=== PATIENT | female | born 1940 | race Hispanic/Latino ===

== ENCOUNTER → 2018-07-17 | Outpatient (CLI) | payer OTHER | END | disposition home or self-care (01) | LOC: RAH 13:16 | PROVIDERS: ATTEND Internal Medicine | DX: I12.9 Hypertensive chronic kidney disease with stage 1 through stage 4 chronic kidney disease, or unspecified chronic kidney disease (principal); E11.22 Type 2 diabetes mellitus with diabetic chronic kidney disease; N18.9 Chronic kidney disease, unspecified; Z76.89 Persons encountering health services in other specified circumstances | CPT/HCPCS: 93922 ==

== ENCOUNTER 2019-07-10 07:54 | Day surgery (SDC) | payer OTHER ==
[~2019-07-10] VITALS: Ht 177.8 cm; Wt 94.3 kg
[~2019-07-10 07:54] MED LIST: ACET-2743 PO; ALLO100T PO; BISA5TAB12 PO; CA C1TAB95 PO; CLOP75TA32 PO; CYAN250014 PO; FURO20TA4 PO; MELA1TAB21 PO; MULT-1203 PO; OMEP40CA13 PO; PRAV20TA4 PO; SODIUM CHLORIDE 0.9% 1000ML 1,000 ML IV ONE; VENL150C2 PO
[2019-07-10 09:26] VITALS: BP 129/73
[2019-07-10] MEDS ORDERED: PROPOFOL 10 MG/ML 20ML VIAL IV ONE ×2 (09:59)
[2019-07-10] MEDS ORDERED: PHENYLEPHRINE HCL 10 MG/ML 1ML VIAL IV ONE (10:31)
[2019-07-10 10:40] VITALS: BP 158/94
[2019-07-10 10:46] VITALS: BP 131/69
[2019-07-10 10:54] VITALS: BP 125/77
[2019-07-10 11:00] VITALS: BP 121/69
== END 2019-07-10 11:05 | disposition home or self-care (01) ==
LOC: DAH 07:54 → ENDO 07:54
PROVIDERS: ATTEND Internal Medicine Gastroenterology
DX: K59.00 Constipation, unspecified (principal); D12.3 Benign neoplasm of transverse colon; D12.4 Benign neoplasm of descending colon; J44.9 Chronic obstructive pulmonary disease, unspecified; E11.69 Type 2 diabetes mellitus with other specified complication; F32.9 Major depressive disorder, single episode, unspecified; E78.5 Hyperlipidemia, unspecified; F41.9 Anxiety disorder, unspecified; M19.90 Unspecified osteoarthritis, unspecified site; Z90.710 Acquired absence of both cervix and uterus; Z98.890 Other specified postprocedural states; Z98.49 Cataract extraction status, unspecified eye; Z98.84 Bariatric surgery status; Z96.659 Presence of unspecified artificial knee joint
CPT/HCPCS: 45380; A4215; A4221; A4222; A4223; A4606; A4615; A4663; J2370; J2704 ×2; J7030

== ENCOUNTER → 2020-01-01 | Outpatient (CLI) | payer OTHER ==
[~2020-01-01] MED LIST changes: +REGADENOSON 0.4 MG/5 ML PF SYG IVP SCH; -SODIUM CHLORIDE 0.9% 1000ML 1,000 ML IV ONE
== END | disposition home or self-care (01) ==
LOC: SHCH 08:27
PROVIDERS: ATTEND Internal Medicine Cardiovascular Disease
DX: R07.9 Chest pain, unspecified (principal)
CPT/HCPCS: 78452; 93017; 96374; A9500 ×2; J2785

== ENCOUNTER 2020-07-21 13:49 | Inpatient (IN) | payer OTHER ==
[~2020-07-21] VITALS: Ht 177.8 cm; Wt 98.0 kg
[~2020-07-21 13:49] MED LIST changes: -OMEP40CA13 PO; +OMEP40CA21 PO; -REGADENOSON 0.4 MG/5 ML PF SYG IVP SCH
[2020-07-21] MEDS ORDERED: 0.9% NACL 500ML IV.SOLN 500 ML IV ONE (14:38)
[2020-07-21] MEDS ORDERED: ADENOSINE 6MG VIAL IV ONE ×2 (14:39→14:55)
[2020-07-21] MEDS ORDERED: ASPIRIN 325 MG TABLET ONE (14:40)
[2020-07-21 14:44] LABS: BASOPHILS % (AUTO) 0.9 % (0.0-5.0); EOSINOPHILS % (AUTO) 4.5 % (0.0-8.0); LYMPHOCYTES % (AUTO) 43.5 % (21.0-51.0); MEAN CORPUSCULAR HEMOGLOBIN 33.7 pg (27.0-33.0); MEAN CORPUSCULAR HGB CONC 33.5 g/dL (32.0-36.0); MEAN CORPUSCULAR VOLUME 100.6 fL (79-99); MONOCYTES % (AUTO) 7.2 % (3.0-13.0); NEUTROPHILS % (AUTO) 43.7 % (40.0-77.0); PLATELET COUNT (AUTO) 212 K/uL (130-400); RED BLOOD CELL COUNT(AUTO) 3.38 MIL/uL (4.00-5.50); RED CELL DISTRIBUTION WIDTH 13.2 % (11.0-15.5); WHITE BLOOD COUNT (AUTO) 5.6 K/uL (4.8-10.8)
[2020-07-21 14:57] LABS: CREATININE 1.1 mg/dL (0.5-1.5); POTASSIUM 3.6 mmol/L (3.5-5.1)
[2020-07-21 14:59] LABS: INR 1.21 (0.85-1.15)
[2020-07-21 15:01] LABS: PARTIAL THROMBOPLASTIN TIME 32.2 SEC (26.3-35.5)
[2020-07-21 15:02] LABS: ALBUMIN 3.4 g/dL (3.5-5.0); BILIRUBIN,TOTAL 0.4 mg/dL (0.2-1.0); TOTAL PROTEIN, SERUM 6.8 g/dL (6.0-8.3)
[2020-07-21] MEDS ORDERED: DILTIAZEM 50MG VIAL IV ONE (15:03)
[2020-07-21 15:04] LABS: B-TYPE NATRIURETIC PEPTIDE 241 pg/mL (0-100)
[2020-07-21] MEDS ORDERED: DILTIAZEM 125 MG/25 ML INJ IV ONE ×2 (16:24→23:34)
[2020-07-21 16:57] LABS: APPEARANCE,URINE Clear (CLEAR); BILIRUBIN,URINE Negative (NEGATIVE); COLOR,URINE Yellow (YELLOW); GLUCOSE, URINE (UA) Negative (NEGATIVE); KETONES,URINE Negative (NEGATIVE); LEUKOCYTE ESTERASE ,URINE Negative (NEGATIVE); NITRATE,URINE Negative (NEGATIVE); OCCULT BLOOD,URINE Negative (NEGATIVE); PH,URINE 5.5 (5.0-8.0); PROTEIN,URINE Negative (NEGATIVE); UROBILINOGEN,URINE 0.2 mg/dL (0.2-1.0)
[2020-07-21 17:05] LABS: AMPHET/METH SCREEN,URINE NEGATIVE (NEGATIVE); BARBITURATE SCREEN, URINE NEGATIVE (NEGATIVE); BENZODIAZEPINES SCREEN,URINE NEGATIVE (NEGATIVE); CANNABINOID SCREEN,URINE NEGATIVE (NEGATIVE); COCAINE SCREEN,URINE NEGATIVE (NEGATIVE); OPIATE SCREEN,URINE NEGATIVE (NEGATIVE); PHENCYCLIDINE SCREEN,URINE NEGATIVE (NEGATIVE)
[2020-07-21] MEDS ORDERED: DILTIAZEM 125MG+100 ML NS 125 ML IV SCH (19:45)
[2020-07-21] MEDS: ENOXAPARIN SODIUM 40 MG/0.4 ML SYRINGE SQ SCH (21:00)
[2020-07-21 23:25] VITALS: BP 105/63
[2020-07-21] MEDS ORDERED: 0.9%NACL 100ML 100 ML IV ONE (23:34)
[2020-07-22] VITALS (12 sets, daily range): BP systolic 94–125; BP diastolic 52–76
[2020-07-22] MEDS ORDERED: MELA5TAB14 PO (00:35)
[2020-07-22] MEDS ORDERED: CYAN-35 PO (00:35)
[2020-07-22] MEDS ORDERED: SENN1TAB53 PO (00:35)
[2020-07-22] MEDS ORDERED: DILT-116 PO (00:35)
[2020-07-22] MEDS ORDERED: VENL-63 PO (00:35)
[2020-07-22] MEDS ORDERED: MULT-30 PO (00:35)
[2020-07-22] MEDS ORDERED: ACET-2893 PO (00:35)
[2020-07-22] MEDS ORDERED: RIVA20TA PO (00:35)
[2020-07-22] MEDS ORDERED: PROP150T28 PO (00:35)
[2020-07-22 04:57] LABS: HEMATOCRIT 31.2 % (36-48); MEAN CORPUSCULAR HEMOGLOBIN 33.8 pg (27.0-33.0); MEAN CORPUSCULAR HGB CONC 33.7 g/dL (32.0-36.0); MEAN CORPUSCULAR VOLUME 100.3 fL (79-99); RED BLOOD CELL COUNT(AUTO) 3.11 MIL/uL (4.00-5.50); RED CELL DISTRIBUTION WIDTH 13.2 % (11.0-15.5); WHITE BLOOD COUNT (AUTO) 6.5 K/uL (4.8-10.8)
[2020-07-22 05:06] LABS: CREATININE 1.1 mg/dL (0.5-1.5); POTASSIUM 3.5 mmol/L (3.5-5.1)
[2020-07-22] MEDS ORDERED: MEPERIDINE-PF 25 MG/ML SYG ONE ×2 (15:25→18:19)
[2020-07-22] MEDS ORDERED: HEPARIN 10,000 UNIT/10ML (1,000 UNIT/ML) VIAL ONE (15:25)
[2020-07-22] MEDS ORDERED: MIDAZOLAM HCL 1 MG/ML 2ML VIAL ONE ×2 (15:26→18:19)
[2020-07-22] MEDS ORDERED: LIDOCAINE HCL 400MG/20ML VIAL ONE (15:26)
[2020-07-22] MEDS ORDERED: ISOPROTERENOL HCL 0.2 MG/ML AMP/VIAL/BAG ONE ×2 (16:41→18:18)
[2020-07-22] MEDS ORDERED: AMIODARONE 150MG VIAL ONE ×2 (19:39→23:33)
[2020-07-22] MEDS ORDERED: AMIODARONE 900MG VIAL 360 MG in DEXTROSE 5%-WATER 200 ML IV SCH (21:00)
[2020-07-22] MEDS ORDERED: AMIODARONE 900MG VIAL 900 MG in DEXTROSE 5%-WATER 500 ML IV SCH (21:00)
[2020-07-22] MEDS ORDERED: AMIODARONE 900MG VIAL 150 MG in DEXTROSE 5%-WATER 100 ML IV SCH (23:15)
[2020-07-22] MEDS ORDERED: DEXTROSE 5%-WATER 100 ML IV ONE (23:33)
[2020-07-23] VITALS (7 sets, daily range): BP systolic 85–111; BP diastolic 49–71
[2020-07-23] MEDS ORDERED: AMIODARONE 900MG VIAL 450 MG in DEXTROSE 5%-WATER 250 ML IV SCH (03:00)
[2020-07-23] MEDS ORDERED: MELATONIN 5 MG PO PRN (08:15)
[2020-07-23] MEDS: ENOXAPARIN SODIUM 40 MG/0.4 ML SYRINGE SQ SCH ×3 (09:00→20:27)
[2020-07-23] MEDS ORDERED: PROPAFENONE HCL 150 MG TABLET PO SCH (09:00)
[2020-07-23] MEDS: ALLOPURINOL 100 MG TABLET PO SCH (11:09)
[2020-07-23] MEDS: FUROSEMIDE 20 MG TABLET PO SCH (11:09)
[2020-07-23] MEDS ORDERED: AMIODARONE 200 MG TABLET PO ONE (12:40)
[2020-07-23] MEDS ORDERED: POTASSIUM CHLORIDE 20MEQ/100ML 100 ML IV PRN (12:45)
[2020-07-23] MEDS ORDERED: LIDOCAINE HCL-MPF 1% 2ML VIAL IV PRN (12:45)
[2020-07-23] MEDS ORDERED: POTASSIUM CHLORIDE 10% ELIXIR 20 MEQ/15 ML UDCUP PO PRN (12:45)
[2020-07-23] MEDS ORDERED: AMIODARONE 200 MG TABLET PO SCH ×2 (14:00→21:00)
[2020-07-23] MEDS ORDERED: SENNOSIDES 8.6 MG TABLET PO SCH (14:20)
[2020-07-23] MEDS ORDERED: VENLAFAXINE HCL XR 37.5 MG CAP PO SCH (14:30)
[2020-07-23] MEDS ORDERED: DOCUSATE SODIUM 100 MG CAP PO SCH (14:30)
[2020-07-23] MEDS: CA 600MG+VIT D 400 UNIT TAB 1 TAB TABLET PO SCH (16:54)
[2020-07-23] MEDS: VENLAFAXINE HCL XR 37.5 MG CAP PO SCH (16:55)
[2020-07-23] MEDS: SIMVASTATIN 20 MG TABLET PO SCH (20:27)
[2020-07-23] MEDS: AMIODARONE 200 MG TABLET PO SCH (20:27)
[2020-07-24 00:38] VITALS: BP 122/79
[2020-07-24 03:51] VITALS: BP 100/68
[2020-07-24 04:07] LABS: HEMATOCRIT 32.4 % (36-48); MEAN CORPUSCULAR HEMOGLOBIN 32.7 pg (27.0-33.0); MEAN CORPUSCULAR VOLUME 99.1 fL (79-99); PLATELET COUNT (AUTO) 181 K/uL (130-400); RED BLOOD CELL COUNT(AUTO) 3.27 MIL/uL (4.00-5.50); RED CELL DISTRIBUTION WIDTH 13.2 % (11.0-15.5); WHITE BLOOD COUNT (AUTO) 8.7 K/uL (4.8-10.8)
[2020-07-24 04:30] LABS: BILIRUBIN,TOTAL 0.6 mg/dL (0.2-1.0); CREATININE 0.9 mg/dL (0.5-1.5); POTASSIUM 3.4 mmol/L (3.5-5.1); TOTAL PROTEIN, SERUM 6.1 g/dL (6.0-8.3)
[2020-07-24 05:00] LABS: BASOPHILS % (MANUAL) 1 % (0-2); EOSINOPHILS % (MANUAL) 3 % (1-6); LYMPHOCYTES % (MANUAL) 30 % (22-44); MONOCYTES % (MANUAL) 7 % (2-9); SEGMENTED NEUTROPHILS % 59 % (40-70)
[2020-07-24 05:01] LABS: MAN.DIFF COMMENT-IMPRESSION MANUAL DIFFERENTIAL; PLATELET MORPHOLOGY COMMENT ADEQUATE
[2020-07-24] MEDS ORDERED: ACETAMINOPHEN WITH CODEINE 1 TAB TAB PO PRN (08:00)
[2020-07-24 08:18] VITALS: BP 109/76
[2020-07-24] MEDS ORDERED: DILTIAZEM 180MG SR CAP PO SCH (09:00)
[2020-07-24] MEDS: PANTOPRAZOLE 40 MG TAB DR PO SCH (09:06)
[2020-07-24] MEDS: CYANOCOBALAMIN (VITAMIN B-12) 1,000 MCG TABLET PO SCH (09:06)
[2020-07-24] MEDS: CA 600MG+VIT D 400 UNIT TAB 1 TAB TABLET PO SCH ×2 (09:07→16:02)
[2020-07-24] MEDS: FUROSEMIDE 20 MG TABLET PO SCH (09:07)
[2020-07-24] MEDS: ALLOPURINOL 100 MG TABLET PO SCH (09:07)
[2020-07-24] MEDS: AMIODARONE 200 MG TABLET PO SCH ×2 (09:07→20:39)
[2020-07-24] MEDS: MULTIVITAMIN WITH MINERALS TABLET PO SCH (09:07)
[2020-07-24] MEDS: RIVAROXABAN 20 MG TABLET PO SCH (09:07)
[2020-07-24] MEDS: KCL 20 MEQ ERTAB PO PRN ×2 (09:08→13:03)
[2020-07-24 12:00] VITALS: BP 118/80
[2020-07-24] MEDS: VENLAFAXINE HCL XR 37.5 MG CAP PO SCH (13:02)
[2020-07-24 16:00] VITALS: BP 110/75
[2020-07-24 20:00] VITALS: BP 108/66
[2020-07-24] MEDS: SIMVASTATIN 20 MG TABLET PO SCH (20:39)
[2020-07-24] MEDS: ACETAMINOPHEN 325 MG TAB PO PRN (23:17)
[2020-07-25] VITALS: BP 117/63
[2020-07-25 04:00] VITALS: BP 92/56
[2020-07-25 05:22] LABS: BASOPHILS % (AUTO) 0.4 % (0.0-5.0); EOSINOPHILS % (AUTO) 0.9 % (0.0-8.0); HEMATOCRIT 33.1 % (36-48); LYMPHOCYTES % (AUTO) 23.1 % (21.0-51.0); MEAN CORPUSCULAR HEMOGLOBIN 33.9 pg (27.0-33.0); MEAN CORPUSCULAR HGB CONC 33.8 g/dL (32.0-36.0); MEAN CORPUSCULAR VOLUME 100.3 fL (79-99); MONOCYTES % (AUTO) 10.3 % (3.0-13.0); PLATELET COUNT (AUTO) 173 K/uL (130-400); RED CELL DISTRIBUTION WIDTH 13.3 % (11.0-15.5); WHITE BLOOD COUNT (AUTO) 11.2 K/uL (4.8-10.8)
[2020-07-25] MEDS: ACETAMINOPHEN 325 MG TAB PO PRN ×2 (05:37→14:18)
[2020-07-25 05:55] LABS: ALBUMIN 3.1 g/dL (3.5-5.0); BILIRUBIN,TOTAL 1.6 mg/dL (0.2-1.0); CREATININE 1.1 mg/dL (0.5-1.5); POTASSIUM 4.4 mmol/L (3.5-5.1); TOTAL PROTEIN, SERUM 7.2 g/dL (6.0-8.3)
[2020-07-25 08:00] VITALS: BP 91/54
[2020-07-25] MEDS ORDERED: DILTIAZEM 180MG SR CAP PO SCH (09:00)
[2020-07-25] MEDS: MULTIVITAMIN WITH MINERALS TABLET PO SCH (09:13)
[2020-07-25] MEDS: CYANOCOBALAMIN (VITAMIN B-12) 1,000 MCG TABLET PO SCH (09:13)
[2020-07-25] MEDS: RIVAROXABAN 20 MG TABLET PO SCH (09:13)
[2020-07-25] MEDS: CA 600MG+VIT D 400 UNIT TAB 1 TAB TABLET PO SCH ×2 (09:13→16:52)
[2020-07-25] MEDS: FUROSEMIDE 20 MG TABLET PO SCH (09:14)
[2020-07-25] MEDS: PANTOPRAZOLE 40 MG TAB DR PO SCH (09:14)
[2020-07-25] MEDS: ALLOPURINOL 100 MG TABLET PO SCH (09:14)
[2020-07-25] MEDS: AMIODARONE 200 MG TABLET PO SCH (09:14)
[2020-07-25] MEDS ORDERED: AMIO400T4 PO (10:43)
[2020-07-25] MEDS ORDERED: AMIO200T68 PO (10:43)
[2020-07-25 11:38] VITALS: BP 112/65
[2020-07-25] MEDS: VENLAFAXINE HCL XR 37.5 MG CAP PO SCH ×2 (12:50→16:52)
[2020-07-25 16:00] VITALS: BP 120/95
[2021-01-26] MEDS ORDERED: MELA1TAB21 PO (11:44)
[2021-01-26] MEDS ORDERED: BACL10TA PO (11:44)
[2021-01-26] MEDS ORDERED: MULT-1367 PO (11:44)
[2021-01-26] MEDS ORDERED: AMIO200T68 PO (11:47)
== END 2020-07-25 17:30 | disposition home or self-care (01) | DRG 273 ==
LOC: EDH 13:49 → OBSVTOIN 16:18 → EDHIP 16:18 → 3CH 21:28 → EDHIP 22:19 → 4CH 23:23
PROVIDERS: ADMIT Internal Medicine; ATTEND Internal Medicine
PROC: 4A023FZ Measurement of Cardiac Rhythm, Percutaneous Approach (ICD-10-PCS; principal; 2020-07-21)
PROC: 4A0234Z Measurement of Cardiac Electrical Activity, Percutaneous Approach (ICD-10-PCS; 2020-07-21)
PROC: 02K83ZZ Map Conduction Mechanism, Percutaneous Approach (ICD-10-PCS; 2020-07-21)
PROC: 5A2204Z Restoration of Cardiac Rhythm, Single (ICD-10-PCS; 2020-07-21)
DX: I47.1 Supraventricular tachycardia (principal); I50.33 Acute on chronic diastolic (congestive) heart failure; G81.91 Hemiplegia, unspecified affecting right dominant side; I13.0 Hypertensive heart and chronic kidney disease with heart failure and stage 1 through stage 4 chronic kidney disease, or unspecified chronic kidney disease; I48.0 Paroxysmal atrial fibrillation; E11.22 Type 2 diabetes mellitus with diabetic chronic kidney disease; E78.5 Hyperlipidemia, unspecified; F32.9 Major depressive disorder, single episode, unspecified; I34.0 Nonrheumatic mitral (valve) insufficiency; J44.9 Chronic obstructive pulmonary disease, unspecified; N18.9 Chronic kidney disease, unspecified; M19.90 Unspecified osteoarthritis, unspecified site; E87.6 Hypokalemia
CPT/HCPCS: 36415; 70450; 70544; 70551; 71045; 73020; 80048; 80053; 80305; 81003; 82550; 83605; 83690; 83735; 83880; 84443; 84484; 85025; 85027; 85610; 85730; 87040; 93005; 93613; 93621; 93623; 93653; 97039; 99156; 99157; 99291; C1730; C1894; G0378; J0153; J0282; J1644; J1650; J2175; J2250; J3490; J7040; J7060

== ENCOUNTER 2021-01-27 06:06 | Day surgery (SDC) | payer OTHER ==
[2021-01-22 10:39] LABS: BASOPHILS % (AUTO) 0.5 % (0.0-5.0); EOSINOPHILS % (AUTO) 1.2 % (0.0-8.0); HEMATOCRIT 33.6 % (36-48); LYMPHOCYTES % (AUTO) 11.8 % (21.0-51.0); MEAN CORPUSCULAR HEMOGLOBIN 34.8 pg (27.0-33.0); MEAN CORPUSCULAR HGB CONC 31.5 g/dL (32.0-36.0); MEAN CORPUSCULAR VOLUME 110.2 fL (79-99); MONOCYTES % (AUTO) 5.8 % (3.0-13.0); NEUTROPHILS % (AUTO) 80.3 % (40.0-77.0); PLATELET COUNT (AUTO) 199 K/uL (130-400); RED BLOOD CELL COUNT(AUTO) 3.05 MIL/uL (4.00-5.50); RED CELL DISTRIBUTION WIDTH 14.8 % (11.0-15.5); WHITE BLOOD COUNT (AUTO) 9.3 K/uL (4.8-10.8)
[2021-01-22 10:49] LABS: CREATININE 1.3 mg/dL (0.5-1.5); POTASSIUM 4.2 mmol/L (3.5-5.1)
[2021-01-22 10:51] LABS: INR 1.19 (0.85-1.15); PROTHROMBIN TIME 12.8 SEC (9.6-11.6)
[~2021-01-27] VITALS: Ht 177.8 cm; Wt 100.4 kg
[~2021-01-27 06:06] MED LIST changes: +0.9%NACL 1000ML 1,000 ML IV SCH; -ACET-2743 PO; +AMIO200T6 PO; +BACL10TA PO; -BISA5TAB12 PO; -CLOP75TA32 PO; +CYAN-35 PO; -CYAN250014 PO; -MULT-1203 PO; +MULT-1367 PO; +MULT-30 PO; +RIVA20TA PO; +VENL-63 PO; -VENL150C2 PO
[2021-01-27 06:10] VITALS: BP 130/76
[2021-01-27] MEDS ORDERED: LIDOCAINE HCL 1% MDV 50ML VIAL ONE (07:21)
[2021-01-27] MEDS ORDERED: BUPIVACAINE/PF 0.25% 30ML VIAL IJ ONE (07:21)
[2021-01-27] MEDS ORDERED: MIDAZOLAM HCL 1 MG/ML 2ML VIAL ONE (07:39)
[2021-01-27] MEDS ORDERED: MEPERIDINE-PF 25 MG/ML SYG ONE (07:39)
[2021-01-27] MEDS ORDERED: OCTYL 2-CYANOACRYLATE 1 EACH TP ONE (07:57)
[2021-01-27 08:55] VITALS: BP 148/65
[2021-01-27 09:00] VITALS: BP 147/64
== END 2021-01-27 09:48 | disposition home or self-care (01) ==
LOC: DAH 06:06
PROVIDERS: ATTEND Internal Medicine Cardiovascular Disease
DX: I63.9 Cerebral infarction, unspecified (principal); I47.1 Supraventricular tachycardia; R42 Dizziness and giddiness; I48.0 Paroxysmal atrial fibrillation; E78.5 Hyperlipidemia, unspecified; K21.9 Gastro-esophageal reflux disease without esophagitis; I10 Essential (primary) hypertension; E66.9 Obesity, unspecified; R29.6 Repeated falls; G47.30 Sleep apnea, unspecified; M17.0 Bilateral primary osteoarthritis of knee; Z79.899 Other long term (current) drug therapy; Z79.82 Long term (current) use of aspirin; Z79.01 Long term (current) use of anticoagulants; Z98.890 Other specified postprocedural states; Z98.84 Bariatric surgery status; Z68.30 Body mass index [BMI] 30.0-30.9, adult
CPT/HCPCS: 33285; 36415; 80048; 85025; 85610; 85730; 93005; C1894; J2175; J2250; J3490; J7030

== ENCOUNTER 2021-04-29 23:44 | Emergency (ER) | payer OTHER ==
[~2021-04-29] VITALS: Ht 177.8 cm; Wt 99.8 kg
[~2021-04-29 23:44] MED LIST changes: -0.9%NACL 1000ML 1,000 ML IV SCH; -AMIO200T6 PO; +AMIO200T68 PO
[2021-04-30] MEDS ORDERED: PROMETHAZINE HCL 25 MG/ML 1ML AMPULE IM ONE (00:30)
[2021-04-30] MEDS ORDERED: ONDANSETRON ODT 4MG TAB SL ONE (00:30)
[2021-04-30] MEDS ORDERED: LIDOP TP (01:16)
[2021-04-30 02:02] VITALS: BP 136/78
== END 2021-04-30 02:14 | disposition home or self-care (01) ==
LOC: EDH 23:44
DX: R11.0 Nausea (principal); M54.50 Low back pain, unspecified; M62.838 Other muscle spasm; R42 Dizziness and giddiness; T40.2X5A Adverse effect of other opioids, initial encounter; E11.9 Type 2 diabetes mellitus without complications; E78.5 Hyperlipidemia, unspecified; I10 Essential (primary) hypertension; I48.91 Unspecified atrial fibrillation; Z79.899 Other long term (current) drug therapy; Z98.84 Bariatric surgery status; Y92.89 Other specified places as the place of occurrence of the external cause
CPT/HCPCS: 96372; 99283; J2550

== ENCOUNTER 2021-12-13 11:26 | Emergency (ER) | payer OTHER ==
[~2021-12-13] VITALS: Ht 177.8 cm; Wt 98.9 kg
[~2021-12-13 11:26] MED LIST changes: +LIDOP TP
[2021-12-13 12:20] LABS: BASOPHILS % (AUTO) 0.7 % (0.0-5.0); EOSINOPHILS % (AUTO) 1.9 % (0.0-8.0); HEMATOCRIT 35.5 % (36-48); MEAN CORPUSCULAR HEMOGLOBIN 34.6 pg (27.0-33.0); MONOCYTES % (AUTO) 5.8 % (3.0-13.0); NEUTROPHILS % (AUTO) 63.5 % (40.0-77.0); PLATELET COUNT (AUTO) 251 K/uL (130-400); RED BLOOD CELL COUNT(AUTO) 3.38 MIL/uL (4.00-5.50); RED CELL DISTRIBUTION WIDTH 13.5 % (11.0-15.5); WHITE BLOOD COUNT (AUTO) 7.2 K/uL (4.8-10.8)
[2021-12-13 12:46] LABS: APPEARANCE,URINE CLEAR (CLEAR); BILIRUBIN,URINE NEGATIVE (NEGATIVE); COLOR,URINE YELLOW (YELLOW); GLUCOSE, URINE (UA) NEGATIVE (NEGATIVE); KETONES,URINE NEGATIVE (NEGATIVE); LEUKOCYTE ESTERASE ,URINE MODERATE (NEGATIVE); NITRATE,URINE POSITIVE (NEGATIVE); OCCULT BLOOD,URINE SMALL (NEGATIVE); PROTEIN,URINE TRACE mg/dL (NEGATIVE); UROBILINOGEN,URINE 0.2 mg/dL (0.2-1.0)
[2021-12-13 12:47] LABS: B-TYPE NATRIURETIC PEPTIDE 308 pg/mL (0-100)
[2021-12-13 12:51] LABS: INR 1.05 (0.85-1.15); PROTHROMBIN TIME 11.4 SEC (9.6-11.6)
[2021-12-13 12:52] LABS: CREATININE 1.2 mg/dL (0.5-1.5)
[2021-12-13 12:53] LABS: PARTIAL THROMBOPLASTIN TIME 32.8 SEC (26.3-35.5)
[2021-12-13 12:54] LABS: AMPHET/METH SCREEN,URINE NEGATIVE (NEGATIVE); BARBITURATE SCREEN, URINE NEGATIVE (NEGATIVE); BENZODIAZEPINES SCREEN,URINE NEGATIVE (NEGATIVE); CANNABINOID SCREEN,URINE NEGATIVE (NEGATIVE); COCAINE SCREEN,URINE NEGATIVE (NEGATIVE); PHENCYCLIDINE SCREEN,URINE NEGATIVE (NEGATIVE)
[2021-12-13 12:56] LABS: ALBUMIN 3.3 g/dL (3.5-5.0); TOTAL PROTEIN, SERUM 7.1 g/dL (6.0-8.3)
[2021-12-13 13:06] LABS: BACTERIA,URINE Moderate /HPF (None Seen)
[2021-12-13] MEDS ORDERED: CEPH500B PO (13:40)
[2021-12-13] MEDS: CEFTRIAXONE 1G VIAL IVP STA (14:20)
[2021-12-13 14:41] VITALS: BP 145/78
== END 2021-12-13 15:06 | disposition home or self-care (01) ==
LOC: EDH 11:26
DX: N39.0 Urinary tract infection, site not specified (principal); R07.89 Other chest pain; I11.9 Hypertensive heart disease without heart failure; E11.9 Type 2 diabetes mellitus without complications; E78.00 Pure hypercholesterolemia, unspecified; I48.91 Unspecified atrial fibrillation; Z79.899 Other long term (current) drug therapy; Z90.49 Acquired absence of other specified parts of digestive tract; Z98.84 Bariatric surgery status
CPT/HCPCS: 99285; 96374; 71045; 82550; 84484; 80053; 83880; 80305; 85025; 85610; 85730; 87077; 87088; 87186; 36415; 93005; 81001; J0696

== ENCOUNTER → 2021-12-16 | Outpatient (CLI) | payer OTHER ==
[~2021-12-16] MED LIST changes: +ALBUTEROL 0.083% 2.5 MG/3 ML INH IH ONE; +CEPH500B PO
== END | disposition home or self-care (01) ==
LOC: RESP 09:01
PROVIDERS: ATTEND Internal Medicine Cardiovascular Disease
DX: R06.02 Shortness of breath (principal); J44.9 Chronic obstructive pulmonary disease, unspecified
CPT/HCPCS: 94060; 94727; 94729

== ENCOUNTER → 2022-01-08 | Outpatient (CLI) | payer OTHER ==
[~2022-01-08] MED LIST changes: -ALBUTEROL 0.083% 2.5 MG/3 ML INH IH ONE
== END | disposition home or self-care (01) ==
LOC: SHCH 07:41
PROVIDERS: ATTEND Internal Medicine Cardiovascular Disease
DX: I08.0 Rheumatic disorders of both mitral and aortic valves (principal); I48.0 Paroxysmal atrial fibrillation; I47.1 Supraventricular tachycardia; I49.8 Other specified cardiac arrhythmias; Z86.73 Personal history of transient ischemic attack (TIA), and cerebral infarction without residual deficits
CPT/HCPCS: 93306

== ENCOUNTER → 2022-01-11 | Outpatient (CLI) | payer OTHER ==
[~2022-01-11] MED LIST changes: +REGADENOSON 0.4 MG/5 ML PF SYG IVP SCH
== END | disposition home or self-care (01) ==
LOC: SHCH 09:04
PROVIDERS: ATTEND Internal Medicine Cardiovascular Disease
DX: R06.02 Shortness of breath (principal); R07.9 Chest pain, unspecified
CPT/HCPCS: 78452; 93017; J2785; A9500 ×2; 96374

== ENCOUNTER → 2022-03-01 | Outpatient (CLI) | payer OTHER ==
[~2022-03-01] MED LIST changes: -REGADENOSON 0.4 MG/5 ML PF SYG IVP SCH
== END | disposition home or self-care (01) ==
LOC: SHCH 12:55
PROVIDERS: ATTEND Internal Medicine Cardiovascular Disease
DX: I87.2 Venous insufficiency (chronic) (peripheral) (principal); G45.1 Carotid artery syndrome (hemispheric); I73.9 Peripheral vascular disease, unspecified
CPT/HCPCS: 93925; 93970

== ENCOUNTER → 2022-06-01 | Outpatient (CLI) | payer OTHER ==
[2022-06-01 11:25] LABS: CREATININE 1.3 mg/dL (0.5-1.5); POTASSIUM 4.2 mmol/L (3.5-5.1)
== END | disposition home or self-care (01) ==
LOC: LAB 10:36
PROVIDERS: ATTEND Internal Medicine Cardiovascular Disease
DX: I47.1 Supraventricular tachycardia (principal)
CPT/HCPCS: 36415; 80048

== ENCOUNTER 2023-03-22 13:40 | Emergency (ER) | payer OTHER ==
[~2023-03-22] VITALS: Ht 180.3 cm; Wt 88.5 kg
[~2023-03-22 13:40] MED LIST changes: -MELA1TAB21 PO; +MELA1TAB73 PO
[2023-03-22 14:16] LABS: BASOPHILS # (AUTO) 0.03 K/uL (0.00-0.20); BASOPHILS % (AUTO) 0.5 % (0.0-5.0); EOSINOPHILS % (AUTO) 1.6 % (0.0-8.0); HEMATOCRIT 38.7 % (36-48); IMMATURE GRANULOCYTE ABSOLUTE 0.02 K/uL (0-1); LYMPHOCYTES # (AUTO) 1.2 K/uL (1.0-4.8); LYMPHOCYTES % (AUTO) 18.7 % (21.0-51.0); MEAN CORPUSCULAR HEMOGLOBIN 33.5 pg (27.0-33.0); MEAN CORPUSCULAR HGB CONC 32.8 g/dL (32.0-36.0); MEAN CORPUSCULAR VOLUME 102.1 fL (79-99); MONOCYTES # (AUTO) 0.4 K/uL (0.1-1.0); MONOCYTES % (AUTO) 6.5 % (3.0-13.0); NEUTROPHILS # (AUTO) 4.4 K/uL (1.8-7.7); NEUTROPHILS % (AUTO) 72.4 % (40.0-77.0); PLATELET COUNT (AUTO) 224 K/uL (130-400); RED BLOOD CELL COUNT(AUTO) 3.79 MIL/uL (4.00-5.50); RED CELL DISTRIBUTION WIDTH 13.4 % (11.0-15.5); WHITE BLOOD COUNT (AUTO) 6.1 K/uL (4.8-10.8)
[2023-03-22 14:38] LABS: ALBUMIN 3.5 g/dL (3.5-5.0); BILIRUBIN,TOTAL 0.6 mg/dL (0.2-1.0); CREATININE 1.7 mg/dL (0.5-1.5); POTASSIUM 3.2 mmol/L (3.5-5.1); TOTAL PROTEIN, SERUM 7.6 g/dL (6.0-8.3)
[2023-03-22 14:41] LABS: ACETAMINOPHEN 2 mcg/mL (10-30)
[2023-03-22 14:42] LABS: SALICYLATE < 2.8 mg/dL (2.8-20.0)
[2023-03-22] MEDS ORDERED: SENN8.6T32 PO (14:51)
[2023-03-22] MEDS ORDERED: ACET-2079 PO (14:51)
[2023-03-22] MEDS ORDERED: BACL20TA PO (14:51)
[2023-03-22] MEDS ORDERED: ACET-66 PO (14:51)
[2023-03-22] MEDS ORDERED: DOCU100C33 PO (14:51)
[2023-03-22] MEDS ORDERED: ALEN70TA80 PO (14:51)
[2023-03-22 16:09] VITALS: BP 131/76; PULSE 70; RESP 17; O2SAT 97
[2023-03-22] MEDS ORDERED: 0.9% NACL 500ML IV.SOLN 500 ML IV ONE (18:00)
[2023-03-22] MEDS ORDERED: POTASSIUM BICARB/CIT AC 25 MEQ TABLET.EFF PO ONE (18:00)
[2023-03-22 19:14] LABS: ADD UA MICROSCOPIC YES; APPEARANCE,URINE CLEAR (CLEAR); BILIRUBIN,URINE NEGATIVE (NEGATIVE); COLOR,URINE YELLOW (YELLOW); GLUCOSE, URINE (UA) NEGATIVE (NEGATIVE); KETONES,URINE NEGATIVE (NEGATIVE); LEUKOCYTE ESTERASE ,URINE NEGATIVE Leu/uL (NEGATIVE); NITRATE,URINE NEGATIVE (NEGATIVE); OCCULT BLOOD,URINE NEGATIVE (NEGATIVE); PROTEIN,URINE 30 mg/dL (NEGATIVE); UROBILINOGEN,URINE 0.2 mg/dL (0.2-1.0)
[2023-03-22 19:21] LABS: MUCUS,URINE RARE LPF (None Seen); RBC,URINE 0-1 /HPF (0-1); SQUAMOUS EPITHELIAL CELL,UR RARE /HPF (0-2)
[2023-03-22 21:53] LABS: AMPHET/METH SCREEN,URINE NEGATIVE (NEGATIVE); BARBITURATE SCREEN, URINE NEGATIVE (NEGATIVE); BENZODIAZEPINES SCREEN,URINE NEGATIVE (NEGATIVE); CANNABINOID SCREEN,URINE NEGATIVE (NEGATIVE); COCAINE SCREEN,URINE NEGATIVE (NEGATIVE); OPIATE SCREEN,URINE POSITIVE (NEGATIVE); PHENCYCLIDINE SCREEN,URINE NEGATIVE (NEGATIVE)
== END 2023-03-22 21:11 | disposition home or self-care (01) ==
LOC: EDH 13:40
DX: R44.1 Visual hallucinations (principal); T43.215A Adverse effect of selective serotonin and norepinephrine reuptake inhibitors, initial encounter; E11.9 Type 2 diabetes mellitus without complications; E78.00 Pure hypercholesterolemia, unspecified; I10 Essential (primary) hypertension; I25.10 Atherosclerotic heart disease of native coronary artery without angina pectoris; I48.91 Unspecified atrial fibrillation; Z79.899 Other long term (current) drug therapy; Z86.73 Personal history of transient ischemic attack (TIA), and cerebral infarction without residual deficits; Z90.49 Acquired absence of other specified parts of digestive tract; Y92.89 Other specified places as the place of occurrence of the external cause
CPT/HCPCS: 99284; 70450; 80053; 80305; 85025; 83605; 81001; 36415; J7040; G0481

== ENCOUNTER → 2023-08-23 | Outpatient (CLI) | payer OTHER ==
[~2023-08-23] MED LIST changes: +ACET-2079 PO; +ACET-66 PO; +ALEN70TA80 PO; -ALLO100T PO; -BACL10TA PO; +BACL20TA PO; -CA C1TAB95 PO; -CEPH500B PO; +DOCU100C33 PO; -FURO20TA4 PO; -LIDOP TP; +SENN8.6T32 PO
[2023-08-23 12:23] LABS: CREATININE 1.5 mg/dL (0.5-1.0); MAGNESIUM 2.1 mg/dL (1.80-2.40); POTASSIUM 4.7 mmol/L (3.5-5.1)
== END | disposition home or self-care (01) ==
LOC: LAB 09:36
PROVIDERS: ATTEND Internal Medicine Cardiovascular Disease
DX: I95.1 Orthostatic hypotension (principal)
CPT/HCPCS: 36415; 80048; 83735

== ENCOUNTER 2025-03-15 18:35 | Inpatient (IN) | payer MEDICARE ==
[~2025-03-15] VITALS: Ht 177.8 cm; Wt 94.3 kg
[~2025-03-15 18:35] MED LIST changes: -ALEN70TA80 PO; -AMIO200T68 PO; +AMIO200T73 PO; +BIOT1TAB22 PO; +BUDE10.7 IH; +BUSP10TA3 PO; +CRAN500T7 PO; +FURO20TA4 PO; +FURO20TA6 PO; +FURO40TA5 PO; -MULT-1367 PO; -MULT-30 PO; -PRAV20TA4 PO; -VENL-63 PO; +VENL75CA97 PO; +prenatal PO; +vit c PO
[2025-03-15 20:00] VITALS: O2SAT 97
[2025-03-15 20:05] VITALS: BP 105/68; PULSE 104; RESP 17; TEMP 98.3
[2025-03-15] MEDS ORDERED: PoTASSium chl 10% ELIXIR 20MEQ 20 MEQ/15 ML UDCUP PO PRN (21:00)
[2025-03-15] MEDS ORDERED: DEXTROSE 50%-WATER 50 ML DISP.SYRIN IV PRN (21:00)
[2025-03-15] MEDS ORDERED: PoTASSium chloRIDE 20MEQ ER 20 MEQ ERTAB PO PRN (21:00)
[2025-03-15] MEDS ORDERED: GLUCAGON 1MG KIT 1 MG ML IM PRN (21:00)
[2025-03-15 22:23] VITALS: PULSE 98; RESP 19; O2SAT 94
[2025-03-15 22:24] VITALS: PULSE 90; RESP 19
[2025-03-15] MEDS: DRONEDARONE HYDROCHLORIDE 400 MG TABLET PO SCH (22:47)
[2025-03-15] MEDS: SENNOSIDES 8.6 MG TABLET PO SCH (22:48)
[2025-03-15] MEDS: MELATONIN 5 MG TABLET PO SCH (22:50)
[2025-03-15] MEDS: BACLOFEN 10 MG TABLET PO PRN (22:53)
[2025-03-15] MEDS: PRISTIQ PO SCH (22:59)
[2025-03-15] MEDS: BREZTRI IH SCH (23:00)
[2025-03-16] VITALS (11 sets, daily range): BP systolic 99–114; BP diastolic 56–75; PULSE 65–124; RESP 14–20; TEMP 97.4–98.8; O2SAT 96–98
[2025-03-16] MEDS: HYDROcodone/APAP 5/325 1 TAB TABLET PO PRN (03:51)
[2025-03-16 04:15] LABS: NUCLEATED RED BLOOD CELLS 0.0 % (0.0-0.19); PLATELET COUNT (AUTO) 187 K/uL (130-400); RED BLOOD CELL COUNT(AUTO) 3.07 MIL/uL (4.00-5.50); RED CELL DISTRIBUTION WIDTH 14.6 % (11.0-15.5); WHITE BLOOD COUNT (AUTO) 8.6 K/uL (4.8-10.8)
[2025-03-16 04:44] LABS: ASPARTATE AMINOTRANSFERASE 14.0 U/L (10-37); CREATININE 1.6 mg/dL (0.5-1.0); GLOMERULAR FILTR. RATE CALC 32.0 mL/min (>90); GLUCOSE,RANDOM 98.0 mg/dL (70-105); SODIUM SERUM 141.0 mmol/L (136-145); TOTAL PROTEIN, SERUM 6.0 g/dL (6.0-8.3); UREA NITROGEN, BLOOD 30.0 mg/dL (7-18)
[2025-03-16] MEDS: CYANOCOBALAMIN (VITAMIN B-12) 1,000 MCG TABLET PO SCH (09:00)
[2025-03-16] MEDS: LACTULOSE 20 GM/30 ML UDCUP PO SCH (09:00)
[2025-03-16] MEDS: MULTIVITAMIN TABLET PO SCH (09:34)
[2025-03-16] MEDS: ASPIRIN 81MG CHEW TAB PO SCH (09:35)
[2025-03-16] MEDS: LIDOCAINE 4% ADH..PATCH TP SCH (09:37)
[2025-03-16] MEDS: ENOXAPARIN SODIUM 30 MG/0.3 ML SQ SCH (09:39)
--- NOTE | 2025-03-16 10:14 | CONS ---
CONSULT NOTE: REQUESTING PHYSICIAN: Darryl Jackson MD REASON FOR CONSULT: Right knee dislocation HISTORY OF PRESENT ILLNESS: The patient is an 84-year-old female that has a history of bilateral total knee arthroplasties more than 30 years ago. The patient has sustained in a fall several days ago landing backwards and complaining of pain to the lower back as well as her right knee. The patient reports that she came to the emergency room later on at [facility] because inability to extend her knee and severe pain. The patient reports that previously she was walking well with the use of a walker with a any problems. The patient was admitted to that hospital was evaluated by 3-0 orthopedist that diagnostic with the posterior knee dislocation and they agreed that the patient needed a revision arthroplasty but they felt no qualified to do it. They requested from us to admit the patient and Dr. Jackson agreed to do that after consulting with me in reference to the ability to take care of the problem. Apparently and not known to me until this morning when I saw the patient she had already had a reduction and immobilization with a knee immobilizer which the patient has a the time of this evaluation. PAST MEDICAL HISTORY: Patient has a history of atrial fibrillation, secondhand smoking Chronic obstructive pulmonary disease. Morbid obesity. History of anxiety and depression. Previous history of sleep apnea that resolved after g astric bypass. Gout. Previous history of diabetes that reserve of the gastric bypass. Hypertension. Neurogenic claudication. Spondylolisthesis PAST SURGICAL HISTORY: Minimally invasive spine lumbar decompression. Abdominal hysterectomy with right salpingo-oophorectomy. Cholecystectomy. D&C x2. Gastric bypass. Total knee arthroplasty lab. Total knee arthroplasty right ALLERGIES: Reports of the Monica reaction to codeine (hallucinations) SOCIAL HISTORY: Denies use of tobacco or alcohol. Retired. FAMILY HISTORY: Coronary artery disease, Alzheimer's, diabetes mellitus, hypertension, malignant hyperthermia, breast cancer, female genital organ cancer REVIEW OF SYSTEMS: Back pain, right knee pain. PHYSICAL EXAMINATION: Awake, alert and oriented and in no distress at this time, lying recumbent in bed now just as with the knee immobilizer in the right lower extremity. The patient is morbidly obese. Her respiratory status shows no distress with normal ventilatory effort. Vital signs stable. She has a lot of the bruises in her frail skin. Musculoskeletal assessment shows that the patient has a left lower extremity with a surgical scar in the anterior aspect of the joint where she has a total knee arthroplasty. She has been extension and flexion but she has a very obvious sagging posteriorly consistent with posterior cruciate ligament deficiency. In the right lower extremity the patient has a knee immobilizer which is removed. The joint reveals close to an anterior surgical scar where she had a right total knee arthroplasty. The knee has no effusion but there is mild edema. There is no erythema. The patient has ability to flex the knee with the pain and once reaches 90 translates posteriorly significant but did not completely dislocate. The knee the reduced after the patient relaxes and gentle traction is applied to the leg. Distal neurovascular exam is normal and there is no distal edema. RADIOLOGIC STUDIES: I have reviewed x-rays taken at [facility] including an AP and lateral the right knee in with a showing that the patient has a very old model total knee arthroplasty in the longer existent and in the lateral view of the SOB that the patient has very significant subluxation of the joint, near dislocation. There is no associated fractures. There is a q uestionable bone osteolysis of the most distal part of the femur next to the distal portion of the femoral component. The tibial component seems to be in adequate position and there are no signs of osteolysis. ASSESSMENT: Right knee posterior instability secondary to posterior cruciate ligament complete disruption with severe subluxation, near dislocation PLAN: I have discussed with the patient and her daughter the status of her knee and it is my opinion that the patient needs to have a revision of the knee to a posterior stabilized component. Unfortunately the prosthesis she has a longer available for which reason we will have to with a complete revision of the tibia and femoral component. I discussed the case with Dr. Jackson and he has stated that the patient apparently has been cleared already and we will plan to keep the patient in the hospital for pain management of the back and schedule her for surgery on Tuesday for planned procedure. The patient is anemic and we will start her on iron supplementation and we will also await further cardiac evaluation. The patient understands the plan and agrees. The patient is on Lovenox and I will start the aspirin and I am going to ask Physical therapy to evaluate the patient to get out of bed with the immobilizer and attempt to do some weight-bearing ambulation with the use of a walker. The patient is to keep immobilized in place except for LAEKSANDR Dotson MD Mar 16, 2025 10:14
[2025-03-16] MEDS: FERROUS FUMARATE 324 MG TABLET PO ONE (12:03)
--- NOTE | 2025-03-16 16:17 | CONS ---
[facility] Cardiology Consultation Note CARDIOLOGY CONSULTATION MARCH 16, [address] occupational therapist Dr. Boo Chief complaint: This is an 84-year-old female whom we are asked to evaluate preoperatively prior to right total knee arthroplasty. History of present illness: The patient had a fall last week without loss of consciousness. This occurred on Tuesday but on Tuesday she began experiencing pain. She has a history of bilateral knee replacements and was found to have dislocation of the right knee and is pending surgery. Past medical history: The patient has a history of paroxysmal atrial fibrillation. She underwent an unsuccessful ablation in 2020. A few days after her ablation procedure she had an embolic stroke. She was treated with Xarelto medication up until recently when she developed severe bruising and hematoma of the hand and lower arm. At that time her anticoagulation was held and the patient was in sinus rhythm loop recorder showed no recent episodes of atrial fibrillation. She has a loop recorder in place and had the recorder recently replaced about three weeks ago. The new loop recorder demonstrated recurrent atrial fibrillation. She is currently in atrial fibrillation with a controlled ventricular response. The patient also has a history of iron- deficiency anemia and received some recent iron infusions. Recurrent hemoglobin 10.9 with actually microcytic indices with an MCV of 109. Platelet count is 151956. Denies any hemoptysis hematemesis or melena. She has had no epistaxis. He has no history of diabetes or dyslipidemia. Review of systems: No recent syncope PND orthopnea or pedal edema. She denies chest pain. No fevers sweats or chills. No hemoptysis hematemesis or melena. Allergies: Codeine causes hallucinations Social history: She is a nonsmoker nondrinker Medications: Here in the hospital she is receiving aspirin and azithromycin buspirone diltiazem 60 mg q.8 hours dronedarone 400 mg b.i.d. Lovenox 30 mg alma y furosemide 40 mg every 48 hours hydromorphone for pain relief metoprolol tartrate pantoprazole potassium protocol. Surgical history: She is status post a previous cholecystectomy, AFib ablation and back surgery as well as bilateral total knee replacements Physical exam: Blood pressure running 110 systolic heart rate is ranging between 101 120 per minute. Pulses irregular. There was no elevation of the jugular venous pressure no bruits S1 normal S2 physiologically split. 1/6 holosystolic apical murmur is present no diastolic component appreciable. Abdomen is soft. Extremities show no edema. She is alert and oriented. Laboratory studies: As noted hemoglobin was 10.9 with microcytic indices. Platelet count is adequate. Potassium 4.3 BUN 30 creatinine 1.6 estimated GFR of 32. Assessment: 1. Dislocation of right knee prosthesis fall without loss consciousness being scheduled for right total knee arthroplasty 2. History of paroxysmal atrial fibrillation with Persistent atrial fibrillation initiated about three weeks ago with rates between 110 and 120 per minute on diltiazem 60 mg q.8 hours and add Multaq 400 mg b.i.d. 3. 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 Recent hand and lower extremity hematoma on Xarelto 5. Acute on Chronic kidney disease stage IIIB creatinine down from 2.85 March 10, 2025 Plan: This point we will increase the diltiazem to 30 mg q.6 hours for better rate control. Because of a history of embolic stroke and no history of bleeding I would recommend initiation of heparin protocol which can be [id number] hours before surgery. In addition we will obtain a12 lead EKG preoperatively. We will repeat CBC on her heparin medication. There was no absolute contraindication to the surgery as planned. She is in an intermediate risk patient for an intermediate risk procedure. Postoperatively her short-acting diltiazem can be switched over to long-acting diltiazem or a beta fatmata. Postoperatively we can also have a discussion with her about trying an alternative anticoagulation such as Eliquis 2.5 mg b.i.d.. BOYD NORIEGA MD Mar 16, 2025 16:17
[2025-03-16 17:06] LABS: IMMATURE GRANULOCYTE ABSOLUTE 0.08 K/uL (0-1); NUCLEATED RED BLOOD CELLS 0.0 % (0.0-0.19); PLATELET COUNT (AUTO) 203 K/uL (130-400); RED BLOOD CELL COUNT(AUTO) 3.13 MIL/uL (4.00-5.50); RED CELL DISTRIBUTION WIDTH 14.5 % (11.0-15.5); WHITE BLOOD COUNT (AUTO) 14.6 K/uL (4.8-10.8)
--- NOTE | 2025-03-16 17:54 | NUR ---
Discharge Planning: Patient states she lives with her spouse. Contact number is for her daughter Alicia Howell at . PC is Dr. Darryl Jackson and preferred pharmacy is [facility]. No home health but has provider services 33 hours weekly. DME at home is a walker and a w/c. DCP is for home. No d/c needs at this time. Addendum: 03/16/25 at 1758 by REED MANZO RN CM Amended: Links added.
[2025-03-16] MEDS: VENLAFAXINE 75 MG PO SCH (21:00)
[2025-03-17] VITALS (12 sets, daily range): BP systolic 89–110; BP diastolic 59–72; PULSE 89–117; RESP 18–20; TEMP 98–98.3; O2SAT 93–99
[2025-03-17] MEDS ORDERED: ASPI-1005 PO (01:35)
[2025-03-17] MEDS ORDERED: HYDR-4068 PO (01:35)
[2025-03-17] MEDS ORDERED: DRON400T7 PO (01:35)
[2025-03-17] MEDS ORDERED: METO25TA6 PO (01:35)
[2025-03-17] MEDS ORDERED: IRON1CAP30 PO (01:35)
[2025-03-17 05:36] LABS: IMMATURE GRANULOCYTE ABSOLUTE 0.06 K/uL (0-1); NUCLEATED RED BLOOD CELLS 0.0 % (0.0-0.19); PLATELET COUNT (AUTO) 168 K/uL (130-400); RED BLOOD CELL COUNT(AUTO) 2.83 MIL/uL (4.00-5.50); RED CELL DISTRIBUTION WIDTH 14.3 % (11.0-15.5); WHITE BLOOD COUNT (AUTO) 13.7 K/uL (4.8-10.8)
[2025-03-17 05:51] LABS: ASPARTATE AMINOTRANSFERASE 11.0 U/L (10-37); CREATININE 1.5 mg/dL (0.5-1.0); GLOMERULAR FILTR. RATE CALC 34.0 mL/min (>90); GLUCOSE,RANDOM 111.0 mg/dL (70-105); SODIUM SERUM 137.0 mmol/L (136-145); TOTAL PROTEIN, SERUM 5.6 g/dL (6.0-8.3); UREA NITROGEN, BLOOD 29.0 mg/dL (7-18)
--- NOTE | 2025-03-17 08:16 | HP ---
HISTORY OF PRESENT ILLNESS: The patient was transferred from [facility] for assessment and treatment of right prosthetic knee dislocation post fall. The patient was evaluated by Dr. Armstrong, Dr. Moura, and Dr. Milian at [facility] and they referred the patient to a higher level of care facility with an orthopedic that can perform surgery on her knee. The patient had sustained a recent fall from ground level with trauma of her right knee and a dislocation she was evaluated initially in [facility] management with analgesics and immobilizer. After lengthy process of consulting different orthopedics, we presented the case to Dr. Brown who agreed to accept the patient and manage the dislocation of the left knee. ALLERGIES: THE PATIENT IS ALLERGIC TO CODEINE. MEDICATIONS: As indicated in the chart. 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 The patient was on Xarelto and she developed warfarin ischemia like process that was resolved with replacement of protein C and S. After that, Dr. Diaz, Hematology, has recommended the patient to be off oral anticoagulation. COPD, bronchiectasis. Chronic back pain. PAST SURGICAL HISTORY: Status post right total knee arthroplasty, status post gastric bypass in remote past. PHYSICAL EXAMINATION: GENERAL: She is currently awake, alert, oriented to person, time, and place. VITAL SIGNS: Blood pressure 109/16, pulse 107, respiratory rate 14. HEENT: Normocephalic, atraumatic. LUNGS: Clear to auscultation. HEART: S1, S2 are distant. ABDOMEN: Prominent, soft, nontender. EXTREMITIES: No clubbing or cyanosis. Right knee with an immobilizer in place. LABORATORY DATA: WBC 8.6, hemoglobin 10.9, platelets 187. Sodium 141, potassium 4.3, BUN 30, creatinine 1.6, albumin 2.6, calcium 8.1. ASSESSMENT AND PLAN: * Status post fall from ground level with right knee trauma. * Status post right knee trauma with dislocation of the femur, the patient has been evaluated by Dr. Lane and apparently the dislocation had already been reduced and the patient is scheduled to have surgery with removal of the hardware on next 03/19/2025. * Atrial fibrillation, rate controlled at this time. Continue recommendations by Cardiology. Consultation for continued management will be requested. * Type 2 diabetes. Continue to monitor. * Hypertension, controlled. * Dyslipidemia. Continue current treatment. * Chronic obstructive pulmonary disease. Continue bronchodilators. * Follow up in a.m. with labs. DOS: 03/16/2025 TID: [id number] RECEIPT: [id number] MTDD
--- NOTE | 2025-03-17 09:55 | PN ---
[facility] Cardiology Progress Note CARDIOLOGY PROGRESS NOTE MARCH 17, 2025 PROBLEMS: 1. Dislocation of right knee prosthesis fall without loss consciousness being scheduled for right total knee arthroplasty 2. History of paroxysmal atrial fibrillation with Persistent atrial fibrillation initiated about three weeks ago with rates between 110 and 120 per minute on diltiazem 60 mg q.8 hours and add Multaq 400 mg b.i.d. 3. 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 Recent hand and lower extremity hematoma on Xarelto 5. Acute on Chronic kidney disease stage IIIB creatinine down from 2.85 March 10, 2025 Blood pressure is 106/70 heart rate is ranging between 106 and 108 per minute. The patient is afebrile. White count is 13.7 Hemoglobin 9.8 Again microcytic indices are . Platelet count is 437386. Potassium 4.1 BUN21 creatinine 1.5 Estimated GFR of 34. The patient continues on diltiazem Multaq furosemide heparin protocol pantoprazole. Diltiazem yesterday was increased from 30 mg q.8 hours to 30 mg q.6 hours and heart rate at this point is remaining below 110 per minute. Undergo for AFib rate control. Continue on heparin for embolic stroke prevention given her prior history. This can be discontinued 12-24 hours prior to surgery. As noted she had developed a hematoma of her right hand and had not had atrial fibrillation on her event monitoring quite some time and Xarelto was discontinued. After replacement of her loop recorder she was then documented to have recurrent atrial fibrillation and we will probably require long-term a nticoagulation after surgery. I would suggest trying different agent such as Eliquis 2.5 mg b.i.d. I will schedule for a 2D echocardiogram to assess ejection fraction preoperatively. Twelve lead EKG was ordered as part of preoperative evaluation and is pending. I will review this when complete. BOYD NORIEGA MD Mar 17, 2025 09:55
[2025-03-17 12:12] LABS: GLUCOSE, URINE (UA) NEGATIVE (NEGATIVE); LEUKOCYTE ESTERASE ,URINE 75 Leu/uL (NEGATIVE); NITRATE,URINE NEGATIVE (NEGATIVE); OCCULT BLOOD,URINE NEGATIVE (NEGATIVE)
[2025-03-17 12:18] LABS: ADD UA MICROSCOPIC YES; APPEARANCE,URINE HAZY (CLEAR)
[2025-03-17 12:20] LABS: SQUAMOUS EPITHELIAL CELL,UR RARE /HPF (0-2)
--- NOTE | 2025-03-17 13:24 | HMCSR ---
APPROVED REPORT EXAM: Two-dimensional and M-mode echocardiogram with Doppler and color Doppler. INDICATION ICD: Atrial Fibrillation Pre-Op 2D Dimensions RVDd4.7 cmLVEF(%)54.0 (>50%)LVED Vol(simp.)73.0 mL IVSd0.8 (0.7-1.1cm)FS(%)28 %LVES Vol(simp.)48.0 mL LVDd5.0 (3.8-5.6cm)LA (2D)5.7 (1.6-4.0cm)LVEF(%, simp.)35 % PWd0.9 (0.7-1.1cm)Ao Root(2D)3.0 (2.0-3.7cm)LA ESV INDEX (BP)94.87 mL/m2 LVDs3.6 (2.5-4.0cm)LVOT diam2.1 (1.8-2.4cm) IVC diam2.6 cm Deformation Strain Apical 4-5.0 % Apical 2-7.3 % Apical 3-9.8 % Global Strain-7.4 % Aortic Valve AoV Vmax1.4 m/Balta Peak GR8.3 mmHgLVOT Vmax0.8 m/s AoV VTI0.2 mAo Mean GR5.6 mmHgLVOT VTI0.14 m VERONICA (VMAX)2.03 cm2Al P1/2T300 msAVA (VTI) 2.2 cm2 Mitral Valve MV E Hugx401.5 cm/sDECEL Inpg097 ms P 1/2 T65 ms MVA (PHT)3.4 cm2 TDI E/E' Alavrr84.5E/E' Eklgdtg61.4 Medial E' Peak V5.82 cm/sLateral E' Peak V8.01 cm/s Pulmonary Valve PV Vmax0.9 m/sPV VTI0.13 mPV Mean GR1.9 mmHg PV Peak GR3.2 mmHg Tricuspid Valve TR Vmax2.7 m/sRAP (EST) 15 aiNfHCKL18.4 mmHg TR Peak GR36.4 mmHg Left Ventricle The left ventricle is normal size. Septal hypokinesis. Global strain of -7%. There is normal left jennifer tricular wall thickness. LVEF is 35-40%. The LV diastolic function was unable to be assessed due to a trial arrhythmia. Right Ventricle The right ventricle is mildly dilated. Right ventricular systolic function is moderately reduced. Atria The left atrium is severely dilated. Atrial septum is bowed toward the right, consistent with elevate d left atrial pressures. The right atrium is severely dilated. Aortic Valve The aortic valve is normal in structure. Mild aortic regurgitation. There is no aortic valvular steno sis. Mitral Valve Mitral valve leaflets are calcified but open well. Mitral regurgitation is mild to moderate. There is no mitral valve stenosis. Tricuspid Valve The tricuspid valve is normal in structure. There is moderate tricuspid valve regurgitation noted, RV SP 52mmHg. Pulmonic Valve The pulmonary valve is normal in structure. There is no pulmonic valvular regurgitation. Great Vessels The aortic root is normal in size. IVC is dilated and collapses <50% with inspiration. Pericardium Trace posterior pericardial effusion. There are no echocardiographic indications for cardiac tamponad e. Conclusion LVEF is 35-40%. The left atrium is severely dilated. The right atrium is severely dilated. Atrial septum is bowed toward the right, consistent with elevated left atrial pressures. Mild aortic regurgitation. Mitral regurgitation is mild to moderate. There is moderate tricuspid valve regurgitation noted, RVSP 52mmHg. Trace posterior pericardial effusion. There are no echocardiographic indications for cardiac tamponade.
[2025-03-17] MEDS: SODIUM CHLORIDE 3% FOR INHALATION 4 ML/AMP VIAL.NEB IH ONE ×3 (13:39→23:29)
[2025-03-17] MEDS: LACTULOSE 20 GM/30 ML UDCUP PO ONE (20:56)
[2025-03-18] VITALS (12 sets, daily range): BP systolic 91–116; BP diastolic 62–87; PULSE 90–125; RESP 18–20; TEMP 98–98.5; O2SAT 94–97
--- NOTE | 2025-03-18 04:50 | PN ---
SUBJECTIVE: The patient is comfortable and afebrile. No fever or chills. No chest pain. No nausea or vomiting. OBJECTIVE: GENERAL: The patient is currently awake, alert, and oriented to person, time, and place. VITAL SIGNS: Blood pressure is 106/72, pulse 108, and respiratory rate is 18. HEENT: She is normocephalic and atraumatic. [place] and moist oral mucosa. NECK: Supple. No jugular venous dilation. No carotid bruit. No goiter. LUNGS: Decreased breath sounds bilaterally with productive cough bilaterally. No crepitance. HEART: S1 and S2 are distant. ABDOMEN: Prominence, soft, nontender. EXTREMITIES: No clubbing or cyanosis. The right knee is with an immobilizer in place. LABORATORY DATA: WBC count is 13.7, hemoglobin 9.8, and platelets 168. Sodium 137, potassium 4.1, BUN 19, creatinine 1.5, AST 11, ALT 13, and albumin 2.6. ASSESSMENT AND PLAN: * Status post fall from ground level. Continue supportive care. * Right knee prosthesis subluxation. The patient is scheduled to have removal of the hardware in 2 days. Follow up in a.m. with results of tests. * Atrial fibrillation, rate controlled. 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 * Leukocytosis. Workup will be sent. The patient will be started on antibiotics if any evidence of infection. Chest x-ray and urinalysis will be sent. Follow up in a.m. with results. DOS: 03/17/2025 TID: [id number] RECEIPT: [id number] [facility]
[2025-03-18 05:10] LABS: IMMATURE GRANULOCYTE ABSOLUTE 0.05 K/uL (0-1); NUCLEATED RED BLOOD CELLS 0.0 % (0.0-0.19); PLATELET COUNT (AUTO) 168 K/uL (130-400); RED BLOOD CELL COUNT(AUTO) 2.69 MIL/uL (4.00-5.50); RED CELL DISTRIBUTION WIDTH 14.2 % (11.0-15.5); WHITE BLOOD COUNT (AUTO) 10.6 K/uL (4.8-10.8)
[2025-03-18 05:34] LABS: ASPARTATE AMINOTRANSFERASE 11.0 U/L (10-37); CREATININE 1.4 mg/dL (0.5-1.0); GLOMERULAR FILTR. RATE CALC 37.0 mL/min (>90); GLUCOSE,RANDOM 116.0 mg/dL (70-105); SODIUM SERUM 136.0 mmol/L (136-145); TOTAL PROTEIN, SERUM 5.8 g/dL (6.0-8.3); UREA NITROGEN, BLOOD 26.0 mg/dL (7-18)
--- NOTE | 2025-03-18 07:06 | HMCIMG ---
EXAM: CT Chest Without Contrast CLINICAL HISTORY: Right lower lobe pneumonia. TECHNIQUE: Thin collimated axial CT images of the chest were obtained with sagittal and coronal reformatted images also submitted. CT scan done according to ALARA (As Low as Reasonably Achievable). CONTRAST USED: None. COMPARISON: None provided. FINDINGS: Mild atelectasis in the lingula and both lower lobes. No collapse or consolidation. No pulmonary nodules. No pleural effusions. Mild pericardial effusion. Cardiomegaly. Calcification of the coronary arteries with atherosclerotic changes in the aorta. The upper thoracic esophagus is dilated and fluid filled. No axillary, supraclavicular, or mediastinal lymphadenopathy. No focal thyroid abnormality. There is elevation of the right hemidiaphragm. Limited views of the upper abdomen demonstrate left renal calculus (4.5mm). Post-operative changes in the stomach with moderate hiatus hernia. Hypodense lesion in the segment VII of liver measuring 1.6 x 1.6cm. The bones under view show degenerative spondylotic changes in the spine with reduced bone density. Mild dextroscoliosis and compression of few dorsal vertebrae. IMPRESSION: 1. Mild atelectasis in the lingula and both lower lobes. No pulmonary infiltrates or pleural effusions. 2. Cardimegaly with pericardial effusion. Further evaluation with echocardiography advised. 3. Coronary arterial disease and atherosclerosis. 4. Moderate hiatus hernia. 5. Left renal calculus. 6. Hypodense lesion in the right lobe liver likely benign. However, further evaluation with contrast study is advised for better characterization. 7. Elevation of the right hemidiaphragm. Suggested clinical correlation and CECT abdomen for further evaluation /Kaylee
[2025-03-18] MEDS: AZITHROMYCIN 250 MG TABLET PO SCH (08:51)
--- NOTE | 2025-03-18 09:35 | NUR ---
RAD NUCLEAR MEDICINE EXAM CURRENTLY ON HOLD, PATIENT NEEDS A NEW WORKING IV, NURSE ANUEL MADE AWARE AND WILL CALL BACK TO LET ME KNOW WHEN PATIENT IS READY.
[2025-03-18] MEDS: REGADENOSON 0.4 MG/5 ML PF SYG IVP ONE (09:49)
--- NOTE | 2025-03-18 10:33 | NUR ---
RAD NUCLEAR MEDICINE, WENT UP TO CHECK ON PATIENT IV STATUS, NURSES HAVE ATTEMPTED BUT WITHOUT ANY SUCCESS, THEY WILL CALL NUCLEAR MEDICINE DEPARTMENT ONCE IT IS GOOD TO GO. CARDIOLITE STRESS TEST ON HOLD.
--- NOTE | 2025-03-18 13:37 | CCATH ---
PROBLEM LIST: 1. Mechanical fall without loss of consciousness with dislocation of right knee prosthesis. 2. History of paroxysmal atrial fibrillation with persistent atrial fibrillation on this admission. 3. History of CVA, likely cardioembolic following AFib ablation attempt in 2020 while off anticoagulation. 4. History of right hand and left lower extremity hematoma, on Xarelto therapy, currently on hold. 5. Acute on chronic kidney disease, stage IIIB with creatinine of 2.85 in February of this year. 6. Cardiomyopathy with EF of 35-40% with severely dilated left atrium and right atrium and increased left atrial pressure with mild aortic regurgitation, mild to moderate mitral regurgitation, moderate tricuspid regurgitation with moderate pulmonary hypertension and trace posterior pericardial effusion on echocardiography on this admission. 7. Octogenarian. 8. History of morbid obesity, status post remote gastric bypass surgery. 9. 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 10. COPD/bronchiectasis. 11. Chronic lumbosacral spine disease. This patient has been hospitalized predominantly because of fall. She is pending a surgical procedure for her displaced prosthesis. The patient has been hemodynamically stable with marginal pressures in the 90-115 systolic range. She has been afebrile. Her heart rate has been in the 100-125 per minute range. She has been saturating at 96% on room air. This patient has been maintained on furosemide, azithromycin, Maxipime, Mucomyst, Atrovent, diltiazem at 30 q. 6h, heparin per protocol, multivitamins, pantoprazole, lactulose, baclofen, melatonin, BuSpar, senna, Multaq, and additional p.r.n. medications. The patient has persisted in atrial fibrillation; however, her rate is better controlled. Her electrocardiogram has revealed diffuse, nonspecific ST and T-wave changes with minor conduction system delay. Given the patient's cardiomyopathy, the etiology of that has to be addressed. The patient has been scheduled to undergo a surgical procedure tomorrow; however, given her EF in the 35-40% range, I think her surgical risk will be at least moderately increased. I have recommended preoperative risk stratification with Lexiscan Cardiolite. She had had a nuclear imaging scan in 2021, at which time she had normal perfusion. I have also recommended discontinuation of diltiazem and initiating therapy with metoprolol for rate control given the LV dysfunction. We will assess the Lexiscan Cardiolite results and make additional recommendations after that. TID: [id number] RECEIPT: [id number]
--- NOTE | 2025-03-18 14:00 | NUR ---
PATIENT GOING DOWN FOR STRESS TEST PENDING KNEE SURGERY BY DR GARCIA TOMORROW. Addendum: 03/18/25 at 1530 by DAJUAN BRADLEY PT Amended: Links added.
--- NOTE | 2025-03-18 17:17 | PN ---
I have visited with the patient today in reference to the surgery that I have plan to do tomorrow if she is cardiac cleared. There is a Lexiscan pending. I have asked the patient as well as her family if any questions they has been reference of the surgery and they all answered negatively. Again the plan will be to take the patient tomorrow for revision knee arthroplasty. The patient has been already scheduled and the consent obtained. I have ordered also to stop the heparin drip at midnight as per the recommendations of Dr. Momin (12 hours before surgery), which will be restarted again if the patient does not get cleared for the surgery. Vitals/Labs Vital Signs Date Time Temp Pulse Resp B/P (MAP) Pulse Ox O2 Delivery O2 Flow Rate FiO2 03/18/25 12:00 98.4 98 19 104/70 96 Room Air 21 03/17/25 20:00 0 Laboratory Tests 03/18/25 04:54 Medications Current Medications Home Med 2 INHALATIONS BID BID IH Last administered on 03/17/25at 20:41; Start 03/16/25 at 09:00; Stop 04/15/25 at 08:59 Lidocaine 1 each DAILY TP Last administered on 03/18/25at 08:57; Start 03/16/25 at 09:00; Stop 04/15/25 at 08:59 Azithromycin 250 mg QMOFR PO; Start 03/18/25 at 09:00; Stop 03/28/25 at 08:59 Acetaminophen 650 mg Q6H PRN PO; Start 03/15/25 at 21:00; Stop 04/14/25 at 20:59 Acetaminophen/ Hydrocodone Bitart 1 tab Q6H PRN PO Last administered on 03/16/25at 21:00; Start 03/15/25 at 21:00; Stop 03/20/25 at 20:59 Aspirin 81 mg DAILY PO Last administered on 03/16/25at 09:35; Start 03/16/25 at 09:00; Stop 03/16/25 at 16:20; Status DC Hydromorphone HCl 0.5 mg Q4H PRN IVP Last administered on 03/18/25at 13:17; Start 03/15/25 at 21:00; Stop 03/20/25 at 20:59 Enoxaparin Sodium 30 mg DAILY SQ Last administered on 03/16/25at 09:39; Start 03/16/25 at 09:00; Stop 03/16/25 at 16:24; Status DC Metoprolol Tartrate 5 mg Q5M PRN IV Last administered on 03/18/25at 00:23; Start 03/15/25 at 21:00 Diltiazem HCl 30 mg Q8H5 PO Last administered on 03/16/25at 14:08; Start 03/15/25 at 21:00; Stop 03/16/25 at 16:20; Status DC Furosemide 40 mg Q48H PO; Start 03/18/25 at 09:00; Stop 04/17/25 at 08:59 Dronedarone 400 mg BID PO Last administered on 03/17/25at 20:42; Start 03/15/25 at 21:00; Stop 04/14/25 at 20:59 Ipratropium [place] 0.5 MG BID IH Last administered on 03/17/25at 06:30; Start 03/15/25 at 21:00; Stop 03/17/25 at 11:07; Status DC Lactulose 20 gm DAILY PO; Start 03/16/25 at 09:00; Stop 04/15/25 at 08:59 Pantoprazole Sodium 40 mg DAILY PO Last administered on 03/17/25at 08:19; Start 03/16/25 at 09:00; Stop 04/15/25 at 08:59 Sennosides 1 tab HS PO Last administered on 03/17/25at 20:42; Start 03/15/25 at 21:00; Stop 04/14/25 at 20:59 Buspirone HCl 10 mg HS PO Last administered on 03/17/25at 20:41; Start 03/15/25 at 21:00; Stop 04/14/25 at 20:59 Melatonin 10 mg HS PO Last administered on 03/17/25at 20:42; Start 03/15/25 at 21:00; Stop 04/14/25 at 20:59 Home Med HS PO Last administered on 03/15/25at 22:59; Start 03/16/25 at 21:00; Stop 03/16/25 at 03:20; Status DC Home Med BID NASAL; Start 03/16/25 at 09:00; Stop 04/15/25 at 08:59 Baclofen 20 mg HS PRN PO Last administered on 03/17/25at 20:48; Start 03/15/25 at 21:00; Stop 04/14/25 at 20:59 Vitamin B Complex 1,000 mcg DAILY PO; Start 03/16/25 at 09:00; Stop 03/17/25 at 02:33; Status DC Dextrose 50 ml AD PRN IV; Start 03/15/25 at 21:00; Stop 04/14/25 at 20:59 Glucagon 1 mg AD PRN IM; Start 03/15/25 at 21:00; Stop 04/14/25 at 20:59 Magnesium Sulfate 50 ml @ 0 mls/hr PROTOCOL PRN IV; Start 03/15/25 at 21:00; Stop 04/14/25 at 20:59 Potassium Chloride 100 ml @ 100 mls/hr AD PRN IV; Start 03/15/25 at 21:00; Stop 04/14/25 at 20:59 Potassium Chloride 20 meq AD PRN PO; Start 03/15/25 at 21:00; Stop 04/14/25 at 20:59 Potassium Chloride 20 meq AD PRN PO; Start 03/15/25 at 21:00; Stop 04/14/25 at 20:59 Potassium Chloride 100 ml @ 50 mls/hr AD PRN IV; Start 03/15/25 at 21:00; Stop 03/16/25 at 06:38; Status DC Metoprolol Tartrate 25 mg TID PO Last administered on 03/15/25at 22:20; Start 03/15/25 at 21:00; Stop 03/16/25 at 06:38; Status DC Multivitamins Therapeutic 1 tab DAILY PO Last administered on 03/17/25at 08:18; Start 03/16/25 at 09:00; Stop 04/15/25 at 08:59 Ondansetron HCl 4 mg Q4HPRN PRN IVP; Start 03/15/25 at 21:00; Stop 04/14/25 at 20:59 Home Med BIDMEALS PO Last administered on 03/17/25at 17:10; Start 03/16/25 at 21:00; Stop 04/15/25 at 20:59 Ferrous Fumarate 324 mg ONCE ONCE PO Last administered on 03/16/25at 12:03; Start 03/16/25 at 10:00; Stop 03/16/25 at 10:01; Status DC Diltiazem HCl 30 mg Q6H PO Last administered on 03/18/25at 01:57; Start 03/16/25 at 20:00; Stop 03/18/25 at 07:08; Status DC Heparin Sodium (Porcine) *calculation based on ACTUAL B... AD PRN IV Last administered on 03/16/25at 18:25; Start 03/16/25 at 17:30; Stop 04/15/25 at 17:29 Heparin Sodium/ Dextrose 250 ml @ 0 mls/hr Q6H IV Last administered on 03/18/25at 11:36; Start 03/16/25 at 17:30; Stop 04/15/25 at 17:29 Home Med DAILY PO Last administered on 03/17/25at 08:19; Start 03/17/25 at 09:00; Stop 04/16/25 at 08:59 Acetylcysteine 20 mg Q8H5 IH; Start 03/17/25 at 13:00; Stop 03/17/25 at 10:57; Status DC Ipratropium [place] 0.5 MG Q8H5 IH Last administered on 03/18/25at 06:43; Start 03/17/25 at 13:00; Stop 04/16/25 at 12:59 Sodium Chloride 4 ml STK-MED ONCE IH Last administered on 03/17/25at 13:39; Start 03/17/25 at 13:25; Stop 03/17/25 at 13:25; Status DC Acetylcysteine 200 mg Q8H5 IH Last administered on 03/18/25at 06:43; Start 03/17/25 at 14:00; Stop 04/16/25 at 13:59 Cefepime HCl 2 gm Q24H IVPB Last administered on 03/17/25at 17:06; Start 03/17/25 at 15:30; Stop 03/27/25 at 15:29 Sodium Chloride 4 ml STK-MED ONCE IH Last administered on 03/17/25at 18:26; Start 03/17/25 at 17:57; Stop 03/17/25 at 17:57; Status DC Lactulose 20 gm ONCE ONCE PO Last administered on 03/17/25at 20:56; Start 03/17/25 at 20:55; Stop 03/17/25 at 20:56; Status DC Sodium Chloride 4 ml STK-MED ONCE IH Last administered on 03/17/25at 23:29; Start 03/17/25 at 23:05; Stop 03/17/25 at 23:05; Status DC Metoprolol Tartrate 25 mg TID PO; Start 03/18/25 at 09:00; Stop 04/17/25 at 08:59 Regadenoson 0.4 mg STK-MED ONCE IVP Last administered on 03/18/25at 09:49; Start 03/18/25 at 09:32; Stop 03/18/25 at 09:32; Status DC ALEKSANDR GARCIA MD Mar 18, 2025 17:17
[2025-03-19] VITALS (7 sets, daily range): BP systolic 98–110; BP diastolic 52–72; PULSE 94–109; RESP 18–20; TEMP 97.2–98.4; O2SAT 96–97
--- NOTE | 2025-03-19 06:59 | HMCIMG ---
EXAM: CR Chest, single view CLINICAL HISTORY: Cough. COMPARISON: None. FINDINGS: Moderate cardiomegaly with bilateral pulmonary congestion. Minimal right-sided pleural effusion with adjacent lung atelectasis. No evidence of pneumothorax. No acute osseous abnormality. Degenerative changes in the mid and lower thoracic spine and bilateral acromioclavicular joints. Atherosclerotic calcification of the aortic arch. IMPRESSION: Moderate cardiomegaly with bilateral pulmonary congestion. Minimal right-sided pleural effusion with adjacent lung atelectasis. No evidence of pneumothorax. /[place]
--- NOTE | 2025-03-19 07:09 | HMCSR ---
APPROVED REPORT Height: 5 ft 10in Weight: 180 lbs TEST INDICATIONS AFIB & RVR The imaging protocol used to acquire images was Rest Tc-99m/stress Tc-99m 1 day Consent: The procedure was explained and understood by the patient. Informerd consent was witnessed by Marylin Turcios RN First, low dose rest was performed then high dose stress. RESTING DATA: The resting ekg shows: Atrial Fibrillation Rest SPECT myocardial perfusion imaging was performed in supine position minutes following the intravenous injection of 10 mCi of Tc-99 Sestamibi. Time of rest injection: 12:08: Date: 03/18/2025 Time of rest imagin:30: Date: 03/18/2025 PHARMACOLOGIC STRESS: Pharmacologic stress test was performed by injecting regadenoson 0.4 mg IV push followed by the intravenous injection of 27.5 mCi of Tc-99 Sestamibi. Time of stress injection: 15:03: Date: 03/18/2025 Time of stress imagin:30: Date: 03/18/2025 The images were gated to evaluate regional wall motion and calculate left ventricular ejection fraction. STRESS DETAILS Reason for Termination: Infusion complete Stress Symptoms: Dyspnea Max HR Achieved: 136 bpm % of APMHR Achieved: 117 Max Blood Pressure: 156/62 mmHg Stress ECG: Atrial Fibrillation LEFT VENTRICLE Size: The left ventricular size is normal. Systolic Function:The left ventricular systolic function is borderline decreased. Wall Motion: Inferior hypokinesis. Apical akinesis. The left ventricular ejection fraction was calculated to be 63%.TID = . LV PERFUSION Fixed infero-apical thinning defect. No reversible ischemia identified. Conclusion The left ventricular size is normal. The left ventricular systolic function is borderline decreased. Inferior hypokinesis. Apical akinesis. Fixed infero-apical thinning defect. No reversible ischemia identified. The left ventricular ejection fraction was calculated to be 63%.
[2025-03-19 08:09] LABS: NUCLEATED RED BLOOD CELLS 0.0 % (0.0-0.19); PLATELET COUNT (AUTO) 195.0 K/uL (130-400); RED BLOOD CELL COUNT(AUTO) 2.53 MIL/uL (4.00-5.50); RED CELL DISTRIBUTION WIDTH 13.8 % (11.0-15.5); WHITE BLOOD COUNT (AUTO) 10.3 K/uL (4.8-10.8)
[2025-03-19 08:35] LABS: ASPARTATE AMINOTRANSFERASE 12.0 U/L (10-37); CREATININE 1.4 mg/dL (0.5-1.0); GLOMERULAR FILTR. RATE CALC 37.0 mL/min (>90); GLUCOSE,RANDOM 104.0 mg/dL (70-105); SODIUM SERUM 135.0 mmol/L (136-145); TOTAL PROTEIN, SERUM 5.8 g/dL (6.0-8.3); UREA NITROGEN, BLOOD 26.0 mg/dL (7-18)
--- NOTE | 2025-03-19 09:54 | PN ---
SUBJECTIVE: The patient was seen by floor hand and scheduled her to have a Lexiscan stress test today. The patient had a chest CT. Results are pending. She was started on Rocephin 1 g for leukocytosis. OBJECTIVE: GENERAL: Currently awake, alert, oriented in person, time, place, not in distress. VITAL SIGNS: Vital signs are in the chart. HEENT: Normocephalic, atraumatic. LUNGS: Clear to auscultation. HEART: S1, S2 are distant. ABDOMEN: Soft and nontender. EXTREMITIES: No clubbing or cyanosis. The right knee covered with surgical gauzes. LABORATORY AND IMAGING DATA: Glucose count 10.6, hemoglobin 9.1, platelets 168. Sodium 136, potassium 3.9, BUN 26, creatinine 1.4, total calcium 7.8, albumin 2.4, total protein 5.8. Chest CT shows mild atelectasis in the lingula, both lower lobes. No infiltrates or effusions. Cardiomegaly with pericardial effusion. Moderate hiatus hernia. There is a hypodense lesion in the right lobe of the liver, likely benign. Elevation of the right hemidiaphragm. ASSESSMENT AND PLAN: * Right knee dislocation of the prosthetic hardware pending surgery tomorrow. * Leukocytosis is improving, most likely related to urinary tract infection. Urine cultures are positive for more than 100,000 colonies pending results. * Atrial fibrillation, rate controlled. 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 * Type 2 diabetes, diet controlled. * Chronic obstructive pulmonary disease/bronchiectasis. Continue bronchodilators and Mucomyst. * Coronary artery disease, pending results of Lexiscan stress test. * Congestive heart failure. Recent echocardiogram shows ejection fraction of 35% to 40%. There is trace posterior pericardial effusion on echocardiogram. * Follow up in a.m. with labs. DOS: 03/18/2025 TID: [id number] RECEIPT: [id number] [facility]
[2025-03-19] MEDS ORDERED: PHARMACY COMMUNICATION MISC SCH (10:30)
[2025-03-19] MEDS ORDERED: VANCOMYCIN PROTOCOL PER PHARMACY IV SCH (10:30)
--- NOTE | 2025-03-19 10:35 | EKG ---
[facility] Test Date: 2025-03-18 Test Time: 06:00:56 Pat Name: LORE OCONNELL Department: [facility] Room: 320 1 Gender: F [employer] Supervisor: [id number] : 1940 Requested By: BOYD NORIEGA Order Number: [id number] Reading MD: Birgit Nix Measurements Intervals [place] Rate: 105 P: 0 WI: 0 QRS: -30 QRSD: 80 T: 221 QT: 354 QTc: 467 Interpretive Statements Atrial fibrillation with rapid ventricular response with premature ventricular or aberrantly conducted complexes Left axis deviation Nonspecific ST and T wave abnormality Compared to ECG 02/20/2024 08:32:02 Left-axis deviation now present ST (T wave) deviation now present Sinus rhythm no longer present T-wave abnormality no longer present Electronically Signed On 03-21-2025 12:40:12 PHOTO ENGRAVER by Birgit Nix Please click the below link to view image of tracing.
--- NOTE | 2025-03-19 11:50 | NUR ---
NURSING NOTE PATIENT STARTED ON HEPARIN DRIP. INITIAL DOSE OD HEPARIN WAS GIVEN 6,420 UNITS PER PHARMACY. PATIENT TOLERATING WELL. ANSWERED ANY QUESTIONS AND CONCERNS PATIENT HAD. CALL LIGHT WITHIN REACH.
[2025-03-19] MEDS: VANCOMYCIN 1G/250ML KIT 250 ML IV SCH (11:55)
--- NOTE | 2025-03-19 14:20 | PN ---
The patient is hospital day 4. She was scheduled this morning for revision total knee arthroplasty She has a already been cleared by Cardiology, had Lexiscan yesterday which shows overall ischemia and apparently no further surgical treatment recommended except medications. I spoke with Dr. Jackson this morning that the stated that the urine culture grew out Enterococcus faecalis and he would like to treat her a list with a couple of days of antibiotics before we can proceed with the surgery which I agree. I have spoken with the patient and the daughter and I have explained that we are going to postpone the surgery for 48 hours and a the time we will proceed with the knee revision as explained before She has been in a beach wrist started on the heparin drip and Dr. Jackson we will start her on the IV antibiotics. The patient understands the plan and agrees Vitals/Labs Vital Signs Date Time Temp Pulse Resp B/P (MAP) Pulse Ox O2 Delivery O2 Flow Rate FiO2 03/19/25 12:00 98.4 94 19 101/60 95 Room Air 21 03/18/25 20:00 0 Laboratory Tests 03/19/25 05:48 Medications Current Medications Home Med 2 INHALATIONS BID BID IH Last administered on 03/19/25at 09:48; Start 03/16/25 at 09:00; Stop 04/15/25 at 08:59 Lidocaine 1 each DAILY TP Last administered on 03/19/25at 09:48; Start 03/16/25 at 09:00; Stop 04/15/25 at 08:59 Azithromycin 250 mg QMOFR PO; Start 03/18/25 at 09:00; Stop 03/28/25 at 08:59 Acetaminophen 650 mg Q6H PRN PO; Start 03/15/25 at 21:00; Stop 04/14/25 at 20:59 Acetaminophen/ Hydrocodone Bitart 1 tab Q6H PRN PO Last administered on 03/16/25at 21:00; Start 03/15/25 at 21:00; Stop 03/20/25 at 20:59 Aspirin 81 mg DAILY PO Last administered on 03/16/25at 09:35; Start 03/16/25 at 09:00; Stop 03/16/25 at 16:20; Status DC Hydromorphone HCl 0.5 mg Q4H PRN IVP Last administered on 03/19/25at 09:59; Start 03/15/25 at 21:00; Stop 03/20/25 at 20:59 Enoxaparin Sodium 30 mg DAILY SQ Last administered on 03/16/25at 09:39; Start 03/16/25 at 09:00; Stop 03/16/25 at 16:24; Status DC Metoprolol Tartrate 5 mg Q5M PRN IV Last administered on 03/18/25at 00:23; Start 03/15/25 at 21:00 Diltiazem HCl 30 mg Q8H5 PO Last administered on 03/16/25at 14:08; Start 03/15/25 at 21:00; Stop 03/16/25 at 16:20; Status DC Furosemide 40 mg Q48H PO; Start 03/18/25 at 09:00; Stop 04/17/25 at 08:59 Dronedarone 400 mg BID PO Last administered on 03/19/25at 09:48; Start 03/15/25 at 21:00; Stop 04/14/25 at 20:59 Ipratropium [place] 0.5 MG BID IH Last administered on 03/17/25at 06:30; Start 03/15/25 at 21:00; Stop 03/17/25 at 11:07; Status DC Lactulose 20 gm DAILY PO; Start 03/16/25 at 09:00; Stop 04/15/25 at 08:59 Pantoprazole Sodium 40 mg DAILY PO Last administered on 03/19/25at 09:47; Start 03/16/25 at 09:00; Stop 04/15/25 at 08:59 Sennosides 1 tab HS PO Last administered on 03/18/25at 21:18; Start 03/15/25 at 21:00; Stop 04/14/25 at 20:59 Buspirone HCl 10 mg HS PO Last administered on 03/18/25at 21:18; Start 03/15/25 at 21:00; Stop 04/14/25 at 20:59 Melatonin 10 mg HS PO Last administered on 03/18/25at 21:18; Start 03/15/25 at 21:00; Stop 04/14/25 at 20:59 Home Med HS PO Last administered on 03/15/25at 22:59; Start 03/16/25 at 21:00; Stop 03/16/25 at 03:20; Status DC Home Med BID NASAL; Start 03/16/25 at 09:00; Stop 04/15/25 at 08:59 Baclofen 20 mg HS PRN PO Last administered on 03/17/25at 20:48; Start 03/15/25 at 21:00; Stop 04/14/25 at 20:59 Vitamin B Complex 1,000 mcg DAILY PO; Start 03/16/25 at 09:00; Stop 03/17/25 at 02:33; Status DC Dextrose 50 ml AD PRN IV; Start 03/15/25 at 21:00; Stop 04/14/25 at 20:59 Glucagon 1 mg AD PRN IM; Start 03/15/25 at 21:00; Stop 04/14/25 at 20:59 Magnesium Sulfate 50 ml @ 0 mls/hr PROTOCOL PRN IV; Start 03/15/25 at 21:00; Stop 04/14/25 at 20:59 Potassium Chloride 100 ml @ 100 mls/hr AD PRN IV; Start 03/15/25 at 21:00; Stop 04/14/25 at 20:59 Potassium Chloride 20 meq AD PRN PO; Start 03/15/25 at 21:00; Stop 04/14/25 at 20:59 Potassium Chloride 20 meq AD PRN PO; Start 03/15/25 at 21:00; Stop 04/14/25 at 20:59 Potassium Chloride 100 ml @ 50 mls/hr AD PRN IV; Start 03/15/25 at 21:00; Stop 03/16/25 at 06:38; Status DC Metoprolol Tartrate 25 mg TID PO Last administered on 03/15/25at 22:20; Start 03/15/25 at 21:00; Stop 03/16/25 at 06:38; Status DC Multivitamins Therapeutic 1 tab DAILY PO Last administered on 03/19/25at 09:47; Start 03/16/25 at 09:00; Stop 04/15/25 at 08:59 Ondansetron HCl 4 mg Q4HPRN PRN IVP; Start 03/15/25 at 21:00; Stop 04/14/25 at 20:59 Home Med BIDMEALS PO Last administered on 03/19/25at 09:48; Start 03/16/25 at 21:00; Stop 04/15/25 at 20:59 Ferrous Fumarate 324 mg ONCE ONCE PO Last administered on 03/16/25at 12:03; Start 03/16/25 at 10:00; Stop 03/16/25 at 10:01; Status DC Diltiazem HCl 30 mg Q6H PO Last administered on 03/18/25at 01:57; Start 03/16/25 at 20:00; Stop 03/18/25 at 07:08; Status DC Heparin Sodium (Porcine) *calculation based on ACTUAL B... AD PRN IV Last administered on 03/19/25at 11:51; Start 03/16/25 at 17:30; Stop 04/15/25 at 17:29 Heparin Sodium/ Dextrose 250 ml @ 0 mls/hr Q6H IV Last administered on 03/19/25at 11:54; Start 03/16/25 at 17:30; Stop 04/15/25 at 17:29 Home Med DAILY PO Last administered on 03/19/25at 09:48; Start 03/17/25 at 09:00; Stop 04/16/25 at 08:59 Acetylcysteine 20 mg Q8H5 IH; Start 03/17/25 at 13:00; Stop 03/17/25 at 10:57; Status DC Ipratropium [place] 0.5 MG Q8H5 IH Last administered on 03/18/25at 18:49; Start 03/17/25 at 13:00; Stop 04/16/25 at 12:59 Sodium Chloride 4 ml STK-MED ONCE IH Last administered on 03/17/25at 13:39; Start 03/17/25 at 13:25; Stop 03/17/25 at 13:25; Status DC Acetylcysteine 200 mg Q8H5 IH Last administered on 03/18/25at 18:52; Start 03/17/25 at 14:00; Stop 04/16/25 at 13:59 Cefepime HCl 2 gm Q24H IVPB Last administered on 03/18/25at 15:30; Start 03/17/25 at 15:30; Stop 03/27/25 at 15:29 Sodium Chloride 4 ml STK-MED ONCE IH Last administered on 03/17/25at 18:26; Start 03/17/25 at 17:57; Stop 03/17/25 at 17:57; Status DC Lactulose 20 gm ONCE ONCE PO Last administered on 03/17/25at 20:56; Start 03/17/25 at 20:55; Stop 03/17/25 at 20:56; Status DC Sodium Chloride 4 ml STK-MED ONCE IH Last administered on 03/17/25at 23:29; Start 03/17/25 at 23:05; Stop 03/17/25 at 23:05; Status DC Metoprolol Tartrate 25 mg TID PO Last administered on 03/19/25at 09:47; Start 03/18/25 at 09:00; Stop 04/17/25 at 08:59 Regadenoson 0.4 mg STK-MED ONCE IVP Last administered on 03/18/25at 09:49; Start 03/18/25 at 09:32; Stop 03/18/25 at 09:32; Status DC Pharmacy Profile Note 1 each ONCE MISC; Start 03/19/25 at 10:30; Stop 03/19/25 at 10:23; Status DC Vancomycin HCl 1 each AD IV; Start 03/19/25 at 10:30; Stop 04/02/25 at 10:29 Vancomycin HCl 250 ml @ 125 mls/hr Q24H IV Last administered on 03/19/25at 11:55; Start 03/19/25 at 11:00; Stop 03/29/25 at 10:59 ALEKSANDR GARCIA MD Mar 19, 2025 14:20
[2025-03-20] VITALS (11 sets, daily range): BP systolic 99–123; BP diastolic 65–86; PULSE 96–115; RESP 18–20; TEMP 97.6–98.7; O2SAT 94–96
--- NOTE | 2025-03-20 06:22 | PN ---
SUBJECTIVE: The patient had a Lexiscan stress test yesterday. She was started on cefepime IV, got the results of urine cultures. She denies any fever, chills, or cough without changes. No nausea, vomiting. No dysuria or urgency. No rashes, petechiae or ecchymosis. OBJECTIVE: GENERAL: Currently awake, alert, oriented to person, time, and place. VITAL SIGNS: Blood pressure 110/72, pulse 101, and respiratory rate 18. HEENT: Normocephalic and atraumatic. LUNGS: Clear to auscultation. HEART: S1, S2 are distant. ABDOMEN: Abdomen is soft and nontender. EXTREMITIES: No clubbing or cyanosis. The right lower extremity is with an immobilizer in place. LABORATORY DATA: WBC count 10.3, hemoglobin 9, and platelets 195. Sodium 135, potassium 4.3, BUN 26, creatinine 1.4, and albumin 2.4. Urine culture positive for Enterococcus faecalis, sensitive to ampicillin, vancomycin, nitrofurantoin, penicillin, and methyptomycin. Lexiscan was reported with left ventricular size normal. The left ventricular systolic function is borderline decreased. The ejection fraction calculated 63%. Inferior hypokinesis, apical akinesis, fixed inferoapical thinning defect. No reversible ischemia. Chest CT was reported as with mild atelectasis in the lingula and both lower lobes. No pulmonary infiltrate. No pleural effusions. Cardiomegaly with pericardial effusion, coronary artery disease, moderate hiatus hernia, elevation of the right hemidiaphragm. ASSESSMENT AND PLAN: * Status post fall with right total knee arthroplasty dislocation, pending removal of hardware. * Coronary artery disease, Lexiscan with a fixed defect and normal ejection fraction. Continue current approach. * Atrial fibrillation. Continue current treatment, anticoagulation. The patient was started on heparin drip. * Anemia. Continue to monitor. * Leukocytosis, resolved. * Urinary tract infection with positive cultures for Enterococcus. We are going to start vancomycin 1 gram and continue recommendations by the Pharmacy. * Continue cefepime. * No evidence of congestive heart failure through the Lexiscan. * COPD and bronchiectasis. Continue bronchodilators. Mucomyst. * Follow up in a.m. with results of tests. DOS: 03/19/2025 TID: [id number] [facility] [id number] [facility]
[2025-03-20 06:50] LABS: IMMATURE GRANULOCYTE ABSOLUTE 0.03 K/uL (0-1); NUCLEATED RED BLOOD CELLS 0.0 % (0.0-0.19); PLATELET COUNT (AUTO) 221 K/uL (130-400); RED BLOOD CELL COUNT(AUTO) 2.77 MIL/uL (4.00-5.50); RED CELL DISTRIBUTION WIDTH 13.6 % (11.0-15.5); WHITE BLOOD COUNT (AUTO) 8.7 K/uL (4.8-10.8)
[2025-03-20 07:10] LABS: ASPARTATE AMINOTRANSFERASE 13.0 U/L (10-37); CREATININE 1.3 mg/dL (0.5-1.0); GLOMERULAR FILTR. RATE CALC 41.0 mL/min (>90); GLUCOSE,RANDOM 110.0 mg/dL (70-105); SODIUM SERUM 135.0 mmol/L (136-145); TOTAL PROTEIN, SERUM 6.0 g/dL (6.0-8.3); UREA NITROGEN, BLOOD 26.0 mg/dL (7-18)
--- NOTE | 2025-03-20 12:13 | PN ---
PROBLEM LIST: 1. Mechanical fall without loss of consciousness with dislocation of prior implantation of total right knee prosthesis. 2. History of paroxysmal atrial fibrillation with persistent atrial fibrillation on this admission. 3. History of CVA, questionably cardioembolic following AFib ablation in 2020 while off anticoagulation. 4. History of right and left lower extremity hematoma, on Xarelto therapy, currently on hold. 5. 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 6. Cardiomyopathy with EF of 35-40% with a severely dilated left atrium and right atrium with increased left atrial pressure with mild aortic regurgitation, mild to moderate mitral regurgitation and moderate tricuspid regurgitation with moderate pulmonary hypertension and trace posterior pericardial effusion by echocardiography on this admission. 7. Octogenarian. 8. History of morbid obesity with remote gastric bypass surgery. 9. 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 10. COPD and bronchiectasis. 11. Chronic lumbosacral spine disease. This patient has been hospitalized and assessed by us because of her multiple comorbid conditions. The patient had an evaluation with an echocardiogram on this admission prior to any surgical intervention that has revealed an EF of 35-40%. The patient had Lexiscan Cardiolite which has revealed inferior wall hypokinesis with apical akinesis. The patient had fixed inferior apical thinning with no evidence of reversible ischemia. The patient has been tentatively scheduled to undergo knee revision surgery; however, Dr. Brown felt that the patient should be managed with antibiotic therapy for now. Apparently, she had a urine culture that was positive for enterococcus faecalis and Dr. Jackson recommended that we continue with IV antibiotics for a few days prior to surgical intervention, which Dr. Brown supports. Over the last 24 hours, the patient's vital signs have been stable. She has been afebrile. Her heart rate has been in the 95-105 per minute range. Respiratory rate is 18-20. She is saturating at 96% on room air with a blood pressure of 100-115 systolic range. The patient's current laboratory studies revealed a white count of 8.7, H and H of 9.6 and 29.7, respectively. The platelet count is currently 221,000. Chemistries revealed a sodium of 135, potassium of 4.3, chloride 100, CO2 is 29, BUN is 26, creatinine is 1.3 with a GFR up to 41. The patient's random glucose is 110. The liver enzymes are normal. The albumin is low at 2.4 consistent with protein malnutrition. In trending the patient's renal function, it is evident that she has improved and was measured at 1.6 on the first. At this point, the patient will be continued on the current care. We will continue to monitor her and follow along with the primary care team and Orthopedic Surgery. TID: [id number] RECEIPT: [id number]
[2025-03-20] MEDS ORDERED: HYDROcodone/APAP 5/325 1 TAB TABLET PO PRN (23:00)
[2025-03-21] VITALS (35 sets, daily range): BP systolic 93–113; BP diastolic 57–77; PULSE 86–133; RESP 15–20; TEMP 96.9–98.3; O2SAT 95–97
--- NOTE | 2025-03-21 04:41 | PN ---
SUBJECTIVE: Comfortable, afebrile, complaining of constipation. No fever or chills. No chest pain. She is on cefepime and vancomycin IV. Scheduled for right surgery tomorrow. OBJECTIVE: GENERAL: Currently awake, alert, oriented to person, time, and place. VITAL SIGNS: Blood pressure 123/86, pulse 106, respirations 18. HEENT: Normocephalic, atraumatic. LUNGS: Decreased breath sounds at bases. HEART: S1, S2 are distant. ABDOMEN: Soft, nontender. EXTREMITIES: No clubbing or cyanosis. LABORATORY DATA: White blood cell count 8.7, hemoglobin 9.6, platelets 221. Sodium 135, potassium 4.3, BUN 26, creatinine 1.3, albumin 2.4. ASSESSMENT AND PLAN: * Status post fall with right total knee arthroplasty with femur dislocation, pending removal of hardware by Dr. Brown in the morning. * Coronary artery disease: Stable. Continue current treatment. * Atrial fibrillation: Continue current treatment by Cardiology. * Anticoagulation: The patient is on heparin as per Cardiology. * Anemia: Continue to monitor transfusion on a p.r.n. basis. * Urinary tract infection: Controlled on vancomycin and cefepime. No leukocytosis. * COPD with bronchiectasis: Continue bronchodilators. * Follow up in the morning with results. DOS: 03/20/2025 TID: [id number] RECEIPT: [id number] MTDD
[2025-03-21 05:42] LABS: IMMATURE GRANULOCYTE ABSOLUTE 0.05 K/uL (0-1); NUCLEATED RED BLOOD CELLS 0.0 % (0.0-0.19); PLATELET COUNT (AUTO) 213 K/uL (130-400); RED BLOOD CELL COUNT(AUTO) 2.77 MIL/uL (4.00-5.50); RED CELL DISTRIBUTION WIDTH 13.4 % (11.0-15.5); WHITE BLOOD COUNT (AUTO) 8.3 K/uL (4.8-10.8)
[2025-03-21 06:01] LABS: ASPARTATE AMINOTRANSFERASE 18.0 U/L (10-37); CREATININE 1.5 mg/dL (0.5-1.0); GLOMERULAR FILTR. RATE CALC 34.0 mL/min (>90); GLUCOSE,RANDOM 95.0 mg/dL (70-105); SODIUM SERUM 137.0 mmol/L (136-145); TOTAL PROTEIN, SERUM 5.8 g/dL (6.0-8.3); UREA NITROGEN, BLOOD 28.0 mg/dL (7-18)
[2025-03-21] MEDS ORDERED: VANCOMYCIN 500 MG IV ONE (07:00)
[2025-03-21] MEDS ORDERED: [UNRECOGNIZED DRUG - OTHER] IV ONE (07:00)
[2025-03-21] MEDS ORDERED: LIDOCAINE PF 100MG/5ML (2%) SYRINGE 5ML ONE (07:14)
[2025-03-21] MEDS ORDERED: SUCCINYLCHOLINE CHLORIDE 20 MG/ML 10 ML VIAL ONE (07:14)
[2025-03-21] MEDS ORDERED: MIDAZOLAM HCL 1 MG/ML 2ML VIAL ONE (07:15)
[2025-03-21] MEDS ORDERED: PROMETHAZINE HCL 25 MG/ML 1ML AMPULE IM PRN ×2 (08:00→13:00)
[2025-03-21] MEDS ORDERED: ALBUMIN (HUMAN) 5% 250 ML IV ONE ×2 (08:18→08:34)
[2025-03-21 11:28] LABS: ABG BASE EXCESS -1.8 mmol/L (-2.0-3.0); ABG HCO3 23.4 mmol/L (21.0-28.0); ABG OXYGEN SATURATION 99.4 % (94.0-98.0); ABG PCO2 42 mmHg (32-45); ABG PH 7.368 (7.350-7.450); CARBON MONOXIDE 0.1 % (0.5-1.5); PO2, ARTERIAL BG 241.9 mmHg (83.0-108.0); TEMPERATURE, CELSIUS BG 37.0 CELSIUS (35.5-37.0)
--- NOTE | 2025-03-21 12:57 | OP ---
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 SSK 360 tibia component size 75 with a 10 mm bilateral tibia augmentations, small Theron and 14 x 40 stem. Tibial liner size 16 x 71/75 PS] PROCEDURE: [Revision right total knee arthroplasty tibial and femoral component] ESTIMATED BLOOD LOSS: [150 mL] INDICATIONS: [The patient is an 84-year-old female that had a total knee arth roplasty done 30 years ago and has been having issues with instability that became worse after a fall in which the knee dislocated posteriorly. The patient is brought to the operating room for a revision total knee arthroplasty. Procedure understood, risks, benefits and possible complications and the patient agreed to sign the consent form] DESCRIPTION OF PROCEDURE: [After adequate general anesthesia was achieved and regional block obtain the patient's right lower extremity was prepped and draped in the usual manner. The leg was exsanguinated and the tourniquet was inflated to 300 mmHg. Following the same surgical scar previously present an incision was carried down utilizing most of the this length entering into the subcutaneous tissue after the skin was incised and then the subcutaneous tissue was displaced laterally to expose the center of the knee. A paramedian approach was then made entering into the knee joint obtaining inflammatory fluid but no signs of infection. The patient has a very significant inflammatory synovium with signs of plastic wear. The synovium was removed completely from the joint as well as small pieces of plastic present. After the complete synovectomy was achieved we proceeded then to bring the knee forward and after retractors were applied we use a small oscillating saw and proceeded to penetrate between the bone metal interface of the femur in all directions medially and laterally followed by use of the Gigli saw that was put proximally anteriorly and then we proceeded to dissect in the bone metal interface again and once we reached the distal aspect we proceeded then to remove it and then with the use of a bone tamp remove the femur, coming out almost intact with very minimal bone loss that did not affect the shape of the femur or length. The component was Press-Fit. The size of the femoral component was determined with a revision guide and then we proceeded to applied the PS cutting block of the femur and the intercondylar cut was made with a any difficulty. We then applied a PCL retractor bringing the tibia forward and once the medial and lateral retractors were also applied to stabilize the knee and the plastic liner locking screw was removed and then the plastic liner was removed noticing that it had significant wear mostly in the medial compartment and anterior aspect. Four cancellous screws were then removed from the tibial plate and utilizing the micro saw as well as the flexible osteotomes we proceeded to make a separation between the metal and bone followed by use of the bone tamp and with the knee in extension we are able to loosen up the component bringing then the knee in hyperflexion and the tibial component was removed noticing that there was very minimal loss of bone surface and that the central portion of the metaphysis contain very soft bone. The external tibial alignment guide was then applied and a very small cut was made with the surface to level of the alignment which was corroborated to be adequate with the x-rays and after measuring the tibial plate we proceeded then to apply it with the tibial liner and the knee was brought into extension noticing that the patient had significant hyperextension reason why we added a very thick liner, deciding to instead apply 10 mm medial and lateral tibial augmentation under the plate noticing that with a thick liner made the knee stable in extension as well as with varus and valgus stress. Because with the standard tibia remained in the area of very soft bone I opted to apply a stem and for this reason reaming was done and we switched to an SSK tibial plate with a14 x 40 mm stem. The components were then removed the joint was completely irrigated the bone debris while the implants were prepared in the back table and after this was achieved cement was mixed also in the back table and then applied 1st to the tibia followed by application of the tibial component removing the excess cement and then we proceeded to apply the femoral component also removing the excess cement and then a tibial liner was inserted and the knee was placed in extension to allow the bone to dried while the joint was being irrigated with a Betadine solution followed by normal saline solution once the cement dried. The tourniquet was deflated bleeders were controlled with the use of Bovie cautery. The trial liner was then removed and the final liner was applied and locked to the tibia plate noticing that the patient had a near full flexion and extension, no laxity with valgus or varus and adequate patellar tracking. After the wound was again irrigated Esmarch drain was placed through a separate stab incision and then we proceeded to close the wound with a approximation of the quadriceps tendon, patellar retinaculum and patellar tendon retinaculum with both, 1. Ethibond and 1. Vicryl crossed stitches. This was followed by closure of the subcutaneous tissue with 2-0 Vicryl inverted stitches and the skin was closed with 3-0 Monocryl subcuticularly. A suction dressing was applied to cover the incision and the drain was secure. An Blake bandage was then applied around the knee after the drapes were removed. After the patient was awakened she was transferred to her bed and taken to recovery room for follow-up by anesthesia. There were no complications during the procedure] ALEKSANDR GARCIA MD Mar 21, 2025 12:57
[2025-03-21] MEDS ORDERED: FERROUS FUMARATE 324 MG TABLET PO PRN (13:00)
[2025-03-21] MEDS: 0.9%NACL 1000ML 1,000 ML IV SCH (13:00)
--- NOTE | 2025-03-21 13:10 | HMCIMG ---
Fluoroscopic support provided for right knee surgery /[place]
--- NOTE | 2025-03-21 13:58 | NUR ---
NURSING NOTE RECEIVED PATIENT FROM PACU. PATIENT HAD RIGHT KA REVISION DONE BY DR GARCIA. PATIENT TRANSFERRED TO ROOM VIA BED. PATIENT ORIENTATED TO ROOM. VITAL SIGNS WERE STARTED AND NO 02 WAS NEEDED. PATIENT CONNECTED TO FLUIDS. ANSWERED ANY QUESTIONS AND CONCERNS PATIENT HAD.
[2025-03-21] MEDS: VANCOMYCIN 1G/250ML KIT 250 ML IV SCH (16:02)
[2025-03-21] MEDS: HYDROcodone/APAP 5/325 1 TAB TABLET PO PRN (16:02)
[2025-03-21] MEDS: SUGAMMADEX SODIUM 200 MG/2 ML VIAL IV ONE (19:44)
--- NOTE | 2025-03-21 20:00 | NUR ---
HEPARIN SHIFT ASSESSMENT DONE, PLEASE REFER TO CHART. PT CLAIMS OF PAINS TO RT KNEE SX. EXPLAINED TO PT THAT MD HAD ALREADY ORDERED PAIN MEDS. RE-STARTED HEPARIN DRIP WITH VIELKA MASON NURSE. MEDICATED WITH DILAUDID IV FOR PAINS. DUE MEDS ADMINISTERED, TOLERATED WELL. RE-STARTED IVF OF NS REGULATED AT 100CC/HR. PT TOLERATING CLEAR LIQUID DIET WELL. KEPT RESTED AND COMFORTABLE IN BED WITH HOB ELEVATED. KEPT ON O2 AT 2LPM VIA NC. WILL RE-ASSESS PT.
[2025-03-21] MEDS: FAMOTIDINE 20MG TAB PO SCH (20:18)
--- NOTE | 2025-03-21 23:30 | NUR ---
PAIN PT CALLS AND COMPLAINTS OF PAINS TO RT KNEE SX SITE. MEDICATED WITH NORCO PO. ICE PACKS APPLIED TO RT KNEE. KEPT COMFORTABLE AND RESTED. WILL RE-ASSESS PT.
[2025-03-22] VITALS (12 sets, daily range): BP systolic 91–107; BP diastolic 53–77; PULSE 89–119; RESP 18–20; TEMP 97.4–98.1; O2SAT 94–97
--- NOTE | 2025-03-22 00:52 | NUR ---
PTT LAB CALLED AND INFORMS PRACTICE MANAGEMENT CONSULTANT THAT PTT => [phone]. STOPPED HEPARIN DRIP FOR NOW, TO BE STOPPED FOR 60 MINS PER PROTOCOL.
--- NOTE | 2025-03-22 02:00 | NUR ---
DRIP RE-STARTED HEPARIN DRIP AT 15 UNITS/KG/HR, WITNESSED BY GERMAN STEPHEN RN.
[2025-03-22 04:27] LABS: NUCLEATED RED BLOOD CELLS 0.0 % (0.0-0.19); PLATELET COUNT (AUTO) 198.0 K/uL (130-400); RED BLOOD CELL COUNT(AUTO) 2.9 MIL/uL (4.00-5.50); RED CELL DISTRIBUTION WIDTH 16.3 % (11.0-15.5); WHITE BLOOD COUNT (AUTO) 12.1 K/uL (4.8-10.8)
[2025-03-22 04:35] LABS: CREATININE 1.4 mg/dL (0.5-1.0); GLOMERULAR FILTR. RATE CALC 37.0 mL/min (>90); GLUCOSE,RANDOM 128.0 mg/dL (70-105); SODIUM SERUM 137.0 mmol/L (136-145); UREA NITROGEN, BLOOD 30.0 mg/dL (7-18)
--- NOTE | 2025-03-22 06:20 | NUR ---
DRIP PTT RESULTS=72.8. PER PROTOCOL DECREASED HEPARIN DRIP RATE BY 2 UNITS/KG/HR. CHANGE OF DRIP RATE WITNESSED BY JOSE KEY.
--- NOTE | 2025-03-22 06:30 | NUR ---
PAIN PT CLAIMS OF PAINS TO RT KNEE SX SITE. RE-POSITIONED PT IN BED WITH HOB ELEVATED. REMOVED JACKIE WRAP ON SX SITE. CONTINUED ICE PACKS TO SX SITE Q6H. MEDICATED WITH NORCO PO FOR PAINS. KEPT RESTED AND COMFORTABLE IN BED. WILL RE-ASSESS PT.
--- NOTE | 2025-03-22 07:55 | PN ---
Ortho postop day one. This morning the patient is awake alert and oriented. She is in no acute distress. Reporting moderate pain but states it is manageable. The daughter is at the bedside. Vital signs have remained fairly stable slightly hypotensive. Afebrile. Laboratory results reviewed patient suffers from anemia which was exacerbated with surgery. We will continue to observe and treat per protocol as necessary. She is voiding on her own and already passing gas. Operative findings discussed with the patient. The Blake bandage his already been removed. The dressing is intact flashing green. Ice present to the extremity. Bilateral SCD stockings currently on since patient is in bed and pending physical therapy yet this morning. Drain output overnight 370 mL sanguinous fluid at present less than 5 ml present. The gastrocnemius a soft nontender negative Homans. Distal neurovascular exam normal. Discussed with the patient after she has stable from a medical standpoint we would like for her to start ambulating with the physical therapy weight-bearing as tolerated which likely we will begin this morning. Reinforced incentive spirometry especially since she is still in bed. Reinforced proper use of incentive spirometry and returned demonstration adequate. She has been restarted on her heparin per cardiology. Currently on antibiotics for UTI. Discharge disposition likely skilled nurse facility. Assessment: Status post right total knee arthroplasty revision. Acute postoperative blood loss anemia. Plan: Continue with Dr. Haque TKA protocol and discharge planning. Continue with the marble carver plan of care. Continue with the admitting physician plan of care. Acute postoperative blood loss anemia address with the protocol as necessary Vitals/Labs Vital Signs Date Time Temp Pulse Resp B/P (MAP) Pulse Ox O2 Delivery O2 Flow Rate FiO2 03/22/25 04:00 97.9 109 18 107/65 95 Nasal Cannula 2.0 24 Laboratory Tests 03/22/25 04:08 Medications Current Medications Home Med 2 INHALATIONS BID BID IH Last administered on 03/21/25at 20:35; Start 03/16/25 at 09:00; Stop 04/15/25 at 08:59 Lidocaine 1 each DAILY TP Last administered on 03/20/25at 08:23; Start 03/16/25 at 09:00; Stop 04/15/25 at 08:59 Azithromycin 250 mg QMOFR PO; Start 03/18/25 at 09:00; Stop 03/28/25 at 08:59 Acetaminophen 650 mg Q6H PRN PO; Start 03/15/25 at 21:00; Stop 04/14/25 at 20:59 Acetaminophen/ Hydrocodone Bitart 1 tab Q6H PRN PO Last administered on 03/16/25at 21:00; Start 03/15/25 at 21:00; Stop 03/20/25 at 20:59; Status DC Aspirin 81 mg DAILY PO Last administered on 03/16/25at 09:35; Start 03/16/25 at 09:00; Stop 03/16/25 at 16:20; Status DC Hydromorphone HCl 0.5 mg Q4H PRN IVP Last administered on 03/20/25at 13:28; Start 03/15/25 at 21:00; Stop 03/20/25 at 20:59; Status DC Enoxaparin Sodium 30 mg DAILY SQ Last administered on 03/16/25at 09:39; Start 03/16/25 at 09:00; Stop 03/16/25 at 16:24; Status DC Metoprolol Tartrate 5 mg Q5M PRN IV Last administered on 03/18/25at 00:23; Start 03/15/25 at 21:00 Diltiazem HCl 30 mg Q8H5 PO Last administered on 03/16/25at 14:08; Start 03/15/25 at 21:00; Stop 03/16/25 at 16:20; Status DC Furosemide 40 mg Q48H PO Last administered on 03/20/25at 08:22; Start 03/18/25 at 09:00; Stop 04/17/25 at 08:59 Dronedarone 400 mg BID PO Last administered on 03/21/25at 20:17; Start 03/15/25 at 21:00; Stop 04/14/25 at 20:59 Ipratropium [place] 0.5 MG BID IH Last administered on 03/17/25at 06:30; Start 03/15/25 at 21:00; Stop 03/17/25 at 11:07; Status DC Lactulose 20 gm DAILY PO; Start 03/16/25 at 09:00; Stop 04/15/25 at 08:59 Pantoprazole Sodium 40 mg DAILY PO Last administered on 03/20/25at 08:22; Start 03/16/25 at 09:00; Stop 04/15/25 at 08:59 Sennosides 1 tab HS PO Last administered on 03/21/25at 20:18; Start 03/15/25 at 21:00; Stop 04/14/25 at 20:59 Buspirone HCl 10 mg HS PO Last administered on 03/21/25at 20:18; Start 03/15/25 at 21:00; Stop 04/14/25 at 20:59 Melatonin 10 mg HS PO Last administered on 03/21/25at 20:18; Start 03/15/25 at 21:00; Stop 04/14/25 at 20:59 Home Med HS PO Last administered on 03/15/25at 22:59; Start 03/16/25 at 21:00; Stop 03/16/25 at 03:20; Status DC Home Med BID NASAL; Start 03/16/25 at 09:00; Stop 04/15/25 at 08:59 Baclofen 20 mg HS PRN PO Last administered on 03/17/25at 20:48; Start 03/15/25 at 21:00; Stop 04/14/25 at 20:59 Vitamin B Complex 1,000 mcg DAILY PO; Start 03/16/25 at 09:00; Stop 03/17/25 at 02:33; Status DC Dextrose 50 ml AD PRN IV; Start 03/15/25 at 21:00; Stop 04/14/25 at 20:59 Glucagon 1 mg AD PRN IM; Start 03/15/25 at 21:00; Stop 04/14/25 at 20:59 Magnesium Sulfate 50 ml @ 0 mls/hr PROTOCOL PRN IV; Start 03/15/25 at 21:00; Stop 04/14/25 at 20:59 Potassium Chloride 100 ml @ 100 mls/hr AD PRN IV; Start 03/15/25 at 21:00; Stop 04/14/25 at 20:59 Potassium Chloride 20 meq AD PRN PO; Start 03/15/25 at 21:00; Stop 04/14/25 at 20:59 Potassium Chloride 20 meq AD PRN PO; Start 03/15/25 at 21:00; Stop 04/14/25 at 20:59 Potassium Chloride 100 ml @ 50 mls/hr AD PRN IV; Start 03/15/25 at 21:00; Stop 03/16/25 at 06:38; Status DC Metoprolol Tartrate 25 mg TID PO Last administered on 03/15/25at 22:20; Start 03/15/25 at 21:00; Stop 03/16/25 at 06:38; Status DC Multivitamins Therapeutic 1 tab DAILY PO Last administered on 03/20/25at 08:22; Start 03/16/25 at 09:00; Stop 04/15/25 at 08:59 Ondansetron HCl 4 mg Q4HPRN PRN IVP; Start 03/15/25 at 21:00; Stop 03/21/25 at 14:11; Status DC Home Med BIDMEALS PO Last administered on 03/20/25at 17:59; Start 03/16/25 at 21:00; Stop 04/15/25 at 20:59 Ferrous Fumarate 324 mg ONCE ONCE PO Last administered on 03/16/25at 12:03; Start 03/16/25 at 10:00; Stop 03/16/25 at 10:01; Status DC Diltiazem HCl 30 mg Q6H PO Last administered on 03/18/25at 01:57; Start 03/16/25 at 20:00; Stop 03/18/25 at 07:08; Status DC Heparin Sodium (Porcine) *calculation based on ACTUAL B... AD PRN IV Last administered on 03/21/25at 19:55; Start 03/16/25 at 17:30; Stop 04/15/25 at 17:29 Heparin Sodium/ Dextrose 250 ml @ 0 mls/hr Q6H IV Last administered on 03/21/25at 20:04; Start 03/16/25 at 17:30; Stop 04/15/25 at 17:29 Home Med DAILY PO Last administered on 03/20/25at 08:23; Start 03/17/25 at 09:00; Stop 04/16/25 at 08:59 Acetylcysteine 20 mg Q8H5 IH; Start 03/17/25 at 13:00; Stop 03/17/25 at 10:57; Status DC Ipratropium [place] 0.5 MG Q8H5 IH Last administered on 03/21/25at 18:24; Start 03/17/25 at 13:00; Stop 04/16/25 at 12:59 Sodium Chloride 4 ml STK-MED ONCE IH Last administered on 03/17/25at 13:39; Start 03/17/25 at 13:25; Stop 03/17/25 at 13:25; Status DC Acetylcysteine 200 mg Q8H5 IH Last administered on 03/21/25at 18:25; Start 03/17/25 at 14:00; Stop 04/16/25 at 13:59 Cefepime HCl 2 gm Q24H IVPB Last administered on 03/21/25at 16:01; Start 03/17/25 at 15:30; Stop 03/27/25 at 15:29 Sodium Chloride 4 ml STK-MED ONCE IH Last administered on 03/17/25at 18:26; Start 03/17/25 at 17:57; Stop 03/17/25 at 17:57; Status DC Lactulose 20 gm ONCE ONCE PO Last administered on 03/17/25at 20:56; Start 03/17/25 at 20:55; Stop 03/17/25 at 20:56; Status DC Sodium Chloride 4 ml STK-MED ONCE IH Last administered on 03/17/25at 23:29; Start 03/17/25 at 23:05; Stop 03/17/25 at 23:05; Status DC Metoprolol Tartrate 25 mg TID PO Last administered on 03/21/25at 20:17; Start 03/18/25 at 09:00; Stop 04/17/25 at 08:59 Regadenoson 0.4 mg STK-MED ONCE IVP Last administered on 03/18/25at 09:49; Start 03/18/25 at 09:32; Stop 03/18/25 at 09:32; Status DC Pharmacy Profile Note 1 each ONCE MISC; Start 03/19/25 at 10:30; Stop 03/19/25 at 10:23; Status DC Vancomycin HCl 1 each AD IV; Start 03/19/25 at 10:30; Stop 04/02/25 at 10:29 Vancomycin HCl 250 ml @ 125 mls/hr Q24H IV Last administered on 03/20/25at 13:21; Start 03/19/25 at 11:00; Stop 03/21/25 at 14:14; Status DC Cefazolin Sodium 2 gm ONCALL IVPB Last administered on 03/21/25at 09:06; Start 03/21/25 at 08:00; Stop 03/21/25 at 06:19; Status DC Hydromorphone HCl 0.5 mg Q4H PRN IVP Last administered on 03/20/25at 22:59; Start 03/20/25 at 23:00; Stop 03/21/25 at 14:17; Status DC Acetaminophen/ Hydrocodone Bitart 1 tab Q6H PRN PO; Start 03/20/25 at 23:00; Stop 03/21/25 at 12:57; Status DC Cefazolin Sodium 2 gm ONCALL IVPB; Start 03/21/25 at 06:30; Stop 03/21/25 at 14:11; Status DC Cefazolin Sodium 1 gm STK-MED ONCE .ROUTE; Start 03/21/25 at 07:00; Stop 03/21/25 at 07:00; Status DC Vancomycin HCl 0 ml @ As Directed STK-MED ONCE IV; Start 03/21/25 at 07:00; Stop 03/21/25 at 07:00; Status DC Lidocaine HCl 100 mg STK-MED ONCE .ROUTE; Start 03/21/25 at 07:14; Stop 03/21/25 at 07:14; Status DC Phenylephrine HCl 10 mg STK-MED ONCE IV; Start 03/21/25 at 07:14; Stop 03/21/25 at 07:14; Status DC Ondansetron HCl 4 mg STK-MED ONCE .ROUTE; Start 03/21/25 at 07:14; Stop 03/21/25 at 07:14; Status DC Ropivacaine 150 mg STK-MED ONCE .ROUTE; Start 03/21/25 at 07:14; Stop 03/21/25 at 07:14; Status DC Succinylcholine Chloride 200 mg STK-MED ONCE .ROUTE; Start 03/21/25 at 07:14; Stop 03/21/25 at 07:14; Status DC Ephedrine Sulfate 50 mg STK-MED ONCE .ROUTE; Start 03/21/25 at 07:14; Stop 03/21/25 at 07:15; Status DC Midazolam HCl 2 mg STK-MED ONCE .ROUTE; Start 03/21/25 at 07:15; Stop 03/21/25 at 07:15; Status DC Propofol 200 mg STK-MED ONCE IV; Start 03/21/25 at 07:15; Stop 03/21/25 at 07:15; Status DC Ketamine HCl 50 mg STK-MED ONCE .ROUTE; Start 03/21/25 at 07:15; Stop 03/21/25 at 07:15; Status DC Rocuronium [place] 50 mg STK-MED ONCE .ROUTE; Start 03/21/25 at 07:15; Stop 03/21/25 at 07:15; Status DC Fentanyl Citrate 100 mcg STK-MED ONCE .ROUTE; Start 03/21/25 at 07:15; Stop 03/21/25 at 07:15; Status DC Ondansetron HCl 4 mg AD PRN IVP; Start 03/21/25 at 08:00; Stop 03/21/25 at 10:51; Status DC Metoclopramide HCl 10 mg AD PRN IVP; Start 03/21/25 at 08:00; Stop 03/21/25 at 10:51; Status DC Promethazine HCl 25 mg AD PRN IM; Start 03/21/25 at 08:00; Stop 03/21/25 at 10:51; Status DC Ketorolac Tromethamine 30 mg AD PRN IV; Start 03/21/25 at 08:00; Stop 03/21/25 at 10:51; Status DC Morphine Sulfate 2 mg AD PRN IVP; Start 03/21/25 at 08:00; Stop 03/21/25 at 10:51; Status DC Fentanyl Citrate 25 mcg Q5MIN PRN IVP; Start 03/21/25 at 08:00; Stop 03/21/25 at 10:51; Status DC Naloxone HCl 0.1 mg AD PRN IVP; Start 03/21/25 at 08:00; Stop 03/21/25 at 10:51; Status DC Acetaminophen 100 ml @ As Directed STK-MED ONCE .ROUTE; Start 03/21/25 at 07:49; Stop 03/21/25 at 07:50; Status DC Albumin Human 250 ml @ As Directed STK-MED ONCE IV; Start 03/21/25 at 08:18; Stop 03/21/25 at 08:18; Status DC Albumin Human 250 ml @ As Directed STK-MED ONCE IV; Start 03/21/25 at 08:34; Stop 03/21/25 at 08:34; Status DC Cefazolin Sodium 3 gm STK-MED ONCE IRRIG Last administered on 03/21/25at 09:51; Start 03/21/25 at 09:51; Stop 03/21/25 at 09:56; Status DC Rocuronium [place] 50 mg STK-MED ONCE .ROUTE; Start 03/21/25 at 10:20; Stop 03/21/25 at 10:21; Status DC Fentanyl Citrate 100 mcg STK-MED ONCE .ROUTE; Start 03/21/25 at 10:35; Stop 03/21/25 at 10:35; Status DC Fentanyl Citrate 100 mcg STK-MED ONCE .ROUTE; Start 03/21/25 at 12:23; Stop 03/21/25 at 12:24; Status DC Ondansetron HCl 4 mg AD PRN IVP; Start 03/21/25 at 13:00; Stop 03/21/25 at 14:11; Status DC Metoclopramide HCl 10 mg AD PRN IVP; Start 03/21/25 at 13:00; Stop 03/21/25 at 14:15; Status DC Promethazine HCl 25 mg AD PRN IM; Start 03/21/25 at 13:00; Stop 03/21/25 at 14:11; Status DC Ketorolac Tromethamine 30 mg AD PRN IV; Start 03/21/25 at 13:00; Stop 03/21/25 at 14:11; Status DC Morphine Sulfate 2 mg AD PRN IVP; Start 03/21/25 at 13:00; Stop 03/21/25 at 14:11; Status DC Fentanyl Citrate 25 mcg Q5MIN PRN IVP; Start 03/21/25 at 13:00; Stop 03/21/25 at 14:11; Status DC Naloxone HCl 0.1 mg AD PRN IVP; Start 03/21/25 at 13:00; Stop 03/21/25 at 14:11; Status DC Sodium Chloride 1,000 ml @ 100 mls/hr Q10H IV Last administered on 03/21/25at 13:00; Start 03/21/25 at 13:00; Stop 03/22/25 at 12:59 Polyethylene Glycol 17 gm DAILY PO; Start 03/22/25 at 09:00; Stop 04/21/25 at 08:59 Bisacodyl 10 mg DAILY PRN RC; Start 03/24/25 at 13:00; Stop 04/23/25 at 12:59 Ketorolac Tromethamine 15 mg Q6H PRN IV; Start 03/21/25 at 13:00; Stop 03/26/25 at 12:59 Famotidine 20 mg Q48H PO Last administered on 03/21/25at 20:18; Start 03/21/25 at 21:00; Stop 04/20/25 at 20:59 Ferrous Fumarate 324 mg DAILY PRN PO; Start 03/21/25 at 13:00; Stop 04/20/25 at 12:59 Temazepam 15 mg HS PRN PO; Start 03/21/25 at 13:00; Stop 04/20/25 at 12:59 Ondansetron HCl 4 mg Q6H PRN IVP; Start 03/21/25 at 13:00; Stop 04/20/25 at 12:59 Calcium Carbonate 500 mg Q12H PRN PO; Start 03/21/25 at 13:00; Stop 04/20/25 at 12:59 Diphenhydramine HCl 25 mg Q6H PRN IVP; Start 03/21/25 at 13:00; Stop 04/20/25 at 12:59 Acetaminophen/ Hydrocodone Bitart Q4H PRN PO Last administered on 03/22/25at 06:33; Start 03/21/25 at 13:00; Stop 03/26/25 at 12:59 Vancomycin HCl 250 ml @ 125 mls/hr Q24H IV Last administered on 03/21/25at 16:02; Start 03/21/25 at 14:30; Stop 03/31/25 at 14:29 Hydromorphone HCl 0.5 mg Q4H PRN IVP Last administered on 03/22/25at 01:44; Start 03/21/25 at 20:00; Stop 03/26/25 at 19:59 MP [facility] Mar 22, 2025 07:55
--- NOTE | 2025-03-22 09:30 | NUR ---
ASAD PLACED A/P PATIENT AND DAUGHTER'S REQUEST
--- NOTE | 2025-03-22 13:22 | NUR ---
PTT 49.1; NO CHANGED TO CURRENT HEPARIN DOSE. WILL REPEAT PTT IN 6 HOURS
[2025-03-22] MEDS: CALCIUM CARB 500MG PO PRN (14:53)
--- NOTE | 2025-03-22 19:32 | NUR ---
PTT LAB RESULTS FOR PTT = 59. NO CHANGE IN THE HEPARIN DRIP RATE PER PROTOCOL.
--- NOTE | 2025-03-22 21:05 | NUR ---
MEDS SHIFT ASSESSMENT DONE, PLEASE REFER TO CHART. PT COMPLAINTS OF RT KNEE POST OP PAINS. MEDICATED WITH NORCO FOR PAINS AND DUE MEDS ADMINISTERED, TOLERATED WELL. METOPROLOL DOSE HELD DUE TO LOW BP. KEPT RESTED AND COMFORTABLE IN BED. CALL LIGHT WITHIN REACH. FAMILY AT BEDSIDE. WILL RE-ASSESS PT.
[2025-03-23] VITALS (14 sets, daily range): BP systolic 92–104; BP diastolic 53–68; PULSE 96–120; RESP 18–20; TEMP 97.6–98.3; O2SAT 95–99
[2025-03-23 01:44] LABS: NUCLEATED RED BLOOD CELLS 0.0 % (0.0-0.19); PLATELET COUNT (AUTO) 181.0 K/uL (130-400); RED BLOOD CELL COUNT(AUTO) 2.66 MIL/uL (4.00-5.50); RED CELL DISTRIBUTION WIDTH 15.8 % (11.0-15.5); WHITE BLOOD COUNT (AUTO) 9.6 K/uL (4.8-10.8)
--- NOTE | 2025-03-23 06:30 | NUR ---
MD DR GOMEZ IN TO MAKE ROUNDS ON PT. UPDATED ON PT'S LOW BP AND AFIB WITH HR > 100 BMP. NEW ORDERS RECEIVED, PLEASE REFER TO CPOE.
[2025-03-23] MEDS: 0.9%NACL 1000ML 1,000 ML IV SCH (06:52)
--- NOTE | 2025-03-23 13:09 | PN ---
Postop day 2. Status post revision right total knee arthroplasty Vital signs stable with slight hypotensive readings, afebrile She was able to get out of bed and sit in the chair. She is on a heparin drip Reports moderate pain The dressing has a couple of dry spots of blood, no active bleeding. Drain output of 10 mL in24 hours. The drain is removed. Distal neurovascular exam normal. Plan: Continue with physical therapy, anticoagulation considering transitioning to baby aspirin twice a day once the heparin is stopped. Continue pain management and discharge planning is for the patient to go to assisted. Instructed how to connect and disconnect the dressing for showering Vitals/Labs Vital Signs Date Time Temp Pulse Resp B/P (MAP) Pulse Ox O2 Delivery O2 Flow Rate FiO2 03/23/25 10:20 99 Room Air* 0 21 03/23/25 08:00 98.1 120 19 104/63 Laboratory Tests 03/23/25 01:38 Medications Current Medications Home Med 2 INHALATIONS BID BID IH Last administered on 03/23/25 09:48; Start 03/16/25 at 09:00; Stop 04/15/25 at 08:59 Lidocaine 1 each DAILY TP Last administered on 03/23/25at 09:48; Start 03/16/25 at 09:00; Stop 04/15/25 at 08:59 Azithromycin 250 mg QMOFR PO Last administered on 03/22/25at 14:49; Start 03/18/25 at 09:00; Stop 03/28/25 at 08:59 Acetaminophen 650 mg Q6H PRN PO; Start 03/15/25 at 21:00; Stop 04/14/25 at 20:59 Acetaminophen/ Hydrocodone Bitart 1 tab Q6H PRN PO Last administered on 03/16/25at 21:00; Start 03/15/25 at 21:00; Stop 03/20/25 at 20:59; Status DC Aspirin 81 mg DAILY PO Last administered on 03/16/25at 09:35; Start 03/16/25 at 09:00; Stop 03/16/25 at 16:20; Status DC Hydromorphone HCl 0.5 mg Q4H PRN IVP Last administered on 03/20/25at 13:28; Start 03/15/25 at 21:00; Stop 03/20/25 at 20:59; Status DC Enoxaparin Sodium 30 mg DAILY SQ Last administered on 03/16/25at 09:39; Start 03/16/25 at 09:00; Stop 03/16/25 at 16:24; Status DC Metoprolol Tartrate 5 mg Q5M PRN IV Last administered on 03/18/25at 00:23; Start 03/15/25 at 21:00 Diltiazem HCl 30 mg Q8H5 PO Last administered on 03/16/25at 14:08; Start 03/15/25 at 21:00; Stop 03/16/25 at 16:20; Status DC Furosemide 40 mg Q48H PO Last administered on 03/22/25at 10:48; Start 03/18/25 at 09:00; Stop 04/17/25 at 08:59; Status Hold Dronedarone 400 mg BID PO Last administered on 03/23/25at 09:48; Start 03/15/25 at 21:00; Stop 04/14/25 at 20:59 Ipratropium [place] 0.5 MG BID IH Last administered on 03/17/25at 06:30; Start 03/15/25 at 21:00; Stop 03/17/25 at 11:07; Status DC Lactulose 20 gm DAILY PO Last administered on 03/22/25at 10:48; Start 03/16/25 at 09:00; Stop 04/15/25 at 08:59 Pantoprazole Sodium 40 mg DAILY PO Last administered on 03/23/25at 09:47; Start 03/16/25 at 09:00; Stop 04/15/25 at 08:59 Sennosides 1 tab HS PO Last administered on 03/22/25at 21:04; Start 03/15/25 at 21:00; Stop 04/14/25 at 20:59 Buspirone HCl 10 mg HS PO Last administered on 03/22/25at 21:04; Start 03/15/25 at 21:00; Stop 04/14/25 at 20:59 Melatonin 10 mg HS PO Last administered on 03/22/25at 21:04; Start 03/15/25 at 21:00; Stop 04/14/25 at 20:59 Home Med HS PO Last administered on 03/15/25at 22:59; Start 03/16/25 at 21:00; Stop 03/16/25 at 03:20; Status DC Home Med BID NASAL; Start 03/16/25 at 09:00; Stop 04/15/25 at 08:59 Baclofen 20 mg HS PRN PO Last administered on 03/17/25at 20:48; Start 03/15/25 at 21:00; Stop 04/14/25 at 20:59 Vitamin B Complex 1,000 mcg DAILY PO; Start 03/16/25 at 09:00; Stop 03/17/25 at 02:33; Status DC Dextrose 50 ml AD PRN IV; Start 03/15/25 at 21:00; Stop 04/14/25 at 20:59 Glucagon 1 mg AD PRN IM; Start 03/15/25 at 21:00; Stop 04/14/25 at 20:59 Magnesium Sulfate 50 ml @ 0 mls/hr PROTOCOL PRN IV; Start 03/15/25 at 21:00; Stop 04/14/25 at 20:59 Potassium Chloride 100 ml @ 100 mls/hr AD PRN IV; Start 03/15/25 at 21:00; Stop 04/14/25 at 20:59 Potassium Chloride 20 meq AD PRN PO; Start 03/15/25 at 21:00; Stop 04/14/25 at 20:59 Potassium Chloride 20 meq AD PRN PO; Start 03/15/25 at 21:00; Stop 04/14/25 at 20:59 Potassium Chloride 100 ml @ 50 mls/hr AD PRN IV; Start 03/15/25 at 21:00; Stop 03/16/25 at 06:38; Status DC Metoprolol Tartrate 25 mg TID PO Last administered on 03/15/25at 22:20; Start 03/15/25 at 21:00; Stop 03/16/25 at 06:38; Status DC Multivitamins Therapeutic 1 tab DAILY PO Last administered on 03/23/25at 09:48; Start 03/16/25 at 09:00; Stop 04/15/25 at 08:59 Ondansetron HCl 4 mg Q4HPRN PRN IVP; Start 03/15/25 at 21:00; Stop 03/21/25 at 14:11; Status DC Home Med BIDMEALS PO Last administered on 03/23/25at 09:49; Start 03/16/25 at 21:00; Stop 04/15/25 at 20:59 Ferrous Fumarate 324 mg ONCE ONCE PO Last administered on 03/16/25at 12:03; Start 03/16/25 at 10:00; Stop 03/16/25 at 10:01; Status DC Diltiazem HCl 30 mg Q6H PO Last administered on 03/18/25at 01:57; Start 03/16/25 at 20:00; Stop 03/18/25 at 07:08; Status DC Heparin Sodium (Porcine) *calculation based on ACTUAL B... AD PRN IV Last administered on 03/21/25at 19:55; Start 03/16/25 at 17:30; Stop 04/15/25 at 17:29 Heparin Sodium/ Dextrose 250 ml @ 0 mls/hr Q6H IV Last administered on 03/23/25at 01:38; Start 03/16/25 at 17:30; Stop 04/15/25 at 17:29 Home Med DAILY PO Last administered on 03/23/25at 09:49; Start 03/17/25 at 09:00; Stop 04/16/25 at 08:59 Acetylcysteine 20 mg Q8H5 IH; Start 03/17/25 at 13:00; Stop 03/17/25 at 10:57; Status DC Ipratropium [place] 0.5 MG Q8H5 IH Last administered on 03/23/25at 10:07; Start 03/17/25 at 13:00; Stop 04/16/25 at 12:59 Sodium Chloride 4 ml STK-MED ONCE IH Last administered on 03/17/25at 13:39; Start 03/17/25 at 13:25; Stop 03/17/25 at 13:25; Status DC Acetylcysteine 200 mg Q8H5 IH Last administered on 03/23/25at 10:07; Start 03/17/25 at 14:00; Stop 04/16/25 at 13:59 Cefepime HCl 2 gm Q24H IVPB Last administered on 03/22/25at 17:16; Start 03/17/25 at 15:30; Stop 03/27/25 at 15:29 Sodium Chloride 4 ml STK-MED ONCE IH Last administered on 03/17/25at 18:26; Start 03/17/25 at 17:57; Stop 03/17/25 at 17:57; Status DC Lactulose 20 gm ONCE ONCE PO Last administered on 03/17/25at 20:56; Start 03/17/25 at 20:55; Stop 03/17/25 at 20:56; Status DC Sodium Chloride 4 ml STK-MED ONCE IH Last administered on 03/17/25at 23:29; Start 03/17/25 at 23:05; Stop 03/17/25 at 23:05; Status DC Metoprolol Tartrate 25 mg TID PO Last administered on 03/22/25at 14:49; Start 03/18/25 at 09:00; Stop 03/23/25 at 06:43; Status DC Regadenoson 0.4 mg STK-MED ONCE IVP Last administered on 03/18/25at 09:49; Start 03/18/25 at 09:32; Stop 03/18/25 at 09:32; Status DC Pharmacy Profile Note 1 each ONCE MISC; Start 03/19/25 at 10:30; Stop 03/19/25 at 10:23; Status DC Vancomycin HCl 1 each AD IV; Start 03/19/25 at 10:30; Stop 04/02/25 at 10:29 Vancomycin HCl 250 ml @ 125 mls/hr Q24H IV Last administered on 03/20/25at 13:21; Start 03/19/25 at 11:00; Stop 03/21/25 at 14:14; Status DC Cefazolin Sodium 2 gm ONCALL IVPB Last administered on 03/21/25at 09:06; Start 03/21/25 at 08:00; Stop 03/21/25 at 06:19; Status DC Hydromorphone HCl 0.5 mg Q4H PRN IVP Last administered on 03/20/25at 22:59; Start 03/20/25 at 23:00; Stop 03/21/25 at 14:17; Status DC Acetaminophen/ Hydrocodone Bitart 1 tab Q6H PRN PO; Start 03/20/25 at 23:00; Stop 03/21/25 at 12:57; Status DC Cefazolin Sodium 2 gm ONCALL IVPB; Start 03/21/25 at 06:30; Stop 03/21/25 at 14:11; Status DC Cefazolin Sodium 1 gm STK-MED ONCE .ROUTE; Start 03/21/25 at 07:00; Stop 03/21/25 at 07:00; Status DC Vancomycin HCl 0 ml @ As Directed STK-MED ONCE IV; Start 03/21/25 at 07:00; Stop 03/21/25 at 07:00; Status DC Lidocaine HCl 100 mg STK-MED ONCE .ROUTE; Start 03/21/25 at 07:14; Stop 03/21/25 at 07:14; Status DC Phenylephrine HCl 10 mg STK-MED ONCE IV; Start 03/21/25 at 07:14; Stop 03/21/25 at 07:14; Status DC Ondansetron HCl 4 mg STK-MED ONCE .ROUTE; Start 03/21/25 at 07:14; Stop 03/21/25 at 07:14; Status DC Ropivacaine 150 mg STK-MED ONCE .ROUTE; Start 03/21/25 at 07:14; Stop 03/21/25 at 07:14; Status DC Succinylcholine Chloride 200 mg STK-MED ONCE .ROUTE; Start 03/21/25 at 07:14; Stop 03/21/25 at 07:14; Status DC Ephedrine Sulfate 50 mg STK-MED ONCE .ROUTE; Start 03/21/25 at 07:14; Stop 03/21/25 at 07:15; Status DC Midazolam HCl 2 mg STK-MED ONCE .ROUTE; Start 03/21/25 at 07:15; Stop 03/21/25 at 07:15; Status DC Propofol 200 mg STK-MED ONCE IV; Start 03/21/25 at 07:15; Stop 03/21/25 at 07:15; Status DC Ketamine HCl 50 mg STK-MED ONCE .ROUTE; Start 03/21/25 at 07:15; Stop 03/21/25 at 07:15; Status DC Rocuronium [place] 50 mg STK-MED ONCE .ROUTE; Start 03/21/25 at 07:15; Stop 03/21/25 at 07:15; Status DC Fentanyl Citrate 100 mcg STK-MED ONCE .ROUTE; Start 03/21/25 at 07:15; Stop 03/21/25 at 07:15; Status DC Ondansetron HCl 4 mg AD PRN IVP; Start 03/21/25 at 08:00; Stop 03/21/25 at 10:51; Status DC Metoclopramide HCl 10 mg AD PRN IVP; Start 03/21/25 at 08:00; Stop 03/21/25 at 10:51; Status DC Promethazine HCl 25 mg AD PRN IM; Start 03/21/25 at 08:00; Stop 03/21/25 at 10:51; Status DC Ketorolac Tromethamine 30 mg AD PRN IV; Start 03/21/25 at 08:00; Stop 03/21/25 at 10:51; Status DC Morphine Sulfate 2 mg AD PRN IVP; Start 03/21/25 at 08:00; Stop 03/21/25 at 10:51; Status DC Fentanyl Citrate 25 mcg Q5MIN PRN IVP; Start 03/21/25 at 08:00; Stop 03/21/25 at 10:51; Status DC Naloxone HCl 0.1 mg AD PRN IVP; Start 03/21/25 at 08:00; Stop 03/21/25 at 10:51; Status DC Acetaminophen 100 ml @ As Directed STK-MED ONCE .ROUTE; Start 03/21/25 at 07:49; Stop 03/21/25 at 07:50; Status DC Albumin Human 250 ml @ As Directed STK-MED ONCE IV; Start 03/21/25 at 08:18; Stop 03/21/25 at 08:18; Status DC Albumin Human 250 ml @ As Directed STK-MED ONCE IV; Start 03/21/25 at 08:34; Stop 03/21/25 at 08:34; Status DC Cefazolin Sodium 3 gm STK-MED ONCE IRRIG Last administered on 03/21/25at 09:51; Start 03/21/25 at 09:51; Stop 03/21/25 at 09:56; Status DC Rocuronium [place] 50 mg STK-MED ONCE .ROUTE; Start 03/21/25 at 10:20; Stop 03/21/25 at 10:21; Status DC Fentanyl Citrate 100 mcg STK-MED ONCE .ROUTE; Start 03/21/25 at 10:35; Stop 03/21/25 at 10:35; Status DC Fentanyl Citrate 100 mcg STK-MED ONCE .ROUTE; Start 03/21/25 at 12:23; Stop 03/21/25 at 12:24; Status DC Ondansetron HCl 4 mg AD PRN IVP; Start 03/21/25 at 13:00; Stop 03/21/25 at 14:11; Status DC Metoclopramide HCl 10 mg AD PRN IVP; Start 03/21/25 at 13:00; Stop 03/21/25 at 14:15; Status DC Promethazine HCl 25 mg AD PRN IM; Start 03/21/25 at 13:00; Stop 03/21/25 at 14:11; Status DC Ketorolac Tromethamine 30 mg AD PRN IV; Start 03/21/25 at 13:00; Stop 03/21/25 at 14:11; Status DC Morphine Sulfate 2 mg AD PRN IVP; Start 03/21/25 at 13:00; Stop 03/21/25 at 14:11; Status DC Fentanyl Citrate 25 mcg Q5MIN PRN IVP; Start 03/21/25 at 13:00; Stop 03/21/25 at 14:11; Status DC Naloxone HCl 0.1 mg AD PRN IVP; Start 03/21/25 at 13:00; Stop 03/21/25 at 14:11; Status DC Sodium Chloride 1,000 ml @ 100 mls/hr Q10H IV Last administered on 03/22/25at 10:49; Start 03/21/25 at 13:00; Stop 03/22/25 at 12:59; Status DC Polyethylene Glycol 17 gm DAILY PO Last administered on 03/23/25at 09:48; Start 03/22/25 at 09:00; Stop 04/21/25 at 08:59 Bisacodyl 10 mg DAILY PRN RC; Start 03/24/25 at 13:00; Stop 04/23/25 at 12:59 Ketorolac Tromethamine 15 mg Q6H PRN IV Last administered on 03/22/25at 10:51; Start 03/21/25 at 13:00; Stop 03/26/25 at 12:59 Famotidine 20 mg Q48H PO Last administered on 03/21/25at 20:18; Start 03/21/25 at 21:00; Stop 04/20/25 at 20:59 Ferrous Fumarate 324 mg DAILY PRN PO; Start 03/21/25 at 13:00; Stop 04/20/25 at 12:59 Temazepam 15 mg HS PRN PO; Start 03/21/25 at 13:00; Stop 04/20/25 at 12:59 Ondansetron HCl 4 mg Q6H PRN IVP; Start 03/21/25 at 13:00; Stop 04/20/25 at 12:59 Calcium Carbonate 500 mg Q12H PRN PO Last administered on 03/22/25at 14:53; Start 03/21/25 at 13:00; Stop 04/20/25 at 12:59 Diphenhydramine HCl 25 mg Q6H PRN IVP; Start 03/21/25 at 13:00; Stop 04/20/25 at 12:59 Acetaminophen/ Hydrocodone Bitart Q4H PRN PO Last administered on 03/23/25at 09:53; Start 03/21/25 at 13:00; Stop 03/26/25 at 12:59 Vancomycin HCl 250 ml @ 125 mls/hr Q24H IV Last administered on 03/22/25at 14:50; Start 03/21/25 at 14:30; Stop 03/31/25 at 14:29 Hydromorphone HCl 0.5 mg Q4H PRN IVP Last administered on 03/22/25at 14:50; Start 03/21/25 at 20:00; Stop 03/26/25 at 19:59 Metoprolol Tartrate 12.5 mg BID PO Last administered on 03/23/25at 09:48; Start 03/23/25 at 09:00; Stop 04/22/25 at 08:59 Sodium Chloride 1,000 ml @ 100 mls/hr Q10H IV; Start 03/23/25 at 07:00; Stop 04/22/25 at 06:59 ALEKSANDR GARCIA MD Mar 23, 2025 13:09
[2025-03-23] MEDS ORDERED: PHARMACY COMMUNICATION 1 EACH EACH MISC SCH (16:30)
--- NOTE | 2025-03-23 17:17 | PN ---
Patient was admitted for displacement of prosthetic right knee. She was found to be in atrial fibrillation with rapid ventricular response in the procedure was postponed, having been done on 03/21. She has a complicated arrhythmia history that she underwent attempted catheter ablation of right atrial tachycardia (not atrial fibrillation) on 07/22/2020. This was unsuccessful due to multiple morphologies and diffuse heterogeneous voltage in the right atrium. Unfortunately, she suffered what is most likely a cardioembolic stroke on the day following the procedure. She does have some residual right-sided weakness. She was treated with Xarelto but then developed significant skin ecchymoses and this could discontinued and replaced with aspirin. She was also treated with amiodarone and then later transitioned to Multaq. Addition, her ejection fraction has declined, now at 35-40%. She also has a severely dilated left atrium and right atrium, mild aortic regurgitation, [id number] mitral regurgitation, and moderate tricuspid regurgitation. She has moderate pulmonary hypertension. Currently, she is lying comfortably in bed. She is asymptomatic with regards to her atrial fibrillation although she does say she feels occasional palpitations. Her heart rates are variable, mostly between the low 100s and 120s. Her blood pressures are also borderline, generally in the 90s systolic. She is currently being treated with metoprolol 12.5 mg b.i.d., as she did not tolerate a higher dose. Impression: 1. Persistent atrial fibrillation with poorly controlled ventricular response 2. LV dysfunction with ejection fraction 35-40%, very likely to be tachycardia- mediated 3. Octogenarian with chronic debilitated state 4. Severe biatrial dilatation and valvular lesions as noted above. Plan: 1. At this point, we will accept persistent atrial fibrillation but with improved rate control. Depending upon her clinical course post discharge, it may be most prudent to to consider her as having permanent atrial fibrillation given her debilitated state. 2. Discontinue Multaq 3. Start midodrine mg q.4 hours between the hours of 6:00 a.m. and 6:00 p.m.. 4. Increase metoprolol tartrate to 12.5 mg q.8 hours with eventual increase to 25 mg b.i.d. higher if needed and tolerated. 5. The patient may require a permanent pacemaker and AV node ablation but this will remain to be seen 6. Discontinue heparin and start Eliquis at the mostly appropriate dose of 2.5 mg b.i.d. (age greater than 80, creatinine was 1.5 on one reading, and weight 86 kg. I feel this would be adequate protection given this patient's poor tolerance to anticoagulation in the past 7. Discontinue aspirin- discussed with Dr. Brown. Further recommendations to follow. Vitals/Labs Vital Signs Date Time Temp Pulse Resp B/P (MAP) Pulse Ox O2 Delivery O2 Flow Rate FiO2 03/23/25 13:41 105 19 N/A Room Air 21 03/23/25 10:20 99 0 03/23/25 08:00 98.1 104/63 Laboratory Tests 03/23/25 01:38 MAIN BURNS MD Mar 23, 2025 17:16
--- NOTE | 2025-03-23 17:41 | PN ---
PROBLEM LIST: 1. Mechanical fall without loss of consciousness with dislocation of prior right knee prosthesis. 2. History of paroxysmal atrial fibrillation with persistent atrial fibrillation on this admission. 3. History of CVA, questionably cardioembolic following AFib ablation in 2020 while off anticoagulation. 4. History of right and left lower extremity hematoma, on Xarelto therapy, currently on hold after the fall and for surgery. 5. Acute on chronic kidney disease, stage 3D with a creatinine of 2.85 in February of this year. 6. Cardiomyopathy with EF of 35% to 40% with severely dilated left atrium and right atrium with increased left atrial pressure, mild aortic regurgitation, mild to moderate mitral regurgitation, and moderate tricuspid regurgitation with moderate pulmonary hypertension and trace posterior pericardial effusion by echocardiography this admission. 7. Octogenarian. 8. History of morbid obesity with remote gastric bypass surgery with significant weight loss. 9. 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 10. COPD and bronchiectasis. 11. Chronic lumbosacral spine disease. 12. Status post repair of knee arthroplasty by Dr. Brown on 03/21/2025. 13. Benign Lexiscan Cardiolite with fixed inferior apical thinning with no reversible defects on this admission. The patient was hospitalized because of a fall and fracture of previously placed prosthesis in the knee. The patient's workup has been fairly benign. The patient had a procedure yesterday where she underwent repair of her prosthesis after she was assessed from the cardiac standpoint. Over the last 24 hours, the patient has been stable. She has some incisional discomfort but appears to be compensated. She has been afebrile. Her heart rate has been in the 80 to 110 per minute range. Respiratory rate is 17 to 18. Blood pressure is 105 to 110 systolic. She is saturating at 95% on 2 L of nasal cannula. The patient is currently maintained on Dulcolax, MiraLax, famotidine, Dilaudid, vancomycin, hydrocodone, Benadryl, calcium, ondansetron, iron, Toradol, metoprolol, furosemide, azithromycin, Maxipime, Mucomyst, Atrovent, subcu heparin, multivitamins, pantoprazole, lactulose, and additional p.r.n. medications. Laboratory studies this morning revealed a white count of 12.1, H and H of 9.8 and 30.6 respectively. The platelet count is 198,000. The patient's chemistries revealed a sodium of 137, potassium 4.3, chloride 104, CO2 of 28, BUN is down to 30, creatinine is down to 1.4, and the GFR is up to 37. The random glucose is 128, the calcium is 7.8. The patient's albumin yesterday was 2.3 consistent with significant protein malnutrition. At this point, the patient appears to be compensated from the cardiac standpoint. I urge resumption of her anticoagulation as soon as possible. This will be checked with Orthopedic Surgery. The patient will be monitored because of her atrial fibrillation. We will continue the current supportive measures. TID: [id number] RECEIPT: [id number]
--- NOTE | 2025-03-23 20:18 | PN ---
SUBJECTIVE: The patient denies any chest pain or shortness of breath at this time. OBJECTIVE: VITAL SIGNS: The patient's blood pressure is 106/60, pulse is 105, and respirations 16. LUNGS: The patient has decreased breath sounds at the bases. No wheezing or rhonchi. HEART: Regular rate and rhythm. ABDOMEN: Soft and nontender. ASSESSMENT AND PLAN: * Status post revision right knee arthroplasty, stable. * Anemia. Hemoglobin is stable at this time. * Atrial fibrillation, the patient is on baby aspirin at this time. * Urinary tract infection. The patient is on antibiotics. * History of coronary artery disease, stable. The patient's metoprolol will be decreased to 12.5 mg b.i.d. and hold if the blood pressure is less than 100. TID: [id number] RECEIPT: [id number]
--- NOTE | 2025-03-23 20:18 | PN ---
SUBJECTIVE: The patient is status post right knee prosthesis revision, comfortable, afebrile, having some intermittent knee pain. OBJECTIVE: GENERAL: She is sitting comfortably in a chair, currently awake, alert, oriented in person, time and plate. Not in distress. VITAL SIGNS: Vital signs in the chart. HEENT: Normocephalic, atraumatic. LUNGS: Clear to auscultation. HEART: S1, S2 are distant. ABDOMEN: Soft, nontender. EXTREMITIES: No clubbing or cyanosis. LABORATORY DATA: WBC count 12.1, hemoglobin 9.8, platelets 198. Sodium 137, potassium 4.3, BUN 30, creatinine 1.4, glucose 128. ASSESSMENT AND PLAN: 1. Status post right knee prosthesis revision. Continue with deep vein thrombosis prophylaxis, gastrointestinal prophylaxis, pulmonary prophylaxis. 2. Coronary artery disease, stable. 3. Atrial fibrillation, chronic, rate controlled. Anticoagulation, Cardiology is requesting to restart the patient on anticoagulation with Eliquis. We are going to consult Dr. Diaz to determine what kind of anticoagulation the patient can be placed on. Since the patient has had an episode of protein C/protein S deficiency event, while on Xarelto. 4. Anemia. Continue to monitor. 5. Urinary tract infection. Continue vancomycin and cefepime. 6. Chronic obstructive pulmonary disease with bronchiectasis, controlled. Follow up in a.m. with results. DOS: 03/22/2025 TID: [id number] RECEIPT: [id number]
[2025-03-24] VITALS (14 sets, daily range): BP systolic 93–116; BP diastolic 53–78; PULSE 85–119; RESP 16–20; TEMP 97.6–98.3; O2SAT 94–98
[2025-03-24 06:34] LABS: NUCLEATED RED BLOOD CELLS 0.0 % (0.0-0.19); PLATELET COUNT (AUTO) 205.0 K/uL (130-400); RED BLOOD CELL COUNT(AUTO) 2.67 MIL/uL (4.00-5.50); RED CELL DISTRIBUTION WIDTH 15.6 % (11.0-15.5); WHITE BLOOD COUNT (AUTO) 7.6 K/uL (4.8-10.8)
[2025-03-24] MEDS: 0.9%NACL 1000ML 1,000 ML IV SCH (06:45)
[2025-03-24 06:54] LABS: ASPARTATE AMINOTRANSFERASE 13.0 U/L (10-37); CREATININE 1.8 mg/dL (0.5-1.0); GLOMERULAR FILTR. RATE CALC 28.0 mL/min (>90); GLUCOSE,RANDOM 86.0 mg/dL (70-105); SODIUM SERUM 136.0 mmol/L (136-145); TOTAL PROTEIN, SERUM 5.9 g/dL (6.0-8.3); UREA NITROGEN, BLOOD 35.0 mg/dL (7-18)
--- NOTE | 2025-03-24 08:18 | NUR ---
PATIENT/DAUGHTER REQUESTING FOR PUREWICK CATHETER TO BE PLACED THEY DON'T WANT THE BEDPAN OR BEDSIDE COMMODE. TEACHING DONE RE: ORTHO PATIENT AND NEGATIVE IMPACT OF PUREWICK CATHETERS
--- NOTE | 2025-03-24 12:25 | PN ---
SUBJECTIVE: The patient denies any chest pain or shortness of breath. At this time the patient's IV fluids will be decreased to 60 mL per hour. The patient is started on metoprolol 12.5 mg 3 times a day which I kept on hold for blood pressure below 100. The patient is also started on midodrine 10 mg 4 times a day. REVIEW OF SYSTEMS: No chest pain or shortness of breath. OBJECTIVE: VITAL SIGNS: Significant for blood pressure is around 90/60, pulse is up to 106, respirations 16. LUNGS: The patient has decreased breath sounds bilaterally at the bases. HEART: Irregularly irregular. ABDOMEN: Soft and nontender. EXTREMITIES: No edema. Right knee dressing in place. ASSESSMENT AND PLAN: Atrial fibrillation, tachycardia. The patient is . The patient is admitted in for hypertension and the patient's IV fluids will be decreased to 60 mL per hour and right knee prosthesis. The patient is continuing with the present medications. Condition discussed. TID: [id number] RECEIPT: [id number]
--- NOTE | 2025-03-24 12:53 | PN ---
This is an 84-year-old female with atrial arrhythmias including atrial fibrillation and right atrial tachycardia status post attempted catheter ablation in July 2020 with cardioembolic stroke on the day following the procedure, orthostatic hypotension, chronic kidney disease, recent spontaneous hematoma to her hand and lower extremity while on Xarelto. She transferred from [facility] to undergo surgery for dislocation of right knee arthroplasty which was performed on 03/21/2025. She persistent atrial fibrillation which has been difficult to rate control in the context of hypotension. Yesterday, midodrine was titrated to 10 mg 4 times daily, and metoprolol tartrate increased to 12.5 mg every 8 hours. Unfortunately doses of metoprolol has been held due to hypotension. Echocardiogram 03/17/2025 shows an ejection fraction of 35-40% with septal hypokinesis, severely dilated left atrium, atrial septum is bowed towards the right consistent with elevated left atrial pressures, right atrium severely dilated, mild aortic valve regurgitation, [id number] mitral valve regurgitation, moderate tricuspid valve regurgitation, trace posterior pericardial effusion. Lexiscan 03/18/2025 shows inferior hypokinesis and apical akinesis with fixed inferior apical thinning defect, no reversible ischemia, ejection fraction 63%. She is currently in atrial fibrillation with ventricular rates in the 110s to 120s. Most recent blood pressure is 114/78. White blood count 7.6, hemoglobin 8.9, hematocrit 28.0, platelets 205, creatinine 1.8 Up from 1.4, potassium 3.9, magnesium 1.70. She reports significant weakness and fatigue, as well as poor appetite. She attempted to go to bathroom but required assistance in doing so. She is now using a bedpan in order to urinate. She dizziness with going from lying to sitting and is afraid of falling. On exam, she appears fatigued, irregularly irregular rhythm, bilateral rhonchi, trace bilateral lower extremity edema is noted. Assessment: 1. Persistent atrial fibrillation with inadequate rate control. 2. Dilated cardiomyopathy, likely tachycardia mediated. 3. Dislocation of right knee arthroplasty status post surgical repair 03/21/2025. 4. Orthostatic hypotension. 5. Persistent cough. 6. Hypomagnesemia. 7. Chronic kidney disease. Plan: Discussed with Dr. Thomas. 1. She has persistent atrial fibrillation with inadequate rate control. Titration of metoprolol tartrate is limited by hypotension. She has been placed on midodrine 10 mg 4 times daily with persistently low blood pressure readings. A nursing communication has been placed to hold metoprolol tartrate for systolic blood pressures of less than 100, otherwise administer. 2. She is not a candidate for digoxin secondary to chronic kidney disease. 3. At this point we recommend insertion of biventricular pacemaker with AV node ablation. The procedure was discussed with the patient and her family members in detail and she wishes to proceed. 4. We will begin holding Eliquis 2.5 mg now. The procedure is tentatively scheduled on 03/27/2025. 5. Order chest x-ray due to persistent cough with bilateral rhonchi on exam. Vitals/Labs Vital Signs Date Time Temp Pulse Resp B/P (MAP) Pulse Ox O2 Delivery O2 Flow Rate FiO2 03/24/25 10:45 96 Room Air* 0 21 03/24/25 08:00 98.1 85 18 114/78 Laboratory Tests 03/24/25 06:15 BRICE ORO PAC Mar 24, 2025 12:53
--- NOTE | 2025-03-24 17:05 | NUR ---
SPOKE TO DAUGHTER RE: CONSENT FOR BIVENTRICULAR PACEMAKER WITH AV NODE ABLATION. STATED JULIAN LANE OF DR BURNS STATED MD WILL BE BY LATER TODAY TO EXPLAIN PROCEDURE. DAUGHTER ALSO STATED WAS TOLD TO HOLD OFF ON PHYSICAL THERAPY D/T A. FIB
--- NOTE | 2025-03-24 20:30 | NUR ---
MEDS SHIFT ASSESSMENT DONE, PLEASE REFER TO CHART. DUE MEDS ADMINISTERED, TOLERATED WELL. STILL UNABLE TO HAVE A BM. DULCOLAX SUPPOSITORY ADMINISTERED. KEPT COMFORTABLE IN BED. CALL LIGHT WITHIN REACH. INSTRUCTED TO CALL FOR STAFF WHEN READY FOR BED LAZARO. FAMILY AT BEDSIDE.
--- NOTE | 2025-03-24 22:26 | NUR ---
PAIN NO BM STILL BUT PT CLAIMS SHE IS PASSING GAS. PCP JUST FINISHED GIVING PT A BED BATH. PT CLAIMS OF RT KNEE POST OP PAINS. PT REQUESTED DILAUDID IV, MEDICATED PT. KEPT COMFORTABLE IN BED. WILL RE-ASSESS PT.
[2025-03-25] VITALS (11 sets, daily range): BP systolic 104–121; BP diastolic 67–85; PULSE 65–123; RESP 18–20; TEMP 97.7–98.4; O2SAT 93–96
--- NOTE | 2025-03-25 05:31 | NUR ---
MEDS PT IS ALREADY AWAKE. PT'S DAUGHTER VERBALIZES THAT PT HAD BEEN CONFUSED AFTER WAKING UP. PT'S DAUGHTER CLAIMS THAT PT GOT CONFUSED WITH DILAUDID BUT WANTS IT TO SLEEP. PT STILL FOLLOWS COMMAND AND NON-COMBATIVE BUT IS DISORIENTED. DUE MEDS ADMINISTERED, TOLERATED WELL. EXPLAINED THAT PT WILL NOT BE GIVEN DILAUDID FOR PAINS FROM NOW DUE TO SIDE EFFECT ON PT.
--- NOTE | 2025-03-25 06:25 | HMCIMG ---
EXAM: CR Chest, 1 View. CLINICAL HISTORY: cough COMPARISON: CR and CT chest dated 03/17/2025 FINDINGS: LUNGS: Mild bibasilar atelectasis. The lungs show no infiltrate or other acute finding. PLEURAL SPACES: No evidence of pleural effusion or pneumothorax. MEDIASTINUM: Stable cardiomegaly. Atherosclerotic aortic arch. Elevated right hemidiaphragm. BONES: No acute osseous abnormality. IMPRESSION: 1. No acute cardiopulmonary findings. 2. Stable cardiomegaly. 3. Mild bibasilar atelectasis. No significant interval changes since the prior. /[place]
--- NOTE | 2025-03-25 09:04 | PN ---
This is an 84-year-old female with atrial arrhythmias including atrial fibrillation and right atrial tachycardia status post attempted catheter ablation in July 2020 with cardioembolic stroke on the day following the procedure, orthostatic hypotension, chronic kidney disease, recent spontaneous hematoma to her hand and lower extremity while on Xarelto. She transferred from [facility] to undergo surgery for dislocation of right knee arthroplasty which was performed on 03/21/2025. She persistent atrial fibrillation which has been difficult to rate control in the context of hypotension. Echocardiogram 03/17/2025 shows an ejection fraction of 35-40% with septal hypokinesis, severely dilated left atrium, atrial septum is bowed towards the right consistent with elevated left atrial pressures, right atrium severely dilated, mild aortic valve regurgitation, [id number] mitral valve regurgitation, moderate tricuspid valve regurgitation, trace posterior pericardial effusion. Lexiscan 03/18/2025 shows inferior hypokinesis and apical akinesis with fixed inferior apical thinning defect, no reversible ischemia, ejection fraction 63%. She is currently in atrial fibrillation with ventricular rates in the 110s to 120s. Most recent blood pressure is 113/67. She reports persistent weakness, fatigue and dizziness with going from lying to sitting and sitting to standing. On exam, she appears fatigued, irregularly irregular rhythm, bilateral rhonchi, trace bilateral lower extremity edema is noted. Assessment: 1. Persistent atrial fibrillation with inadequate rate control. 2. Dilated cardiomyopathy, likely tachycardia mediated. 3. Dislocation of right knee arthroplasty status post surgical repair 03/21/2025. 4. Orthostatic hypotension. 5. Persistent cough. 6. Hypomagnesemia. 7. Chronic kidney disease. Plan: Discussed with Dr. Thomas. 1. She is tentatively scheduled for biventricular pacemaker insertion with AV node ablation 03/27/2025. For now continue metoprolol tartrate 12.5 mg every 8 hours for rate control. 2. Start Lovenox 90 mg once daily. Lovenox will be held the morning of procedure. 3. Continue midodrine 10 mg every 4 hours as directed. 4. We will follow the patient. Vitals/Labs Vital Signs Date Time Temp Pulse Resp B/P (MAP) Pulse Ox O2 Delivery O2 Flow Rate FiO2 03/25/25 08:00 98.1 114 18 113/67 93 Room Air 03/25/25 07:14 21 11/10/25 04:00 2.0 BRICE ORO Mar 25, 2025 09:04
[2025-03-25] MEDS: ENOXAPARIN SODIUM 100 MG/1 ML SQ SCH (10:29)
--- NOTE | 2025-03-25 14:12 | CONS ---
CONSULT REFERRING PHYSICIAN: Dr. Jackson REASON FOR CONSULT: Coagulopathy HISTORY HPI: The patient was transferred from [facility] for assessment and treatment of right prosthetic knee dislocation post fall. The patient was evaluated by Dr. Armstrong, Dr. Moura, and Dr. Milian at [facility] and they referred the patient to a higher level of care facility with an orthopedic that can perform surgery on her knee. The patient had sustained a recent fall from ground level with trauma of her right knee and a dislocation she was evaluated initially in [facility] management with analgesics and immobilizer. After lengthy process of consulting different orthopedics, we pr esented the case to Dr. Brown who agreed to accept the patient and manage the dislocation of the left knee. Patient was seen and evaluated at bedside. She denies chest pain or shortness of breath or dizziness. She has bilateral lower extremity edema, denies easy bruising or bleeding. PMH: Type 2 diabetes, hypertension, dyslipidemia, atrial fibrillation, not on anticoagulation due to protein C and protein S deficiency. The patient was on Xarelto and she developed warfarin ischemia like process that was resolved with replacement of protein C and S. After that, Dr. Diaz, Hematology, has recommended the patient to be off oral anticoagulation. COPD, bronchiectasis. Chronic back pain. PSH: Status post right total knee arthroplasty, status post gastric bypass in remote past. ALLERGIES: Coded Allergies: codeine (Unverified Allergy, Unknown, HALLUCINATION, 03/16/25) CURRENT MEDS: Current Medications Medications (Trade) Dose Ordered Sig/Asif Route PRN Reason Start Time Stop Time Status Last Admin Vancomycin HCl (Vancomycin 1g/ 250ml Kit) 1 gm ONCALL ONCE IV 03/27/25 06:00 03/27/25 06:01 Enoxaparin Sodium (Lovenox) 90 mg Q24H SQ 03/25/25 09:00 04/24/25 08:59 03/25/25 10:29 REVIEW OF SYSTEMS CONSTITUTIONAL: No FEVER, No SWEATS, No CHILLS, No WEIGHT LOSS RESPIRATORY: No COUGH, No CHEST PAIN, No SHORTNESS OF BREATH, No HEMOPTYSIS CARDIOVASCULAR: No PALPATIONS, No SYNCOPE HEMATOLOGIC/LYMPHATIC: No EASY BRUISING, No CERVICAL ADENOPATHY, No AXILLARY ADENOPATHY, No INGUINAL ADENOPATHY PHYSICAL EXAM VITALS: Vital Signs Date Time Temp Pulse Resp B/P (MAP) Pulse Ox O2 Delivery O2 Flow Rate FiO2 03/25/25 13:49 111 20 N/A Room Air 21 03/25/25 12:00 98.1 121/85 95 03/25/25 08:00 0 GENERAL: ALERT, ORIENTED, APPEARS-NO ACUTE DISTRESS RESPIRATORY: LUNGS CLEAR-AUSC/PERCUS GASTROINTESTINAL: No ABDOMEN IS SOFT, No TENDER, No DISTENDED, No HEPATOSPLENOMEGALY, No BOWEL SOUNDS PRESENT, No PALPABLE MASSES HEMATOLOGY/LYMPHATIC: No CERVICAL ADENOPATHY, No SUPRACLAVICULR ADENOPATHY, No AXILLARY ADENOPATHY, No INGUINAL ADENOPATHY DIAGNOSTIC STUDIES PATIENT: LORE OCONNELL MR#: [id number] : 1940 SEX: F AGE: 84 LOCATION: [facility] ORDER 6 STATUS: ADM IN REPORT#: [id number] SERVICE REASON: Afib, preop ORDERING PHYSICIAN: BOYD NORIEGA MD PROCEDURE: ECHO CMP - ECHO 2-D COMPLETE APPROVED REPORT EXAM: Two-dimensional and M-mode echocardiogram with Doppler and color Doppler. INDICATION ICD: Atrial Fibrillation Pre-Op 2D Dimensions RVDd 4.7 cm LVEF(%) 54.0 (>50%) LVED Vol(simp.) 73.0 mL IVSd 0.8 (0.7-1.1cm) FS(%) 28 % LVES Vol(simp.) 48.0 mL LVDd 5.0 (3.8-5.6cm) LA (2D) 5.7 (1.6-4.0cm) LVEF(%, simp.) 35 % PWd 0.9 (0.7-1.1cm) Ao Root(2D) 3.0 (2.0-3.7cm) LA ESV INDEX (BP) 94.87 mL/m2 LVDs 3.6 (2.5-4.0cm) LVOT diam 2.1 (1.8-2.4cm) IVC diam 2.6 cm Deformation Strain Apical 4 -5.0 % Apical 2 -7.3 % Apical 3 -9.8 % Global Strain -7.4 % Aortic Valve AoV Vmax 1.4 m/s Ao Peak GR 8.3 mmHg LVOT Vmax 0.8 m/s AoV VTI 0.2 m Ao Mean GR 5.6 mmHg LVOT VTI 0.14 m VERONICA (VMAX) 2.03 cm2 Al P1/2T 300 ms VERONICA (VTI) 2.2 cm2 Mitral Valve MV E Vmax 107.5 cm/s DECEL Time 163 ms P 1/2 T 65 ms MVA (PHT) 3.4 cm2 TDI E/E' Medial 18.5 E/E' Lateral 13.4 Medial E' Peak V 5.82 cm/s Lateral E' Peak V 8.01 cm/s Pulmonary Valve PV Vmax 0.9 m/s PV VTI 0.13 m PV Mean GR 1.9 mmHg PV Peak GR 3.2 mmHg Tricuspid Valve TR Vmax 2.7 m/s RAP (EST) 15 mmHg RVSP 51.4 mmHg TR Peak GR 36.4 mmHg Left Ventricle The left ventricle is normal size. Septal hypokinesis. Global strain of -7%. There is normal left ventricular wall thickness. LVEF is 35-40%. The LV diastolic function was unable to be assessed due to atrial arrhythmia. Right Ventricle The right ventricle is mildly dilated. Right ventricular systolic function is moderately reduced. Atria The left atrium is severely dilated. Atrial septum is bowed toward the right, consistent with elevated left atrial pressures. The right atrium is severely dilated. Aortic Valve The aortic valve is normal in structure. Mild aortic regurgitation. There is no aortic valvular stenosis. Mitral Valve Mitral valve leaflets are calcified but open well. Mitral regurgitation is mild to moderate. There is no mitral valve stenosis. Tricuspid Valve The tricuspid valve is normal in structure. There is moderate tricuspid valve regurgitation noted, RVSP 52mmHg. Pulmonic Valve The pulmonary valve is normal in structure. There is no pulmonic valvular regurgitation. Great Vessels The aortic root is normal in size. IVC is dilated and collapses <50% with inspiration. Pericardium Trace posterior pericardial effusion. There are no echocardiographic indications for cardiac tamponade. Conclusion LVEF is 35-40%. The left atrium is severely dilated. The right atrium is severely dilated. Atrial septum is bowed toward the right, consistent with elevated left atrial pressures. Mild aortic regurgitation. Mitral regurgitation is mild to moderate. There is moderate tricuspid valve regurgitation noted, RVSP 52mmHg. Trace posterior pericardial effusion. There are no echocardiographic indications for cardiac tamponade. DICTATED BY: BOYD NORIEGA MD DATE: 03/17/25 1140 ELECTRONICALLY SIGNED BY: BOYD NORIEGA MD DATE: 03/17/25 1325 PATIENT: LORE OCONNELL MR#: [id number] : 1940 SEX: F AGE: 84 LOCATION: [facility] ORDER 07 STATUS: ADM IN REPORT#: [id number] SERVICE 08 REASON: PERSISTENT AFIB RVR ORDERING PHYSICIAN: Cheryl THOMPSON II, MD PROCEDURE: CARD MARCO - NM LEXISCAN CARDIOLITE APPROVED REPORT Height: 5 ft 10in Weight: 180 lbs TEST INDICATIONS AFIB & RVR The imaging protocol used to acquire images was Rest Tc-99m/stress Tc-99m 1 day Consent: The procedure was explained and understood by the patient. Informerd consent was witnessed by Marylin Turcios RN First, low dose rest was performed then high dose stress. RESTING DATA: The resting ekg shows: Atrial Fibrillation Rest SPECT myocardial perfusion imaging was performed in supine position minutes following the intravenous injection of 10 mCi of Tc-99 Sestamibi. Time of rest injection: 12:08: Date: 03/18/2025 Time of rest imagin:30: Date: 03/18/2025 PHARMACOLOGIC STRESS: Pharmacologic stress test was performed by injecting regadenoson 0.4 mg IV push followed by the intravenous injection of 27.5 mCi of Tc-99 Sestamibi. Time of stress injection: 15:03: Date: 03/18/2025 Time of stress imagin:30: Date: 03/18/2025 The images were gated to evaluate regional wall motion and calculate left ventricular ejection fraction. STRESS DETAILS Reason for Termination: Infusion complete Stress Symptoms: Dyspnea Max HR Achieved: 136 bpm % of APMHR Achieved: 117 Max Blood Pressure: 156/62 mmHg Stress ECG: Atrial Fibrillation LEFT VENTRICLE Size: The left ventricular size is normal. Systolic Function:The left ventricular systolic function is borderline decreased. Wall Motion: Inferior hypokinesis. Apical akinesis. The left ventricular ejection fraction was calculated to be 63%.TID = . LV PERFUSION Fixed infero-apical thinning defect. No reversible ischemia identified. Conclusion The left ventricular size is normal. The left ventricular systolic function is borderline decreased. Inferior hypokinesis. Apical akinesis. Fixed infero-apical thinning defect. No reversible ischemia identified. The left ventricular ejection fraction was calculated to be 63%. DICTATED BY: Cheryl THOMPSON II, MD DATE: 03/18/25 1251 ELECTRONICALLY SIGNED BY: Cheryl THOMPSON II, MD DATE: 03/19/25 0709 IMPRESSION 1. Anemia 2. Elevated PTT 3. A fib currently on lovenox 4. s/p revised total knee arthroplasty PLAN 1. Peripheral blood smear shows microcytic hypochromic anemia consistent with iron deficiency anemia . There is no teardrop cell or Pelger Huet cell. Rouleaux formation is present .No band cells observed. Platelet morphology and count within normal limits. Will request Iron panel and SPEP & MADELEINE. 2. For mixing studies to be done for elevated PTT, Lovenox to be held at least for 48 hours. GREGORY PRINCE MD Mar 25, 2025 14:12
[2025-03-25 15:23] LABS: % IRON SATURATION 18.5 % (22-44); IRON, SERUM 34.0 mcg/dL (50-170)
--- NOTE | 2025-03-25 17:48 | PN ---
Postop day 4. Vital signs stable, afebrile. The patient has been saturated low for this reason was placed on O2 nasal cannula. She was able to stand today but she has significant pain to the knee as well as significant shortness of breath reason why she was placed back in bed. Patient is scheduled for placement of pacemaker tentatively for tomorrow but is going to be done until Tuesday. She is awake, alert and oriented and in no distress. She is wearing an Esmarch cannula. Her respiratory rate is adequate and the effort is adequate also. Examination of the right knee shows intact dressing, dry, there is no calf edema or tenderness. Distal neurovascular exam normal. Assessment: Status post revision right total knee arthroplasty. Plan: Continue with physical therapy as tolerated and awaiting for results after the pacemaker placement. Anticoagulation was suspended and she is wearing the SCDs as ordered. Repeated to follow Vitals/Labs Vital Signs Date Time Temp Pulse Resp B/P (MAP) Pulse Ox O2 Delivery O2 Flow Rate FiO2 03/25/25 16:00 98.4 86 18 120/76 98 Room Air 03/25/25 13:49 21 03/25/25 08:00 0 Medications Current Medications Home Med 2 INHALATIONS BID BID IH Last administered on 03/25/25at 08:27; Start 03/16/25 at 09:00; Stop 04/15/25 at 08:59 Lidocaine 1 each DAILY TP Last administered on 03/25/25at 08:28; Start 03/16/25 at 09:00; Stop 04/15/25 at 08:59 Azithromycin 250 mg QMOFR PO Last administered on 03/25/25at 08:27; Start 03/18/25 at 09:00; Stop 03/28/25 at 08:59 Acetaminophen 650 mg Q6H PRN PO; Start 03/15/25 at 21:00; Stop 04/14/25 at 20:59 Acetaminophen/ Hydrocodone Bitart 1 tab Q6H PRN PO Last administered on 03/16/25at 21:00; Start 03/15/25 at 21:00; Stop 03/20/25 at 20:59; Status DC Aspirin 81 mg DAILY PO Last administered on 03/16/25at 09:35; Start 03/16/25 at 09:00; Stop 03/16/25 at 16:20; Status DC Hydromorphone HCl 0.5 mg Q4H PRN IVP Last administered on 03/20/25at 13:28; Start 03/15/25 at 21:00; Stop 03/20/25 at 20:59; Status DC Enoxaparin Sodium 30 mg DAILY SQ Last administered on 03/16/25at 09:39; Start 03/16/25 at 09:00; Stop 03/16/25 at 16:24; Status DC Metoprolol Tartrate 5 mg Q5M PRN IV Last administered on 03/18/25at 00:23; Star t 03/15/25 at 21:00 Diltiazem HCl 30 mg Q8H5 PO Last administered on 03/16/25at 14:08; Start 03/15/25 at 21:00; Stop 03/16/25 at 16:20; Status DC Furosemide 40 mg Q48H PO Last administered on 03/22/25at 10:48; Start 03/18/25 at 09:00; Stop 03/25/25 at 12:28; Status DC Dronedarone 400 mg BID PO Last administered on 03/23/25at 09:48; Start 03/15/25 at 21:00; Stop 03/23/25 at 17:18; Status DC Ipratropium [place] 0.5 MG BID IH Last administered on 03/17/25at 06:30; Start 03/15/25 at 21:00; Stop 03/17/25 at 11:07; Status DC Lactulose 20 gm DAILY PO Last administered on 03/25/25at 08:27; Start 03/16/25 at 09:00; Stop 04/15/25 at 08:59 Pantoprazole Sodium 40 mg DAILY PO Last administered on 03/25/25at 08:27; Start 03/16/25 at 09:00; Stop 04/15/25 at 08:59 Sennosides 1 tab HS PO Last administered on 03/24/25at 20:30; Start 03/15/25 at 21:00; Stop 04/14/25 at 20:59 Buspirone HCl 10 mg HS PO Last administered on 03/24/25at 20:30; Start 03/15/25 at 21:00; Stop 04/14/25 at 20:59 Melatonin 10 mg HS PO Last administered on 03/24/25at 20:30; Start 03/15/25 at 21:00; Stop 04/14/25 at 20:59 Home Med HS PO Last administered on 03/15/25at 22:59; Start 03/16/25 at 21:00; Stop 03/16/25 at 03:20; Status DC Home Med BID NASAL; Start 03/16/25 at 09:00; Stop 04/15/25 at 08:59 Baclofen 20 mg HS PRN PO Last administered on 03/17/25at 20:48; Start 03/15/25 at 21:00; Stop 04/14/25 at 20:59 Vitamin B Complex 1,000 mcg DAILY PO; Start 03/16/25 at 09:00; Stop 03/17/25 at 02:33; Status DC Dextrose 50 ml AD PRN IV; Start 03/15/25 at 21:00; Stop 04/14/25 at 20:59 Glucagon 1 mg AD PRN IM; Start 03/15/25 at 21:00; Stop 04/14/25 at 20:59 Magnesium Sulfate 50 ml @ 0 mls/hr PROTOCOL PRN IV; Start 03/15/25 at 21:00; Stop 04/14/25 at 20:59 Potassium Chloride 100 ml @ 100 mls/hr AD PRN IV; Start 03/15/25 at 21:00; Stop 04/14/25 at 20:59 Potassium Chloride 20 meq AD PRN PO; Start 03/15/25 at 21:00; Stop 04/14/25 at 20:59 Potassium Chloride 20 meq AD PRN PO; Start 03/15/25 at 21:00; Stop 04/14/25 at 20:59 Potassium Chloride 100 ml @ 50 mls/hr AD PRN IV; Start 03/15/25 at 21:00; Stop 03/16/25 at 06:38; Status DC Metoprolol Tartrate 25 mg TID PO Last administered on 03/15/25at 22:20; Start 03/15/25 at 21:00; Stop 03/16/25 at 06:38; Status DC Multivitamins Therapeutic 1 tab DAILY PO Last administered on 03/25/25at 08:28; Start 03/16/25 at 09:00; Stop 04/15/25 at 08:59 Ondansetron HCl 4 mg Q4HPRN PRN IVP; Start 03/15/25 at 21:00; Stop 03/21/25 at 14:11; Status DC Home Med BIDMEALS PO Last administered on 03/25/25at 08:26; Start 03/16/25 at 21:00; Stop 04/15/25 at 20:59 Ferrous Fumarate 324 mg ONCE ONCE PO Last administered on 03/16/25at 12:03; St art 03/16/25 at 10:00; Stop 03/16/25 at 10:01; Status DC Diltiazem HCl 30 mg Q6H PO Last administered on 03/18/25at 01:57; Start 03/16/25 at 20:00; Stop 03/18/25 at 07:08; Status DC Heparin Sodium (Porcine) *calculation based on ACTUAL B... AD PRN IV Last administered on 03/21/25at 19:55; Start 03/16/25 at 17:30; Stop 03/23/25 at 21:16; Status DC Heparin Sodium/ Dextrose 250 ml @ 0 mls/hr Q6H IV Last administered on 03/23/25at 01:38; Start 03/16/25 at 17:30; Stop 03/23/25 at 21:16; Status DC Home Med DAILY PO Last administered on 03/25/25at 08:27; Start 03/17/25 at 09:00; Stop 04/16/25 at 08:59 Acetylcysteine 20 mg Q8H5 IH; Start 03/17/25 at 13:00; Stop 03/17/25 at 10:57; Status DC Ipratropium [place] 0.5 MG Q8H5 IH Last administered on 03/25/25at 13:50; Start 03/17/25 at 13:00; Stop 04/16/25 at 12:59 Sodium Chloride 4 ml STK-MED ONCE IH Last administered on 03/17/25at 13:39; Star t 03/17/25 at 13:25; Stop 03/17/25 at 13:25; Status DC Acetylcysteine 200 mg Q8H5 IH Last administered on 03/25/25at 06:58; Start 03/17/25 at 14:00; Stop 03/25/25 at 11:01; Status DC Cefepime HCl 2 gm Q24H IVPB Last administered on 03/25/25at 15:36; Start 03/17/25 at 15:30; Stop 03/27/25 at 15:29 Sodium Chloride 4 ml STK-MED ONCE IH Last administered on 03/17/25at 18:26; Start 03/17/25 at 17:57; Stop 03/17/25 at 17:57; Status DC Lactulose 20 gm ONCE ONCE PO Last administered on 03/17/25at 20:56; Start 05/17/24 at 20:55; Stop 03/17/25 at 20:56; Status DC Sodium Chloride 4 ml STK-MED ONCE IH Last administered on 03/17/25at 23:29; Start 03/17/25 at 23:05; Stop 03/17/25 at 23:05; Status DC Metoprolol Tartrate 25 mg TID PO Last administered on 03/22/25at 14:49; Start 03/18/25 at 09:00; Stop 03/23/25 at 06:43; Status DC Regadenoson 0.4 mg STK-MED ONCE IVP Last administered on 03/18/25at 09:49; Start 03/18/25 at 09:32; Stop 03/18/25 at 09:32; Status DC Pharmacy Profile Note 1 each ONCE MISC; Start 03/19/25 at 10:30; Stop 03/19/25 at 10:23; Status DC Vancomycin HCl 1 each AD IV; Start 03/19/25 at 10:30; Stop 04/02/25 at 10:29 Vancomycin HCl 250 ml @ 125 mls/hr Q24H IV Last administered on 03/20/25at 13:21; Start 03/19/25 at 11:00; Stop 03/21/25 at 14:14; Status DC Cefazolin Sodium 2 gm ONCALL IVPB Last administered on 03/21/25at 09:06; Start 03/21/25 at 08:00; Stop 03/21/25 at 06:19; Status DC Hydromorphone HCl 0.5 mg Q4H PRN IVP Last administered on 03/20/25at 22:59; Start 03/20/25 at 23:00; Stop 03/21/25 at 14:17; Status DC Acetaminophen/ Hydrocodone Bitart 1 tab Q6H PRN PO; Start 03/20/25 at 23:00; Stop 03/21/25 at 12:57; Status DC Cefazolin Sodium 2 gm ONCALL IVPB; Start 03/21/25 at 06:30; Stop 03/21/25 at 14:11; Status DC Cefazolin Sodium 1 gm STK-MED ONCE .ROUTE; Start 03/21/25 at 07:00; Stop 03/21/25 at 07:00; Status DC Vancomycin HCl 0 ml @ As Directed STK-MED ONCE IV; Start 03/21/25 at 07:00; Stop 03/21/25 at 07:00; Status DC Lidocaine HCl 100 mg STK-MED ONCE .ROUTE; Start 03/21/25 at 07:14; Stop 03/21/25 at 07:14; Status DC Phenylephrine HCl 10 mg STK-MED ONCE IV; Start 03/21/25 at 07:14; Stop 03/21/25 at 07:14; Status DC Ondansetron HCl 4 mg STK-MED ONCE .ROUTE; Start 03/21/25 at 07:14; Stop 03/21/25 at 07:14; Status DC Ropivacaine 150 mg STK-MED ONCE .ROUTE; Start 03/21/25 at 07:14; Stop 03/21/25 at 07:14; Status DC Succinylcholine Chloride 200 mg STK-MED ONCE .ROUTE; Start 03/21/25 at 07:14; Stop 03/21/25 at 07:14; Status DC Ephedrine Sulfate 50 mg STK-MED ONCE .ROUTE; Start 03/21/25 at 07:14; Stop 03/21/25 at 07:15; Status DC Midazolam HCl 2 mg STK-MED ONCE .ROUTE; Start 03/21/25 at 07:15; Stop 03/21/25 at 07:15; Status DC Propofol 200 mg STK-MED ONCE IV; Start 03/21/25 at 07:15; Stop 03/21/25 at 07:15; Status DC Ketamine HCl 50 mg STK-MED ONCE .ROUTE; Start 03/21/25 at 07:15; Stop 03/21/25 at 07:15; Status DC Rocuronium [place] 50 mg STK-MED ONCE .ROUTE; Start 03/21/25 at 07:15; Stop 03/21/25 at 07:15; Status DC Fentanyl Citrate 100 mcg STK-MED ONCE .ROUTE; Start 03/21/25 at 07:15; Stop 03/21/25 at 07:15; Status DC Ondansetron HCl 4 mg AD PRN IVP; Start 03/21/25 at 08:00; Stop 03/21/25 at 10:51; Status DC Metoclopramide HCl 10 mg AD PRN IVP; Start 03/21/25 at 08:00; Stop 03/21/25 at 10:51; Status DC Promethazine HCl 25 mg AD PRN IM; Start 03/21/25 at 08:00; Stop 03/21/25 at 10:51; Status DC Ketorolac Tromethamine 30 mg AD PRN IV; Start 03/21/25 at 08:00; Stop 03/21/25 at 10:51; Status DC Morphine Sulfate 2 mg AD PRN IVP; Start 03/21/25 at 08:00; Stop 03/21/25 at 10:51; Status DC Fentanyl Citrate 25 mcg Q5MIN PRN IVP; Start 03/21/25 at 08:00; Stop 03/21/25 at 10:51; Status DC Naloxone HCl 0.1 mg AD PRN IVP; Start 03/21/25 at 08:00; Stop 03/21/25 at 10:51; Status DC Acetaminophen 100 ml @ As Directed STK-MED ONCE .ROUTE; Start 03/21/25 at 07:49; Stop 03/21/25 at 07:50; Status DC Albumin Human 250 ml @ As Directed STK-MED ONCE IV; Start 03/21/25 at 08:18; Stop 03/21/25 at 08:18; Status DC Albumin Human 250 ml @ As Directed STK-MED ONCE IV; Start 03/21/25 at 08:34; Stop 03/21/25 at 08:34; Status DC Cefazolin Sodium 3 gm STK-MED ONCE IRRIG Last administered on 03/21/25at 09:51; Start 03/21/25 at 09:51; Stop 03/21/25 at 09:56; Status DC Rocuronium [place] 50 mg STK-MED ONCE .ROUTE; Start 03/21/25 at 10:20; Stop 03/21/25 at 10:21; Status DC Fentanyl Citrate 100 mcg STK-MED ONCE .ROUTE; Start 03/21/25 at 10:35; Stop 03/21/25 at 10:35; Status DC Fentanyl Citrate 100 mcg STK-MED ONCE .ROUTE; Start 03/21/25 at 12:23; Stop 03/21/25 at 12:24; Status DC Ondansetron HCl 4 mg AD PRN IVP; Start 03/21/25 at 13:00; Stop 03/21/25 at 14:11; Status DC Metoclopramide HCl 10 mg AD PRN IVP; Start 03/21/25 at 13:00; Stop 03/21/25 at 14:15; Status DC Promethazine HCl 25 mg AD PRN IM; Start 03/21/25 at 13:00; Stop 03/21/25 at 14:11; Status DC Ketorolac Tromethamine 30 mg AD PRN IV; Start 03/21/25 at 13:00; Stop 03/21/25 at 14:11; Status DC Morphine Sulfate 2 mg AD PRN IVP; Start 03/21/25 at 13:00; Stop 03/21/25 at 14:11; Status DC Fentanyl Citrate 25 mcg Q5MIN PRN IVP; Start 03/21/25 at 13:00; Stop 03/21/25 at 14:11; Status DC Naloxone HCl 0.1 mg AD PRN IVP; Start 03/21/25 at 13:00; Stop 03/21/25 at 14:11; Status DC Sodium Chloride 1,000 ml @ 100 mls/hr Q10H IV Last administered on 03/22/25at 10:49; Start 03/21/25 at 13:00; Stop 03/22/25 at 12:59; Status DC Polyethylene Glycol 17 gm DAILY PO Last administered on 03/25/25at 08:28; Start 03/22/25 at 09:00; Stop 04/21/25 at 08:59 Bisacodyl 10 mg DAILY PRN RC Last administered on 03/24/25at 20:40; Start 03/24/25 at 13:00; Stop 04/23/25 at 12:59 Ketorolac Tromethamine 15 mg Q6H PRN IV Last administered on 03/22/25at 10:51; Start 03/21/25 at 13:00; Stop 03/26/25 at 12:59 Famotidine 20 mg Q48H PO Last administered on 03/23/25at 20:46; Start 03/21/25 at 21:00; Stop 04/20/25 at 20:59 Ferrous Fumarate 324 mg DAILY PRN PO; Start 03/21/25 at 13:00; Stop 04/20/25 at 12:59 Temazepam 15 mg HS PRN PO; Start 03/21/25 at 13:00; Stop 04/20/25 at 12:59 Ondansetron HCl 4 mg Q6H PRN IVP; Start 03/21/25 at 13:00; Stop 04/20/25 at 12:59 Calcium Carbonate 500 mg Q12H PRN PO Last administered on 03/22/25at 14:53; Start 03/21/25 at 13:00; Stop 04/20/25 at 12:59 Diphenhydramine HCl 25 mg Q6H PRN IVP; Start 03/21/25 at 13:00; Stop 04/20/25 at 12:59 Acetaminophen/ Hydrocodone Bitart Q4H PRN PO Last administered on 03/25/25at 10:49; Start 03/21/25 at 13:00; Stop 03/26/25 at 12:59 Vancomycin HCl 250 ml @ 125 mls/hr Q24H IV Last administered on 03/25/25at 15:36; Start 03/21/25 at 14:30; Stop 03/31/25 at 14:29 Hydromorphone HCl 0.5 mg Q4H PRN IVP Last administered on 03/22/25at 14:50; Start 03/21/25 at 20:00; Stop 03/23/25 at 13:47; Status DC Metoprolol Tartrate 12.5 mg BID PO Last administered on 03/23/25at 09:48; Start 03/23/25 at 09:00; Stop 03/23/25 at 17:18; Status DC Sodium Chloride 1,000 ml @ 100 mls/hr Q10H IV Last administered on 03/24/25at 06:02; Start 03/23/25 at 07:00; Stop 03/24/25 at 06:39; Status DC Hydromorphone HCl 0.5 mg Q4H PRN IVP Last administered on 03/24/25at 22:26; Start 03/23/25 at 14:00; Stop 03/25/25 at 12:32; Status DC Metoprolol Tartrate 12.5 mg Q8H5 PO Last administered on 03/25/25at 12:05; Start 03/23/25 at 21:00; Stop 04/22/25 at 08:59 Pharmacy Profile Note 1 each AD [facility] [place]; Start 03/23/25 at 16:30; Stop 03/25/25 at 12:28; Status DC Apixaban 2.5 mg BID PO Last administered on 03/24/25at 10:10; Start 03/23/25 at 21:00; Stop 03/24/25 at 12:24; Status DC Midodrine 10 mg DAILY18 PO Last administered on 03/24/25at 18:19; Start 03/23/25 at 18:00; Stop 04/22/25 at 17:59 Midodrine 10 mg DAILY06 PO Last administered on 03/25/25at 05:31; Start 03/24/25 at 06:00; Stop 04/23/25 at 05:59 Midodrine 10 mg DAILY10 PO Last administered on 03/25/25at 10:29; Start 03/24/25 at 10:00; Stop 04/23/25 at 09:59 Midodrine 10 mg DAILY14 PO Last administered on 03/25/25at 15:37; Start 03/24/25 at 14:00; Stop 04/23/25 at 13:59 Sodium Chloride 1,000 ml @ 60 mls/hr [id number] IV Last administered on 03/25/25at 00:05; Start 03/24/25 at 07:00; Stop 04/23/25 at 06:59 Vancomycin HCl 1 gm ONCALL ONCE IV; Start 03/27/25 at 06:00; Stop 03/27/25 at 06:01 Enoxaparin Sodium 90 mg Q24H SQ Last administered on 03/25/25at 10:29; Start 03/25/25 at 09:00; Stop 04/24/25 at 08:59 ALEKSANDR GARCIA MD Mar 25, 2025 17:48
[2025-03-25] MEDS: MAGNESIUM 2GM PREMIX 50ML 50 ML IV PRN (23:21)
[2025-03-26] VITALS (11 sets, daily range): BP systolic 112–130; BP diastolic 57–91; PULSE 80–120; RESP 16–18; TEMP 97.8–99.1; O2SAT 95–100
[2025-03-26 05:17] LABS: IMMATURE GRANULOCYTE ABSOLUTE 0.02 K/uL (0-1); NUCLEATED RED BLOOD CELLS 0.0 % (0.0-0.19); PLATELET COUNT (AUTO) 264 K/uL (130-400); RED BLOOD CELL COUNT(AUTO) 2.69 MIL/uL (4.00-5.50); RED CELL DISTRIBUTION WIDTH 15.3 % (11.0-15.5); WHITE BLOOD COUNT (AUTO) 6.5 K/uL (4.8-10.8)
[2025-03-26 05:31] LABS: ASPARTATE AMINOTRANSFERASE 16.0 U/L (10-37); CREATININE 1.6 mg/dL (0.5-1.0); GLOMERULAR FILTR. RATE CALC 32.0 mL/min (>90); GLUCOSE,RANDOM 98.0 mg/dL (70-105); SODIUM SERUM 137.0 mmol/L (136-145); TOTAL PROTEIN, SERUM 5.8 g/dL (6.0-8.3); UREA NITROGEN, BLOOD 29.0 mg/dL (7-18)
[2025-03-26 07:19] LABS: NUCLEATED RED BLOOD CELLS 0.0 % (0.0-0.19); PLATELET COUNT (AUTO) 280.0 K/uL (130-400); RED BLOOD CELL COUNT(AUTO) 2.78 MIL/uL (4.00-5.50); RED CELL DISTRIBUTION WIDTH 15.2 % (11.0-15.5); WHITE BLOOD COUNT (AUTO) 7.8 K/uL (4.8-10.8)
[2025-03-26 07:29] LABS: INR 1.25 (0.85-1.15)
[2025-03-26 07:32] LABS: CREATININE 1.6 mg/dL (0.5-1.0); GLOMERULAR FILTR. RATE CALC 32.0 mL/min (>90); GLUCOSE,RANDOM 102.0 mg/dL (70-105); SODIUM SERUM 138.0 mmol/L (136-145); UREA NITROGEN, BLOOD 30.0 mg/dL (7-18)
--- NOTE | 2025-03-26 12:56 | PN ---
The patient was transferred from [facility] for assessment and treatment of right prosthetic knee dislocation post fall. The patient was evaluated by Dr. Armstrong, Dr. Moura, and Dr. Miilan at [facility] and they referred the patient to a higher level of care facility with an orthopedic that can perform surgery on her knee. The patient had sustained a recent fall from ground level with trauma of her right knee and a dislocation she was evaluated initially in [facility] management with analgesics and immobilizer. After lengthy process of consulting different orthopedics, we presented the case to Dr. Brown who agreed to accept the patient and manage the dislocation of the left knee. Patient was seen and evaluated at bedside. She denies chest pain or shortness of breath or dizziness. She has bilateral lower extremity edema, denies easy bruising or bleeding. There is a plan for placement of pacemaker in the morning Patient have right sided ecchymosis. PE GENERAL: No acute respiratory distress. VITAL SIGNS: Reviewed and stable. HEENT: The sclerae are clear. The pupils are equal and reactive to light. The oropharyngeal cavity is within normal limits. NECK: Supple without lymphadenopathy. CHEST: Lung is clear bilaterally there is no wheezing or crackles. HEART: Sounds are regular and rhythmic. ABDOMEN: No guarding or rigidity. Bowel sounds positive. EXTREMITIES: No pitting edema. No petechial lesions or bruises. SKIN: No bruises, rash, or petechial lesions. NEUROLOGICAL: The patient is alert and oriented. No focal deficits. Muscle strength is 5/5. LYMPH NODES: There is no lymphadenopathy could be felt in the neck, supraclavicular, or axillary. IMPRESSION 1. Anemia 2. Elevated PTT 3. A fib currently on lovenox 4. s/p revised total knee arthroplasty 5. Arrhythmia and there is plan for pacemaker to be inserted in the morning PLAN 1. Patient to have pacemaker inserted in the morning. 2. For mixing studies to be done for elevated PTT, Lovenox to be held at least for 48 hours. If PTT is still prolongated after stopping Lovenox then we will do mixing study. 3. There was hypersegmented neutrophils. This patient to be started on folic acid 1 mg p.o. daily and vitamin B12 1000 mcg p.o. daily. 4. This patient could benefit from Procrit especially with the patient have anemia of chronic disease. 5. No need for blood product transfusion Vitals/Labs Vital Signs Date Time Temp Pulse Resp B/P (MAP) Pulse Ox O2 Delivery O2 Flow Rate FiO2 03/26/25 12:00 98.1 95 18 119/75 94 Room Air 03/26/25 06:41 21 03/26/25 06:15 2.0 Laboratory Tests 03/26/25 05:02 03/26/25 07:15 Medications Current Medications Home Med 2 INHALATIONS BID BID IH Last administered on 03/26/25 09:03; Start 03/16/25 at 09:00; Stop 04/15/25 at 08:59 Lidocaine 1 each DAILY TP Last administered on 03/26/25 09:03; Start 03/16/25 at 09:00; Stop 04/15/25 at 08:59 Azithromycin 250 mg QMOFR PO Last administered on 03/25/25at 08:27; Start 03/18/25 at 09:00; Stop 03/28/25 at 08:59 Acetaminophen 650 mg Q6H PRN PO; Start 03/15/25 at 21:00; Stop 04/14/25 at 20:59 Acetaminophen/ Hydrocodone Bitart 1 tab Q6H PRN PO Last administered on 03/16/25at 21:00; Start 03/15/25 at 21:00; Stop 03/20/25 at 20:59; Status DC Aspirin 81 mg DAILY PO Last administered on 03/16/25at 09:35; Start 03/16/25 at 09:00; Stop 03/16/25 at 16:20; Status DC Hydromorphone HCl 0.5 mg Q4H PRN IVP Last administered on 03/20/25at 13:28; Start 03/15/25 at 21:00; Stop 03/20/25 at 20:59; Status DC Enoxaparin Sodium 30 mg DAILY SQ Last administered on 03/16/25at 09:39; Start 03/16/25 at 09:00; Stop 03/16/25 at 16:24; Status DC Metoprolol Tartrate 5 mg Q5M PRN IV Last administered on 03/18/25at 00:23; Start 03/15/25 at 21:00 Diltiazem HCl 30 mg Q8H5 PO Last administered on 03/16/25at 14:08; Start 03/15/25 at 21:00; Stop 03/16/25 at 16:20; Status DC Furosemide 40 mg Q48H PO Last administered on 03/22/25at 10:48; Start 03/18/25 at 09:00; Stop 03/25/25 at 12:28; Status DC Dronedarone 400 mg BID PO Last administered on 03/23/25at 09:48; Start 03/15/25 at 21:00; Stop 03/23/25 at 17:18; Status DC Ipratropium [place] 0.5 MG BID IH Last administered on 03/17/25at 06:30; Start 03/15/25 at 21:00; Stop 03/17/25 at 11:07; Status DC Lactulose 20 gm DAILY PO Last administered on 03/25/25at 08:27; Start 03/16/25 at 09:00; Stop 04/15/25 at 08:59 Pantoprazole Sodium 40 mg DAILY PO Last administered on 03/26/25at 09:03; Start 03/16/25 at 09:00; Stop 04/15/25 at 08:59 Sennosides 1 tab HS PO Last administered on 03/24/25at 20:30; Start 03/15/25 at 21:00; Stop 04/14/25 at 20:59 Buspirone HCl 10 mg HS PO Last administered on 03/25/25at 21:57; Start 03/15/25 at 21:00; Stop 04/14/25 at 20:59 Melatonin 10 mg HS PO Last administered on 03/25/25at 21:57; Start 03/15/25 at 21:00; Stop 04/14/25 at 20:59 Home Med HS PO Last administered on 03/15/25at 22:59; Start 03/16/25 at 21:00; Stop 03/16/25 at 03:20; Status DC Home Med BID NASAL; Start 03/16/25 at 09:00; Stop 04/15/25 at 08:59 Baclofen 20 mg HS PRN PO Last administered on 03/17/25at 20:48; Start 03/15/25 at 21:00; Stop 04/14/25 at 20:59 Vitamin B Complex 1,000 mcg DAILY PO; Start 03/16/25 at 09:00; Stop 03/17/25 at 02:33; Status DC Dextrose 50 ml AD PRN IV; Start 03/15/25 at 21:00; Stop 04/14/25 at 20:59 Glucagon 1 mg AD PRN IM; Start 03/15/25 at 21:00; Stop 04/14/25 at 20:59 Magnesium Sulfate 50 ml @ 0 mls/hr PROTOCOL PRN IV Last administered on 03/25/25at 23:21; Start 03/15/25 at 21:00; Stop 04/14/25 at 20:59 Potassium Chloride 100 ml @ 100 mls/hr AD PRN IV; Start 03/15/25 at 21:00; Stop 04/14/25 at 20:59 Potassium Chloride 20 meq AD PRN PO; Start 03/15/25 at 21:00; Stop 04/14/25 at 20:59 Potassium Chloride 20 meq AD PRN PO; Start 03/15/25 at 21:00; Stop 04/14/25 at 20:59 Potassium Chloride 100 ml @ 50 mls/hr AD PRN IV; Start 03/15/25 at 21:00; Stop 03/16/25 at 06:38; Status DC Metoprolol Tartrate 25 mg TID PO Last administered on 03/15/25at 22:20; Start 03/15/25 at 21:00; Stop 03/16/25 at 06:38; Status DC Multivitamins Therapeutic 1 tab DAILY PO Last administered on 03/26/25at 09:03; Start 03/16/25 at 09:00; Stop 04/15/25 at 08:59 Ondansetron HCl 4 mg Q4HPRN PRN IVP; Start 03/15/25 at 21:00; Stop 03/21/25 at 14:11; Status DC Home Med BIDMEALS PO Last administered on 03/26/25at 09:03; Start 03/16/25 at 21:00; Stop 04/15/25 at 20:59 Ferrous Fumarate 324 mg ONCE ONCE PO Last administered on 03/16/25at 12:03; Start 03/16/25 at 10:00; Stop 03/16/25 at 10:01; Status DC Diltiazem HCl 30 mg Q6H PO Last administered on 03/18/25at 01:57; Start 03/16/25 at 20:00; Stop 03/18/25 at 07:08; Status DC Heparin Sodium (Porcine) *calculation based on ACTUAL B... AD PRN IV Last administered on 03/21/25at 19:55; Start 03/16/25 at 17:30; Stop 03/23/25 at 21:16; Status DC Heparin Sodium/ Dextrose 250 ml @ 0 mls/hr Q6H IV Last administered on 03/23/25at 01:38; Start 03/16/25 at 17:30; Stop 03/23/25 at 21:16; Status DC Home Med DAILY PO Last administered on 03/26/25at 09:03; Start 03/17/25 at 09:00; Stop 04/16/25 at 08:59 Acetylcysteine 20 mg Q8H5 IH; Start 03/17/25 at 13:00; Stop 03/17/25 at 10:57; Status DC Ipratropium [place] 0.5 MG Q8H5 IH Last administered on 03/26/25at 06:12; Start 03/17/25 at 13:00; Stop 04/16/25 at 12:59 Sodium Chloride 4 ml STK-MED ONCE IH Last administered on 03/17/25at 13:39; Start 03/17/25 at 13:25; Stop 03/17/25 at 13:25; Status DC Acetylcysteine 200 mg Q8H5 IH Last administered on 03/25/25at 06:58; Start 03/17/25 at 14:00; Stop 03/25/25 at 11:01; Status DC Cefepime HCl 2 gm Q24H IVPB Last administered on 03/25/25at 15:36; Start 03/17/25 at 15:30; Stop 03/27/25 at 15:29 Sodium Chloride 4 ml STK-MED ONCE IH Last administered on 03/17/25at 18:26; Start 03/17/25 at 17:57; Stop 03/17/25 at 17:57; Status DC Lactulose 20 gm ONCE ONCE PO Last administered on 03/17/25at 20:56; Start 03/17/25 at 20:55; Stop 03/17/25 at 20:56; Status DC Sodium Chloride 4 ml STK-MED ONCE IH Last administered on 03/17/25at 23:29; Start 03/17/25 at 23:05; Stop 03/17/25 at 23:05; Status DC Metoprolol Tartrate 25 mg TID PO Last administered on 03/22/25at 14:49; Start 03/18/25 at 09:00; Stop 03/23/25 at 06:43; Status DC Regadenoson 0.4 mg STK-MED ONCE IVP Last administered on 03/18/25at 09:49; Start 03/18/25 at 09:32; Stop 03/18/25 at 09:32; Status DC Pharmacy Profile Note 1 each ONCE MISC; Start 03/19/25 at 10:30; Stop 03/19/25 at 10:23; Status DC Vancomycin HCl 1 each AD IV; Start 03/19/25 at 10:30; Stop 04/02/25 at 10:29 Vancomycin HCl 250 ml @ 125 mls/hr Q24H IV Last administered on 03/20/25at 13:21; Start 03/19/25 at 11:00; Stop 03/21/25 at 14:14; Status DC Cefazolin Sodium 2 gm ONCALL IVPB Last administered on 03/21/25at 09:06; Start 03/21/25 at 08:00; Stop 03/21/25 at 06:19; Status DC Hydromorphone HCl 0.5 mg Q4H PRN IVP Last administered on 03/20/25at 22:59; Start 03/20/25 at 23:00; Stop 03/21/25 at 14:17; Status DC Acetaminophen/ Hydrocodone Bitart 1 tab Q6H PRN PO; Start 03/20/25 at 23:00; Stop 03/21/25 at 12:57; Status DC Cefazolin Sodium 2 gm ONCALL IVPB; Start 03/21/25 at 06:30; Stop 03/21/25 at 14:11; Status DC Cefazolin Sodium 1 gm STK-MED ONCE .ROUTE; Start 03/21/25 at 07:00; Stop 03/21/25 at 07:00; Status DC Vancomycin HCl 0 ml @ As Directed STK-MED ONCE IV; Start 03/21/25 at 07:00; Stop 03/21/25 at 07:00; Status DC Lidocaine HCl 100 mg STK-MED ONCE .ROUTE; Start 03/21/25 at 07:14; Stop 03/21/25 at 07:14; Status DC Phenylephrine HCl 10 mg STK-MED ONCE IV; Start 03/21/25 at 07:14; Stop 03/21/25 at 07:14; Status DC Ondansetron HCl 4 mg STK-MED ONCE .ROUTE; Start 03/21/25 at 07:14; Stop 03/21/25 at 07:14; Status DC Ropivacaine 150 mg STK-MED ONCE .ROUTE; Start 03/21/25 at 07:14; Stop 03/21/25 at 07:14; Status DC Succinylcholine Chloride 200 mg STK-MED ONCE .ROUTE; Start 03/21/25 at 07:14; Stop 03/21/25 at 07:14; Status DC Ephedrine Sulfate 50 mg STK-MED ONCE .ROUTE; Start 03/21/25 at 07:14; Stop 03/21/25 at 07:15; Status DC Midazolam HCl 2 mg STK-MED ONCE .ROUTE; Start 03/21/25 at 07:15; Stop 03/21/25 at 07:15; Status DC Propofol 200 mg STK-MED ONCE IV; Start 03/21/25 at 07:15; Stop 03/21/25 at 07:15; Status DC Ketamine HCl 50 mg STK-MED ONCE .ROUTE; Start 03/21/25 at 07:15; Stop 03/21/25 at 07:15; Status DC Rocuronium [place] 50 mg STK-MED ONCE .ROUTE; Start 03/21/25 at 07:15; Stop 03/21/25 at 07:15; Status DC Fentanyl Citrate 100 mcg STK-MED ONCE .ROUTE; Start 03/21/25 at 07:15; Stop 03/21/25 at 07:15; Status DC Ondansetron HCl 4 mg AD PRN IVP; Start 03/21/25 at 08:00; Stop 03/21/25 at 10:51; Status DC Metoclopramide HCl 10 mg AD PRN IVP; Start 03/21/25 at 08:00; Stop 03/21/25 at 10:51; Status DC Promethazine HCl 25 mg AD PRN IM; Start 03/21/25 at 08:00; Stop 03/21/25 at 10:51; Status DC Ketorolac Tromethamine 30 mg AD PRN IV; Start 03/21/25 at 08:00; Stop 03/21/25 at 10:51; Status DC Morphine Sulfate 2 mg AD PRN IVP; Start 03/21/25 at 08:00; Stop 03/21/25 at 10:51; Status DC Fentanyl Citrate 25 mcg Q5MIN PRN IVP; Start 03/21/25 at 08:00; Stop 03/21/25 at 10:51; Status DC Naloxone HCl 0.1 mg AD PRN IVP; Start 03/21/25 at 08:00; Stop 03/21/25 at 10:51; Status DC Acetaminophen 100 ml @ As Directed STK-MED ONCE .ROUTE; Start 03/21/25 at 07:49; Stop 03/21/25 at 07:50; Status DC Albumin Human 250 ml @ As Directed STK-MED ONCE IV; Start 03/21/25 at 08:18; Stop 03/21/25 at 08:18; Status DC Albumin Human 250 ml @ As Directed STK-MED ONCE IV; Start 03/21/25 at 08:34; Stop 03/21/25 at 08:34; Status DC Cefazolin Sodium 3 gm STK-MED ONCE IRRIG Last administered on 03/21/25at 09:51; Start 03/21/25 at 09:51; Stop 03/21/25 at 09:56; Status DC Rocuronium [place] 50 mg STK-MED ONCE .ROUTE; Start 03/21/25 at 10:20; Stop 03/21/25 at 10:21; Status DC Fentanyl Citrate 100 mcg STK-MED ONCE .ROUTE; Start 03/21/25 at 10:35; Stop 03/21/25 at 10:35; Status DC Fentanyl Citrate 100 mcg STK-MED ONCE .ROUTE; Start 03/21/25 at 12:23; Stop 03/21/25 at 12:24; Status DC Ondansetron HCl 4 mg AD PRN IVP; Start 03/21/25 at 13:00; Stop 03/21/25 at 14:11; Status DC Metoclopramide HCl 10 mg AD PRN IVP; Start 03/21/25 at 13:00; Stop 03/21/25 at 14:15; Status DC Promethazine HCl 25 mg AD PRN IM; Start 03/21/25 at 13:00; Stop 03/21/25 at 14:11; Status DC Ketorolac Tromethamine 30 mg AD PRN IV; Start 03/21/25 at 13:00; Stop 03/21/25 at 14:11; Status DC Morphine Sulfate 2 mg AD PRN IVP; Start 03/21/25 at 13:00; Stop 03/21/25 at 14:11; Status DC Fentanyl Citrate 25 mcg Q5MIN PRN IVP; Start 03/21/25 at 13:00; Stop 03/21/25 at 14:11; Status DC Naloxone HCl 0.1 mg AD PRN IVP; Start 03/21/25 at 13:00; Stop 03/21/25 at 14:11; Status DC Sodium Chloride 1,000 ml @ 100 mls/hr Q10H IV Last administered on 03/22/25at 10:49; Start 03/21/25 at 13:00; Stop 03/22/25 at 12:59; Status DC Polyethylene Glycol 17 gm DAILY PO Last administered on 03/25/25at 08:28; Start 03/22/25 at 09:00; Stop 04/21/25 at 08:59 Bisacodyl 10 mg DAILY PRN RC Last administered on 03/24/25at 20:40; Start 03/24/25 at 13:00; Stop 04/23/25 at 12:59 Ketorolac Tromethamine 15 mg Q6H PRN IV Last administered on 03/22/25at 10:51; Start 03/21/25 at 13:00; Stop 03/26/25 at 12:59 Famotidine 20 mg Q48H PO Last administered on 03/25/25at 21:58; Start 03/21/25 at 21:00; Stop 04/20/25 at 20:59 Ferrous Fumarate 324 mg DAILY PRN PO; Start 03/21/25 at 13:00; Stop 04/20/25 at 12:59 Temazepam 15 mg HS PRN PO; Start 03/21/25 at 13:00; Stop 04/20/25 at 12:59 Ondansetron HCl 4 mg Q6H PRN IVP; Start 03/21/25 at 13:00; Stop 04/20/25 at 12:59 Calcium Carbonate 500 mg Q12H PRN PO Last administered on 03/22/25at 14:53; Start 03/21/25 at 13:00; Stop 04/20/25 at 12:59 Diphenhydramine HCl 25 mg Q6H PRN IVP; Start 03/21/25 at 13:00; Stop 04/20/25 at 12:59 Acetaminophen/ Hydrocodone Bitart Q4H PRN PO Last administered on 03/25/25at 10:49; Start 03/21/25 at 13:00; Stop 03/26/25 at 12:59 Vancomycin HCl 250 ml @ 125 mls/hr Q24H IV Last administered on 03/25/25at 15:36; Start 03/21/25 at 14:30; Stop 03/31/25 at 14:29 Hydromorphone HCl 0.5 mg Q4H PRN IVP Last administered on 03/22/25at 14:50; Start 03/21/25 at 20:00; Stop 03/23/25 at 13:47; Status DC Metoprolol Tartrate 12.5 mg BID PO Last administered on 03/23/25at 09:48; Start 03/23/25 at 09:00; Stop 03/23/25 at 17:18; Status DC Sodium Chloride 1,000 ml @ 100 mls/hr Q10H IV Last administered on 03/24/25at 06:02; Start 03/23/25 at 07:00; Stop 03/24/25 at 06:39; Status DC Hydromorphone HCl 0.5 mg Q4H PRN IVP Last administered on 03/24/25at 22:26; Start 03/23/25 at 14:00; Stop 03/25/25 at 12:32; Status DC Metoprolol Tartrate 12.5 mg Q8H5 PO Last administered on 03/26/25at 05:29; Start 03/23/25 at 21:00; Stop 04/22/25 at 08:59 Pharmacy Profile Note 1 each AD MISC; Start 03/23/25 at 16:30; Stop 03/25/25 at 12:28; Status DC Apixaban 2.5 mg BID PO Last administered on 03/24/25at 10:10; Start 03/23/25 at 21:00; Stop 03/24/25 at 12:24; Status DC Midodrine 10 mg DAILY18 PO Last administered on 03/25/25at 18:33; Start 03/23/25 at 18:00; Stop 04/22/25 at 17:59 Midodrine 10 mg DAILY06 PO Last administered on 03/26/25at 05:28; Start 03/24/25 at 06:00; Stop 04/23/25 at 05:59 Midodrine 10 mg DAILY10 PO Last administered on 03/25/25at 10:29; Start 03/24/25 at 10:00; Stop 04/23/25 at 09:59 Midodrine 10 mg DAILY14 PO Last administered on 03/25/25at 15:37; Start 03/24/25 at 14:00; Stop 04/23/25 at 13:59 Sodium Chloride 1,000 ml @ 60 mls/hr [id number] IV Last administered on 03/26/25at 09:05; Start 03/24/25 at 07:00; Stop 04/23/25 at 06:59 Vancomycin HCl 1 gm ONCALL ONCE IV; Start 03/27/25 at 06:00; Stop 03/27/25 at 06:01 Enoxaparin Sodium 90 mg Q24H SQ Last administered on 03/26/25at 09:03; Start 03/25/25 at 09:00; Stop 04/24/25 at 08:59 TATUM GILLETTE MD Mar 26, 2025 12:56
[2025-03-26] MEDS: HYDROcodone/APAP 5/325 1 TAB TABLET PO PRN (16:25)
[2025-03-27] VITALS (32 sets, daily range): BP systolic 107–138; BP diastolic 67–92; PULSE 81–120; RESP 13–22; TEMP 97.3–98.1; O2SAT 98–99
[2025-03-27 04:31] LABS: IMMATURE GRANULOCYTE ABSOLUTE 0.02 K/uL (0-1); NUCLEATED RED BLOOD CELLS 0.3 % (0.0-0.19); PLATELET COUNT (AUTO) 298 K/uL (130-400); RED BLOOD CELL COUNT(AUTO) 2.66 MIL/uL (4.00-5.50); RED CELL DISTRIBUTION WIDTH 15.0 % (11.0-15.5); WHITE BLOOD COUNT (AUTO) 6.8 K/uL (4.8-10.8)
[2025-03-27 04:37] LABS: CREATININE 1.7 mg/dL (0.5-1.0); GLOMERULAR FILTR. RATE CALC 30.0 mL/min (>90); GLUCOSE,RANDOM 97.0 mg/dL (70-105); SODIUM SERUM 134.0 mmol/L (136-145); UREA NITROGEN, BLOOD 30.0 mg/dL (7-18)
[2025-03-27 04:42] LABS: INR 1.24 (0.85-1.15)
--- NOTE | 2025-03-27 05:09 | EKG ---
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 : 1940 Requested By: MEG DANIELS Order Number: [id number] Reading MD: Birgit Nix Measurements Intervals [place] Rate: 130 P: 0 SC: 0 QRS: -32 QRSD: 86 T: 237 QT: 268 QTc: 394 Interpretive Statements Atrial fibrillation with rapid ventricular response Left axis deviation Low voltage QRS Cannot rule out Anterior infarct , age undetermined Compared to ECG 03/18/2025 06:00:56 Low QRS voltage now present Myocardial infarct finding now present Ventricular premature complex(es) no longer present ST (T wave) deviation no longer present Electronically Signed On 03-27-2025 08:44:23 TWIST TESTER by Birgit Nix Please click the below link to view image of tracing.
[2025-03-27] MEDS ORDERED: VANCOMYCIN KIT 1 GM/250 ML IV.KIT IV ONE (06:00)
[2025-03-27] MEDS: VANCOMYCIN KIT 1 GM/250 ML IV.KIT IV ONE (06:00)
--- NOTE | 2025-03-27 07:13 | PN ---
SUBJECTIVE: Comfortable, afebrile. No fever or chills. No chest pain, palpitations, no nausea or vomiting. The patient is on Lovenox subcutaneously b.i.d. She is scheduled for pacemaker placement tomorrow after an AV node ablation. OBJECTIVE: GENERAL: Currently awake, alert, oriented to person, time, and place. VITAL SIGNS: Blood pressure 130/72, pulse 104, respiratory rate 18. HEENT: Normocephalic, atraumatic. LUNGS: Clear to auscultation. HEART: S1, S2 are distant. ABDOMEN: Prominent, soft, nontender. EXTREMITIES: No clubbing or cyanosis. LABORATORY DATA: WBC count 7.8, hemoglobin 9.4, platelets 280, sodium 138, potassium 4.7, BUN 30, creatinine 1.6, calcium 8.2. ASSESSMENT AND PLAN: Congestive heart failure, newly diagnosed associated with atrial fibrillation with rapid ventricular response. An echocardiogram with an ejection fraction of 35%-40%. The patient is scheduled to have AV node ablation and possible pacemaker and defibrillator placement tomorrow. Atrial fibrillation, rate controlled. Anticoagulation, continue with Lovenox. Status post fall with dislocation of the prosthetic right knee status post revision. Continue with Orthopedics recommendation. Type 2 diabetes, diet controlled. Continue current approach. Hypertension. Continue current treatment. Dyslipidemia. Continue current therapy. Chronic kidney disease is stable. The latest creatinine has been 1.6. Anemia, chronic, stable. Continue to monitor. COPD with bronchiectasis. Continue bronchodilators. Follow up in a.m. with results. DOS: 03/26/2025 TID: [id number] RECEIPT: [id number] [facility]
--- NOTE | 2025-03-27 08:33 | PN ---
Scheduled for pacemaker insertion today. Please contact me as needed; I will defer to Dr. Thomas and the primary care team. Vitals/Labs Vital Signs Date Time Temp Pulse Resp B/P (MAP) Pulse Ox O2 Delivery O2 Flow Rate FiO2 03/27/25 07:42 97.9 120 20 128/77 98 Nasal Cannula 03/27/25 06:12 1.0 24 Laboratory Tests 03/27/25 04:12 Medications Current Medications Home Med 2 INHALATIONS BID BID IH Last administered on 03/26/25at 23:12; Start 03/16/25 at 09:00; Stop 04/15/25 at 08:59 Lidocaine 1 each DAILY TP Last administered on 03/26/25at 09:03; Start 03/16/25 at 09:00; Stop 04/15/25 at 08:59 Azithromycin 250 mg QMOFR PO Last administered on 03/25/25at 08:27; Start 03/18/25 at 09:00; Stop 03/28/25 at 08:59 Acetaminophen 650 mg Q6H PRN PO; Start 03/15/25 at 21:00; Stop 04/14/25 at 20:59 Acetaminophen/ Hydrocodone Bitart 1 tab Q6H PRN PO Last administered on 03/16/25at 21:00; Start 03/15/25 at 21:00; Stop 03/20/25 at 20:59; Status DC Aspirin 81 mg DAILY PO Last administered on 03/16/25at 09:35; Start 03/16/25 at 09:00; Stop 03/16/25 at 16:20; Status DC Hydromorphone HCl 0.5 mg Q4H PRN IVP Last administered on 03/20/25at 13:28; Start 03/15/25 at 21:00; Stop 03/20/25 at 20:59; Status DC Enoxaparin Sodium 30 mg DAILY SQ Last administered on 03/16/25at 09:39; Start 03/16/25 at 09:00; Stop 03/16/25 at 16:24; Status DC Metoprolol Tartrate 5 mg Q5M PRN IV Last administered on 03/18/25at 00:23; Start 03/15/25 at 21:00 Diltiazem HCl 30 mg Q8H5 PO Last administered on 03/16/25at 14:08; Start 03/15/25 at 21:00; Stop 03/16/25 at 16:20; Status DC Furosemide 40 mg Q48H PO Last administered on 03/22/25at 10:48; Start 03/18/25 at 09:00; Stop 03/25/25 at 12:28; Status DC Dronedarone 400 mg BID PO Last administered on 03/23/25at 09:48; Start 03/15/25 at 21:00; Stop 03/23/25 at 17:18; Status DC Ipratropium [place] 0.5 MG BID IH Last administered on 03/17/25at 06:30; Start 03/15/25 at 21:00; Stop 03/17/25 at 11:07; Status DC Lactulose 20 gm DAILY PO Last administered on 03/25/25at 08:27; Start 03/16/25 at 09:00; Stop 04/15/25 at 08:59 Pantoprazole Sodium 40 mg DAILY PO Last administered on 03/26/25at 09:03; Start 03/16/25 at 09:00; Stop 04/15/25 at 08:59 Sennosides 1 tab HS PO Last administered on 03/26/25at 20:30; Start 03/15/25 at 21:00; Stop 04/14/25 at 20:59 Buspirone HCl 10 mg HS PO Last administered on 03/26/25at 20:29; Start 03/15/25 at 21:00; Stop 04/14/25 at 20:59 Melatonin 10 mg HS PO Last administered on 03/26/25at 20:29; Start 03/15/25 at 21:00; Stop 04/14/25 at 20:59 Home Med HS PO Last administered on 03/15/25at 22:59; Start 03/16/25 at 21:00; Stop 03/16/25 at 03:20; Status DC Home Med BID NASAL; Start 03/16/25 at 09:00; Stop 04/15/25 at 08:59 Baclofen 20 mg HS PRN PO Last administered on 03/17/25at 20:48; Start 03/15/25 at 21:00; Stop 04/14/25 at 20:59 Vitamin B Complex 1,000 mcg DAILY PO; Start 03/16/25 at 09:00; Stop 03/17/25 at 02:33; Status DC Dextrose 50 ml AD PRN IV; Start 03/15/25 at 21:00; Stop 04/14/25 at 20:59 Glucagon 1 mg AD PRN IM; Start 03/15/25 at 21:00; Stop 04/14/25 at 20:59 Magnesium Sulfate 50 ml @ 0 mls/hr PROTOCOL PRN IV Last administered on 03/25/25at 23:21; Start 03/15/25 at 21:00; Stop 04/14/25 at 20:59 Potassium Chloride 100 ml @ 100 mls/hr AD PRN IV; Start 03/15/25 at 21:00; Stop 04/14/25 at 20:59 Potassium Chloride 20 meq AD PRN PO; Start 03/15/25 at 21:00; Stop 04/14/25 at 20:59 Potassium Chloride 20 meq AD PRN PO; Start 03/15/25 at 21:00; Stop 04/14/25 at 20:59 Potassium Chloride 100 ml @ 50 mls/hr AD PRN IV; Start 03/15/25 at 21:00; Stop 03/16/25 at 06:38; Status DC Metoprolol Tartrate 25 mg TID PO Last administered on 03/15/25at 22:20; Start 03/15/25 at 21:00; Stop 03/16/25 at 06:38; Status DC Multivitamins Therapeutic 1 tab DAILY PO Last administered on 03/26/25at 09:03; Start 03/16/25 at 09:00; Stop 04/15/25 at 08:59 Ondansetron HCl 4 mg Q4HPRN PRN IVP; Start 03/15/25 at 21:00; Stop 03/21/25 at 14:11; Status DC Home Med BIDMEALS PO Last administered on 03/26/25at 18:20; Start 03/16/25 at 21:00; Stop 04/15/25 at 20:59 Ferrous Fumarate 324 mg ONCE ONCE PO Last administered on 03/16/25at 12:03; Start 03/16/25 at 10:00; Stop 03/16/25 at 10:01; Status DC Diltiazem HCl 30 mg Q6H PO Last administered on 03/18/25at 01:57; Start 03/16/25 at 20:00; Stop 03/18/25 at 07:08; Status DC Heparin Sodium (Porcine) *calculation based on ACTUAL B... AD PRN IV Last administered on 03/21/25at 19:55; Start 03/16/25 at 17:30; Stop 03/23/25 at 21:16; Status DC Heparin Sodium/ Dextrose 250 ml @ 0 mls/hr Q6H IV Last administered on 03/23/25at 01:38; Start 03/16/25 at 17:30; Stop 03/23/25 at 21:16; Status DC Home Med DAILY PO Last administered on 03/26/25at 09:03; Start 03/17/25 at 09:00; Stop 04/16/25 at 08:59 Acetylcysteine 20 mg Q8H5 IH; Start 03/17/25 at 13:00; Stop 03/17/25 at 10:57; Status DC Ipratropium [place] 0.5 MG Q8H5 IH Last administered on 03/27/25at 06:10; Start 03/17/25 at 13:00; Stop 04/16/25 at 12:59 Sodium Chloride 4 ml STK-MED ONCE IH Last administered on 03/17/25at 13:39; Start 03/17/25 at 13:25; Stop 03/17/25 at 13:25; Status DC Acetylcysteine 200 mg Q8H5 IH Last administered on 03/25/25at 06:58; Start 03/17/25 at 14:00; Stop 03/25/25 at 11:01; Status DC Cefepime HCl 2 gm Q24H IVPB Last administered on 03/26/25at 16:25; Start 03/17/25 at 15:30; Stop 03/27/25 at 15:29 Sodium Chloride 4 ml STK-MED ONCE IH Last administered on 03/17/25at 18:26; Start 03/17/25 at 17:57; Stop 03/17/25 at 17:57; Status DC Lactulose 20 gm ONCE ONCE PO Last administered on 03/17/25at 20:56; Start 03/17/25 at 20:55; Stop 03/17/25 at 20:56; Status DC Sodium Chloride 4 ml STK-MED ONCE IH Last administered on 03/17/25at 23:29; Start 03/17/25 at 23:05; Stop 03/17/25 at 23:05; Status DC Metoprolol Tartrate 25 mg TID PO Last administered on 03/22/25at 14:49; Start 03/18/25 at 09:00; Stop 03/23/25 at 06:43; Status DC Regadenoson 0.4 mg STK-MED ONCE IVP Last administered on 03/18/25at 09:49; Start 03/18/25 at 09:32; Stop 03/18/25 at 09:32; Status DC Pharmacy Profile Note 1 each ONCE MISC; Start 03/19/25 at 10:30; Stop 03/19/25 at 10:23; Status DC Vancomycin HCl 1 each AD IV; Start 03/19/25 at 10:30; Stop 04/02/25 at 10:29 Vancomycin HCl 250 ml @ 125 mls/hr Q24H IV Last administered on 03/20/25at 13:21; Start 03/19/25 at 11:00; Stop 03/21/25 at 14:14; Status DC Cefazolin Sodium 2 gm ONCALL IVPB Last administered on 03/21/25at 09:06; Start 03/21/25 at 08:00; Stop 03/21/25 at 06:19; Status DC Hydromorphone HCl 0.5 mg Q4H PRN IVP Last administered on 03/20/25at 22:59; Start 03/20/25 at 23:00; Stop 03/21/25 at 14:17; Status DC Acetaminophen/ Hydrocodone Bitart 1 tab Q6H PRN PO; Start 03/20/25 at 23:00; Stop 03/21/25 at 12:57; Status DC Cefazolin Sodium 2 gm ONCALL IVPB; Start 03/21/25 at 06:30; Stop 03/21/25 at 14:11; Status DC Cefazolin Sodium 1 gm STK-MED ONCE .ROUTE; Start 03/21/25 at 07:00; Stop 03/21/25 at 07:00; Status DC Vancomycin HCl 0 ml @ As Directed STK-MED ONCE IV; Start 03/21/25 at 07:00; Stop 03/21/25 at 07:00; Status DC Lidocaine HCl 100 mg STK-MED ONCE .ROUTE; Start 03/21/25 at 07:14; Stop 03/21/25 at 07:14; Status DC Phenylephrine HCl 10 mg STK-MED ONCE IV; Start 03/21/25 at 07:14; Stop 03/21/25 at 07:14; Status DC Ondansetron HCl 4 mg STK-MED ONCE .ROUTE; Start 03/21/25 at 07:14; Stop 03/21/25 at 07:14; Status DC Ropivacaine 150 mg STK-MED ONCE .ROUTE; Start 03/21/25 at 07:14; Stop 03/21/25 at 07:14; Status DC Succinylcholine Chloride 200 mg STK-MED ONCE .ROUTE; Start 03/21/25 at 07:14; Stop 03/21/25 at 07:14; Status DC Ephedrine Sulfate 50 mg STK-MED ONCE .ROUTE; Start 03/21/25 at 07:14; Stop 03/21/25 at 07:15; Status DC Midazolam HCl 2 mg STK-MED ONCE .ROUTE; Start 03/21/25 at 07:15; Stop 03/21/25 at 07:15; Status DC Propofol 200 mg STK-MED ONCE IV; Start 03/21/25 at 07:15; Stop 03/21/25 at 07:15; Status DC Ketamine HCl 50 mg STK-MED ONCE .ROUTE; Start 03/21/25 at 07:15; Stop 03/21/25 at 07:15; Status DC Rocuronium [place] 50 mg STK-MED ONCE .ROUTE; Start 03/21/25 at 07:15; Stop 03/21/25 at 07:15; Status DC Fentanyl Citrate 100 mcg STK-MED ONCE .ROUTE; Start 03/21/25 at 07:15; Stop 03/21/25 at 07:15; Status DC Ondansetron HCl 4 mg AD PRN IVP; Start 03/21/25 at 08:00; Stop 03/21/25 at 10:51; Status DC Metoclopramide HCl 10 mg AD PRN IVP; Start 03/21/25 at 08:00; Stop 03/21/25 at 10:51; Status DC Promethazine HCl 25 mg AD PRN IM; Start 03/21/25 at 08:00; Stop 03/21/25 at 10:51; Status DC Ketorolac Tromethamine 30 mg AD PRN IV; Start 03/21/25 at 08:00; Stop 03/21/25 at 10:51; Status DC Morphine Sulfate 2 mg AD PRN IVP; Start 03/21/25 at 08:00; Stop 03/21/25 at 10:51; Status DC Fentanyl Citrate 25 mcg Q5MIN PRN IVP; Start 03/21/25 at 08:00; Stop 03/21/25 at 10:51; Status DC Naloxone HCl 0.1 mg AD PRN IVP; Start 03/21/25 at 08:00; Stop 03/21/25 at 10:51; Status DC Acetaminophen 100 ml @ As Directed STK-MED ONCE .ROUTE; Start 03/21/25 at 07:49; Stop 03/21/25 at 07:50; Status DC Albumin Human 250 ml @ As Directed STK-MED ONCE IV; Start 03/21/25 at 08:18; Stop 03/21/25 at 08:18; Status DC Albumin Human 250 ml @ As Directed STK-MED ONCE IV; Start 03/21/25 at 08:34; Stop 03/21/25 at 08:34; Status DC Cefazolin Sodium 3 gm STK-MED ONCE IRRIG Last administered on 03/21/25at 09:51; Start 03/21/25 at 09:51; Stop 03/21/25 at 09:56; Status DC Rocuronium [place] 50 mg STK-MED ONCE .ROUTE; Start 03/21/25 at 10:20; Stop 03/21/25 at 10:21; Status DC Fentanyl Citrate 100 mcg STK-MED ONCE .ROUTE; Start 03/21/25 at 10:35; Stop 03/21/25 at 10:35; Status DC Fentanyl Citrate 100 mcg STK-MED ONCE .ROUTE; Start 03/21/25 at 12:23; Stop 03/21/25 at 12:24; Status DC Ondansetron HCl 4 mg AD PRN IVP; Start 03/21/25 at 13:00; Stop 03/21/25 at 14:11; Status DC Metoclopramide HCl 10 mg AD PRN IVP; Start 03/21/25 at 13:00; Stop 03/21/25 at 14:15; Status DC Promethazine HCl 25 mg AD PRN IM; Start 03/21/25 at 13:00; Stop 03/21/25 at 14:11; Status DC Ketorolac Tromethamine 30 mg AD PRN IV; Start 03/21/25 at 13:00; Stop 03/21/25 at 14:11; Status DC Morphine Sulfate 2 mg AD PRN IVP; Start 03/21/25 at 13:00; Stop 03/21/25 at 14:11; Status DC Fentanyl Citrate 25 mcg Q5MIN PRN IVP; Start 03/21/25 at 13:00; Stop 03/21/25 at 14:11; Status DC Naloxone HCl 0.1 mg AD PRN IVP; Start 03/21/25 at 13:00; Stop 03/21/25 at 14:11; Status DC Sodium Chloride 1,000 ml @ 100 mls/hr Q10H IV Last administered on 03/22/25at 10:49; Start 03/21/25 at 13:00; Stop 03/22/25 at 12:59; Status DC Polyethylene Glycol 17 gm DAILY PO Last administered on 03/25/25at 08:28; Start 03/22/25 at 09:00; Stop 04/21/25 at 08:59 Bisacodyl 10 mg DAILY PRN RC Last administered on 03/24/25at 20:40; Start 03/24/25 at 13:00; Stop 04/23/25 at 12:59 Ketorolac Tromethamine 15 mg Q6H PRN IV Last administered on 03/22/25at 10:51; Start 03/21/25 at 13:00; Stop 03/26/25 at 12:59; Status DC Famotidine 20 mg Q48H PO Last administered on 03/25/25at 21:58; Start 03/21/25 at 21:00; Stop 04/20/25 at 20:59 Ferrous Fumarate 324 mg DAILY PRN PO; Start 03/21/25 at 13:00; Stop 04/20/25 at 12:59 Temazepam 15 mg HS PRN PO; Start 03/21/25 at 13:00; Stop 04/20/25 at 12:59 Ondansetron HCl 4 mg Q6H PRN IVP; Start 03/21/25 at 13:00; Stop 04/20/25 at 12:59 Calcium Carbonate 500 mg Q12H PRN PO Last administered on 03/22/25at 14:53; Start 03/21/25 at 13:00; Stop 04/20/25 at 12:59 Diphenhydramine HCl 25 mg Q6H PRN IVP; Start 03/21/25 at 13:00; Stop 04/20/25 at 12:59 Acetaminophen/ Hydrocodone Bitart Q4H PRN PO Last administered on 03/25/25at 10:49; Start 03/21/25 at 13:00; Stop 03/26/25 at 12:59; Status DC Vancomycin HCl 250 ml @ 125 mls/hr Q24H IV Last administered on 03/25/25at 15:36; Start 03/21/25 at 14:30; Stop 03/26/25 at 14:04; Status DC Hydromorphone HCl 0.5 mg Q4H PRN IVP Last administered on 03/22/25at 14:50; Start 03/21/25 at 20:00; Stop 03/23/25 at 13:47; Status DC Metoprolol Tartrate 12.5 mg BID PO Last administered on 03/23/25at 09:48; Start 03/23/25 at 09:00; Stop 03/23/25 at 17:18; Status DC Sodium Chloride 1,000 ml @ 100 mls/hr Q10H IV Last administered on 03/24/25at 06:02; Start 03/23/25 at 07:00; Stop 03/24/25 at 06:39; Status DC Hydromorphone HCl 0.5 mg Q4H PRN IVP Last administered on 03/24/25at 22:26; Start 03/23/25 at 14:00; Stop 03/25/25 at 12:32; Status DC Metoprolol Tartrate 12.5 mg Q8H5 PO Last administered on 03/27/25at 05:49; Start 03/23/25 at 21:00; Stop 04/22/25 at 08:59 Pharmacy Profile Note 1 each [place] [facility] [place] Start 03/23/25 at 16:30; Stop 03/25/25 at 12:28; Status DC Apixaban 2.5 mg BID PO Last administered on 03/24/25at 10:10; Start 03/23/25 at 21:00; Stop 03/24/25 at 12:24; Status DC Midodrine 10 mg DAILY18 PO Last administered on 03/26/25at 18:19; Start 03/23/25 at 18:00; Stop 04/22/25 at 17:59 Midodrine 10 mg DAILY06 PO Last administered on 03/26/25at 05:28; Start 03/24/25 at 06:00; Stop 04/23/25 at 05:59 Midodrine 10 mg DAILY10 PO Last administered on 03/25/25at 10:29; Start 03/24/25 at 10:00; Stop 04/23/25 at 09:59 Midodrine 10 mg DAILY14 PO Last administered on 03/26/25at 14:18; Start 03/24/25 at 14:00; Stop 04/23/25 at 13:59 Sodium Chloride 1,000 ml @ 60 mls/hr [id number] IV Last administered on 03/27/25at 00:46; Start 03/24/25 at 07:00; Stop 04/23/25 at 06:59 Vancomycin HCl 1 gm ONCALL ONCE IV; Start 03/27/25 at 06:00; Stop 03/26/25 at 14:02; Status DC Enoxaparin Sodium 90 mg Q24H SQ Last administered on 03/26/25at 09:03; Start 03/25/25 at 09:00; Stop 04/24/25 at 08:59 Vancomycin HCl 1 gm ONCALL ONCE IV; Start 03/27/25 at 06:00; Stop 03/27/25 at 06:01; Status DC Vancomycin HCl 750 mg Q24H IVPB; Start 03/28/25 at 10:00; Stop 04/07/25 at 09:59 Acetaminophen/ Hydrocodone Bitart 1 tab Q4H PRN PO Last administered on 03/26/25at 16:25; Start 03/26/25 at 15:00; Stop 03/31/25 at 14:59 CHAR STEINER MD Mar 27, 2025 08:33
[2025-03-27] MEDS ORDERED: SUCCINYLCHOLINE CHLORIDE 20 MG/ML 10 ML VIAL ONE (12:01)
[2025-03-27] MEDS ORDERED: ETOMIDATE 20MG VIAL ONE (12:01)
[2025-03-27] MEDS ORDERED: MIDAZOLAM HCL 1 MG/ML 2ML VIAL ONE (12:01)
[2025-03-27] MEDS ORDERED: LIDOCAINE PF 100MG/5ML (2%) SYRINGE 5ML ONE (12:02)
[2025-03-27] MEDS ORDERED: SODIUM BICARB 50MEQ 50ML VIAL 50 ML ONE (12:35)
[2025-03-27] MEDS ORDERED: IOHEXOL 350 MG/ML 100ML INFUS..BTL IV ONE (12:35)
[2025-03-27] MEDS ORDERED: LIDOCAINE HCL 1% MDV 50ML VIAL ONE (12:35)
[2025-03-27] MEDS ORDERED: LIDOCAINE HCL 400MG/20ML VIAL ONE (12:35)
[2025-03-27] MEDS ORDERED: HEParin-NS 1,000 UNIT/500 ML 1,000 ML IV ONE (12:36)
[2025-03-27] MEDS ORDERED: VANCOMYCIN 1G/250ML KIT 500 ML IV ONE (12:58)
[2025-03-27] MEDS: SUGAMMADEX SODIUM 200 MG/2 ML VIAL IV ONE (17:25)
[2025-03-28] VITALS (11 sets, daily range): BP systolic 109–130; BP diastolic 65–84; PULSE 85–110; RESP 17–20; TEMP 97.4–98.5; O2SAT 96–98
[2025-03-28] MEDS: VANCOMYCIN 750MG VIAL IVPB SCH (09:29)
--- NOTE | 2025-03-28 12:13 | PN ---
Postop day 7. Vital signs stable. The patient continues in the ICU. She has a pacemaker placed yesterday and the patient reports that today she is feeling much better. She is awake, alert and oriented. Her extremity shows a dressing that is still functioning but because is day seven I have remove it today and is noted that the wound is well approximated and there is no bleeding. Distal neurovascular exam remains normal. Assessment: Status post right total knee arthroplasty for treatment of posterior knee dislocation status post fall Plan: The patient will be placed back on baby aspirin in the meantime. I spoke to Dr. Wesley who is still deciding to use Eliquis on her but wants to wait at least until Tuesday. I am going to start the patient on baby aspirin today at least for the next48 hours and if the Eliquis is a started then we will discontinue. I am going to also ask permission for the patient to be getting out of bed to chair by physical therapy before he gets transferred to the floor. Vitals/Labs Vital Signs Date Time Temp Pulse Resp B/P (MAP) Pulse Ox O2 Delivery O2 Flow Rate FiO2 03/28/25 11:00 97.9 91 18 127/84 94 Nasal Cannula 03/28/25 08:15 0 21 Medications Current Medications Home Med 2 INHALATIONS BID BID IH Last administered on 03/28/25at 09:31; Start 03/16/25 at 09:00; Stop 04/15/25 at 08:59 Lidocaine 1 each DAILY TP Last administered on 03/28/25at 09:29; Start 03/16/25 at 09:00; Stop 04/15/25 at 08:59 Azithromycin 250 mg QMOFR PO Last administered on 03/25/25at 08:27; Start 03/18/25 at 09:00; Stop 03/28/25 at 08:59; Status DC Acetaminophen 650 mg Q6H PRN PO; Start 03/15/25 at 21:00; Stop 04/14/25 at 20:59 Acetaminophen/ Hydrocodone Bitart 1 tab Q6H PRN PO Last administered on 03/16/25at 21:00; Start 03/15/25 at 21:00; Stop 03/20/25 at 20:59; Status DC Aspirin 81 mg DAILY PO Last administered on 03/16/25at 09:35; Start 03/16/25 at 09:00; Stop 03/16/25 at 16:20; Status DC Hydromorphone HCl 0.5 mg Q4H PRN IVP Last administered on 03/20/25at 13:28; Start 03/15/25 at 21:00; Stop 03/20/25 at 20:59; Status DC Enoxaparin Sodium 30 mg DAILY SQ Last administered on 03/16/25at 09:39; Start 03/16/25 at 09:00; Stop 03/16/25 at 16:24; Status DC Metoprolol Tartrate 5 mg Q5M PRN IV Last administered on 03/18/25at 00:23; Start 03/15/25 at 21:00 Diltiazem HCl 30 mg Q8H5 PO Last administered on 03/16/25at 14:08; Start 03/15/25 at 21:00; Stop 03/16/25 at 16:20; Status DC Furosemide 40 mg Q48H PO Last administered on 03/22/25at 10:48; Start 03/18/25 at 09:00; Stop 03/25/25 at 12:28; Status DC Dronedarone 400 mg BID PO Last administered on 03/23/25at 09:48; Start 03/15/25 at 21:00; Stop 03/23/25 at 17:18; Status DC Ipratropium [place] 0.5 MG BID IH Last administered on 03/17/25at 06:30; Start 03/15/25 at 21:00; Stop 03/17/25 at 11:07; Status DC Lactulose 20 gm DAILY PO Last administered on 03/28/25at 09:30; Start 03/16/25 at 09:00; Stop 04/15/25 at 08:59 Pantoprazole Sodium 40 mg DAILY PO Last administered on 03/28/25at 09:29; Start 03/16/25 at 09:00; Stop 04/15/25 at 08:59 Sennosides 1 tab HS PO Last administered on 03/27/25at 22:28; Start 03/15/25 at 21:00; Stop 04/14/25 at 20:59 Buspirone HCl 10 mg HS PO Last administered on 03/27/25at 22:28; Start 03/15/25 at 21:00; Stop 04/14/25 at 20:59 Melatonin 10 mg HS PO Last administered on 03/27/25at 22:28; Start 03/15/25 at 21:00; Stop 04/14/25 at 20:59 Home Med HS PO Last administered on 03/15/25at 22:59; Start 03/16/25 at 21:00; Stop 03/16/25 at 03:20; Status DC Home Med BID NASAL; Start 03/16/25 at 09:00; Stop 04/15/25 at 08:59 Baclofen 20 mg HS PRN PO Last administered on 03/17/25at 20:48; Start 03/15/25 at 21:00; Stop 04/14/25 at 20:59 Vitamin B Complex 1,000 mcg DAILY PO; Start 03/16/25 at 09:00; Stop 03/17/25 at 02:33; Status DC Dextrose 50 ml AD PRN IV; Start 03/15/25 at 21:00; Stop 04/14/25 at 20:59 Glucagon 1 mg AD PRN IM; Start 03/15/25 at 21:00; Stop 04/14/25 at 20:59 Magnesium Sulfate 50 ml @ 0 mls/hr PROTOCOL PRN IV Last administered on 03/25/25at 23:21; Start 03/15/25 at 21:00; Stop 04/14/25 at 20:59 Potassium Chloride 100 ml @ 100 mls/hr AD PRN IV; Start 03/15/25 at 21:00; Stop 04/14/25 at 20:59 Potassium Chloride 20 meq AD PRN PO; Start 03/15/25 at 21:00; Stop 04/14/25 at 20:59 Potassium Chloride 20 meq AD PRN PO; Start 03/15/25 at 21:00; Stop 04/14/25 at 20:59 Potassium Chloride 100 ml @ 50 mls/hr AD PRN IV; Start 03/15/25 at 21:00; Stop 03/16/25 at 06:38; Status DC Metoprolol Tartrate 25 mg TID PO Last administered on 03/15/25at 22:20; Start 03/15/25 at 21:00; Stop 03/16/25 at 06:38; Status DC Multivitamins Therapeutic 1 tab DAILY PO Last administered on 03/28/25at 09:29; Start 03/16/25 at 09:00; Stop 04/15/25 at 08:59 Ondansetron HCl 4 mg Q4HPRN PRN IVP; Start 03/15/25 at 21:00; Stop 03/21/25 at 14:11; Status DC Home Med BIDMEALS PO Last administered on 03/26/25at 18:20; Start 03/16/25 at 21:00; Stop 04/15/25 at 20:59 Ferrous Fumarate 324 mg ONCE ONCE PO Last administered on 03/16/25at 12:03; Start 03/16/25 at 10:00; Stop 03/16/25 at 10:01; Status DC Diltiazem HCl 30 mg Q6H PO Last administered on 03/18/25at 01:57; Start 03/16/25 at 20:00; Stop 03/18/25 at 07:08; Status DC Heparin Sodium (Porcine) *calculation based on ACTUAL B... AD PRN IV Last administered on 03/21/25at 19:55; Start 03/16/25 at 17:30; Stop 03/23/25 at 21:16; Status DC Heparin Sodium/ Dextrose 250 ml @ 0 mls/hr Q6H IV Last administered on 03/23/25at 01:38; Start 03/16/25 at 17:30; Stop 03/23/25 at 21:16; Status DC Home Med DAILY PO Last administered on 03/28/25at 09:32; Start 03/17/25 at 09:00; Stop 04/16/25 at 08:59 Acetylcysteine 20 mg Q8H5 IH; Start 03/17/25 at 13:00; Stop 03/17/25 at 10:57; Status DC Ipratropium [place] 0.5 MG Q8H5 IH Last administered on 03/28/25at 07:11; Start 03/17/25 at 13:00; Stop 04/16/25 at 12:59 Sodium Chloride 4 ml STK-MED ONCE IH Last administered on 03/17/25at 13:39; Start 03/17/25 at 13:25; Stop 03/17/25 at 13:25; Status DC Acetylcysteine 200 mg Q8H5 IH Last administered on 03/25/25at 06:58; Start 03/17/25 at 14:00; Stop 03/25/25 at 11:01; Status DC Cefepime HCl 2 gm Q24H IVPB Last administered on 03/26/25at 16:25; Start 03/17/25 at 15:30; Stop 03/27/25 at 15:29; Status DC Sodium Chloride 4 ml STK-MED ONCE IH Last administered on 03/17/25at 18:26; Start 03/17/25 at 17:57; Stop 03/17/25 at 17:57; Status DC Lactulose 20 gm ONCE ONCE PO Last administered on 03/17/25at 20:56; Start 03/17/25 at 20:55; Stop 03/17/25 at 20:56; Status DC Sodium Chloride 4 ml STK-MED ONCE IH Last administered on 03/17/25at 23:29; Start 03/17/25 at 23:05; Stop 03/17/25 at 23:05; Status DC Metoprolol Tartrate 25 mg TID PO Last administered on 03/22/25at 14:49; Start 03/18/25 at 09:00; Stop 03/23/25 at 06:43; Status DC Regadenoson 0.4 mg STK-MED ONCE IVP Last administered on 03/18/25at 09:49; Start 03/18/25 at 09:32; Stop 03/18/25 at 09:32; Status DC Pharmacy Profile Note 1 each ONCE MISC; Start 03/19/25 at 10:30; Stop 03/19/25 at 10:23; Status DC Vancomycin HCl 1 each AD IV; Start 03/19/25 at 10:30; Stop 04/02/25 at 10:29 Vancomycin HCl 250 ml @ 125 mls/hr Q24H IV Last administered on 03/20/25at 13:21; Start 03/19/25 at 11:00; Stop 03/21/25 at 14:14; Status DC Cefazolin Sodium 2 gm ONCALL IVPB Last administered on 03/21/25at 09:06; Start 03/21/25 at 08:00; Stop 03/21/25 at 06:19; Status DC Hydromorphone HCl 0.5 mg Q4H PRN IVP Last administered on 03/20/25at 22:59; Start 03/20/25 at 23:00; Stop 03/21/25 at 14:17; Status DC Acetaminophen/ Hydrocodone Bitart 1 tab Q6H PRN PO; Start 03/20/25 at 23:00; Stop 03/21/25 at 12:57; Status DC Cefazolin Sodium 2 gm ONCALL IVPB; Start 03/21/25 at 06:30; Stop 03/21/25 at 14:11; Status DC Cefazolin Sodium 1 gm STK-MED ONCE .ROUTE; Start 03/21/25 at 07:00; Stop 03/21/25 at 07:00; Status DC Vancomycin HCl 0 ml @ As Directed STK-MED ONCE IV; Start 03/21/25 at 07:00; Stop 03/21/25 at 07:00; Status DC Lidocaine HCl 100 mg STK-MED ONCE .ROUTE; Start 03/21/25 at 07:14; Stop 03/21/25 at 07:14; Status DC Phenylephrine HCl 10 mg STK-MED ONCE IV; Start 03/21/25 at 07:14; Stop 03/21/25 at 07:14; Status DC Ondansetron HCl 4 mg STK-MED ONCE .ROUTE; Start 03/21/25 at 07:14; Stop 03/21/25 at 07:14; Status DC Ropivacaine 150 mg STK-MED ONCE .ROUTE; Start 03/21/25 at 07:14; Stop 03/21/25 at 07:14; Status DC Succinylcholine Chloride 200 mg STK-MED ONCE .ROUTE; Start 03/21/25 at 07:14; Stop 03/21/25 at 07:14; Status DC Ephedrine Sulfate 50 mg STK-MED ONCE .ROUTE; Start 03/21/25 at 07:14; Stop 03/21/25 at 07:15; Status DC Midazolam HCl 2 mg STK-MED ONCE .ROUTE; Start 03/21/25 at 07:15; Stop 03/21/25 at 07:15; Status DC Propofol 200 mg STK-MED ONCE IV; Start 03/21/25 at 07:15; Stop 03/21/25 at 07:15; Status DC Ketamine HCl 50 mg STK-MED ONCE .ROUTE; Start 03/21/25 at 07:15; Stop 03/21/25 at 07:15; Status DC Rocuronium [place] 50 mg STK-MED ONCE .ROUTE; Start 03/21/25 at 07:15; Stop 03/21/25 at 07:15; Status DC Fentanyl Citrate 100 mcg STK-MED ONCE .ROUTE; Start 03/21/25 at 07:15; Stop 03/21/25 at 07:15; Status DC Ondansetron HCl 4 mg AD PRN IVP; Start 03/21/25 at 08:00; Stop 03/21/25 at 10:51; Status DC Metoclopramide HCl 10 mg AD PRN IVP; Start 03/21/25 at 08:00; Stop 03/21/25 at 10:51; Status DC Promethazine HCl 25 mg AD PRN IM; Start 03/21/25 at 08:00; Stop 03/21/25 at 10:51; Status DC Ketorolac Tromethamine 30 mg AD PRN IV; Start 03/21/25 at 08:00; Stop 03/21/25 at 10:51; Status DC Morphine Sulfate 2 mg AD PRN IVP; Start 03/21/25 at 08:00; Stop 03/21/25 at 10:51; Status DC Fentanyl Citrate 25 mcg Q5MIN PRN IVP; Start 03/21/25 at 08:00; Stop 03/21/25 at 10:51; Status DC Naloxone HCl 0.1 mg AD PRN IVP; Start 03/21/25 at 08:00; Stop 03/21/25 at 10:51; Status DC Acetaminophen 100 ml @ As Directed STK-MED ONCE .ROUTE; Start 03/21/25 at 07: 49; Stop 03/21/25 at 07:50; Status DC Albumin Human 250 ml @ As Directed STK-MED ONCE IV; Start 03/21/25 at 08:18; Stop 03/21/25 at 08:18; Status DC Albumin Human 250 ml @ As Directed STK-MED ONCE IV; Start 03/21/25 at 08:34; Stop 03/21/25 at 08:34; Status DC Cefazolin Sodium 3 gm STK-MED ONCE IRRIG Last administered on 03/21/25at 09:51; Start 03/21/25 at 09:51; Stop 03/21/25 at 09:56; Status DC Rocuronium [place] 50 mg STK-MED ONCE .ROUTE; Start 03/21/25 at 10:20; Stop 03/21/25 at 10:21; Status DC Fentanyl Citrate 100 mcg STK-MED ONCE .ROUTE; Start 03/21/25 at 10:35; Stop 03/21/25 at 10:35; Status DC Fentanyl Citrate 100 mcg STK-MED ONCE .ROUTE; Start 03/21/25 at 12:23; Stop 03/21/25 at 12:24; Status DC Ondansetron HCl 4 mg AD PRN IVP; Start 03/21/25 at 13:00; Stop 03/21/25 at 14:11; Status DC Metoclopramide HCl 10 mg AD PRN IVP; Start 03/21/25 at 13:00; Stop 03/21/25 at 14:15; Status DC Promethazine HCl 25 mg AD PRN IM; Start 03/21/25 at 13:00; Stop 03/21/25 at 14:11; Status DC Ketorolac Tromethamine 30 mg AD PRN IV; Start 03/21/25 at 13:00; Stop 03/21/25 at 14:11; Status DC Morphine Sulfate 2 mg AD PRN IVP; Start 03/21/25 at 13:00; Stop 03/21/25 at 14:11; Status DC Fentanyl Citrate 25 mcg Q5MIN PRN IVP; Start 03/21/25 at 13:00; Stop 03/21/25 at 14:11; Status DC Naloxone HCl 0.1 mg AD PRN IVP; Start 03/21/25 at 13:00; Stop 03/21/25 at 14:11; Status DC Sodium Chloride 1,000 ml @ 100 mls/hr Q10H IV Last administered on 03/22/25at 10:49; Start 03/21/25 at 13:00; Stop 03/22/25 at 12:59; Status DC Polyethylene Glycol 17 gm DAILY PO Last administered on 03/28/25at 09:29; Start 03/22/25 at 09:00; Stop 04/21/25 at 08:59 Bisacodyl 10 mg DAILY PRN RC Last administered on 03/24/25at 20:40; Start 03/24/25 at 13:00; Stop 04/23/25 at 12:59 Ketorolac Tromethamine 15 mg Q6H PRN IV Last administered on 03/22/25at 10:51; Start 03/21/25 at 13:00; Stop 03/26/25 at 12:59; Status DC Famotidine 20 mg Q48H PO Last administered on 03/27/25at 22:27; Start 03/21/25 at 21:00; Stop 04/20/25 at 20:59 Ferrous Fumarate 324 mg DAILY PRN PO; Start 03/21/25 at 13:00; Stop 04/20/25 at 12:59 Temazepam 15 mg HS PRN PO; Start 03/21/25 at 13:00; Stop 04/20/25 at 12:59 Ondansetron HCl 4 mg Q6H PRN IVP; Start 03/21/25 at 13:00; Stop 04/20/25 at 12:59 Calcium Carbonate 500 mg Q12H PRN PO Last administered on 03/22/25at 14:53; Start 03/21/25 at 13:00; Stop 04/20/25 at 12:59 Diphenhydramine HCl 25 mg Q6H PRN IVP; Start 03/21/25 at 13:00; Stop 04/20/25 at 12:59 Acetaminophen/ Hydrocodone Bitart Q4H PRN PO Last administered on 03/25/25at 10:49; Start 03/21/25 at 13:00; Stop 03/26/25 at 12:59; Status DC Vancomycin HCl 250 ml @ 125 mls/hr Q24H IV Last administered on 03/25/25at 15:36; Start 03/21/25 at 14:30; Stop 03/26/25 at 14:04; Status DC Hydromorphone HCl 0.5 mg Q4H PRN IVP Last administered on 03/22/25at 14:50; Start 03/21/25 at 20:00; Stop 03/23/25 at 13:47; Status DC Metoprolol Tartrate 12.5 mg BID PO Last administered on 03/23/25at 09:48; Start 03/23/25 at 09:00; Stop 03/23/25 at 17:18; Status DC Sodium Chloride 1,000 ml @ 100 mls/hr Q10H IV Last administered on 03/24/25at 06:02; Start 03/23/25 at 07:00; Stop 03/24/25 at 06:39; Status DC Hydromorphone HCl 0.5 mg Q4H PRN IVP Last administered on 03/24/25at 22:26; Start 03/23/25 at 14:00; Stop 03/25/25 at 12:32; Status DC Metoprolol Tartrate 12.5 mg Q8H5 PO Last administered on 03/27/25at 05:49; Start 03/23/25 at 21:00; Stop 03/27/25 at 17:44; Status DC Pharmacy Profile Note 1 each [place] [facility] [place] Start 03/23/25 at 16:30; Stop 03/25/25 at 12:28; Status DC Apixaban 2.5 mg BID PO Last administered on 03/24/25at 10:10; Start 03/23/25 at 21:00; Stop 03/24/25 at 12:24; Status DC Midodrine 10 mg DAILY18 PO Last administered on 03/26/25at 18:19; Start 03/23/25 at 18:00; Stop 04/22/25 at 17:59 Midodrine 10 mg DAILY06 PO Last administered on 03/28/25at 06:42; Start 03/24/25 at 06:00; Stop 04/23/25 at 05:59 Midodrine 10 mg DAILY10 PO Last administered on 03/28/25at 09:29; Start 03/24/25 at 10:00; Stop 04/23/25 at 09:59 Midodrine 10 mg DAILY14 PO Last administered on 03/26/25at 14:18; Start 03/24/25 at 14:00; Stop 04/23/25 at 13:59 Sodium Chloride 1,000 ml @ 60 mls/hr [id number] IV Last administered on 03/27/25at 00:46; Start 03/24/25 at 07:00; Stop 04/23/25 at 06:59 Vancomycin HCl 1 gm ONCALL ONCE IV; Start 03/27/25 at 06:00; Stop 03/26/25 at 14:02; Status DC Enoxaparin Sodium 90 mg Q24H SQ Last administered on 03/26/25at 09:03; Start 03/25/25 at 09:00; Stop 03/27/25 at 17:44; Status DC Vancomycin HCl 1 gm ONCALL ONCE IV; Start 03/27/25 at 06:00; Stop 03/27/25 at 06:01; Status DC Vancomycin HCl 750 mg Q24H IVPB Last administered on 03/28/25at 09:29; Start 03/28/25 at 10:00; Stop 04/07/25 at 09:59 Acetaminophen/ Hydrocodone Bitart 1 tab Q4H PRN PO Last administered on 03/28/25at 11:11; Start 03/26/25 at 15:00; Stop 03/31/25 at 14:59 Dexamethasone Sodium Phosphate 10 mg STK-MED ONCE .ROUTE; Start 03/27/25 at 12:00; Stop 03/27/25 at 12:00; Status DC Ondansetron HCl 4 mg STK-MED ONCE .ROUTE; Start 03/27/25 at 12:01; Stop 03/27/25 at 12:00; Status DC Etomidate 20 mg STK-MED ONCE .ROUTE; Start 03/27/25 at 12:01; Stop 03/27/25 at 12:00; Status DC Propofol 200 mg STK-MED ONCE IV; Start 03/27/25 at 12:01; Stop 03/27/25 at 12:01; Status DC Ketamine HCl 50 mg STK-MED ONCE .ROUTE; Start 03/27/25 at 12:01; Stop 03/27/25 at 12:01; Status DC Succinylcholine Chloride 200 mg STK-MED ONCE .ROUTE; Start 03/27/25 at 12:01; Stop 03/27/25 at 12:01; Status DC Midazolam HCl 2 mg STK-MED ONCE .ROUTE; Start 03/27/25 at 12:01; Stop 03/27/25 at 12:01; Status DC Ephedrine Sulfate 50 mg STK-MED ONCE .ROUTE; Start 03/27/25 at 12:01; Stop 03/27/25 at 12:02; Status DC Rocuronium [place] 50 mg STK-MED ONCE .ROUTE; Start 03/27/25 at 12:01; Stop 03/27/25 at 12:02; Status DC Phenylephrine HCl 10 mg STK-MED ONCE IV; Start 03/27/25 at 12:02; Stop 03/27/25 at 12:02; Status DC Fentanyl Citrate 100 mcg STK-MED ONCE .ROUTE; Start 03/27/25 at 12:02; Stop 03/27/25 at 12:02; Status DC Fentanyl Citrate 100 mcg STK-MED ONCE .ROUTE; Start 03/27/25 at 12:02; Stop 03/27/25 at 12:02; Status DC Lidocaine HCl 100 mg STK-MED ONCE .ROUTE; Start 03/27/25 at 12:02; Stop 03/27/25 at 12:03; Status DC Lidocaine HCl 20 ml STK-MED ONCE .ROUTE; Start 03/27/25 at 12:35; Stop 03/27/25 at 12:35; Status DC Lidocaine HCl 50 ml STK-MED ONCE .ROUTE; Start 03/27/25 at 12:35; Stop 03/27/25 at 12:35; Status DC Sodium Bicarbonate 50 ml @ As Directed STK-MED ONCE .ROUTE; Start 03/27/25 at 12:35; Stop 03/27/25 at 12:36; Status DC Iohexol 35,000 mg STK-MED ONCE IV; Start 03/27/25 at 12:35; Stop 03/27/25 at 12:36; Status DC Bupivacaine HCl 2.5 mg STK-MED ONCE IJ; Start 03/27/25 at 12:36; Stop 03/27/25 at 12:36; Status DC Heparin Sodium/ Sodium Chloride 1,000 ml @ As Directed STK-MED ONCE IV; Start 03/27/25 at 12:36; Stop 03/27/25 at 12:36; Status DC Vancomycin HCl 500 ml @ As Directed STK-MED ONCE IV; Start 03/27/25 at 12:58; Stop 03/27/25 at 12:58; Status DC Metoprolol Succinate 25 mg DAILY PO Last administered on 03/28/25at 09:29; Start 03/28/25 at 09:00; Stop 04/27/25 at 08:59 ALEKSANDR GARCIA MD Mar 28, 2025 12:13
--- NOTE | 2025-03-28 13:07 | PN ---
The patient was transferred from [facility] for assessment and treatment of right prosthetic knee dislocation post fall. The patient was evaluated by Dr. Armstrong, Dr. Moura, and Dr. Milian at [facility] and they referred the patient to a higher level of care facility with an orthopedic that can perform surgery on her knee. The patient had sustained a recent fall from ground level with trauma of her right knee and a dislocation she was evaluated initially in [facility] management with analgesics and immobilizer. After lengthy process of consulting different orthopedics, we presented the case to Dr. Brown who agreed to accept the patient and manage the dislocation of the left knee. Patient was seen and evaluated at bedside. She denies chest pain or shortness of breath or dizziness. She has bilateral lower extremity edema, denies easy bruising or bleeding. There is a plan for placement of pacemaker in the morning Patient have right sided ecchymosis. PE GENERAL: No acute respiratory distress. VITAL SIGNS: Reviewed and stable. HEENT: The sclerae are clear. The pupils are equal and reactive to light. The oropharyngeal cavity is within normal limits. NECK: Supple without lymphadenopathy. CHEST: Lung is clear bilaterally there is no wheezing or crackles. HEART: Sounds are regular and rhythmic. ABDOMEN: No guarding or rigidity. Bowel sounds positive. EXTREMITIES: No pitting edema. No petechial lesions or bruises. SKIN: No bruises, rash, or petechial lesions. NEUROLOGICAL: The patient is alert and oriented. No focal deficits. Muscle strength is 5/5. LYMPH NODES: There is no lymphadenopathy could be felt in the neck, supraclavicular, or axillary. IMPRESSION 1. Anemia. Hemoglobin level 9.0 g/deciliter. Peripheral blood smear showed microcytic hypochromic red blood cell. 2. Elevated PTT 3. A fib currently on lovenox 4. s/p revised total knee arthroplasty 5. Arrhythmia and there is plan for pacemaker to be inserted in the morning PLAN 1. Status post pacemaker insertion. 2. This patient actually was receiving Lovenox with PTT was prolonged. There is no need for any studies. PTT is corrected at this time 3. There was hypersegmented neutrophils. This patient to Continue on folic acid 1 mg p.o. daily and vitamin B12 1000 mcg p.o. daily. 4. This patient could benefit from Procrit especially with the patient have anemia of chronic disease. 5. No need for blood product transfusion Vitals/Labs Vital Signs Date Time Temp Pulse Resp B/P (MAP) Pulse Ox O2 Delivery O2 Flow Rate FiO2 03/28/25 11:00 97.9 91 18 127/84 94 Nasal Cannula 03/28/25 08:15 0 21 Medications Current Medications Home Med 2 INHALATIONS BID BID IH Last administered on 03/28/25at 09:31; Start 03/16/25 at 09:00; Stop 04/15/25 at 08:59 Lidocaine 1 each DAILY TP Last administered on 03/28/25at 09:29; Start 03/16/25 at 09:00; Stop 04/15/25 at 08:59 Azithromycin 250 mg QMOFR PO Last administered on 03/25/25at 08:27; Start 03/18/25 at 09:00; Stop 03/28/25 at 08:59; Status DC Acetaminophen 650 mg Q6H PRN PO; Start 03/15/25 at 21:00; Stop 04/14/25 at 20:59 Acetaminophen/ Hydrocodone Bitart 1 tab Q6H PRN PO Last administered on 03/16/25at 21:00; Start 03/15/25 at 21:00; Stop 03/20/25 at 20:59; Status DC Aspirin 81 mg DAILY PO Last administered on 03/16/25at 09:35; Start 03/16/25 at 09:00; Stop 03/16/25 at 16:20; Status DC Hydromorphone HCl 0.5 mg Q4H PRN IVP Last administered on 03/20/25at 13:28; Start 03/15/25 at 21:00; Stop 03/20/25 at 20:59; Status DC Enoxaparin Sodium 30 mg DAILY SQ Last administered on 03/16/25at 09:39; Start 03/16/25 at 09:00; Stop 03/16/25 at 16:24; Status DC Metoprolol Tartrate 5 mg Q5M PRN IV Last administered on 03/18/25at 00:23; Start 03/15/25 at 21:00 Diltiazem HCl 30 mg Q8H5 PO Last administered on 03/16/25at 14:08; Start 03/15/25 at 21:00; Stop 03/16/25 at 16:20; Status DC Furosemide 40 mg Q48H PO Last administered on 03/22/25at 10:48; Start 03/18/25 at 09:00; Stop 03/25/25 at 12:28; Status DC Dronedarone 400 mg BID PO Last administered on 03/23/25at 09:48; Start 03/15/25 at 21:00; Stop 03/23/25 at 17:18; Status DC Ipratropium Valders 0.5 MG BID IH Last administered on 03/17/25at 06:30; Start 03/15/25 at 21:00; Stop 03/17/25 at 11:07; Status DC Lactulose 20 gm DAILY PO Last administered on 03/28/25at 09:30; Start 03/16/25 at 09:00; Stop 04/15/25 at 08:59 Pantoprazole Sodium 40 mg DAILY PO Last administered on 03/28/25at 09:29; Start 03/16/25 at 09:00; Stop 04/15/25 at 08:59 Sennosides 1 tab HS PO Last administered on 03/27/25at 22:28; Start 03/15/25 at 21:00; Stop 04/14/25 at 20:59 Buspirone HCl 10 mg HS PO Last administered on 03/27/25at 22:28; Start 03/15/25 at 21:00; Stop 04/14/25 at 20:59 Melatonin 10 mg HS PO Last administered on 03/27/25at 22:28; Start 03/15/25 at 21:00; Stop 04/14/25 at 20:59 Home Med HS PO Last administered on 03/15/25at 22:59; Start 03/16/25 at 21:00; Stop 03/16/25 at 03:20; Status DC Home Med BID NASAL; Start 03/16/25 at 09:00; Stop 04/15/25 at 08:59 Baclofen 20 mg HS PRN PO Last administered on 03/17/25at 20:48; Start 03/15/25 at 21:00; Stop 04/14/25 at 20:59 Vitamin B Complex 1,000 mcg DAILY PO; Start 03/16/25 at 09:00; Stop 03/17/25 at 02:33; Status DC Dextrose 50 ml AD PRN IV; Start 03/15/25 at 21:00; Stop 04/14/25 at 20:59 Glucagon 1 mg AD PRN IM; Start 03/15/25 at 21:00; Stop 04/14/25 at 20:59 Magnesium Sulfate 50 ml @ 0 mls/hr PROTOCOL PRN IV Last administered on 03/25/25at 23:21; Start 03/15/25 at 21:00; Stop 04/14/25 at 20:59 Potassium Chloride 100 ml @ 100 mls/hr AD PRN IV; Start 03/15/25 at 21:00; Stop 04/14/25 at 20:59 Potassium Chloride 20 meq AD PRN PO; Start 03/15/25 at 21:00; Stop 04/14/25 at 20:59 Potassium Chloride 20 meq AD PRN PO; Start 03/15/25 at 21:00; Stop 04/14/25 at 20:59 Potassium Chloride 100 ml @ 50 mls/hr AD PRN IV; Start 03/15/25 at 21:00; Stop 03/16/25 at 06:38; Status DC Metoprolol Tartrate 25 mg TID PO Last administered on 03/15/25at 22:20; Start 03/15/25 at 21:00; Stop 03/16/25 at 06:38; Status DC Multivitamins Therapeutic 1 tab DAILY PO Last administered on 03/28/25at 09:29; Start 03/16/25 at 09:00; Stop 04/15/25 at 08:59 Ondansetron HCl 4 mg Q4HPRN PRN IVP; Start 03/15/25 at 21:00; Stop 03/21/25 at 14:11; Status DC Home Med BIDMEALS PO Last administered on 03/26/25at 18:20; Start 03/16/25 at 21:00; Stop 04/15/25 at 20:59 Ferrous Fumarate 324 mg ONCE ONCE PO Last administered on 03/16/25at 12:03; Start 03/16/25 at 10:00; Stop 03/16/25 at 10:01; Status DC Diltiazem HCl 30 mg Q6H PO Last administered on 03/18/25at 01:57; Start 03/16/25 at 20:00; Stop 03/18/25 at 07:08; Status DC Heparin Sodium (Porcine) *calculation based on ACTUAL B... AD PRN IV Last administered on 03/21/25at 19:55; Start 03/16/25 at 17:30; Stop 03/23/25 at 21:16; Status DC Heparin Sodium/ Dextrose 250 ml @ 0 mls/hr Q6H IV Last administered on 03/23/25at 01:38; Start 03/16/25 at 17:30; Stop 03/23/25 at 21:16; Status DC Home Med DAILY PO Last administered on 03/28/25at 09:32; Start 03/17/25 at 09:00; Stop 04/16/25 at 08:59 Acetylcysteine 20 mg Q8H5 IH; Start 03/17/25 at 13:00; Stop 03/17/25 at 10:57; Status DC Ipratropium Valders 0.5 MG Q8H5 IH Last administered on 03/28/25at 07:11; Start 03/17/25 at 13:00; Stop 04/16/25 at 12:59 Sodium Chloride 4 ml STK-MED ONCE IH Last administered on 03/17/25at 13:39; Start 03/17/25 at 13:25; Stop 03/17/25 at 13:25; Status DC Acetylcysteine 200 mg Q8H5 IH Last administered on 03/25/25at 06:58; Start 03/17/25 at 14:00; Stop 03/25/25 at 11:01; Status DC Cefepime HCl 2 gm Q24H IVPB Last administered on 03/26/25at 16:25; Start 03/17/25 at 15:30; Stop 03/27/25 at 15:29; Status DC Sodium Chloride 4 ml STK-MED ONCE IH Last administered on 03/17/25at 18:26; Start 03/17/25 at 17:57; Stop 03/17/25 at 17:57; Status DC Lactulose 20 gm ONCE ONCE PO Last administered on 03/17/25at 20:56; Start 03/17/25 at 20:55; Stop 03/17/25 at 20:56; Status DC Sodium Chloride 4 ml STK-MED ONCE IH Last administered on 03/17/25at 23:29; Start 03/17/25 at 23:05; Stop 03/17/25 at 23:05; Status DC Metoprolol Tartrate 25 mg TID PO Last administered on 03/22/25at 14:49; Start 03/18/25 at 09:00; Stop 03/23/25 at 06:43; Status DC Regadenoson 0.4 mg STK-MED ONCE IVP Last administered on 03/18/25at 09:49; Start 03/18/25 at 09:32; Stop 03/18/25 at 09:32; Status DC Pharmacy Profile Note 1 each ONCE MISC; Start 03/19/25 at 10:30; Stop 03/19/25 at 10:23; Status DC Vancomycin HCl 1 each AD IV; Start 03/19/25 at 10:30; Stop 04/02/25 at 10:29 Vancomycin HCl 250 ml @ 125 mls/hr Q24H IV Last administered on 03/20/25at 13:21; Start 03/19/25 at 11:00; Stop 03/21/25 at 14:14; Status DC Cefazolin Sodium 2 gm ONCALL IVPB Last administered on 03/21/25at 09:06; Start 03/21/25 at 08:00; Stop 03/21/25 at 06:19; Status DC Hydromorphone HCl 0.5 mg Q4H PRN IVP Last administered on 03/20/25at 22:59; Start 03/20/25 at 23:00; Stop 03/21/25 at 14:17; Status DC Acetaminophen/ Hydrocodone Bitart 1 tab Q6H PRN PO; Start 03/20/25 at 23:00; Stop 03/21/25 at 12:57; Status DC Cefazolin Sodium 2 gm ONCALL IVPB; Start 03/21/25 at 06:30; Stop 03/21/25 at 14:11; Status DC Cefazolin Sodium 1 gm STK-MED ONCE .ROUTE; Start 03/21/25 at 07:00; Stop 03/21/25 at 07:00; Status DC Vancomycin HCl 0 ml @ As Directed STK-MED ONCE IV; Start 03/21/25 at 07:00; Stop 03/21/25 at 07:00; Status DC Lidocaine HCl 100 mg STK-MED ONCE .ROUTE; Start 03/21/25 at 07:14; Stop 03/21/25 at 07:14; Status DC Phenylephrine HCl 10 mg STK-MED ONCE IV; Start 03/21/25 at 07:14; Stop 03/21/25 at 07:14; Status DC Ondansetron HCl 4 mg STK-MED ONCE .ROUTE; Start 03/21/25 at 07:14; Stop 03/21/25 at 07:14; Status DC Ropivacaine 150 mg STK-MED ONCE .ROUTE; Start 03/21/25 at 07:14; Stop 03/21/25 at 07:14; Status DC Succinylcholine Chloride 200 mg STK-MED ONCE .ROUTE; Start 03/21/25 at 07:14; Stop 03/21/25 at 07:14; Status DC Ephedrine Sulfate 50 mg STK-MED ONCE .ROUTE; Start 03/21/25 at 07:14; Stop 03/21/25 at 07:15; Status DC Midazolam HCl 2 mg STK-MED ONCE .ROUTE; Start 03/21/25 at 07:15; Stop 03/21/25 at 07:15; Status DC Propofol 200 mg STK-MED ONCE IV; Start 03/21/25 at 07:15; Stop 03/21/25 at 07:15; Status DC Ketamine HCl 50 mg STK-MED ONCE .ROUTE; Start 03/21/25 at 07:15; Stop 03/21/25 at 07:15; Status DC Rocuronium Valders 50 mg STK-MED ONCE .ROUTE; Start 03/21/25 at 07:15; Stop 03/21/25 at 07:15; Status DC Fentanyl Citrate 100 mcg STK-MED ONCE .ROUTE; Start 03/21/25 at 07:15; Stop 03/21/25 at 07:15; Status DC Ondansetron HCl 4 mg AD PRN IVP; Start 03/21/25 at 08:00; Stop 03/21/25 at 10:51; Status DC Metoclopramide HCl 10 mg AD PRN IVP; Start 03/21/25 at 08:00; Stop 03/21/25 at 10:51; Status DC Promethazine HCl 25 mg AD PRN IM; Start 03/21/25 at 08:00; Stop 03/21/25 at 10:51; Status DC Ketorolac Tromethamine 30 mg AD PRN IV; Start 03/21/25 at 08:00; Stop 03/21/25 at 10:51; Status DC Morphine Sulfate 2 mg AD PRN IVP; Start 03/21/25 at 08:00; Stop 03/21/25 at 10:51; Status DC Fentanyl Citrate 25 mcg Q5MIN PRN IVP; Start 03/21/25 at 08:00; Stop 03/21/25 at 10:51; Status DC Naloxone HCl 0.1 mg AD PRN IVP; Start 03/21/25 at 08:00; Stop 03/21/25 at 10:51; Status DC Acetaminophen 100 ml @ As Directed STK-MED ONCE .ROUTE; Start 03/21/25 at 07:49; Stop 03/21/25 at 07:50; Status DC Albumin Human 250 ml @ As Directed STK-MED ONCE IV; Start 03/21/25 at 08:18; Stop 03/21/25 at 08:18; Status DC Albumin Human 250 ml @ As Directed STK-MED ONCE IV; Start 03/21/25 at 08:34; Stop 03/21/25 at 08:34; Status DC Cefazolin Sodium 3 gm STK-MED ONCE IRRIG Last administered on 03/21/25at 09:51; Start 03/21/25 at 09:51; Stop 03/21/25 at 09:56; Status DC Rocuronium Valders 50 mg STK-MED ONCE .ROUTE; Start 03/21/25 at 10:20; Stop 03/21/25 at 10:21; Status DC Fentanyl Citrate 100 mcg STK-MED ONCE .ROUTE; Start 03/21/25 at 10:35; Stop 03/21/25 at 10:35; Status DC Fentanyl Citrate 100 mcg STK-MED ONCE .ROUTE; Start 03/21/25 at 12:23; Stop 03/21/25 at 12:24; Status DC Ondansetron HCl 4 mg AD PRN IVP; Start 03/21/25 at 13:00; Stop 03/21/25 at 14:11; Status DC Metoclopramide HCl 10 mg AD PRN IVP; Start 03/21/25 at 13:00; Stop 03/21/25 at 14:15; Status DC Promethazine HCl 25 mg AD PRN IM; Start 03/21/25 at 13:00; Stop 03/21/25 at 14:11; Status DC Ketorolac Tromethamine 30 mg AD PRN IV; Start 03/21/25 at 13:00; Stop 03/21/25 at 14:11; Status DC Morphine Sulfate 2 mg AD PRN IVP; Start 03/21/25 at 13:00; Stop 03/21/25 at 14:11; Status DC Fentanyl Citrate 25 mcg Q5MIN PRN IVP; Start 03/21/25 at 13:00; Stop 03/21/25 at 14:11; Status DC Naloxone HCl 0.1 mg AD PRN IVP; Start 03/21/25 at 13:00; Stop 03/21/25 at 14:11; Status DC Sodium Chloride 1,000 ml @ 100 mls/hr Q10H IV Last administered on 03/22/25at 10:49; Start 03/21/25 at 13:00; Stop 03/22/25 at 12:59; Status DC Polyethylene Glycol 17 gm DAILY PO Last administered on 03/28/25at 09:29; Start 03/22/25 at 09:00; Stop 04/21/25 at 08:59 Bisacodyl 10 mg DAILY PRN RC Last administered on 03/24/25at 20:40; Start 03/24/25 at 13:00; Stop 04/23/25 at 12:59 Ketorolac Tromethamine 15 mg Q6H PRN IV Last administered on 03/22/25at 10:51; Start 03/21/25 at 13:00; Stop 03/26/25 at 12:59; Status DC Famotidine 20 mg Q48H PO Last administered on 03/27/25at 22:27; Start 03/21/25 at 21:00; Stop 04/20/25 at 20:59 Ferrous Fumarate 324 mg DAILY PRN PO; Start 03/21/25 at 13:00; Stop 04/20/25 at 12:59 Temazepam 15 mg HS PRN PO; Start 03/21/25 at 13:00; Stop 04/20/25 at 12:59 Ondansetron HCl 4 mg Q6H PRN IVP; Start 03/21/25 at 13:00; Stop 04/20/25 at 12:59 Calcium Carbonate 500 mg Q12H PRN PO Last administered on 03/22/25at 14:53; Start 03/21/25 at 13:00; Stop 04/20/25 at 12:59 Diphenhydramine HCl 25 mg Q6H PRN IVP; Start 03/21/25 at 13:00; Stop 04/20/25 at 12:59 Acetaminophen/ Hydrocodone Bitart Q4H PRN PO Last administered on 03/25/25at 10:49; Start 03/21/25 at 13:00; Stop 03/26/25 at 12:59; Status DC Vancomycin HCl 250 ml @ 125 mls/hr Q24H IV Last administered on 03/25/25at 15:36; Start 03/21/25 at 14:30; Stop 03/26/25 at 14:04; Status DC Hydromorphone HCl 0.5 mg Q4H PRN IVP Last administered on 03/22/25at 14:50; Start 03/21/25 at 20:00; Stop 03/23/25 at 13:47; Status DC Metoprolol Tartrate 12.5 mg BID PO Last administered on 03/23/25at 09:48; Start 03/23/25 at 09:00; Stop 03/23/25 at 17:18; Status DC Sodium Chloride 1,000 ml @ 100 mls/hr Q10H IV Last administered on 03/24/25at 06:02; Start 03/23/25 at 07:00; Stop 03/24/25 at 06:39; Status DC Hydromorphone HCl 0.5 mg Q4H PRN IVP Last administered on 03/24/25at 22:26; Start 03/23/25 at 14:00; Stop 03/25/25 at 12:32; Status DC Metoprolol Tartrate 12.5 mg Q8H5 PO Last administered on 03/27/25at 05:49; Start 03/23/25 at 21:00; Stop 03/27/25 at 17:44; Status DC Pharmacy Profile Note 1 each [place] [facility] [place] Start 03/23/25 at 16:30; Stop 03/25/25 at 12:28; Status DC Apixaban 2.5 mg BID PO Last administered on 03/24/25at 10:10; Start 03/23/25 at 21:00; Stop 03/24/25 at 12:24; Status DC Midodrine 10 mg DAILY18 PO Last administered on 03/26/25at 18:19; Start 03/23/25 at 18:00; Stop 04/22/25 at 17:59 Midodrine 10 mg DAILY06 PO Last administered on 03/28/25at 06:42; Start 03/24/25 at 06:00; Stop 04/23/25 at 05:59 Midodrine 10 mg DAILY10 PO Last administered on 03/28/25at 09:29; Start 03/24/25 at 10:00; Stop 04/23/25 at 09:59 Midodrine 10 mg DAILY14 PO Last administered on 03/26/25at 14:18; Start 03/24/25 at 14:00; Stop 04/23/25 at 13:59 Sodium Chloride 1,000 ml @ 60 mls/hr [id number] IV Last administered on 03/27/25at 00:46; Start 03/24/25 at 07:00; Stop 04/23/25 at 06:59 Vancomycin HCl 1 gm ONCALL ONCE IV; Start 03/27/25 at 06:00; Stop 03/26/25 at 14:02; Status DC Enoxaparin Sodium 90 mg Q24H SQ Last administered on 03/26/25at 09:03; Start 03/25/25 at 09:00; Stop 03/27/25 at 17:44; Status DC Vancomycin HCl 1 gm ONCALL ONCE IV; Start 03/27/25 at 06:00; Stop 03/27/25 at 06:01; Status DC Vancomycin HCl 750 mg Q24H IVPB Last administered on 03/28/25at 09:29; Start 03/28/25 at 10:00; Stop 04/07/25 at 09:59 Acetaminophen/ Hydrocodone Bitart 1 tab Q4H PRN PO Last administered on 03/28/25at 11:11; Start 03/26/25 at 15:00; Stop 03/31/25 at 14:59 Dexamethasone Sodium Phosphate 10 mg STK-MED ONCE .ROUTE; Start 03/27/25 at 12:00; Stop 03/27/25 at 12:00; Status DC Ondansetron HCl 4 mg STK-MED ONCE .ROUTE; Start 03/27/25 at 12:01; Stop 03/27/25 at 12:00; Status DC Etomidate 20 mg STK-MED ONCE .ROUTE; Start 03/27/25 at 12:01; Stop 03/27/25 at 12:00; Status DC Propofol 200 mg STK-MED ONCE IV; Start 03/27/25 at 12:01; Stop 03/27/25 at 12:01; Status DC Ketamine HCl 50 mg STK-MED ONCE .ROUTE; Start 03/27/25 at 12:01; Stop 03/27/25 at 12:01; Status DC Succinylcholine Chloride 200 mg STK-MED ONCE .ROUTE; Start 03/27/25 at 12:01; Stop 03/27/25 at 12:01; Status DC Midazolam HCl 2 mg STK-MED ONCE .ROUTE; Start 03/27/25 at 12:01; Stop 03/27/25 at 12:01; Status DC Ephedrine Sulfate 50 mg STK-MED ONCE .ROUTE; Start 03/27/25 at 12:01; Stop 03/27/25 at 12:02; Status DC Rocuronium Valders 50 mg STK-MED ONCE .ROUTE; Start 03/27/25 at 12:01; Stop 03/27/25 at 12:02; Status DC Phenylephrine HCl 10 mg STK-MED ONCE IV; Start 03/27/25 at 12:02; Stop 03/27/25 at 12:02; Status DC Fentanyl Citrate 100 mcg STK-MED ONCE .ROUTE; Start 03/27/25 at 12:02; Stop 03/27/25 at 12:02; Status DC Fentanyl Citrate 100 mcg STK-MED ONCE .ROUTE; Start 03/27/25 at 12:02; Stop 03/27/25 at 12:02; Status DC Lidocaine HCl 100 mg STK-MED ONCE .ROUTE; Start 03/27/25 at 12:02; Stop 03/27/25 at 12:03; Status DC Lidocaine HCl 20 ml STK-MED ONCE .ROUTE; Start 03/27/25 at 12:35; Stop 03/27/25 at 12:35; Status DC Lidocaine HCl 50 ml STK-MED ONCE .ROUTE; Start 03/27/25 at 12:35; Stop 03/27/25 at 12:35; Status DC Sodium Bicarbonate 50 ml @ As Directed STK-MED ONCE .ROUTE; Start 03/27/25 at 12:35; Stop 03/27/25 at 12:36; Status DC Iohexol 35,000 mg STK-MED ONCE IV; Start 03/27/25 at 12:35; Stop 03/27/25 at 12:36; Status DC Bupivacaine HCl 2.5 mg STK-MED ONCE IJ; Start 03/27/25 at 12:36; Stop 03/27/25 at 12:36; Status DC Heparin Sodium/ Sodium Chloride 1,000 ml @ As Directed STK-MED ONCE IV; Start 03/27/25 at 12:36; Stop 03/27/25 at 12:36; Status DC Vancomycin HCl 500 ml @ As Directed STK-MED ONCE IV; Start 03/27/25 at 12:58; Stop 03/27/25 at 12:58; Status DC Metoprolol Succinate 25 mg DAILY PO Last administered on 03/28/25at 09:29; Start 03/28/25 at 09:00; Stop 04/27/25 at 08:59 Aspirin 81 mg BID PO; Start 03/28/25 at 21:00; Stop 04/27/25 at 20:59 TATUM GILLETTE MD Mar 28, 2025 13:06
[2025-03-28 14:12] LABS: ALBUMIN (IFE & ELECTROPHOR) 2.3 g/dL (2.9-4.4); ALBUMIN/GLOBULIN RATIO (IFE) 0.9 (0.7-1.7); ALPHA-1 (IFE & PEP) 0.4 g/dL (0.0-0.4); ALPHA-2 (IFE & PEP) 0.8 g/dL (0.4-1.0); BETA (IFE & ELP) 0.8 g/dL (0.7-1.3); GAMMA GLOBULINS (IFE & ELP) 0.8 g/dL (0.4-1.8); GLOBULIN TOTAL (IFE) 2.8 g/dL (2.2-3.9); IGA (IFE) 177 mg/dL (64-422); IGG (IMMUNOFIXATION) 838 mg/dL (586-1602); IGM (IMMUNOFIXATION) 29 mg/dL (26-217); IMMUNOFIXATION RESULT Note: (.); M-SPIKE (IEP) 0.4 g/dL (Not Observed)
--- NOTE | 2025-03-28 17:02 | PN ---
SUBJECTIVE: The patient is scheduled to have biventricular pacemaker placement after AV geneva ablation. OBJECTIVE: GENERAL: Currently awake, alert, oriented to person, place, and time, not in distress. VITAL SIGNS: In the chart. HEENT: Normocephalic, atraumatic. LUNGS: Clear to auscultation. HEART: S1, S2 are distant. ABDOMEN: Prominent, soft, nontender. EXTREMITIES: No clubbing or cyanosis. LABORATORY DATA: Reviewed. ASSESSMENT AND PLAN: * Status post fall with dislocation of prosthetic right knee, status post revision surgery. Continue with Orthopedics recommendation. * Congestive heart failure, newly diagnosed, associated with atrial fibrillation with rapid ventricular response and biventricular pacemaker is being scheduled for today. * Type 2 diabetes, controlled. Continue with diet and sliding scale. * Hypertension, controlled. * Dyslipidemia. Controlled. * Chronic kidney disease, stable. * Continue current approach. * Anemia, chronic, stable. * Chronic obstructive pulmonary disease, controlled. * Follow up in a.m. with labs. DOS: 03/27/2025 TID: [id number] [facility] [id number] [facility]
--- NOTE | 2025-03-28 18:15 | PN ---
1. Mechanical fall without loss of consciousness with dislocation of right knee prosthesis. 2. History of paroxysmal atrial fibrillation with persistent atrial fibrillation on this admission. 3. History of CVA, likely cardioembolic following AFib ablation attempt in 2020 while off anticoagulation. 4. History of right hand and left lower extremity hematoma, on Xarelto therapy, currently on hold. 5. Acute on chronic kidney disease, stage IIIB with creatinine of 2.85 in February of this year. 6. Cardiomyopathy with EF of 35-40% with severely dilated left atrium and right atrium and increased left atrial pressure with mild aortic regurgitation, mild to moderate mitral regurgitation, moderate tricuspid regurgitation with moderate pulmonary hypertension and trace posterior pericardial effusion on echocardiography on this admission. 7. Octogenarian. 8. History of morbid obesity, status post remote gastric bypass surgery. 9. 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 10. COPD/bronchiectasis. 11. Chronic lumbosacral spine disease. Patient is alert and oriented, remembers me and converses intelligently and appropriately. She still had lightheadedness and dizziness when she attempted to ambulate today, has been affected by orthostatic hypotension limiting her activity. She is on midodrine but still symptomatic. I reviewed the chest x-ray but it is difficult to interpret because of poor inspiration. Radiology interpretation is pending. Patient had heart failure earlier in the stay associated with atrial fibrillation with rapid ventricular response, and I will check a BNP tomorrow to assess fluid status. Physical exam shows an oriented, alert, appropriate female with no JVD, normal carotid volume, no rales or rhonchi, nonlabored respiration, normal S1 and S2, left arm in sling after pacemaker implant yesterday. Impression and plan: With respect to arrhythmia, appropriate treatment has been rendered and the pacemaker implant is successful. With respect to heart failure, reassessment with BNP and follow up on the report from the radiologist would be helpful. Guideline directed heart failure therapy is not tolerated at this time because of orthostatic hypotension, but the patient is known to have depressed ejection fraction. If heart failure is resolved and others on the case agree, the patient could be discharged on anticoagulation as recommended by Dr. Diaz, with follow up in my office in two weeks. Vitals/Labs Vital Signs Date Time Temp Pulse Resp B/P (MAP) Pulse Ox O2 Delivery O2 Flow Rate FiO2 03/28/25 15:35 98.1 110 17 130/79 94 Room Air 03/28/25 08:15 0 21 Medications Current Medications Home Med 2 INHALATIONS BID BID IH Last administered on 03/28/25at 09:31; Start 03/16/25 at 09:00; Stop 04/15/25 at 08:59 Lidocaine 1 each DAILY TP Last administered on 03/28/25at 09:29; Start 03/16/25 at 09:00; Stop 04/15/25 at 08:59 Azithromycin 250 mg QMOFR PO Last administered on 03/25/25at 08:27; Start 03/18/25 at 09:00; Stop 03/28/25 at 08:59; Status DC Acetaminophen 650 mg Q6H PRN PO; Start 03/15/25 at 21:00; Stop 04/14/25 at 20:59 Acetaminophen/ Hydrocodone Bitart 1 tab Q6H PRN PO Last administered on 03/16/25at 21:00; Start 03/15/25 at 21:00; Stop 03/20/25 at 20:59; Status DC Aspirin 81 mg DAILY PO Last administered on 03/16/25at 09:35; Start 03/16/25 at 09:00; Stop 03/16/25 at 16:20; Status DC Hydromorphone HCl 0.5 mg Q4H PRN IVP Last administered on 03/20/25at 13:28; Start 03/15/25 at 21:00; Stop 03/20/25 at 20:59; Status DC Enoxaparin Sodium 30 mg DAILY SQ Last administered on 03/16/25at 09:39; Start 03/16/25 at 09:00; Stop 03/16/25 at 16:24; Status DC Metoprolol Tartrate 5 mg Q5M PRN IV Last administered on 03/18/25at 00:23; Start 03/15/25 at 21:00 Diltiazem HCl 30 mg Q8H5 PO Last administered on 03/16/25at 14:08; Start 03/15/25 at 21:00; Stop 03/16/25 at 16:20; Status DC Furosemide 40 mg Q48H PO Last administered on 03/22/25at 10:48; Start 03/18/25 at 09:00; Stop 03/25/25 at 12:28; Status DC Dronedarone 400 mg BID PO Last administered on 03/23/25at 09:48; Start 03/15/25 at 21:00; Stop 03/23/25 at 17:18; Status DC Ipratropium [place] 0.5 MG BID IH Last administered on 03/17/25at 06:30; Start 03/15/25 at 21:00; Stop 03/17/25 at 11:07; Status DC Lactulose 20 gm DAILY PO Last administered on 03/28/25at 09:30; Start 03/16/25 at 09:00; Stop 04/15/25 at 08:59 Pantoprazole Sodium 40 mg DAILY PO Last administered on 03/28/25at 09:29; Start 03/16/25 at 09:00; Stop 04/15/25 at 08:59 Sennosides 1 tab HS PO Last administered on 03/27/25at 22:28; Start 03/15/25 at 21:00; Stop 04/14/25 at 20:59 Buspirone HCl 10 mg HS PO Last administered on 03/27/25at 22:28; Start 03/15/25 at 21:00; Stop 04/14/25 at 20:59 Melatonin 10 mg HS PO Last administered on 03/27/25at 22:28; Start 03/15/25 at 21:00; Stop 04/14/25 at 20:59 Home Med HS PO Last administered on 03/15/25at 22:59; Start 03/16/25 at 21:00; Stop 03/16/25 at 03:20; Status DC Home Med BID NASAL; Start 03/16/25 at 09:00; Stop 04/15/25 at 08:59 Baclofen 20 mg HS PRN PO Last administered on 03/17/25at 20:48; Start 03/15/25 at 21:00; Stop 04/14/25 at 20:59 Vitamin B Complex 1,000 mcg DAILY PO; Start 03/16/25 at 09:00; Stop 03/17/25 at 02:33; Status DC Dextrose 50 ml AD PRN IV; Start 03/15/25 at 21:00; Stop 04/14/25 at 20:59 Glucagon 1 mg AD PRN IM; Start 03/15/25 at 21:00; Stop 04/14/25 at 20:59 Magnesium Sulfate 50 ml @ 0 mls/hr PROTOCOL PRN IV Last administered on 03/25/25at 23:21; Start 03/15/25 at 21:00; Stop 04/14/25 at 20:59 Potassium Chloride 100 ml @ 100 mls/hr AD PRN IV; Start 03/15/25 at 21:00; Stop 04/14/25 at 20:59 Potassium Chloride 20 meq AD PRN PO; Start 03/15/25 at 21:00; Stop 04/14/25 at 20:59 Potassium Chloride 20 meq AD PRN PO; Start 03/15/25 at 21:00; Stop 04/14/25 at 20:59 Potassium Chloride 100 ml @ 50 mls/hr AD PRN IV; Start 03/15/25 at 21:00; Stop 03/16/25 at 06:38; Status DC Metoprolol Tartrate 25 mg TID PO Last administered on 03/15/25at 22:20; Start 03/15/25 at 21:00; Stop 03/16/25 at 06:38; Status DC Multivitamins Therapeutic 1 tab DAILY PO Last administered on 03/28/25at 09:29; Start 03/16/25 at 09:00; Stop 04/15/25 at 08:59 Ondansetron HCl 4 mg Q4HPRN PRN IVP; Start 03/15/25 at 21:00; Stop 03/21/25 at 14:11; Status DC Home Med BIDMEALS PO Last administered on 03/26/25at 18:20; Start 03/16/25 at 21:00; Stop 04/15/25 at 20:59 Ferrous Fumarate 324 mg ONCE ONCE PO Last administered on 03/16/25at 12:03; Start 03/16/25 at 10:00; Stop 03/16/25 at 10:01; Status DC Diltiazem HCl 30 mg Q6H PO Last administered on 03/18/25at 01:57; Start 03/16/25 at 20:00; Stop 03/18/25 at 07:08; Status DC Heparin Sodium (Porcine) *calculation based on ACTUAL B... AD PRN IV Last administered on 03/21/25at 19:55; Start 03/16/25 at 17:30; Stop 03/23/25 at 21:16; Status DC Heparin Sodium/ Dextrose 250 ml @ 0 mls/hr Q6H IV Last administered on 03/23/25at 01:38; Start 03/16/25 at 17:30; Stop 03/23/25 at 21:16; Status DC Home Med DAILY PO Last administered on 03/28/25at 09:32; Start 03/17/25 at 09:00; Stop 04/16/25 at 08:59 Acetylcysteine 20 mg Q8H5 IH; Start 03/17/25 at 13:00; Stop 03/17/25 at 10:57; Status DC Ipratropium [place] 0.5 MG Q8H5 IH Last administered on 03/28/25at 07:11; Start 03/17/25 at 13:00; Stop 04/16/25 at 12:59 Sodium Chloride 4 ml STK-MED ONCE IH Last administered on 03/17/25at 13:39; Start 03/17/25 at 13:25; Stop 03/17/25 at 13:25; Status DC Acetylcysteine 200 mg Q8H5 IH Last administered on 03/25/25at 06:58; Start 03/17/25 at 14:00; Stop 03/25/25 at 11:01; Status DC Cefepime HCl 2 gm Q24H IVPB Last administered on 03/26/25at 16:25; Start 03/17/25 at 15:30; Stop 03/27/25 at 15:29; Status DC Sodium Chloride 4 ml STK-MED ONCE IH Last administered on 03/17/25at 18:26; Start 03/17/25 at 17:57; Stop 03/17/25 at 17:57; Status DC Lactulose 20 gm ONCE ONCE PO Last administered on 03/17/25at 20:56; Start 03/17/25 at 20:55; Stop 03/17/25 at 20:56; Status DC Sodium Chloride 4 ml STK-MED ONCE IH Last administered on 03/17/25at 23:29; Start 03/17/25 at 23:05; Stop 03/17/25 at 23:05; Status DC Metoprolol Tartrate 25 mg TID PO Last administered on 03/22/25at 14:49; Start 03/18/25 at 09:00; Stop 03/23/25 at 06:43; Status DC Regadenoson 0.4 mg STK-MED ONCE IVP Last administered on 03/18/25at 09:49; Start 03/18/25 at 09:32; Stop 03/18/25 at 09:32; Status DC Pharmacy Profile Note 1 each ONCE MISC; Start 03/19/25 at 10:30; Stop 03/19/25 at 10:23; Status DC Vancomycin HCl 1 each AD IV; Start 03/19/25 at 10:30; Stop 04/02/25 at 10:29 Vancomycin HCl 250 ml @ 125 mls/hr Q24H IV Last administered on 03/20/25at 13:21; Start 03/19/25 at 11:00; Stop 03/21/25 at 14:14; Status DC Cefazolin Sodium 2 gm ONCALL IVPB Last administered on 03/21/25at 09:06; Start 03/21/25 at 08:00; Stop 03/21/25 at 06:19; Status DC Hydromorphone HCl 0.5 mg Q4H PRN IVP Last administered on 03/20/25at 22:59; Start 03/20/25 at 23:00; Stop 03/21/25 at 14:17; Status DC Acetaminophen/ Hydrocodone Bitart 1 tab Q6H PRN PO; Start 03/20/25 at 23:00; Stop 03/21/25 at 12:57; Status DC Cefazolin Sodium 2 gm ONCALL IVPB; Start 03/21/25 at 06:30; Stop 03/21/25 at 14:11; Status DC Cefazolin Sodium 1 gm STK-MED ONCE .ROUTE; Start 03/21/25 at 07:00; Stop 03/21/25 at 07:00; Status DC Vancomycin HCl 0 ml @ As Directed STK-MED ONCE IV; Start 03/21/25 at 07:00; Stop 03/21/25 at 07:00; Status DC Lidocaine HCl 100 mg STK-MED ONCE .ROUTE; Start 03/21/25 at 07:14; Stop 03/21/25 at 07:14; Status DC Phenylephrine HCl 10 mg STK-MED ONCE IV; Start 03/21/25 at 07:14; Stop 03/21/25 at 07:14; Status DC Ondansetron HCl 4 mg STK-MED ONCE .ROUTE; Start 03/21/25 at 07:14; Stop 03/21/25 at 07:14; Status DC Ropivacaine 150 mg STK-MED ONCE .ROUTE; Start 03/21/25 at 07:14; Stop 03/21/25 at 07:14; Status DC Succinylcholine Chloride 200 mg STK-MED ONCE .ROUTE; Start 03/21/25 at 07:14; Stop 03/21/25 at 07:14; Status DC Ephedrine Sulfate 50 mg STK-MED ONCE .ROUTE; Start 03/21/25 at 07:14; Stop 03/21/25 at 07:15; Status DC Midazolam HCl 2 mg STK-MED ONCE .ROUTE; Start 03/21/25 at 07:15; Stop 03/21/25 at 07:15; Status DC Propofol 200 mg STK-MED ONCE IV; Start 03/21/25 at 07:15; Stop 03/21/25 at 07:15; Status DC Ketamine HCl 50 mg STK-MED ONCE .ROUTE; Start 03/21/25 at 07:15; Stop 03/21/25 at 07:15; Status DC Rocuronium [place] 50 mg STK-MED ONCE .ROUTE; Start 03/21/25 at 07:15; Stop 03/21/25 at 07:15; Status DC Fentanyl Citrate 100 mcg STK-MED ONCE .ROUTE; Start 03/21/25 at 07:15; Stop 03/21/25 at 07:15; Status DC Ondansetron HCl 4 mg AD PRN IVP; Start 03/21/25 at 08:00; Stop 03/21/25 at 10:51; Status DC Metoclopramide HCl 10 mg AD PRN IVP; Start 03/21/25 at 08:00; Stop 03/21/25 at 10:51; Status DC Promethazine HCl 25 mg AD PRN IM; Start 03/21/25 at 08:00; Stop 03/21/25 at 10:51; Status DC Ketorolac Tromethamine 30 mg AD PRN IV; Start 03/21/25 at 08:00; Stop 03/21/25 at 10:51; Status DC Morphine Sulfate 2 mg AD PRN IVP; Start 03/21/25 at 08:00; Stop 03/21/25 at 10:51; Status DC Fentanyl Citrate 25 mcg Q5MIN PRN IVP; Start 03/21/25 at 08:00; Stop 03/21/25 at 10:51; Status DC Naloxone HCl 0.1 mg AD PRN IVP; Start 03/21/25 at 08:00; Stop 03/21/25 at 10 :51; Status DC Acetaminophen 100 ml @ As Directed STK-MED ONCE .ROUTE; Start 03/21/25 at 07:49; Stop 03/21/25 at 07:50; Status DC Albumin Human 250 ml @ As Directed STK-MED ONCE IV; Start 03/21/25 at 08:18; Stop 03/21/25 at 08:18; Status DC Albumin Human 250 ml @ As Directed STK-MED ONCE IV; Start 03/21/25 at 08:34; Stop 03/21/25 at 08:34; Status DC Cefazolin Sodium 3 gm STK-MED ONCE IRRIG Last administered on 03/21/25at 09:51; Start 03/21/25 at 09:51; Stop 03/21/25 at 09:56; Status DC Rocuronium [place] 50 mg STK-MED ONCE .ROUTE; Start 03/21/25 at 10:20; Stop 03/21/25 at 10:21; Status DC Fentanyl Citrate 100 mcg STK-MED ONCE .ROUTE; Start 03/21/25 at 10:35; Stop 03/21/25 at 10:35; Status DC Fentanyl Citrate 100 mcg STK-MED ONCE .ROUTE; Start 03/21/25 at 12:23; Stop 03/21/25 at 12:24; Status DC Ondansetron HCl 4 mg AD PRN IVP; Start 03/21/25 at 13:00; Stop 03/21/25 at 14:1 1; Status DC Metoclopramide HCl 10 mg AD PRN IVP; Start 03/21/25 at 13:00; Stop 03/21/25 at 14:15; Status DC Promethazine HCl 25 mg AD PRN IM; Start 03/21/25 at 13:00; Stop 03/21/25 at 14:11; Status DC Ketorolac Tromethamine 30 mg AD PRN IV; Start 03/21/25 at 13:00; Stop 03/21/25 at 14:11; Status DC Morphine Sulfate 2 mg AD PRN IVP; Start 03/21/25 at 13:00; Stop 03/21/25 at 14:11; Status DC Fentanyl Citrate 25 mcg Q5MIN PRN IVP; Start 03/21/25 at 13:00; Stop 03/21/25 at 14:11; Status DC Naloxone HCl 0.1 mg AD PRN IVP; Start 03/21/25 at 13:00; Stop 03/21/25 at 14:11; Status DC Sodium Chloride 1,000 ml @ 100 mls/hr Q10H IV Last administered on 03/22/25at 10:49; Start 03/21/25 at 13:00; Stop 03/22/25 at 12:59; Status DC Polyethylene Glycol 17 gm DAILY PO Last administered on 03/28/25at 09:29; Start 03/22/25 at 09:00; Stop 04/21/25 at 08:59 Bisacodyl 10 mg DAILY PRN RC Last administered on 03/24/25at 20:40; Start 03/24/25 at 13:00; Stop 04/23/25 at 12:59 Ketorolac Tromethamine 15 mg Q6H PRN IV Last administered on 03/22/25at 10:51; Start 03/21/25 at 13:00; Stop 03/26/25 at 12:59; Status DC Famotidine 20 mg Q48H PO Last administered on 03/27/25at 22:27; Start 03/21/25 at 21:00; Stop 04/20/25 at 20:59 Ferrous Fumarate 324 mg DAILY PRN PO; Start 03/21/25 at 13:00; Stop 04/20/25 at 12:59 Temazepam 15 mg HS PRN PO; Start 03/21/25 at 13:00; Stop 04/20/25 at 12:59 Ondansetron HCl 4 mg Q6H PRN IVP; Start 03/21/25 at 13:00; Stop 04/20/25 at 12:59 Calcium Carbonate 500 mg Q12H PRN PO Last administered on 03/22/25at 14:53; Start 03/21/25 at 13:00; Stop 04/20/25 at 12:59 Diphenhydramine HCl 25 mg Q6H PRN IVP; Start 03/21/25 at 13:00; Stop 04/20/25 at 12:59 Acetaminophen/ Hydrocodone Bitart Q4H PRN PO Last administered on 03/25/25at 10:49; Start 03/21/25 at 13:00; Stop 03/26/25 at 12:59; Status DC Vancomycin HCl 250 ml @ 125 mls/hr Q24H IV Last administered on 03/25/25at 15:36; Start 03/21/25 at 14:30; Stop 03/26/25 at 14:04; Status DC Hydromorphone HCl 0.5 mg Q4H PRN IVP Last administered on 03/22/25at 14:50; Start 03/21/25 at 20:00; Stop 03/23/25 at 13:47; Status DC Metoprolol Tartrate 12.5 mg BID PO Last administered on 03/23/25at 09:48; Start 03/23/25 at 09:00; Stop 03/23/25 at 17:18; Status DC Sodium Chloride 1,000 ml @ 100 mls/hr Q10H IV Last administered on 03/24/25at 06:02; Start 03/23/25 at 07:00; Stop 03/24/25 at 06:39; Status DC Hydromorphone HCl 0.5 mg Q4H PRN IVP Last administered on 03/24/25at 22:26; Start 03/23/25 at 14:00; Stop 03/25/25 at 12:32; Status DC Metoprolol Tartrate 12.5 mg Q8H5 PO Last administered on 03/27/25at 05:49; Start 03/23/25 at 21:00; Stop 03/27/25 at 17:44; Status DC Pharmacy Profile [place] 1 each [place] [facility] [place] Start 03/23/25 at 16:30; Stop 03/25/25 at 12:28; Status DC Apixaban 2.5 mg BID PO Last administered on 03/24/25at 10:10; Start 03/23/25 at 21:00; Stop 03/24/25 at 12:24; Status DC Midodrine 10 mg DAILY18 PO Last administered on 03/26/25at 18:19; Start 03/23/25 at 18:00; Stop 04/22/25 at 17:59 Midodrine 10 mg DAILY06 PO Last administered on 03/28/25at 06:42; Start 03/24/25 at 06:00; Stop 04/23/25 at 05:59 Midodrine 10 mg DAILY10 PO Last administered on 03/28/25at 09:29; Start 03/24/25 at 10:00; Stop 04/23/25 at 09:59 Midodrine 10 mg DAILY14 PO Last administered on 03/28/25at 13:57; Start 03/24/25 at 14:00; Stop 04/23/25 at 13:59 Sodium Chloride 1,000 ml @ 60 mls/hr [id number] IV Last administered on 03/27/25at 00:46; Start 03/24/25 at 07:00; Stop 04/23/25 at 06:59 Vancomycin HCl 1 gm ONCALL ONCE IV; Start 03/27/25 at 06:00; Stop 03/26/25 at 14:02; Status DC Enoxaparin Sodium 90 mg Q24H SQ Last administered on 03/26/25at 09:03; Start 03/25/25 at 09:00; Stop 03/27/25 at 17:44; Status DC Vancomycin HCl 1 gm ONCALL ONCE IV; Start 03/27/25 at 06:00; Stop 03/27/25 at 06:01; Status DC Vancomycin HCl 750 mg Q24H IVPB Last administered on 03/28/25at 09:29; Start 03/28/25 at 10:00; Stop 04/07/25 at 09:59 Acetaminophen/ Hydrocodone Bitart 1 tab Q4H PRN PO Last administered on 03/28/25at 11:11; Start 03/26/25 at 15:00; Stop 03/31/25 at 14:59 Dexamethasone Sodium Phosphate 10 mg STK-MED ONCE .ROUTE; Start 03/27/25 at 12:00; Stop 03/27/25 at 12:00; Status DC Ondansetron HCl 4 mg STK-MED ONCE .ROUTE; Start 03/27/25 at 12:01; Stop 03/27/25 at 12:00; Status DC Etomidate 20 mg STK-MED ONCE .ROUTE; Start 03/27/25 at 12:01; Stop 03/27/25 at 12:00; Status DC Propofol 200 mg STK-MED ONCE IV; Start 03/27/25 at 12:01; Stop 03/27/25 at 12:01; Status DC Ketamine HCl 50 mg STK-MED ONCE .ROUTE; Start 03/27/25 at 12:01; Stop 03/27/25 at 12:01; Status DC Succinylcholine Chloride 200 mg STK-MED ONCE .ROUTE; Start 03/27/25 at 12:01; Stop 03/27/25 at 12:01; Status DC Midazolam HCl 2 mg STK-MED ONCE .ROUTE; Start 03/27/25 at 12:01; Stop 03/27/25 at 12:01; Status DC Ephedrine Sulfate 50 mg STK-MED ONCE .ROUTE; Start 03/27/25 at 12:01; Stop 03/27/25 at 12:02; Status DC Rocuronium [place] 50 mg STK-MED ONCE .ROUTE; Start 03/27/25 at 12:01; Stop 03/27/25 at 12:02; Status DC Phenylephrine HCl 10 mg STK-MED ONCE IV; Start 03/27/25 at 12:02; Stop 03/27/25 at 12:02; Status DC Fentanyl Citrate 100 mcg STK-MED ONCE .ROUTE; Start 03/27/25 at 12:02; Stop 03/27/25 at 12:02; Status DC Fentanyl Citrate 100 mcg STK-MED ONCE .ROUTE; Start 03/27/25 at 12:02; Stop 03/27/25 at 12:02; Status DC Lidocaine HCl 100 mg STK-MED ONCE .ROUTE; Start 03/27/25 at 12:02; Stop 03/27/25 at 12:03; Status DC Lidocaine HCl 20 ml STK-MED ONCE .ROUTE; Start 03/27/25 at 12:35; Stop 03/27/25 at 12:35; Status DC Lidocaine HCl 50 ml STK-MED ONCE .ROUTE; Start 03/27/25 at 12:35; Stop 03/27/25 at 12:35; Status DC Sodium Bicarbonate 50 ml @ As Directed STK-MED ONCE .ROUTE; Start 03/27/25 at 12:35; Stop 03/27/25 at 12:36; Status DC Iohexol 35,000 mg STK-MED ONCE IV; Start 03/27/25 at 12:35; Stop 03/27/25 at 12:36; Status DC Bupivacaine HCl 2.5 mg STK-MED ONCE IJ; Start 03/27/25 at 12:36; Stop 03/27/25 at 12:36; Status DC Heparin Sodium/ Sodium Chloride 1,000 ml @ As Directed STK-MED ONCE IV; Start 03/27/25 at 12:36; Stop 03/27/25 at 12:36; Status DC Vancomycin HCl 500 ml @ As Directed STK-MED ONCE IV; Start 03/27/25 at 12:58; Stop 03/27/25 at 12:58; Status DC Metoprolol Succinate 25 mg DAILY PO Last administered on 03/28/25at 09:29; Start 03/28/25 at 09:00; Stop 04/27/25 at 08:59 Aspirin 81 mg BID PO; Start 03/28/25 at 21:00; Stop 04/27/25 at 20:59 CHAR STEINER MD Mar 28, 2025 18:15
[2025-03-28] MEDS: ASPIRIN 81 MG EC TAB PO SCH (20:49)
[2025-03-29] VITALS (14 sets, daily range): BP systolic 108–127; BP diastolic 65–84; PULSE 84–110; RESP 16–20; TEMP 97.7–98.4; O2SAT 94–98
--- NOTE | 2025-03-29 08:06 | PN ---
Patient with past medical history significant for diabetes mellitus, hypertension, gastric bypass procedure, chronic renal insufficiency, A-fib with the patient was receiving Xarelto. This patient was admitted to [facility] 11/26/2024 because of possible hematoma to the left upper extremity with cyanosis to her finger. Xarelto was stopped. Patient was given Kcentra 2000 cc. with the cyanosis and the swelling improved significantly. Patient follow-up with me at this time. Patient started on aspirin 81 mg p.o. daily Patient also was started on folic acid and vitamin B12 to be under the time. [place]: Not Assessed Physical Exam: GENERAL: No acute respiratory distress. VITAL SIGNS: Reviewed and stable. HEENT: The sclerae are clear. The pupils are equal and reactive to light. The oropharyngeal cavity is within normal limits. NECK: Supple without lymphadenopathy. CHEST: Lung is clear bilaterally there is no wheezing or crackles. HEART: Sounds are regular and rhythmic. ABDOMEN: No guarding or rigidity. Bowel sounds positive. EXTREMITIES: No pitting edema. No petechial lesions or bruises. SKIN: Early ecchymosis Ecchymosis to the left upper extremity especially the finger but it is improving. No bruises, rash, or petechial lesions. NEUROLOGICAL: The patient is alert and oriented. No focal deficits. Muscle strength is 5/5. LYMPH NODES: There is no lymphadenopathy could be felt in the neck, supraclavicular, or axillary. Impression: 1. bleeding on Xarelto 11/26/2024 for which the patient received transfusion with Kcentra. Patient was discharged on aspirin. 2. Gastric bypass surgery 3. Gout 4. Hypertension 5. A-fib with the patient was receiving Xarelto which was stopped 6. Chronic renal insufficiency Plan: 1. This patient need to be continued off Xarelto. Maybe this patient could benefit from Pradaxa 75 mg p.o. twice daily we will talk to cardiology regarding that. 2. This patient to be on aspirin 81 mg 3. Hypercoagulable test was done on this patient which was negative except for homocystinemia. 4. There was hypersegmented neutrophils. This patient to be started on folic acid 1 mg p.o. daily and vitamin B12 1000 mcg sublingual. daily. 5. If the patient has become more cyanotic or become worse with swelling she need to go to the emergency department 6. No need for blood product transfusion Vitals/Labs Vital Signs Date Time Temp Pulse Resp B/P (MAP) Pulse Ox O2 Delivery O2 Flow Rate FiO2 03/29/25 06:23 95 20 03/29/25 06:18 N/Cannula Low lpm 2.0 28 03/29/25 04:22 97.9 113/78 98 Medications Current Medications Home Med 2 INHALATIONS BID BID IH Last administered on 03/28/25at 09:31; Start 03/16/25 at 09:00; Stop 04/15/25 at 08:59 Lidocaine 1 each DAILY TP Last administered on 03/28/25at 09:29; Start 03/16/25 at 09:00; Stop 04/15/25 at 08:59 Azithromycin 250 mg QMOFR PO Last administered on 03/25/25at 08:27; Start 03/18/25 at 09:00; Stop 03/28/25 at 08:59; Status DC Acetaminophen 650 mg Q6H PRN PO; Start 03/15/25 at 21:00; Stop 04/14/25 at 20:59 Acetaminophen/ Hydrocodone Bitart 1 tab Q6H PRN PO Last administered on 03/16/25at 21:00; Start 03/15/25 at 21:00; Stop 03/20/25 at 20:59; Status DC Aspirin 81 mg DAILY PO Last administered on 03/16/25at 09:35; Start 03/16/25 at 09:00; Stop 03/16/25 at 16:20; Status DC Hydromorphone HCl 0.5 mg Q4H PRN IVP Last administered on 03/20/25at 13:28; Start 03/15/25 at 21:00; Stop 03/20/25 at 20:59; Status DC Enoxaparin Sodium 30 mg DAILY SQ Last administered on 03/16/25at 09:39; Start 03/16/25 at 09:00; Stop 03/16/25 at 16:24; Status DC Metoprolol Tartrate 5 mg Q5M PRN IV Last administered on 03/18/25at 00:23; Start 03/15/25 at 21:00 Diltiazem HCl 30 mg Q8H5 PO Last administered on 03/16/25at 14:08; Start 03/15/25 at 21:00; Stop 03/16/25 at 16:20; Status DC Furosemide 40 mg Q48H PO Last administered on 03/22/25at 10:48; Start 03/18/25 at 09:00; Stop 03/25/25 at 12:28; Status DC Dronedarone 400 mg BID PO Last administered on 03/23/25at 09:48; Start 03/15/25 at 21:00; Stop 03/23/25 at 17:18; Status DC Ipratropium [place] 0.5 MG BID IH Last administered on 03/17/25at 06:30; Start 03/15/25 at 21:00; Stop 03/17/25 at 11:07; Status DC Lactulose 20 gm DAILY PO Last administered on 03/28/25at 09:30; Start 03/16/25 at 09:00; Stop 04/15/25 at 08:59 Pantoprazole Sodium 40 mg DAILY PO Last administered on 03/28/25at 09:29; Start 03/16/25 at 09:00; Stop 04/15/25 at 08:59 Sennosides 1 tab HS PO Last administered on 03/28/25at 20:49; Start 03/15/25 at 21:00; Stop 04/14/25 at 20:59 Buspirone HCl 10 mg HS PO Last administered on 03/28/25at 20:48; Start 03/15/25 at 21:00; Stop 04/14/25 at 20:59 Melatonin 10 mg HS PO Last administered on 03/28/25at 20:49; Start 03/15/25 at 21:00; Stop 04/14/25 at 20:59 Home Med HS PO Last administered on 03/15/25at 22:59; Start 03/16/25 at 21:00; Stop 03/16/25 at 03:20; Status DC Home Med BID NASAL; Start 03/16/25 at 09:00; Stop 04/15/25 at 08:59 Baclofen 20 mg HS PRN PO Last administered on 03/17/25at 20:48; Start 03/15/25 at 21:00; Stop 04/14/25 at 20:59 Vitamin B Complex 1,000 mcg DAILY PO; Start 03/16/25 at 09:00; Stop 03/17/25 at 02:33; Status DC Dextrose 50 ml AD PRN IV; Start 03/15/25 at 21:00; Stop 04/14/25 at 20:59 Glucagon 1 mg AD PRN IM; Start 03/15/25 at 21:00; Stop 04/14/25 at 20:59 Magnesium Sulfate 50 ml @ 0 mls/hr PROTOCOL PRN IV Last administered on 03/25/25at 23:21; Start 03/15/25 at 21:00; Stop 04/14/25 at 20:59 Potassium Chloride 100 ml @ 100 mls/hr AD PRN IV; Start 03/15/25 at 21:00; Stop 04/14/25 at 20:59 Potassium Chloride 20 meq AD PRN PO; Start 03/15/25 at 21:00; Stop 04/14/25 at 20:59 Potassium Chloride 20 meq AD PRN PO; Start 03/15/25 at 21:00; Stop 04/14/25 at 20:59 Potassium Chloride 100 ml @ 50 mls/hr AD PRN IV; Start 03/15/25 at 21:00; Stop 03/16/25 at 06:38; Status DC Metoprolol Tartrate 25 mg TID PO Last administered on 03/15/25at 22:20; Start 03/15/25 at 21:00; Stop 03/16/25 at 06:38; Status DC Multivitamins Therapeutic 1 tab DAILY PO Last administered on 03/28/25at 09:29; Start 03/16/25 at 09:00; Stop 04/15/25 at 08:59 Ondansetron HCl 4 mg Q4HPRN PRN IVP; Start 03/15/25 at 21:00; Stop 03/21/25 at 14:11; Status DC Home Med BIDMEALS PO Last administered on 03/26/25at 18:20; Start 03/16/25 at 21:00; Stop 04/15/25 at 20:59 Ferrous Fumarate 324 mg ONCE ONCE PO Last administered on 03/16/25at 12:03; Start 03/16/25 at 10:00; Stop 03/16/25 at 10:01; Status DC Diltiazem HCl 30 mg Q6H PO Last administered on 03/18/25at 01:57; Start 03/16/25 at 20:00; Stop 03/18/25 at 07:08; Status DC Heparin Sodium (Porcine) *calculation based on ACTUAL B... AD PRN IV Last administered on 03/21/25at 19:55; Start 03/16/25 at 17:30; Stop 03/23/25 at 21:16; Status DC Heparin Sodium/ Dextrose 250 ml @ 0 mls/hr Q6H IV Last administered on 03/23/25at 01:38; Start 03/16/25 at 17:30; Stop 03/23/25 at 21:16; Status DC Home Med DAILY PO Last administered on 03/28/25at 09:32; Start 03/17/25 at 09:00; Stop 04/16/25 at 08:59 Acetylcysteine 20 mg Q8H5 IH; Start 03/17/25 at 13:00; Stop 03/17/25 at 10:57; Status DC Ipratropium [place] 0.5 MG Q8H5 IH Last administered on 03/29/25at 06:16; Start 03/17/25 at 13:00; Stop 04/16/25 at 12:59 Sodium Chloride 4 ml STK-MED ONCE IH Last administered on 03/17/25at 13:39; Start 03/17/25 at 13:25; Stop 03/17/25 at 13:25; Status DC Acetylcysteine 200 mg Q8H5 IH Last administered on 03/25/25at 06:58; Start 03/17/25 at 14:00; Stop 03/25/25 at 11:01; Status DC Cefepime HCl 2 gm Q24H IVPB Last administered on 03/26/25at 16:25; Start 03/17/25 at 15:30; Stop 03/27/25 at 15:29; Status DC Sodium Chloride 4 ml STK-MED ONCE IH Last administered on 03/17/25at 18:26; Start 03/17/25 at 17:57; Stop 03/17/25 at 17:57; Status DC Lactulose 20 gm ONCE ONCE PO Last administered on 03/17/25at 20:56; Start 03/17/25 at 20:55; Stop 03/17/25 at 20:56; Status DC Sodium Chloride 4 ml STK-MED ONCE IH Last administered on 03/17/25at 23:29; Start 03/17/25 at 23:05; Stop 03/17/25 at 23:05; Status DC Metoprolol Tartrate 25 mg TID PO Last administered on 03/22/25at 14:49; Start 03/18/25 at 09:00; Stop 03/23/25 at 06:43; Status DC Regadenoson 0.4 mg STK-MED ONCE IVP Last administered on 03/18/25at 09:49; Start 03/18/25 at 09:32; Stop 03/18/25 at 09:32; Status DC Pharmacy Profile Note 1 each ONCE MISC; Start 03/19/25 at 10:30; Stop 03/19/25 at 10:23; Status DC Vancomycin HCl 1 each AD IV; Start 03/19/25 at 10:30; Stop 04/02/25 at 10:29 Vancomycin HCl 250 ml @ 125 mls/hr Q24H IV Last administered on 03/20/25at 13:21; Start 03/19/25 at 11:00; Stop 03/21/25 at 14:14; Status DC Cefazolin Sodium 2 gm ONCALL IVPB Last administered on 03/21/25at 09:06; Start 03/21/25 at 08:00; Stop 03/21/25 at 06:19; Status DC Hydromorphone HCl 0.5 mg Q4H PRN IVP Last administered on 03/20/25at 22:59; Start 03/20/25 at 23:00; Stop 03/21/25 at 14:17; Status DC Acetaminophen/ Hydrocodone Bitart 1 tab Q6H PRN PO; Start 03/20/25 at 23:00; Stop 03/21/25 at 12:57; Status DC Cefazolin Sodium 2 gm ONCALL IVPB; Start 03/21/25 at 06:30; Stop 03/21/25 at 14:11; Status DC Cefazolin Sodium 1 gm STK-MED ONCE .ROUTE; Start 03/21/25 at 07:00; Stop 03/21/25 at 07:00; Status DC Vancomycin HCl 0 ml @ As Directed STK-MED ONCE IV; Start 03/21/25 at 07:00; Stop 03/21/25 at 07:00; Status DC Lidocaine HCl 100 mg STK-MED ONCE .ROUTE; Start 03/21/25 at 07:14; Stop 03/21/25 at 07:14; Status DC Phenylephrine HCl 10 mg STK-MED ONCE IV; Start 03/21/25 at 07:14; Stop 03/21/25 at 07:14; Status DC Ondansetron HCl 4 mg STK-MED ONCE .ROUTE; Start 03/21/25 at 07:14; Stop 03/21/25 at 07:14; Status DC Ropivacaine 150 mg STK-MED ONCE .ROUTE; Start 03/21/25 at 07:14; Stop 03/21/25 at 07:14; Status DC Succinylcholine Chloride 200 mg STK-MED ONCE .ROUTE; Start 03/21/25 at 07:14; Stop 03/21/25 at 07:14; Status DC Ephedrine Sulfate 50 mg STK-MED ONCE .ROUTE; Start 03/21/25 at 07:14; Stop 03/21/25 at 07:15; Status DC Midazolam HCl 2 mg STK-MED ONCE .ROUTE; Start 03/21/25 at 07:15; Stop 03/21/25 at 07:15; Status DC Propofol 200 mg STK-MED ONCE IV; Start 03/21/25 at 07:15; Stop 03/21/25 at 07:15; Status DC Ketamine HCl 50 mg STK-MED ONCE .ROUTE; Start 03/21/25 at 07:15; Stop 03/21/25 at 07:15; Status DC Rocuronium [place] 50 mg STK-MED ONCE .ROUTE; Start 03/21/25 at 07:15; Stop 03/21/25 at 07:15; Status DC Fentanyl Citrate 100 mcg STK-MED ONCE .ROUTE; Start 03/21/25 at 07:15; Stop 03/21/25 at 07:15; Status DC Ondansetron HCl 4 mg AD PRN IVP; Start 03/21/25 at 08:00; Stop 03/21/25 at 10:51; Status DC Metoclopramide HCl 10 mg AD PRN IVP; Start 03/21/25 at 08:00; Stop 03/21/25 at 10:51; Status DC Promethazine HCl 25 mg AD PRN IM; Start 03/21/25 at 08:00; Stop 03/21/25 at 10:51; Status DC Ketorolac Tromethamine 30 mg AD PRN IV; Start 03/21/25 at 08:00; Stop 03/21/25 at 10:51; Status DC Morphine Sulfate 2 mg AD PRN IVP; Start 03/21/25 at 08:00; Stop 03/21/25 at 10:51; Status DC Fentanyl Citrate 25 mcg Q5MIN PRN IVP; Start 03/21/25 at 08:00; Stop 03/21/25 at 10:51; Status DC Naloxone HCl 0.1 mg AD PRN IVP; Start 03/21/25 at 08:00; Stop 03/21/25 at 10:51; Status DC Acetaminophen 100 ml @ As Directed STK-MED ONCE .ROUTE; Start 03/21/25 at 07 :49; Stop 03/21/25 at 07:50; Status DC Albumin Human 250 ml @ As Directed STK-MED ONCE IV; Start 03/21/25 at 08:18; Stop 03/21/25 at 08:18; Status DC Albumin Human 250 ml @ As Directed STK-MED ONCE IV; Start 03/21/25 at 08:34; Stop 03/21/25 at 08:34; Status DC Cefazolin Sodium 3 gm STK-MED ONCE IRRIG Last administered on 03/21/25at 09:51; Start 03/21/25 at 09:51; Stop 03/21/25 at 09:56; Status DC Rocuronium [place] 50 mg STK-MED ONCE .ROUTE; Start 03/21/25 at 10:20; Stop 03/21/25 at 10:21; Status DC Fentanyl Citrate 100 mcg STK-MED ONCE .ROUTE; Start 03/21/25 at 10:35; Stop 03/21/25 at 10:35; Status DC Fentanyl Citrate 100 mcg STK-MED ONCE .ROUTE; Start 03/21/25 at 12:23; Stop 03/21/25 at 12:24; Status DC Ondansetron HCl 4 mg AD PRN IVP; Start 03/21/25 at 13:00; Stop 03/21/25 at 14:11; Status DC Metoclopramide HCl 10 mg AD PRN IVP; Start 03/21/25 at 13:00; Stop 03/21/25 at 14:15; Status DC Promethazine HCl 25 mg AD PRN IM; Start 03/21/25 at 13:00; Stop 03/21/25 at 14:11; Status DC Ketorolac Tromethamine 30 mg AD PRN IV; Start 03/21/25 at 13:00; Stop 03/21/25 at 14:11; Status DC Morphine Sulfate 2 mg AD PRN IVP; Start 03/21/25 at 13:00; Stop 03/21/25 at 14:11; Status DC Fentanyl Citrate 25 mcg Q5MIN PRN IVP; Start 03/21/25 at 13:00; Stop 03/21/25 at 14:11; Status DC Naloxone HCl 0.1 mg AD PRN IVP; Start 03/21/25 at 13:00; Stop 03/21/25 at 14:11; Status DC Sodium Chloride 1,000 ml @ 100 mls/hr Q10H IV Last administered on 03/22/25at 10:49; Start 03/21/25 at 13:00; Stop 03/22/25 at 12:59; Status DC Polyethylene Glycol 17 gm DAILY PO Last administered on 03/28/25at 09:29; Start 03/22/25 at 09:00; Stop 04/21/25 at 08:59 Bisacodyl 10 mg DAILY PRN RC Last administered on 03/24/25at 20:40; Start 03/24/25 at 13:00; Stop 04/23/25 at 12:59 Ketorolac Tromethamine 15 mg Q6H PRN IV Last administered on 03/22/25at 10:51; Start 03/21/25 at 13:00; Stop 03/26/25 at 12:59; Status DC Famotidine 20 mg Q48H PO Last administered on 03/27/25at 22:27; Start 03/21/25 at 21:00; Stop 04/20/25 at 20:59 Ferrous Fumarate 324 mg DAILY PRN PO; Start 03/21/25 at 13:00; Stop 04/20/25 at 12:59 Temazepam 15 mg HS PRN PO; Start 03/21/25 at 13:00; Stop 04/20/25 at 12:59 Ondansetron HCl 4 mg Q6H PRN IVP; Start 03/21/25 at 13:00; Stop 04/20/25 at 12:59 Calcium Carbonate 500 mg Q12H PRN PO Last administered on 03/22/25at 14:53; Start 03/21/25 at 13:00; Stop 04/20/25 at 12:59 Diphenhydramine HCl 25 mg Q6H PRN IVP; Start 03/21/25 at 13:00; Stop 04/20/25 at 12:59 Acetaminophen/ Hydrocodone Bitart Q4H PRN PO Last administered on 03/25/25at 10:49; Start 03/21/25 at 13:00; Stop 03/26/25 at 12:59; Status DC Vancomycin HCl 250 ml @ 125 mls/hr Q24H IV Last administered on 03/25/25at 15:36; Start 03/21/25 at 14:30; Stop 03/26/25 at 14:04; Status DC Hydromorphone HCl 0.5 mg Q4H PRN IVP Last administered on 03/22/25at 14:50; Start 03/21/25 at 20:00; Stop 03/23/25 at 13:47; Status DC Metoprolol Tartrate 12.5 mg BID PO Last administered on 03/23/25at 09:48; Start 03/23/25 at 09:00; Stop 03/23/25 at 17:18; Status DC Sodium Chloride 1,000 ml @ 100 mls/hr Q10H IV Last administered on 03/24/25at 06:02; Start 03/23/25 at 07:00; Stop 03/24/25 at 06:39; Status DC Hydromorphone HCl 0.5 mg Q4H PRN IVP Last administered on 03/24/25at 22:26; Start 03/23/25 at 14:00; Stop 03/25/25 at 12:32; Status DC Metoprolol Tartrate 12.5 mg Q8H5 PO Last administered on 03/27/25at 05:49; Start 03/23/25 at 21:00; Stop 03/27/25 at 17:44; Status DC Pharmacy Profile Note 1 each AD [facility] [place]; Start 03/23/25 at 16:30; Stop 03/25/25 at 12:28; Status DC Apixaban 2.5 mg BID PO Last administered on 03/24/25at 10:10; Start 03/23/25 at 21:00; Stop 03/24/25 at 12:24; Status DC Midodrine 10 mg DAILY18 PO Last administered on 03/26/25at 18:19; Start 03/23/25 at 18:00; Stop 04/22/25 at 17:59 Midodrine 10 mg DAILY06 PO Last administered on 03/28/25at 06:42; Start 03/24/25 at 06:00; Stop 04/23/25 at 05:59 Midodrine 10 mg DAILY10 PO Last administered on 03/28/25at 09:29; Start 03/24/25 at 10:00; Stop 04/23/25 at 09:59 Midodrine 10 mg DAILY14 PO Last administered on 03/28/25at 13:57; Start 03/24/25 at 14:00; Stop 04/23/25 at 13:59 Sodium Chloride 1,000 ml @ 60 mls/hr [id number] IV Last administered on 03/27/25at 00:46; Start 03/24/25 at 07:00; Stop 04/23/25 at 06:59 Vancomycin HCl 1 gm ONCALL ONCE IV; Start 03/27/25 at 06:00; Stop 03/26/25 at 14:02; Status DC Enoxaparin Sodium 90 mg Q24H SQ Last administered on 03/26/25at 09:03; Start 03/25/25 at 09:00; Stop 03/27/25 at 17:44; Status DC Vancomycin HCl 1 gm ONCALL ONCE IV; Start 03/27/25 at 06:00; Stop 03/27/25 at 06:01; Status DC Vancomycin HCl 750 mg Q24H IVPB Last administered on 03/28/25at 09:29; Start 03/28/25 at 10:00; Stop 04/07/25 at 09:59 Acetaminophen/ Hydrocodone Bitart 1 tab Q4H PRN PO Last administered on 03/28/25at 20:50; Start 03/26/25 at 15:00; Stop 03/31/25 at 14:59 Dexamethasone Sodium Phosphate 10 mg STK-MED ONCE .ROUTE; Start 03/27/25 at 12:00; Stop 03/27/25 at 12:00; Status DC Ondansetron HCl 4 mg STK-MED ONCE .ROUTE; Start 03/27/25 at 12:01; Stop 03/27/25 at 12:00; Status DC Etomidate 20 mg STK-MED ONCE .ROUTE; Start 03/27/25 at 12:01; Stop 03/27/25 at 12:00; Status DC Propofol 200 mg STK-MED ONCE IV; Start 03/27/25 at 12:01; Stop 03/27/25 at 12:01; Status DC Ketamine HCl 50 mg STK-MED ONCE .ROUTE; Start 03/27/25 at 12:01; Stop 03/27/25 at 12:01; Status DC Succinylcholine Chloride 200 mg STK-MED ONCE .ROUTE; Start 03/27/25 at 12:01; Stop 03/27/25 at 12:01; Status DC Midazolam HCl 2 mg STK-MED ONCE .ROUTE; Start 03/27/25 at 12:01; Stop 03/27/25 at 12:01; Status DC Ephedrine Sulfate 50 mg STK-MED ONCE .ROUTE; Start 03/27/25 at 12:01; Stop 03/27/25 at 12:02; Status DC Rocuronium [place] 50 mg STK-MED ONCE .ROUTE; Start 03/27/25 at 12:01; Stop 03/27/25 at 12:02; Status DC Phenylephrine HCl 10 mg STK-MED ONCE IV; Start 03/27/25 at 12:02; Stop 03/27/25 at 12:02; Status DC Fentanyl Citrate 100 mcg STK-MED ONCE .ROUTE; Start 03/27/25 at 12:02; Stop 03/27/25 at 12:02; Status DC Fentanyl Citrate 100 mcg STK-MED ONCE .ROUTE; Start 03/27/25 at 12:02; Stop 03/27/25 at 12:02; Status DC Lidocaine HCl 100 mg STK-MED ONCE .ROUTE; Start 03/27/25 at 12:02; Stop 03/27/25 at 12:03; Status DC Lidocaine HCl 20 ml STK-MED ONCE .ROUTE; Start 03/27/25 at 12:35; Stop 03/27/25 at 12:35; Status DC Lidocaine HCl 50 ml STK-MED ONCE .ROUTE; Start 03/27/25 at 12:35; Stop 03/27/25 at 12:35; Status DC Sodium Bicarbonate 50 ml @ As Directed STK-MED ONCE .ROUTE; Start 03/27/25 at 12:35; Stop 03/27/25 at 12:36; Status DC Iohexol 35,000 mg STK-MED ONCE IV; Start 03/27/25 at 12:35; Stop 03/27/25 at 12:36; Status DC Bupivacaine HCl 2.5 mg STK-MED ONCE IJ; Start 03/27/25 at 12:36; Stop 03/27/25 at 12:36; Status DC Heparin Sodium/ Sodium Chloride 1,000 ml @ As Directed STK-MED ONCE IV; Start 03/27/25 at 12:36; Stop 03/27/25 at 12:36; Status DC Vancomycin HCl 500 ml @ As Directed STK-MED ONCE IV; Start 03/27/25 at 12:58; Stop 03/27/25 at 12:58; Status DC Metoprolol Succinate 25 mg DAILY PO Last administered on 03/28/25at 09:29; Start 03/28/25 at 09:00; Stop 04/27/25 at 08:59 Aspirin 81 mg BID PO Last administered on 03/28/25at 20:49; Start 03/28/25 at 21:00; Stop 04/27/25 at 20:59 TATUM GILLETTE MD Mar 29, 2025 08:06
[2025-03-29 08:21] LABS: NUCLEATED RED BLOOD CELLS 0.0 % (0.0-0.19); PLATELET COUNT (AUTO) 281 K/uL (130-400); RED BLOOD CELL COUNT(AUTO) 2.89 MIL/uL (4.00-5.50); RED CELL DISTRIBUTION WIDTH 15.5 % (11.0-15.5); WHITE BLOOD COUNT (AUTO) 7.7 K/uL (4.8-10.8)
[2025-03-29 08:25] LABS: IMMATURE GRANULOCYTE ABSOLUTE 0.02 K/uL (0-1)
[2025-03-29 08:40] LABS: CREATININE 1.5 mg/dL (0.5-1.0); GLOMERULAR FILTR. RATE CALC 34.0 mL/min (>90); GLUCOSE,RANDOM 91.0 mg/dL (70-105); SODIUM SERUM 141.0 mmol/L (136-145); UREA NITROGEN, BLOOD 25.0 mg/dL (7-18); VANCOMYCIN TROUGH 21.8 UG/ML (10.0-20.0)
--- NOTE | 2025-03-29 08:53 | PN ---
This is an 84-year-old female with atrial arrhythmias including atrial fibrillation and right atrial tachycardia status post attempted catheter ablation in July 2020 with cardioembolic stroke on the day following the procedure, orthostatic hypotension, chronic kidney disease, recent spontaneous hematoma to her hand and lower extremity while on Xarelto. She transferred from [facility] to undergo surgery for dislocation of right knee arthroplasty which was performed on 03/21/2025. She persistent atrial fibrillation which has been difficult to rate control in the context of hypotension. Echocardiogram on this admission shows an ejection fraction of 35- 40%. She underwent placement of biventricular pacemaker with AV node ablation 03/27/2025. She is currently in atrial fibrillation with biventricular pacing in the 90s. White blood count 7.7, hemoglobin 9.7, hematocrit 30.9, platelets 281, creatinine 1.5, potassium 4.4, magnesium 1.80. Assessment: 1. Persistent atrial fibrillation with inadequate rate control. 2. Dilated cardiomyopathy, likely tachycardia mediated. 3. Dislocation of right knee arthroplasty status post surgical repair 03/21/2025. 4. Orthostatic hypotension. 5. Persistent cough. 6. Hypomagnesemia. 7. Chronic kidney disease. 8. Homocystinemia. Plan: Discussed with Dr. Thomas. 1. She is status post biventricular pacemaker insertion with AV node ablation 03/27/2025. Her base rate is currently set to 90 beats per minute. This will be gradually lowered to a base rate of 60-70 beats per minute as an outpatient. 2. Per Dr. Diaz, recommend anticoagulation with Pradaxa 75 mg twice daily. We will initiate Pradaxa tomorrow morning. 3. Continue midodrine 10 mg every 4 hours as directed. 4. Electrophysiology will sign off at this time. We will schedule follow-up visit with Dr. Joseph in 7-10 days. Vitals/Labs Vital Signs Date Time Temp Pulse Resp B/P (MAP) Pulse Ox O2 Delivery O2 Flow Rate FiO2 03/29/25 08:14 98.1 97 18 123/79 95 Room Air 03/29/25 06:18 2.0 28 Laboratory Tests 03/29/25 08:04 BRICE ORO Mar 29, 2025 08:53
--- NOTE | 2025-03-29 08:55 | PN ---
1. Mechanical fall without loss of consciousness with dislocation of right knee prosthesis. 2. History of paroxysmal atrial fibrillation with persistent atrial fibrillation on this admission. 3. History of CVA, likely cardioembolic following AFib ablation attempt in 2020 while off anticoagulation. 4. History of right hand and left lower extremity hematoma, on Xarelto therapy, currently on hold. 5. Acute on chronic kidney disease, stage IIIB with creatinine of 2.85 in February of this year. 6. Cardiomyopathy with EF of 35-40% with severely dilated left atrium and right atrium and increased left atrial pressure with mild aortic regurgitation, mild to moderate mitral regurgitation, moderate tricuspid regurgitation with moderate pulmonary hypertension and trace posterior pericardial effusion on echocardiography on this admission. 7. Octogenarian. 8. History of morbid obesity, status post remote gastric bypass surgery. 9. 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 10. COPD/bronchiectasis. 11. Chronic lumbosacral spine disease. Patient is not complaining of shortness of breath and I do not appreciate rales or dullness, respiratory pattern is nonlabored. Patient complains of pain at her pacemaker insertion site but there is no hematoma. She is also complaining of pain in her right knee. Physical exam is negative for JVD, negative for rales, negative for respiratory distress. Rhythm is currently regular and S1 and S2 are normal. No murmur, no edema. Impression and plan: BNP is over 500 but chest x-ray is of poor quality and to my eye appears not to show significant pulmonary congestion. I think a little more diuresis may be appropriate but from a cardiac perspective the patient seems to have stabilized. As noted previously, orthostasis and hypotension limit guideline directed heart failure therapy. Vitals/Labs Vital Signs Date Time Temp Pulse Resp B/P (MAP) Pulse Ox O2 Delivery O2 Flow Rate FiO2 03/29/25 08:14 98.1 97 18 123/79 95 Room Air 03/29/25 06:18 2.0 28 Laboratory Tests 03/29/25 08:04 Medications Current Medications Home Med 2 INHALATIONS BID BID IH Last administered on 03/28/25at 09:31; Start 03/16/25 at 09:00; Stop 04/15/25 at 08:59 Lidocaine 1 each DAILY TP Last administered on 03/28/25at 09:29; Start 03/16/25 at 09:00; Stop 04/15/25 at 08:59 Azithromycin 250 mg QMOFR PO Last administered on 03/25/25at 08:27; Start 03/18/25 at 09:00; Stop 03/28/25 at 08:59; Status DC Acetaminophen 650 mg Q6H PRN PO; Start 03/15/25 at 21:00; Stop 04/14/25 at 20:59 Acetaminophen/ Hydrocodone Bitart 1 tab Q6H PRN PO Last administered on 03/16/25at 21:00; Start 03/15/25 at 21:00; Stop 03/20/25 at 20:59; Status DC Aspirin 81 mg DAILY PO Last administered on 03/16/25at 09:35; Start 03/16/25 at 09:00; Stop 03/16/25 at 16:20; Status DC Hydromorphone HCl 0.5 mg Q4H PRN IVP Last administered on 03/20/25at 13:28; Start 03/15/25 at 21:00; Stop 03/20/25 at 20:59; Status DC Enoxaparin Sodium 30 mg DAILY SQ Last administered on 03/16/25at 09:39; Start 03/16/25 at 09:00; Stop 03/16/25 at 16:24; Status DC Metoprolol Tartrate 5 mg Q5M PRN IV Last administered on 03/18/25at 00:23; Start 03/15/25 at 21:00 Diltiazem HCl 30 mg Q8H5 PO Last administered on 03/16/25at 14:08; Start 03/15/25 at 21:00; Stop 03/16/25 at 16:20; Status DC Furosemide 40 mg Q48H PO Last administered on 03/22/25at 10:48; Start 03/18/25 at 09:00; Stop 03/25/25 at 12:28; Status DC Dronedarone 400 mg BID PO Last administered on 03/23/25at 09:48; Start 03/15/25 at 21:00; Stop 03/23/25 at 17:18; Status DC Ipratropium [place] 0.5 MG BID IH Last administered on 03/17/25at 06:30; Start 03/15/25 at 21:00; Stop 03/17/25 at 11:07; Status DC Lactulose 20 gm DAILY PO Last administered on 03/28/25at 09:30; Start 03/16/25 at 09:00; Stop 04/15/25 at 08:59 Pantoprazole Sodium 40 mg DAILY PO Last administered on 03/28/25at 09:29; Start 03/16/25 at 09:00; Stop 04/15/25 at 08:59 Sennosides 1 tab HS PO Last administered on 03/28/25at 20:49; Start 03/15/25 at 21:00; Stop 04/14/25 at 20:59 Buspirone HCl 10 mg HS PO Last administered on 03/28/25at 20:48; Start 03/15/25 at 21:00; Stop 04/14/25 at 20:59 Melatonin 10 mg HS PO Last administered on 03/28/25at 20:49; Start 03/15/25 at 21:00; Stop 04/14/25 at 20:59 Home Med HS PO Last administered on 03/15/25at 22:59; Start 03/16/25 at 21:00; Stop 03/16/25 at 03:20; Status DC Home Med BID NASAL; Start 03/16/25 at 09:00; Stop 04/15/25 at 08:59 Baclofen 20 mg HS PRN PO Last administered on 03/17/25at 20:48; Start 03/15/25 at 21:00; Stop 04/14/25 at 20:59 Vitamin B Complex 1,000 mcg DAILY PO; Start 03/16/25 at 09:00; Stop 03/17/25 at 02:33; Status DC Dextrose 50 ml AD PRN IV; Start 03/15/25 at 21:00; Stop 04/14/25 at 20:59 Glucagon 1 mg AD PRN IM; Start 03/15/25 at 21:00; Stop 04/14/25 at 20:59 Magnesium Sulfate 50 ml @ 0 mls/hr PROTOCOL PRN IV Last administered on 03/25/25at 23:21; Start 03/15/25 at 21:00; Stop 04/14/25 at 20:59 Potassium Chloride 100 ml @ 100 mls/hr AD PRN IV; Start 03/15/25 at 21:00; Stop 04/14/25 at 20:59 Potassium Chloride 20 meq AD PRN PO; Start 03/15/25 at 21:00; Stop 04/14/25 at 20:59 Potassium Chloride 20 meq AD PRN PO; Start 03/15/25 at 21:00; Stop 04/14/25 at 20:59 Potassium Chloride 100 ml @ 50 mls/hr AD PRN IV; Start 03/15/25 at 21:00; Stop 03/16/25 at 06:38; Status DC Metoprolol Tartrate 25 mg TID PO Last administered on 03/15/25at 22:20; Start 03/15/25 at 21:00; Stop 03/16/25 at 06:38; Status DC Multivitamins Therapeutic 1 tab DAILY PO Last administered on 03/28/25at 09:29; Start 03/16/25 at 09:00; Stop 04/15/25 at 08:59 Ondansetron HCl 4 mg Q4HPRN PRN IVP; Start 03/15/25 at 21:00; Stop 03/21/25 at 14:11; Status DC Home Med BIDMEALS PO Last administered on 03/26/25at 18:20; Start 03/16/25 at 21:00; Stop 04/15/25 at 20:59 Ferrous Fumarate 324 mg ONCE ONCE PO Last administered on 03/16/25at 12:03; Start 03/16/25 at 10:00; Stop 03/16/25 at 10:01; Status DC Diltiazem HCl 30 mg Q6H PO Last administered on 03/18/25at 01:57; Start 03/16/25 at 20:00; Stop 03/18/25 at 07:08; Status DC Heparin Sodium (Porcine) *calculation based on ACTUAL B... AD PRN IV Last administered on 03/21/25at 19:55; Start 03/16/25 at 17:30; Stop 03/23/25 at 21:16; Status DC Heparin Sodium/ Dextrose 250 ml @ 0 mls/hr Q6H IV Last administered on 03/23/25at 01:38; Start 03/16/25 at 17:30; Stop 03/23/25 at 21:16; Status DC Home Med DAILY PO Last administered on 03/28/25at 09:32; Start 03/17/25 at 09:00; Stop 04/16/25 at 08:59 Acetylcysteine 20 mg Q8H5 IH; Start 03/17/25 at 13:00; Stop 03/17/25 at 10:57; Status DC Ipratropium [place] 0.5 MG Q8H5 IH Last administered on 03/29/25at 06:16; Start 03/17/25 at 13:00; Stop 04/16/25 at 12:59 Sodium Chloride 4 ml STK-MED ONCE IH Last administered on 03/17/25at 13:39; Start 03/17/25 at 13:25; Stop 03/17/25 at 13:25; Status DC Acetylcysteine 200 mg Q8H5 IH Last administered on 03/25/25at 06:58; Start 03/17/25 at 14:00; Stop 03/25/25 at 11:01; Status DC Cefepime HCl 2 gm Q24H IVPB Last administered on 03/26/25at 16:25; Start 03/17/25 at 15:30; Stop 03/27/25 at 15:29; Status DC Sodium Chloride 4 ml STK-MED ONCE IH Last administered on 03/17/25at 18:26; Start 03/17/25 at 17:57; Stop 03/17/25 at 17:57; Status DC Lactulose 20 gm ONCE ONCE PO Last administered on 03/17/25at 20:56; Start 03/17/25 at 20:55; Stop 03/17/25 at 20:56; Status DC Sodium Chloride 4 ml STK-MED ONCE IH Last administered on 03/17/25at 23:29; Start 03/17/25 at 23:05; Stop 03/17/25 at 23:05; Status DC Metoprolol Tartrate 25 mg TID PO Last administered on 03/22/25at 14:49; Start 03/18/25 at 09:00; Stop 03/23/25 at 06:43; Status DC Regadenoson 0.4 mg STK-MED ONCE IVP Last administered on 03/18/25at 09:49; Start 03/18/25 at 09:32; Stop 03/18/25 at 09:32; Status DC Pharmacy Profile Note 1 each ONCE MISC; Start 03/19/25 at 10:30; Stop 03/19/25 at 10:23; Status DC Vancomycin HCl 1 each AD IV; Start 03/19/25 at 10:30; Stop 04/02/25 at 10:29 Vancomycin HCl 250 ml @ 125 mls/hr Q24H IV Last administered on 03/20/25at 13:21; Start 03/19/25 at 11:00; Stop 03/21/25 at 14:14; Status DC Cefazolin Sodium 2 gm ONCALL IVPB Last administered on 03/21/25at 09:06; Start 03/21/25 at 08:00; Stop 03/21/25 at 06:19; Status DC Hydromorphone HCl 0.5 mg Q4H PRN IVP Last administered on 03/20/25at 22:59; Start 03/20/25 at 23:00; Stop 03/21/25 at 14:17; Status DC Acetaminophen/ Hydrocodone Bitart 1 tab Q6H PRN PO; Start 03/20/25 at 23:00; Stop 03/21/25 at 12:57; Status DC Cefazolin Sodium 2 gm ONCALL IVPB; Start 03/21/25 at 06:30; Stop 03/21/25 at 14:11; Status DC Cefazolin Sodium 1 gm STK-MED ONCE .ROUTE; Start 03/21/25 at 07:00; Stop 03/21/25 at 07:00; Status DC Vancomycin HCl 0 ml @ As Directed STK-MED ONCE IV; Start 03/21/25 at 07:00; Stop 03/21/25 at 07:00; Status DC Lidocaine HCl 100 mg STK-MED ONCE .ROUTE; Start 03/21/25 at 07:14; Stop 03/21/25 at 07:14; Status DC Phenylephrine HCl 10 mg STK-MED ONCE IV; Start 03/21/25 at 07:14; Stop 03/21/25 at 07:14; Status DC Ondansetron HCl 4 mg STK-MED ONCE .ROUTE; Start 03/21/25 at 07:14; Stop 03/21/25 at 07:14; Status DC Ropivacaine 150 mg STK-MED ONCE .ROUTE; Start 03/21/25 at 07:14; Stop 03/21/25 at 07:14; Status DC Succinylcholine Chloride 200 mg STK-MED ONCE .ROUTE; Start 03/21/25 at 07:14; Stop 03/21/25 at 07:14; Status DC Ephedrine Sulfate 50 mg STK-MED ONCE .ROUTE; Start 03/21/25 at 07:14; Stop 03/21/25 at 07:15; Status DC Midazolam HCl 2 mg STK-MED ONCE .ROUTE; Start 03/21/25 at 07:15; Stop 03/21/25 at 07:15; Status DC Propofol 200 mg STK-MED ONCE IV; Start 03/21/25 at 07:15; Stop 03/21/25 at 07:15; Status DC Ketamine HCl 50 mg STK-MED ONCE .ROUTE; Start 03/21/25 at 07:15; Stop 03/21/25 at 07:15; Status DC Rocuronium [place] 50 mg STK-MED ONCE .ROUTE; Start 03/21/25 at 07:15; Stop 03/21/25 at 07:15; Status DC Fentanyl Citrate 100 mcg STK-MED ONCE .ROUTE; Start 03/21/25 at 07:15; Stop 03/21/25 at 07:15; Status DC Ondansetron HCl 4 mg AD PRN IVP; Start 03/21/25 at 08:00; Stop 03/21/25 at 10:51; Status DC Metoclopramide HCl 10 mg AD PRN IVP; Start 03/21/25 at 08:00; Stop 03/21/25 at 10:51; Status DC Promethazine HCl 25 mg AD PRN IM; Start 03/21/25 at 08:00; Stop 03/21/25 at 10:51; Status DC Ketorolac Tromethamine 30 mg AD PRN IV; Start 03/21/25 at 08:00; Stop 03/21/25 at 10:51; Status DC Morphine Sulfate 2 mg AD PRN IVP; Start 03/21/25 at 08:00; Stop 03/21/25 at 10:51; Status DC Fentanyl Citrate 25 mcg Q5MIN PRN IVP; Start 03/21/25 at 08:00; Stop 03/21/25 at 10:51; Status DC Naloxone HCl 0.1 mg AD PRN IVP; Start 03/21/25 at 08:00; Stop 03/21/25 at 10:51; Status DC Acetaminophen 100 ml @ As Directed STK-MED ONCE .ROUTE; Start 03/21/25 at 07:49; Stop 03/21/25 at 07:50; Status DC Albumin Human 250 ml @ As Directed STK-MED ONCE IV; Start 03/21/25 at 08:18; Stop 03/21/25 at 08:18; Status DC Albumin Human 250 ml @ As Directed STK-MED ONCE IV; Start 03/21/25 at 08:34; Stop 03/21/25 at 08:34; Status DC Cefazolin Sodium 3 gm STK-MED ONCE IRRIG Last administered on 03/21/25at 09:51; Start 03/21/25 at 09:51; Stop 03/21/25 at 09:56; Status DC Rocuronium [place] 50 mg STK-MED ONCE .ROUTE; Start 03/21/25 at 10:20; Stop 03/21/25 at 10:21; Status DC Fentanyl Citrate 100 mcg STK-MED ONCE .ROUTE; Start 03/21/25 at 10:35; Stop 03/21/25 at 10:35; Status DC Fentanyl Citrate 100 mcg STK-MED ONCE .ROUTE; Start 03/21/25 at 12:23; Stop 03/21/25 at 12:24; Status DC Ondansetron HCl 4 mg AD PRN IVP; Start 03/21/25 at 13:00; Stop 03/21/25 at 14:11; Status DC Metoclopramide HCl 10 mg AD PRN IVP; Start 03/21/25 at 13:00; Stop 03/21/25 at 14:15; Status DC Promethazine HCl 25 mg AD PRN IM; Start 03/21/25 at 13:00; Stop 03/21/25 at 14:11; Status DC Ketorolac Tromethamine 30 mg AD PRN IV; Start 03/21/25 at 13:00; Stop 03/21/25 at 14:11; Status DC Morphine Sulfate 2 mg AD PRN IVP; Start 03/21/25 at 13:00; Stop 03/21/25 at 14:11; Status DC Fentanyl Citrate 25 mcg Q5MIN PRN IVP; Start 03/21/25 at 13:00; Stop 03/21/25 at 14:11; Status DC Naloxone HCl 0.1 mg AD PRN IVP; Start 03/21/25 at 13:00; Stop 03/21/25 at 14:11; Status DC Sodium Chloride 1,000 ml @ 100 mls/hr Q10H IV Last administered on 03/22/25at 10:49; Start 03/21/25 at 13:00; Stop 03/22/25 at 12:59; Status DC Polyethylene Glycol 17 gm DAILY PO Last administered on 03/28/25at 09:29; Start 03/22/25 at 09:00; Stop 04/21/25 at 08:59 Bisacodyl 10 mg DAILY PRN RC Last administered on 03/24/25at 20:40; Start 03/24/25 at 13:00; Stop 04/23/25 at 12:59 Ketorolac Tromethamine 15 mg Q6H PRN IV Last administered on 03/22/25at 10:51; Start 03/21/25 at 13:00; Stop 03/26/25 at 12:59; Status DC Famotidine 20 mg Q48H PO Last administered on 03/27/25at 22:27; Start 03/21/25 at 21:00; Stop 04/20/25 at 20:59 Ferrous Fumarate 324 mg DAILY PRN PO; Start 03/21/25 at 13:00; Stop 04/20/25 at 12:59 Temazepam 15 mg HS PRN PO; Start 03/21/25 at 13:00; Stop 04/20/25 at 12:59 Ondansetron HCl 4 mg Q6H PRN IVP; Start 03/21/25 at 13:00; Stop 04/20/25 at 12:59 Calcium Carbonate 500 mg Q12H PRN PO Last administered on 03/22/25at 14:53; Start 03/21/25 at 13:00; Stop 04/20/25 at 12:59 Diphenhydramine HCl 25 mg Q6H PRN IVP; Start 03/21/25 at 13:00; Stop 04/20/25 at 12:59 Acetaminophen/ Hydrocodone Bitart Q4H PRN PO Last administered on 03/25/25at 10:49; Start 03/21/25 at 13:00; Stop 03/26/25 at 12:59; Status DC Vancomycin HCl 250 ml @ 125 mls/hr Q24H IV Last administered on 03/25/25at 15:36; Start 03/21/25 at 14:30; Stop 03/26/25 at 14:04; Status DC Hydromorphone HCl 0.5 mg Q4H PRN IVP Last administered on 03/22/25at 14:50; Start 03/21/25 at 20:00; Stop 03/23/25 at 13:47; Status DC Metoprolol Tartrate 12.5 mg BID PO Last administered on 03/23/25at 09:48; Start 03/23/25 at 09:00; Stop 03/23/25 at 17:18; Status DC Sodium Chloride 1,000 ml @ 100 mls/hr Q10H IV Last administered on 03/24/25at 06:02; Start 03/23/25 at 07:00; Stop 03/24/25 at 06:39; Status DC Hydromorphone HCl 0.5 mg Q4H PRN IVP Last administered on 03/24/25at 22:26; Start 03/23/25 at 14:00; Stop 03/25/25 at 12:32; Status DC Metoprolol Tartrate 12.5 mg Q8H5 PO Last administered on 03/27/25at 05:49; Start 03/23/25 at 21:00; Stop 03/27/25 at 17:44; Status DC Pharmacy Profile Note 1 each [facility]; Start 03/23/25 at 16:30; Stop 03/25/25 at 12:28; Status DC Apixaban 2.5 mg BID PO Last administered on 03/24/25at 10:10; Start 03/23/25 at 21:00; Stop 03/24/25 at 12:24; Status DC Midodrine 10 mg DAILY18 PO Last administered on 03/26/25at 18:19; Start 03/23/25 at 18:00; Stop 04/22/25 at 17:59 Midodrine 10 mg DAILY06 PO Last administered on 03/28/25at 06:42; Start 03/24/25 at 06:00; Stop 04/23/25 at 05:59 Midodrine 10 mg DAILY10 PO Last administered on 03/28/25at 09:29; Start 03/24/25 at 10:00; Stop 04/23/25 at 09:59 Midodrine 10 mg DAILY14 PO Last administered on 03/28/25at 13:57; Start 03/24/25 at 14:00; Stop 04/23/25 at 13:59 Sodium Chloride 1,000 ml @ 60 mls/hr [id number] IV Last administered on 03/27/25at 00:46; Start 03/24/25 at 07:00; Stop 04/23/25 at 06:59 Vancomycin HCl 1 gm ONCALL ONCE IV; Start 03/27/25 at 06:00; Stop 03/26/25 at 14:02; Status DC Enoxaparin Sodium 90 mg Q24H SQ Last administered on 03/26/25at 09:03; Start 03/25/25 at 09:00; Stop 03/27/25 at 17:44; Status DC Vancomycin HCl 1 gm ONCALL ONCE IV; Start 03/27/25 at 06:00; Stop 03/27/25 at 06:01; Status DC Vancomycin HCl 750 mg Q24H IVPB Last administered on 03/28/25at 09:29; Start 03/28/25 at 10:00; Stop 04/07/25 at 09:59 Acetaminophen/ Hydrocodone Bitart 1 tab Q4H PRN PO Last administered on 03/28/25at 20:50; Start 03/26/25 at 15:00; Stop 03/31/25 at 14:59 Dexamethasone Sodium Phosphate 10 mg STK-MED ONCE .ROUTE; Start 03/27/25 at 12:00; Stop 03/27/25 at 12:00; Status DC Ondansetron HCl 4 mg STK-MED ONCE .ROUTE; Start 03/27/25 at 12:01; Stop 03/27/25 at 12:00; Status DC Etomidate 20 mg STK-MED ONCE .ROUTE; Start 03/27/25 at 12:01; Stop 03/27/25 at 12:00; Status DC Propofol 200 mg STK-MED ONCE IV; Start 03/27/25 at 12:01; Stop 03/27/25 at 12:01; Status DC Ketamine HCl 50 mg STK-MED ONCE .ROUTE; Start 03/27/25 at 12:01; Stop 03/27/25 at 12:01; Status DC Succinylcholine Chloride 200 mg STK-MED ONCE .ROUTE; Start 03/27/25 at 12:01; Stop 03/27/25 at 12:01; Status DC Midazolam HCl 2 mg STK-MED ONCE .ROUTE; Start 03/27/25 at 12:01; Stop 03/27/25 at 12:01; Status DC Ephedrine Sulfate 50 mg STK-MED ONCE .ROUTE; Start 03/27/25 at 12:01; Stop 03/27/25 at 12:02; Status DC Rocuronium [place] 50 mg STK-MED ONCE .ROUTE; Start 03/27/25 at 12:01; Stop 03/27/25 at 12:02; Status DC Phenylephrine HCl 10 mg STK-MED ONCE IV; Start 03/27/25 at 12:02; Stop 03/27/25 at 12:02; Status DC Fentanyl Citrate 100 mcg STK-MED ONCE .ROUTE; Start 03/27/25 at 12:02; Stop 03/27/25 at 12:02; Status DC Fentanyl Citrate 100 mcg STK-MED ONCE .ROUTE; Start 03/27/25 at 12:02; Stop 03/27/25 at 12:02; Status DC Lidocaine HCl 100 mg STK-MED ONCE .ROUTE; Start 03/27/25 at 12:02; Stop 03/27/25 at 12:03; Status DC Lidocaine HCl 20 ml STK-MED ONCE .ROUTE; Start 03/27/25 at 12:35; Stop 03/27/25 at 12:35; Status DC Lidocaine HCl 50 ml STK-MED ONCE .ROUTE; Start 03/27/25 at 12:35; Stop 03/27/25 at 12:35; Status DC Sodium Bicarbonate 50 ml @ As Directed STK-MED ONCE .ROUTE; Start 03/27/25 at 12:35; Stop 03/27/25 at 12:36; Status DC Iohexol 35,000 mg STK-MED ONCE IV; Start 03/27/25 at 12:35; Stop 03/27/25 at 12:36; Status DC Bupivacaine HCl 2.5 mg STK-MED ONCE IJ; Start 03/27/25 at 12:36; Stop 03/27/25 at 12:36; Status DC Heparin Sodium/ Sodium Chloride 1,000 ml @ As Directed STK-MED ONCE IV; Start 03/27/25 at 12:36; Stop 03/27/25 at 12:36; Status DC Vancomycin HCl 500 ml @ As Directed STK-MED ONCE IV; Start 03/27/25 at 12:58; Stop 03/27/25 at 12:58; Status DC Metoprolol Succinate 25 mg DAILY PO Last administered on 03/28/25at 09:29; Start 03/28/25 at 09:00; Stop 04/27/25 at 08:59 Aspirin 81 mg BID PO Last administered on 03/28/25at 20:49; Start 03/28/25 at 21:00; Stop 04/27/25 at 20:59 CHAR STEINER MD Mar 29, 2025 08:55
--- NOTE | 2025-03-29 11:35 | PN ---
SUBJECTIVE: The patient is in intensive care unit. She is status post pacemaker placement. She is comfortable, afebrile. No fever or chills. No chest pain. No nausea or vomiting. The patient is being cleared by silk snapper, Dr. Thomas, for discharge. Pending PT and rehab. OBJECTIVE: GENERAL: The patient is currently awake, alert, oriented to person, time and place, not in distress. VITAL SIGNS: In the chart. HEENT: Normocephalic, atraumatic. LUNGS: Clear to auscultation. HEART: S1, S2 are distant. ABDOMEN: Soft and nontender. EXTREMITIES: No clubbing or cyanosis. LABORATORY DATA: Reviewed. ASSESSMENT AND PLAN: * Atrial fibrillation with rapid ventricular response/congestive heart failure, status post pacemaker placement. Continue recommendations by cardiology. * Anticoagulation. The patient to continue on Lovenox. Cannot be restarted on Eliquis, Xarelto, nor warfarin. * Type 2 diabetes, diet controlled. * Status post right knee arthroplasty, continue recommendations by orthopedics. Plan to discharge when cleared by Dr. Brown. * Anemia, chronic, stable. * Status post gastric bypass. Continue with supplements. * Bronchiectasis and chronic obstructive pulmonary disease. Continue with bronchodilators. * Follow up in the a.m. with results of tests. * Chronic kidney disease, stable. TID: [id number] RECEIPT: [id number]
--- NOTE | 2025-03-29 14:21 | HMCIMG ---
EXAM: CR Chest, 1 views. CLINICAL HISTORY: Cough. COMPARISON: None provided. FINDINGS: The lungs show no infiltrate or other acute findings. No pleural effusion or pneumothorax. Stable cardiomegaly is noted. Radio-opaque pacemaker is noted. No acute osseous abnormality. IMPRESSION: 1. No acute cardiopulmonary pathology is evident. /[place]
[2025-03-30] VITALS (8 sets, daily range): BP systolic 124–134; BP diastolic 81–91; PULSE 93–106; RESP 16–20; TEMP 98.1–98.4; O2SAT 94–96
--- NOTE | 2025-03-30 07:15 | NUR ---
Dr. Brown at nurses station to update on patient status. As per Dr. Brown, discharge patient to rehab today. Nurse Diaz asked Dr. Brown to fill out medication reconciliation form, Dr. Brown stated to just resume everything as is. As per Dr. Brown, gave orders for Nurse Diaz to put in discharge orders for him because he does not remember how to do the discharge. Nurse Diaz informed Dr. Brown that patient is still pending confirmation from Cardiology for anticoagulation therapy, Dr. Brown acknowledged this information. Will wait for further orders from cardiology.
--- NOTE | 2025-03-30 09:22 | PN ---
[facility] Cardiology Progress Note CARDIOLOGY PROGRESS NOTE MARCH 30, 2025 Problems: 1. Mechanical fall without loss of consciousness 2. Dislocation of right knee prosthesis status post revision of right total knee arthroplasty March 21, 2025 3. Paroxysmal atrial fibrillation now persistent with difficult rate control status post biventricular pacemaker implant and AV node ablation March 27, 2025 4. 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 Right hand and left lower extremity hematoma 6. Chronic kidney disease stage IIIb 7. Dilated cardiomyopathy with ejection fraction of 35-40% and moderate pulmonary hypertension and [id number] mitral regurgitation 8. Morbid obesity status post gastric bypass surgery 9. Possible history of protein C and protein S deficiency followed by Hematology 10. Bronchiectasis 11. Octogenarian Blood pressure 120-130 systolic heart rate in the 90s. The patient is afebrile. Hemoglobin 9.7 platelet count [id number]. Potassium 4.4 BUN 25 creatinine 1.5 with a GFR of 34 baseline creatinine 1.6 the patient continues on aspirin famotidine metoprolol succinate midodrine potassium protocol and vancomycin. The [facility] Dr. Gibbons has recommended dabigatran 75 mg b.i.d.. This dose is not available at the hospital. I will recommend a one time dose of 150 mg and she can start on the 75 mg b.i.d. at the [facility]. BOYD NORIEGA MD Mar 30, 2025 09:22
[2025-03-30] MEDS ORDERED: DABI75CA3 PO (09:28)
[2025-03-30] MEDS: VANCOMYCIN 500MG+NS 100ML 100 ML IV SCH (09:47)
--- NOTE | 2025-03-30 10:40 | NUR ---
Report given to Ara from [facility], all questions answered, medication reconciliation form sent to fax number provided by case management.
[2025-03-30] MEDS ORDERED: HYDR-4060 PO (11:37)
--- NOTE | 2025-03-30 15:45 | NUR ---
EMS notified at this time for transport. Pending arrival.
--- NOTE | 2025-03-30 16:27 | PN ---
The patient is postop day 9. Status post revision total knee arthroplasty She is also status post pacemaker placement Her vital signs remained stable and afebrile. The patient has much better pain control. She has been able to ambulate in the room with physical therapy and able to sit for several hours in the chair. Still pending the decision by the medical team about what type of anticoagulant and this decision was made last night by oncology/process trainer of placing the patient on Pradaxa This morning she is in good spirits, awake, alert and oriented. Her right lower extremity shows decreased inflammation, the incision is well he aled and the dressing was removed two days ago. The plan will be for the patient to be transferred once the primary doctor agree s. We will send prescription for pain medication to the senior living and apparently the Pradaxa has a already been prescribed. She is to follow-up in my office in three weeks and continue with the physical therapy and rehabilitation at the senior living. Vitals/Labs Vital Signs Date Time Temp Pulse Resp B/P (MAP) Pulse Ox O2 Delivery O2 Flow Rate FiO2 03/30/25 14:47 94 18 N/A Room Air 21 03/30/25 11:00 98.2 131/85 97 03/30/25 09:15 0 Medications Current Medications Home Med 2 INHALATIONS BID BID IH Last administered on 03/30/25at 09:49; Start 03/16/25 at 09:00; Stop 04/15/25 at 08:59 Lidocaine 1 each DAILY TP Last administered on 03/30/25at 09:48; Start 03/16/25 at 09:00; Stop 04/15/25 at 08:59 Azithromycin 250 mg QMOFR PO Last administered on 03/25/25at 08:27; Start 03/18/25 at 09:00; Stop 03/28/25 at 08:59; Status DC Acetaminophen 650 mg Q6H PRN PO; Start 03/15/25 at 21:00; Stop 04/14/25 at 20:59 Acetaminophen/ Hydrocodone Bitart 1 tab Q6H PRN PO Last administered on 03/16/25at 21:00; Start 03/15/25 at 21:00; Stop 03/20/25 at 20:59; Status DC Aspirin 81 mg DAILY PO Last administered on 03/16/25at 09:35; Start 03/16/25 at 09:00; Stop 03/16/25 at 16:20; Status DC Hydromorphone HCl 0.5 mg Q4H PRN IVP Last administered on 03/20/25at 13:28; Start 03/15/25 at 21:00; Stop 03/20/25 at 20:59; Status DC Enoxaparin Sodium 30 mg DAILY SQ Last administered on 03/16/25at 09:39; Start 03/16/25 at 09:00; Stop 03/16/25 at 16:24; Status DC Metoprolol Tartrate 5 mg Q5M PRN IV Last administered on 03/18/25at 00:23; Start 03/15/25 at 21:00 Diltiazem HCl 30 mg Q8H5 PO Last administered on 03/16/25at 14:08; Start 03/15/25 at 21:00; Stop 03/16/25 at 16:20; Status DC Furosemide 40 mg Q48H PO Last administered on 03/22/25at 10:48; Start 03/18/25 at 09:00; Stop 03/25/25 at 12:28; Status DC Dronedarone 400 mg BID PO Last administered on 03/23/25at 09:48; Start 03/15/25 at 21:00; Stop 03/23/25 at 17:18; Status DC Ipratropium Bettendorf 0.5 MG BID IH Last administered on 03/17/25at 06:30; Start 03/15/25 at 21:00; Stop 03/17/25 at 11:07; Status DC Lactulose 20 gm DAILY PO Last administered on 03/30/25at 09:47; Start 03/16/25 at 09:00; Stop 04/15/25 at 08:59 Pantoprazole Sodium 40 mg DAILY PO Last administered on 03/30/25at 09:48; Start 03/16/25 at 09:00; Stop 04/15/25 at 08:59 Sennosides 1 tab HS PO Last administered on 03/29/25at 20:42; Start 03/15/25 at 21:00; Stop 04/14/25 at 20:59 Buspirone HCl 10 mg HS PO Last administered on 03/29/25at 20:40; Start 03/15/25 at 21:00; Stop 04/14/25 at 20:59 Melatonin 10 mg HS PO Last administered on 03/29/25at 20:41; Start 03/15/25 at 21:00; Stop 04/14/25 at 20:59 Home Med HS PO Last administered on 03/15/25at 22:59; Start 03/16/25 at 21:00; Stop 03/16/25 at 03:20; Status DC Home Med BID NASAL; Start 03/16/25 at 09:00; Stop 04/15/25 at 08:59 Baclofen 20 mg HS PRN PO Last administered on 03/17/25at 20:48; Start 03/15/25 at 21:00; Stop 04/14/25 at 20:59 Vitamin B Complex 1,000 mcg DAILY PO; Start 03/16/25 at 09:00; Stop 03/17/25 at 02:33; Status DC Dextrose 50 ml AD PRN IV; Start 03/15/25 at 21:00; Stop 04/14/25 at 20:59 Glucagon 1 mg AD PRN IM; Start 03/15/25 at 21:00; Stop 04/14/25 at 20:59 Magnesium Sulfate 50 ml @ 0 mls/hr PROTOCOL PRN IV Last administered on 03/29/25at 10:09; Start 03/15/25 at 21:00; Stop 04/14/25 at 20:59 Potassium Chloride 100 ml @ 100 mls/hr AD PRN IV; Start 03/15/25 at 21:00; Stop 04/14/25 at 20:59 Potassium Chloride 20 meq AD PRN PO; Start 03/15/25 at 21:00; Stop 04/14/25 at 20:59 Potassium Chloride 20 meq AD PRN PO; Start 03/15/25 at 21:00; Stop 04/14/25 at 20:59 Potassium Chloride 100 ml @ 50 mls/hr AD PRN IV; Start 03/15/25 at 21:00; Stop 03/16/25 at 06:38; Status DC Metoprolol Tartrate 25 mg TID PO Last administered on 03/15/25at 22:20; Start 03/15/25 at 21:00; Stop 03/16/25 at 06:38; Status DC Multivitamins Therapeutic 1 tab DAILY PO Last administered on 03/30/25at 09:48; Start 03/16/25 at 09:00; Stop 04/15/25 at 08:59 Ondansetron HCl 4 mg Q4HPRN PRN IVP; Start 03/15/25 at 21:00; Stop 03/21/25 at 14:11; Status DC Home Med BIDMEALS PO Last administered on 03/30/25at 09:49; Start 03/16/25 at 21:00; Stop 04/15/25 at 20:59 Ferrous Fumarate 324 mg ONCE ONCE PO Last administered on 03/16/25at 12:03; Start 03/16/25 at 10:00; Stop 03/16/25 at 10:01; Status DC Diltiazem HCl 30 mg Q6H PO Last administered on 03/18/25at 01:57; Start 03/16/25 at 20:00; Stop 03/18/25 at 07:08; Status DC Heparin Sodium (Porcine) *calculation based on ACTUAL B... AD PRN IV Last administered on 03/21/25at 19:55; Start 03/16/25 at 17:30; Stop 03/23/25 at 21:16; Status DC Heparin Sodium/ Dextrose 250 ml @ 0 mls/hr Q6H IV Last administered on 03/23/25at 01:38; Start 03/16/25 at 17:30; Stop 03/23/25 at 21:16; Status DC Home Med DAILY PO Last administered on 03/30/25at 09:49; Start 03/17/25 at 09:00; Stop 04/16/25 at 08:59 Acetylcysteine 20 mg Q8H5 IH; Start 03/17/25 at 13:00; Stop 03/17/25 at 10:57; Status DC Ipratropium [place]ettendorf 0.5 MG Q8H5 IH Last administered on 03/30/25at 14:46; Start 03/17/25 at 13:00; Stop 04/16/25 at 12:59 Sodium Chloride 4 ml STK-MED ONCE IH Last administered on 03/17/25at 13:39; Start 03/17/25 at 13:25; Stop 03/17/25 at 13:25; Status DC Acetylcysteine 200 mg Q8H5 IH Last administered on 03/25/25at 06:58; Start 03/17/25 at 14:00; Stop 03/25/25 at 11:01; Status DC Cefepime HCl 2 gm Q24H IVPB Last administered on 03/26/25at 16:25; Start 03/17/25 at 15:30; Stop 03/27/25 at 15:29; Status DC Sodium Chloride 4 ml STK-MED ONCE IH Last administered on 03/17/25at 18:26; Start 03/17/25 at 17:57; Stop 03/17/25 at 17:57; Status DC Lactulose 20 gm ONCE ONCE PO Last administered on 03/17/25at 20:56; Start 03/17/25 at 20:55; Stop 03/17/25 at 20:56; Status DC Sodium Chloride 4 ml STK-MED ONCE IH Last administered on 03/17/25at 23:29; Start 03/17/25 at 23:05; Stop 03/17/25 at 23:05; Status DC Metoprolol Tartrate 25 mg TID PO Last administered on 03/22/25at 14:49; Start 03/18/25 at 09:00; Stop 03/23/25 at 06:43; Status DC Regadenoson 0.4 mg STK-MED ONCE IVP Last administered on 03/18/25at 09:49; Start 03/18/25 at 09:32; Stop 03/18/25 at 09:32; Status DC Pharmacy Profile Note 1 each ONCE MISC; Start 03/19/25 at 10:30; Stop 03/19/25 at 10:23; Status DC Vancomycin HCl 1 each AD IV; Start 03/19/25 at 10:30; Stop 04/02/25 at 10:29 Vancomycin HCl 250 ml @ 125 mls/hr Q24H IV Last administered on 03/20/25at 13:21; Start 03/19/25 at 11:00; Stop 03/21/25 at 14:14; Status DC Cefazolin Sodium 2 gm ONCALL IVPB Last administered on 03/21/25at 09:06; Start 03/21/25 at 08:00; Stop 03/21/25 at 06:19; Status DC Hydromorphone HCl 0.5 mg Q4H PRN IVP Last administered on 03/20/25at 22:59; Start 03/20/25 at 23:00; Stop 03/21/25 at 14:17; Status DC Acetaminophen/ Hydrocodone Bitart 1 tab Q6H PRN PO; Start 03/20/25 at 23:00; Stop 03/21/25 at 12:57; Status DC Cefazolin Sodium 2 gm ONCALL IVPB; Start 03/21/25 at 06:30; Stop 03/21/25 at 14:11; Status DC Cefazolin Sodium 1 gm STK-MED ONCE .ROUTE; Start 03/21/25 at 07:00; Stop 03/21/25 at 07:00; Status DC Vancomycin HCl 0 ml @ As Directed STK-MED ONCE IV; Start 03/21/25 at 07:00; Stop 03/21/25 at 07:00; Status DC Lidocaine HCl 100 mg STK-MED ONCE .ROUTE; Start 03/21/25 at 07:14; Stop 03/21/25 at 07:14; Status DC Phenylephrine HCl 10 mg STK-MED ONCE IV; Start 03/21/25 at 07:14; Stop 03/21/25 at 07:14; Status DC Ondansetron HCl 4 mg STK-MED ONCE .ROUTE; Start 03/21/25 at 07:14; Stop 03/21/25 at 07:14; Status DC Ropivacaine 150 mg STK-MED ONCE .ROUTE; Start 03/21/25 at 07:14; Stop 03/21/25 at 07:14; Status DC Succinylcholine Chloride 200 mg STK-MED ONCE .ROUTE; Start 03/21/25 at 07:14; Stop 03/21/25 at 07:14; Status DC Ephedrine Sulfate 50 mg STK-MED ONCE .ROUTE; Start 03/21/25 at 07:14; Stop 03/21/25 at 07:15; Status DC Midazolam HCl 2 mg STK-MED ONCE .ROUTE; Start 03/21/25 at 07:15; Stop 03/21/25 at 07:15; Status DC Propofol 200 mg STK-MED ONCE IV; Start 03/21/25 at 07:15; Stop 03/21/25 at 07:15; Status DC Ketamine HCl 50 mg STK-MED ONCE .ROUTE; Start 03/21/25 at 07:15; Stop 03/21/25 at 07:15; Status DC Rocuronium [place]ettendorf 50 mg STK-MED ONCE .ROUTE; Start 03/21/25 at 07:15; Stop 03/21/25 at 07:15; Status DC Fentanyl Citrate 100 mcg STK-MED ONCE .ROUTE; Start 03/21/25 at 07:15; Stop 03/21/25 at 07:15; Status DC Ondansetron HCl 4 mg AD PRN IVP; Start 03/21/25 at 08:00; Stop 03/21/25 at 1 0:51; Status DC Metoclopramide HCl 10 mg AD PRN IVP; Start 03/21/25 at 08:00; Stop 03/21/25 at 10:51; Status DC Promethazine HCl 25 mg AD PRN IM; Start 03/21/25 at 08:00; Stop 03/21/25 at 10:51; Status DC Ketorolac Tromethamine 30 mg AD PRN IV; Start 03/21/25 at 08:00; Stop 03/21/25 at 10:51; Status DC Morphine Sulfate 2 mg AD PRN IVP; Start 03/21/25 at 08:00; Stop 03/21/25 at 10:51; Status DC Fentanyl Citrate 25 mcg Q5MIN PRN IVP; Start 03/21/25 at 08:00; Stop 03/21/25 at 10:51; Status DC Naloxone HCl 0.1 mg AD PRN IVP; Start 03/21/25 at 08:00; Stop 03/21/25 at 10:51; Status DC Acetaminophen 100 ml @ As Directed STK-MED ONCE .ROUTE; Start 03/21/25 at 07:49; Stop 03/21/25 at 07:50; Status DC Albumin Human 250 ml @ As Directed STK-MED ONCE IV; Start 03/21/25 at 08:18; Stop 03/21/25 at 08:18; Status DC Albumin Human 250 ml @ As Directed STK-MED ONCE IV; Start 03/21/25 at 08:34; Stop 03/21/25 at 08:34; Status DC Cefazolin Sodium 3 gm STK-MED ONCE IRRIG Last administered on 03/21/25at 09:51; Start 03/21/25 at 09:51; Stop 03/21/25 at 09:56; Status DC Rocuronium Bettendorf 50 mg STK-MED ONCE .ROUTE; Start 03/21/25 at 10:20; Stop 03/21/25 at 10:21; Status DC Fentanyl Citrate 100 mcg STK-MED ONCE .ROUTE; Start 03/21/25 at 10:35; Stop 03/21/25 at 10:35; Status DC Fentanyl Citrate 100 mcg STK-MED ONCE .ROUTE; Start 03/21/25 at 12:23; Stop 03/21/25 at 12:24; Status DC Ondansetron HCl 4 mg AD PRN IVP; Start 03/21/25 at 13:00; Stop 03/21/25 at 14:11; Status DC Metoclopramide HCl 10 mg AD PRN IVP; Start 03/21/25 at 13:00; Stop 03/21/25 at 14:15; Status DC Promethazine HCl 25 mg AD PRN IM; Start 03/21/25 at 13:00; Stop 03/21/25 at 14:11; Status DC Ketorolac Tromethamine 30 mg AD PRN IV; Start 03/21/25 at 13:00; Stop 03/21/25 at 14:11; Status DC Morphine Sulfate 2 mg AD PRN IVP; Start 03/21/25 at 13:00; Stop 03/21/25 at 14:11; Status DC Fentanyl Citrate 25 mcg Q5MIN PRN IVP; Start 03/21/25 at 13:00; Stop 03/21/25 at 14:11; Status DC Naloxone HCl 0.1 mg AD PRN IVP; Start 03/21/25 at 13:00; Stop 03/21/25 at 14:11; Status DC Sodium Chloride 1,000 ml @ 100 mls/hr Q10H IV Last administered on 03/22/25at 10:49; Start 03/21/25 at 13:00; Stop 03/22/25 at 12:59; Status DC Polyethylene Glycol 17 gm DAILY PO Last administered on 03/30/25at 09:47; Start 03/22/25 at 09:00; Stop 04/21/25 at 08:59 Bisacodyl 10 mg DAILY PRN RC Last administered on 03/24/25at 20:40; Start 03/24/25 at 13:00; Stop 04/23/25 at 12:59 Ketorolac Tromethamine 15 mg Q6H PRN IV Last administered on 03/22/25at 10:51; Start 03/21/25 at 13:00; Stop 03/26/25 at 12:59; Status DC Famotidine 20 mg Q48H PO Last administered on 03/29/25at 20:41; Start 03/21/25 at 21:00; Stop 04/20/25 at 20:59 Ferrous Fumarate 324 mg DAILY PRN PO; Start 03/21/25 at 13:00; Stop 04/20/25 at 12:59 Temazepam 15 mg HS PRN PO; Start 03/21/25 at 13:00; Stop 04/20/25 at 12:59 Ondansetron HCl 4 mg Q6H PRN IVP; Start 03/21/25 at 13:00; Stop 04/20/25 at 12:59 Calcium Carbonate 500 mg Q12H PRN PO Last administered on 03/22/25at 14:53; Start 03/21/25 at 13:00; Stop 04/20/25 at 12:59 Diphenhydramine HCl 25 mg Q6H PRN IVP; Start 03/21/25 at 13:00; Stop 04/20/25 at 12:59 Acetaminophen/ Hydrocodone Bitart Q4H PRN PO Last administered on 03/25/25at 10:49; Start 03/21/25 at 13:00; Stop 03/26/25 at 12:59; Status DC Vancomycin HCl 250 ml @ 125 mls/hr Q24H IV Last administered on 03/25/25at 15:36; Start 03/21/25 at 14:30; Stop 03/26/25 at 14:04; Status DC Hydromorphone HCl 0.5 mg Q4H PRN IVP Last administered on 03/22/25at 14:50; Start 03/21/25 at 20:00; Stop 03/23/25 at 13:47; Status DC Metoprolol Tartrate 12.5 mg BID PO Last administered on 03/23/25at 09:48; Start 03/23/25 at 09:00; Stop 03/23/25 at 17:18; Status DC Sodium Chloride 1,000 ml @ 100 mls/hr Q10H IV Last administered on 03/24/25at 06:02; Start 03/23/25 at 07:00; Stop 03/24/25 at 06:39; Status DC Hydromorphone HCl 0.5 mg Q4H PRN IVP Last administered on 03/24/25at 22:26; Start 03/23/25 at 14:00; Stop 03/25/25 at 12:32; Status DC Metoprolol Tartrate 12.5 mg Q8H5 PO Last administered on 03/27/25at 05:49; Start 03/23/25 at 21:00; Stop 03/27/25 at 17:44; Status DC Pharmacy Profile Note 1 each AD [facility]; Start 03/23/25 at 16:30; Stop 03/25/25 at 12:28; Status DC Apixaban 2.5 mg BID PO Last administered on 03/24/25at 10:10; Start 03/23/25 at 21:00; Stop 03/24/25 at 12:24; Status DC Midodrine 10 mg DAILY18 PO Last administered on 03/26/25at 18:19; Start 03/23/25 at 18:00; Stop 04/22/25 at 17:59 Midodrine 10 mg DAILY06 PO Last administered on 03/28/25at 06:42; Start 03/24/25 at 06:00; Stop 04/23/25 at 05:59 Midodrine 10 mg DAILY10 PO Last administered on 03/28/25at 09:29; Start 03/24/25 at 10:00; Stop 04/23/25 at 09:59 Midodrine 10 mg DAILY14 PO Last administered on 03/28/25at 13:57; Start 03/24/25 at 14:00; Stop 04/23/25 at 13:59 Sodium Chloride 1,000 ml @ 60 mls/hr [id number] IV Last administered on 03/27/25at 00:46; Start 03/24/25 at 07:00; Stop 04/23/25 at 06:59 Vancomycin HCl 1 gm ONCALL ONCE IV; Start 03/27/25 at 06:00; Stop 03/26/25 at 14:02; Status DC Enoxaparin Sodium 90 mg Q24H SQ Last administered on 03/26/25at 09:03; Start 03/25/25 at 09:00; Stop 03/27/25 at 17:44; Status DC Vancomycin HCl 1 gm ONCALL ONCE IV; Start 03/27/25 at 06:00; Stop 03/27/25 at 06:01; Status DC Vancomycin HCl 750 mg Q24H IVPB Last administered on 03/28/25at 09:29; Start 03/28/25 at 10:00; Stop 03/29/25 at 09:08; Status DC Acetaminophen/ Hydrocodone Bitart 1 tab Q4H PRN PO Last administered on 03/30/25at 12:45; Start 03/26/25 at 15:00; Stop 03/31/25 at 14:59 Dexamethasone Sodium Phosphate 10 mg STK-MED ONCE .ROUTE; Start 03/27/25 at 12:00; Stop 03/27/25 at 12:00; Status DC Ondansetron HCl 4 mg STK-MED ONCE .ROUTE; Start 03/27/25 at 12:01; Stop 05/09 at 12:00; Status DC Etomidate 20 mg STK-MED ONCE .ROUTE; Start 03/27/25 at 12:01; Stop 03/27/25 at 12:00; Status DC Propofol 200 mg STK-MED ONCE IV; Start 03/27/25 at 12:01; Stop 03/27/25 at 12:01; Status DC Ketamine HCl 50 mg STK-MED ONCE .ROUTE; Start 03/27/25 at 12:01; Stop 03/27/25 at 12:01; Status DC Succinylcholine Chloride 200 mg STK-MED ONCE .ROUTE; Start 03/27/25 at 12:01; Stop 03/27/25 at 12:01; Status DC Midazolam HCl 2 mg STK-MED ONCE .ROUTE; Start 03/27/25 at 12:01; Stop 03/27/25 at 12:01; Status DC Ephedrine Sulfate 50 mg STK-MED ONCE .ROUTE; Start 03/27/25 at 12:01; Stop 03/27/25 at 12:02; Status DC Rocuronium Bettendorf 50 mg STK-MED ONCE .ROUTE; Start 03/27/25 at 12:01; Stop 03/27/25 at 12:02; Status DC Phenylephrine HCl 10 mg STK-MED ONCE IV; Start 03/27/25 at 12:02; Stop 03/27/25 at 12:02; Status DC Fentanyl Citrate 100 mcg STK-MED ONCE .ROUTE; Start 03/27/25 at 12:02; Stop 03/27/25 at 12:02; Status DC Fentanyl Citrate 100 mcg STK-MED ONCE .ROUTE; Start 03/27/25 at 12:02; Stop 03/27/25 at 12:02; Status DC Lidocaine HCl 100 mg STK-MED ONCE .ROUTE; Start 03/27/25 at 12:02; Stop 03/16 07/10 at 12:03; Status DC Lidocaine HCl 20 ml STK-MED ONCE .ROUTE; Start 03/27/25 at 12:35; Stop 03/27/25 at 12:35; Status DC Lidocaine HCl 50 ml STK-MED ONCE .ROUTE; Start 03/27/25 at 12:35; Stop 03/27/25 at 12:35; Status DC Sodium Bicarbonate 50 ml @ As Directed STK-MED ONCE .ROUTE; Start 03/27/25 at 12:35; Stop 03/27/25 at 12:36; Status DC Iohexol 35,000 mg STK-MED ONCE IV; Start 03/27/25 at 12:35; Stop 03/27/25 at 12:36; Status DC Bupivacaine HCl 2.5 mg STK-MED ONCE IJ; Start 03/27/25 at 12:36; Stop 03/27/25 at 12:36; Status DC Heparin Sodium/ Sodium Chloride 1,000 ml @ As Directed STK-MED ONCE IV; Start 03/27/25 at 12:36; Stop 03/27/25 at 12:36; Status DC Vancomycin HCl 500 ml @ As Directed STK-MED ONCE IV; Start 03/27/25 at 12:58; Stop 03/27/25 at 12:58; Status DC Metoprolol Succinate 25 mg DAILY PO Last administered on 03/30/25at 09:48; Start 03/28/25 at 09:00; Stop 04/27/25 at 08:59 Aspirin 81 mg BID PO Last administered on 03/30/25at 09:48; Start 03/28/25 at 21:00; Stop 04/27/25 at 20:59 Dabigatran 75 mg BID PO; Start 03/30/25 at 09:00; Stop 03/29/25 at 08:57; Status DC Vancomycin HCl 100 ml @ 100 mls/hr Q24H IV Last administered on 03/30/25at 09:47; Start 03/30/25 at 10:00; Stop 04/09/25 at 09:59 Dabigatran 150 mg ONCE ONCE PO Last administered on 03/30/25at 09:48; Start 03/30/25 at 09:30; Stop 03/30/25 at 09:33; Status DC ALEKSANDR GARCIA MD Mar 30, 2025 16:27
--- NOTE | 2025-03-30 18:00 | NUR ---
Patient discharged at this time, all personal items and documentation taken by patient and family. Patient informed of follow up appointments and of new prescriptions, medication reconciliation form faxed to [facility], copy also provided to patient. Telemetry pack were removed, patient discharged with midline in place for antibiotic therapy. Prescription for Pradaxa sent to [facility] in [place] on [address] Patient transported out of facility via stretcher by EMS.
--- NOTE | 2025-03-30 21:02 | DS ---
Discharge Summary DIAGNOSE(S): [1. Mechanical fall without loss of consciousness 2. Dislocation of right knee prosthesis status post revision of right total knee arthroplasty March 21, 2025 3. Paroxysmal atrial fibrillation now persistent with difficult rate control status post biventricular pacemaker implant and AV node ablation March 27, 2025 4. 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 Right hand and left lower extremity hematoma 6. Chronic kidney disease stage IIIb 7. Dilated cardiomyopathy with ejection fraction of 35-40% and moderate pulmona ry hypertension and [id number] mitral regurgitation 8. Morbid obesity status post gastric bypass surgery 9. Possible history of protein C and protein S deficiency followed by Hematology 10. Bronchiectasis 11. 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): [[facility]] PROCEDURE(S)/TREATMENT(S): [] PROBLEM(S): [] FOLLOW-UP TEST(S): [None] DISCHARGE INSTRUCTIONS: [Discharge to [facility] facility] Home Meds Active Scripts Hydrocodone/Acetaminophen (Hydrocodon-Acetaminophen 5-325) 5 Mg-325 Mg Tablet, 1-2 TAB PO Q8H PRN for ACUTE POST-OP PAIN (G89.18) for 7 Days, #42 TAB 0 Refills Prov:ALEKSANDR GARCIA MD 03/30/25 Dabigatran Etexilate Mesylate (Pradaxa) 75 Mg Cap, 1 CAP PO BID for 30 Days, #60 CAP 0 Refills Prov:BOYD NORIEGA MD 03/30/25 Reported Medications Hydrocodone/Acetaminophen (Hydrocodon-Acetaminophn 10-325) 10 Mg-325 Mg Tablet, 1 EACH PO BID PRN for PAIN LEVEL 4 TO 6, TAB 03/17/25 Metoprolol Tartrate (Metoprolol Tartrate) 25 Mg Tablet, 1 TAB PO TID for 30 Days, #60 TAB 0 Refills 03/17/25 Iron Fum & Ps Cmp/Vit C & B (Integra Capsule) 125 Mg-40 Mg-3 Mg Capsule, 1 CAP PO DAILY for 30 Days, #30 CAP 0 Refills 03/17/25 Aspirin (ASPIRIN 81MG CHEW TAB) 81 Mg Tab.chew, 1 TAB PO DAILY for 30 Days, #30 TAB 0 Refills 03/17/25 Dronedarone Hydrochloride (Multaq) 400 Mg Tablet, 1 TAB PO BID for 30 Days, #60 TAB 0 Refills 03/17/25 Omeprazole (Omeprazole) 40 Mg Capsule.dr, 1 CAP PO DAILY 02/18/24 Biotin/Lutein (Biotin Plus 5,000 Mcg Tablet) 5,000 Mcg-10 Mg Tablet, 1 EACH PO DAILY, TAB 02/18/24 [] No Conflict Check, 1 TAB PO DAILY 02/18/24 Furosemide (Furosemide) 40 Mg Tablet, 40 MG PO QMOWEFR, TAB 02/18/24 Melatonin/Pyridoxine HCl (B6) (Melatonin 10 mg Tablet) 10 Mg-10 Mg Tab.mphase, 1 EACH PO HS 02/17/24 Buspirone HCl (Buspirone HCl) 10 Mg Tablet, 10 MG PO HS, TAB 02/17/24 Cranberry Extract (Cranberry) 500 Mg Tablet, 500 MG PO HS, TAB 02/17/24 Venlafaxine HCl (Venlafaxine HCl ER) 75 Mg Cap.er.24h, 1 CAP PO HS 02/17/24 Sennosides (Senna) 8.6 Mg Tablet, 8.6 MG PO HS, TAB 03/22/23 Acetaminophen (Acetaminophen) 500 Mg Tablet, 500 MG PO BID PRN for PAIN LEVEL 1 TO 3, TAB 03/22/23 Baclofen (Baclofen) 20 Mg Tablet, 20 MG PO HS, TAB 03/22/23 Cyanocobalamin (Vitamin B-12) (Vitamin B-12) 1,000 Mcg Capsule, 1000 MCG PO HARMONY LY, CAP 07/22/20 Discontinued Reported Medications Budesonide/Glycopyr/Formoterol (Breztri Aerosphere Inhaler) 160 Mcg-9 Mcg-4.8 Mcg/Actuation Hfa.aer.ad, 10.7 GM IH DAILY 02/18/24 Furosemide (Lasix 20Mg Tab) 20 Mg Tablet, 20 MG PO QTUTHSA, TAB 02/18/24 Furosemide (Furosemide) 20 Mg Tablet, 1 TAB PO AD Tuesday & . 02/18/24 [vit c] No Conflict Check, 200 MG PO HS 02/17/24 Docusate Sodium (Docusate Sodium) 100 Mg Capsule, 100 MG PO BID, CAP 03/22/23 Acetaminophen with Codeine (Acetaminophen-Cod #3 Tablet) 300 Mg-30 Mg Tablet, 1 EACH PO BID PRN for PAIN LEVEL 4 TO 6, TAB 03/22/23 Amiodarone HCl (Amiodarone HCl) 200 Mg Tablet, 200 MG PO BID, TAB 01/26/21 Rivaroxaban (Xarelto) 20 Mg Tablet, 20 MG PO HS, TAB 07/22/20 INDERJIT CRISTOBAL MD Mar 30, 2025 21:02
--- NOTE | 2025-03-31 20:24 | PN ---
SUBJECTIVE: The patient is tolerating physical therapy. Having no fever or chills. No chest pain. No nausea or vomiting. Having some episodes of anxiety overnight. Feeling significantly improved. Currently comfortable in bed. OBJECTIVE: GENERAL: Awake, alert, oriented, in person, time and place. VITAL SIGNS: Blood pressure 123/79, pulse 97, respirations 18, O2 saturation on room air 95%. HEENT: Normocephalic, atraumatic. LUNGS: Decreased breath sounds bilaterally with productive cough. HEART: S1, S2 are distant. ABDOMEN: Prominent, soft, nontender. EXTREMITIES: No clubbing, cyanosis. LABORATORY DATA: WBC count 7.7, hemoglobin 9.7, platelets 281. Sodium 141, potassium 4.4, BUN 25, creatinine 1.5. Chest x-ray from yesterday post procedure shows no acute cardiopulmonary pathology. ASSESSMENT AND PLAN: * Status post pacemaker placement, stable. Continue recommendation by Cardiology. * Atrial fibrillation, controlled rate, stable. * Anticoagulation: Continue with low molecular weight heparin. The patient is unable to take Eliquis, Xarelto, warfarin, or Pradaxa. * Type 2 diabetes, controlled. * Congestive heart failure, newly diagnosed. Continue with current treatment. * Status post right knee arthroplasty. Continue recommendations from Orthopedics. Plan to discharge when cleared by him. * Anemia, chronic, stable. * Bronchiectasis and chronic obstructive lung disease. Continue nebulization. * Chronic kidney disease, stable. Follow up with a.m. labs. TID: [id number] RECEIPT: [id number]
[2025-04-01 10:13] LABS: FREE KAPPA LIGHT CHAINS,S 29.4 mg/L (3.3-19.4)
== END 2025-03-30 17:44 | disposition home or self-care (01) | DRG 467 ==
LOC: 3CH 20:02 → 2DH 03-27 19:00
PROVIDERS: ADMIT Internal Medicine; ATTEND Internal Medicine
PROC: 3E073KZ Introduction of Other Diagnostic Substance into Coronary Artery, Percutaneous Approach (ICD-10-PCS; 2025-03-19)
PROC: 4A02XM4 Measurement of Cardiac Total Activity, External Approach (ICD-10-PCS; 2025-03-19)
PROC: 0SRC0J9 Replacement of Right Knee Joint with Synthetic Substitute, Cemented, Open Approach (ICD-10-PCS; 2025-03-21)
PROC: 30233N1 Transfusion of Nonautologous Red Blood Cells into Peripheral Vein, Percutaneous Approach (ICD-10-PCS; 2025-03-21)
PROC: 0SPC0JZ Removal of Synthetic Substitute from Right Knee Joint, Open Approach (ICD-10-PCS; principal; 2025-03-21 08:06)
PROC: 02583ZZ Destruction of Conduction Mechanism, Percutaneous Approach (ICD-10-PCS; 2025-03-27)
PROC: 0JH602Z Insertion of Monitoring Device into Chest Subcutaneous Tissue and Fascia, Open Approach (ICD-10-PCS; 2025-03-27)
PROC: 0JH606Z Insertion of Pacemaker, Dual Chamber into Chest Subcutaneous Tissue and Fascia, Open Approach (ICD-10-PCS; 2025-03-27)
PROC: 02H63JZ Insertion of Pacemaker Lead into Right Atrium, Percutaneous Approach (ICD-10-PCS; 2025-03-27)
PROC: 02HK3JZ Insertion of Pacemaker Lead into Right Ventricle, Percutaneous Approach (ICD-10-PCS; 2025-03-27)
PROC: 02HL3JZ Insertion of Pacemaker Lead into Left Ventricle, Percutaneous Approach (ICD-10-PCS; 2025-03-27)
PROC: 4A023FZ Measurement of Cardiac Rhythm, Percutaneous Approach (ICD-10-PCS; 2025-03-27)
PROC: 4A0234Z Measurement of Cardiac Electrical Activity, Percutaneous Approach (ICD-10-PCS; 2025-03-27)
PROC: 02K83ZZ Map Conduction Mechanism, Percutaneous Approach (ICD-10-PCS; 2025-03-27)
DX: T84.022A Instability of internal right knee prosthesis, initial encounter (principal); D62 Acute posthemorrhagic anemia; E46 Unspecified protein-calorie malnutrition; I27.20 Pulmonary hypertension, unspecified; I13.0 Hypertensive heart and chronic kidney disease with heart failure and stage 1 through stage 4 chronic kidney disease, or unspecified chronic kidney disease; I42.0 Dilated cardiomyopathy; I48.19 Other persistent atrial fibrillation; D63.8 Anemia in other chronic diseases classified elsewhere; N39.0 Urinary tract infection, site not specified; Z79.01 Long term (current) use of anticoagulants; E11.22 Type 2 diabetes mellitus with diabetic chronic kidney disease; E66.01 Morbid (severe) obesity due to excess calories; N18.32 Chronic kidney disease, stage 3b; J44.9 Chronic obstructive pulmonary disease, unspecified; F32.A Depression, unspecified; I08.1 Rheumatic disorders of both mitral and tricuspid valves; I42.9 Cardiomyopathy, unspecified; D64.9 Anemia, unspecified; S83.104A Unspecified dislocation of right knee, initial encounter; J47.9 Bronchiectasis, uncomplicated; Y83.8 Other surgical procedures as the cause of abnormal reaction of the patient, or of later complication, without mention of misadventure at the time of the procedure; E78.5 Hyperlipidemia, unspecified; E83.42 Hypomagnesemia; F41.9 Anxiety disorder, unspecified; G89.29 Other chronic pain; I25.10 Atherosclerotic heart disease of native coronary artery without angina pectoris; I95.1 Orthostatic hypotension; K59.00 Constipation, unspecified; M10.9 Gout, unspecified; S83.105A Unspecified dislocation of left knee, initial encounter; S83.124 Posterior dislocation of proximal end of tibia, right knee; W18.39XA Other fall on same level, initial encounter; Y92.89 Other specified places as the place of occurrence of the external cause; Y93.89 Activity, other specified; Y99.8 Other external cause status; Z79.82 Long term (current) use of aspirin; Z80.3 Family history of malignant neoplasm of breast; Z82.0 Family history of epilepsy and other diseases of the nervous system; Z82.49 Family history of ischemic heart disease and other diseases of the circulatory system; Z83.3 Family history of diabetes mellitus; Z86.73 Personal history of transient ischemic attack (TIA), and cerebral infarction without residual deficits; Z88.5 Allergy status to narcotic agent; Z90.49 Acquired absence of other specified parts of digestive tract; Z90.710 Acquired absence of both cervix and uterus; Z95.0 Presence of cardiac pacemaker; Z98.84 Bariatric surgery status; Z79.899 Other long term (current) drug therapy
CPT/HCPCS: 33208; 33225; 33286; 36415; 36556; 71045; 71250; 73564; 78452; 80048; 80053; 80202; 81001; 82435; 82607; 82728; 82803; 82947; 82948; 83521; 83605; 83735; 83880; 84132; 84295; 85018; 85025; 85027; 85610; 85730; 86334; 86850; 86900; 86901; 86923; 87086; 87186; 88305; 93005; 93017; 93306; 93356; 93619; 93650; 94640; 94664; 97161; A9500; C1760; C1769; C1776; C1894; C1898; C1900; C2621; G0378; J0330; J0690; J0692; J1100; J1171; J1644; J1650; J1885; J2003; J2250; J2371; J2405; J2704; J2785; J2795; J3010; J3373; J3475; J3490; J7030; P9016; P9045; Q9967; A4215; A4216; A4222; A4223; A4600; A4649; A4930; A6251; A9272; C1713; C1732; C1750; J0665; J3370; Q9965

== ENCOUNTER 2025-04-06 07:12 | Inpatient (IN) | payer MEDICARE ==
[2025-04-06] VITALS (50 sets, daily range): BP systolic 70–165; BP diastolic 43–95; PULSE 31–124; RESP 18–45; TEMP 97–98; O2SAT 90–100
[~2025-04-06] VITALS: Ht 177.8 cm; Wt 127.1 kg
--- NOTE | 2025-04-06 07:13 | NUR ---
PT PLACED IN ROOM
[2025-04-06 07:46] LABS: ABG BASE EXCESS -6.6 mmol/L (-2.0-3.0); ABG HCO3 18.1 mmol/L (21.0-28.0); ABG OXYGEN SATURATION 90.9 % (94.0-98.0); ABG PCO2 33 mmHg (32-45); ABG PH 7.364 (7.350-7.450); CARBON MONOXIDE 0.9 % (0.5-1.5); PO2, ARTERIAL BG 66.1 mmHg (83.0-108.0); TEMPERATURE, CELSIUS BG 37.0 CELSIUS (35.5-37.0); VENT MODE, BG NC (ROOM AIR)
--- NOTE | 2025-04-06 07:56 | NUR ---
PATIENT'S EARRINGS GIVEN TO DAUGHTER
[2025-04-06 08:08] LABS: IMMATURE GRANULOCYTE ABSOLUTE 0.05 K/uL (0-1); NUCLEATED RED BLOOD CELLS 0.0 % (0.0-0.19); PLATELET COUNT (AUTO) 183 K/uL (130-400); RED BLOOD CELL COUNT(AUTO) 2.11 MIL/uL (4.00-5.50); RED CELL DISTRIBUTION WIDTH 16.2 % (11.0-15.5); WHITE BLOOD COUNT (AUTO) 11.5 K/uL (4.8-10.8)
[2025-04-06 08:27] LABS: CREATININE 1.6 mg/dL (0.5-1.0); GLOMERULAR FILTR. RATE CALC 32.0 mL/min (>90); GLUCOSE,RANDOM 145.0 mg/dL (70-105); SODIUM SERUM 141.0 mmol/L (136-145); UREA NITROGEN, BLOOD 26.0 mg/dL (7-18)
[2025-04-06] MEDS: 0.9%NACL 1000ML 1,000 ML IV ONE (08:30)
--- NOTE | 2025-04-06 08:35 | NUR ---
PT PLACED ON BIPAP
[2025-04-06 08:37] LABS: APPEARANCE,URINE CLOUDY (CLEAR); GLUCOSE, URINE (UA) NEGATIVE (NEGATIVE); LEUKOCYTE ESTERASE ,URINE 500 Leu/uL (NEGATIVE); NITRATE,URINE NEGATIVE (NEGATIVE); OCCULT BLOOD,URINE LARGE (NEGATIVE)
[2025-04-06 08:38] LABS: ADD UA MICROSCOPIC YES
[2025-04-06 08:41] LABS: SQUAMOUS EPITHELIAL CELL,UR FEW /HPF (0-2); YEAST,URINE BUDDING MANY /HPF (None Seen)
--- NOTE | 2025-04-06 09:05 | HMCIMG ---
EXAM: CR Chest, 1 views. CLINICAL HISTORY: Cough. COMPARISON: Compared with the previous X-ray FINDINGS: The lungs show no infiltrate or other acute findings. Bilateral small-volume pleural effusion. Stable cardiomegaly is noted. A radio-opaque pacemaker is noted with adequately placed cardiac leads over the atrium and ventricle No acute osseous abnormality. IMPRESSION: Mild cardiomegaly with pulmonary vascular congestion. Bilateral small-volume pleural effusion. As compared with the previous X-rays of 28 March 2025, a new finding of mild pleural effusion appears /[place]
--- NOTE | 2025-04-06 09:06 | ERN ---
General Chief Complaint: Chest Pain Stated Complaint: FROM [facility] AND SOB Time Seen by MD: 07:18 Source: patient, family, EMS History of Present Illness Initial Comments Patient is a an 84-year-old female brought in by EMS from correction. Per correction patient has been complaining of shortness of breath and chest discomfort since last night. Allergies: Coded Allergies: codeine (Unverified Allergy, Unknown, HALLUCINATION, 03/16/25) Home Meds Active Scripts Hydrocodone/Acetaminophen (Hydrocodon-Acetaminophen 5-325) 5 Mg-325 Mg Tablet, 1-2 TAB PO Q8H PRN for ACUTE POST-OP PAIN (G89.18) for 7 Days, #42 TAB 0 Refills Prov:ALEKSANDR GARCIA MD 03/30/25 Dabigatran Etexilate Mesylate (Pradaxa) 75 Mg Cap, 1 CAP PO BID for 30 Days, #60 CAP 0 Refills Prov:BOYD NORIEGA MD 03/30/25 Reported Medications Hydrocodone/Acetaminophen (Hydrocodon-Acetaminophn 10-325) 10 Mg-325 Mg Tablet, 1 EACH PO BID PRN for PAIN LEVEL 4 TO 6, TAB 03/17/25 Metoprolol Tartrate (Metoprolol Tartrate) 25 Mg Tablet, 1 TAB PO TID for 30 Days, #60 TAB 0 Refills 03/17/25 Iron Fum & Ps Cmp/Vit C & B (Integra Capsule) 125 Mg-40 Mg-3 Mg Capsule, 1 CAP PO DAILY for 30 Days, #30 CAP 0 Refills 03/17/25 Aspirin (ASPIRIN 81MG CHEW TAB) 81 Mg Tab.chew, 1 TAB PO DAILY for 30 Days, #30 TAB 0 Refills 03/17/25 Dronedarone Hydrochloride (Multaq) 400 Mg Tablet, 1 TAB PO BID for 30 Days, #60 TAB 0 Refills 03/17/25 Omeprazole (Omeprazole) 40 Mg Capsule.dr, 1 CAP PO DAILY 02/18/24 Biotin/Lutein (Biotin Plus 5,000 Mcg Tablet) 5,000 Mcg-10 Mg Tablet, 1 EACH PO DAILY, TAB 02/18/24 [] No Conflict Check, 1 TAB PO DAILY 02/18/24 Furosemide (Furosemide) 40 Mg Tablet, 40 MG PO QMOWEFR, TAB 02/18/24 Melatonin/Pyridoxine HCl (B6) (Melatonin 10 mg Tablet) 10 Mg-10 Mg Tab.mphase, 1 EACH PO HS 02/17/24 Buspirone HCl (Buspirone HCl) 10 Mg Tablet, 10 MG PO HS, TAB 02/17/24 Cranberry Extract (Cranberry) 500 Mg Tablet, 500 MG PO HS, TAB 02/17/24 Venlafaxine HCl (Venlafaxine HCl ER) 75 Mg Cap.er.24h, 1 CAP PO HS 02/17/24 Sennosides (Senna) 8.6 Mg Tablet, 8.6 MG PO HS, TAB 03/22/23 Acetaminophen (Acetaminophen) 500 Mg Tablet, 500 MG PO BID PRN for PAIN LEVEL 1 TO 3, TAB 03/22/23 Baclofen (Baclofen) 20 Mg Tablet, 20 MG PO HS, TAB 03/22/23 Cyanocobalamin (Vitamin B-12) (Vitamin B-12) 1,000 Mcg Capsule, 1000 MCG PO DAILY, CAP 07/22/20 Past Medical History Past Medical History: A-Fib, Anxiety, COPD, Diabetes-Type II, DVT, Heart Disease, Renal Disese Medical History Other: ORTHOSTATIC HYPO Past Surgical History: Cholecystectomy Surgical History Other: ABLASION, BILAT KNEE REPLACEMENT Social History Social History: Lives with family ROS Dictation CONSTITUTIONAL: No chills, no fever, no weakness, no diaphoresis, no malaise. HEAD/FACE: No signs of trauma. EENT: No eye pain, no blurred vision, no tearing, no double vision, no ear pain, no ear discharge, no nose pain, no nasal congestion, no throat pain, no throat swelling, no mouth pain. RESPIRATORY: No cough, no orthopnea, SOB, stridor, no wheezing. CARDIOVASCULAR: No chest pain, no edema, no palpitations, no syncope. GASTROINTESTINAL/ABDOMINAL: No abdominal pain, no constipation, no diarrhea, no nausea, no vomiting. GENITOURINARY: No abnormal discharge, no dysuria, no frequent urination, no hematuria. No complaints of pain in the genitals. MUSCULOSKELETAL: No back pain, no gout, no joint pain, no joint swelling, no muscle pain, no muscle stiffness, no neck pain. INTEGUMENTARY: No change in color, no change in hair/nails, no dryness, no l esion, no lumps, no rash. NEUROLOGICAL/PSYCH: No anxiety, not depressed, no emotional problem, no headache, no numbness, no pre-existing deficit, no history of seizures, no tremors, no weakness. HEMATOLOGIC/LYMPHATIC: Not anemic, no history of blood clots, no apparent bleeding, no bruising, glands not swollen. All Systems Negative, Except as Noted. Physical Exam Physical Exam Dictation VITAL SIGNS: Reviewed. GENERAL APPEARANCE: Alert, oriented x3, no acute distress, obese. HEAD AND FACE: Non-traumatic. EYES: PERRL, pink conjunctivas, eyelid no trauma, anterior chamber clear. EARS: Pinnas intact and no signs of trauma or erythema. Ear canals clear and no discharge. TMs no erythema. NOSE: No discharge, no bleeding. OROPHARYNX: Mouth normal, teeth no caries, tongue pink. Pharynx clear, no erythema. Tonsils no exudates, no abscesses noted. Mucous membrane moist. NECK: Supple, non-tender, no thyromegaly, no masses, no JVD, no bruits. BREAST: Deferred. CHEST: No tenderness, no crepitus, no paradoxical movement, no retractions. LUNGS: Clear, well-ventilated, symmetric, no rales, no wheezing, rhonchi, stridor, decrease breath sounds bilaterally. HEART: Regular rate, regular rhythm, no murmur, no gallops. VASCULAR: No peripheral edema. ABDOMEN: Soft, positive bowel sounds, nondistended, no guarding, nontender, no rebound, no masses no hepatomegaly, no splenomegaly, no Doll's sign, no hernias. RECTAL: Deferred. GENITAL: Deferred. NEUROLOGICAL: Normal speech, gross motor function intact, gross sensory function intact. MUSCULOSKELETAL: Neck nontender, full range of motion, back nontender, full range of motion. EXTREMITIES: Nontender, full range of motion. SKIN: Color pink, dry, no turgor, no rash, no lacerations, no abrasions, no contusions. LYMPHATICS: Deferred. Results Laboratory and Microbiology Lab and Micro Result Laboratory Tests Test 04/06/25 07:45 04/06/25 08:02 04/06/25 08:18 Blood Gas Specimen Type Arterial Arterial Blood pH 7.364 (7.350-7.450) Arterial Blood Partial Pressure CO2 33 mmHg (32-45) Arterial Blood Partial Pressure O2 66.1 mmHg (83.0-108.0) L Arterial Blood HCO3 18.1 mmol/L (21.0-28.0) L Arterial Blood Oxygen Saturation 90.9 % (94.0-98.0) L Arterial Blood Base Excess -6.6 mmol/L (-2.0-3.0) L Hemoglobin (Blood Gas) 7.5 g/dL (12.0-16.0) L Sodium (Blood Gas) 140 MMOL/L (136-145) Bedside Potassium (Blood Gas) 4.6 MMOL/L (3.4-4.5) H Bedside Chloride (Blood Gas) 107 MMOL/L (98-107) Bedside Glucose (Blood Gas) 144 MG/DL (65-95) H Bedside Ionized Calcium (Blood Gas) 1.09 MMOL/L (1.15-1.33) L Bedside Lactic Acid (Blood Gas) 6.14 MMOL/L (0.36-0.75) *H Blood Gas Temperature 37.0 CELSIUS (35.5-37.0) Blood Gas Flow-by 3.00 L/min (0.00-15.00) Blood Gas Vent Mode NC (ROOM AIR) FiO2 32.0 % Blood Gas Specimen Comment DR.REYNA MARÍA ELENA White Blood Count 11.5 K/uL (4.8-10.8) H Red Blood Count 2.11 MIL/uL (4.00-5.50) L Hemoglobin 7.1 g/dL (12.0-16.0) L Hematocrit 23.4 % (36-48) L Mean Corpuscular Volume 110.9 fL (79-99) H Mean Corpuscular Hemoglobin 33.6 pg (27.0-33.0) H Mean Corpuscular Hemoglobin Concent 30.3 g/dL (32.0-36.0) L Red Cell Distribution Width 16.2 % (11.0-15.5) H Platelet Count 183 K/uL (130-400) Mean Platelet Volume 10.2 fL (7.5-10.5) Immature Granulocyte % (Auto) 0.4 % (0-1) Neutrophils (%) (Auto) 92.6 % (40.0-77.0) H Lymphocytes (%) (Auto) 4.7 % (21.0-51.0) L Monocytes (%) (Auto) 2.1 % (3.0-13.0) L Eosinophils (%) (Auto) 0.0 % (0.0-8.0) Basophils (%) (Auto) 0.2 % (0.0-5.0) Neutrophils # (Auto) 10.7 K/uL (1.8-7.7) H Lymphocytes # (Auto) 0.5 K/uL (1.0-4.8) L Monocytes # (Auto) 0.2 K/uL (0.1-1.0) Eosinophils # (Auto) 0.00 K/uL (0.00-0.70) Basophils # (Auto) 0.02 K/uL (0.00-0.20) Absolute Immature Granulocyte (auto 0.05 K/uL (0-1) Nucleated Red Blood Cells 0.0 % (0.0-0.19) White Cell Morphology Comment See comments Red Blood Cell Morphology See comments Sodium Level 141 mmol/L (136-145) Potassium Level 4.6 mmol/L (3.5-5.1) Chloride Level 103 mmol/L (101-111) Carbon Dioxide Level 21 mmol/L (21-32) Blood Urea Nitrogen 26 mg/dL (7-18) H Creatinine 1.6 mg/dL (0.5-1.0) H Glomerular Filtration Rate Calc 32 mL/min (>90) Random Glucose 145 mg/dL (70-105) H Total Calcium 8.2 mg/dL (8.5-10.1) L Troponin I High Sensitivity 24 ng/L (4-50) B-Type Natriuretic Peptide 284 pg/mL (0-100) H Urine Color YELLOW (YELLOW) Urine Appearance CLOUDY (CLEAR) H Urine pH 5.0 (5.0-8.0) Urine Specific [place] 1.021 (1.001-1.031) Urine Protein 20 mg/dL (NEGATIVE) H Urine Glucose (UA) NEGATIVE mg/dL (NEGATIVE) Urine Ketones NEGATIVE mg/dL (NEGATIVE) Urine Occult Blood LARGE (NEGATIVE) H Urine Nitrate NEGATIVE (NEGATIVE) Urine Bilirubin NEGATIVE mg/dL (NEGATIVE) Urine Urobilinogen 2.0 mg/dL (0.2-1.0) H Urine Leukocyte Esterase 500 Nicole/uL (NEGATIVE) H Urine RBC TNTC /HPF (0-1) H Urine WBC 51-100 /HPF (0-1) H Urine Squamous Epithelial Cells FEW /HPF (0-2) Urine Bacteria FEW /HPF (None Seen) Urine Hyaline Casts 11-25 /LPF (0-1 /LPF) H Urine Yeast MANY /HPF (None Seen) Labs Reviewed?: Yes EKG/XRAY/US/CT/MRI EKG Comment 04/06/2025 time 8:00 a.m. Ventricular rate [address] [place] [address] wave elevation or depression MDM MDM: Differential diagnosis: Respiratory distress, shortness of breath, pulmonary congestion, NSTEMI, CHF, history of COPD, endotracheal intubation Rationale: Tests considered and ordered secondary to shared decision making include: labs, ECG and radiology Previous outside records reviewed: Old ER visits. Risk of complication and/or morbidity or mortality of patient management: None Medications-Per medication reconciliation Need for hospitalization: Patient does meet criteria for hospitalization. Need for emergency major/minor surgery: No There are no social concerns with this patient. Prescription drug management Prescriptions will include symptomatic care Patient's prior external medical records from other ER visits were reviewed by me as indicated. Prior testing and results from previous visits were reviewed. Prior tests were taken into account with medical decision making and resource utilization, independent historian/historians were used to obtain complete medical history. I independently interpreted the test that were performed, results were reviewed by me and considered findings on radiology if ordered. Medical management and examination interpretation discussions were had by me with other qualified healthcare professionals as indicated for the patient's care. ED Course Orders Procedure Category Date Status Time Cbc With Differential LAB 04/06/25 Complete 07:18 Chest 1vw RAD 04/06/25 Resulted 07:18 12 Lead Ekg Tracing- EKG 04/06/25 Logged Technical 07:18 Troponin I High LAB 04/06/25 Complete Sensitivity 07:18 Urinalysis Profile LAB 04/06/25 Complete 07:18 Basic Metabolic Panel LAB 04/06/25 Complete 07:18 B-Type Natriuretic LAB 04/06/25 Complete Peptide 07:36 Arterial Blood Gas + RT 04/06/25 Transmitted 07:41 Arterial Blood Gas LAB 04/06/25 Complete Arterial + 07:45 Ceftriaxone 1g Vial PHA 04/06/25 Complete (Rocephine 1g Inj) 08:30 Azithromycin 500mg+Ns PHA 04/06/25 In Process 250ml (Azithromyci 09:00 Ipratropium/Albuterol PHA 04/06/25 Complete Neb (Duoneb) 08:30 Methylprednisolone PHA 04/06/25 Complete Succ 125mg (Solu-Medr 08:30 0.9%Nacl 1000ml (Ns PHA 04/06/25 Complete 1000ml) 08:30 Diazepam 5 Mg/Ml 2 Ml PHA 04/06/25 In Process Syg (Valium 5 Mg/M 09:00 Diazepam 5 Mg/Ml 2 Ml PHA 04/06/25 Complete Syg (Valium 5 Mg/M 08:35 Culture Urine MORGAN 04/06/25 In Process 08:38 Ketamine 50mg/Ml PHA 04/06/25 Complete Syringe (Ketamine 08:47 Norepinephrin 4mg/Ns PHA 04/06/25 Complete 250ml (Levophed 4mg 08:59 Chest 1vw RAD 04/06/25 Taken 08:59 Fentanyl 1000mcg+Ns PHA 04/06/25 In Process 100ml (Fentanyl 1000 09:30 Midazolam 100mg-0.9% PHA 04/06/25 In Process Ns 100ml (Midazolam 09:30 Current Medications Medications (Trade) Dose Ordered Sig/Asif Route PRN Reason Start Time Stop Time Status Last Admin Dose Admin Albuterol (DUOneb) 2 udvial ONCE ONCE IH 04/06/25 08:30 04/06/25 08:32 DC Azithromycin 250 ml @ 250 mls/hr ONCE IVPB 04/06/25 09:00 04/06/25 10:00 Ceftriaxone Sodium (ROCEphine 1G INJ) 1 gm ONCE ONCE IVPB 04/06/25 08:30 04/06/25 08:32 DC Diazepam (VALium 5 MG/ML 2 ML SYG) 5 mg Q4H PRN IV ANXIETY 04/06/25 09:00 04/13/25 08:59 Diazepam (VALium 5 MG/ML 2 ML SYG) 10 mg STK-MED ONCE .ROUTE 04/06/25 08:35 04/06/25 08:35 DC Fentanyl Citrate 100 ml @ 2.5 mls/hr PROTOCOL IV 04/06/25 09:30 04/13/25 09:29 Ketamine HCl (ketaMINE 50MG/ ML SYRINGE) 50 mg STK-MED ONCE .ROUTE 04/06/25 08:47 04/06/25 08:47 DC Methylprednisolone Sodium Succinate (Solu-medROL 125MG) 125 mg ONCE ONCE IVP 04/06/25 08:30 04/06/25 08:32 DC Midazolam HCl (Midazolam 100mg-0.9% NS 100ml) 100 ml ONCE ONCE IV 04/06/25 09:30 04/06/25 09:31 Norepinephrine 250 ml @ As Directed STK-MED ONCE IV 04/06/25 08:59 04/06/25 08:59 DC Sodium Chloride 1,000 ml @ 0 mls/hr ONCE ONCE IV 04/06/25 08:30 04/06/25 08:32 DC Vital Signs Date Time Temp Pulse Resp B/P (MAP) Pulse Ox O2 Delivery O2 Flow Rate FiO2 04/06/25 07:23 97.7 97 33 136/116 80 Nasal Cannula* 3 32 04/06/25 07:18 98.4 97 38 135/116 91 Nasal Cannula 3.0 Procedure Dictation The procedure was emergent, the patient was unable to provide consent, and a designee was not immediately available. PROCEDURE SUMMARY: A time out was performed. My hands were washed immediately prior to the procedure. I wore a surgical cap, mask with protective eyewear, gown and gloves throughout the procedure. The patient was placed on a color television console monitor including continuous pulse oximetry. Rapid Sequence Intubation was conducted. The patient received 100 mg of KETAMINE for induction and 50 mg of CHERIE for adequate paralysis. Cricoid pressure was maintained from time induction agent was given to time of cuff balloon inflation. Using a GLIDESCOPE and a size [7.5 ] endotracheal tube with stylet, the patient was intubated on the 1 attempt. The stylet was removed and cuff balloon was inflated. Appropriate endotracheal tube position was confirmed by direct visualization of vocal cord passage, fogging of the tube, CO2 colormetric indicator and symmetric breath sounds. The tube was secured at [26 ] cm at the lips. Post intubation chest x-ray is pending at this time. Critical Care Note Comments Critical Care Procedure Note Authorized and Performed by: Total critical care time: Approximately 36 minutes Due to a high probability of clinically significant, life threatening deterioration, the patient required my highest level of preparedness to intervene emergently and I personally spent this critical care time directly and personally managing the patient. This critical care time included obtaining a history; examining the patient; pulse oximetry; ordering and review of studies; arranging urgent treatment with development of a management plan; evaluation of patient's response to treatment; frequent reassessment; and, discussions with other providers. This critical care time was performed to assess and manage the high probability of imminent, life-threatening deterioration that could result in multi-organ failure. It was exclusive of separately billable procedures and treating other patients and teaching time. Please see MDM section and the rest of the note for further information on patient assessment and treatment. DX & DISP Disposition: Inpatient Decision to Admit Time: 09:20 Departure Impression: Primary Impression: Sepsis Additional Impressions: Endotracheally intubated, UTI (urinary tract infection), Respiratory distress Condition: Stable Referrals: MEG DANIELS MD (PCP) ZINA CARL MD Apr 06, 2025 09:06
[2025-04-06] MEDS: MIDAZOLAM 100MG-0.9% NS 100ML 100ML BAG IV ONE (09:31)
[2025-04-06] MEDS ORDERED: VANCOMYCIN PROTOCOL PER PHARMACY IV SCH (10:00)
[2025-04-06] MEDS: NOREPINEPHRIN 4MG/NS 250ML 250 ML IV ONE (10:29)
--- NOTE | 2025-04-06 10:31 | HMCIMG ---
EXAM: Chest, 2 views. CLINICAL HISTORY: Post intubation. COMPARISON: Compared with the previous X-ray FINDINGS: The lungs show no infiltrate or other acute findings. Bilateral small-volume pleural effusion. Stable cardiomegaly is noted. A radio-opaque pacemaker is noted with adequately placed cardiac leads over the atrium and ventricle. The tip of the endotracheal tube is seen 6mm above the juanito- needs repositioning. No acute osseous abnormality. IMPRESSION: The tip of the endotracheal tube is seen 6 mm above the juanito- needs repositioning. Mild cardiomegaly with pulmonary vascular congestion. Bilateral small-volume pleural effusion. Stable radiograph findings as compared to the previous X-ray done today. /[place]
[2025-04-06 10:37] LABS: ABG BASE EXCESS -8.6 mmol/L (-2.0-3.0); ABG HCO3 16.2 mmol/L (21.0-28.0); ABG OXYGEN SATURATION 99.8 % (94.0-98.0); ABG PCO2 32 mmHg (32-45); ABG PH 7.324 (7.350-7.450); PO2, ARTERIAL BG 369.0 mmHg (83.0-108.0); TEMPERATURE, CELSIUS BG 37.0 CELSIUS (35.5-37.0); VENT MODE, BG AC (ROOM AIR)
[2025-04-06] MEDS: AZITHROMYCIN 500MG+NS 250ML 250 ML IVPB SCH (10:45)
[2025-04-06] MEDS: 0.9%NACL 1000ML 1,000 ML IV SCH ×2 (10:51→11:30)
[2025-04-06] MEDS: NOREPINEPHRIN 4MG/NS 250ML 250 ML IV SCH (11:05)
--- NOTE | 2025-04-06 11:11 | NUR ---
RAD V/Q: @ 1040HRS PER YESI WILSON, PT IS ON A VENT. Exam was explained to YESI Wilson Ventilation can not be performed for this exam due to the Vent. A mask needs to be placed over the nose and mouth for pt to inhale the xenon gas and hold as long as they can for this exam. Exam on hold until further notice. DG
--- NOTE | 2025-04-06 11:43 | NUR ---
ER NURSE WILL CALL BEFORE BRINGING PATIENT TO CT DEPT FOR EXAM.
--- NOTE | 2025-04-06 12:02 | NUR ---
PT INTUBED AT 0855. INTUBATION TUBE IS 7.5 INCHES. 25 AT THE LIP. VENT SETTINGS: PIP: 23.4 TIDAL VOL: 446 SPONT RATE: 0.0 MAP: 11.1 SPONT VE: 0.00 TOTAL RATE: 25 PE END: 4.7 TOTAL VE: 11.3 F/VT: PI END: 23.2 %02: I:E RATIO: 1:1.8
--- NOTE | 2025-04-06 13:01 | NUR ---
REPORT GIVEN TO NURSE PLASENCIA. PT WILL BE GOING TO 208.
--- NOTE | 2025-04-06 13:01 | NUR ---
CT CHEST PE EXAM ON HOLD UNTIL FURTHER NOTICE: PATIENT UNSTABLE.
--- NOTE | 2025-04-06 13:45 | NUR ---
Received the patient from the ER running 1 PRBC, maxed on Levophed, and red-tinged secretions in the nasogastric tube. Ron GONG notified.
[2025-04-06] MEDS: MEROPENEM 1GM 1 GM VIAL IVPB SCH (14:29)
[2025-04-06] MEDS: VANCOMYCIN 1G/250ML KIT 250 ML IV ONE (14:30)
--- NOTE | 2025-04-06 14:42 | EKG ---
[facility] Test Date: 2025-04-06 Test Time: 08:00:41 Pat Name: LORE OCONNELL Department: [facility] Room: 208 1 Gender: F Resourcing Advisor: [id number] : 1940 Requested By: ZINA CARL Order Number: [id number] Reading MD: Birgit Nix Measurements Intervals [place] Rate: 101 P: 0 NH: 128 QRS: 163 QRSD: 107 T: -24 QT: 414 QTc: 539 Interpretive Statements Ventricular-paced rhythm Compared to ECG 03/27/2025 05:07:04 Atrial fibrillation no longer present Left-axis deviation no longer present Myocardial infarct finding no longer present Electronically Signed On 04-07-2025 09:26:28 [employer] by Birgit Nix Please click the below link to view image of tracing.
--- NOTE | 2025-04-06 14:59 | CONS ---
[facility] CONSULTATION NOTE Date Patient Seen: Apr 06, 2025 Time of Visit: 14:32 Supervising Physician: Dr Kristopher Ruggiero Reason for Consultation: ICU medical management Primary Care Physician: [ ] Outpatient Specialists: [ ] Inpatient Consults: [ ] PROBLEM LIST: Acute hypoxic respiratory failure Severe sepsis with shock Acute complicated cystitis Severe anemia Acute on chronic kidney disease Atrial fibrillation on chronic anticoagulation therapy Dilated cardiomyopathy ejection fraction 35-40% with moderate pulmonary hypotension Remote CVA HPI: Patient is an 84-year-old female presenting [facility] for shortness of breath and chest pain. Patient is presenting information is limited. During her presentation patient became hypoxic and ultimately intubated in the emergency department. She is hypotensive and was started on pressors. Patient was found to be septic, lactic acid greater than 6, possible urine source, she was started on antibiotics and 1 L of fluid was given. Patient with a history of cardiomyopathy with a reduced ejection fraction of 35%. Fluids were limited for this reason. Cultures have been obtained. She is getting Levophed through a midline which will be changed to a PICC line. Pending family discussion for additional details and to discuss code status. Additional medical history to include atrial fibrillation on brick paving checker farhan anticoagulation therapy. A remote CVA which is reported to be secondary to embolic event secondary to her AFib. Echocardiogram revealed moderate pulmonary hypertension. Patient's hemoglobin dropped from 7.16.3 and she is receiving 1 unit of PRBCs and we are pending coags. Critical Care consulted for ICU medical management PAST MEDICAL HX: see above PAST SURGICAL HX: noncontributory SOCIAL HISTORY: No tobacco, ETOH, or illicit drug use Coded Allergies: codeine (Unverified Allergy, Unknown, HALLUCINATION, 03/16/25) REVIEW OF SYSTEMS: 12 point ROS reviewed with patient. Pertinent positives mentioned above. Otherwise negative. PHYSICAL EXAM: GENERAL: 84-year-old female who is intubated and sedated HEENT: ET tube, EOMI, Sclera non icteric, moist mucosa NECK: Supple, no JVD, trachea midline LUNGS: Clear breath sounds bilaterally. No wheezes HEART: Irregular rate. Normal S1 and S2, without murmurs ABD: Abdomen soft, nontender. Bowel sounds present EXT: No clubbing cyanosis or edema NEURO: Patient is sedated Vital Signs (last 8hr) Date Time Temp Pulse Resp B/P (MAP) Pulse Ox O2 Delivery O2 Flow Rate FiO2 04/06/25 14:06 95 50 04/06/25 12:13 129/79 04/06/25 11:53 95 50 04/06/25 11:31 92 22 100/50 96 Ventilator+ 50 04/06/25 11:05 91/44 04/06/25 10:38 50 04/06/25 10:34 96 20 04/06/25 09:52 98 100 04/06/25 08:35 110 45 40 04/06/25 07:50 97.7 97 33 106/27 90 Nasal Cannula* 3 32 04/06/25 07:23 97.7 97 33 136/116 80 Nasal Cannula* 3 32 04/06/25 07:18 98.4 97 38 135/116 91 Nasal Cannula 3.0 LABS: Hematology Labs: Test 04/06/25 09:41 04/06/25 08:02 Range/Units Hemoglobin 6.3 *L 12.0-16.0 g/dL Hematocrit 20.8 *L 36-48 % White Blood Count 11.5 H 4.8-10.8 K/uL Red Blood Count 2.11 L 4.00-5.50 MIL/uL Mean Corpuscular Volume 110.9 H 79-99 fL Mean Corpuscular Hemoglobin 33.6 H 27.0-33.0 pg Mean Corpuscular Hemoglobin Concent 30.3 L 32.0-36.0 g/dL Red Cell Distribution Width 16.2 H 11.0-15.5 % Platelet Count 183 130-400 K/uL Mean Platelet Volume 10.2 7.5-10.5 fL Immature Granulocyte % (Auto) 0.4 0-1 % Neutrophils (%) (Auto) 92.6 H 40.0-77.0 % Lymphocytes (%) (Auto) 4.7 L 21.0-51.0 % Monocytes (%) (Auto) 2.1 L 3.0-13.0 % Eosinophils (%) (Auto) 0.0 0.0-8.0 % Basophils (%) (Auto) 0.2 0.0-5.0 % Neutrophils # (Auto) 10.7 H 1.8-7.7 K/uL Lymphocytes # (Auto) 0.5 L 1.0-4.8 K/uL Monocytes # (Auto) 0.2 0.1-1.0 K/uL Eosinophils # (Auto) 0.00 0.00-0.70 K/uL Basophils # (Auto) 0.02 0.00-0.20 K/uL Absolute Immature Granulocyte (auto 0.05 0-1 K/uL Nucleated Red Blood Cells 0.0 0.0-0.19 % White Cell Morphology Comment See comments Red Blood Cell Morphology See comments Chemistry Labs: Test 04/06/25 08:02 Range/Units Sodium Level 141 136-145 mmol/L Potassium Level 4.6 3.5-5.1 mmol/L Chloride Level 103 101-111 mmol/L Carbon Dioxide Level 21 21-32 mmol/L Blood Urea Nitrogen 26 H 7-18 mg/dL Creatinine 1.6 H 0.5-1.0 mg/dL Glomerular Filtration Rate Calc 32 >90 mL/min Random Glucose 145 H 70-105 mg/dL Total Calcium 8.2 L 8.5-10.1 mg/dL Troponin I High Sensitivity 24 4-50 ng/L B-Type Natriuretic Peptide 284 H 0-100 pg/mL DIAGNOSTICS / RADIOLOGY RESULTS: [ ] PLAN Pending additional history, medication for reconciliation Pending discussion with family with regards to code status We will exchange midline for PICC and continue to wean pressors We are pending a repeat ABG, Chest tube will be pulled back 1.5 cm, with repeat chest x-ray Antibiotics, follow cultures Echocardiogram CT head when able We will complete sepsis protocol, however fluids for restricted secondary to heart failure NEURO: Minimize central acting medications as possible. Fall Precautions. Well lighted room through the day and minimize interruptions through the night to prevent acute delirium. PULMONARY: Supplemental 02 as needed Titrate Fio2 to keep Spo2 > or = 90% DuoNebs and CPT as needed IS hourly while awake for pulmonary hygiene Out of bed to chair as tolerated VAP Bundle Vent/BIPAP Settings: [ ] Driving pressure: [ ] P Plat: [ ] Static C: [ ] Static R: [ ] P/F Ratio: [ ] CARDIOVASCULAR: Follow hemodynamics. Titrate vasopressor to keep MAP >65 or systolic blood pressure >95mmHg DIPS: [ ] LINES: [ ] GI & NUTRITION: Continue nutritional support Aspirations precautions Prokinetic agents and laxatives as needed KIDNEYS & ELECTROLYTES: Strict monitoring of intake and output Daily weights Avoid nephrotoxic agents Monitor electrolytes and replace as needed Goal urine output of 30mL/hr or 0.5mL/kg/hr Urine output: [ ] Fluid Balance: [ ] ENDOCRINE: Maintain blood glucose between 100-180 at all times. Insulin sliding scale for blood glucose management INFECTIOUS DISEASE: Trend temperature. Pittman-culture if febrile. Micro: [ ] Antibiotics: [ ] HEMATOLOGY & COAGULATION: Monitor H&H. Keep Hgb > 7 Transfuse 1 unit of PRBC for Hgb < 7 Transfuse 1 pack of platelets of platelets < 20, 000 Watch for any signs and symptoms of bleeding SKIN: Pressure ulcer prevention per facility protocol Rehab: PT/OT Prophylaxis: GI: [ ] DVT: [ ] Code Status: Full Resuscitation Disposition: [ ] Other: Total patient care time exceeds 35 minutes excluding all procedures. Case was discussed and seen with my supervising physician. The above plan was formulated and agreed upon. BOYD GUERRA PAC Apr 06, 2025 14:59
--- NOTE | 2025-04-06 15:06 | NUR ---
CT HEAD EXAM ON HOLD UNTIL FURTHER NOTICE: PER NURSE, PATIENT UNSTABLE.
[2025-04-06 15:49] LABS: INR 2.0 (0.85-1.15)
[2025-04-06 16:06] LABS: CREATININE 1.8 mg/dL (0.5-1.0); GLOMERULAR FILTR. RATE CALC 28.0 mL/min (>90); SODIUM SERUM 139.0 mmol/L (136-145); TOTAL PROTEIN, SERUM 4.9 g/dL (6.0-8.3); UREA NITROGEN, BLOOD 27.0 mg/dL (7-18)
[2025-04-06 16:22] LABS: ASPARTATE AMINOTRANSFERASE 844.0 U/L (10-37); GLUCOSE,RANDOM 35.0 mg/dL (70-105)
[2025-04-06] MEDS: DEXTROSE 50%-WATER 50 ML DISP.SYRIN IV ONE (16:24)
--- NOTE | 2025-04-06 16:25 | NUR ---
Patient's glucose at 35 at this time. Initiated the hypoglycemia protocol and administered D50. I informed Ron GONG regarding the situation. No further orders initiated.
[2025-04-06] MEDS ORDERED: LACTATED RINGERS 1000ML IV SCH (16:30)
[2025-04-06] MEDS ORDERED: GLUCAGON 1MG KIT 1 MG ML IM PRN (16:30)
[2025-04-06] MEDS: DEXTROSE 50%-WATER 50 ML DISP.SYRIN IV PRN (16:54)
--- NOTE | 2025-04-06 16:57 | NUR ---
Blood sugar at 45 at this time. Administered an amp of D50.
--- NOTE | 2025-04-06 17:35 | NUR ---
Blood sugar 62 at this time. Administered another amp of D50.
[2025-04-06] MEDS: SODIUM BICARB 50MEQ 50ML VIAL IV ONE ×2 (17:57→23:13)
--- NOTE | 2025-04-06 18:50 | HMCIMG ---
EXAM: CR Chest, 1 View. CLINICAL HISTORY: PICC line insertion COMPARISON: 04/06 17:19 EST FINDINGS: LUNGS: There has been interval retraction of the newer tracheal tube cartilages L4 centimeters above the juanito. Shallow lung volumes. Mild pulmonary edema. PLEURAL SPACES: No evidence of pleural effusion or pneumothorax. MEDIASTINUM: Cardiomegaly. BONES: No aggressive appearing osseous lesion seen. MISCELLANEOUS: Overlying medical office scheduler limits evaluation lobular left hemithorax. IMPRESSION: 1. There has been interval retraction of the newer tracheal tube cartilages L4 centimeters above the juanito. 2. Overlying medical office scheduler limits evaluation lobular left hemithorax. 3. Cardiomegaly. 4. Shallow lung volumes. 5. Mild pulmonary edema. 6. Interval insertion of a right-sided PICC line with tip in the superior vena cava. /[place]
--- NOTE | 2025-04-06 19:57 | NUR ---
RN SPOKE TO KIM ZHU NP FOR BENCHMARK IN REGARD TO PATIENTS HYPOGLYCEMIC EPISODES, CT CHEST WITH CONTRAST, REVIEWED LABS, PATIENT CONDITION. PER KIM, NO CT OF CHEST WITH CONTRAST DUE TO TRENDING UP CREATINE AND CURRENT GFR/BNP. INSTEAD DO CT OF THE CHEST WITHOUT CONTRAST AND PUT ORDER FOR VQ SCAN IN THE MORNING. ALSO, START D10 @75ML/HR. RN TO MAINTAIN BS HIGH 200'S. RN TO CHECK BS Q1 UNTIL SUGARS ARE CONSISTENTLY HIGH THEN CHECK BS Q2-3HRS.
--- NOTE | 2025-04-06 20:15 | NUR ---
PER RN, CT PE WILL REMAIN PENDING, DUE TO LABS, PRIOR NOTES NOTED BY RN WITH KIM ZHU INTRUCTIONS, CT HEAD W/O AND CT CHEST W/O TO BE DONE AT AROUND 21:20. COORDINATING WITH RESPIRATORY
--- NOTE | 2025-04-06 20:23 | NUR ---
RAD V/Q PER YESI MOTA PT IS ON A VENTILATOR. EXAM CAN NOT BE PERFORMED ON THE VENTILATOR. EXAM ON HOLD UNTIL FURTHER NOTICE.AGUSTÍN
[2025-04-06] MEDS: DEXTROSE 10%-WATER 1,000 ML IV SCH (20:29)
--- NOTE | 2025-04-06 20:54 | NUR ---
LACTIC ACID CRITICAL REPORTED. NEW ORDERS FOR 500ML BOLUS OF NS. DISCUSSED LAST ABGS. ALSO THAT UNABLE TO OBTAIN A BLOOD PRESSURE Addendum: 04/06/25 at 2057 by SVETLANA ARDON RN ADD TO NOTE. RN REPORTED TO KIM ZHU TRANSITION LEAD
--- NOTE | 2025-04-06 20:57 | NUR ---
NOTIFIED KIM ZHU NP OF VQ SCAN RESTRICTION REQUIRING PATIENT TO BE OFF VENTILATOR/BIPAP, LAY FLAT, AND FOLLOW COMMANDS. ALL IN WHICH PATIENT CAN NOT AT THIS TIME.
[2025-04-06] MEDS ORDERED: PHARMACY COMMUNICATION MISC SCH (21:00)
[2025-04-06] MEDS: 0.9% NACL 500ML IV.SOLN 500 ML IV SCH (21:19)
--- NOTE | 2025-04-06 21:29 | NUR ---
EXAM PENDING UNTIL FURTHER NOTICE. PER RN, PT UNSTABLE. RN WILL CALL BACK ONCE PT IS STABLE AND ABLE TO HAVE CT SCAN.
--- NOTE | 2025-04-06 21:32 | NUR ---
KIM ZHU NP ORDERED VASO AND ABG W ELCTROLYTES. ALSO REQUESTED LEVO TO BE 32MG/250ML INSTEAD OF 4MG/250MLBAG. ORDER FOR A-LINE
[2025-04-06] MEDS: VASOpressin 20 UNITS/ML 1ML Vi 40 UNITS in 0.9%NACL 50ML 40 ML IV SCH (21:48)
[2025-04-06] MEDS: NOREPINEPHRINE BITARTRATE 32 MG in 0.9% NACL 250ML 250 ML IV STA (21:50)
--- NOTE | 2025-04-06 22:00 | NUR ---
PER BI TRI OPERATOR, PATIENT UNSTABLE NOW. TAKE PATIENT TO CT ONCE PATIENT STABILIZES
[2025-04-06 22:36] LABS: ABG BASE EXCESS -18.0 mmol/L (-2.0-3.0); ABG HCO3 8.4 mmol/L (21.0-28.0); ABG OXYGEN SATURATION 98.2 % (94.0-98.0); ABG PCO2 22 mmHg (32-45); ABG PH 7.197 (7.350-7.450); CARBON MONOXIDE 0.6 % (0.5-1.5); PO2, ARTERIAL BG 158.1 mmHg (83.0-108.0); TEMPERATURE, CELSIUS BG 37.0 CELSIUS (35.5-37.0); VENT MODE, BG VC AC (ROOM AIR)
--- NOTE | 2025-04-06 22:57 | NUR ---
RN REPORTED ABG RESULTS TO KIM ZHU NP. PER RETORT OPERATOR, SHE WILL PUT ORDERS IN
[2025-04-06] MEDS: ALBUMIN (HUMAN) 25% 50 ML IV ONE (23:13)
[2025-04-06] MEDS: CALCIUM GLUC 1GM/10ML VIAL IV ONE (23:14)
[2025-04-07] VITALS (104 sets, daily range): BP systolic 88–173; BP diastolic 50–80; PULSE 90–112; RESP 14–40; TEMP 97.2–99.5; O2SAT 95–100
--- NOTE | 2025-04-07 00:05 | NUR ---
RN REPORTED TO PARVEEN SAPP NP OF CRITICAL LABS OF HGB 6.6 HCT 19.1 AND LACTIC ACID 15.1. NEW ORDERS GIVEN AND PLACED BY ENVIRONMENTAL HEALTH OFFICER. ORDER OF 2 UNITS OF PRBC'S TO BE GIVEN. FECAL OCCULT TEST, D/C LOVENOX, ADD PROTONIX, START BICARB DRIP AT 50ML/HR AND D/C D10 WHEN BICARB DRIP STARTED
[2025-04-07 00:25] LABS: RAPID GROUP A STREP negative (NEGATIVE)
[2025-04-07 00:31] LABS: SARS-CoV-2, RNA, NAAT NEGATIVE SARS CoV-2 (NEGATIVE)
[2025-04-07 00:35] LABS: INFLUENZA TYPE A Negative For Type A (NEGATIVE); INFLUENZA TYPE B Negative For Type B (NEGATIVE)
[2025-04-07] MEDS: SODIUM BICARB 8.4% 50ML SYRING 150 MEQ in DEXTROSE 5%-WATER 850 ML IVP SCH (01:02)
[2025-04-07 05:26] LABS: IMMATURE GRANULOCYTE ABSOLUTE 0.21 K/uL (0-1); NUCLEATED RED BLOOD CELLS 0.1 % (0.0-0.19); PLATELET COUNT (AUTO) 135 K/uL (130-400); RED BLOOD CELL COUNT(AUTO) 2.29 MIL/uL (4.00-5.50); RED CELL DISTRIBUTION WIDTH 19.4 % (11.0-15.5); WHITE BLOOD COUNT (AUTO) 23.3 K/uL (4.8-10.8)
[2025-04-07 05:50] LABS: CREATININE 2.1 mg/dL (0.5-1.0); GLOMERULAR FILTR. RATE CALC 23.0 mL/min (>90); GLUCOSE,RANDOM 168.0 mg/dL (70-105); SODIUM SERUM 140.0 mmol/L (136-145); TOTAL PROTEIN, SERUM 4.5 g/dL (6.0-8.3); UREA NITROGEN, BLOOD 31.0 mg/dL (7-18)
[2025-04-07] MEDS ORDERED: ENOXAPARIN SODIUM 30 MG/0.3 ML SQ SCH (08:00)
--- NOTE | 2025-04-07 08:02 | HMCIMG ---
EXAM: CR Chest, 1 View. CLINICAL HISTORY: pp COMPARISON: 04/06 17:19 EST FINDINGS: LUNGS: There has been advancement into atrial endotracheal tube by approximately 1.5 cm. Now it is 3.5 cm above the juanito. Bibasilar atelectasis. PLEURAL SPACES: No evidence of pleural effusion or pneumothorax. MEDIASTINUM: Cardiomegaly. BONES: No aggressive appearing osseous lesion seen. MISCELLANEOUS: Left hemithorax pacemaker. Tip of the right PICC line is in the superior vena cava. IMPRESSION: 1. There has been advancement into atrial endotracheal tube by approximately 1.5 cm. Now it is 3.5 cm above the juanito. 2. Bibasilar atelectasis. 3. Cardiomegaly. /[place]
[2025-04-07] MEDS: NOREPINEPHRINE BITARTRATE 32 MG in 0.9% NACL 250ML 250 ML IV SCH (08:21)
[2025-04-07 08:23] LABS: ABG BASE EXCESS -18.2 mmol/L (-2.0-3.0); ABG HCO3 9.1 mmol/L (21.0-28.0); ABG OXYGEN SATURATION 96.6 % (94.0-98.0); ABG PCO2 27 mmHg (32-45); ABG PH 7.147 (7.350-7.450); CARBON MONOXIDE 0.6 % (0.5-1.5); DEVICE COMMENT RN ROSIE; PO2, ARTERIAL BG 108.7 mmHg (83.0-108.0); TEMPERATURE, CELSIUS BG 37.0 CELSIUS (35.5-37.0); VENT MODE, BG AC (ROOM AIR)
[2025-04-07] MEDS: VANCOMYCIN 750MG VIAL IVPB SCH (08:23)
[2025-04-07] MEDS: SODIUM BICARB 50MEQ 50ML VIAL 50 ML ONE ×2 (08:30→09:04)
[2025-04-07] MEDS: SODIUM BICARB 50MEQ 50ML VIAL IV ONE ×5 (08:56→20:57)
--- NOTE | 2025-04-07 09:36 | PN ---
[facility] PROGRESS NOTE Date Patient Seen: Apr 07, 2025 Time of Visit: 09:20 Supervising Physician: Dr Karan Oneill Primary Care Physician: [ ] Outpatient Specialists: [ ] Inpatient Consults: [ ] PROBLEM LIST: Acute hypoxic respiratory failure Severe sepsis with shock Severe metabolic acidosis Hospital-acquired pneumonia Acute complicated cystitis Severe anemia, requiring transfusion Acute on chronic kidney disease Atrial fibrillation on chronic anticoagulation therapy Dilated cardiomyopathy ejection fraction 35-40% with moderate pulmonary hypotension Remote CVA INTERVAL HISTORY: Patient was seen and examined, patient worsening overnight. She remains intubated, sedated. FiO2 40/5, maxed on levo and vaso, running a bicarb drip with D5 for her sugars. Patient is severely acidotic, bicarb drip, her pH was 7.14, base excess -18, bicarb replaced. Pending a.m. chest x-ray, Worsening TAY, and increasing patient's LFTs. Hemoglobin is 6.7 on repeat, she received a total of 3 units overnight. We are pending repeat this morning Repeat lactic greater than 18 Plan: Patient critically ill, we will continue to [place] her bicarb levels, Continue adjustments to vent, Unfortunately advancing on pressors, we have added Solu-Medrol 60 q.6 Cultures are pending She is on Merrem and vancomycin Pending chest x-ray Pending CT of the head when able Correcting electrolytes Pending family discussion, discussion of code status Total critical care time spent 105 minutes, excludes any procedures or educational time REVIEW OF SYSTEMS: 12 point ROS reviewed with patient. Pertinent positives mentioned above. Otherwise negative. PHYSICAL EXAM: GENERAL: 84-year-old female who is intubated and sedated HEENT: ET tube, EOMI, Sclera non icteric, moist mucosa NECK: Supple, no JVD, trachea midline LUNGS: Clear breath sounds bilaterally. No wheezes HEART: Irregular rate. Normal S1 and S2, without murmurs ABD: Abdomen soft, nontender. Bowel sounds present EXT: No clubbing cyanosis or edema NEURO: Patient is sedated Vital Signs (last 8hr) Date Time Temp Pulse Resp B/P (MAP) Pulse Ox O2 Delivery O2 Flow Rate FiO2 04/07/25 08:33 91 40 04/07/25 06:45 91 20 105/60 (75) 98 04/07/25 06:30 91 25 88/53 (65) 100 04/07/25 06:16 91 40 04/07/25 06:15 91 21 92/55 (67) 100 04/07/25 06:00 91 18 93/55 (68) 99 04/07/25 06:00 91 40 04/07/25 06:00 40 04/07/25 05:45 91 20 100/56 (71) 88 04/07/25 05:30 91 19 96/54 (68) 100 04/07/25 05:15 97 20 112/59 (76) 89 04/07/25 05:00 112 18 103/57 (72) 100 04/07/25 04:45 91 21 108/67 (81) 99 04/07/25 04:33 124/71 04/07/25 04:30 91 23 112/71 (85) 99 04/07/25 04:15 91 20 123/71 (88) 100 04/07/25 04:00 40 04/07/25 04:00 91 18 122/70 (87) 100 04/07/25 04:00 100 Ventilator+ 60 50 ETT Piece+ 04/07/25 04:00 97.5 04/07/25 03:45 91 19 124/71 (88) 100 04/07/25 03:30 91 18 126/73 (90) 100 04/07/25 03:25 93 40 04/07/25 03:15 91 24 126/73 (90) 100 04/07/25 03:00 91 25 128/71 (90) 100 04/07/25 02:45 91 24 124/72 (89) 100 04/07/25 02:30 91 24 123/71 (88) 100 04/07/25 02:15 91 24 121/71 (88) 100 04/07/25 02:00 91 28 123/72 (89) 100 04/07/25 01:45 91 20 123/72 (89) 100 04/07/25 01:30 91 18 120/71 (87) 100 LABS: Hematology Labs: Test 04/07/25 05:07 04/06/25 08:02 Range/Units White Blood Count 23.3 #H 4.8-10.8 K/uL Red Blood Count 2.29 L 4.00-5.50 MIL/uL Hemoglobin 7.5 L 12.0-16.0 g/dL Hematocrit 22.9 L 36-48 % Mean Corpuscular Volume 100.0 H 79-99 fL Mean Corpuscular Hemoglobin 32.8 27.0-33.0 pg Mean Corpuscular Hemoglobin Concent 32.8 32.0-36.0 g/dL Red Cell Distribution Width 19.4 H 11.0-15.5 % Platelet Count 135 # 130-400 K/uL Mean Platelet Volume 11.4 H 7.5-10.5 fL Immature Granulocyte % (Auto) 0.9 0-1 % Neutrophils (%) (Auto) 91.8 H 40.0-77.0 % Lymphocytes (%) (Auto) 3.8 L 21.0-51.0 % Monocytes (%) (Auto) 3.4 3.0-13.0 % Eosinophils (%) (Auto) 0.0 0.0-8.0 % Basophils (%) (Auto) 0.1 0.0-5.0 % Neutrophils # (Auto) 21.3 H 1.8-7.7 K/uL Lymphocytes # (Auto) 0.9 L 1.0-4.8 K/uL Monocytes # (Auto) 0.8 0.1-1.0 K/uL Eosinophils # (Auto) 0.00 0.00-0.70 K/uL Basophils # (Auto) 0.03 0.00-0.20 K/uL Absolute Immature Granulocyte (auto 0.21 0-1 K/uL Nucleated Red Blood Cells 0.1 0.0-0.19 % White Cell Morphology Comment See comments Red Blood Cell Morphology See comments Chemistry Labs: Test 04/07/25 05:07 04/07/25 04:43 Range/Units Sodium Level 140 136-145 mmol/L Potassium Level 5.1 3.5-5.1 mmol/L Chloride Level 103 101-111 mmol/L Carbon Dioxide Level 11 L 21-32 mmol/L Blood Urea Nitrogen 31 H 7-18 mg/dL Creatinine 2.1 H 0.5-1.0 mg/dL Glomerular Filtration Rate Calc 23 >90 mL/min Random Glucose 168 #H 70-105 mg/dL Lactic Acid Level 14.4 H 0.8-2.5 mmol/L Total Calcium 7.0 L 8.5-10.1 mg/dL Magnesium Level 1.70 L 1.80-2.40 mg/dL Total Bilirubin 2.0 H 0.2-1.0 mg/dL Aspartate Amino Transf (AST/SGOT) 2487 *H 10-37 U/L Alanine Aminotransferase (ALT/SGPT) 930 #*H 12-78 U/L Alkaline Phosphatase 135 50-136 U/L Troponin I High Sensitivity 34 4-50 ng/L B-Type Natriuretic Peptide 679 H 0-100 pg/mL Total Protein 4.5 L 6.0-8.3 g/dL Albumin 2.0 L 3.5-5.0 g/dL Whole Blood Glucose 160 H 70-110 MG/DL Coagulation Labs: Test 04/06/25 15:33 Range/Units Prothrombin Time 19.8 H 9.6-11.6 SEC Prothromb Time International Ratio 2.00 H 0.85-1.15 Activated Partial Thromboplast Time 35.6 H 26.3-35.5 SEC DIAGNOSTICS / RADIOLOGY RESULTS: [ ] PLAN NEURO: Minimize central acting medications as possible. Fall Precautions. Well lighted room through the day and minimize interruptions through the night to prevent acute delirium. PULMONARY: Supplemental 02 as needed Titrate Fio2 to keep Spo2 > or = 90% DuoNebs and CPT as needed IS hourly while awake for pulmonary hygiene Out of bed to chair as tolerated VAP Bundle Vent/BIPAP Settings: [ ] Driving pressure: [ ] P Plat: [ ] Static C: [ ] Static R: [ ] P/F Ratio: [ ] CARDIOVASCULAR: Follow hemodynamics. Titrate vasopressor to keep MAP >65 or systolic blood pressure >95mmHg DIPS: [ ] LINES: [ ] GI & NUTRITION: Continue nutritional support Aspirations precautions Prokinetic agents and laxatives as needed KIDNEYS & ELECTROLYTES: Strict monitoring of intake and output Daily weights Avoid nephrotoxic agents Monitor electrolytes and replace as needed Goal urine output of 30mL/hr or 0.5mL/kg/hr Urine output: [ ] Fluid Balance: [ ] ENDOCRINE: Maintain blood glucose between 100-180 at all times. Insulin sliding scale for blood glucose management INFECTIOUS DISEASE: Trend temperature. Pittman-culture if febrile. Micro: [ ] Antibiotics: [ ] HEMATOLOGY & COAGULATION: Monitor H&H. Keep Hgb > 7 Transfuse 1 unit of PRBC for Hgb < 7 Transfuse 1 pack of platelets of platelets < 20, 000 Watch for any signs and symptoms of bleeding SKIN: Pressure ulcer prevention per facility protocol Rehab: PT/OT Prophylaxis: GI: [ ] DVT: [ ] Code Status: Full Resuscitation Disposition: [ ] Case was discussed and seen with my supervising physician. The above plan was formulated and agreed upon. BOYD GUERRA PAC Apr 07, 2025 09:36
[2025-04-07 10:20] LABS: INR 2.79 (0.85-1.15)
[2025-04-07 10:29] LABS: ABG BASE EXCESS -11.0 mmol/L (-2.0-3.0); ABG HCO3 13.7 mmol/L (21.0-28.0); ABG OXYGEN SATURATION 96.5 % (94.0-98.0); ABG PCO2 27 mmHg (32-45); ABG PH 7.326 (7.350-7.450); CARBON MONOXIDE 0.5 % (0.5-1.5); PO2, ARTERIAL BG 96.5 mmHg (83.0-108.0); TEMPERATURE, CELSIUS BG 37.0 CELSIUS (35.5-37.0); VENT MODE, BG AC (ROOM AIR)
--- NOTE | 2025-04-07 11:00 | NUR ---
NO FAMILY AT BEDSIDE WHEN ROUNDED. SPOKE TO PRIRY NURSE BRIEFLY. WILL HOLD INITAL ASSESSMENT UNITL PLAN OF CARE MORE DEFINED. PATIENT IS READMISSION, VENTED, PROGNOSIS GRIM.
[2025-04-07 12:30] LABS: ABG BASE EXCESS -12.4 mmol/L (-2.0-3.0); ABG HCO3 12.2 mmol/L (21.0-28.0); ABG OXYGEN SATURATION 96.8 % (94.0-98.0); ABG PCO2 24 mmHg (32-45); ABG PH 7.321 (7.350-7.450); CARBON MONOXIDE 0.1 % (0.5-1.5); PO2, ARTERIAL BG 102.6 mmHg (83.0-108.0); TEMPERATURE, CELSIUS BG 37.0 CELSIUS (35.5-37.0); VENT MODE, BG AC-VC (ROOM AIR)
--- NOTE | 2025-04-07 12:47 | HMCSR ---
APPROVED REPORT EXAM: Two-dimensional and M-mode echocardiogram with Doppler and color Doppler. INDICATION ICD: Elevated liver enzymes 2D Dimensions RVDd 5.0 cm LVEF(%) 54.9 (>50%) LA ESV INDEX (BP) 85.96 mL/m2 IVSd 0.8 (0.7-1.1cm) FS(%) 29 % LVDd 5.1 (3.8-5.6cm) LA (2D) 6.2 (1.6-4.0cm) PWd 1.2 (0.7-1.1cm) Ao Root(2D) 3.0 (2.0-3.7cm) IVSs 1.0 cm LVOT diam 2.2 (1.8-2.4cm) LVDs 3.6 (2.5-4.0cm) PWs 1.5 cm M-Mode Dimensions EPSS 0.9 cm LA (MM) 7.0 (1.6-4.0cm) Ao Root(MM) 3.4 (2.0-3.7cm) Aortic Valve AoV Vmax 1.7 m/s Ao Peak GR 11.9 mmHg LVOT Vmax 0.8 m/s AoV VTI 0.3 m Ao Mean GR 6.7 mmHg LVOT VTI 0.12 m VERONICA (VMAX) 1.64 cm2 Al P1/2T 575 ms VERONICA (VTI) 1.5 cm2 Mitral Valve MV E Vmax 81.2 cm/s DECEL Time 181 ms MV A Vmax 73.1 cm/s P 1/2 T 42 ms E/A ratio 1.1 MVA (PHT) 5.2 cm2 TDI E/E' Medial 14.3 E/E' Lateral 13.4 Medial E' Peak V 5.67 cm/s Lateral E' Peak V 6.04 cm/s Pulmonary Valve PV Vmax 1.2 m/s PI End Ximena. Jonel 142.2 cm/s PV Mean GR 2.7 mmHg PV Peak GR 5.6 mmHg Tricuspid Valve TR Vmax 2.6 m/s RAP (EST) 3 mmHg RVSP 30.0 mmHg TR Peak GR 27.0 mmHg Left Ventricle The left ventricle is normal size. There is global hypokinesis of the left ventricle. There is normal left ventricular wall thickness. LVEF is 30-35%. E/A flow is fused. Right Ventricle The right ventricle is severely dilated. Right ventricular systolic function is mildly reduced. Device lead is present in the right ventricle. Atria The left atrium is severely dilated. LASVI 86mL/m The interatrial septum is intact with no evidence for an atrial septal defect by color. Evidence of increased left atrial pressure with the atrial septum bowed to the right. The right atrium is severely dilated. Aortic Valve Aortic valve is trileaflet, mildly sclerotic and thickened but opens well. Mild aortic regurgitation is present. There is no aortic valvular stenosis. Mitral Valve The mitral valve is thickened. There is mild mitral valve regurgitation noted. There is no mitral valve stenosis. Tricuspid Valve The tricuspid valve is normal in structure. There is no tricuspid valve regurgitation noted. RVSP 30 mmHg Pulmonic Valve The pulmonary valve is normal in structure. There is trace of pulmonic valvular regurgitation. Great Vessels The aortic root is normal in size. The IVC is normal in size and collapses >50% with inspiration. Pericardium There is small pericardial effusion seen posteriorly. Other Information Quality : Adequate Rhythm : NSR Conclusion There is global hypokinesis of the left ventricle. LVEF is 30-35%. The right ventricle is severely dilated and hypokinetic. Device lead is present in the right ventricle. Left atrium is severely dilated. LASVI 86mL/m. No atrial septal defect by color. Evidence of increased left atrial pressure with the atrial septum bowed to the right. Mild aortic regurgitation. Thckened mitral valve leaflets. Mild mitral valve regurgitation. Small pericardial effusion seen posteriorly.
--- NOTE | 2025-04-07 12:57 | PN ---
SUBJECTIVE: The patient is on mechanical ventilator, does not follow commands or respond to commands at this time and the patient is on Vasopressor and Levophed for the hypertension. OBJECTIVE: VITAL SIGNS: Significant for blood pressure 123/63, pulse is 90, respirations around 22 and the patient is on FiO2 of . LUNGS: The patient has decreased breath sounds bilaterally, rhonchi in lung [place]. HEART: Regular rate and rhythm. ABDOMEN: Soft. EXTREMITIES: Trace edema. ASSESSMENT AND PLAN: * Respiratory failure, on mechanical ventilation, hypertension, hypertensive/septic shock. The patient is on pressors including Vasopressor and Levophed. The patient also has started on Solu-Medrol. * The patient has urinary tract infection and the patient's cultures are pending at this time. The patient is on broad-spectrum antibiotics. * Anemia with hemoglobin 7.5. * The patient has significant elevation of transaminases. * The patient's overall condition is guarded. Prognosis remains poor. TID: [id number] RECEIPT: [id number]
[2025-04-07] MEDS: SODIUM CL 4MEQ/ML 30ML 154 MEQ in DEXTROSE 10%-WATER 961.5 ML IV SCH (13:10)
[2025-04-07 15:21] LABS: ABG BASE EXCESS -14.5 mmol/L (-2.0-3.0); ABG HCO3 11.0 mmol/L (21.0-28.0); ABG OXYGEN SATURATION 96.8 % (94.0-98.0); ABG PCO2 25 mmHg (32-45); ABG PH 7.263 (7.350-7.450); CARBON MONOXIDE 0.2 % (0.5-1.5); DEVICE COMMENT RN ROSIE; PO2, ARTERIAL BG 107.9 mmHg (83.0-108.0); TEMPERATURE, CELSIUS BG 37.0 CELSIUS (35.5-37.0); VENT MODE, BG AC (ROOM AIR)
[2025-04-07] MEDS: MIDAZOLAM HCL 1 MG/ML 2ML VIAL IVP PRN (16:05)
--- NOTE | 2025-04-07 17:05 | HP ---
ADMITTING HISTORY AND PHYSICAL CHIEF COMPLAINT: Shortness of breath, breathing problems, hypoxia. HISTORY OF PRESENT ILLNESS: This is an 84-year-old female who was sent to the Emergency Room from the Skilled Care and the patient has shortness of breath and chest pain. The patient is intubated, hypoxic. The patient is also found to be septic with lactic acid greater than 6. The patient is treated assuming it is urine infection at this time. The culture is obtained before antibiotics are started and the patient is hypotensive, anemic requiring Levophed infusion and also blood transfusion. The patient is admitted to the ICU at this time. PAST MEDICAL HISTORY: Significant for history of urinary tract infections, anemia, history of acute on chronic kidney disease, atrial fibrillation, on anticoagulant therapy, dilated cardiomyopathy with ejection fraction of 35% on echocardiogram and stress test shows ejection fraction of 60%. History of remote CVA. PAST SURGICAL HISTORY: Significant for recent left knee replacement. MEDICATIONS: The patient takes multiple medications including hydrocodone, 75 mg two times a day, metoprolol 25 mg 3 times a day, iron supplementation, aspirin 81 mg, and Multaq 400 mg two times a day, omeprazole, pantroprazole sodium 40 mg, buspirone 10 mg, venlafaxine 75 mg, cyclobenzaprine. ALLERGIES: CODEINE. SOCIAL HISTORY: The patient at this time is a skilled care resident. REVIEW OF SYSTEMS: Could not be able to obtain, as the patient is intubated. PHYSICAL EXAMINATION: GENERAL: The patient is intubated. He does not follow commands at this time. VITAL SIGNS: Initial vitals are significant for the blood pressure is 91/44, pulse is 96, respirations 33. Subsequently with Levophed, blood pressure went up to 129/79, pulse is 95. HEENT: Pupil equal. Mucous membranes appears to be dry, pale. NECK: Neck is supple. LUNGS: The patient has decreased breath sounds bilaterally at the bases. HEART: Irregularly irregular, rate controlled. ABDOMEN: Abdomen is soft, nontender. EXTREMITIES: No edema noted. LABORATORY DATA: Significant for hemoglobin 6.3, WBC is 11.5. Sodium is 141. Creatinine is 1.6, calcium is 8.2, troponin is 24, BNP is 24. ASSESSMENT AND PLAN: 1. Acute hypoxic respiratory failure requiring mechanical ventilation, atrial fibrillation. The patient is on chronic anticoagulation. The patient can get CT chest to rule out any PE process. 2. Anemia. The patient is going to be transfused with 1 unit of packed RBCs. 3. Hypotension and septic shock. The patient initially got 1 liter of fluids and the patient is on Levophed and possible source of urinary tract infection. The patient is put on vancomycin and meropenem at this time. Cultures are drawn, results pending, and the patient is going to get cardiac enzymes also. The patient's overall condition is guarded. Conditions discussed with the family members at bedside. The patient's care will be transferred to Dr. Brown, covering for Dr. Jackson. TID: [id number] RECEIPT: [id number]
[2025-04-07 17:24] LABS: ABG BASE EXCESS -10.8 mmol/L (-2.0-3.0); ABG HCO3 13.9 mmol/L (21.0-28.0); ABG OXYGEN SATURATION 97.1 % (94.0-98.0); ABG PCO2 27 mmHg (32-45); ABG PH 7.333 (7.350-7.450); CARBON MONOXIDE 0.2 % (0.5-1.5); DEVICE COMMENT RN ROSIE; PO2, ARTERIAL BG 110.8 mmHg (83.0-108.0); TEMPERATURE, CELSIUS BG 37.0 CELSIUS (35.5-37.0); VENT MODE, BG AC (ROOM AIR)
[2025-04-07] MEDS ORDERED: CALCIUM GLUC 1GM/10ML VIAL IV ONE ×2 (18:35→20:00)
[2025-04-07] MEDS: CALCIUM GLUC 1GM 1 GM in 0.9%NACL 100ML 100 ML IV ONE ×2 (18:53→20:58)
[2025-04-07 19:41] LABS: ABG BASE EXCESS -8.6 mmol/L (-2.0-3.0); ABG HCO3 15.8 mmol/L (21.0-28.0); ABG OXYGEN SATURATION 96.9 % (94.0-98.0); ABG PCO2 29 mmHg (32-45); ABG PH 7.359 (7.350-7.450); CARBON MONOXIDE 0.2 % (0.5-1.5); PO2, ARTERIAL BG 107.2 mmHg (83.0-108.0); TEMPERATURE, CELSIUS BG 37.0 CELSIUS (35.5-37.0); VENT MODE, BG ACVC (ROOM AIR)
[2025-04-08] VITALS (103 sets, daily range): BP systolic 68–152; BP diastolic 49–85; PULSE 68–112; RESP 18–19; TEMP 96.5–99.7; O2SAT 93–100
[2025-04-08 00:26] LABS: ABG BASE EXCESS -8.3 mmol/L (-2.0-3.0); ABG HCO3 16.0 mmol/L (21.0-28.0); ABG OXYGEN SATURATION 96.7 % (94.0-98.0); ABG PCO2 28 mmHg (32-45); ABG PH 7.369 (7.350-7.450); CARBON MONOXIDE 0.6 % (0.5-1.5); PO2, ARTERIAL BG 98.3 mmHg (83.0-108.0); TEMPERATURE, CELSIUS BG 37.0 CELSIUS (35.5-37.0); VENT MODE, BG ACVC (ROOM AIR)
[2025-04-08 04:20] LABS: ABG BASE EXCESS -5.3 mmol/L (-2.0-3.0); ABG HCO3 18.3 mmol/L (21.0-28.0); ABG OXYGEN SATURATION 95.9 % (94.0-98.0); ABG PCO2 29 mmHg (32-45); ABG PH 7.422 (7.350-7.450); CARBON MONOXIDE 0.5 % (0.5-1.5); PO2, ARTERIAL BG 88.5 mmHg (83.0-108.0); TEMPERATURE, CELSIUS BG 37.0 CELSIUS (35.5-37.0); VENT MODE, BG ACVC (ROOM AIR)
[2025-04-08 04:25] LABS: IMMATURE GRANULOCYTE ABSOLUTE 0.36 K/uL (0-1); NUCLEATED RED BLOOD CELLS 1.7 % (0.0-0.19); PLATELET COUNT (AUTO) 117 K/uL (130-400); RED BLOOD CELL COUNT(AUTO) 2.57 MIL/uL (4.00-5.50); RED CELL DISTRIBUTION WIDTH 20.9 % (11.0-15.5); WHITE BLOOD COUNT (AUTO) 23.0 K/uL (4.8-10.8)
[2025-04-08 05:12] LABS: CREATININE 2.6 mg/dL (0.5-1.0); GLOMERULAR FILTR. RATE CALC 18.0 mL/min (>90); GLUCOSE,RANDOM 189.0 mg/dL (70-105); SODIUM SERUM 148.0 mmol/L (136-145); TOTAL PROTEIN, SERUM 4.0 g/dL (6.0-8.3); UREA NITROGEN, BLOOD 41.0 mg/dL (7-18)
[2025-04-08 05:22] LABS: ASPARTATE AMINOTRANSFERASE 1845.0 U/L (10-37)
[2025-04-08] MEDS ORDERED: PHARMACY COMMUNICATION MISC SCH ×2 (08:30→13:30)
[2025-04-08] MEDS ORDERED: 1/2 NS 1000ML 1,000 ML IV SCH (08:30)
[2025-04-08] MEDS: 1/2 NS IV SCH (09:19)
[2025-04-08] MEDS: MICAFUNGIN 100MG+NS 100ML 100 ML IV SCH (09:19)
[2025-04-08] MEDS: Solu-medROL 40MG VIAL IVP SCH (09:23)
[2025-04-08] MEDS ORDERED: COMPOUND IV MISC 1 EACH IVSOLN MISC PRN (09:30)
--- NOTE | 2025-04-08 11:50 | NUR ---
DCP: PENDING Pt currently intubated. Pt's and daughter /PATTIE Villarreal [phone] at bedside. Pt has been at [facility] for rehab for 1 week prior to admission. Prior to this, pt was at home, lives with , was inpt and able to do her self care reported daughter. Daughter not sure what dcp will be, she reports she was not happy with night care at [facility] Daughter wants to discuss dcp after extubation. CM to follow and assist as needed Addendum: 04/08/25 at 1155 by NICKY WINKLER Amended: Links added.
--- NOTE | 2025-04-08 11:57 | CONS ---
INFECTIOUS DISEASE CONSULTATION NOTE Date of Service: Apr 08, 2025 Reason for Consultation: [ ] Requesting Physician: [ ] HISTORY OF PRESENT ILLNESS: This is an 84-year-old female patient who is currently intubated and sedated therefore information obtained from patient's daughter who is visiting at bedside. Reported that patient was sent over from [facility] and rehab for evaluation of shortness of breath with low oxygen saturations, diaphoresis and chest pain. On examination patient has bilateral lower extremity edema. Per daughter patient had recently had a venous Doppler of the right lower extremity at the snf which was positive for DVT and was placed on Lovenox. We will obtain bilateral venous Doppler to confirm. Reported that patient was having diaphoresis but no fever or chills. Patient's current medical history include chronic kidney disease, chronic obst ructive pulmonary disease, diabetes mellitus, atrial fibrillation, CVA and recently treated urinary tract infection. Patient recently had a right total knee arthroplasty revision on 03/21/2025 secondary to a fall and dislocation of the femur. On admission to the hospital patient was found on renal failure, with elevated liver enzymes, had a WBC of 11.5, no fever but with an elevated lactic acid of 13.3. Hemoglobin was 6.3 for which she was transfused 2 units of PRBC. Today the WBC has trended up to 23.0, the lactic acid is18.4 and having low-grade fevers with current temperature of 99.5. Remains on renal failure with BUN of 41 and creatinine of 2.6 with elevated Liver enzymes AST of 1845 and ALT of 958. Patient has been started on vancomycin, Meropenem and micafungin. We will follow follow up on the culture and imaging results. REVIEW OF SYSTEMS Unable to obtain. PAST MEDICAL HISTORY: Recent UTI. Chronic kidney disease. Atrial fibrillation. CVA. Diabetes mellitus. PAST SURGICAL HISTORY: Right total knee arthroplasty revision on 03/21/2025. Pacemaker placement. Bariatric surgery. Cholecystectomy. PAST SOCIAL HISTORY: No current use of tobacco, alcohol or any other illicit drug. FAMILY HISTORY: Noncontributory. Coded Allergies: codeine (Unverified Allergy, Unknown, HALLUCINATION, 03/16/25) PHYSICAL EXAM EYES: Anicteric. Pupils equal and reactive. HENT: No oral thrush seen, moist Oral mucosa NECK: Supple, no JVD or thyromegaly. LUNGS: Mechanical ventilation. CARDIOVASCULAR: S1, S2 regular. No murmur heard. ABDOMEN: Soft, non tender, bowel sounds present, no organomegaly CENTRAL NERVOUS SYSTEM: Intubated and sedated. SKIN: No rashes, no swelling. LYMPHATICS: No peripheral lymphadenopathy MUSCULOSKELETAL: No joint swelling, erythema or tenderness. EXTREMITIES: No cyanosis or clubbing. Generalized edema. BACK: No deformity, no pressure ulcer. GENITOURINARY: No dysuria or hematuria, Mcdowell catheter. Vital Sign (Last 24 Hours) 04/08/25 04/08/25 04/08/25 04/08/25 06:45 08:00 11: 11:45 Temp 99.5 Pulse 93 Resp 19 B/P (MAP) 116/65 (82) Pulse Ox 100 O2 Delivery Ventilator+ ETT Piece+ O2 Flow Rate 40 FiO2 40 Intake & Output (last 24hrs) 04/07/25 04/07/25 04/08/25 15:00 23:00 07:00 Intake Total 1687.9 ml 1284.8 ml 962.0 ml Output Total 30 ml 300 ml Balance 1687.9 ml 1254.8 ml 662.0 ml LABS: Laboratory: Test 04/08/25 04:19 04/08/25 04:09 04/07/25 16:45 04/07/25 10:02 Range/Units Blood Gas Specimen Type Arterial Arterial Blood pH 7.422 7.350-7.450 Arterial Blood Partial Pressure CO2 29 L 32-45 mmHg Arterial Blood Partial Pressure O2 88.5 83.0-108.0 mmHg Arterial Blood HCO3 18.3 L 21.0-28.0 mmol/L Arterial Blood Oxygen Saturation 95.9 94.0-98.0 % Arterial Blood Base Excess -5.3 L -2.0-3.0 mmol/L Hemoglobin (Blood Gas) 8.5 L 12.0-16.0 g/dL Sodium (Blood Gas) 147 H 136-145 MMOL/L Bedside Potassium (Blood Gas) 5.1 H 3.4-4.5 MMOL/L Bedside Chloride (Blood Gas) 111 H 98-107 MMOL/L Bedside Glucose (Blood Gas) 185 H 65-95 MG/DL Bedside Ionized Calcium (Blood Gas) 0.84 L 1.15-1.33 MMOL/L Bedside Lactic Acid (Blood Gas) 11.82 *H 0.36-0.75 MMOL/L Blood Gas Temperature 37.0 35.5-37.0 CELSIUS Blood Gas Respiration Rate 18.0 min. Blood Gas Vent Mode ACVC ROOM AIR FiO2 40.0 % Blood Gas Tidal Volume 450 ml Blood Gas PEEP 5 cm H2O Blood Gas Specimen Comment ANA KEY SVETLANA White Blood Count 23.0 H 4.8-10.8 K/uL Red Blood Count 2.57 L 4.00-5.50 MIL/uL Hemoglobin 8.0 L 12.0-16.0 g/dL Hematocrit 24.5 L 36-48 % Mean Corpuscular Volume 95.3 79-99 fL Mean Corpuscular Hemoglobin 31.1 27.0-33.0 pg Mean Corpuscular Hemoglobin Concent 32.7 32.0-36.0 g/dL Red Cell Distribution Width 20.9 H 11.0-15.5 % Platelet Count 117 L 130-400 K/uL Mean Platelet Volume 11.7 H 7.5-10.5 fL Immature Granulocyte % (Auto) 1.6 H 0-1 % Neutrophils (%) (Auto) 93.0 H 40.0-77.0 % Lymphocytes (%) (Auto) 2.3 L 21.0-51.0 % Monocytes (%) (Auto) 2.9 L 3.0-13.0 % Eosinophils (%) (Auto) 0.0 0.0-8.0 % Basophils (%) (Auto) 0.2 0.0-5.0 % Neutrophils # (Auto) 21.4 H 1.8-7.7 K/uL Lymphocytes # (Auto) 0.5 L 1.0-4.8 K/uL Monocytes # (Auto) 0.7 0.1-1.0 K/uL Eosinophils # (Auto) 0.00 0.00-0.70 K/uL Basophils # (Auto) 0.04 0.00-0.20 K/uL Absolute Immature Granulocyte (auto 0.36 0-1 K/uL Nucleated Red Blood Cells 1.7 H 0.0-0.19 % Sodium Level 148 H 136-145 mmol/L Potassium Level 5.3 H 3.5-5.1 mmol/L Chloride Level 106 101-111 mmol/L Carbon Dioxide Level 18 L 21-32 mmol/L Blood Urea Nitrogen 41 H 7-18 mg/dL Creatinine 2.6 H 0.5-1.0 mg/dL Glomerular Filtration Rate Calc 18 >90 mL/min Random Glucose 189 H 70-105 mg/dL Total Calcium 6.5 L 8.5-10.1 mg/dL Magnesium Level 1.80 1.80-2.40 mg/dL Total Bilirubin 2.2 H 0.2-1.0 mg/dL Aspartate Amino Transf (AST/SGOT) 1845 *H 10-37 U/L Alanine Aminotransferase (ALT/SGPT) 958 *H 12-78 U/L Alkaline Phosphatase 163 H 50-136 U/L Troponin I High Sensitivity 53 *H 4-50 ng/L B-Type Natriuretic Peptide 755 H 0-100 pg/mL Total Protein 4.0 L 6.0-8.3 g/dL Albumin 1.8 L 3.5-5.0 g/dL Whole Blood Glucose 69 L 70-110 MG/DL Bedside Glucose Comment Notified Nurse Prothrombin Time 26.7 #H 9.6-11.6 SEC Prothromb Time International Ratio 2.79 H 0.85-1.15 Activated Partial Thromboplast Time 34.4 26.3-35.5 SEC Ammonia 38 H 11-32 umol/L Test 04/07/25 09:27 04/06/25 21:29 Range/Units Lactic Acid Level 18.4 H 0.8-2.5 mmol/L Influenza Type A Antigen Negative For Type A NEGATIVE Influenza Type B Antigen Negative For Type B NEGATIVE SARS-CoV-2, RNA, NAAT NEGATIVE SARS CoV-2 NEGATIVE Group A Streptococcus Rapid negative NEGATIVE ASSESSMENT: Septic shock. Hypoxic respiratory failure, requiring intubation. Anemia, POA requiring blood transfusion. Acute on chronic renal failure. Elevated liver enzymes. Morbid obesity. Bilateral pleural effusion. Diabetes mellitus. PLAN: Currently on vasopressor support. Patient has been started on Meropenem, vancomycin and micafungin. Continue ventilatory support. Obtain bilateral lower extremities venous Doppler. Currently pending a CT of the abdomen/pelvis/chest and right lower extremity. Continue diuretics. Monitor for bleeding. Thank you for allowing ID to participate in the care of this patient. This case was reviewed and discussed with my supervising physician Dr. Rawls and the above assessment and plan was formulated and agreed upon. ATTESTATION BY PHYSICIAN I have seen and examined the patient. I reviewed the documentation, medical decision making, and treatment plan as noted by the mid-level provider above. I agree with the findings and plan of care. CASSY RAWLS MD, [facility] Apr 08, 2025 11:57
--- NOTE | 2025-04-08 12:56 | HMCIMG ---
EXAM: US for Deep Venous Thrombosis, bilateral Lower Extremity. CLINICAL HISTORY: Leg Pain and Swelling TECHNIQUE: Real-time ultrasound scan of the veins of the bilateral lower extremity with color Doppler flow, spectral waveform analysis and compression. COMPARISON: None provided. FINDINGS: DEEP VEINS: The common femoral, superficial femoral, and popliteal veins are echolucent and compressible. There is normal color Doppler flow throughout. The visualized calf veins appear patent. SOFT TISSUES: No popliteal fossa cyst or other abnormalities. IMPRESSION: No deep venous thrombosis evident on bilateral lower extremity examination. /Kaylee
[2025-04-08] MEDS: 1/2 NS IV ONE ×2 (13:56→18:30)
[2025-04-08 16:07] LABS: ABG BASE EXCESS 2.2 mmol/L (-2.0-3.0); ABG HCO3 24.6 mmol/L (21.0-28.0); ABG OXYGEN SATURATION 93.5 % (94.0-98.0); ABG PCO2 30 mmHg (32-45); ABG PH 7.532 (7.350-7.450); CARBON MONOXIDE 0.2 % (0.5-1.5); DEVICE COMMENT ALINE; PO2, ARTERIAL BG 71.6 mmHg (83.0-108.0); TEMPERATURE, CELSIUS BG 37.0 CELSIUS (35.5-37.0)
[2025-04-08 16:33] LABS: CREATININE 2.5 mg/dL (0.5-1.0); GLOMERULAR FILTR. RATE CALC 19.0 mL/min (>90); GLUCOSE,RANDOM 255.0 mg/dL (70-105); SODIUM SERUM 147.0 mmol/L (136-145); TOTAL PROTEIN, SERUM 4.0 g/dL (6.0-8.3); UREA NITROGEN, BLOOD 49.0 mg/dL (7-18)
[2025-04-08 16:39] LABS: ASPARTATE AMINOTRANSFERASE 1437.0 U/L (10-37)
[2025-04-08] MEDS ORDERED: CALCIUM GLUC 1GM/10ML VIAL IVPB SCH (17:00)
[2025-04-08] MEDS: CALCIUM GLUC 1GM 1 GM in 0.9%NACL 100ML 100 ML IV ONE (17:12)
--- NOTE | 2025-04-08 17:30 | CONS ---
[facility] CARDIOLOGY CONSULTATION NOTE Date Patient Seen: Apr 08, 2025 Time of Visit: 17:25 Reason for Consultation: [ Bradycardia and pacemaker not capturing] History of Present Illness: [his is an 84-year-old female who was sent to the Emergency Room from the [facility] and the patient has shortness of breath and chest pain. The patient is intubated, hypoxic. The patient is also found to be septic with lactic acid greater than 6. 2d echo with LVEF 30-35%. Labs consistent with shock liver and TAY. Cardiology consulted for bradycardia with HR briefly dropping to 37 and 42 bpm several times today. K since has been corrected. [employer] rep will interrogate today. CXR with pulmonary edema. ] Past Medical History: [ ] Past Surgical History: [ ] Family History: [ ] Social History: [ ] Habits: [Never] smoker. [Denies] alcohol consumption. [Denies] illicit drug use Home Meds: [ ] Current Meds: [ ] Review of Systems: CONST: [No fever, fatigue, or weight changes.] EYES: [No recent vision problems.] ENT: [No congestion, ear pain, or sore throat.] C/V: [No chest pain, palpitations, or edema.] RESP: [No cough, congestion, wheezing or shortness of breath.] GI: [No abdominal pain, nausea, vomiting, constipation, or diarrhea.] : [No incontinence or dysuria.] SKIN: [No rash.] NEURO: [No headache, focal numbness or weakness, dizziness, or seizures.] PSYCH: [No depression or anxiety.] HEME: [No abnormal bruising or bleeding.] LYMPH: [No swollen glands.] Physical Examination: GENERAL: [Intubated and sedated.] HEAD: [Normal with no signs of head trauma.] EYES: [PERRLA, EOMI, conjunctiva and sclera normal.] ENT: [Hearing grossly intact, normal oropharynx.] NECK: [Supple without JVD. There is no tenderness, lymphadenopathy, or masses. No thyromegaly. Normal carotid upstrokes without bruits.] LUNGS: [Clear breath sounds bilaterally. There are right basilar rales one third of the way up the chest. No wheezes, or rhonchi.] HEART: [Normal rate and rhythm. Normal S1 and S2 without mumurs, gallop or rub.] VASC: [Peripheral pulses +2 bilaterally.] ABD: [Bowel sounds normal, soft, nontender, no masses, no organomegaly. No audible bruits.] : [Not examined] LYMPH: [No lymphadenopathy noted.] EXT: [No clubbing, cyanosis or edema.] SKIN: [No rashes or lesions noted.] NEURO: [Sedated] Vital Signs (last 8hr) Date Time Temp Pulse Resp B/P (MAP) Pulse Ox O2 Delivery O2 Flow Rate FiO2 04/08/25 16:45 94 18 100/58 (72) 99 04/08/25 16:30 112 18 122/77 (92) 100 04/08/25 16:15 93 18 92/53 (66) 100 04/08/25 16:00 93 18 90/53 (65) 100 04/08/25 16:00 98.2 04/08/25 16:00 100 Ventilator+ 40 50 ETT Piece+ 04/08/25 16:00 40 04/08/25 15:45 93 18 92/54 (67) 100 04/08/25 15:30 93 19 99/55 (70) 100 04/08/25 15:15 95 18 110/62 (78) 99 04/08/25 15:00 97 18 100 04/08/25 14:39 93 40 04/08/25 14:15 93 120/65 (83) 99 04/08/25 14:00 93 120/66 (84) 98 04/08/25 13:45 98 97 04/08/25 13:30 93 109/59 (76) 97 04/08/25 13:15 93 106/58 (74) 97 04/08/25 13:00 92 106/58 (74) 96 04/08/25 12:45 93 104/57 (73) 97 04/08/25 12:30 93 101/56 (71) 99 04/08/25 12:15 93 99/57 (71) 95 04/08/25 12:00 98.8 93 94/55 (68) 96 04/08/25 12:00 100 Ventilator+ 40 50 ETT Piece+ 04/08/25 12:00 99.1 04/08/25 12:00 40 04/08/25 11:45 93 95/55 (68) 93 04/08/25 11:45 93 40 04/08/25 11:30 93 96/56 (69) 93 04/08/25 11:24 93 19 04/08/25 11:15 93 97/57 (70) 96 04/08/25 11:00 93 96/55 (69) 97 04/08/25 10:45 93 92/57 (69) 92 04/08/25 10:30 99 115/66 (82) 04/08/25 10:15 68 18 116/67 (83) 95 04/08/25 10:00 71 18 124/71 (88) 93 04/08/25 09:45 74 18 121/69 (86) 94 04/08/25 09:30 83 18 120/68 (85) 94 Laboratory: [ ] Hematology Labs: Test 04/08/25 04:09 Range/Units White Blood Count 23.0 H 4.8-10.8 K/uL Red Blood Count 2.57 L 4.00-5.50 MIL/uL Hemoglobin 8.0 L 12.0-16.0 g/dL Hematocrit 24.5 L 36-48 % Mean Corpuscular Volume 95.3 79-99 fL Mean Corpuscular Hemoglobin 31.1 27.0-33.0 pg Mean Corpuscular Hemoglobin Concent 32.7 32.0-36.0 g/dL Red Cell Distribution Width 20.9 H 11.0-15.5 % Platelet Count 117 L 130-400 K/uL Mean Platelet Volume 11.7 H 7.5-10.5 fL Immature Granulocyte % (Auto) 1.6 H 0-1 % Neutrophils (%) (Auto) 93.0 H 40.0-77.0 % Lymphocytes (%) (Auto) 2.3 L 21.0-51.0 % Monocytes (%) (Auto) 2.9 L 3.0-13.0 % Eosinophils (%) (Auto) 0.0 0.0-8.0 % Basophils (%) (Auto) 0.2 0.0-5.0 % Neutrophils # (Auto) 21.4 H 1.8-7.7 K/uL Lymphocytes # (Auto) 0.5 L 1.0-4.8 K/uL Monocytes # (Auto) 0.7 0.1-1.0 K/uL Eosinophils # (Auto) 0.00 0.00-0.70 K/uL Basophils # (Auto) 0.04 0.00-0.20 K/uL Absolute Immature Granulocyte (auto 0.36 0-1 K/uL Nucleated Red Blood Cells 1.7 H 0.0-0.19 % Chemistry Labs: Test 04/08/25 15:54 04/08/25 04:09 04/07/25 16:45 04/07/25 10:02 Range/Units Sodium Level 147 H 136-145 mmol/L Potassium Level 4.8 3.5-5.1 mmol/L Chloride Level 106 101-111 mmol/L Carbon Dioxide Level 27 21-32 mmol/L Blood Urea Nitrogen 49 H 7-18 mg/dL Creatinine 2.5 H 0.5-1.0 mg/dL Glomerular Filtration Rate Calc 19 >90 mL/min Random Glucose 255 H 70-105 mg/dL Lactic Acid Level 6.0 H 0.8-2.5 mmol/L Total Calcium 6.1 L 8.5-10.1 mg/dL Total Bilirubin 1.9 H 0.2-1.0 mg/dL Aspartate Amino Transf (AST/SGOT) 1437 *H 10-37 U/L Alanine Aminotransferase (ALT/SGPT) 1056 *H 12-78 U/L Alkaline Phosphatase 170 H 50-136 U/L Total Protein 4.0 L 6.0-8.3 g/dL Albumin 1.7 L 3.5-5.0 g/dL Magnesium Level 1.80 1.80-2.40 mg/dL Troponin I High Sensitivity 53 *H 4-50 ng/L B-Type Natriuretic Peptide 755 H 0-100 pg/mL Whole Blood Glucose 69 L 70-110 MG/DL Bedside Glucose Comment Notified Nurse Ammonia 38 H 11-32 umol/L Coagulation Labs: Test 04/07/25 10:02 Range/Units Prothrombin Time 26.7 #H 9.6-11.6 SEC Prothromb Time International Ratio 2.79 H 0.85-1.15 Activated Partial Thromboplast Time 34.4 26.3-35.5 SEC Diagnostics / Radiology: [Copy/Paste Echos/Imaging Report here] Plan: [Bradycardia, possible pacemaker malfunction -pending device interrogation Moderate systolic heart failure -LVEF 30-35% -patient has presume infection although blood and urine cx negative -she is intubated for hypoxia, CXR with pulmonary edema, recommend diuresis with Lasix and see urine output response and CXR in AM ] MARLA HOWARD MD Apr 08, 2025 17:30
--- NOTE | 2025-04-08 17:33 | PN ---
[facility] PROGRESS NOTE Date Patient Seen: Apr 08, 2025 Time of Visit: 13:21 Supervising Physician: ZENOBIA PEREZ MD Primary Care Physician: SAMIA MENDOZA MD Outpatient Specialists: [ ] Inpatient Consults: CONSUELO PROBLEM LIST: Acute hypoxic respiratory failure Severe sepsis with shock Severe metabolic acidosis Hospital-acquired pneumonia Acute complicated cystitis Severe anemia, requiring transfusion Acute on chronic kidney disease Atrial fibrillation on chronic anticoagulation therapy Dilated cardiomyopathy ejection fraction 35-40% with moderate pulmonary hypot ension Remote CVA Hx of Right lower extremity DVT Right knee arthroplasty hx. INTERVAL HISTORY: Patient was seen and examined, patient worsening overnight. She remains intubated. She patient remains on a Precedex and Bicarb drip and required D10 for hypoglycemia management. Anemia was identified with a hemoglobin level of 6.7, and the patient subsequently underwent a PRBC transfusion. Currently, the patient is ventilator-dependent and on broad-spectrum antibiotics, including vancomycin, meropenem, and micafungin. Labs are planned for today at 4:00 pm and again in the morning. A CT of the chest, abdomen, pelvis, and right knee is pending, as well as a CT of the head. A VQ scan cannot be performed due to the patient's GFR. The patient is not a candidate for JACKIE inhibitors or beta- blockers due to hypotension secondary to shock. Plan is to discontinued precedex. Plan: Patient critically ill Repeat labs at 4:00 and in am Continue adjustments to vent, Solu-Medrol 60 q.6 She is on Merrem and vancomycin Continue with Mycafungin Correcting electrolytes Discontinue Precedex Lactic acid level CT of chest w/o contrast, CT of abdomen and pelvis w/o contrast, CT w/o of right knee. Total critical care time spent 50 minutes, excludes any procedures or educational time REVIEW OF SYSTEMS: unable to obtained due to patient condition. PHYSICAL EXAM: GENERAL: 84-year-old female who is intubated. HEENT: ET tube, EOMI, Sclera non icteric, moist mucosa NECK: Supple, no JVD, trachea midline LUNGS: Clear breath sounds bilaterally. No wheezes HEART: Irregular rate. Normal S1 and S2, without murmurs ABD: Abdomen soft, nontender. Bowel sounds present EXT: No clubbing cyanosis or edema NEURO: Patient is sedated Vital Signs (last 8hr) Date Time Temp Pulse Resp B/P (MAP) Pulse Ox O2 Delivery O2 Flow Rate FiO2 04/08/25 16:45 94 18 100/58 (72) 99 04/08/25 16:30 112 18 122/77 (92) 100 04/08/25 16:15 93 18 92/53 (66) 100 04/08/25 16:00 93 18 90/53 (65) 100 04/08/25 16:00 98.2 04/08/25 16:00 100 Ventilator+ 40 50 ETT Piece+ 04/08/25 16:00 40 04/08/25 15:45 93 18 92/54 (67) 100 04/08/25 15:30 93 19 99/55 (70) 100 04/08/25 15:15 95 18 110/62 (78) 99 04/08/25 15:00 97 18 100 04/08/25 14:39 93 40 04/08/25 14:15 93 120/65 (83) 99 04/08/25 14:00 93 120/66 (84) 98 04/08/25 13:45 98 97 04/08/25 13:30 93 109/59 (76) 97 04/08/25 13:15 93 106/58 (74) 97 04/08/25 13:00 92 106/58 (74) 96 04/08/25 12:45 93 104/57 (73) 97 04/08/25 12:30 93 101/56 (71) 99 04/08/25 12:15 93 99/57 (71) 95 04/08/25 12:00 98.8 93 94/55 (68) 96 04/08/25 12:00 100 Ventilator+ 40 50 ETT Piece+ 04/08/25 12:00 99.1 04/08/25 12:00 40 04/08/25 11:45 93 95/55 (68) 93 04/08/25 11:45 93 40 04/08/25 11:30 93 96/56 (69) 93 04/08/25 11:24 93 19 04/08/25 11:15 93 97/57 (70) 96 04/08/25 11:00 93 96/55 (69) 97 04/08/25 10:45 93 92/57 (69) 92 04/08/25 10:30 99 115/66 (82) 04/08/25 10:15 68 18 116/67 (83) 95 04/08/25 10:00 71 18 124/71 (88) 93 04/08/25 09:45 74 18 121/69 (86) 94 04/08/25 09:30 83 18 120/68 (85) 94 LABS: Hematology Labs: Test 04/08/25 04:09 Range/Units White Blood Count 23.0 H 4.8-10.8 K/uL Red Blood Count 2.57 L 4.00-5.50 MIL/uL Hemoglobin 8.0 L 12.0-16.0 g/dL Hematocrit 24.5 L 36-48 % Mean Corpuscular Volume 95.3 79-99 fL Mean Corpuscular Hemoglobin 31.1 27.0-33.0 pg Mean Corpuscular Hemoglobin Concent 32.7 32.0-36.0 g/dL Red Cell Distribution Width 20.9 H 11.0-15.5 % Platelet Count 117 L 130-400 K/uL Mean Platelet Volume 11.7 H 7.5-10.5 fL Immature Granulocyte % (Auto) 1.6 H 0-1 % Neutrophils (%) (Auto) 93.0 H 40.0-77.0 % Lymphocytes (%) (Auto) 2.3 L 21.0-51.0 % Monocytes (%) (Auto) 2.9 L 3.0-13.0 % Eosinophils (%) (Auto) 0.0 0.0-8.0 % Basophils (%) (Auto) 0.2 0.0-5.0 % Neutrophils # (Auto) 21.4 H 1.8-7.7 K/uL Lymphocytes # (Auto) 0.5 L 1.0-4.8 K/uL Monocytes # (Auto) 0.7 0.1-1.0 K/uL Eosinophils # (Auto) 0.00 0.00-0.70 K/uL Basophils # (Auto) 0.04 0.00-0.20 K/uL Absolute Immature Granulocyte (auto 0.36 0-1 K/uL Nucleated Red Blood Cells 1.7 H 0.0-0.19 % Chemistry Labs: Test 04/08/25 15:54 04/08/25 04:09 04/07/25 16:45 04/07/25 10:02 Range/Units Sodium Level 147 H 136-145 mmol/L Potassium Level 4.8 3.5-5.1 mmol/L Chloride Level 106 101-111 mmol/L Carbon Dioxide Level 27 21-32 mmol/L Blood Urea Nitrogen 49 H 7-18 mg/dL Creatinine 2.5 H 0.5-1.0 mg/dL Glomerular Filtration Rate Calc 19 >90 mL/min Random Glucose 255 H 70-105 mg/dL Lactic Acid Level 6.0 H 0.8-2.5 mmol/L Total Calcium 6.1 L 8.5-10.1 mg/dL Total Bilirubin 1.9 H 0.2-1.0 mg/dL Aspartate Amino Transf (AST/SGOT) 1437 *H 10-37 U/L Alanine Aminotransferase (ALT/SGPT) 1056 *H 12-78 U/L Alkaline Phosphatase 170 H 50-136 U/L Total Protein 4.0 L 6.0-8.3 g/dL Albumin 1.7 L 3.5-5.0 g/dL Magnesium Level 1.80 1.80-2.40 mg/dL Troponin I High Sensitivity 53 *H 4-50 ng/L B-Type Natriuretic Peptide 755 H 0-100 pg/mL Whole Blood Glucose 69 L 70-110 MG/DL Bedside Glucose Comment Notified Nurse Ammonia 38 H 11-32 umol/L Coagulation Labs: Test 04/07/25 10:02 Range/Units Prothrombin Time 26.7 #H 9.6-11.6 SEC Prothromb Time International Ratio 2.79 H 0.85-1.15 Activated Partial Thromboplast Time 34.4 26.3-35.5 SEC DIAGNOSTICS / RADIOLOGY RESULTS: most recent labs reviewed. PLAN NEURO: Minimize central acting medications as possible. Maintain fall precautions, adequate lighting during the day PULMONARY: Supplemental 02 as needed. Maintain aspiration precautions at all times CARDIOVASCULAR: Follow hemodynamics. Vital signs per facility protocol GI & NUTRITION: Continue with nutritional support. Continue stool softeners and laxatives as needed. KIDNEYS & ELECTROLYTES: Strict monitoring of intake, output and overall fluid balance. Avoid nephrotoxic medications to the extent possible. Medications to be dosed according to renal function. Monitor electrolytes and replace as needed ENDOCRINE: Maintain blood glucose between 100-180 at all times. Hypoglycemia protocol in place INFECTIOUS DISEASE: Trend temperature, WBC and procalcitonin level Follow cultures, deescalate antibiotics as soon as possible. Panculture if new onset fever ONCOLOGY/HEMATOLOGY/COAGULATION: Monitor for s/s of bleeding Monitor hemoglobin, coagulation studies as needed SKIN: Pressure ulcer prevention per facility protocol Specialty mattress ORTHO/REHAB: Continue PT/OT Prophylaxis: Continue GI and DVT prophylaxis Code Status: Full Resuscitation Disposition: TBD ATTESTATION BY PHYSICIAN Documentation assistance provided by a scribe, information recorded by the scribe was done at my direction and has been reviewed and validated by me." ZENOBIA PEREZ MD I personally scribed for ZENOBIA PEREZ MD ([email or web address]) on 04/08/25 at 17:33. Electronically submitted by Deborah Lopez ([id number]). ZENOBIA PEREZ MD Apr 08, 2025 17:33
--- NOTE | 2025-04-08 19:21 | NUR ---
CRITICAL RESULT REPORTED CRITICAL RESULT LACTIC ACID TO SVETLANA KEY
--- NOTE | 2025-04-08 19:58 | HMCIMG ---
EXAM: CT Chest, Abdomen and Pelvis without Intravenous Contrast CLINICAL HISTORY: evaluation of sepsis. TECHNIQUE: Axial computed tomography images of the chest, abdomen and pelvis without intravenous contrast. Dose reduction technique was used including one or more of the following: automated exposure control, adjustment of mA and kV according to patient size, and/or iterative reconstruction. Total exam DLP is 1117 mGy x cm. CONTRAST: None. COMPARISON: Prior chest radiograph dated 04/08/2025, acquired at 04:52 hours. FINDINGS: CHEST: LUNGS: Endotracheal tube with its tip positioned 3.5 cm short of juanito. Moderate sized bilateral pleural effusions with atelectasis/consolidation of the lung bases. Multifocal areas of ground-glass opacities, mosaic attenuation are present in the remainder of the lung parenchyma bilaterally. PLEURAL SPACES: Moderate sized bilateral pleural effusions. No pneumothorax. HEART AND MEDIASTINUM: Left chest wall pacemaker with electrodes terminating in the lumen of the coronary sinus and the right heart chambers. Atheromatous calcification of the aortic arch and the coronary arteries. Right sided PICC line visualized with its tip terminating in the right brachiocephalic vein. Feeding tube visualized with its tip terminating at the gastroesophageal junction. Mild cardiomegaly. Coronary arterial calcifications present. Mitral and aortic valve annulus calcifications. No significant pericardial effusion. LYMPH NODES: No lymphadenopathy. ABDOMEN AND PELVIS: LIVER: Ill-defined hypodense area measuring 2 x 2.1 cm in the segment VII of the subcapsular region of the right hepatic lobe, without areas of calcification or fat in it. GALLBLADDER AND BILE DUCTS: Gallbladder is surgically absent. No biliary ductal dilatation. PANCREAS: Pancreas is atrophic. No pancreatic ductal dilatation or calculi. SPLEEN: Spleen is atrophic and shrunken with areas of capsular calcifications. ADRENAL GLANDS: Unremarkable. KIDNEYS, URETERS, AND BLADDER: Bilateral intrarenal segmental arterial calcifications. Multiple right sided renal calculi, measuring up to 4 mm. A Mcdowell's catheter is appropriately positioned in the bladder lumen. No hydronephrosis. No ureteral or bladder calculi. STOMACH AND BOWEL: Evidence of prior surgical intervention involving the stomach, incompletely evaluated due to lack of optimal luminal distension. Gastric bypass surgery status with appropriate position of the gastrojejunal anastomosis. No obstruction. No wall thickening. No CT evidence of colitis or acute diverticulitis. APPENDIX: No CT evidence for appendicitis. PERITONEUM: No free fluid. No free air. LYMPH NODES: No lymphadenopathy. REPRODUCTIVE: Uterus is not distinctly visualized. VASCULATURE: The abdominal aorta demonstrates atheromatous calcification without aneurysm or dissection. BONES AND SOFT TISSUES: Diffuse body wall edema. Right retroperitoneal space hyperdense collection, measuring approximately 14 x 7 x 25 cm, visualized on the anterior aspect of the iliopsoas. It is extending toward the right groin. The right iliacus muscle also appears bulky with similar hyperdense contents, likely representing hematoma. The collection is visualized in the retroperitoneal compartment and is displacing the right kidney anteriorly. Severe osteopenia. Chronic appearing compression deformities of multiple thoracolumbar vertebrae, including T6, T8, T9, T11, T1. The maximum vertebral height loss is visualized at T11 level with increased thoracolumbar junction kyphosis. Grade I anterolisthesis of L4 over L5 without spondylolysis. Dextroscoliosis of the thoracolumbar spine curvature. IMPRESSION: 1. Findings consistent with aspiration pneumonitis. Compared with the prior chest radiograph dated 04/08/2025, acquired at 04:52 hours, the pulmonary parenchymal findings are stable. Right PICC line and the feeding tube need to be repositioned. 2. Large right retroperitoneal hematoma extending along the iliopsoas and into the right iliacus, displacing the right kidney. 3. Several stable chronic and incidental findings are noted, as detailed in the body of the report. /[place]
--- NOTE | 2025-04-08 21:50 | PN ---
PROGRESS NOTE PROGRESS NOTE DATE OF PROGRESS NOTE: 04/08/25 SUBJECTIVE: Remains intubated VITAL SIGNS Vital Signs Date Time Temp Pulse Resp B/P (MAP) Pulse Ox O2 Delivery O2 Flow Rate FiO2 04/08/25 20:15 92 18 106/66 (79) 97 04/08/25 20:00 96.4 04/08/25 20:00 40 04/08/25 16:00 Ventilator+ 40 ETT Piece+ PHYSICAL EXAM: PHYSICAL EXAM: GENERAL: 84-year-old female who is intubated. HEENT: ET tube, EOMI, Sclera non icteric, moist mucosa NECK: Supple, no JVD, trachea midline LUNGS: Clear breath sounds bilaterally. No wheezes HEART: Irregular rate. Normal S1 and S2, without murmurs ABD: Abdomen soft, nontender. Bowel sounds present EXT: No clubbing cyanosis or edema NEURO: Patient is sedated LABORATORY: Laboratory Result(s) Test 04/08/25 00:24 04/08/25 04:09 04/08/25 04:19 04/08/25 15:54 Blood Gas Specimen Type Arterial Arterial Arterial Blood pH 7.369 (7.350-7.450) 7.422 (7.350-7.450) Arterial Blood Partial Pressure CO2 28 mmHg (32-45) 29 mmHg (32-45) Arterial Blood Partial Pressure O2 98.3 mmHg (83.0-108.0) 88.5 mmHg (83.0-108.0) Arterial Blood HCO3 16.0 mmol/L (21.0-28.0) 18.3 mmol/L (21.0-28.0) Arterial Blood Oxygen Saturation 96.7 % (94.0-98.0) 95.9 % (94.0-98.0) Arterial Blood Base Excess -8.3 mmol/L (-2.0-3.0) -5.3 mmol/L (-2.0-3.0) Hemoglobin (Blood Gas) 8.7 g/dL (12.0-16.0) 8.5 g/dL (12.0-16.0) Sodium (Blood Gas) 147 MMOL/L (136-145) 147 MMOL/L (136-145) Bedside Potassium (Blood Gas) 5.0 MMOL/L (3.4-4.5) 5.1 MMOL/L (3.4-4.5) Bedside Chloride (Blood Gas) 111 MMOL/L (98-107) 111 MMOL/L (98-107) Bedside Glucose (Blood Gas) 157 MG/DL (65-95) 185 MG/DL (65-95) Bedside Ionized Calcium (Blood Gas) 0.86 MMOL/L (1.15-1.33) 0.84 MMOL/L (1.15-1.33) Bedside Lactic Acid (Blood Gas) 14.35 MMOL/L (0.36-0.75) 11.82 MMOL/L (0.36-0.75) Blood Gas Temperature 37.0 CELSIUS (35.5-37.0) 37.0 CELSIUS (35.5-37.0) Blood Gas Respiration Rate 18.0 min. 18.0 min. Blood Gas Vent Mode ACVC (ROOM AIR) ACVC (ROOM AIR) FiO2 40.0 % 40.0 % Blood Gas Tidal Volume 450 ml 450 ml Blood Gas PEEP 5 cm H2O 5 cm H2O Blood Gas Specimen Comment YESI MEZAIRMErlin PEREZ RN SVETLANA White Blood Count 23.0 K/uL (4.8-10.8) Red Blood Count 2.57 MIL/uL (4.00-5.50) Hemoglobin 8.0 g/dL (12.0-16.0) Hematocrit 24.5 % (36-48) Mean Corpuscular Volume 95.3 fL (79-99) Mean Corpuscular Hemoglobin 31.1 pg (27.0-33.0) Mean Corpuscular Hemoglobin Concent 32.7 g/dL (32.0-36.0) Red Cell Distribution Width 20.9 % (11.0-15.5) Platelet Count 117 K/uL (130-400) Mean Platelet Volume 11.7 fL (7.5-10.5) Immature Granulocyte % (Auto) 1.6 % (0-1) Neutrophils (%) (Auto) 93.0 % (40.0-77.0) Lymphocytes (%) (Auto) 2.3 % (21.0-51.0) Monocytes (%) (Auto) 2.9 % (3.0-13.0) Eosinophils (%) (Auto) 0.0 % (0.0-8.0) Basophils (%) (Auto) 0.2 % (0.0-5.0) Neutrophils # (Auto) 21.4 K/uL (1.8-7.7) Lymphocytes # (Auto) 0.5 K/uL (1.0-4.8) Monocytes # (Auto) 0.7 K/uL (0.1-1.0) Eosinophils # (Auto) 0.00 K/uL (0.00-0.70) Basophils # (Auto) 0.04 K/uL (0.00-0.20) Absolute Immature Granulocyte (auto 0.36 K/uL (0-1) Nucleated Red Blood Cells 1.7 % (0.0-0.19) Sodium Level 148 mmol/L (136-145) 147 mmol/L (136-145) Potassium Level 5.3 mmol/L (3.5-5.1) 4.8 mmol/L (3.5-5.1) Chloride Level 106 mmol/L (101-111) 106 mmol/L (101-111) Carbon Dioxide Level 18 mmol/L (21-32) 27 mmol/L (21-32) Blood Urea Nitrogen 41 mg/dL (7-18) 49 mg/dL (7-18) Creatinine 2.6 mg/dL (0.5-1.0) 2.5 mg/dL (0.5-1.0) Glomerular Filtration Rate Calc 18 mL/min (>90) 19 mL/min (>90) Random Glucose 189 mg/dL (70-105) 255 mg/dL (70-105) Total Calcium 6.5 mg/dL (8.5-10.1) 6.1 mg/dL (8.5-10.1) Magnesium Level 1.80 mg/dL (1.80-2.40) Total Bilirubin 2.2 mg/dL (0.2-1.0) 1.9 mg/dL (0.2-1.0) Aspartate Amino Transf (AST/SGOT) 1845 U/L (10-37) 1437 U/L (10-37) Alanine Aminotransferase (ALT/SGPT) 958 U/L (12-78) 1056 U/L (12-78) Alkaline Phosphatase 163 U/L (50-136) 170 U/L (50-136) Troponin I High Sensitivity 53 ng/L (4-50) B-Type Natriuretic Peptide 755 pg/mL (0-100) Total Protein 4.0 g/dL (6.0-8.3) 4.0 g/dL (6.0-8.3) Albumin 1.8 g/dL (3.5-5.0) 1.7 g/dL (3.5-5.0) Lactic Acid Level 6.0 mmol/L (0.8-2.5) Test 04/08/25 16:05 04/08/25 19:13 04/08/25 19:59 Blood Gas Specimen Type Arterial Arterial Blood pH 7.532 (7.350-7.450) Arterial Blood Partial Pressure CO2 30 mmHg (32-45) Arterial Blood Partial Pressure O2 71.6 mmHg (83.0-108.0) Arterial Blood HCO3 24.6 mmol/L (21.0-28.0) Arterial Blood Oxygen Saturation 93.5 % (94.0-98.0) Arterial Blood Base Excess 2.2 mmol/L (-2.0-3.0) Hemoglobin (Blood Gas) 8.8 g/dL (12.0-16.0) Sodium (Blood Gas) 147 MMOL/L (136-145) Bedside Potassium (Blood Gas) 4.4 MMOL/L (3.4-4.5) Bedside Chloride (Blood Gas) 111 MMOL/L (98-107) Bedside Glucose (Blood Gas) 248 MG/DL (65-95) Bedside Ionized Calcium (Blood Gas) 0.81 MMOL/L (1.15-1.33) Bedside Lactic Acid (Blood Gas) 5.48 MMOL/L (0.36-0.75) Blood Gas Temperature 37.0 CELSIUS (35.5-37.0) Blood Gas Respiration Rate 18.0 min. Blood Gas Vent Mode SHANKAR THOMASON RN (ROOM AIR) FiO2 40.0 % Blood Gas Tidal Volume 450 ml Blood Gas PEEP 5 cm H2O Blood Gas Specimen Comment ANA Lactic Acid Level 5.2 mmol/L (0.8-2.5) Whole Blood Glucose 226 MG/DL (70-110) INPATIENT MEDS: Current Medications Medications Dose Ordered Sig/Asif Start Time Stop Time Status Last Admin Diazepam 5 mg Q4H PRN 04/06/25 09:00 04/13/25 08:59 04/07/25 15:28 Vancomycin HCl 1 each AD 04/06/25 10:00 04/20/25 09:59 Dextrose 50 ml AD PRN 04/06/25 16:30 05/06/25 16:29 04/07/25 16:56 Glucagon 1 mg AD PRN 04/06/25 16:30 05/06/25 16:29 Dexmedetomidine/ Sodium Chloride 400 mcg PROTOCOL 04/06/25 18:30 05/06/25 18:29 04/08/25 12:19 Vasopressin 40 units/Sodium Chloride 40 ml @ 0 mls/hr PROTOCOL 04/06/25 21:30 05/06/25 21:29 04/07/25 04:33 Phenylephrine HCl 100 mg/Sodium Chloride 250 ml @ 0 mls/hr AD PRN 04/06/25 22:00 05/06/25 21:59 Epinephrine HCl 10 mg/Sodium Chloride 250 ml @ 0 mls/hr PROTOCOL 04/06/25 22:00 05/06/25 21:59 Pantoprazole Sodium 40 mg BID 04/07/25 09:00 05/07/25 08:59 04/08/25 21:23 Norepinephrine Bitartrate 32 mg/ Sodium Chloride 250 ml @ 0 mls/hr PROTOCOL 04/07/25 08:30 05/07/25 08:29 04/08/25 01:59 Ipratropium [place] 0.5 mg [id number] 04/07/25 12:00 05/07/25 11:59 04/08/25 18:31 Midazolam HCl 2 mg Q2HPRN PRN 04/07/25 16:00 05/07/25 15:59 04/07/25 16:05 Fentanyl/Sodium Chloride 250 ml @ 0.1 mls/hr PROTOCOL 04/08/25 02:00 04/13/25 01:59 04/08/25 06:32 Methylprednisolone Sodium Succinate 60 mg Q6H 04/08/25 10:00 05/06/25 21:59 04/08/25 16:38 Vancomycin HCl 750 mg Q48H 04/09/25 09:00 04/17/25 08:59 Meropenem 1 gm Q24H 04/08/25 23:00 04/16/25 10:59 Micafungin Sodium 100 ml @ 100 mls/hr Q24H 04/08/25 10:00 04/09/25 09:59 04/08/25 09:19 Sodium Bicarbonate 150 meq/Dextrose 1,000 ml @ 100 mls/hr Q10H 04/08/25 11:30 05/09/25 00:29 04/08/25 12:18 Sodium Chloride 500 ml @ 500 mls/hr Q1H ONCE 04/09/25 00:30 04/09/25 01:29 Furosemide 20 mg Q8H 04/08/25 15:30 05/08/25 15:29 04/08/25 16:38 PLAN: Acute hypoxic respiratory failure Severe sepsis with shock Severe metabolic acidosis Hospital-acquired pneumonia Acute complicated cystitis Severe anemia, requiring transfusion Acute on chronic kidney disease Atrial fibrillation on chronic anticoagulation therapy Dilated cardiomyopathy ejection fraction 35-40% with moderate pulmonary hypotension Remote CVA Hx of Right lower extremity DVT Right knee arthroplasty hx. Plan: Continue adjustments to vent, Solu-Medrol 60 q.6 She is on Merrem and vancomycin Continue with Mycafungin Correcting electrolytes Discontinue Precedex Lactic acid level CT of chest w/o contrast, CT of abdomen and pelvis w/o contrast, CT w/o of right knee. INDERJIT CRISTOBAL MD Apr 08, 2025 21:50
[2025-04-08] MEDS: MEROPENEM 1GM 1 GM VIAL IVPB SCH (21:51)
--- NOTE | 2025-04-08 21:55 | HMCIMG ---
EXAM: CR Chest, single view. CLINICAL HISTORY: Endotracheal tube COMPARISON: Prior chest radiograph dated April 07, 2025. FINDINGS: The endotracheal tube is identified approximately 2.5 cm from the juanito. Consider proximal retraction by approximately 2 cm. The nasogastric tube is identified with the distal aspect of the tube in the infra-diaphragmatic region; however, the tip is not visualized. Right-sided PICC catheter with tip in the superior vena cava. Moderate cardiomegaly with bilateral pulmonary congestion. A battery pack is in the left anterior chest wall with pacemaker wires in the right atrium and ventricle. Mild to moderate right-sided pleural effusion and minimal left-sided pleural effusion with adjacent lung atelectasis. No acute osseous abnormality. IMPRESSION: The endotracheal tube is identified approximately 2.5 cm from the juanito. Consider proximal retraction by approximately 2 cm. The nasogastric tube is identified with the distal aspect of the tube in the infra-diaphragmatic region; however, the tip is not visualized. Right-sided PICC catheter with tip in the superior vena cava. Moderate cardiomegaly with bilateral pulmonary congestion. A battery pack is in the left anterior chest wall with pacemaker wires in the right atrium and ventricle. Mild to moderate right-sided pleural effusion and minimal left-sided pleural effusion with adjacent lung atelectasis. Compared to the prior study, there is no significant interval change. /[place]
--- NOTE | 2025-04-08 22:18 | HMCIMG ---
EXAM: CR Chest, 1 view CLINICAL HISTORY: PICC line placement. Endotracheal tube. COMPARISON: 04/08/2025. FINDINGS: The right side PICC line tip overlies the mid to distal right brachiocephalic vein. The endotracheal tube tip is 4.6 cm above the juanito. The gastric tube tip is around the retrocardiac area, recommend 15 cm advancement of the gastric tube. Left-sided cardiac pacemaker device in place. Mild cardiomegaly, pulmonary vascular congestion, pulmonary edema, airspace disease in the bilateral lung [place], and small to medium bilateral pleural effusions. Mild atherosclerotic aorta. No pneumothorax. Mildly elevated right hemidiaphragm. No acute osseous abnormality. IMPRESSION: The right side PICC line tip overlies the mid to distal right brachiocephalic vein. The endotracheal tube tip is 4.6 cm above the juanito. The gastric tube tip is around the retrocardiac area, recommend 15 cm advancement of the gastric tube. Left-sided cardiac pacemaker device in place. Mild cardiomegaly, pulmonary vascular congestion, pulmonary edema, airspace disease in the bilateral lung [place], and small to medium bilateral pleural effusions. Compared to the prior study, there is no significant interval change. /[place]
[2025-04-09] VITALS (103 sets, daily range): BP systolic 68–137; BP diastolic 44–76; PULSE 90–107; RESP 18; TEMP 96.3–98.6; O2SAT 98–100
[2025-04-09] MEDS: 1/2 NS IV ONE (00:43)
--- NOTE | 2025-04-09 01:53 | PN ---
SUBJECTIVE: The patient is still mechanically ventilated and the patient does not follow commands at this time. He does not respond to commands. OBJECTIVE: VITAL SIGNS: Blood pressure is 120/80 with Levophed. The patient is on FiO2 of 40% on mechanical ventilator. LUNGS: The patient has decreased breath sounds bilaterally. Rhonchi noted. HEART: Regular and regular. ABDOMEN: Soft. EXTREMITIES: +1 edema. ASSESSMENT AND PLAN: Respiratory failure, sepsis, and hypertensive septic shock. The patient is on Levophed at this time and increased transaminases is probably secondary to the sepsis. The patient's overall condition is guarded. Prognosis remains poor. TID: [id number] RECEIPT: [id number]
[2025-04-09 03:06] LABS: ABG BASE EXCESS 5.1 mmol/L (-2.0-3.0); ABG HCO3 27.6 mmol/L (21.0-28.0); ABG OXYGEN SATURATION 95.2 % (94.0-98.0); ABG PCO2 33 mmHg (32-45); ABG PH 7.545 (7.350-7.450); CARBON MONOXIDE 0.8 % (0.5-1.5); PO2, ARTERIAL BG 76.0 mmHg (83.0-108.0); TEMPERATURE, CELSIUS BG 37.0 CELSIUS (35.5-37.0); VENT MODE, BG AC (ROOM AIR)
[2025-04-09 04:19] LABS: IMMATURE GRANULOCYTE ABSOLUTE 0.09 K/uL (0-1); NUCLEATED RED BLOOD CELLS 3.2 % (0.0-0.19); PLATELET COUNT (AUTO) 113 K/uL (130-400); RED BLOOD CELL COUNT(AUTO) 2.62 MIL/uL (4.00-5.50); RED CELL DISTRIBUTION WIDTH 19.1 % (11.0-15.5); WHITE BLOOD COUNT (AUTO) 20.2 K/uL (4.8-10.8)
[2025-04-09 04:27] LABS: INR 2.22 (0.85-1.15)
[2025-04-09 04:36] LABS: CREATININE 2.4 mg/dL (0.5-1.0); GLOMERULAR FILTR. RATE CALC 20.0 mL/min (>90); GLUCOSE,RANDOM 255.0 mg/dL (70-105); SODIUM SERUM 147.0 mmol/L (136-145); TOTAL PROTEIN, SERUM 3.7 g/dL (6.0-8.3); UREA NITROGEN, BLOOD 60.0 mg/dL (7-18)
[2025-04-09 04:40] LABS: ASPARTATE AMINOTRANSFERASE 773.0 U/L (10-37)
[2025-04-09] MEDS ORDERED: 0.9%NACL 50ML IV SCH (05:00)
[2025-04-09] MEDS: MAGNESIUM 2GM PREMIX 50ML 50 ML IV SCH (05:17)
[2025-04-09] MEDS: CALCIUM GLUC 1GM/10ML VIAL IVPB SCH (05:17)
--- NOTE | 2025-04-09 06:34 | HMCIMG ---
EXAM: CR Abdomen, 2 View. CLINICAL HISTORY: OGT PLACEMENT COMPARISON: None provided. FINDINGS: BOWEL: The OGT tube was noted with its distal tip in the stomach. The bowel gas pattern is within normal limits. PERITONEUM/SOFT TISSUES: No free air evident. No pathologic appearing calcification. BONES: No acute osseous abnormality. IMPRESSION: The bowel gas pattern is within normal limits. /[place]
--- NOTE | 2025-04-09 09:35 | HMCIMG ---
EXAM: CT Head Without IV contrast. CLINICAL HISTORY: AMS TECHNIQUE: Axial computed tomography images of the head/brain without intravenous contrast. COMPARISON: None provided. FINDINGS: BRAIN: Age-related cerebral atrophy. Chronic ischemic changes. No evidence of acute hemorrhage. No mass lesion. No CT evidence for acute territorial infarct. No midline shift or extra-axial collections. VENTRICLES: No hydrocephalus. ORBITS: The orbits are unremarkable. SINUSES AND MASTOIDS: The paranasal sinuses and mastoid air cells are clear. BONES: No fracture. SOFT TISSUES: Unremarkable. IMPRESSION: 1. No acute intracranial findings. Chronic ischemic and atrophic changes. /[place]
[2025-04-09] MEDS: VANCOMYCIN 750MG VIAL IVPB SCH (09:56)
[2025-04-09] MEDS ORDERED: PHARMACY COMMUNICATION MISC SCH ×2 (10:00→13:30)
[2025-04-09] MEDS: 1/2 NS IV SCH ×2 (10:04→22:00)
--- NOTE | 2025-04-09 13:11 | HMCIMG ---
EXAM: CR Chest, single view. CLINICAL HISTORY: Endotracheal tube placement COMPARISON: Prior chest radiograph dated April 08, 2025 FINDINGS: The endotracheal tube is identified approximately 4.1 cm from the juanito. The nasogastric tube is identified with the distal aspect of the tube in the infra-diaphragmatic region; however, the tip is not visualized. Left-sided cardiac pacemaker with pacemaker wires in the right atrium and ventricles. Mild cardiomegaly with bilateral pulmonary congestion. Mild right-sided pleural effusion minimal left-sided pleural effusion, with subtle blunting of the left costophrenic angle. No evidence of pneumothorax. No acute osseous abnormality. IMPRESSION: The endotracheal tube is identified approximately 5.5 cm from the juanito. The nasogastric tube is identified with the distal aspect of the tube in the infra-diaphragmatic region; however, the tip is not visualized. Left-sided cardiac pacemaker with pacemaker wires in the right atrium and ventricles.Mild cardiomegaly with bilateral pulmonary congestion. Mild right-sided pleural effusion, minimal left-sided pleural effusion, with subtle blunting of the left costophrenic angle. No evidence of pneumothorax. Compared to the prior study, there is no significant interval change. /[place]
[2025-04-09] MEDS ORDERED: LINEZOLID 600 MG/ISO-OSM 300 ML IV SCH (14:00)
[2025-04-09] MEDS ORDERED: 1/2 NS IV SCH ×2 (14:00→18:00)
[2025-04-09] MEDS: DEXTROSE 5 %-0.45 % NACL 1,000 ML IV SCH (15:00)
--- NOTE | 2025-04-09 15:35 | PN ---
[facility] PROGRESS NOTE Date Patient Seen: Apr 09, 2025 Time of Visit: 15:30 Supervising Physician: ZENOBIA PEREZ MD Primary Care Physician: JESUS MENDOZA MD Outpatient Specialists: [ ] Inpatient Consults: BIS PROBLEM LIST: Retroperitoneal hemorrhage newly diagnosed via CT scan of the abdomen Acute hypoxic respiratory failure present on admission Severe sepsis with shock Severe metabolic acidosis Hospital-acquired pneumonia Acute complicated cystitis Severe anemia, requiring transfusion Acute on chronic kidney disease Atrial fibrillation on chronic anticoagulation therapy Dilated cardiomyopathy ejection fraction 35-40% with moderate pulmonary hypotension Remote CVA Hx of Right lower extremity DVT Right knee arthroplasty hx. INTERVAL HISTORY: Patient remains in the ICU. Critically ill, continues with metabolic acidosis currently on mechanical ventilatory support CT scan of the abdomen shows a retroperitoneal hemorrhage Surgery has been consulted Patient remains on Levophed Systolic blood pressure remains in the low 100s No fevers, no chills, no seizures. Low urine output reported REVIEW OF SYSTEMS: unable to obtained due to patient condition. Currently on mechanical ventilatory support, paralyzed and sedated. PHYSICAL EXAM: GENERAL: 84-year-old female who is intubated. HEENT: ET tube, EOMI, Sclera non icteric, moist mucosa NECK: Supple, no JVD, trachea midline LUNGS: Clear breath sounds bilaterally. No wheezes HEART: Irregular rate. Normal S1 and S2, without murmurs ABD: Abdomen soft, nontender. Bowel sounds present EXT: No clubbing cyanosis or edema NEURO: Patient is sedated Vital Signs (last 8hr) Date Time Temp Pulse Resp B/P (MAP) Pulse Ox O2 Delivery O2 Flow Rate FiO2 04/09/25 11:25 93 40 04/09/25 11:06 93 18 04/09/25 09:10 90 40 LABS: Hematology Labs: Test 04/09/25 04:10 Range/Units White Blood Count 20.2 H 4.8-10.8 K/uL Red Blood Count 2.62 L 4.00-5.50 MIL/uL Hemoglobin 8.2 L 12.0-16.0 g/dL Hematocrit 24.3 L 36-48 % Mean Corpuscular Volume 92.7 79-99 fL Mean Corpuscular Hemoglobin 31.3 27.0-33.0 pg Mean Corpuscular Hemoglobin Concent 33.7 32.0-36.0 g/dL Red Cell Distribution Width 19.1 H 11.0-15.5 % Platelet Count 113 L 130-400 K/uL Mean Platelet Volume 12.5 H 7.5-10.5 fL Immature Granulocyte % (Auto) 0.4 0-1 % Neutrophils (%) (Auto) 92.8 H 40.0-77.0 % Lymphocytes (%) (Auto) 2.6 L 21.0-51.0 % Monocytes (%) (Auto) 2.7 L 3.0-13.0 % Eosinophils (%) (Auto) 1.2 0.0-8.0 % Basophils (%) (Auto) 0.3 0.0-5.0 % Neutrophils # (Auto) 18.7 H 1.8-7.7 K/uL Lymphocytes # (Auto) 0.5 L 1.0-4.8 K/uL Monocytes # (Auto) 0.6 0.1-1.0 K/uL Eosinophils # (Auto) 0.24 0.00-0.70 K/uL Basophils # (Auto) 0.06 0.00-0.20 K/uL Absolute Immature Granulocyte (auto 0.09 0-1 K/uL Nucleated Red Blood Cells 3.2 H 0.0-0.19 % Chemistry Labs: Test 04/09/25 04:10 04/08/25 19:59 04/08/25 04:09 04/07/25 16:45 Range/Units Sodium Level 147 H 136-145 mmol/L Potassium Level 4.7 3.5-5.1 mmol/L Chloride Level 107 101-111 mmol/L Carbon Dioxide Level 32 21-32 mmol/L Blood Urea Nitrogen 60 H 7-18 mg/dL Creatinine 2.4 H 0.5-1.0 mg/dL Glomerular Filtration Rate Calc 20 >90 mL/min Random Glucose 255 H 70-105 mg/dL Lactic Acid Level 3.5 H 0.8-2.5 mmol/L Total Calcium 5.9 *L 8.5-10.1 mg/dL Magnesium Level 1.50 L 1.80-2.40 mg/dL Total Bilirubin 1.6 H 0.2-1.0 mg/dL Aspartate Amino Transf (AST/SGOT) 773 *H 10-37 U/L Alanine Aminotransferase (ALT/SGPT) 868 *H 12-78 U/L Alkaline Phosphatase 163 H 50-136 U/L Total Protein 3.7 L 6.0-8.3 g/dL Albumin 1.5 L 3.5-5.0 g/dL Whole Blood Glucose 226 H 70-110 MG/DL Troponin I High Sensitivity 53 *H 4-50 ng/L B-Type Natriuretic Peptide 755 H 0-100 pg/mL Bedside Glucose Comment Notified Nurse Coagulation Labs: Test 04/09/25 04:10 Range/Units Prothrombin Time 21.7 H 9.6-11.6 SEC Prothromb Time International Ratio 2.22 H 0.85-1.15 Activated Partial Thromboplast Time 46.7 H 26.3-35.5 SEC DIAGNOSTICS / RADIOLOGY RESULTS: CT scan of the abdomen positive for retroperitoneal hemorrhage PLAN Patient is critically ill and requires medical management in the ICU Try to slowly wean off pressors as tolerated Consult surgery regarding retroperitoneal hemorrhage Replace electrolytes as per ICU protocol Continue mechanical ventilator settings, do not attempt weaning at this time. NEURO: Minimize central acting medications as possible. Fall Precautions. Well lighted room through the day and minimize interruptions through the night to prevent acute delirium. PULMONARY: On mechanical ventilator support via endotracheal tube at this time CARDIOVASCULAR: Follow hemodynamics. Titrate vasopressor to keep MAP >65 or systolic blood pressure >95mmHg DIPS: [ Levophed ] GI & NUTRITION: Continue nutritional support Aspirations precautions Prokinetic agents and laxatives as needed KIDNEYS & ELECTROLYTES: Strict monitoring of intake and output Daily weights Avoid nephrotoxic agents Monitor electrolytes and replace as needed Goal urine output of 30mL/hr or 0.5mL/kg/hr ENDOCRINE: Maintain blood glucose between 100-180 at all times. Insulin sliding scale for blood glucose management INFECTIOUS DISEASE: Trend temperature. Pittman-culture if febrile. Micro: [Pending results ] Antibiotics: [ As per I and D] HEMATOLOGY & COAGULATION: Monitor H&H. Keep Hgb > 7 Transfuse 1 unit of PRBC for Hgb < 7 Transfuse 1 pack of platelets of platelets < 20, 000 Watch for any signs and symptoms of bleeding SKIN: Pressure ulcer prevention per facility protocol Rehab: PT/OT Prophylaxis: GI: [ Protonix 40 mg IV b.i.d.] DVT: [SCDs to the lower extremities ] Code Status: Full Resuscitation Disposition: [Continue medical management in the ICU ] Total critical care time 35 minutes I personally scribed for ZENOBIA PEREZ MD ([email or web address]) on 04/09/25 at 15:35. Electro nically submitted by Jesus Camargo ([email or web address]). ZENOBIA PEREZ MD Apr 09, 2025 15:35
--- NOTE | 2025-04-09 15:37 | HMCIMG ---
STUDY CT Right Knee Without IV ContrastHISTORY Right knee pain and swelling.TECHNIQUE Axial CT images of the right knee obtained without intravenous contrast. Multiplanar reformations reviewed. CT dose???length product: 524 mGy???cm.COMPARISON None provided.FINDINGS Bones Beam-hardening artifact from knee arthroplasty hardware limits fine osseous evaluation. At the distal femoral metaphysis, cortical rarefaction with interrupted erosions along the posterior cortex at the prosthesis???bone interface raises concern for particle disease???related osteolysis versus prosthetic joint infection???associated endosteal erosion. No acute fracture is identified. Joints Large knee joint effusion with suprapatellar extension. A medial suprapatellar/prepatellar fluid collection tracks toward the skin surface, suspicious for extra-articular extension or sinus-tract???forming collection. Arthroplasty components in expected position; no gross dislocation. Soft Tissues Extensive myofascial edema and cellulitis involving the distal thigh and proximal leg. No discrete drainable intramuscular or intercompartmental abscess in the visualized field. Multiple punctate radiodense subcutaneous foci in the anterior proximal leg likely represent post-surgical debris or calcified granulomas.IMPRESSION : * Extensive distal thigh/proximal leg myofascial edema and cellulitis without a discrete drainable collection, with a large knee effusion and a medial suprapatellar/prepatellar fluid collection tracking superficially suspicious for extra-articular or sinus-tract???forming extension. * Cortical rarefaction with interrupted erosions at the distal femoral metaphysis along the prosthesis???bone interface concerning for osteolysis versus prosthetic joint infection???associated endosteal erosion; no acute fracture, evaluation limited by hardware artifact. /[place]
--- NOTE | 2025-04-09 16:12 | CONS ---
CONSULT NOTE: Consulting physician:Dr Brown Consulting service: General surgery Reason for consultation: Large retroperitoneal hematoma History of present illness: This is an 84-year-old female initially presented to ED from [facility] for concerns of shortness of breath and chest pain. Patient was found to be hypoxic and required intubation. Patient is seen in ICU in HPI difficult to obtain due to patient's intubated status. Patient with a history of pacemaker. Patient takes Pradaxa for anticoagulation. Continued workup CT imaging performed and concerns of large retroperitoneal hematoma noted measuring 14 x 7 x 25 cm. Patient also with a elevated troponins. WBCs 23.3. LFTs significantly elevated. patient remains on Levophed. No family at bedside Medical history: Frequent recurrent UTI Surgical history: Pacemaker status Recent knee surgery Review of systems: General: No Fever, No Chills, No Night Sweats, No Fatigue, No Malaise, No Appetite, No Other HEENT: No Head Aches, No Visual Changes, No Eye Pain, No Ear Pain, No Dysphasia, No Sinus Congestion, No Post Nasal Drip, No Sore Throat, No Other Pulmonary: No Dyspnea, No Cough, No Pleuritic Chest Pain, No Other Cardiovascular: No: Chest Pain, Palpitations, Orthopnea, Paroxysmal No Dyspnea, Edema, Lt Headedness, Other Gastrointestinal: No: Nausea, Vomiting, Diarrhea, Constipation, Melena, Hematochezia, Other Genitourinary: No Dysuria, No Frequency, No Incontinence, No Hematuria, No Retention, No Other Musculoskeletal: No: other, neck pain, shoulder pain, arm pain, back pain, hand pain, leg pain, foot pain Skin: No Urticaria, No Rash, No Other Neurological: No: Weakness, Numbness, Incoordination, Change in speech, Confusion, Seizures, Other Physical exam: GENERAL: 84-year-old female who is intubated. HEENT: ET tube, EOMI, Sclera non icteric, moist mucosa NECK: Supple, no JVD, trachea midline LUNGS: Clear breath sounds bilaterally. No wheezes HEART: Irregular rate. Normal S1 and S2, without murmurs ABD: Abdomen soft, nontender. Bowel sounds present EXT: No clubbing cyanosis or edema NEURO: Patient is sedated Assessment: This is a 84-year-old female with concerns of large retroperitoneal hematoma Plan: From surgical standpoint no immediate surgical intervention planned Transfuse as needed as per ICU recommendations Continue with cardiology recommendations Dr. Barajas has been updated in patient's status and surgical team to follow patient closely Surgical case has been discussed with my supervising physician in the above plan was formulated and agreed upon Supervising physicians evaluation the patient be done within next 24 hours We appreciate the hospitalist team for us to participate in patient's care. Greater than 55 minutes of time spent patient, reviewing chart, working on documentation SANAZ MONTERROSO Jr. PAC Apr 09, 2025 16:12
[2025-04-09] MEDS: LINEZOLID 600 MG/ISO-OSM 300 ML IV SCH (16:46)
[2025-04-09 18:37] LABS: INR 1.64 (0.85-1.15)
--- NOTE | 2025-04-09 19:49 | PN ---
INFECTIOUS DISEASE PROGRESS NOTE Date of Service: Apr 09, 2025 SUBJECTIVE: This is an 84-year-old female patient seen and examined at bedside in room 208. Patient remains intubated and sedated and on vasopressor support. Slight improvement on the WBC which is down to 20.2 and no fever. BUN and creatinine continues elevated. We will discontinue vancomycin and start patient on linezolid IV and continue on Meropenem. The venous Doppler obtained yesterday was negative for DVT. The CT of the abdomen however showed a right retroperitoneal hematoma and pending General surgeon evaluation. We will continue to follow patient's care. PHYSICAL EXAM EYES: Anicteric. Pupils equal and reactive. HENT: No oral thrush seen, moist Oral mucosa NECK: Supple, no JVD or thyromegaly. LUNGS: Mechanical ventilation. CARDIOVASCULAR: S1, S2 regular. No murmur heard. ABDOMEN: Soft, non tender, bowel sounds present, no organomegaly CENTRAL NERVOUS SYSTEM: Intubated and sedated. SKIN: No rashes, no swelling. LYMPHATICS: No peripheral lymphadenopathy MUSCULOSKELETAL: No joint swelling, erythema or tenderness. EXTREMITIES: No cyanosis or clubbing. Generalized edema. BACK: No deformity, no pressure ulcer. GENITOURINARY: No dysuria or hematuria, Mcdowell catheter. Vital Sign (Last 12 Hours) 04/09/25 04/09/25 04/09/25 04/09/25 07:45 08:00 08:00 08:00 Temp 98.4 Pulse 93 93 B/P (MAP) 109/61 (77) 104/59 (74) Pulse Ox 96 98 FiO2 40 04/09/25 04/09/25 04/09/25 04/09/25 08:15 08:30 08:45 09:00 Pulse 93 93 93 93 B/P (MAP) 82/57 (65) 83/55 (64) 82/54 (63) 81/55 (64) Pulse Ox 100 100 90 91 04/09/25 04/09/25 04/09/25 04/09/25 09:10 09:15 09:30 09:45 Pulse 90 93 93 93 B/P (MAP) 82/58 (66) 81/58 (66) 80/58 (65) Pulse Ox 92 92 98 FiO2 40 04/09/25 04/09/25 04/09/25 04/09/25 10:00 10:15 10:30 10:45 Pulse 93 93 94 93 B/P (MAP) 80/59 (66) 90/63 (72) 94/66 (75) 93/65 (74) Pulse Ox 98 98 99 100 04/09/25 04/09/25 04/09/25 04/09/25 11:00 11:06 11:15 11:25 Pulse 92 93 93 93 Resp 18 B/P (MAP) 87/62 (70) 89/63 (72) Pulse Ox 99 98 FiO2 40 04/09/25 04/09/25 04/09/25 04/09/25 11:30 11:45 12:00 12:00 Temp 98.2 Pulse 93 93 B/P (MAP) 86/61 (69) 87/61 (70) Pulse Ox 98 98 FiO2 40 04/09/25 04/09/25 04/09/25 04/09/25 12:00 12:15 12:30 12:45 Pulse 93 93 93 93 B/P (MAP) 128/52 (77) 105/59 (74) 113/61 (78) 115/61 (79) Pulse Ox 99 99 100 98 04/09/25 04/09/25 04/09/25 04/09/25 13:00 13:15 13:30 13:45 Pulse 92 93 94 93 B/P (MAP) 118/62 (80) 115/60 (78) 108/58 (75) 106/57 (73) Pulse Ox 99 100 99 98 04/09/25 04/09/25 04/09/25 04/09/25 15:20 16:00 16:00 19:17 Temp 98.6 Pulse 99 93 FiO2 40 40 40 04/09/25 19:17 Pulse 93 Resp 18 Intake & Output (last 24hrs) 04/08/25 04/08/25 04/09/25 15:00 23:00 07:00 Intake Total 1000.0 ml 765.5 ml 1513.2 ml Output Total 400 ml 700 ml Balance 1000.0 ml 365.5 ml 813.2 ml LABS: Laboratory: Test 04/09/25 17:45 04/09/25 08:22 04/09/25 04:10 04/09/25 03:04 Range/Units Prothrombin Time 16.8 #H 9.6-11.6 SEC Prothromb Time International Ratio 1.64 H 0.85-1.15 Activated Partial Thromboplast Time 36.6 H 26.3-35.5 SEC Vancomycin Level Trough 14.8 # 10.0-20.0 UG/ML White Blood Count 20.2 H 4.8-10.8 K/uL Red Blood Count 2.62 L 4.00-5.50 MIL/uL Hemoglobin 8.2 L 12.0-16.0 g/dL Hematocrit 24.3 L 36-48 % Mean Corpuscular Volume 92.7 79-99 fL Mean Corpuscular Hemoglobin 31.3 27.0-33.0 pg Mean Corpuscular Hemoglobin Concent 33.7 32.0-36.0 g/dL Red Cell Distribution Width 19.1 H 11.0-15.5 % Platelet Count 113 L 130-400 K/uL Mean Platelet Volume 12.5 H 7.5-10.5 fL Immature Granulocyte % (Auto) 0.4 0-1 % Neutrophils (%) (Auto) 92.8 H 40.0-77.0 % Lymphocytes (%) (Auto) 2.6 L 21.0-51.0 % Monocytes (%) (Auto) 2.7 L 3.0-13.0 % Eosinophils (%) (Auto) 1.2 0.0-8.0 % Basophils (%) (Auto) 0.3 0.0-5.0 % Neutrophils # (Auto) 18.7 H 1.8-7.7 K/uL Lymphocytes # (Auto) 0.5 L 1.0-4.8 K/uL Monocytes # (Auto) 0.6 0.1-1.0 K/uL Eosinophils # (Auto) 0.24 0.00-0.70 K/uL Basophils # (Auto) 0.06 0.00-0.20 K/uL Absolute Immature Granulocyte (auto 0.09 0-1 K/uL Nucleated Red Blood Cells 3.2 H 0.0-0.19 % Sodium Level 147 H 136-145 mmol/L Potassium Level 4.7 3.5-5.1 mmol/L Chloride Level 107 101-111 mmol/L Carbon Dioxide Level 32 21-32 mmol/L Blood Urea Nitrogen 60 H 7-18 mg/dL Creatinine 2.4 H 0.5-1.0 mg/dL Glomerular Filtration Rate Calc 20 >90 mL/min Random Glucose 255 H 70-105 mg/dL Lactic Acid Level 3.5 H 0.8-2.5 mmol/L Total Calcium 5.9 *L 8.5-10.1 mg/dL Magnesium Level 1.50 L 1.80-2.40 mg/dL Total Bilirubin 1.6 H 0.2-1.0 mg/dL Aspartate Amino Transf (AST/SGOT) 773 *H 10-37 U/L Alanine Aminotransferase (ALT/SGPT) 868 *H 12-78 U/L Alkaline Phosphatase 163 H 50-136 U/L Total Protein 3.7 L 6.0-8.3 g/dL Albumin 1.5 L 3.5-5.0 g/dL Blood Gas Specimen Type Arterial Arterial Blood pH 7.545 H 7.350-7.450 Arterial Blood Partial Pressure CO2 33 32-45 mmHg Arterial Blood Partial Pressure O2 76.0 L 83.0-108.0 mmHg Arterial Blood HCO3 27.6 21.0-28.0 mmol/L Arterial Blood Oxygen Saturation 95.2 94.0-98.0 % Arterial Blood Base Excess 5.1 H -2.0-3.0 mmol/L Hemoglobin (Blood Gas) 8.8 L 12.0-16.0 g/dL Sodium (Blood Gas) 145 136-145 MMOL/L Bedside Potassium (Blood Gas) 4.3 3.4-4.5 MMOL/L Bedside Chloride (Blood Gas) 109 H 98-107 MMOL/L Bedside Glucose (Blood Gas) 258 H 65-95 MG/DL Bedside Ionized Calcium (Blood Gas) 0.82 L 1.15-1.33 MMOL/L Bedside Lactic Acid (Blood Gas) 3.38 *H 0.36-0.75 MMOL/L Blood Gas Temperature 37.0 35.5-37.0 CELSIUS Blood Gas Respiration Rate 18.0 min. Blood Gas Vent Mode AC ROOM AIR FiO2 40.0 % Blood Gas Tidal Volume 450 ml Blood Gas PEEP 5 cm H2O Blood Gas Specimen Comment DERRICK MOTA RN Test 04/08/25 19:59 04/08/25 04:09 Range/Units Whole Blood Glucose 226 H 70-110 MG/DL Troponin I High Sensitivity 53 *H 4-50 ng/L B-Type Natriuretic Peptide 755 H 0-100 pg/mL ASSESSMENT: Septic shock. Hypoxic respiratory failure, requiring intubation. Anemia, POA requiring blood transfusion. Right retroperitoneal hematoma. Acute on chronic renal failure. Elevated liver enzymes. Morbid obesity. Bilateral pleural effusion. Diabetes mellitus. PLAN: Discontinue vancomycin. Start linezolid 600 mg IV q.12 hours. Continue Meropenem. Continue GI prophylaxis. Currently on vasopressor support. Continue ventilatory support. Continue diuretics. This case was reviewed and discussed with my supervising physician Dr. Rawls and the above assessment and plan was formulated and agreed upon. ATTESTATION BY PHYSICIAN I have seen and examined the patient. I reviewed the documentation, medical decision making, and treatment plan as noted by the mid-level provider above. I agree with the findings and plan of care. CASSY RAWLS MD, [facility] Apr 09, 2025 19:49
--- NOTE | 2025-04-09 21:52 | PN ---
PROGRESS NOTE PROGRESS NOTE DATE OF PROGRESS NOTE: 04/09/25 SUBJECTIVE: No new complaints VITAL SIGNS Vital Signs Date Time Temp Pulse Resp B/P (MAP) Pulse Ox O2 Delivery O2 Flow Rate FiO2 04/09/25 20:00 40 04/09/25 19:17 93 18 04/09/25 18:45 91/60 (70) 100 04/09/25 16:00 98.6 04/09/25 04:00 Ventilator+ 40 ETT Piece+ PHYSICAL EXAM: PHYSICAL EXAM: GENERAL: 84-year-old female who is intubated. HEENT: ET tube, EOMI, Sclera non icteric, moist mucosa NECK: Supple, no JVD, trachea midline LUNGS: Clear breath sounds bilaterally. No wheezes HEART: Irregular rate. Normal S1 and S2, without murmurs ABD: Abdomen soft, nontender. Bowel sounds present EXT: No clubbing cyanosis or edema NEURO: Patient is sedated LABORATORY: Laboratory Result(s) Test 04/09/25 03:04 04/09/25 04:10 04/09/25 08:22 04/09/25 17:45 Blood Gas Specimen Type Arterial Arterial Blood pH 7.545 (7.350-7.450) Arterial Blood Partial Pressure CO2 33 mmHg (32-45) Arterial Blood Partial Pressure O2 76.0 mmHg (83.0-108.0) Arterial Blood HCO3 27.6 mmol/L (21.0-28.0) Arterial Blood Oxygen Saturation 95.2 % (94.0-98.0) Arterial Blood Base Excess 5.1 mmol/L (-2.0-3.0) Hemoglobin (Blood Gas) 8.8 g/dL (12.0-16.0) Sodium (Blood Gas) 145 MMOL/L (136-145) Bedside Potassium (Blood Gas) 4.3 MMOL/L (3.4-4.5) Bedside Chloride (Blood Gas) 109 MMOL/L (98-107) Bedside Glucose (Blood Gas) 258 MG/DL (65-95) Bedside Ionized Calcium (Blood Gas) 0.82 MMOL/L (1.15-1.33) Bedside Lactic Acid (Blood Gas) 3.38 MMOL/L (0.36-0.75) Blood Gas Temperature 37.0 CELSIUS (35.5-37.0) Blood Gas Respiration Rate 18.0 min. Blood Gas Vent Mode AC (ROOM AIR) FiO2 40.0 % Blood Gas Tidal Volume 450 ml Blood Gas PEEP 5 cm H2O Blood Gas Specimen Comment SVETLANA RN ,AL White Blood Count 20.2 K/uL (4.8-10.8) Red Blood Count 2.62 MIL/uL (4.00-5.50) Hemoglobin 8.2 g/dL (12.0-16.0) Hematocrit 24.3 % (36-48) Mean Corpuscular Volume 92.7 fL (79-99) Mean Corpuscular Hemoglobin 31.3 pg (27.0-33.0) Mean Corpuscular Hemoglobin Concent 33.7 g/dL (32.0-36.0) Red Cell Distribution Width 19.1 % (11.0-15.5) Platelet Count 113 K/uL (130-400) Mean Platelet Volume 12.5 fL (7.5-10.5) Immature Granulocyte % (Auto) 0.4 % (0-1) Neutrophils (%) (Auto) 92.8 % (40.0-77.0) Lymphocytes (%) (Auto) 2.6 % (21.0-51.0) Monocytes (%) (Auto) 2.7 % (3.0-13.0) Eosinophils (%) (Auto) 1.2 % (0.0-8.0) Basophils (%) (Auto) 0.3 % (0.0-5.0) Neutrophils # (Auto) 18.7 K/uL (1.8-7.7) Lymphocytes # (Auto) 0.5 K/uL (1.0-4.8) Monocytes # (Auto) 0.6 K/uL (0.1-1.0) Eosinophils # (Auto) 0.24 K/uL (0.00-0.70) Basophils # (Auto) 0.06 K/uL (0.00-0.20) Absolute Immature Granulocyte (auto 0.09 K/uL (0-1) Nucleated Red Blood Cells 3.2 % (0.0-0.19) Prothrombin Time 21.7 SEC (9.6-11.6) 16.8 SEC (9.6-11.6) Prothromb Time International Ratio 2.22 (0.85-1.15) 1.64 (0.85-1.15) Activated Partial Thromboplast Time 46.7 SEC (26.3-35.5) 36.6 SEC (26.3-35.5) Sodium Level 147 mmol/L (136-145) Potassium Level 4.7 mmol/L (3.5-5.1) Chloride Level 107 mmol/L (101-111) Carbon Dioxide Level 32 mmol/L (21-32) Blood Urea Nitrogen 60 mg/dL (7-18) Creatinine 2.4 mg/dL (0.5-1.0) Glomerular Filtration Rate Calc 20 mL/min (>90) Random Glucose 255 mg/dL (70-105) Lactic Acid Level 3.5 mmol/L (0.8-2.5) Total Calcium 5.9 mg/dL (8.5-10.1) Magnesium Level 1.50 mg/dL (1.80-2.40) Total Bilirubin 1.6 mg/dL (0.2-1.0) Aspartate Amino Transf (AST/SGOT) 773 U/L (10-37) Alanine Aminotransferase (ALT/SGPT) 868 U/L (12-78) Alkaline Phosphatase 163 U/L (50-136) Total Protein 3.7 g/dL (6.0-8.3) Albumin 1.5 g/dL (3.5-5.0) Vancomycin Level Trough 14.8 UG/ML (10.0-20.0) INPATIENT MEDS: Current Medications Medications Dose Ordered Sig/Asif Start Time Stop Time Status Last Admin Diazepam 5 mg Q4H PRN 04/06/25 09:00 04/13/25 08:59 04/07/25 15:28 Dextrose 50 ml AD PRN 04/06/25 16:30 05/06/25 16:29 04/07/25 16:56 Glucagon 1 mg AD PRN 04/06/25 16:30 05/06/25 16:29 Dexmedetomidine/ Sodium Chloride 400 mcg PROTOCOL 04/06/25 18:30 05/06/25 18:29 04/09/25 09:22 Vasopressin 40 units/Sodium Chloride 40 ml @ 0 mls/hr PROTOCOL 04/06/25 21:30 05/06/25 21:29 04/07/25 04:33 Phenylephrine HCl 100 mg/Sodium Chloride 250 ml @ 0 mls/hr AD PRN 04/06/25 22:00 05/06/25 21:59 Epinephrine HCl 10 mg/Sodium Chloride 250 ml @ 0 mls/hr PROTOCOL 04/06/25 22:00 05/06/25 21:59 Pantoprazole Sodium 40 mg BID 04/07/25 09:00 05/07/25 08:59 04/09/25 20:22 Norepinephrine Bitartrate 32 mg/ Sodium Chloride 250 ml @ 0 mls/hr PROTOCOL 04/07/25 08:30 05/07/25 08:29 04/08/25 01:59 Ipratropium [place] 0.5 mg [id number] 04/07/25 12:00 05/07/25 11:59 04/09/25 19:16 Midazolam HCl 2 mg Q2HPRN PRN 04/07/25 16:00 05/07/25 15:59 04/07/25 16:05 Fentanyl/Sodium Chloride 250 ml @ 0.1 mls/hr PROTOCOL 04/08/25 02:00 04/13/25 01:59 04/09/25 16:49 Methylprednisolone Sodium Succinate 60 mg Q6H 04/08/25 10:00 05/06/25 21:59 04/09/25 21:08 Meropenem 1 gm Q24H 04/08/25 23:00 04/16/25 10:59 04/08/25 21:51 Furosemide 20 mg Q8H 04/08/25 15:30 05/08/25 15:29 04/09/25 16:46 Magnesium Sulfate 50 ml @ 0 mls/hr PROTOCOL 04/09/25 05:00 05/09/25 04:59 04/09/25 05:17 Calcium Gluconate 1 gm PROTOCOL 04/09/25 05:00 05/09/25 04:59 04/09/25 05:17 Dextrose/Sodium Chloride 1,000 ml @ 75 mls/hr [id number] 04/09/25 10:00 05/09/25 09:59 04/09/25 15:00 Sodium Chloride 500 ml @ 0 mls/hr Q0M 04/09/25 10:00 05/09/25 09:59 04/09/25 10:04 Sodium Chloride 500 ml @ 0 mls/hr Q0M 04/09/25 14:00 05/09/25 13:59 Sodium Chloride 500 ml @ 0 mls/hr Q0M 04/09/25 18:00 05/09/25 17:59 Sodium Chloride 500 ml @ 0 mls/hr Q0M 04/09/25 22:00 05/09/25 21:59 Sodium Chloride 500 ml @ 0 mls/hr Q0M 04/10/25 02:00 05/10/25 01:59 Sodium Chloride 500 ml @ 0 mls/hr Q0M 04/10/25 06:00 05/10/25 05:59 Linezolid 300 ml @ 150 mls/hr Q12H 04/09/25 16:30 04/19/25 16:29 04/09/25 16:46 PLAN: Acute hypoxic respiratory failure Severe sepsis with shock Severe metabolic acidosis Hospital-acquired pneumonia Acute complicated cystitis Severe anemia, requiring transfusion Acute on chronic kidney disease Atrial fibrillation on chronic anticoagulation therapy Dilated cardiomyopathy ejection fraction 35-40% with moderate pulmonary hypotension Remote CVA Hx of Right lower extremity DVT Right knee arthroplasty hx. Plan: Continue adjustments to vent, Solu-Medrol 60 q.6 She is on Merrem and vancomycin Continue with Mycafungin Correcting electrolytes Discontinue Precedex Lactic acid level CT of chest w/o contrast, CT of abdomen and pelvis w/o contrast, CT w/o of right knee. INDERJIT CRISTOBAL MD Apr 09, 2025 21:52
[2025-04-10] VITALS (104 sets, daily range): BP systolic 72–150; BP diastolic 49–140; PULSE 79–111; RESP 14–18; TEMP 98.2–99.1; O2SAT 94–100
[2025-04-10] MEDS: 1/2 NS IV SCH ×2 (02:00→06:08)
[2025-04-10 03:59] LABS: ABG BASE EXCESS 7.6 mmol/L (-2.0-3.0); ABG HCO3 30.0 mmol/L (21.0-28.0); ABG OXYGEN SATURATION 97.7 % (94.0-98.0); ABG PCO2 35 mmHg (32-45); ABG PH 7.552 (7.350-7.450); DEVICE COMMENT MARISA RN, AL; PO2, ARTERIAL BG 89.5 mmHg (83.0-108.0); TEMPERATURE, CELSIUS BG 37.0 CELSIUS (35.5-37.0); VENT MODE, BG AC VC (ROOM AIR)
[2025-04-10 04:15] LABS: PLATELET COUNT (AUTO) 116.0 K/uL (130-400)
[2025-04-10 04:16] LABS: IMMATURE GRANULOCYTE ABSOLUTE 0.15 K/uL (0-1); NUCLEATED RED BLOOD CELLS 3.8 % (0.0-0.19); PLATELET COUNT (AUTO) 113 K/uL (130-400); RED BLOOD CELL COUNT(AUTO) 2.73 MIL/uL (4.00-5.50); RED CELL DISTRIBUTION WIDTH 18.5 % (11.0-15.5); WHITE BLOOD COUNT (AUTO) 19.3 K/uL (4.8-10.8)
[2025-04-10 04:32] LABS: INR 1.89 (0.85-1.15)
[2025-04-10 04:36] LABS: ASPARTATE AMINOTRANSFERASE 276.0 U/L (10-37); CREATININE 2.7 mg/dL (0.5-1.0); GLOMERULAR FILTR. RATE CALC 17.0 mL/min (>90); GLUCOSE,RANDOM 221.0 mg/dL (70-105); PHOSPHORUS 5.4 mg/dL (2.5-4.9); SODIUM SERUM 143.0 mmol/L (136-145); TOTAL PROTEIN, SERUM 4.6 g/dL (6.0-8.3)
[2025-04-10 04:41] LABS: UREA NITROGEN, BLOOD 76.0 mg/dL (7-18)
--- NOTE | 2025-04-10 11:52 | NUR ---
[facility] ICU Skin Assessment: Patient assessed by wound healing team. Patient with no wounds or skin breakdown noted. Assessment and recommendations provided to primary nurse. Education provided.
[2025-04-10] MEDS: DOXYCYCLINE 100MG+NS 250ML 250 ML IV SCH (11:58)
--- NOTE | 2025-04-10 12:20 | NUR ---
NURSING NOTE PER DR. YOUNGBLOOD OG TUBE IN SATISFACTORY POSITION ON CXR, ADVANCE FOR OPTIMAL POSITIONING. OG TUBE ADVANCED 10CM MARKED AT 55CM. POSITION VERIFIED WITH AIR BOLUS AND ASPIRATION.
--- NOTE | 2025-04-10 12:56 | HMCIMG ---
CHEST 1VW REASON: PNA COMPARISON: Prior chest radiograph from 04/09/2025 is available. FINDINGS: Single view of the chest was obtained. The study is limited due to poor inspiratory radiograph patient is rotated.. The lung [place] are clear. There is no evidence of any vascular congestion. There is mild cardiomegaly with left ventricular contour. There is a support lines including endotracheal tube and nasogastric tube are in satisfactory position. There is a left-sided pacemaker with lead in right atrium and right ventricle.. Mediastinum and bony thorax appear unremarkable. The bony thorax demonstrate mild osteopenia. IMPRESSION: 1. Mild cardiomegaly 2. Support lines satisfactory position 3. Limited study with no evidence of airspace consolidation or pulmonary venous congestion.
--- NOTE | 2025-04-10 13:11 | PN ---
[facility] PROGRESS NOTE Date Patient Seen: Apr 10, 2025 Time of Visit: 12:48 Supervising Physician: SHADE YOUNGBLOOD MD Primary Care Physician: JESUS MENDOZA MD Outpatient Specialists: [ ] Inpatient Consults: BIS PROBLEM LIST: Retroperitoneal hemorrhage newly diagnosed via CT scan of the abdomen Acute hypoxic respiratory failure present on admission currently on mechanical ventilatory support via endotracheal tube Severe sepsis with shock Severe metabolic acidosis Hospital-acquired pneumonia Acute complicated cystitis Severe anemia, requiring transfusion Acute on chronic kidney disease Atrial fibrillation on chronic anticoagulation therapy Dilated cardiomyopathy ejection fraction 35-40% with moderate pulmonary hypotension Remote CVA Hx of Right lower extremity DVT History of right TKA 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 Patient remains on Precedex drip at this time, as per surgical team no surgical intervention recommended for the peritoneal hematoma. Patient continues with bradycardia No fevers, no chills, no nausea or vomiting reported. Patient with worsening renal function, creatinine is now up to 2.7 with a BUN of 76 WBC in the [id number] Family at bedside REVIEW OF SYSTEMS: unable to obtained due to patient condition. Currently on mechanical ventilatory support, paralyzed and sedated. PHYSICAL EXAM: GENERAL: 84-year-old female who is intubated. HEENT: ET tube, EOMI, Sclera non icteric, moist mucosa NECK: Supple, no JVD, trachea midline LUNGS: Clear breath sounds bilaterally. No wheezes HEART: Irregular rate. Normal S1 and S2, without murmurs ABD: Abdomen soft, nontender. Bowel sounds present EXT: No clubbing cyanosis or edema NEURO: Patient is sedated Vital Signs (last 8hr) Date Time Temp Pulse Resp B/P (MAP) Pulse Ox O2 Delivery O2 Flow Rate FiO2 04/10/25 12:17 80 40 04/10/25 11:26 91 18 04/10/25 09:45 98 18 142/68 (92) 100 04/10/25 09:30 79 40 04/10/25 09:30 93 131/66 (87) 100 04/10/25 09:27 40 04/10/25 09:15 99 18 139/69 (92) 100 04/10/25 09:00 94 18 123/63 (83) 100 04/10/25 08:45 98 18 129/63 (85) 100 04/10/25 08:30 95 18 132/64 (86) 100 04/10/25 08:15 95 18 134/66 (88) 100 04/10/25 08:00 99 18 115/58 (77) 100 04/10/25 08:00 99 Ventilator+ 40 N/A ETT Piece+ 04/10/25 08:00 98.4 04/10/25 07:45 93 18 126/61 (82) 100 04/10/25 07:30 98 18 129/64 (85) 100 04/10/25 07:15 101 14 142/73 (96) 100 04/10/25 07:00 95 18 124/59 (80) 100 04/10/25 06:45 98 18 119/59 (79) 100 04/10/25 06:17 93 18 04/10/25 06:15 108 18 121/64 (83) 100 04/10/25 06:13 93 40 04/10/25 06:00 94 18 134/64 (87) 100 04/10/25 05:45 103 18 131/66 (87) 100 04/10/25 05:30 94 18 148/140 (143) 100 04/10/25 05:15 109 18 106/70 (82) 100 04/10/25 05:00 100 18 150/77 (101) 98 LABS: Hematology Labs: Test 04/10/25 03:51 Range/Units White Blood Count 19.3 H 4.8-10.8 K/uL Red Blood Count 2.73 L 4.00-5.50 MIL/uL Hemoglobin 8.6 L 12.0-16.0 g/dL Hematocrit 25.8 L 36-48 % Mean Corpuscular Volume 94.5 79-99 fL Mean Corpuscular Hemoglobin 31.5 27.0-33.0 pg Mean Corpuscular Hemoglobin Concent 33.3 32.0-36.0 g/dL Red Cell Distribution Width 18.5 H 11.0-15.5 % Platelet Count 116 L 130-400 K/uL Mean Platelet Volume 12.7 H 7.5-10.5 fL Immature Granulocyte % (Auto) 0.8 0-1 % Neutrophils (%) (Auto) 93.2 H 40.0-77.0 % Lymphocytes (%) (Auto) 1.6 L 21.0-51.0 % Monocytes (%) (Auto) 3.6 3.0-13.0 % Eosinophils (%) (Auto) 0.6 0.0-8.0 % Basophils (%) (Auto) 0.2 0.0-5.0 % Neutrophils # (Auto) 18.0 H 1.8-7.7 K/uL Lymphocytes # (Auto) 0.3 L 1.0-4.8 K/uL Monocytes # (Auto) 0.7 0.1-1.0 K/uL Eosinophils # (Auto) 0.12 0.00-0.70 K/uL Basophils # (Auto) 0.03 0.00-0.20 K/uL Absolute Immature Granulocyte (auto 0.15 0-1 K/uL Nucleated Red Blood Cells 3.8 H 0.0-0.19 % Chemistry Labs: Test 04/10/25 11:24 04/10/25 03:51 04/09/25 04:10 Range/Units Whole Blood Glucose 201 H 70-110 MG/DL Sodium Level 143 136-145 mmol/L Potassium Level 4.5 3.5-5.1 mmol/L Chloride Level 101 101-111 mmol/L Carbon Dioxide Level 29 21-32 mmol/L Blood Urea Nitrogen 76 *H 7-18 mg/dL Creatinine 2.7 H 0.5-1.0 mg/dL Glomerular Filtration Rate Calc 17 >90 mL/min Random Glucose 221 H 70-105 mg/dL Total Calcium 6.5 L 8.5-10.1 mg/dL Phosphorus Level 5.4 H 2.5-4.9 mg/dL Magnesium Level 1.90 1.80-2.40 mg/dL Total Bilirubin 2.1 #H 0.2-1.0 mg/dL Aspartate Amino Transf (AST/SGOT) 276 H 10-37 U/L Alanine Aminotransferase (ALT/SGPT) 584 #H 12-78 U/L Alkaline Phosphatase 181 H 50-136 U/L Total Protein 4.6 #L 6.0-8.3 g/dL Albumin 1.9 #L 3.5-5.0 g/dL Lactic Acid Level 3.5 H 0.8-2.5 mmol/L Coagulation Labs: Test 04/10/25 03:51 Range/Units Prothrombin Time 18.8 H 9.6-11.6 SEC Prothromb Time International Ratio 1.89 H 0.85-1.15 Activated Partial Thromboplast Time 40.0 H 26.3-35.5 SEC Fibrinogen 236 180-350 mg/dL D-Dimer Quantitative (PE/DVT) 4615 *H 0-500 ng/mL DIAGNOSTICS / RADIOLOGY RESULTS: Chest x-ray shows some interstitial changes with some small bilateral infiltrates, no effusions noted. PLAN Patient critically ill on mechanical ventilator support We will try to wean off Precedex Start fentanyl drip instead Start Lasix drip at 10 milligrams/hour Start dobutamine drip at 2.5 mcg Start doxycycline for the next five days to cover for atypical pneumonia Patient now with multi organ dysfunction with worsening renal failure and no urinary output Prognosis extremely poor, family updated. We will continue medical management in the ICU. NEURO: Minimize central acting medications as possible. Fall Precautions. Well lighted room through the day and minimize interruptions through the night to prevent acute delirium. PULMONARY: On mechanical ventilator support via endotracheal tube at this time CARDIOVASCULAR: Follow hemodynamics. Titrate vasopressor to keep MAP >65 or systolic blood pressure >95mmHg DIPS: [ Levophed ] GI & NUTRITION: Continue nutritional support Aspirations precautions Prokinetic agents and laxatives as needed KIDNEYS & ELECTROLYTES: Strict monitoring of intake and output Daily weights Avoid nephrotoxic agents Monitor electrolytes and replace as needed Goal urine output of 30mL/hr or 0.5mL/kg/hr ENDOCRINE: Maintain blood glucose between 100-180 at all times. Insulin sliding scale for blood glucose management INFECTIOUS DISEASE: Trend temperature. [place]-culture if febrile. Micro: [Pending results ] Antibiotics: [ As per I and D] HEMATOLOGY & COAGULATION: Monitor H&H. Keep Hgb > 7 Transfuse 1 unit of PRBC for Hgb < 7 Transfuse 1 pack of platelets of platelets < 20, 000 Watch for any signs and symptoms of bleeding SKIN: Pressure ulcer prevention per facility protocol Rehab: PT/OT Prophylaxis: GI: [ Protonix 40 mg IV b.i.d.] DVT: [SCDs to the lower extremities ] Code Status: Full Resuscitation Disposition: [Continue medical management in the ICU ] Total critical care time 35 minutes I personally scribed for SHADE YOUNGBLOOD MD ([email or web address]) on 04/10/25 at 13:11. Electronically submitted by Jesus Camargo ([email or web address]). SHADE YOUNGBLOOD MD Apr 10, 2025 13:11
--- NOTE | 2025-04-10 15:31 | PN ---
This is an 84-year-old female consulted to surgery for concerns of retroperitoneal hematoma Interval history: This 64-year-old female seen in ICU No significant changes reported from yesterday Patient remains critically ill on mechanical ventilator intubated Hemoglobin has actually elevated currently 8.6 White count trending down but still elevated at 19 Physical exam GENERAL: 84-year-old female who is intubated. HEENT: ET tube, EOMI, Sclera non icteric, moist mucosa NECK: Supple, no JVD, trachea midline LUNGS: Clear breath sounds bilaterally. No wheezes HEART: Irregular rate. Normal S1 and S2, without murmurs ABD: Abdomen soft, nontender. Bowel sounds present EXT: No clubbing cyanosis or edema NEURO: Patient is sedated Assessment : This is a84 year female consulted to surgery concerns retroperitoneal hematoma Plan: At this point in time with a hemoglobin remaining stable no immediate surgical intervention planned Patient to continue with current ICU management For now Surgical team sign off and to be reconsulted if any status and patient's changes Dr. Barajas to be updated in patient's status and nursing report any further acute events Surgical case has been discussed with my supervising physician in the above plan was formulated and agreed upon We appreciate the hospitalist team for us to participate in patient's care. Greater than 45 minutes of time spent patient, reviewing chart, working on documentation Vitals/Labs Vital Signs Date Time Temp Pulse Resp B/P (MAP) Pulse Ox O2 Delivery O2 Flow Rate FiO2 04/10/25 14:38 93 40 04/10/25 12:30 18 109/66 (80) 100 04/10/25 12:00 Ventilator+ 40 ETT Piece+ 04/10/25 12:00 98.2 Laboratory Tests 04/10/25 03:51 Medications Current Medications Ceftriaxone Sodium 1 gm ONCE ONCE IVPB Last administered on 04/06/25at 10:33; Start 04/06/25 at 08:30; Stop 04/06/25 at 08:32; Status DC Azithromycin 250 ml @ 250 mls/hr ONCE IVPB Last administered on 04/06/25at 10:45; Start 04/06/25 at 09:00; Stop 04/06/25 at 10:00; Status DC Albuterol 2 udvial ONCE ONCE IH Last administered on 04/06/25at 10:26; Start 04/06/25 at 08:30; Stop 04/06/25 at 08:32; Status DC Methylprednisolone Sodium Succinate 125 mg ONCE ONCE IVP Last administered on 04/06/25at 10:48; Start 04/06/25 at 08:30; Stop 04/06/25 at 08:32; Status DC Sodium Chloride 1,000 ml @ 0 mls/hr ONCE ONCE IV Last administered on 04/06/25at 08:30; Start 04/06/25 at 08:30; Stop 04/06/25 at 08:32; Status DC Diazepam 5 mg Q4H PRN IV Last administered on 04/07/25at 15:28; Start 04/06/25 at 09:00; Stop 04/13/25 at 08:59 Diazepam 10 mg STK-MED ONCE .ROUTE; Start 04/06/25 at 08:35; Stop 04/06/25 at 08:35; Status DC Ketamine HCl 50 mg STK-MED ONCE .ROUTE; Start 04/06/25 at 08:47; Stop 04/06/25 at 08:47; Status DC Norepinephrine 250 ml @ As Directed STK-MED ONCE IV; Start 04/06/25 at 08:59; Stop 04/06/25 at 08:59; Status DC Fentanyl Citrate 100 ml @ 2.5 mls/hr PROTOCOL IV Last administered on 04/08/25at 01:39; Start 04/06/25 at 09:30; Stop 04/08/25 at 01:51; Status DC Midazolam HCl 100 ml ONCE ONCE IV Last administered on 04/06/25at 09:31; Start 04/06/25 at 09:30; Stop 04/06/25 at 09:31; Status DC Vancomycin HCl 1 each AD IV; Start 04/06/25 at 10:00; Stop 04/09/25 at 13:28; Status DC Albuterol 1 UDVIAL [id number] IH; Start 04/06/25 at 12:00; Stop 04/06/25 at 11:12; Status DC Pharmacy Profile Note 1 each Q12H9 MISC; Start 04/06/25 at 21:00; Stop 04/06/25 at 10:19; Status DC Sodium Chloride 1,000 ml @ 100 mls/hr Q10H IV Last administered on 04/06/25at 10:51; Start 04/06/25 at 10:00; Stop 04/06/25 at 11:12; Status DC Norepinephrine 250 ml @ 0 mls/hr PROTOCOL IV Last administered on 04/06/25at 21:18; Start 04/06/25 at 10:30; Stop 04/06/25 at 21:28; Status DC Vancomycin HCl 250 ml @ 125 mls/hr ONCE ONCE IV Last administered on 04/06/25at 14:30; Start 04/06/25 at 10:30; Stop 04/06/25 at 12:29; Status DC Meropenem 1 gm Q12H IVPB Last administered on 04/07/25at 23:48; Start 04/06/25 at 11:00; Stop 04/08/25 at 07:56; Status DC Ketamine HCl 100 mg ONCE ONCE IV Last administered on 04/06/25at 10:28; Start 04/06/25 at 08:50; Stop 04/06/25 at 10:19; Status DC Vancomycin HCl 750 mg Q24H IVPB Last administered on 04/07/25at 08:58; Start 04/07/25 at 09:00; Stop 04/08/25 at 07:56; Status DC Sodium Chloride 1,000 ml @ 100 mls/hr Q10H IV; Start 04/06/25 at 11:30; Stop 04/07/25 at 12:44; Status DC Dextrose 50 ml STK-MED ONCE IV Last administered on 04/06/25at 16:24; Start 04/06/25 at 16:22; Stop 04/06/25 at 16:22; Status DC Dextrose 50 ml AD PRN IV Last administered on 04/07/25at 16:56; Start 04/06/25 at 16:30; Stop 05/06/25 at 16:29 Glucagon 1 mg AD PRN IM; Start 04/06/25 at 16:30; Stop 05/06/25 at 16:29 Lactated Ringer's 1,000 ml BOLUS IV; Start 04/06/25 at 16:30; Stop 04/08/25 at 07:52; Status DC Enoxaparin Sodium 30 mg DAILY SQ; Start 04/07/25 at 08:00; Stop 04/07/25 at 00:16; Status DC Sodium Bicarbonate 100 meq ONCE ONCE IV Last administered on 04/06/25at 17:57; Start 04/06/25 at 18:00; Stop 04/06/25 at 18:01; Status DC Dexmedetomidine/ Sodium Chloride 400 mcg PROTOCOL IV Last administered on 04/09/25at 09:22; Start 04/06/25 at 18:30; Stop 04/10/25 at 11:09; Status DC Dexmedetomidine/ Sodium Chloride 400 mcg STK-MED ONCE IV Last administered on 04/06/25at 18:20; Start 04/06/25 at 18:06; Stop 04/06/25 at 18:07; Status DC Dextrose 1,000 ml @ 75 mls/hr [id number] IV Last administered on 04/06/25at 20:29; Start 04/06/25 at 20:30; Stop 04/07/25 at 12:45; Status DC Sodium Chloride 500 ml @ 500 mls/hr Q1H IV Last administered on 04/06/25at 21:19; Start 04/06/25 at 21:00; Stop 04/07/25 at 02:12; Status DC Vasopressin 40 units/Sodium Chloride 40 ml @ 0 mls/hr PROTOCOL IV Last administered on 04/07/25at 04:33; Start 04/06/25 at 21:30; Stop 05/06/25 at 21:29 Norepinephrine Bitartrate 32 mg/ Sodium Chloride 250 ml @ 0 mls/hr Q0M STAT IV Last administered on 04/06/25at 21:50; Start 04/06/25 at 21:20; Stop 04/06/25 at 21:31; Status DC Phenylephrine HCl 100 mg/Sodium Chloride 250 ml @ 0 mls/hr AD PRN IV; Start 04/06/25 at 22:00; Stop 05/06/25 at 21:59 Epinephrine HCl 10 mg/Sodium Chloride 250 ml @ 0 mls/hr PROTOCOL IV; Start 04/06/25 at 22:00; Stop 05/06/25 at 21:59 Ipratropium [place] 0.5 mg [id number] IH; Start 04/07/25 at 22:10; Stop 04/07/25 at 11:41; Status DC Methylprednisolone Sodium Succinate 60 mg Q6H IVP Last administered on 04/08/25at 03:43; Start 04/06/25 at 22:00; Stop 04/08/25 at 07:50; Status DC Albumin Human 50 ml @ 0 mls/hr ONCE ONCE IV Last administered on 04/06/25at 23:13; Start 04/06/25 at 22:30; Stop 04/06/25 at 22:31; Status DC Sodium Bicarbonate 150 meq ONCE ONCE IV Last administered on 04/06/25at 23:13; Start 04/06/25 at 23:00; Stop 04/06/25 at 23:07; Status DC Calcium Gluconate 1 gm ONCE ONCE IV Last administered on 04/06/25at 23:14; Start 04/06/25 at 23:00; Stop 04/06/25 at 23:06; Status DC Ipratropium [place] 0.5 mg STK-MED ONCE IH Last administered on 04/06/25at 23:39; Start 04/06/25 at 22:49; Stop 04/06/25 at 22:49; Status DC Pantoprazole Sodium 40 mg ONCE ONCE IVP Last administered on 04/07/25at 01:02; Start 04/07/25 at 00:30; Stop 04/07/25 at 00:31; Status DC Pantoprazole Sodium 40 mg BID IVP Last administered on 04/10/25at 08:54; Start 04/07/25 at 09:00; Stop 05/07/25 at 08:59 Sodium Bicarbonate 150 meq/Dextrose 1,000 ml @ 50 mls/hr Q20H IVP Last administered on 04/07/25at 01:02; Start 04/07/25 at 00:30; Stop 04/08/25 at 11:02; Status DC Norepinephrine Bitartrate 32 mg/ Sodium Chloride 250 ml @ 0 mls/hr PROTOCOL IV Last administered on 04/08/25at 01:59; Start 04/07/25 at 08:30; Stop 05/07/25 at 08:29 Sodium Bicarbonate 200 meq ONCE ONCE IV Last administered on 04/07/25at 08:56; Start 04/07/25 at 08:30; Stop 04/07/25 at 08:34; Status DC Sodium Bicarbonate 50 ml @ As Directed STK-MED ONCE .ROUTE; Start 04/07/25 at 08:30; Stop 04/07/25 at 08:30; Status DC Sodium Bicarbonate 100 meq ONCE ONCE IV Last administered on 04/07/25at 08:57; Start 04/07/25 at 09:00; Stop 04/07/25 at 09:01; Status DC Sodium Bicarbonate 50 ml @ As Directed STK-MED ONCE .ROUTE; Start 04/07/25 at 09:04; Stop 04/07/25 at 09:04; Status DC Ipratropium [place] 0.5 mg [id number] IH Last administered on 04/10/25at 11:21; Start 04/07/25 at 12:00; Stop 05/07/25 at 11:59 Sodium Chloride 154 meq/Dextrose 1,000 ml @ 50 mls/hr Q20H IV Last administered on 04/07/25at 13:10; Start 04/07/25 at 13:00; Stop 04/08/25 at 07:58; Status DC Sodium Bicarbonate 200 meq STAT ONCE IV Last administered on 04/07/25at 16:02; Start 04/07/25 at 16:00; Stop 04/07/25 at 16:01; Status DC Midazolam HCl 2 mg Q2HPRN PRN IVP Last administered on 04/07/25at 16:05; Start 04/07/25 at 16:00; Stop 05/07/25 at 15:59 Sodium Bicarbonate 100 meq ONCE ONCE IV Last administered on 04/07/25at 18:47; Start 04/07/25 at 18:30; Stop 04/07/25 at 18:37; Status DC Calcium Gluconate 1 gm ONCE ONCE IV; Start 04/07/25 at 18:35; Stop 04/07/25 at 18:36; Status UNV Calcium Gluconate 1 gm/Sodium Chloride 100 ml @ 0 mls/hr ONCE ONCE IV Last administered on 04/07/25at 18:53; Start 04/07/25 at 19:00; Stop 04/07/25 at 19:01; Status DC Sodium Bicarbonate 50 meq ONCE ONCE IV Last administered on 04/07/25at 20:57; Start 04/07/25 at 20:00; Stop 04/07/25 at 20:01; Status DC Calcium Gluconate 1 gm ONCE ONCE IV; Start 04/07/25 at 20:00; Stop 04/07/25 at 20:01; Status UNV Calcium Gluconate 1 gm/Sodium Chloride 100 ml @ 100 mls/hr ONCE ONCE IV Last administered on 04/07/25at 20:58; Start 04/07/25 at 20:30; Stop 04/07/25 at 21:29; Status DC Fentanyl/Sodium Chloride 250 ml @ 0.1 mls/hr PROTOCOL IV Last administered on 04/09/25at 16:49; Start 04/08/25 at 02:00; Stop 04/13/25 at 01:59 Methylprednisolone Sodium Succinate 60 mg Q6H IVP Last administered on 04/10/25at 08:54; Start 04/08/25 at 10:00; Stop 05/06/25 at 21:59 Vancomycin HCl 750 mg Q48H IVPB Last administered on 04/09/25at 09:56; Start 04/09/25 at 09:00; Stop 04/09/25 at 13:28; Status DC Meropenem 1 gm Q24H IVPB Last administered on 04/10/25at 00:08; Start 04/08/25 at 23:00; Stop 04/16/25 at 10:59 Pharmacy Profile Note 1 each ONCE MISC; Start 04/08/25 at 08:30; Stop 04/08/25 at 08:51; Status DC Sodium Chloride 1,000 ml @ 500 mls/hr Q2H IV; Start 04/08/25 at 08:30; Stop 04/08/25 at 08:51; Status DC Micafungin Sodium 100 ml @ 100 mls/hr Q24H IV Last administered on 04/08/25at 09:19; Start 04/08/25 at 10:00; Stop 04/09/25 at 09:59; Status DC Sodium Chloride 500 ml @ 500 mls/hr Q1H IV Last administered on 04/08/25at 09:19; Start 04/08/25 at 08:48; Stop 04/08/25 at 11:04; Status DC Rocuronium [place] 50 mg STK-MED ONCE IV; Start 04/06/25 at 10:04; Stop 04/08/25 at 10:05; Status DC Sodium Bicarbonate 150 meq/Dextrose/Water 1,000 ml @ 100 mls/hr Q10H IVP; Start 04/08/25 at 11:00; Stop 04/08/25 at 11:07; Status DC Sodium Bicarbonate 150 meq/Dextrose 1,000 ml @ 100 mls/hr Q10H IVP Last administered on 04/08/25at 21:59; Start 04/08/25 at 11:30; Stop 04/09/25 at 09:46; Status DC Pharmacy Profile Note 1 each ONCE MISC; Start 04/08/25 at 13:30; Stop 04/08/25 at 11:16; Status DC Sodium Chloride 500 ml @ 500 mls/hr Q1H ONCE IV Last administered on 04/08/25at 13:56; Start 04/08/25 at 14:30; Stop 04/08/25 at 15:29; Status DC Sodium Chloride 500 ml @ 500 mls/hr Q1H ONCE IV Last administered on 04/08/25at 18:30; Start 04/08/25 at 19:30; Stop 04/08/25 at 20:29; Status DC Sodium Chloride 500 ml @ 500 mls/hr Q1H ONCE IV Last administered on 04/09/25at 00:43; Start 04/09/25 at 00:30; Stop 04/09/25 at 01:29; Status DC Furosemide 20 mg Q8H IV Last administered on 04/10/25at 08:54; Start 04/08/25 at 15:30; Stop 04/10/25 at 11:09; Status DC Calcium Gluconate 1 gm ONCE IVPB; Start 04/08/25 at 17:00; Stop 05/08/25 at 16:59; Status UNV Calcium Gluconate 1 gm/Sodium Chloride 100 ml @ 0 mls/hr ONCE ONCE IV Last administered on 04/08/25at 17:12; Start 04/08/25 at 17:00; Stop 04/08/25 at 17:01; Status DC Magnesium Sulfate 50 ml @ 0 mls/hr PROTOCOL IV Last administered on 04/09/25at 05:17; Start 04/09/25 at 05:00; Stop 05/09/25 at 04:59 Calcium Gluconate 1 gm PROTOCOL IVPB Last administered on 04/09/25at 05:17; Start 04/09/25 at 05:00; Stop 05/09/25 at 04:59 Sodium Chloride 50 ml AD IV; Start 04/09/25 at 05:00; Stop 04/09/25 at 05:12; Status DC Pharmacy Profile Note 1 each ONCE MISC; Start 04/09/25 at 10:00; Stop 04/09/25 at 09:58; Status DC Dextrose/Sodium Chloride 1,000 ml @ 75 mls/hr [id number] IV Last administered on 04/09/25at 15:00; Start 04/09/25 at 10:00; Stop 05/09/25 at 09:59 Sodium Chloride 500 ml @ 0 mls/hr Q0M IV Last administered on 04/09/25at 10:04; Start 04/09/25 at 10:00; Stop 04/10/25 at 11:59; Status DC Sodium Chloride 500 ml @ 0 mls/hr Q0M IV; Start 04/09/25 at 14:00; Stop 04/10/25 at 11:59; Status DC Sodium Chloride 500 ml @ 0 mls/hr Q0M IV; Start 04/09/25 at 18:00; Stop 04/10/25 at 11:59; Status DC Sodium Chloride 500 ml @ 0 mls/hr Q0M IV Last administered on 04/09/25at 22:00; Start 04/09/25 at 22:00; Stop 04/10/25 at 11:59; Status DC Sodium Chloride 500 ml @ 0 mls/hr Q0M IV Last administered on 04/10/25at 02:00; Start 04/10/25 at 02:00; Stop 04/10/25 at 11:59; Status DC Sodium Chloride 500 ml @ 0 mls/hr Q0M IV Last administered on 04/10/25at 06:08; Start 04/10/25 at 06:00; Stop 04/10/25 at 11:59; Status DC Pharmacy Profile Note 1 each ONCE MISC; Start 04/09/25 at 13:30; Stop 04/09/25 at 13:37; Status DC Linezolid 300 ml @ 150 mls/hr Q12H IV; Start 04/09/25 at 14:00; Stop 04/09/25 at 16:14; Status DC Linezolid 300 ml @ 150 mls/hr Q12H IV Last administered on 04/10/25at 04:50; Start 04/09/25 at 16:30; Stop 04/19/25 at 16:29 Furosemide 100 mg/ Sodium Chloride 100 ml @ 10 mls/hr PROTOCOL IV Last administered on 04/10/25at 12:10; Start 04/10/25 at 11:30; Stop 05/10/25 at 11:29 Dobutamine HCl/ Dextrose 250 ml @ 15.173 mls/ hr PROTOCOL IV Last administered on 04/10/25at 12:13; Start 04/10/25 at 11:30; Stop 05/10/25 at 11:29 Doxycycline Hyclate 250 ml @ 125 mls/hr Q12H IV Last administered on 04/10/25at 11:58; Start 04/10/25 at 11:30; Stop 04/20/25 at 11:29 Insulin Human Regular INSULIN SLIDING SCAL... Q6H6 SQ; Start 04/10/25 at 12:00; Stop 05/10/25 at 11:59 Thiamine HCl 100 mg DAILY IM; Start 04/11/25 at 09:00; Stop 05/11/25 at 08:59 Vitamin B Complex/ Vit C/Folic Acid 1 cap DAILY PO; Start 04/11/25 at 09:00; Stop 05/11/25 at 08:59 SANAZ MONTERROSO Jr. PAC Apr 10, 2025 15:31
--- NOTE | 2025-04-10 15:45 | CONS ---
NEPHROLOGY CONSULTATION NOTE Date/Time Patient Seen: Apr 10, 2025 1430 Reason for Consultation: Renal failure HISTORY OF PRESENT ILLNESS: This is an 84-year-old female who was sent to the Emergency Room from the [facility] and the patient has shortness of breath and chest pain. The patient is intubated, hypoxic. CT scan showed Large right retroperitoneal hematoma extending along the iliopsoas and into the right iliacus, displacing the right kidney. She continues to be intubated Continues to require vasopressors to maintain blood pressure She has been in the hospital for several days and was noted with worsening renal failure Toady we are consulted for renal failure Renal function remains elevated Electrolytes are stable. Nurse reports decreased urine output. She was seen in the ICU Family at the bedside Condition is critical and guarded REVIEW OF SYSTEMS: Difficult to obtain given status of the patient who remains intubated mechanically ventilated PAST MEDICAL HISTORY: Chronic kidney disease, atrial fibrillation, CVA, diabetes mellitus type PAST SURGICAL HISTORY: Right total knee arthroplasty revision, pacemaker, bariatric surgery, cholecystectomy PAST SOCIAL HISTORY: Denies use of alcohol, tobacco or illicit drugs FAMILY HISTORY: Noncontributory PHYSICAL EXAM: General: acutely ill, sedated, intubated, and mechanically ventilated HEENT: head is atraumatic, pupils equal and reactive, ET tube in place Neck: supple, no masses, no lymphadenopathy, no thyromegaly, no JVD Lungs: decreased breath sounds bilaterally, symmetrical chest movement Cardio: regular rate, S1 and S2 normal, no rub or gallop Abdomen: soft, non tender, no distension, no organomegaly Extremities: trace edema bilateral lower extremities, no cyanosis or clubbing Skin: no rashes or suspicious lesions Neuro: sedated MEDICATIONS: [ ] Current Medications Medications (Trade) Dose Ordered Sig/Asif Route PRN Reason Start Time Stop Time Status Last Admin Dose Admin Albuterol (DUOneb) 1 UDVIAL [id number] IH 04/06/25 12:00 04/06/25 11:12 DC Azithromycin 250 ml @ 250 mls/hr ONCE IVPB 04/06/25 09:00 04/06/25 10:00 DC 04/06/25 10:45 250 MLS/HR Calcium Gluconate (Calcium Gluc 1gm Vial) 1 gm ONCE IVPB 04/08/25 17:00 05/08/25 16:59 UNV Calcium Gluconate (Calcium Gluc 1gm Vial) 1 gm PROTOCOL IVPB 04/09/25 05:00 05/09/25 04:59 04/09/25 05:17 1 GM Dexmedetomidine/ Sodium Chloride (PRECEdex 400MCG/ 100ML-NS) 400 mcg PROTOCOL IV 04/06/25 18:30 04/10/25 11:09 DC 04/09/25 09:22 400 MCG Dextrose 1,000 ml @ 75 mls/hr [id number] IV 04/06/25 20:30 04/07/25 12:45 DC 04/06/25 20:29 75 MLS/HR Dextrose (D50w) 50 ml AD PRN IV HYPOGLYCEMIA PROTOCOL 04/06/25 16:30 05/06/25 16:29 04/07/25 16:56 50 ML Dextrose/Sodium Chloride 1,000 ml @ 75 mls/hr [id number] IV 04/09/25 10:00 05/09/25 09:59 04/09/25 15:00 75 MLS/HR Diazepam (VALium 5 MG/ML 2 ML SYG) 5 mg Q4H PRN IV ANXIETY 04/06/25 09:00 04/13/25 08:59 04/07/25 15:28 5 MG Dobutamine HCl/ Dextrose 250 ml @ 15.173 mls/ hr PROTOCOL IV 04/10/25 11:30 05/10/25 11:29 04/10/25 12:13 15.173 MLS/HR Doxycycline Hyclate 250 ml @ 125 mls/hr Q12H IV 04/10/25 11:30 04/20/25 11:29 04/10/25 11:58 125 MLS/HR Enoxaparin Sodium (Lovenox) 30 mg DAILY SQ 04/07/25 08:00 04/07/25 00:16 DC Epinephrine HCl 10 mg/Sodium Chloride 250 ml @ 0 mls/hr PROTOCOL IV 04/06/25 22:00 05/06/25 21:59 Fentanyl Citrate 100 ml @ 2.5 mls/hr PROTOCOL IV 04/06/25 09:30 04/08/25 01:51 DC 04/08/25 01:39 2.5 MLS/HR Fentanyl/Sodium Chloride 250 ml @ 0.1 mls/hr PROTOCOL IV 04/08/25 02:00 04/13/25 01:59 04/09/25 16:49 0.1 MLS/HR Furosemide (LASix 20MG VIAL) 20 mg Q8H IV 04/08/25 15:30 04/10/25 11:09 DC 04/10/25 08:54 20 MG Furosemide 100 mg/ Sodium Chloride 100 ml @ 10 mls/hr PROTOCOL IV 04/10/25 11:30 05/10/25 11:29 04/10/25 12:10 10 MLS/HR Glucagon (Glucagon 1mg Kit) 1 mg AD PRN IM HYPOGLYCEMIA PROTOCOL 04/06/25 16:30 05/06/25 16:29 Insulin Human Regular (humuLIN R 100 UNIT/ML 3ML) INSULIN SLIDING SCAL... Q6H6 SQ 04/10/25 12:00 05/10/25 11:59 Ipratropium Lind (AtrovENT UD) 0.5 mg [id number] IH 04/07/25 12:00 05/07/25 11:59 04/10/25 11:21 0.5 MG Ipratropium Lind (AtrovENT UD) 0.5 mg [id number] IH 04/07/25 22:10 04/07/25 11:41 DC Lactated Ringer's (Lactated Ringers 1000ml) 1,000 ml BOLUS IV 04/06/25 16:30 04/08/25 07:52 DC Linezolid 300 ml @ 150 mls/hr Q12H IV 04/09/25 14:00 04/09/25 16:14 DC Linezolid 300 ml @ 150 mls/hr Q12H IV 04/09/25 16:30 04/19/25 16:29 04/10/25 04:50 150 MLS/HR Magnesium Sulfate 50 ml @ 0 mls/hr PROTOCOL IV 04/09/25 05:00 05/09/25 04:59 04/09/25 05:17 0 MLS/HR Meropenem (Merrem 1gm) 1 gm Q12H IVPB 04/06/25 11:00 04/08/25 07:56 DC 04/07/25 23:48 1 GM Meropenem (Merrem 1gm) 1 gm Q24H IVPB 04/08/25 23:00 04/16/25 10:59 04/10/25 00:08 1 GM Methylprednisolone Sodium Succinate (Solu-medROL 40MG) 60 mg Q6H IVP 04/08/25 10:00 05/06/25 21:59 04/10/25 08:54 60 MG Methylprednisolone Sodium Succinate (Solu-medROL 125MG) 60 mg Q6H IVP 04/06/25 22:00 04/08/25 07:50 DC 04/08/25 03:43 60 MG Micafungin Sodium 100 ml @ 100 mls/hr Q24H IV 04/08/25 10:00 04/09/25 09:59 DC 04/08/25 09:19 100 MLS/HR Midazolam HCl (Versed) 2 mg Q2HPRN PRN IVP agitation 04/07/25 16:00 05/07/25 15:59 04/07/25 16:05 2 MG Norepinephrine 250 ml @ 0 mls/hr PROTOCOL IV 04/06/25 10:30 04/06/25 21:28 DC 04/06/25 21:18 263.253 MLS/HR Norepinephrine Bitartrate 32 mg/ Sodium Chloride 250 ml @ 0 mls/hr PROTOCOL IV 04/07/25 08:30 05/07/25 08:29 04/08/25 01:59 0 MLS/HR Norepinephrine Bitartrate 32 mg/ Sodium Chloride 250 ml @ 0 mls/hr Q0M STAT IV 04/06/25 21:20 04/06/25 21:31 DC 04/06/25 21:50 0 MLS/HR Pantoprazole Sodium (PROTonix 40MG INJ) 40 mg BID IVP 04/07/25 09:00 05/07/25 08:59 04/10/25 08:54 40 MG Pharmacy Profile Note (Pharmacy Communication) 1 each ONCE MISC 04/08/25 08:30 04/08/25 08:51 DC Pharmacy Profile Note (Pharmacy Communication) 1 each ONCE MISC 04/08/25 13:30 04/08/25 11:16 DC Pharmacy Profile Note (Pharmacy Communication) 1 each ONCE MISC 04/09/25 10:00 04/09/25 09:58 DC Pharmacy Profile Note (Pharmacy Communication) 1 each ONCE MISC 04/09/25 13:30 04/09/25 13:37 DC Pharmacy Profile Note (Pharmacy Communication) 1 each Q12H9 MISC 04/06/25 21:00 04/06/25 10:19 DC Phenylephrine HCl 100 mg/Sodium Chloride 250 ml @ 0 mls/hr AD PRN IV TITRATE 04/06/25 22:00 05/06/25 21:59 Sodium Bicarbonate 150 meq/Dextrose 1,000 ml @ 50 mls/hr Q20H IVP 04/07/25 00:30 04/08/25 11:02 DC 04/07/25 01:02 50 MLS/HR Sodium Bicarbonate 150 meq/Dextrose 1,000 ml @ 100 mls/hr Q10H IVP 04/08/25 11:30 04/09/25 09:46 DC 04/08/25 21:59 100 MLS/HR Sodium Bicarbonate 150 meq/Dextrose/Water 1,000 ml @ 100 mls/hr Q10H IVP 04/08/25 11:00 04/08/25 11:07 DC Sodium Chloride 500 ml @ 500 mls/hr Q1H IV 04/06/25 21:00 04/07/25 02:12 DC 04/06/25 21:19 500 MLS/HR Sodium Chloride 500 ml @ 500 mls/hr Q1H IV 04/08/25 08:48 04/08/25 11:04 DC 04/08/25 09:19 500 MLS/HR Sodium Chloride 500 ml @ 0 mls/hr Q0M IV 04/09/25 10:00 04/10/25 11:59 DC 04/09/25 10:04 500 MLS/HR Sodium Chloride 500 ml @ 0 mls/hr Q0M IV 04/09/25 14:00 04/10/25 11:59 DC Sodium Chloride 500 ml @ 0 mls/hr Q0M IV 04/09/25 18:00 04/10/25 11:59 DC Sodium Chloride 500 ml @ 0 mls/hr Q0M IV 04/09/25 22:00 04/10/25 11:59 DC 04/09/25 22:00 999 MLS/HR Sodium Chloride 500 ml @ 0 mls/hr Q0M IV 04/10/25 02:00 04/10/25 11:59 DC 04/10/25 02:00 999 MLS/HR Sodium Chloride 500 ml @ 0 mls/hr Q0M IV 04/10/25 06:00 04/10/25 11:59 DC 04/10/25 06:08 999 MLS/HR Sodium Chloride 1,000 ml @ 100 mls/hr Q10H IV 04/06/25 10:00 04/06/25 11:12 DC 04/06/25 10:51 100 MLS/HR Sodium Chloride 1,000 ml @ 100 mls/hr Q10H IV 04/06/25 11:30 04/07/25 12:44 DC Sodium Chloride 1,000 ml @ 500 mls/hr Q2H IV 04/08/25 08:30 04/08/25 08:51 DC Sodium Chloride (NS 50ml) 50 ml AD IV 04/09/25 05:00 04/09/25 05:12 DC Sodium Chloride 154 meq/Dextrose 1,000 ml @ 50 mls/hr Q20H IV 04/07/25 13:00 04/08/25 07:58 DC 04/07/25 13:10 50 MLS/HR Thiamine HCl (Vitamin B-1) 100 mg DAILY IM 04/11/25 09:00 05/11/25 08:59 Vancomycin HCl (Vancomycin 750mg) 750 mg Q24H IVPB 04/07/25 09:00 04/08/25 07:56 DC 04/07/25 08:58 750 MG Vancomycin HCl (Vancomycin 750mg) 750 mg Q48H IVPB 04/09/25 09:00 04/09/25 13:28 DC 04/09/25 09:56 750 MG Vancomycin HCl (Vancomycin Protocol) 1 each AD IV 04/06/25 10:00 04/09/25 13:28 DC Vasopressin 40 units/Sodium Chloride 40 ml @ 0 mls/hr PROTOCOL IV 04/06/25 21:30 05/06/25 21:29 04/07/25 04:33 1.8 MLS/HR Vitamin B Complex/ Vit C/Folic Acid (Nephrovite Tablet) 1 cap DAILY PO 04/11/25 09:00 05/11/25 08:59 Vital Signs (last 8hr) Date Time Temp Pulse Resp B/P (MAP) Pulse Ox O2 Delivery O2 Flow Rate FiO2 04/10/25 14:38 93 40 04/10/25 12:30 91 18 109/66 (80) 100 04/10/25 12:17 80 40 04/10/25 12:15 91 18 87/57 (67) 100 04/10/25 12:00 99 Ventilator+ 40 N/A ETT Piece+ 04/10/25 12:00 99 18 138/110 (119) 99 04/10/25 12:00 98.2 04/10/25 11:45 91 18 134/67 (89) 100 04/10/25 11:30 91 18 129/61 (83) 100 04/10/25 11:26 91 18 04/10/25 11:15 91 18 120/59 (79) 100 04/10/25 11:00 91 18 132/66 (88) 100 04/10/25 10:45 91 18 117/56 (76) 100 04/10/25 10:30 91 18 100/51 (67) 100 04/10/25 10:15 93 18 114/55 (74) 100 04/10/25 10:00 109 18 118/63 (81) 100 04/10/25 09:45 98 18 142/68 (92) 100 04/10/25 09:30 79 40 04/10/25 09:30 93 131/66 (87) 100 04/10/25 09:27 40 04/10/25 09:15 99 18 139/69 (92) 100 04/10/25 09:00 94 18 123/63 (83) 100 04/10/25 08:45 98 18 129/63 (85) 100 04/10/25 08:30 95 18 132/64 (86) 100 04/10/25 08:15 95 18 134/66 (88) 100 04/10/25 08:00 99 18 115/58 (77) 100 04/10/25 08:00 99 Ventilator+ 40 N/A ETT Piece+ 04/10/25 08:00 98.4 04/10/25 07:45 93 18 126/61 (82) 100 DIAGNOSTICS / RADIOLOGY: [place] [id number] [address] IMAGING REPORT Signed PATIENT: LORE OCONNELL MR#: [id number] : 1940 SEX: F AGE: 84 LOCATION: 2BH ORDER 99 STATUS: ADM IN REPORT#: [id number] SERVICE 0600 REASON: PNA ORDERING PHYSICIAN: ZENOBIA PEREZ MD PROCEDURE: CXR1VW - CHEST 1VW CHEST 1VW REASON: PNA COMPARISON: Prior chest radiograph from 04/09/2025 is available. FINDINGS: Single view of the chest was obtained. The study is limited due to poor inspiratory radiograph patient is rotated.. The lung [place] are clear. There is no evidence of any vascular congestion. There is mild cardiomegaly with left ventricular contour. There is a support lines including endotracheal tube and nasogastric tube are in satisfactory position. There is a left-sided pacemaker with lead in right atrium and right ventricle.. Mediastinum and bony thorax appear unremarkable. The bony thorax demonstrate mild osteopenia. IMPRESSION: 1. Mild cardiomegaly 2. Support lines satisfactory position 3. Limited study with no evidence of airspace consolidation or pulmonary venous congestion. DICTATED BY: JADEN CHAVIRA MD DATE: 04/10/251251 ELECTRONICALLY SIGNED BY: JADEN CHAVIRA MD DATE: 04/10/251255 PATIENT: LORE OCONNELL MR#: [id number] : 1940 SEX: F AGE: 84 LOCATION: 2BH ORDER 6 STATUS: ADM IN REPORT#: [id number] SERVICE 0813 REASON: septic/SOB ORDERING PHYSICIAN: ZENOBIA PEREZ MD PROCEDURE: CAP WO - CT CHEST/ABD/PELV W/O CONTRAST ADDENDUM REPORT ADDENDUM: Results were shared by telephone at 09:07 PM on 04-08-2025 and acknowledged by the Patient's Nurse Ms. Sue Quinones /[place] EXAM: CT Chest, Abdomen and Pelvis without Intravenous Contrast CLINICAL HISTORY: evaluation of sepsis. TECHNIQUE: Axial computed tomography images of the chest, abdomen and pelvis without intravenous contrast. Dose reduction technique was used including one or more of the following: automated exposure control, adjustment of mA and kV according to patient size, and/or iterative reconstruction. Total exam DLP is 1117 mGy x cm. CONTRAST: None. COMPARISON: Prior chest radiograph dated 04/08/2025, acquired at 04:52 hours. FINDINGS: CHEST: LUNGS: Endotracheal tube with its tip positioned 3.5 cm short of juanito. Moderate sized bilateral pleural effusions with atelectasis/consolidation of the lung bases. Multifocal areas of ground-glass opacities, mosaic attenuation are present in the remainder of the lung parenchyma bilaterally. PLEURAL SPACES: Moderate sized bilateral pleural effusions. No pneumothorax. HEART AND MEDIASTINUM: Left chest wall pacemaker with electrodes terminating in the lumen of the coronary sinus and the right heart chambers. Atheromatous calcification of the aortic arch and the coronary arteries. Right sided PICC line visualized with its tip terminating in the right brachiocephalic vein. Feeding tube visualized with its tip terminating at the gastroesophageal junction. Mild cardiomegaly. Coronary arterial calcifications present. Mitral and aortic valve annulus calcifications. No significant pericardial effusion. LYMPH NODES: No lymphadenopathy. ABDOMEN AND PELVIS: LIVER: Ill-defined hypodense area measuring 2 x 2.1 cm in the segment VII of the subcapsular region of the right hepatic lobe, without areas of calcification or fat in it. GALLBLADDER AND BILE DUCTS: Gallbladder is surgically absent. No biliary ductal dilatation. PANCREAS: Pancreas is atrophic. No pancreatic ductal dilatation or calculi. SPLEEN: Spleen is atrophic and shrunken with areas of capsular calcifications. ADRENAL GLANDS: Unremarkable. KIDNEYS, URETERS, AND BLADDER: Bilateral intrarenal segmental arterial calcifications. Multiple right sided renal calculi, measuring up to 4 mm. A Mcdowell's catheter is appropriately positioned in the bladder lumen. No hydronephrosis. No ureteral or bladder calculi. STOMACH AND BOWEL: Evidence of prior surgical intervention involving the stomach, incompletely evaluated due to lack of optimal luminal distension. Gastric bypass surgery status with appropriate position of the gastrojejunal anastomosis. No obstruction. No wall thickening. No CT evidence of colitis or acute diverticulitis. APPENDIX: No CT evidence for appendicitis. PERITONEUM: No free fluid. No free air. LYMPH NODES: No lymphadenopathy. REPRODUCTIVE: Uterus is not distinctly visualized. VASCULATURE: The abdominal aorta demonstrates atheromatous calcification without aneurysm or dissection. BONES AND SOFT TISSUES: Diffuse body wall edema. Right retroperitoneal space hyperdense collection, measuring approximately 14 x 7 x 25 cm, visualized on the anterior aspect of the iliopsoas. It is extending toward the right groin. The right iliacus muscle also appears bulky with similar hyperdense contents, likely representing hematoma. The collection is visualized in the retroperitoneal compartment and is displacing the right kidney anteriorly. Severe osteopenia. Chronic appearing compression deformities of multiple thoracolumbar vertebrae, including T6, T8, T9, T11, T1. The maximum vertebral height loss is visualized at T11 level with increased thoracolumbar junction kyphosis. Grade I anterolisthesis of L4 over L5 without spondylolysis. Dextroscoliosis of the thoracolumbar spine curvature. IMPRESSION: 1. Findings consistent with aspiration pneumonitis. Compared with the prior chest radiograph dated 04/08/2025, acquired at 04:52 hours, the pulmonary parenchymal findings are stable. Right PICC line and the feeding tube need to be repositioned. 2. Large right retroperitoneal hematoma extending along the iliopsoas and into the right iliacus, displacing the right kidney. 3. Several stable chronic and incidental findings are noted, as detailed in the body of the report. /[place] DICTATED BY: HENRIK FOX MD DATE: 04/08/252128 ELECTRONICALLY SIGNED BY: DATE: EXAM: CT Chest, Abdomen and Pelvis without Intravenous Contrast CLINICAL HISTORY: evaluation of sepsis. TECHNIQUE: Axial computed tomography images of the chest, abdomen and pelvis without intravenous contrast. Dose reduction technique was used including one or more of the following: automated exposure control, adjustment of mA and kV according to patient size, and/or iterative reconstruction. Total exam DLP is 1117 mGy x cm. CONTRAST: None. COMPARISON: Prior chest radiograph dated 04/08/2025, acquired at 04:52 hours. FINDINGS: CHEST: LUNGS: Endotracheal tube with its tip positioned 3.5 cm short of juanito. Moderate sized bilateral pleural effusions with atelectasis/consolidation of the lung bases. Multifocal areas of ground-glass opacities, mosaic attenuation are present in the remainder of the lung parenchyma bilaterally. PLEURAL SPACES: Moderate sized bilateral pleural effusions. No pneumothorax. HEART AND MEDIASTINUM: Left chest wall pacemaker with electrodes terminating in the lumen of the coronary sinus and the right heart chambers. Atheromatous calcification of the aortic arch and the coronary arteries. Right sided PICC line visualized with its tip terminating in the right brachiocephalic vein. Feeding tube visualized with its tip terminating at the gastroesophageal junction. Mild cardiomegaly. Coronary arterial calcifications present. Mitral and aortic valve annulus calcifications. No significant pericardial effusion. LYMPH NODES: No lymphadenopathy. ABDOMEN AND PELVIS: LIVER: Ill-defined hypodense area measuring 2 x 2.1 cm in the segment VII of the subcapsular region of the right hepatic lobe, without areas of calcification or fat in it. GALLBLADDER AND BILE DUCTS: Gallbladder is surgically absent. No biliary ductal dilatation. PANCREAS: Pancreas is atrophic. No pancreatic ductal dilatation or calculi. SPLEEN: Spleen is atrophic and shrunken with areas of capsular calcifications. ADRENAL GLANDS: Unremarkable. KIDNEYS, URETERS, AND BLADDER: Bilateral intrarenal segmental arterial calcifications. Multiple right sided renal calculi, measuring up to 4 mm. A Mcdowell's catheter is appropriately positioned in the bladder lumen. No hydronephrosis. No ureteral or bladder calculi. STOMACH AND BOWEL: Evidence of prior surgical intervention involving the stomach, incompletely evaluated due to lack of optimal luminal distension. Gastric bypass surgery status with appropriate position of the gastrojejunal anastomosis. No obstruction. No wall thickening. No CT evidence of colitis or acute diverticulitis. APPENDIX: No CT evidence for appendicitis. PERITONEUM: No free fluid. No free air. LYMPH NODES: No lymphadenopathy. REPRODUCTIVE: Uterus is not distinctly visualized. VASCULATURE: The abdominal aorta demonstrates atheromatous calcification without aneurysm or dissection. BONES AND SOFT TISSUES: Diffuse body wall edema. Right retroperitoneal space hyperdense collection, measuring approximately 14 x 7 x 25 cm, visualized on the anterior aspect of the iliopsoas. It is extending toward the right groin. The right iliacus muscle also appears bulky with similar hyperdense contents, likely representing hematoma. The collection is visualized in the retroperitoneal compartment and is displacing the right kidney anteriorly. Severe osteopenia. Chronic appearing compression deformities of multiple thoracolumbar vertebrae, including T6, T8, T9, T11, T1. The maximum vertebral height loss is visualized at T11 level with increased thoracolumbar junction kyphosis. Grade I anterolisthesis of L4 over L5 without spondylolysis. Dextroscoliosis of the thoracolumbar spine curvature. IMPRESSION: 1. Findings consistent with aspiration pneumonitis. Compared with the prior chest radiograph dated 04/08/2025, acquired at 04:52 hours, the pulmonary parenchymal findings are stable. Right PICC line and the feeding tube need to be repositioned. 2. Large right retroperitoneal hematoma extending along the iliopsoas and into the right iliacus, displacing the right kidney. 3. Several stable chronic and incidental findings are noted, as detailed in the body of the report. /[place] DICTATED BY: HENRIK FOX MD DATE: 04/08/252056 ELECTRONICALLY SIGNED BY: HENRIK FOX MD DATE: 04/08/252056 PATIENT: LORE OCONNELL MR#: [id number] : 1940 SEX: F AGE: 84 LOCATION: [facility] ORDER 1 STATUS: ADM IN REPORT#: [id number] SERVICE 0 REASON: HF ORDERING PHYSICIAN: BOYD GUERRA PAC PROCEDURE: ECHO CMP - ECHO 2-D COMPLETE APPROVED REPORT EXAM: Two-dimensional and M-mode echocardiogram with Doppler and color Doppler. INDICATION ICD: Elevated liver enzymes 2D Dimensions RVDd 5.0 cm LVEF(%) 54.9 (>50%) LA ESV INDEX (BP) 85.96 mL/m2 IVSd 0.8 (0.7-1.1cm) FS(%) 29 % LVDd 5.1 (3.8-5.6cm) LA (2D) 6.2 (1.6-4.0cm) PWd 1.2 (0.7-1.1cm) Ao Root(2D) 3.0 (2.0-3.7cm) IVSs 1.0 cm LVOT diam 2.2 (1.8-2.4cm) LVDs 3.6 (2.5-4.0cm) PWs 1.5 cm M-Mode Dimensions EPSS 0.9 cm LA (MM) 7.0 (1.6-4.0cm) Ao Root(MM) 3.4 (2.0-3.7cm) Aortic Valve AoV Vmax 1.7 m/s Ao Peak GR 11.9 mmHg LVOT Vmax 0.8 m/s AoV VTI 0.3 m Ao Mean GR 6.7 mmHg LVOT VTI 0.12 m VERONICA (VMAX) 1.64 cm2 Al P1/2T 575 ms VERONICA (VTI) 1.5 cm2 Mitral Valve MV E Vmax 81.2 cm/s DECEL Time 181 ms MV A Vmax 73.1 cm/s P 1/2 T 42 ms E/A ratio 1.1 MVA (PHT) 5.2 cm2 TDI E/E' Medial 14.3 E/E' Lateral 13.4 Medial E' Peak V 5.67 cm/s Lateral E' Peak V 6.04 cm/s Pulmonary Valve PV Vmax 1.2 m/s PI End Ximena. Jonel 142.2 cm/s PV Mean GR 2.7 mmHg PV Peak GR 5.6 mmHg Tricuspid Valve TR Vmax 2.6 m/s RAP (EST) 3 mmHg RVSP 30.0 mmHg TR Peak GR 27.0 mmHg Left Ventricle The left ventricle is normal size. There is global hypokinesis of the left ventricle. There is normal left ventricular wall thickness. LVEF is 30-35%. E/A flow is fused. Right Ventricle The right ventricle is severely dilated. Right ventricular systolic function is mildly reduced. Device lead is present in the right ventricle. Atria The left atrium is severely dilated. LASVI 86mL/m The interatrial septum is intact with no evidence for an atrial septal defect by color. Evidence of increased left atrial pressure with the atrial septum bowed to the right. The right atrium is severely dilated. Aortic Valve Aortic valve is trileaflet, mildly sclerotic and thickened but opens well. Mild aortic regurgitation is present. There is no aortic valvular stenosis. Mitral Valve The mitral valve is thickened. There is mild mitral valve regurgitation noted. There is no mitral valve stenosis. Tricuspid Valve The tricuspid valve is normal in structure. There is no tricuspid valve regurgitation noted. RVSP 30 mmHg Pulmonic Valve The pulmonary valve is normal in structure. There is trace of pulmonic valvular regurgitation. Great Vessels The aortic root is normal in size. The IVC is normal in size and collapses >50% with inspiration. Pericardium There is small pericardial effusion seen posteriorly. Other Information Quality : Adequate Rhythm : NSR Conclusion There is global hypokinesis of the left ventricle. LVEF is 30-35%. The right ventricle is severely dilated and hypokinetic. Device lead is present in the right ventricle. Left atrium is severely dilated. LASVI 86mL/m. No atrial septal defect by color. Evidence of increased left atrial pressure with the atrial septum bowed to the right. Mild aortic regurgitation. Thckened mitral valve leaflets. Mild mitral valve regurgitation. Small pericardial effusion seen posteriorly. DICTATED BY: KASH DUONG DO DATE: 04/07/25 0929 ELECTRONICALLY SIGNED BY: KASH DUONG DO DATE: 04/07/25 0836 LABORATORY: [ ] Hematology Labs: Test 04/10/25 03:51 Range/Units White Blood Count 19.3 H 4.8-10.8 K/uL Red Blood Count 2.73 L 4.00-5.50 MIL/uL Hemoglobin 8.6 L 12.0-16.0 g/dL Hematocrit 25.8 L 36-48 % Mean Corpuscular Volume 94.5 79-99 fL Mean Corpuscular Hemoglobin 31.5 27.0-33.0 pg Mean Corpuscular Hemoglobin Concent 33.3 32.0-36.0 g/dL Red Cell Distribution Width 18.5 H 11.0-15.5 % Platelet Count 116 L 130-400 K/uL Mean Platelet Volume 12.7 H 7.5-10.5 fL Immature Granulocyte % (Auto) 0.8 0-1 % Neutrophils (%) (Auto) 93.2 H 40.0-77.0 % Lymphocytes (%) (Auto) 1.6 L 21.0-51.0 % Monocytes (%) (Auto) 3.6 3.0-13.0 % Eosinophils (%) (Auto) 0.6 0.0-8.0 % Basophils (%) (Auto) 0.2 0.0-5.0 % Neutrophils # (Auto) 18.0 H 1.8-7.7 K/uL Lymphocytes # (Auto) 0.3 L 1.0-4.8 K/uL Monocytes # (Auto) 0.7 0.1-1.0 K/uL Eosinophils # (Auto) 0.12 0.00-0.70 K/uL Basophils # (Auto) 0.03 0.00-0.20 K/uL Absolute Immature Granulocyte (auto 0.15 0-1 K/uL Nucleated Red Blood Cells 3.8 H 0.0-0.19 % Chemistry Labs: Test 04/10/25 11:24 04/10/25 03:51 04/09/25 04:10 Range/Units Whole Blood Glucose 201 H 70-110 MG/DL Sodium Level 143 136-145 mmol/L Potassium Level 4.5 3.5-5.1 mmol/L Chloride Level 101 101-111 mmol/L Carbon Dioxide Level 29 21-32 mmol/L Blood Urea Nitrogen 76 *H 7-18 mg/dL Creatinine 2.7 H 0.5-1.0 mg/dL Glomerular Filtration Rate Calc 17 >90 mL/min Random Glucose 221 H 70-105 mg/dL Total Calcium 6.5 L 8.5-10.1 mg/dL Phosphorus Level 5.4 H 2.5-4.9 mg/dL Magnesium Level 1.90 1.80-2.40 mg/dL Total Bilirubin 2.1 #H 0.2-1.0 mg/dL Aspartate Amino Transf (AST/SGOT) 276 H 10-37 U/L Alanine Aminotransferase (ALT/SGPT) 584 #H 12-78 U/L Alkaline Phosphatase 181 H 50-136 U/L Total Protein 4.6 #L 6.0-8.3 g/dL Albumin 1.9 #L 3.5-5.0 g/dL Lactic Acid Level 3.5 H 0.8-2.5 mmol/L Coagulation Labs: Test 04/10/25 03:51 Range/Units Prothrombin Time 18.8 H 9.6-11.6 SEC Prothromb Time International Ratio 1.89 H 0.85-1.15 Activated Partial Thromboplast Time 40.0 H 26.3-35.5 SEC Fibrinogen 236 180-350 mg/dL D-Dimer Quantitative (PE/DVT) 4615 *H 0-500 ng/mL ASSESSMENT: Acute on chronic kidney disease Anemia Retroperitoneal hemorrhage newly diagnosed via CT scan of the abdomen Acute hypoxic respiratory failure present on admission currently on mechanical ventilatory support via endotracheal tube Severe sepsis with shock Severe metabolic acidosis Hospital-acquired pneumonia Acute complicated cystitis Atrial fibrillation on chronic anticoagulation therapy Dilated cardiomyopathy ejection fraction 35-40% with moderate pulmonary hypotension Remote CVA Hx of Right lower extremity DVT History of right TKA Suspected AICD malfunction Status post AICD PLAN: Labs, diagnostic, radiologic exams reviewed and interpreted by myself and supervising physician. We have reviewed external records in detail Order UA, urine electrolytes, urine creatinine, urine osmolality Start thiamine 100 mg IV daily, Nephro-Ashanti one tab p.o. daily Draw labs in pediatric tubes Require close monitoring of renal function and electrolytes Order CBC, CMP, uric acid, complete iron panel, ferritin and electrolytes in am Continue with antibiotics IV pressors as needed Monitor blood pressure adjust medication doses as needed Avoid hypotensive episodes May use Dilaudid 0.5 mg IV every 6 hours as needed for severe pain Monitor blood sugars Strict intake, output, and daily weight should be monitored Please renally adjust medications Avoid nephrotoxic and nonsteroidal drugs Avoid contrast if possible Will continue to monitor renal function, anemia, electrolytes Treatment plan discussed with patient Questions were answered We have discussed with the other team physicians in detail about the care plan We will continue to monitor the patient closely Thank you for allowing us to participate in the care of this patient Total critical care time spent with patient, nursing staff, critical care team over 35 minutes ATTESTATION BY PHYSICIAN I have seen and examined the patient. I reviewed the documentation, medical decision making, and treatment plan as noted by the mid-level provider above. I agree with the findings and plan of care. BREANA YUSUF MD, [facility] Apr 10, 2025 15:45 BREANA YUSUF MD Apr 10, 2025 20:17
[2025-04-10 16:05] LABS: ADD UA MICROSCOPIC YES; APPEARANCE,URINE TURBID (CLEAR); GLUCOSE, URINE (UA) NEGATIVE (NEGATIVE); LEUKOCYTE ESTERASE ,URINE NEGATIVE Leu/uL (NEGATIVE); NITRATE,URINE NEGATIVE (NEGATIVE); OCCULT BLOOD,URINE LARGE (NEGATIVE)
[2025-04-10 16:16] LABS: SQUAMOUS EPITHELIAL CELL,UR None Seen /HPF (0-2)
--- NOTE | 2025-04-10 18:39 | NUR ---
NEPRO TUBE FEEDS REQUESTED FROM DIETARY @7555. THEY HAVE NOT BEEN RECEIVED... DIETARY NOT ANSWERING PHONE. Addendum: 04/10/25 at 4 by LISBET LOPEZ RN RN tube feed received
--- NOTE | 2025-04-10 20:06 | PN ---
PROGRESS NOTE PROGRESS NOTE DATE OF PROGRESS NOTE: 04/10/25 SUBJECTIVE: No new complaints VITAL SIGNS Vital Signs Date Time Temp Pulse Resp B/P (MAP) Pulse Ox O2 Delivery O2 Flow Rate FiO2 04/10/25 18:34 93 18 04/10/25 18:29 40 04/10/25 18:00 99.1 04/10/25 18:00 118/63 (81) 100 04/10/25 16:00 Ventilator+ 40 ETT Piece+ PHYSICAL EXAM: PHYSICAL EXAM: GENERAL: 84-year-old female who is intubated. HEENT: ET tube, EOMI, Sclera non icteric, moist mucosa NECK: Supple, no JVD, trachea midline LUNGS: Clear breath sounds bilaterally. No wheezes HEART: Irregular rate. Normal S1 and S2, without murmurs ABD: Abdomen soft, nontender. Bowel sounds present EXT: No clubbing cyanosis or edema NEURO: Patient is sedated LABORATORY: Laboratory Result(s) Test 04/10/25 03:51 04/10/25 03:57 04/10/25 11:24 04/10/25 14:45 White Blood Count 19.3 K/uL (4.8-10.8) Red Blood Count 2.73 MIL/uL (4.00-5.50) Hemoglobin 8.6 g/dL (12.0-16.0) Hematocrit 25.8 % (36-48) Mean Corpuscular Volume 94.5 fL (79-99) Mean Corpuscular Hemoglobin 31.5 pg (27.0-33.0) Mean Corpuscular Hemoglobin Concent 33.3 g/dL (32.0-36.0) Red Cell Distribution Width 18.5 % (11.0-15.5) Platelet Count 116 K/uL (130-400) Mean Platelet Volume 12.7 fL (7.5-10.5) Immature Granulocyte % (Auto) 0.8 % (0-1) Neutrophils (%) (Auto) 93.2 % (40.0-77.0) Lymphocytes (%) (Auto) 1.6 % (21.0-51.0) Monocytes (%) (Auto) 3.6 % (3.0-13.0) Eosinophils (%) (Auto) 0.6 % (0.0-8.0) Basophils (%) (Auto) 0.2 % (0.0-5.0) Neutrophils # (Auto) 18.0 K/uL (1.8-7.7) Lymphocytes # (Auto) 0.3 K/uL (1.0-4.8) Monocytes # (Auto) 0.7 K/uL (0.1-1.0) Eosinophils # (Auto) 0.12 K/uL (0.00-0.70) Basophils # (Auto) 0.03 K/uL (0.00-0.20) Absolute Immature Granulocyte (auto 0.15 K/uL (0-1) Nucleated Red Blood Cells 3.8 % (0.0-0.19) Prothrombin Time 18.8 SEC (9.6-11.6) Prothromb Time International Ratio 1.89 (0.85-1.15) Activated Partial Thromboplast Time 40.0 SEC (26.3-35.5) Fibrinogen 236 mg/dL (180-350) D-Dimer Quantitative (PE/DVT) 4615 ng/mL (0-500) Sodium Level 143 mmol/L (136-145) Potassium Level 4.5 mmol/L (3.5-5.1) Chloride Level 101 mmol/L (101-111) Carbon Dioxide Level 29 mmol/L (21-32) Blood Urea Nitrogen 76 mg/dL (7-18) Creatinine 2.7 mg/dL (0.5-1.0) Glomerular Filtration Rate Calc 17 mL/min (>90) Random Glucose 221 mg/dL (70-105) Total Calcium 6.5 mg/dL (8.5-10.1) Phosphorus Level 5.4 mg/dL (2.5-4.9) Magnesium Level 1.90 mg/dL (1.80-2.40) Total Bilirubin 2.1 mg/dL (0.2-1.0) Aspartate Amino Transf (AST/SGOT) 276 U/L (10-37) Alanine Aminotransferase (ALT/SGPT) 584 U/L (12-78) Alkaline Phosphatase 181 U/L (50-136) Total Protein 4.6 g/dL (6.0-8.3) Albumin 1.9 g/dL (3.5-5.0) Blood Gas Specimen Type Arterial Arterial Blood pH 7.552 (7.350-7.450) Arterial Blood Partial Pressure CO2 35 mmHg (32-45) Arterial Blood Partial Pressure O2 89.5 mmHg (83.0-108.0) Arterial Blood HCO3 30.0 mmol/L (21.0-28.0) Arterial Blood Oxygen Saturation 97.7 % (94.0-98.0) Arterial Blood Base Excess 7.6 mmol/L (-2.0-3.0) Blood Gas Temperature 37.0 CELSIUS (35.5-37.0) Blood Gas Respiration Rate 18.0 min. Blood Gas Vent Mode AC VC (ROOM AIR) FiO2 40.0 % Blood Gas Tidal Volume 450 ml Blood Gas PEEP 5 cm H2O Blood Gas Specimen Comment MERVIN RN, [place] Whole Blood Glucose 201 MG/DL (70-110) Urine Color LIGHT-ORANGE (YELLOW) Urine Appearance TURBID (CLEAR) Urine pH 5.5 (5.0-8.0) Urine Specific [place] 1.013 (1.001-1.031) Urine Protein 50 mg/dL (NEGATIVE) Urine Glucose (UA) NEGATIVE mg/dL (NEGATIVE) Urine Ketones NEGATIVE mg/dL (NEGATIVE) Urine Occult Blood LARGE (NEGATIVE) Urine Nitrate NEGATIVE (NEGATIVE) Urine Bilirubin NEGATIVE mg/dL (NEGATIVE) Urine Urobilinogen 0.2 mg/dL (0.2-1.0) Urine Leukocyte Esterase NEGATIVE Nicole/uL Urine RBC >100 /HPF (0-1) Urine WBC 2-5 /HPF (0-1) Urine Squamous Epithelial Cells None Seen /HPF (0-2) Urine Bacteria Few /HPF (None Seen) Urine Random Sodium 49 mmol/l (40-220) Urine Random Potassium 54 mmol/L (25-125) Urine Random Chloride 72 mmol/L (110-250) Test 04/10/25 17:19 Whole Blood Glucose 237 MG/DL (70-110) INPATIENT MEDS: Current Medications Medications Dose Ordered Sig/Asif Start Time Stop Time Status Last Admin Diazepam 5 mg Q4H PRN 04/06/25 09:00 04/13/25 08:59 04/07/25 15:28 Dextrose 50 ml AD PRN 04/06/25 16:30 05/06/25 16:29 04/07/25 16:56 Glucagon 1 mg AD PRN 04/06/25 16:30 05/06/25 16:29 Vasopressin 40 units/Sodium Chloride 40 ml @ 0 mls/hr PROTOCOL 04/06/25 21:30 05/06/25 21:29 04/07/25 04:33 Phenylephrine HCl 100 mg/Sodium Chloride 250 ml @ 0 mls/hr AD PRN 04/06/25 22:00 05/06/25 21:59 Epinephrine HCl 10 mg/Sodium Chloride 250 ml @ 0 mls/hr PROTOCOL 04/06/25 22:00 05/06/25 21:59 Pantoprazole Sodium 40 mg BID 04/07/25 09:00 05/07/25 08:59 04/10/25 08:54 Norepinephrine Bitartrate 32 mg/ Sodium Chloride 250 ml @ 0 mls/hr PROTOCOL 04/07/25 08:30 05/07/25 08:29 04/08/25 01:59 Ipratropium [place] 0.5 mg [id number] 04/07/25 12:00 05/07/25 11:59 04/10/25 19:46 Midazolam HCl 2 mg Q2HPRN PRN 04/07/25 16:00 05/07/25 15:59 04/07/25 16:05 Fentanyl/Sodium Chloride 250 ml @ 0.1 mls/hr PROTOCOL 04/08/25 02:00 04/13/25 01:59 04/10/25 17:08 Methylprednisolone Sodium Succinate 60 mg Q6H 04/08/25 10:00 05/06/25 21:59 04/10/25 16:49 Meropenem 1 gm Q24H 04/08/25 23:00 04/16/25 10:59 04/10/25 00:08 Magnesium Sulfate 50 ml @ 0 mls/hr PROTOCOL 04/09/25 05:00 05/09/25 04:59 04/09/25 05:17 Calcium Gluconate 1 gm PROTOCOL 04/09/25 05:00 05/09/25 04:59 04/09/25 05:17 Dextrose/Sodium Chloride 1,000 ml @ 75 mls/hr [id number] 04/09/25 10:00 05/09/25 09:59 04/09/25 15:00 Linezolid 300 ml @ 150 mls/hr Q12H 04/09/25 16:30 04/19/25 16:29 04/10/25 16:47 Furosemide 100 mg/ Sodium Chloride 100 ml @ 10 mls/hr PROTOCOL 04/10/25 11:30 05/10/25 11:29 04/10/25 12:10 Dobutamine HCl/ Dextrose 250 ml @ 15.173 mls/ hr PROTOCOL 04/10/25 11:30 05/10/25 11:29 04/10/25 12:13 Doxycycline Hyclate 250 ml @ 125 mls/hr Q12H 04/10/25 11:30 04/20/25 11:29 04/10/25 11:58 Insulin Human Regular INSULIN SLIDING SCAL... Q6H6 04/10/25 12:00 05/10/25 11:59 04/10/25 17:58 Thiamine HCl 100 mg DAILY 04/11/25 09:00 05/11/25 08:59 Vitamin B Complex/ Vit C/Folic Acid 1 cap DAILY 04/11/25 09:00 05/11/25 08:59 PLAN: Acute hypoxic respiratory failure Severe sepsis with shock Severe metabolic acidosis Hospital-acquired pneumonia Acute complicated cystitis Severe anemia, requiring transfusion Acute on chronic kidney disease Atrial fibrillation on chronic anticoagulation therapy Dilated cardiomyopathy ejection fraction 35-40% with moderate pulmonary hypotension Remote CVA Hx of Right lower extremity DVT Right knee arthroplasty hx. Plan: Continue adjustments to vent, Solu-Medrol 60 q.6 She is on Merrem and vancomycin Continue with Mycafungin Correcting electrolytes Discontinue Precedex Lactic acid level CT of chest w/o contrast, CT of abdomen and pelvis w/o contrast, CT w/o of right knee. INDERJIT CRISTOBAL MD Apr 10, 2025 20:06
--- NOTE | 2025-04-10 21:04 | PN ---
INFECTIOUS DISEASE PROGRESS NOTE Date of Service: Apr 10, 2025 SUBJECTIVE: This is an 84-year-old female patient seen and examined at bedside in room 208. Patient remains intubated. WBC is still elevated at 19.3 and hemoglobin is stable at 8.6. Liver enzymes continues to improve. Continues on linezolid IV and Meropenem and doxycycline has been added to the antibiotic regimen. The CT of the abdomen however showed a right retroperitoneal hematoma and pending General surgeon evaluation. We will continue to follow patient's care. PHYSICAL EXAM EYES: Anicteric. Pupils equal and reactive. HENT: No oral thrush seen, moist Oral mucosa NECK: Supple, no JVD or thyromegaly. LUNGS: Mechanical ventilation. CARDIOVASCULAR: S1, S2 regular. No murmur heard. ABDOMEN: Soft, non tender, bowel sounds present, no organomegaly CENTRAL NERVOUS SYSTEM: Intubated and sedated. SKIN: No rashes, no swelling. LYMPHATICS: No peripheral lymphadenopathy MUSCULOSKELETAL: No joint swelling, erythema or tenderness. EXTREMITIES: No cyanosis or clubbing. Generalized edema. BACK: No deformity, no pressure ulcer. GENITOURINARY: No dysuria or hematuria, Mcdowell catheter. Vital Sign (Last 12 Hours) 04/10/25 04/10/25 04/10/25 04/10/25 09:00 09:15 09:27 09:30 Pulse 94 99 93 Resp 18 18 B/P (MAP) 123/63 (83) 139/69 (92) 131/66 (87) Pulse Ox 100 100 100 FiO2 40 04/10/25 04/10/25 04/10/25 04/10/25 09:30 09:45 10:00 10:15 Pulse 79 98 109 93 Resp 18 18 18 B/P (MAP) 142/68 (92) 118/63 (81) 114/55 (74) Pulse Ox 100 100 100 FiO2 40 04/10/25 04/10/25 04/10/25 04/10/25 10:30 10:45 11:00 11:15 Pulse 91 91 91 91 Resp 18 18 18 18 B/P (MAP) 100/51 (67) 117/56 (76) 132/66 (88) 120/59 (79) Pulse Ox 100 100 100 100 11/26/25 11/26/25 11/26/25 11/26/25 11:26 11:30 11:45 12:00 Temp 98.2 Pulse 91 91 91 Resp 18 18 18 B/P (MAP) 129/61 (83) 134/67 (89) Pulse Ox 100 100 04/10/25 04/10/25 04/10/25 04/10/25 12:00 12:00 12:15 12:17 Pulse 99 91 80 Resp 18 18 B/P (MAP) 138/110 (119) 87/57 (67) Pulse Ox 99 99 100 O2 Delivery Ventilator+ ETT Piece+ O2 Flow Rate 40 FiO2 N/A 40 04/10/25 04/10/25 04/10/25 04/10/25 12:30 12:45 13:00 13:15 Pulse 91 91 91 91 Resp 18 18 18 18 B/P (MAP) 109/66 (80) 121/70 (87) 129/74 (92) 103/63 (76) Pulse Ox 100 100 99 100 04/10/25 04/10/25 04/10/25 04/10/25 13:30 13:45 14:00 14:15 Pulse 109 100 93 93 Resp 18 18 18 18 B/P (MAP) 120/76 (91) 113/68 (83) 115/68 (84) 114/67 (83) Pulse Ox 100 100 100 100 04/10/25 04/10/25 04/10/25 04/10/25 14:30 14:38 14:45 15:00 Pulse 96 93 100 93 Resp 18 18 18 B/P (MAP) 118/69 (85) 111/66 (81) 121/69 (86) Pulse Ox 100 100 100 FiO2 40 04/10/25 04/10/25 04/10/25 04/10/25 15:15 15:30 15:45 16:00 Pulse 99 93 95 109 Resp 18 18 18 18 B/P (MAP) 124/72 (89) 116/66 (83) 113/66 (82) 105/64 (78) Pulse Ox 100 100 100 100 04/10/25 04/10/25 04/10/25 04/10/25 16:00 16:15 16:30 16:45 Pulse 95 101 94 Resp 18 18 18 B/P (MAP) 117/67 (84) 125/69 (87) 131/71 (91) Pulse Ox 99 100 100 99 O2 Delivery Ventilator+ ETT Piece+ O2 Flow Rate 40 FiO2 N/A 04/10/25 04/10/25 04/10/25 04/10/25 17:00 17:15 17:30 17:45 Pulse 95 94 93 93 Resp 18 18 18 18 B/P (MAP) 125/67 (86) 119/65 (83) 120/62 (81) 122/63 (82) Pulse Ox 100 100 100 100 04/10/25 04/10/25 04/10/25 04/10/25 18:00 18:00 18:00 18:29 Temp 99.1 Pulse 95 92 Resp 18 B/P (MAP) 118/63 (81) Pulse Ox 100 FiO2 40 40 04/10/25 18:34 Pulse 93 Resp 18 Intake & Output (last 24hrs) 04/09/25 04/09/25 04/10/25 15:00 23:00 07:00 Intake Total 580.2 ml 1130.4 ml Output Total 340 ml 350 ml Balance 240.2 ml 780.4 ml LABS: Laboratory: Test 04/10/25 17:19 04/10/25 14:45 04/10/25 03:57 04/10/25 03:51 Range/Units Whole Blood Glucose 237 H 70-110 MG/DL Urine Color LIGHT-ORANGE YELLOW Urine Appearance TURBID CLEAR Urine pH 5.5 5.0-8.0 Urine Specific [place] 1.013 1.001-1.031 Urine Protein 50 H NEGATIVE mg/dL Urine Glucose (UA) NEGATIVE NEGATIVE mg/dL Urine Ketones NEGATIVE NEGATIVE mg/dL Urine Occult Blood LARGE H NEGATIVE Urine Nitrate NEGATIVE NEGATIVE Urine Bilirubin NEGATIVE NEGATIVE mg/dL Urine Urobilinogen 0.2 0.2-1.0 mg/dL Urine Leukocyte Esterase NEGATIVE NEGATIVE Nicole/uL Urine RBC >100 H 0-1 /HPF Urine WBC 2-5 H 0-1 /HPF Urine Squamous Epithelial Cells None Seen 0-2 /HPF Urine Bacteria Few None Seen /HPF Urine Random Sodium 49 40-220 mmol/l Urine Random Potassium 54 25-125 mmol/L Urine Random Chloride 72 L 110-250 mmol/L Blood Gas Specimen Type Arterial Arterial Blood pH 7.552 H 7.350-7.450 Arterial Blood Partial Pressure CO2 35 32-45 mmHg Arterial Blood Partial Pressure O2 89.5 83.0-108.0 mmHg Arterial Blood HCO3 30.0 H 21.0-28.0 mmol/L Arterial Blood Oxygen Saturation 97.7 94.0-98.0 % Arterial Blood Base Excess 7.6 H -2.0-3.0 mmol/L Blood Gas Temperature 37.0 35.5-37.0 CELSIUS Blood Gas Respiration Rate 18.0 min. Blood Gas Vent Mode AC VC ROOM AIR FiO2 40.0 % Blood Gas Tidal Volume 450 ml Blood Gas PEEP 5 cm H2O Blood Gas Specimen Comment MERVIN RN, [place] White Blood Count 19.3 H 4.8-10.8 K/uL Red Blood Count 2.73 L 4.00-5.50 MIL/uL Hemoglobin 8.6 L 12.0-16.0 g/dL Hematocrit 25.8 L 36-48 % Mean Corpuscular Volume 94.5 79-99 fL Mean Corpuscular Hemoglobin 31.5 27.0-33.0 pg Mean Corpuscular Hemoglobin Concent 33.3 32.0-36.0 g/dL Red Cell Distribution Width 18.5 H 11.0-15.5 % Platelet Count 116 L 130-400 K/uL Mean Platelet Volume 12.7 H 7.5-10.5 fL Immature Granulocyte % (Auto) 0.8 0-1 % Neutrophils (%) (Auto) 93.2 H 40.0-77.0 % Lymphocytes (%) (Auto) 1.6 L 21.0-51.0 % Monocytes (%) (Auto) 3.6 3.0-13.0 % Eosinophils (%) (Auto) 0.6 0.0-8.0 % Basophils (%) (Auto) 0.2 0.0-5.0 % Neutrophils # (Auto) 18.0 H 1.8-7.7 K/uL Lymphocytes # (Auto) 0.3 L 1.0-4.8 K/uL Monocytes # (Auto) 0.7 0.1-1.0 K/uL Eosinophils # (Auto) 0.12 0.00-0.70 K/uL Basophils # (Auto) 0.03 0.00-0.20 K/uL Absolute Immature Granulocyte (auto 0.15 0-1 K/uL Nucleated Red Blood Cells 3.8 H 0.0-0.19 % Prothrombin Time 18.8 H 9.6-11.6 SEC Prothromb Time International Ratio 1.89 H 0.85-1.15 Activated Partial Thromboplast Time 40.0 H 26.3-35.5 SEC Fibrinogen 236 180-350 mg/dL D-Dimer Quantitative (PE/DVT) 4615 *H 0-500 ng/mL Sodium Level 143 136-145 mmol/L Potassium Level 4.5 3.5-5.1 mmol/L Chloride Level 101 101-111 mmol/L Carbon Dioxide Level 29 21-32 mmol/L Blood Urea Nitrogen 76 *H 7-18 mg/dL Creatinine 2.7 H 0.5-1.0 mg/dL Glomerular Filtration Rate Calc 17 >90 mL/min Random Glucose 221 H 70-105 mg/dL Total Calcium 6.5 L 8.5-10.1 mg/dL Phosphorus Level 5.4 H 2.5-4.9 mg/dL Magnesium Level 1.90 1.80-2.40 mg/dL Total Bilirubin 2.1 #H 0.2-1.0 mg/dL Aspartate Amino Transf (AST/SGOT) 276 H 10-37 U/L Alanine Aminotransferase (ALT/SGPT) 584 #H 12-78 U/L Alkaline Phosphatase 181 H 50-136 U/L Total Protein 4.6 #L 6.0-8.3 g/dL Albumin 1.9 #L 3.5-5.0 g/dL Test 04/09/25 08:22 04/09/25 04:10 04/09/25 03:04 Range/Units Vancomycin Level Trough 14.8 # 10.0-20.0 UG/ML Lactic Acid Level 3.5 H 0.8-2.5 mmol/L Hemoglobin (Blood Gas) 8.8 L 12.0-16.0 g/dL Sodium (Blood Gas) 145 136-145 MMOL/L Bedside Potassium (Blood Gas) 4.3 3.4-4.5 MMOL/L Bedside Chloride (Blood Gas) 109 H 98-107 MMOL/L Bedside Glucose (Blood Gas) 258 H 65-95 MG/DL Bedside Ionized Calcium (Blood Gas) 0.82 L 1.15-1.33 MMOL/L Bedside Lactic Acid (Blood Gas) 3.38 *H 0.36-0.75 MMOL/L ASSESSMENT: Septic shock. Hypoxic respiratory failure, requiring intubation. Anemia, POA requiring blood transfusion. Right retroperitoneal hematoma Acute on chronic renal failure. Elevated liver enzymes. Morbid obesity. Bilateral pleural effusion. Diabetes mellitus. PLAN: Continue on linezolid IV. Continue on Meropenem. Doxycycline was added to the antibiotic regimen. Continue GI prophylaxis. Currently on vasopressor support. Continue ventilatory support. Continue diuretics. General surgeon has been consulted. This case was reviewed and discussed with my supervising physician Dr. Rawls and the above assessment and plan was formulated and agreed upon. ATTESTATION BY PHYSICIAN I have seen and examined the patient. I reviewed the documentation, medical decision making, and treatment plan as noted by the mid-level provider above. I agree with the findings and plan of care. CASSY RAWLS MD, [facility] Apr 10, 2025 21:04
[2025-04-11] VITALS (101 sets, daily range): BP systolic 97–214; BP diastolic 49–177; PULSE 78–112; RESP 15–19; TEMP 98.1–98.9; O2SAT 94–100
[2025-04-11] MEDS: MEROPENEM 1GM 1 GM VIAL IVPB SCH (01:00)
[2025-04-11 04:50] LABS: ABG BASE EXCESS 6.9 mmol/L (-2.0-3.0); ABG HCO3 30.2 mmol/L (21.0-28.0); ABG OXYGEN SATURATION 97.3 % (94.0-98.0); ABG PCO2 38 mmHg (32-45); ABG PH 7.516 (7.350-7.450); PO2, ARTERIAL BG 85.9 mmHg (83.0-108.0); TEMPERATURE, CELSIUS BG 37.0 CELSIUS (35.5-37.0); VENT MODE, BG ACVC (ROOM AIR)
[2025-04-11 05:32] LABS: NUCLEATED RED BLOOD CELLS 10.6 % (0.0-0.19); PLATELET COUNT (AUTO) 106 K/uL (130-400); RED BLOOD CELL COUNT(AUTO) 2.74 MIL/uL (4.00-5.50); RED CELL DISTRIBUTION WIDTH 17.9 % (11.0-15.5); WHITE BLOOD COUNT (AUTO) 15.0 K/uL (4.8-10.8)
[2025-04-11 05:46] LABS: INR 1.82 (0.85-1.15)
[2025-04-11 06:04] LABS: % IRON SATURATION 16.4 % (22-44); IRON, SERUM 29.0 mcg/dL (50-170)
[2025-04-11 06:13] LABS: BAND NEUTROPHILS % (MANUAL) 19 % (0-2); MAN.DIFF COMMENT-IMPRESSION MANUAL DIFFERENTIAL; MONOCYTES % (MANUAL) 7 % (2-9); SEGMENTED NEUTROPHILS % 74 % (40-70)
[2025-04-11 06:14] LABS: WBC MORPHOLOGY TOXIC GRANULATION 1+
[2025-04-11 06:27] LABS: ASPARTATE AMINOTRANSFERASE 95.0 U/L (10-37); CREATININE 2.9 mg/dL (0.5-1.0); GLOMERULAR FILTR. RATE CALC 16.0 mL/min (>90); GLUCOSE,RANDOM 210.0 mg/dL (70-105); PHOSPHORUS 5.8 mg/dL (2.5-4.9); SODIUM SERUM 143.0 mmol/L (136-145); TOTAL PROTEIN, SERUM 4.5 g/dL (6.0-8.3)
[2025-04-11 06:31] LABS: UREA NITROGEN, BLOOD 76.0 mg/dL (7-18)
[2025-04-11] MEDS: THIAMINE HCL 100 MG/ML 2ML VIAL IM SCH (08:46)
[2025-04-11] MEDS: Vitamin B Complex/Vit C/Folic Acid PO SCH (08:48)
--- NOTE | 2025-04-11 12:23 | PN ---
FOLLOWUP PROGRESS NOTE SUBJECTIVE: An 84-year-old female, initially presented with respiratory distress. The patient is now with mechanical ventilation. She has had [id number] renal dysfunction in the hospital. The patient had been started on the diuretics for the volume overload. Urine output has greatly improved and the patient is being seen as a followup visit for all the above. I did discuss the case in detail with the family members. REVIEW OF SYSTEMS: She is intubated, in the ICU. PHYSICAL EXAMINATION: VITAL SIGNS: Blood pressure is 109/52, pulse 90. GENERAL: She is a chronically ill female, elderly, lying in bed on the medical floor. HEENT: Head is atraumatic. Pupils are equal, round, reactive to light. Oropharynx, ET tube in place. NECK: Supple. There is no JVP. CARDIOVASCULAR: Regular. There is no S3, S4 or gallop. LUNGS: Coarse with equal thoracic movement. ABDOMEN: Soft, nondistended, and nontender. EXTREMITIES: The edema is improved. LABORATORY DATA: Hemoglobin 8.5, hematocrit 26, white blood cell count 15,000. BUN 76, creatinine is 2.9. IMPRESSION: * [id number] renal dysfunction. * Respiratory distress, on the ventilator. * Diabetes mellitus. * History of anemia. PLAN: The patient does have significant renal dysfunction. The patient's urine output has improved with the diuretics. The patient is being seen by pulmonary service in regard to weaning from the ventilator. There is no acute need for any form of renal replacement therapy at this time. The patient will be started on IV iron as well as Procrit for the anemia. The patient will obtain a renal ultrasound for completeness. The patient and family at the bedside. Multiple questions were all answered. TID: [id number] RECEIPT: [id number]
--- NOTE | 2025-04-11 12:59 | PN ---
[facility] PROGRESS NOTE Date Patient Seen: Apr 11, 2025 Time of Visit: 12:51 Supervising Physician: SHADE YOUNGBLOOD MD Primary Care Physician: JESUS MENDOZA MD Outpatient Specialists: [ ] Inpatient Consults: BIS PROBLEM LIST: Large right retroperitoneal hematoma displacing the right kidney, present on admission Acute hypoxic respiratory failure present on admission currently on mechanical ventilatory support via endotracheal tube Severe sepsis with shock Severe metabolic acidosis Hospital-acquired pneumonia Acute complicated cystitis Severe anemia, requiring transfusion Acute on chronic kidney disease Atrial fibrillation on chronic anticoagulation therapy Dilated cardiomyopathy ejection fraction 35-40% with moderate pulmonary hypotension Remote CVA Hx of Right lower extremity DVT History of right TKA Suspected AICD malfunction Status post AICD INTERVAL HISTORY: 84 years old woman seen and evaluated in the ICU. Events of the last 24 hours noted. Patient on mechanical ventilatory support via endotracheal tube. Patient remains on dobutamine drip and continues on Lasix twice daily H&H is 8.5, holding steady she had a positive output of 308, creatinine increased and her uric acid is high as well. Patient with low iron and positive Sabrina in the sputum. As per nephrology, patient is having urinary outlet obstruction secondary to the retroperitoneal hematoma causing an increase in her BUN and creatinine REVIEW OF SYSTEMS: unable to obtained due to patient condition. Currently on mechanical ventilatory support, paralyzed and sedated. PHYSICAL EXAM: GENERAL: 84-year-old female who is intubated. HEENT: ET tube, EOMI, Sclera non icteric, moist mucosa NECK: Supple, no JVD, trachea midline LUNGS: Clear breath sounds bilaterally. No wheezes HEART: Irregular rate. Normal S1 and S2, without murmurs ABD: Abdomen soft, nontender. Bowel sounds present large right retroperitoneal hematoma EXT: No clubbing cyanosis or edema NEURO: Patient is sedated Vital Signs (last 8hr) Date Time Temp Pulse Resp B/P (MAP) Pulse Ox O2 Delivery O2 Flow Rate FiO2 04/11/25 11:22 95 40 04/11/25 11:16 96 19 04/11/25 09:24 99 40 04/11/25 09:15 95 18 109/52 (71) 98 04/11/25 09:00 102 18 129/61 (83) 99 04/11/25 08:45 106 18 140/67 (91) 99 04/11/25 08:30 93 18 131/58 (82) 99 04/11/25 08:15 98 18 119/57 (77) 99 04/11/25 08:00 99 Ventilator+ 40 N/A ETT Piece+ 04/11/25 08:00 98.2 95 18 109/51 (70) 99 04/11/25 08:00 40 04/11/25 08:00 98.2 04/11/25 07:45 103 18 117/56 (76) 99 04/11/25 07:30 93 18 122/53 (76) 99 04/11/25 07:15 93 18 125/57 (79) 99 04/11/25 07:00 93 18 121/56 (77) 99 04/11/25 06:52 98 40 04/11/25 06:45 99 18 140/63 (88) 99 04/11/25 06:30 96 18 141/64 (89) 96 04/11/25 06:15 96 18 136/59 (84) 98 04/11/25 06:00 95 18 142/61 (88) 98 04/11/25 05:45 94 18 130/57 (81) 98 04/11/25 05:30 93 18 133/60 (84) 98 04/11/25 05:15 92 18 140/62 (88) 98 04/11/25 05:05 103 19 04/11/25 05:00 96 18 133/61 (85) 99 LABS: Hematology Labs: Test 04/11/25 04:49 04/10/25 03:51 Range/Units White Blood Count 15.0 H 4.8-10.8 K/uL Red Blood Count 2.74 L 4.00-5.50 MIL/uL Hemoglobin 8.5 L 12.0-16.0 g/dL Hematocrit 26.7 L 36-48 % Mean Corpuscular Volume 97.4 79-99 fL Mean Corpuscular Hemoglobin 31.0 27.0-33.0 pg Mean Corpuscular Hemoglobin Concent 31.8 L 32.0-36.0 g/dL Red Cell Distribution Width 17.9 H 11.0-15.5 % Platelet Count 106 L 130-400 K/uL Mean Platelet Volume 11.9 H 7.5-10.5 fL Segmented Neutrophils % 74 H 40-70 % Band Neutrophils % 19 H 0-2 % Monocytes % (Manual) 7 2-9 % Nucleated Red Blood Cells 10.6 H 0.0-0.19 % Differential Comment MANUAL DIFFERENTIAL White Cell Morphology Comment TOXIC GRANULATION 1+ Platelet Morphology Comment See comments Red Blood Cell Morphology See comments Immature Granulocyte % (Auto) 0.8 0-1 % Neutrophils (%) (Auto) 93.2 H 40.0-77.0 % Lymphocytes (%) (Auto) 1.6 L 21.0-51.0 % Monocytes (%) (Auto) 3.6 3.0-13.0 % Eosinophils (%) (Auto) 0.6 0.0-8.0 % Basophils (%) (Auto) 0.2 0.0-5.0 % Neutrophils # (Auto) 18.0 H 1.8-7.7 K/uL Lymphocytes # (Auto) 0.3 L 1.0-4.8 K/uL Monocytes # (Auto) 0.7 0.1-1.0 K/uL Eosinophils # (Auto) 0.12 0.00-0.70 K/uL Basophils # (Auto) 0.03 0.00-0.20 K/uL Absolute Immature Granulocyte (auto 0.15 0-1 K/uL Chemistry Labs: Test 04/11/25 11:24 04/11/25 09:04 04/11/25 04:49 Range/Units Whole Blood Glucose 176 H 70-110 MG/DL Lactic Acid Level 3.1 H 0.8-2.5 mmol/L Sodium Level 143 136-145 mmol/L Potassium Level 4.5 3.5-5.1 mmol/L Chloride Level 101 101-111 mmol/L Carbon Dioxide Level 29 21-32 mmol/L Blood Urea Nitrogen 76 *H 7-18 mg/dL Creatinine 2.9 H 0.5-1.0 mg/dL Glomerular Filtration Rate Calc 16 >90 mL/min Random Glucose 210 H 70-105 mg/dL Uric Acid 9.9 H 2.6-7.2 mg/dL Total Calcium 6.7 L 8.5-10.1 mg/dL Phosphorus Level 5.8 H 2.5-4.9 mg/dL Magnesium Level 1.80 1.80-2.40 mg/dL Iron Level 29 L 50-170 mcg/dL Total Iron Binding Capacity 176 L 250-450 mcg/dL Percent Iron Saturation 16.4 L 22-44 % Ferritin 899 H 15-150 ng/mL Total Bilirubin 1.5 H 0.2-1.0 mg/dL Aspartate Amino Transf (AST/SGOT) 95 H 10-37 U/L Alanine Aminotransferase (ALT/SGPT) 384 H 12-78 U/L Alkaline Phosphatase 174 H 50-136 U/L Ammonia 22 11-32 umol/L Total Protein 4.5 L 6.0-8.3 g/dL Albumin 1.8 L 3.5-5.0 g/dL Thyroid Stimulating Hormone (TSH) 1.29 0.36-3.74 uIU/mL Coagulation Labs: Test 04/11/25 04:49 04/10/25 03:51 Range/Units Prothrombin Time 18.2 H 9.6-11.6 SEC Prothromb Time International Ratio 1.82 H 0.85-1.15 Activated Partial Thromboplast Time 39.7 H 26.3-35.5 SEC Fibrinogen 236 180-350 mg/dL D-Dimer Quantitative (PE/DVT) 4615 *H 0-500 ng/mL DIAGNOSTICS / RADIOLOGY RESULTS: No new imaging scans reviewed today PLAN Continue medical management in the ICU Continue mechanical ventilator support, patient is not sedated Start allopurinol 100 mg daily for hyperuricemia Increased dobutamine drip to 5 mcg Increase Lasix drip to 15 milligrams/drip Get renal ultrasound to Continue Levophed at 0.9 Family updated NEURO: Minimize central acting medications as possible. Fall Precautions. Well lighted room through the day and minimize interruptions through the night to prevent acute delirium. PULMONARY: On mechanical ventilator support via endotracheal tube at this time CARDIOVASCULAR: Follow hemodynamics. Titrate vasopressor to keep MAP >65 or systolic blood pressure >95mmHg DIPS: [ Levophed ] GI & NUTRITION: Continue nutritional support Aspirations precautions Prokinetic agents and laxatives as needed KIDNEYS & ELECTROLYTES: Strict monitoring of intake and output Daily weights Avoid nephrotoxic agents Monitor electrolytes and replace as needed Goal urine output of 30mL/hr or 0.5mL/kg/hr ENDOCRINE: Maintain blood glucose between 100-180 at all times. Insulin sliding scale for blood glucose management INFECTIOUS DISEASE: Trend temperature. Pittman-culture if febrile. Micro: [Pending results ] Antibiotics: [ As per I and D] HEMATOLOGY & COAGULATION: Monitor H&H. Keep Hgb > 7 Transfuse 1 unit of PRBC for Hgb < 7 Transfuse 1 pack of platelets of platelets < 20, 000 Watch for any signs and symptoms of bleeding SKIN: Pressure ulcer prevention per facility protocol Rehab: PT/OT Prophylaxis: GI: [ Protonix 40 mg IV b.i.d.] DVT: [SCDs to the lower extremities ] Code Status: Full Resuscitation Disposition: [Continue medical management in the ICU ] Total critical care time 35 minutes I personally scribed for SHADE YOUNGBLOOD MD ([email or web address]) on 04/11/25 at 12:59. Electronically submitted by Jesus Camargo ([facility]). SHADE YOUNGBLOOD MD Apr 11, 2025 12:59
--- NOTE | 2025-04-11 14:42 | PN ---
This patient has a history of persistent atrial fibrillation as well as atypical atrial flutter. She underwent biventricular pacemaker (not ICD) implantation (LVEF was 35-40% at that time) and AV node ablation earlier this month on March 27. She was started on Pradaxa approximately 48-72 hours post procedure. She now came in with severe acidosis and hypotension which initially was felt to be due to sepsis however she was then found to have a massive hemorrhage from a spontaneous retroperitoneal hematoma. Her acidosis improved and she appears to be slowly improving overall. She was said to have a heart rate intermittently in the 30s and there was a miscommunication that her pacemaker has been programmed to 30 beats per minute. [employer] interrogation of the device and turned off automatic threshold testing. Pacing and sensing thresholds were acceptable and similar to those post implant. When the patient was discharged from the [facility], her pacemaker was programmed with a lower rate of 90 beats per minute. This is important for the 1st two weeks in order to prevent torsades which can occur post AV node ablation and patient's who have chronically rapid rates. The fact that she had heart rates in the 30s would represent her junctional escape rhythm. This would occur in the setting of acidosis where pacing thresholds would be unacceptably high. This was likely further exacerbated by automatic threshold testing at the time which normally would only cause a a very short pause prior to a higher output paced beat. She now continues to pace at 90 beats per minute, and she may pace faster than this based upon her metabolic need, although this will be blunted by the presence of vasopressors, etc. Impression: 1. There is no pacemaker malfunction nor programming irregularity 2. The patient experienced intermittent loss of capture causing her junctional escape rhythm to emerge, due to acidosis and automatic threshold testing. Plan: No further cardiac interventions at this point. Vitals/Labs Vital Signs Date Time Temp Pulse Resp B/P (MAP) Pulse Ox O2 Delivery O2 Flow Rate FiO2 04/11/25 12:45 93 123/52 (75) 100 04/11/25 12:00 99.0 04/11/25 11:22 40 04/11/25 11:16 19 04/11/25 08:00 Ventilator+ 40 ETT Piece+ Laboratory Tests 04/11/25 04:49 MAIN BURNS MD Apr 11, 2025 14:42
--- NOTE | 2025-04-11 14:54 | PN ---
INFECTIOUS DISEASE FOLLOWUP NOTE DATE OF SERVICE: 04/11/2025 SUBJECTIVE: The patient is seen and examined at bedside today. The patient has no fever, afebrile. No rashes or itchiness. She remains intubated and sedated, on ventilatory support. The patient remains on vasopressor and Dobutamine infusion. No family at bedside at this time ____. PHYSICAL EXAMINATION: VITAL SIGNS: Temperature 98.9. EYES: Nonicteric. Pupils are equal and reactive to light. HENT: Orally intubated, ventilatory support. NECK: Supple. No JVD or thyromegaly. LUNGS: Good air entry. Few crackles. CARDIOVASCULAR: S1 and S2 regular. No murmur. ABDOMEN: Soft. Bowel sound is present. CENTRAL NERVOUS SYSTEM: ____ SKIN: No rashes, no itchiness. LYMPHATIC: No peripheral lymphadenopathy. BACK: No deformity, no pressure ulcers. HEMATOLOGIC: No bleeding or petechial lesions seen. MUSCULOSKELETAL: No joint swelling, erythema or tenderness. LABORATORY DATA: WBC 15.0, hemoglobin 8.5, platelets 106. Sodium 143, potassium 4.5, BUN 26, creatinine 2.9. Lactic acid 2.9. ASSESSMENT: An 84-year-old female with multiple problems including, * Septic shock. * Hypoxemic respiratory failure ____ * Heart failure. * Pneumonia. * Anemia. * ____ * Obesity. * Diabetes mellitus. PLAN: * Dobutamine infusion. * Continue meropenem. * Continue Linezolid. * Continue nutritional support. * Continue ventricular support. * Monitor renal function. * Monitor electrolytes. * The patient will be followed closely. TID: [id number] RECEIPT: [id number]
[2025-04-11] MEDS: Solu-medROL 40MG VIAL IVP SCH (16:23)
--- NOTE | 2025-04-11 20:30 | HMCIMG ---
EXAM: CR Chest, 1 View. CLINICAL HISTORY: CHF COMPARISON: 04/10/2025 FINDINGS: The ET tube is 4 cm away from the juanito. The nasogastric tube is seen with the distal end below the left hemidiaphragm. LUNGS: Hypoexpansion of the lungs. Visualized lungs are clear. PLEURAL SPACES: No pneumothorax. Questionable small left pleural effusion. MEDIASTINUM: Cardiac size is stable. Mild bilateral pulmonary congestion. Left-sided cardiac pacemaker with pacemaker wires in the right atrium and ventricles. BONES: No acute osseous abnormality. IMPRESSION: 1. Mild bilateral pulmonary congestion. 2. Questionable small left pleural effusion. 3. ET tube 4 cm from juanito. /[place]
--- NOTE | 2025-04-11 21:54 | PN ---
PROGRESS NOTE PROGRESS NOTE DATE OF PROGRESS NOTE: 04/11/25 SUBJECTIVE: No new complaints VITAL SIGNS Vital Signs Date Time Temp Pulse Resp B/P (MAP) Pulse Ox O2 Delivery O2 Flow Rate FiO2 04/11/25 21:06 95 40 04/11/25 18:30 18 112/53 (72) 96 04/11/25 16:00 98.8 04/11/25 16:00 Ventilator+ 40 ETT Piece+ PHYSICAL EXAM: PHYSICAL EXAM: GENERAL: 84-year-old female who is intubated. HEENT: ET tube, EOMI, Sclera non icteric, moist mucosa NECK: Supple, no JVD, trachea midline LUNGS: Clear breath sounds bilaterally. No wheezes HEART: Irregular rate. Normal S1 and S2, without murmurs ABD: Abdomen soft, nontender. Bowel sounds present EXT: No clubbing cyanosis or edema NEURO: Patient is sedated LABORATORY: Laboratory Result(s) Test 04/11/25 00:55 04/11/25 04:48 04/11/25 04:49 04/11/25 05:01 Whole Blood Glucose 192 MG/DL (70-110) 197 MG/DL (70-110) Blood Gas Specimen Type Arterial Arterial Blood pH 7.516 (7.350-7.450) Arterial Blood Partial Pressure CO2 38 mmHg (32-45) Arterial Blood Partial Pressure O2 85.9 mmHg (83.0-108.0) Arterial Blood HCO3 30.2 mmol/L (21.0-28.0) Arterial Blood Oxygen Saturation 97.3 % (94.0-98.0) Arterial Blood Base Excess 6.9 mmol/L (-2.0-3.0) Blood Gas Temperature 37.0 CELSIUS (35.5-37.0) Blood Gas Respiration Rate 18.0 min. Blood Gas Vent Mode ACVC (ROOM AIR) FiO2 40.0 % Blood Gas Tidal Volume 450 ml Blood Gas PEEP 5 cm H2O Blood Gas Specimen Comment AL,RNMARISSA White Blood Count 15.0 K/uL (4.8-10.8) Red Blood Count 2.74 MIL/uL (4.00-5.50) Hemoglobin 8.5 g/dL (12.0-16.0) Hematocrit 26.7 % (36-48) Mean Corpuscular Volume 97.4 fL (79-99) Mean Corpuscular Hemoglobin 31.0 pg (27.0-33.0) Mean Corpuscular Hemoglobin Concent 31.8 g/dL (32.0-36.0) Red Cell Distribution Width 17.9 % (11.0-15.5) Platelet Count 106 K/uL (130-400) Mean Platelet Volume 11.9 fL (7.5-10.5) Segmented Neutrophils % 74 % (40-70) Band Neutrophils % 19 % (0-2) Monocytes % (Manual) 7 % (2-9) Nucleated Red Blood Cells 10.6 % (0.0-0.19) Differential Comment MANUAL DIFFERENTIAL White Cell Morphology Comment TOXIC GRANULATION 1+ Platelet Morphology Comment See comments Red Blood Cell Morphology See comments Prothrombin Time 18.2 SEC (9.6-11.6) Prothromb Time International Ratio 1.82 (0.85-1.15) Activated Partial Thromboplast Time 39.7 SEC (26.3-35.5) Sodium Level 143 mmol/L (136-145) Potassium Level 4.5 mmol/L (3.5-5.1) Chloride Level 101 mmol/L (101-111) Carbon Dioxide Level 29 mmol/L (21-32) Blood Urea Nitrogen 76 mg/dL (7-18) Creatinine 2.9 mg/dL (0.5-1.0) Glomerular Filtration Rate Calc 16 mL/min (>90) Random Glucose 210 mg/dL (70-105) Lactic Acid Level 2.9 mmol/L (0.8-2.5) Uric Acid 9.9 mg/dL (2.6-7.2) Total Calcium 6.7 mg/dL (8.5-10.1) Phosphorus Level 5.8 mg/dL (2.5-4.9) Magnesium Level 1.80 mg/dL (1.80-2.40) Iron Level 29 mcg/dL (50-170) Total Iron Binding Capacity 176 mcg/dL (250-450) Percent Iron Saturation 16.4 % (22-44) Ferritin 899 ng/mL (15-150) Total Bilirubin 1.5 mg/dL (0.2-1.0) Aspartate Amino Transf (AST/SGOT) 95 U/L (10-37) Alanine Aminotransferase (ALT/SGPT) 384 U/L (12-78) Alkaline Phosphatase 174 U/L (50-136) Ammonia 22 umol/L (11-32) Total Protein 4.5 g/dL (6.0-8.3) Albumin 1.8 g/dL (3.5-5.0) Thyroid Stimulating Hormone (TSH) 1.29 uIU/mL (0.36-3.74) Test 04/11/25 09:04 04/11/25 11:24 04/11/25 18:07 Lactic Acid Level 3.1 mmol/L (0.8-2.5) Whole Blood Glucose 176 MG/DL (70-110) 199 MG/DL (70-110) INPATIENT MEDS: Current Medications Medications Dose Ordered Sig/Asif Start Time Stop Time Status Last Admin Diazepam 5 mg Q4H PRN 04/06/25 09:00 04/13/25 08:59 04/07/25 15:28 Dextrose 50 ml AD PRN 04/06/25 16:30 05/06/25 16:29 04/07/25 16:56 Glucagon 1 mg AD PRN 04/06/25 16:30 05/06/25 16:29 Pantoprazole Sodium 40 mg BID 04/07/25 09:00 05/07/25 08:59 04/11/25 21:21 Norepinephrine Bitartrate 32 mg/ Sodium Chloride 250 ml @ 0 mls/hr PROTOCOL 04/07/25 08:30 05/07/25 08:29 04/08/25 01:59 Ipratropium Vici 0.5 mg [id number] 04/07/25 12:00 05/07/25 11:59 04/11/25 18:26 Midazolam HCl 2 mg Q2HPRN PRN 04/07/25 16:00 05/07/25 15:59 04/07/25 16:05 Fentanyl/Sodium Chloride 250 ml @ 0.1 mls/hr PROTOCOL 04/08/25 02:00 04/13/25 01:59 04/10/25 17:08 Magnesium Sulfate 50 ml @ 0 mls/hr PROTOCOL 04/09/25 05:00 05/09/25 04:59 04/09/25 05:17 Calcium Gluconate 1 gm PROTOCOL 04/09/25 05:00 05/09/25 04:59 04/09/25 05:17 Linezolid 300 ml @ 150 mls/hr Q12H 04/09/25 16:30 04/19/25 16:29 04/11/25 16:22 Furosemide 100 mg/ Sodium Chloride 100 ml @ 15 mls/hr PROTOCOL 04/10/25 11:30 05/10/25 11:29 04/11/25 17:58 Dobutamine HCl/ Dextrose 250 ml @ 30.345 mls/ hr PROTOCOL 04/10/25 11:30 05/10/25 11:29 04/11/25 16:57 Doxycycline Hyclate 250 ml @ 125 mls/hr Q12H 04/10/25 11:30 04/20/25 11:29 04/11/25 11:37 Insulin Human Regular INSULIN SLIDING SCAL... Q6H6 04/10/25 12:00 05/10/25 11:59 04/11/25 18:24 Thiamine HCl 100 mg DAILY 04/11/25 09:00 05/11/25 08:59 04/11/25 08:46 Vitamin B Complex/ Vit C/Folic Acid 1 cap DAILY 04/11/25 09:00 05/11/25 08:59 04/11/25 08:48 Meropenem 1 gm Q24H 04/11/25 02:00 04/21/25 01:59 04/11/25 01:00 Iron Sucrose 300 mg/Sodium Chloride 250 ml @ 83 mls/hr ONCE ONCE 04/11/25 21:00 04/12/25 00:00 04/11/25 21:31 Epoetin Prashanth-epbx 10,000 unit [id number] 04/12/25 09:00 05/12/25 08:59 Methylprednisolone Sodium Succinate 40 mg Q6H 04/11/25 16:00 05/11/25 15:59 04/11/25 21:22 PLAN: Acute hypoxic respiratory failure Severe sepsis with shock Severe metabolic acidosis Hospital-acquired pneumonia Acute complicated cystitis Severe anemia, requiring transfusion Acute on chronic kidney disease Atrial fibrillation on chronic anticoagulation therapy Dilated cardiomyopathy ejection fraction 35-40% with moderate pulmonary hypotension Remote CVA Hx of Right lower extremity DVT Right knee arthroplasty hx. Plan: Continue adjustments to vent, Solu-Medrol 60 q.6 She is on Merrem and vancomycin Continue with Mycafungin Correcting electrolytes Discontinue Precedex Lactic acid level CT of chest w/o contrast, CT of abdomen and pelvis w/o contrast, CT w/o of right knee. INDERJIT CRISTOBAL MD Apr 11, 2025 21:53
--- NOTE | 2025-04-11 22:32 | HMCIMG ---
STUDY: ULTRASOUND OF THE KIDNEYS AND URINARY BLADDER CLINICAL INFORMATION: Renal failure. TECHNIQUE: Real-time grayscale ultrasound of both kidneys and the urinary bladder was performed using a curvilinear transducer, with color Doppler imaging as needed. COMPARISON: None provided. FINDINGS: RIGHT KIDNEY: The right kidney measures approximately 8.2 ??? 3.3 ??? 3.3 cm and appears small in size. Corticomedullary differentiation is preserved. There is minimal right hydronephrosis. No discrete renal mass, shadowing calculus, or perinephric collection is identified. LEFT KIDNEY: The left kidney is not visualized on this examination. URINARY BLADDER: Urinary bladder is decompressed with an indwelling Mcdowell catheter in place. Bladder wall thickness measures approximately 2 mm, within normal limits for the degree of distention. No intraluminal mass or calculus is identified. IMPRESSION: * Small right kidney with minimal right hydronephrosis. In the setting of renal failure, correlation with renal function tests and cross-sectional imaging (CT or MRI urography) is recommended to further evaluate for chronic parenchymal disease or subtle distal obstruction. * Decompressed urinary bladder with Mcdowell catheter in situ and normal bladder wall thickness. No sonographic evidence of intravesical mass or calculus. /[place]
[2025-04-12] VITALS (103 sets, daily range): BP systolic 89–157; BP diastolic 50–115; PULSE 71–109; RESP 5–21; TEMP 97.7–98.8; O2SAT 96–100
[2025-04-12 03:12] LABS: ABG BASE EXCESS 4.6 mmol/L (-2.0-3.0); ABG HCO3 28.2 mmol/L (21.0-28.0); ABG OXYGEN SATURATION 93.6 % (94.0-98.0); ABG PCO2 39 mmHg (32-45); ABG PH 7.480 (7.350-7.450); PO2, ARTERIAL BG 63.2 mmHg (83.0-108.0); TEMPERATURE, CELSIUS BG 37.0 CELSIUS (35.5-37.0); VENT MODE, BG AC (ROOM AIR)
[2025-04-12 04:20] LABS: IMMATURE GRANULOCYTE ABSOLUTE 0.09 K/uL (0-1); NUCLEATED RED BLOOD CELLS 6.9 % (0.0-0.19); PLATELET COUNT (AUTO) 119 K/uL (130-400); RED BLOOD CELL COUNT(AUTO) 2.58 MIL/uL (4.00-5.50); RED CELL DISTRIBUTION WIDTH 18.6 % (11.0-15.5); WHITE BLOOD COUNT (AUTO) 16.2 K/uL (4.8-10.8)
[2025-04-12 04:37] LABS: INR 1.59 (0.85-1.15)
[2025-04-12 05:11] LABS: ASPARTATE AMINOTRANSFERASE 62.0 U/L (10-37); CREATININE 3.0 mg/dL (0.5-1.0); GLOMERULAR FILTR. RATE CALC 15.0 mL/min (>90); GLUCOSE,RANDOM 201.0 mg/dL (70-105); PHOSPHORUS 6.5 mg/dL (2.5-4.9); SODIUM SERUM 142.0 mmol/L (136-145); TOTAL PROTEIN, SERUM 4.4 g/dL (6.0-8.3)
[2025-04-12 05:44] LABS: UREA NITROGEN, BLOOD 83.0 mg/dL (7-18)
[2025-04-12] MEDS: EPOETIN ALFA-EPBX (NON-ESRD) 10,000 UNIT/ML VIAL SQ SCH (08:56)
--- NOTE | 2025-04-12 10:34 | PN ---
FOLLOWUP PROGRESS NOTE SUBJECTIVE: An 84-year-old female with history of known coronary artery disease. The patient initially admitted with underlying respiratory distress. The patient remains intubated in the ICU. The patient remains on a diuretics. Urine output has been adequate. She has a history of known retroperitoneal hematoma. The patient's renal ultrasound is noted and she is being seen as a followup visit for all of the above. REVIEW OF SYSTEMS: She is intubated in the ICU. PHYSICAL EXAMINATION: VITAL SIGNS: Blood pressure is 106/52, pulse 90. GENERAL: She is a critically old female, elderly, lying in bed on the medical floor. HEENT: Head is atraumatic. Pupils are equal, round and reactive to light. Oropharynx is without exudate. Nares clear. NECK: There is no JVP. There is no thyromegaly. No masses. CARDIOVASCULAR: Regular. There is no S3 or S4 gallop. LUNGS: Coarse with equal thoracic movement. ABDOMEN: Soft, nondistended, and nontender. EXTREMITIES: Reveal no clubbing, no cyanosis. NEUROLOGICAL: She is sedated on the vent. LABORATORY DATA: Hemoglobin 8.3, hematocrit 25, white count 16,000. Sodium 142, potassium 4.5, BUN 83, creatinine 3, bilirubin is 1.4, albumin is 1.7. IMPRESSION: * Acute on chronic renal failure. * Retroperitoneal hematoma. * Respiratory failure, on the vent. * Anemia. PLAN: The patient's urine output has been adequate with the diuretics. The patient does have retroperitoneal hematoma. All anticoagulation has been placed on hold. The patient remains on erythropoietin injection for the anemia. She can continue with the diuretics. The patient is also on dobutamine. We will continue to follow closely. There is no acute need for any form of renal replacement therapy. I did discuss previously with the patient's family. Electrolytes have all been aggressively repleted. TID: [id number] RECEIPT: [id number]
--- NOTE | 2025-04-12 11:07 | PN ---
INFECTIOUS DISEASE PROGRESS NOTE Date of Service: Apr 12, 2025 SUBJECTIVE: This is an 84-year-old female patient who was seen and examined at bedside in room 218. Patient remains intubated. The final sputum culture results came back positive for Sabrina albicans. Continues on linezolid IV and Meropenem and doxycycline. Patient is now off the vasopressors. WBC still slightly elevated at 16.2 but remains afebrile. Bilateral lower extremity remains edematous, the right lower extremity is more swollen. We will continue to follow patient's care. PHYSICAL EXAM EYES: Anicteric. Pupils equal and reactive. HENT: No oral thrush seen, moist Oral mucosa NECK: Supple, no JVD or thyromegaly. LUNGS: Mechanical ventilation. CARDIOVASCULAR: S1, S2 regular. No murmur heard. ABDOMEN: Soft, non tender, bowel sounds present, no organomegaly CENTRAL NERVOUS SYSTEM: Intubated and sedated. SKIN: No rashes, no swelling. LYMPHATICS: No peripheral lymphadenopathy MUSCULOSKELETAL: No joint swelling, erythema or tenderness. EXTREMITIES: No cyanosis or clubbing. Generalized edema. BACK: No deformity, no pressure ulcer. GENITOURINARY: No dysuria or hematuria, Mcdowell catheter. Vital Sign (Last 12 Hours) 04/11/25 04/11/25 04/11/25 04/11/25 23:15 23:30 23:45 23:59 Pulse 93 92 93 90 Resp 18 18 18 19 B/P (MAP) 134/60 (84) 134/89 (104) 97/79 (85) Pulse Ox 97 98 96 04/12/25 04/12/25 04/12/25 04/12/25 00:00 00:00 00:00 00:15 Temp 98.6 Pulse 71 85 Resp 18 18 B/P (MAP) 89/66 (74) 98/72 (81) Pulse Ox 98 97 98 O2 Delivery Ventilator+ ETT Piece+ O2 Flow Rate 40 FiO2 N/A 04/12/25 04/12/25 04/12/25 04/12/25 00:15 00:30 00:45 01:00 Pulse 93 71 94 95 Resp 18 18 18 B/P (MAP) 122/77 (92) 123/109 (114) 112/96 (101) Pulse Ox 98 98 98 FiO2 40 04/12/25 04/12/25 04/12/2525 01:15 01:28 01:30 01:45 Pulse 87 88 88 Resp 18 18 18 B/P (MAP) 134/115 (121) 114/67 122/101 (108) 154/69 (97) Pulse Ox 97 97 98 04/12/25 04/12/25 04/12/25 04/12/25 02:00 02:15 02:30 02:45 Pulse 95 91 91 91 Resp 18 18 18 18 B/P (MAP) 153/63 (93) 123/59 (80) 114/63 (80) 134/58 (83) Pulse Ox 98 98 95 98 04/12/25 04/12/25 04/12/25 04/12/25 03:00 03:15 03:24 03:30 Pulse 85 91 91 Resp 18 18 B/P (MAP) 112/58 (76) 103/54 (70) Pulse Ox 98 97 FiO2 50 50 04/12/25 04/12/25 04/12/25 04/12/25 04:00 04:00 04:00 04:15 Temp 98.8 Pulse 91 91 Resp 18 15 B/P (MAP) 122/54 (76) 134/58 (83) Pulse Ox 99 100 100 O2 Delivery Ventilator+ ETT Piece+ O2 Flow Rate 40 FiO2 N/A 04/12/25 04/12/25 04/12/25 04/12/25 04:30 05:00 05:15 05:30 Pulse 91 92 91 91 Resp 18 19 19 18 B/P (MAP) 133/58 (83) 157/65 (95) 134/57 (82) 132/59 (83) Pulse Ox 100 95 100 97 04/12/25 04/12/25 04/12/25 04/12/25 05:45 06:00 06:15 06:27 Pulse 91 108 92 93 Resp 19 18 18 B/P (MAP) 152/64 (93) 124/59 (80) 119/52 (74) Pulse Ox 97 96 94 FiO2 50 04/12/25 04/12/25 04/12/25 04/12/25 06:30 06:31 06:45 07:00 Pulse 91 93 91 Resp 18 18 18 B/P (MAP) 120/54 (76) 126/60 (82) Pulse Ox 100 92 FiO2 50 04/12/25 04/12/25 04/12/25 04/12/25 07:00 07:00 07:15 07:30 Temp 98.2 Pulse 92 91 91 Resp 18 18 18 B/P (MAP) 106/52 (70) 134/56 (82) 116/50 (72) Pulse Ox 99 98 98 04/12/25 04/12/25 04/12/25 04/12/25 07:45 08:00 08:00 08:15 Pulse 91 91 91 Resp 18 18 19 B/P (MAP) 113/50 (71) 132/71 (91) 130/84 (99) Pulse Ox 83 99 98 98 O2 Delivery Ventilator+ ETT Piece+ O2 Flow Rate 50 FiO2 N/A 04/12/25 04/12/25 04/12/25 04/12/25 08:30 08:45 09:00 09:15 Pulse 108 94 96 93 Resp 18 18 18 5 B/P (MAP) 141/68 (92) 117/58 (77) 147/72 (97) 132/72 (92) Pulse Ox 95 95 96 100 04/12/25 04/12/25 04/12/25 04/12/25 09:25 09:30 09:45 10:25 Pulse 91 93 Resp 18 B/P (MAP) 113/60 147/68 (94) 121/65 Pulse Ox 98 FiO2 50 Intake & Output (last 24hrs) 04/11/25 04/11/25 04/12/25 15:00 23:00 07:00 Intake Total 746.8 ml 1168.0 ml 1421.6 ml Output Total 500 ml 600 ml Balance 746.8 ml 668.0 ml 821.6 ml LABS: Laboratory: Test 04/12/25 04:11 04/12/25 03:10 04/12/25 00:21 04/11/25 04:49 Range/Units White Blood Count 16.2 H 4.8-10.8 K/uL Red Blood Count 2.58 L 4.00-5.50 MIL/uL Hemoglobin 8.3 L 12.0-16.0 g/dL Hematocrit 25.5 L 36-48 % Mean Corpuscular Volume 98.8 79-99 fL Mean Corpuscular Hemoglobin 32.2 27.0-33.0 pg Mean Corpuscular Hemoglobin Concent 32.5 32.0-36.0 g/dL Red Cell Distribution Width 18.6 H 11.0-15.5 % Platelet Count 119 L 130-400 K/uL Mean Platelet Volume 12.2 H 7.5-10.5 fL Immature Granulocyte % (Auto) 0.6 0-1 % Neutrophils (%) (Auto) 93.8 H 40.0-77.0 % Lymphocytes (%) (Auto) 0.6 L 21.0-51.0 % Monocytes (%) (Auto) 4.0 3.0-13.0 % Eosinophils (%) (Auto) 0.6 0.0-8.0 % Basophils (%) (Auto) 0.4 0.0-5.0 % Neutrophils # (Auto) 15.2 H 1.8-7.7 K/uL Lymphocytes # (Auto) 0.1 L 1.0-4.8 K/uL Monocytes # (Auto) 0.7 0.1-1.0 K/uL Eosinophils # (Auto) 0.10 0.00-0.70 K/uL Basophils # (Auto) 0.07 0.00-0.20 K/uL Absolute Immature Granulocyte (auto 0.09 0-1 K/uL Nucleated Red Blood Cells 6.9 H 0.0-0.19 % Prothrombin Time 16.1 H 9.6-11.6 SEC Prothromb Time International Ratio 1.59 H 0.85-1.15 Activated Partial Thromboplast Time 37.4 H 26.3-35.5 SEC Sodium Level 142 136-145 mmol/L Potassium Level 4.5 3.5-5.1 mmol/L Chloride Level 101 101-111 mmol/L Carbon Dioxide Level 29 21-32 mmol/L Blood Urea Nitrogen 83 *H 7-18 mg/dL Creatinine 3.0 H 0.5-1.0 mg/dL Glomerular Filtration Rate Calc 15 >90 mL/min Random Glucose 201 H 70-105 mg/dL Lactic Acid Level 2.9 H 0.8-2.5 mmol/L Total Calcium 7.1 L 8.5-10.1 mg/dL Phosphorus Level 6.5 H 2.5-4.9 mg/dL Magnesium Level 1.80 1.80-2.40 mg/dL Total Bilirubin 1.4 H 0.2-1.0 mg/dL Aspartate Amino Transf (AST/SGOT) 62 H 10-37 U/L Alanine Aminotransferase (ALT/SGPT) 259 #H 12-78 U/L Alkaline Phosphatase 168 H 50-136 U/L Ammonia 32 # 11-32 umol/L Total Protein 4.4 L 6.0-8.3 g/dL Albumin 1.7 L 3.5-5.0 g/dL Blood Gas Specimen Type Arterial Arterial Blood pH 7.480 H 7.350-7.450 Arterial Blood Partial Pressure CO2 39 32-45 mmHg Arterial Blood Partial Pressure O2 63.2 L 83.0-108.0 mmHg Arterial Blood HCO3 28.2 H 21.0-28.0 mmol/L Arterial Blood Oxygen Saturation 93.6 L 94.0-98.0 % Arterial Blood Base Excess 4.6 H -2.0-3.0 mmol/L Blood Gas Temperature 37.0 35.5-37.0 CELSIUS Blood Gas Respiration Rate 18.0 min. Blood Gas Vent Mode AC ROOM AIR FiO2 40.0 % Blood Gas Tidal Volume 450 ml Blood Gas PEEP 5 cm H2O Blood Gas Specimen Comment [facility] Whole Blood Glucose 207 H 70-110 MG/DL Segmented Neutrophils % 74 H 40-70 % Band Neutrophils % 19 H 0-2 % Monocytes % (Manual) 7 2-9 % Uric Acid 9.9 H 2.6-7.2 mg/dL Iron Level 29 L 50-170 mcg/dL Total Iron Binding Capacity 176 L 250-450 mcg/dL Percent Iron Saturation 16.4 L 22-44 % Ferritin 899 H 15-150 ng/mL Thyroid Stimulating Hormone (TSH) 1.29 0.36-3.74 uIU/mL Test 04/10/25 14:45 Range/Units Urine Color LIGHT-ORANGE YELLOW Urine Appearance TURBID CLEAR Urine pH 5.5 5.0-8.0 Urine Specific [place] 1.013 1.001-1.031 Urine Protein 50 H NEGATIVE mg/dL Urine Glucose (UA) NEGATIVE NEGATIVE mg/dL Urine Ketones NEGATIVE NEGATIVE mg/dL Urine Occult Blood LARGE H NEGATIVE Urine Nitrate NEGATIVE NEGATIVE Urine Bilirubin NEGATIVE NEGATIVE mg/dL Urine Urobilinogen 0.2 0.2-1.0 mg/dL Urine Leukocyte Esterase NEGATIVE NEGATIVE Nicole/uL Urine RBC >100 H 0-1 /HPF Urine WBC 2-5 H 0-1 /HPF Urine Squamous Epithelial Cells None Seen 0-2 /HPF Urine Bacteria Few None Seen /HPF Urine Osmolality 347 50-1200 mOsm/kg Urine Random Sodium 49 40-220 mmol/l Urine Random Potassium 54 25-125 mmol/L Urine Random Chloride 72 L 110-250 mmol/L DIAGNOSIS/RADIOLOGY: PATIENT: LORE OCONNELL ACCT: [id number] LOC: [facility] U: [id number] AGE/SX: 84/F ROOM: Formerly named [facility] RE04/06/[address]: INDERJIT CRISTOBAL MD : 1940 BED: 1 DIS: STATUS: ADM IN TLOC: SPEC: [id number] EKATERINA: 04/08/25-1529 STATUS: COMP REQ: [id number] RECD: 04/08/25 [facility] DR: CASSY BATES MD SOURCE: SPUTUM ENTR: 04/08/25-[address]: INDERJIT CRISTOBAL MD SPDESC: MAIN WEBBER MD, LUIS A MD SCHWARCZ,TOMASA Luna MD ORDERED: RESP CULTURE ---- -------- Procedure Result Bhupinder Date-Time GRAM STAIN Final 04/09/25-1122 [facility] GRAM STAIN RESULT: GOOD SPECIMEN [ <10 SEC's/LPF and >25 PMN's/LPF ] 2+ YEAST 1+ GRAM POSITIVE COCCI RESPIRATORY CULTURE Final 04/11/25-1044 [facility] COLONY DESCRIPTION: REPORT 1: 2+ YEAST, [facility] [employer] STUDIES TO CONTINUE REPORT 2: NO FURTHER WORK-UP DONE [facility] [employer] ASSESSMENT: Hypoxic respiratory failure, requiring intubation. Pneumonia. Septic shock. Anemia, POA requiring blood transfusion. Right retroperitoneal hematoma. Right hydronephrosis. Acute on chronic renal failure. Elevated liver enzymes, improved. Morbid obesity. Diabetes mellitus. PLAN: Continue on linezolid IV. Continue on Meropenem. Continues on Doxycycline. Continue GI prophylaxis. Vasopressors were stopped today. Continue ventilatory support. Continue diuretics. General surgeon has evaluated patient. This case was reviewed and discussed with my supervising physician Dr. Bates and the above assessment and plan was formulated and agreed upon. ATTESTATION BY PHYSICIAN I have seen and examined the patient. I reviewed the documentation, medical decision making, and treatment plan as noted by the mid-level provider above. I agree with the findings and plan of care. CASSY BATES MD, [facility] Apr 12, 2025 11:07
[2025-04-12] MEDS ORDERED: ZIPRASIDONE MESYLATE 20 MG/VIAL IM ONE (17:30)
--- NOTE | 2025-04-12 18:00 | NUR ---
PT NOT FOLLOWING COMMANDS, PT TRYING TO PULL ON ET TUBE , OG TUBE , PER DR. YOUNGBLOOD PT TO HAVE PRECEDEX STARTED PER PROTOCOL.
--- NOTE | 2025-04-12 18:16 | PN ---
PROGRESS NOTE PROGRESS NOTE DATE OF PROGRESS NOTE: 04/12/25 SUBJECTIVE: No new complaints VITAL SIGNS Vital Signs Date Time Temp Pulse Resp B/P (MAP) Pulse Ox O2 Delivery O2 Flow Rate FiO2 04/12/25 18:10 91 50 04/12/25 17:12 136/97 04/12/25 16:38 97.7 04/12/25 16:00 99 Ventilator+ 50 ETT Piece+ 04/12/25 16:00 18 PHYSICAL EXAM: PHYSICAL EXAM: GENERAL: 84-year-old female who is intubated. HEENT: ET tube, EOMI, Sclera non icteric, moist mucosa NECK: Supple, no JVD, trachea midline LUNGS: Clear breath sounds bilaterally. No wheezes HEART: Irregular rate. Normal S1 and S2, without murmurs ABD: Abdomen soft, nontender. Bowel sounds present EXT: No clubbing cyanosis or edema NEURO: Patient is sedated LABORATORY: Laboratory Result(s) Test 04/12/25 00:21 04/12/25 03:10 04/12/25 04:11 04/12/25 11:27 Whole Blood Glucose 207 MG/DL (70-110) 184 MG/DL (70-110) Blood Gas Specimen Type Arterial Arterial Blood pH 7.480 (7.350-7.450) Arterial Blood Partial Pressure CO2 39 mmHg (32-45) Arterial Blood Partial Pressure O2 63.2 mmHg (83.0-108.0) Arterial Blood HCO3 28.2 mmol/L (21.0-28.0) Arterial Blood Oxygen Saturation 93.6 % (94.0-98.0) Arterial Blood Base Excess 4.6 mmol/L (-2.0-3.0) Blood Gas Temperature 37.0 CELSIUS (35.5-37.0) Blood Gas Respiration Rate 18.0 min. Blood Gas Vent Mode AC (ROOM AIR) FiO2 40.0 % Blood Gas Tidal Volume 450 ml Blood Gas PEEP 5 cm H2O Blood Gas Specimen Comment [facility] White Blood Count 16.2 K/uL (4.8-10.8) Red Blood Count 2.58 MIL/uL (4.00-5.50) Hemoglobin 8.3 g/dL (12.0-16.0) Hematocrit 25.5 % (36-48) Mean Corpuscular Volume 98.8 fL (79-99) Mean Corpuscular Hemoglobin 32.2 pg (27.0-33.0) Mean Corpuscular Hemoglobin Concent 32.5 g/dL (32.0-36.0) Red Cell Distribution Width 18.6 % (11.0-15.5) Platelet Count 119 K/uL (130-400) Mean Platelet Volume 12.2 fL (7.5-10.5) Immature Granulocyte % (Auto) 0.6 % (0-1) Neutrophils (%) (Auto) 93.8 % (40.0-77.0) Lymphocytes (%) (Auto) 0.6 % (21.0-51.0) Monocytes (%) (Auto) 4.0 % (3.0-13.0) Eosinophils (%) (Auto) 0.6 % (0.0-8.0) Basophils (%) (Auto) 0.4 % (0.0-5.0) Neutrophils # (Auto) 15.2 K/uL (1.8-7.7) Lymphocytes # (Auto) 0.1 K/uL (1.0-4.8) Monocytes # (Auto) 0.7 K/uL (0.1-1.0) Eosinophils # (Auto) 0.10 K/uL (0.00-0.70) Basophils # (Auto) 0.07 K/uL (0.00-0.20) Absolute Immature Granulocyte (auto 0.09 K/uL (0-1) Nucleated Red Blood Cells 6.9 % (0.0-0.19) Prothrombin Time 16.1 SEC (9.6-11.6) Prothromb Time International Ratio 1.59 (0.85-1.15) Activated Partial Thromboplast Time 37.4 SEC (26.3-35.5) Sodium Level 142 mmol/L (136-145) Potassium Level 4.5 mmol/L (3.5-5.1) Chloride Level 101 mmol/L (101-111) Carbon Dioxide Level 29 mmol/L (21-32) Blood Urea Nitrogen 83 mg/dL (7-18) Creatinine 3.0 mg/dL (0.5-1.0) Glomerular Filtration Rate Calc 15 mL/min (>90) Random Glucose 201 mg/dL (70-105) Lactic Acid Level 2.9 mmol/L (0.8-2.5) Total Calcium 7.1 mg/dL (8.5-10.1) Phosphorus Level 6.5 mg/dL (2.5-4.9) Magnesium Level 1.80 mg/dL (1.80-2.40) Total Bilirubin 1.4 mg/dL (0.2-1.0) Aspartate Amino Transf (AST/SGOT) 62 U/L (10-37) Alanine Aminotransferase (ALT/SGPT) 259 U/L (12-78) Alkaline Phosphatase 168 U/L (50-136) Ammonia 32 umol/L (11-32) Total Protein 4.4 g/dL (6.0-8.3) Albumin 1.7 g/dL (3.5-5.0) Test 04/12/25 15:50 Whole Blood Glucose 139 MG/DL (70-110) INPATIENT MEDS: Current Medications Medications Dose Ordered Sig/Asif Start Time Stop Time Status Last Admin Dextrose 50 ml AD PRN 04/06/25 16:30 05/06/25 16:29 04/07/25 16:56 Glucagon 1 mg AD PRN 04/06/25 16:30 05/06/25 16:29 Pantoprazole Sodium 40 mg BID 04/07/25 09:00 05/07/25 08:59 04/12/25 08:55 Norepinephrine Bitartrate 32 mg/ Sodium Chloride 250 ml @ 0 mls/hr PROTOCOL 04/07/25 08:30 05/07/25 08:29 04/08/25 01:59 Ipratropium [place] 0.5 mg [id number] 04/07/25 12:00 05/07/25 11:59 04/12/25 18:12 Midazolam HCl 2 mg Q2HPRN PRN 04/07/25 16:00 05/07/25 15:59 04/12/25 17:05 Magnesium Sulfate 50 ml @ 0 mls/hr PROTOCOL 04/09/25 05:00 05/09/25 04:59 04/12/25 08:56 Calcium Gluconate 1 gm PROTOCOL 04/09/25 05:00 05/09/25 04:59 04/09/25 05:17 Linezolid 300 ml @ 150 mls/hr Q12H 04/09/25 16:30 04/19/25 16:29 04/12/25 16:03 Furosemide 100 mg/ Sodium Chloride 100 ml @ 15 mls/hr PROTOCOL 04/10/25 11:30 05/10/25 11:29 04/12/25 16:04 Dobutamine HCl/ Dextrose 250 ml @ 42.483 mls/ hr PROTOCOL 04/10/25 11:30 05/10/25 11:29 04/12/25 17:12 Doxycycline Hyclate 250 ml @ 125 mls/hr Q12H 04/10/25 11:30 04/20/25 11:29 04/12/25 11:40 Insulin Human Regular INSULIN SLIDING SCAL... Q6H6 04/10/25 12:00 05/10/25 11:59 04/12/25 11:44 Thiamine HCl 100 mg DAILY 04/11/25 09:00 05/11/25 08:59 04/12/25 08:56 Vitamin B Complex/ Vit C/Folic Acid 1 cap DAILY 04/11/25 09:00 05/11/25 08:59 04/12/25 08:56 Meropenem 1 gm Q24H 04/11/25 02:00 04/21/25 01:59 04/12/25 01:29 Epoetin Prashanth-epbx 10,000 unit [id number] 04/12/25 09:00 05/12/25 08:59 04/12/25 08:56 Methylprednisolone Sodium Succinate 40 mg Q6H 04/11/25 16:00 05/11/25 15:59 04/12/25 16:03 Fentanyl Citrate 25 mcg Q4H PRN 04/12/25 12:30 05/12/25 12:29 04/12/25 17:12 Artificial Tears 2 DROPS Q4H 04/12/25 17:00 05/12/25 16:59 PLAN: Acute hypoxic respiratory failure Severe sepsis with shock Severe metabolic acidosis Hospital-acquired pneumonia Acute complicated cystitis Severe anemia, requiring transfusion Acute on chronic kidney disease Atrial fibrillation on chronic anticoagulation therapy Dilated cardiomyopathy ejection fraction 35-40% with moderate pulmonary hypotension Remote CVA Hx of Right lower extremity DVT Right knee arthroplasty hx. Plan: Continue adjustments to vent, Solu-Medrol 60 q.6 She is on Merrem and vancomycin Continue with Mycafungin Correcting electrolytes Discontinue Precedex Lactic acid level CT of chest w/o contrast, CT of abdomen and pelvis w/o contrast, CT w/o of right knee. INDERJIT CRISTOBAL MD Apr 12, 2025 18:16
[2025-04-12] MEDS: ARTIFICAL TEARS SOL 15 ML OU SCH (18:17)
--- NOTE | 2025-04-12 19:53 | PN ---
[facility] PROGRESS NOTE Date Patient Seen: Apr 12, 2025 Time of Visit: 19:50 Supervising Physician: SHADE YOUNGBLOOD MD Primary Care Physician: JESUS MENDOZA MD Outpatient Specialists: [ ] Inpatient Consults: BIS PROBLEM LIST: Large right retroperitoneal hematoma displacing the right kidney, present on adm ission Acute hypoxic respiratory failure present on admission currently on mechanical ventilatory support via endotracheal tube Severe sepsis with shock Severe metabolic acidosis Hospital-acquired pneumonia Acute complicated cystitis Severe anemia, requiring transfusion Acute on chronic kidney disease Atrial fibrillation on chronic anticoagulation therapy Dilated cardiomyopathy ejection fraction 35-40% with moderate pulmonary hypotension Remote CVA Hx of Right lower extremity DVT History of right TKA Suspected AICD malfunction Status post AICD INTERVAL HISTORY: Patient is seen and evaluated. Events of the last 24 hours noted she remains on Lasix and dobutamine. Slight improvement in her urinary output. More awake, following commands. Pacemaker was interrogated and no acute findings noted Patient remains mechanical ventilated via endotracheal tube, less congestion NG tube in place, tolerating feedings Creatinine levels have remained essentially the same Pending urology consult Remains on fentanyl at 75 mcg FiO2 requirement today is 50% Patient on IV iron and Procrit REVIEW OF SYSTEMS: Patient on mechanical ventilatory support, opens eyes on command and tracts and nods understanding. PHYSICAL EXAM: GENERAL: 84-year-old female who is intubated. ET tube in place HEENT: ET tube, EOMI, Sclera non icteric, moist mucosa NECK: Supple, no JVD, trachea midline LUNGS: Clear breath sounds bilaterally. No wheezes HEART: Irregular rate. Normal S1 and S2, without murmurs ABD: Abdomen soft, nontender. Bowel sounds present large right retroperitoneal hematoma EXT: No clubbing cyanosis or edema NEURO: Patient is sedated Vital Signs (last 8hr) Date Time Temp Pulse Resp B/P (MAP) Pulse Ox O2 Delivery O2 Flow Rate FiO2 04/12/25 18:45 91 18 141/79 (99) 98 04/12/25 18:30 91 18 142/78 (99) 98 04/12/25 18:17 141/83 04/12/25 18:15 91 18 150/81 (104) 97 04/12/25 18:10 91 50 04/12/25 18:00 91 18 128/80 (96) 99 04/12/25 17:45 91 18 119/86 (97) 100 04/12/25 17:30 91 18 117/86 (96) 100 04/12/25 17:15 91 18 121/87 (98) 100 04/12/25 17:12 136/97 04/12/25 17:00 91 18 114/90 (98) 98 04/12/25 16:45 91 18 153/99 (117) 100 04/12/25 16:38 97.7 04/12/25 16:37 50 04/12/25 16:30 91 21 143/62 (89) 93 04/12/25 16:15 91 19 123/78 (93) 95 04/12/25 16:00 99 Ventilator+ 50 N/A ETT Piece+ 04/12/25 16:00 91 18 132/64 (86) 93 04/12/25 15:45 91 18 117/60 (79) 100 04/12/25 15:30 91 19 135/68 (90) 100 04/12/25 15:30 91 50 04/12/25 15:15 91 21 119/87 (98) 95 04/12/25 15:00 91 18 110/55 (73) 100 04/12/25 14:30 91 18 98/60 (73) 100 04/12/25 14:00 91 18 102/76 (85) 100 04/12/25 13:45 91 18 98/60 (73) 100 04/12/25 13:30 91 18 107/62 (77) 100 04/12/25 13:15 91 18 113/64 (80) 100 04/12/25 13:00 95 18 111/64 (80) 100 04/12/25 12:45 109 18 103/63 (76) 100 04/12/25 12:30 94 18 101/57 (72) 100 04/12/25 12:15 94 18 115/61 (79) 100 04/12/25 12:00 87 18 125/65 (85) 98 04/12/25 12:00 99 Ventilator+ 50 N/A ETT Piece+ 04/12/25 11:58 98.6 LABS: Hematology Labs: Test 04/12/25 04:11 04/11/25 04:49 Range/Units White Blood Count 16.2 H 4.8-10.8 K/uL Red Blood Count 2.58 L 4.00-5.50 MIL/uL Hemoglobin 8.3 L 12.0-16.0 g/dL Hematocrit 25.5 L 36-48 % Mean Corpuscular Volume 98.8 79-99 fL Mean Corpuscular Hemoglobin 32.2 27.0-33.0 pg Mean Corpuscular Hemoglobin Concent 32.5 32.0-36.0 g/dL Red Cell Distribution Width 18.6 H 11.0-15.5 % Platelet Count 119 L 130-400 K/uL Mean Platelet Volume 12.2 H 7.5-10.5 fL Immature Granulocyte % (Auto) 0.6 0-1 % Neutrophils (%) (Auto) 93.8 H 40.0-77.0 % Lymphocytes (%) (Auto) 0.6 L 21.0-51.0 % Monocytes (%) (Auto) 4.0 3.0-13.0 % Eosinophils (%) (Auto) 0.6 0.0-8.0 % Basophils (%) (Auto) 0.4 0.0-5.0 % Neutrophils # (Auto) 15.2 H 1.8-7.7 K/uL Lymphocytes # (Auto) 0.1 L 1.0-4.8 K/uL Monocytes # (Auto) 0.7 0.1-1.0 K/uL Eosinophils # (Auto) 0.10 0.00-0.70 K/uL Basophils # (Auto) 0.07 0.00-0.20 K/uL Absolute Immature Granulocyte (auto 0.09 0-1 K/uL Nucleated Red Blood Cells 6.9 H 0.0-0.19 % Segmented Neutrophils % 74 H 40-70 % Band Neutrophils % 19 H 0-2 % Monocytes % (Manual) 7 2-9 % Chemistry Labs: Test 04/12/25 15:50 04/12/25 04:11 04/11/25 04:49 Range/Units Whole Blood Glucose 139 H 70-110 MG/DL Sodium Level 142 136-145 mmol/L Potassium Level 4.5 3.5-5.1 mmol/L Chloride Level 101 101-111 mmol/L Carbon Dioxide Level 29 21-32 mmol/L Blood Urea Nitrogen 83 *H 7-18 mg/dL Creatinine 3.0 H 0.5-1.0 mg/dL Glomerular Filtration Rate Calc 15 >90 mL/min Random Glucose 201 H 70-105 mg/dL Lactic Acid Level 2.9 H 0.8-2.5 mmol/L Total Calcium 7.1 L 8.5-10.1 mg/dL Phosphorus Level 6.5 H 2.5-4.9 mg/dL Magnesium Level 1.80 1.80-2.40 mg/dL Total Bilirubin 1.4 H 0.2-1.0 mg/dL Aspartate Amino Transf (AST/SGOT) 62 H 10-37 U/L Alanine Aminotransferase (ALT/SGPT) 259 #H 12-78 U/L Alkaline Phosphatase 168 H 50-136 U/L Ammonia 32 # 11-32 umol/L Total Protein 4.4 L 6.0-8.3 g/dL Albumin 1.7 L 3.5-5.0 g/dL Uric Acid 9.9 H 2.6-7.2 mg/dL Iron Level 29 L 50-170 mcg/dL Total Iron Binding Capacity 176 L 250-450 mcg/dL Percent Iron Saturation 16.4 L 22-44 % Ferritin 899 H 15-150 ng/mL Thyroid Stimulating Hormone (TSH) 1.29 0.36-3.74 uIU/mL Coagulation Labs: Test 04/12/25 04:11 Range/Units Prothrombin Time 16.1 H 9.6-11.6 SEC Prothromb Time International Ratio 1.59 H 0.85-1.15 Activated Partial Thromboplast Time 37.4 H 26.3-35.5 SEC DIAGNOSTICS / RADIOLOGY RESULTS: Ultrasound shows a small right kidney with hydronephrosis Chest x-ray shows less pulmonary congestion with a very small effusion to the left lung PLAN Start weaning her off fentanyl We will start fentanyl 25 mcg every 4 hours IV and wean her off from the drip Adjust FiO2 settings on the ventilator Continue antibiotic treatment Pending urology consult Family updated prognosis guarded NEURO: Minimize central acting medications as possible. Fall Precautions. Well lighted room through the day and minimize interruptions through the night to prevent acute delirium. PULMONARY: On mechanical ventilator support via endotracheal tube at this time CARDIOVASCULAR: Follow hemodynamics. Titrate vasopressor to keep MAP >65 or systolic blood pressure >95mmHg DIPS: [ Levophed ] GI & NUTRITION: Continue nutritional support Aspirations precautions Prokinetic agents and laxatives as needed KIDNEYS & ELECTROLYTES: Strict monitoring of intake and output Daily weights Avoid nephrotoxic agents Monitor electrolytes and replace as needed Goal urine output of 30mL/hr or 0.5mL/kg/hr ENDOCRINE: Maintain blood glucose between 100-180 at all times. Insulin sliding scale for blood glucose management INFECTIOUS DISEASE: Trend temperature. Pittman-culture if febrile. Micro: [Pending results ] Antibiotics: [ As per I and D] HEMATOLOGY & COAGULATION: Monitor H&H. Keep Hgb > 7 Transfuse 1 unit of PRBC for Hgb < 7 Transfuse 1 pack of platelets of platelets < 20, 000 Watch for any signs and symptoms of bleeding SKIN: Pressure ulcer prevention per facility protocol Rehab: PT/OT Prophylaxis: GI: [ Protonix 40 mg IV b.i.d.] DVT: [SCDs to the lower extremities ] Code Status: Full Resuscitation Disposition: [Continue medical management in the ICU ] Total critical care time 35 minutes I personally scribed for SHADE YOUNGBLOOD MD ([email or web address]) on 04/12/25 at 19:53. Electronically submitted by Jesus Camargo ([facility]). SHADE YOUNGBLOOD MD Apr 12, 2025 19:53
[2025-04-13] VITALS (108 sets, daily range): BP systolic 87–152; BP diastolic 38–120; PULSE 73–92; RESP 16–21; TEMP 97.6–98.7; O2SAT 92–100
[2025-04-13 04:18] LABS: ABG BASE EXCESS 3.6 mmol/L (-2.0-3.0); ABG HCO3 26.8 mmol/L (21.0-28.0); ABG OXYGEN SATURATION 96.8 % (94.0-98.0); ABG PCO2 36 mmHg (32-45); ABG PH 7.488 (7.350-7.450); PO2, ARTERIAL BG 81.9 mmHg (83.0-108.0); TEMPERATURE, CELSIUS BG 37.0 CELSIUS (35.5-37.0); VENT MODE, BG AC VC (ROOM AIR)
[2025-04-13 04:25] LABS: IMMATURE GRANULOCYTE ABSOLUTE 0.18 K/uL (0-1); NUCLEATED RED BLOOD CELLS 3.9 % (0.0-0.19); PLATELET COUNT (AUTO) 111 K/uL (130-400); RED BLOOD CELL COUNT(AUTO) 2.36 MIL/uL (4.00-5.50); RED CELL DISTRIBUTION WIDTH 19.1 % (11.0-15.5); WHITE BLOOD COUNT (AUTO) 23.0 K/uL (4.8-10.8)
[2025-04-13 04:39] LABS: INR 1.51 (0.85-1.15)
[2025-04-13 04:59] LABS: ASPARTATE AMINOTRANSFERASE 35.0 U/L (10-37); CREATININE 3.2 mg/dL (0.5-1.0); GLOMERULAR FILTR. RATE CALC 14.0 mL/min (>90); GLUCOSE,RANDOM 186.0 mg/dL (70-105); PHOSPHORUS 6.9 mg/dL (2.5-4.9); SODIUM SERUM 141.0 mmol/L (136-145); TOTAL PROTEIN, SERUM 4.0 g/dL (6.0-8.3)
[2025-04-13 05:09] LABS: UREA NITROGEN, BLOOD 90.0 mg/dL (7-18)
--- NOTE | 2025-04-13 06:09 | HMCIMG ---
EXAM: CR Chest, 1 View. CLINICAL HISTORY: chf COMPARISON: 04/11/2025. FINDINGS: Mild cardiomegaly with central pulmonary venous congestion in both lungs. Inhomogeneous radiopacities in the left lower and right mid lungs, suggestive of patchy consolidations. Blunting of the left costophrenic angle, suggestive of pleural effusion. No pleural effusion on the right side in the current study. An endotracheal tube was noted within the trachea with its distal end located approximately 4 cm proximal to the juanito. Nasogastric tube noted coursing along the esophagus with its distal end in the stomach; however, the distal sidehole is in the distal one-third of the thoracic esophagus. There is no pneumothorax. A cardiac pacemaker is noted on the left side with intact leads. No acute osseous abnormality is seen. IMPRESSION: Compared to the previous chest radiograph dated 04/11/2025. Mild cardiomegaly with central pulmonary venous congestion in both lungs is unchanged. Patchy consolidations in the left lower and right mid-lungs are unchanged. Mild left pleural effusion is unchanged. An endotracheal tube is noted within the trachea with its distal end located approximately 4 cm proximal to the juanito. Nasogastric tube noted coursing along the esophagus with its distal end in the stomach; however, the distal sidehole is in the distal one-third of the thoracic esophagus. /[place]aber
--- NOTE | 2025-04-13 09:37 | HMCIMG ---
EXAM: CR Chest, 1 View. CLINICAL HISTORY: CHF COMPARISON: 04/12/2025 FINDINGS: The ET tube tip is 4.4 cm away from the juanito. The nasogastric tube is seen below the left hemidiaphragm. LUNGS: Left basilar atelectasis. Otherwise, the lungs are essentially clear. PLEURAL SPACES: No pneumothorax. Stable small left pleural effusion. MEDIASTINUM: Mild cardiomegaly with interval reduction in the central pulmonary venous congestion in both lungs. The pacemaker leads overlie the right atrium and right ventricle. BONES: No acute osseous abnormality. IMPRESSION: 1. Mild cardiomegaly with interval reduction in central pulmonary venous congestion. 2. Stable small left pleural effusion. 3. ET tube tip 4.4 cm from juanito. 4. Nasogastric tube below the left hemidiaphragm. /[place]
--- NOTE | 2025-04-13 13:08 | PN ---
[facility] PROGRESS NOTE Date Patient Seen: Apr 13, 2025 Time of Visit: 13:04 Supervising Physician: NINOSKA WALTON MD Primary Care Physician: JESUS MENDOZA MD Outpatient Specialists: [ ] Inpatient Consults: BIS PROBLEM LIST: Large right retroperitoneal hematoma displacing the right kidney, present on admission Acute hypoxic respiratory failure present on admission currently on mechanical ventilatory support via endotracheal tube Severe sepsis with shock Severe metabolic acidosis Hospital-acquired pneumonia Acute complicated cystitis Severe anemia, requiring transfusion Acute on chronic kidney disease Atrial fibrillation on chronic anticoagulation therapy Dilated cardiomyopathy ejection fraction 35-40% with moderate pulmonary hypotension Remote CVA Hx of Right lower extremity DVT History of right TKA Suspected AICD malfunction Status post AICD INTERVAL HISTORY: Mrs. Howell remains in the ICU She is critically ill, on artificial life support via mechanical ventilator with ETT Off Fentanyl, remains on low dose Precedex Urine output is low Creatinine is up to 3.2 No seizures, no fevers Still on Lasix drip Still on Dobutamine drip Her FiO2 is 50% REVIEW OF SYSTEMS: On mechanical ventilator support, non verbal. PHYSICAL EXAM: GENERAL: 84-year-old female who is intubated. ET tube in place HEENT: ET tube, EOMI, Sclera non icteric, moist mucosa NECK: Supple, no JVD, trachea midline LUNGS: Decreased breath sounds, no wheezing. HEART: Irregular rate. Normal S1 and S2, without murmurs ABD: Abdomen soft, nontender. Bowel sounds present large right retroperitoneal hematoma EXT: No clubbing cyanosis or edema NEURO: Patient is sedated Vital Signs (last 8hr) Date Time Temp Pulse Resp B/P (MAP) Pulse Ox O2 Delivery O2 Flow Rate FiO2 04/13/25 11:35 98.2 04/13/25 11:31 86 50 04/13/25 11:01 91 18 04/13/25 09:55 152/102 04/13/25 09:45 91 18 109/91 (97) 87 50 04/13/25 09:45 92 50 04/13/25 09:30 86 18 152/102 (119) 91 50 04/13/25 09:15 91 18 105/77 (86) 100 50 04/13/25 09:00 92 19 142/91 (108) 84 50 04/13/25 08:45 91 19 140/95 (110) 99 50 04/13/25 08:30 84 20 110/43 (65) 98 50 04/13/25 08:16 97.5 04/13/25 08:15 91 19 98/38 (58) 90 50 04/13/25 08:00 91 18 116/52 (73) 100 50 04/13/25 07:45 81 18 101/42 (61) 100 50 04/13/25 07:30 91 18 105/41 (62) 97 50 04/13/25 07:15 86 18 97/67 (77) 96 50 04/13/25 07:00 81 18 109/71 (84) 98 50 04/13/25 06:30 85 18 04/13/25 06:18 85 50 04/13/25 06:15 86 18 121/67 (85) 100 04/13/25 06:00 80 18 112/69 (83) 99 04/13/25 05:45 91 18 87/46 (60) 98 04/13/25 05:30 91 18 93/56 (68) 99 04/13/25 05:15 91 18 96/47 (63) 98 LABS: Hematology Labs: Test 04/13/25 04:04 04/12/25 04:11 Range/Units White Blood Count 23.0 #H 4.8-10.8 K/uL Red Blood Count 2.36 L 4.00-5.50 MIL/uL Hemoglobin 7.5 L 12.0-16.0 g/dL Hematocrit 23.3 L 36-48 % Mean Corpuscular Volume 98.7 79-99 fL Mean Corpuscular Hemoglobin 31.8 27.0-33.0 pg Mean Corpuscular Hemoglobin Concent 32.2 32.0-36.0 g/dL Red Cell Distribution Width 19.1 H 11.0-15.5 % Platelet Count 111 L 130-400 K/uL Mean Platelet Volume 12.2 H 7.5-10.5 fL Immature Granulocyte % (Auto) 0.8 0-1 % Neutrophils (%) (Auto) 95.6 H 40.0-77.0 % Lymphocytes (%) (Auto) 1.0 L 21.0-51.0 % Monocytes (%) (Auto) 2.3 L 3.0-13.0 % Eosinophils (%) (Auto) 0.0 0.0-8.0 % Basophils (%) (Auto) 0.3 0.0-5.0 % Neutrophils # (Auto) 22.0 H 1.8-7.7 K/uL Lymphocytes # (Auto) 0.2 L 1.0-4.8 K/uL Monocytes # (Auto) 0.5 0.1-1.0 K/uL Eosinophils # (Auto) 0.00 0.00-0.70 K/uL Basophils # (Auto) 0.08 0.00-0.20 K/uL Absolute Immature Granulocyte (auto 0.18 0-1 K/uL Nucleated Red Blood Cells 3.9 H 0.0-0.19 % Chemistry Labs: Test 04/13/25 11:33 04/13/25 08:09 04/13/25 04:04 Range/Units Whole Blood Glucose 192 H 70-110 MG/DL Lactic Acid Level 2.8 H 0.8-2.5 mmol/L Sodium Level 141 136-145 mmol/L Potassium Level 3.9 3.5-5.1 mmol/L Chloride Level 100 L 101-111 mmol/L Carbon Dioxide Level 29 21-32 mmol/L Blood Urea Nitrogen 90 *H 7-18 mg/dL Creatinine 3.2 H 0.5-1.0 mg/dL Glomerular Filtration Rate Calc 14 >90 mL/min Random Glucose 186 H 70-105 mg/dL Total Calcium 7.5 L 8.5-10.1 mg/dL Phosphorus Level 6.9 H 2.5-4.9 mg/dL Magnesium Level 2.00 1.80-2.40 mg/dL Total Bilirubin 1.4 H 0.2-1.0 mg/dL Aspartate Amino Transf (AST/SGOT) 35 10-37 U/L Alanine Aminotransferase (ALT/SGPT) 174 #H 12-78 U/L Alkaline Phosphatase 162 H 50-136 U/L Ammonia 24 11-32 umol/L Total Protein 4.0 L 6.0-8.3 g/dL Albumin 1.7 L 3.5-5.0 g/dL Coagulation Labs: Test 04/13/25 04:04 Range/Units Prothrombin Time 15.4 H 9.6-11.6 SEC Prothromb Time International Ratio 1.51 H 0.85-1.15 Activated Partial Thromboplast Time 39.3 H 26.3-35.5 SEC DIAGNOSTICS / RADIOLOGY RESULTS: Bilateral pulmonary infiltrates on chest x-rays, no effusions PLAN Family updated, prognosis given Wean off Precedex Start spontaneous breathing trials once off sedation decrease Methylprednisolone to 40 mg IV BID for 3 days Then continue Methylprednisolone 40 mg IV QD for 3 days and then stop. NEURO: Minimize central acting medications as possible. Fall Precautions. Well lighted room through the day and minimize interruptions through the night to prevent acute delirium. PULMONARY: On mechanical ventilator support via endotracheal tube at this time CARDIOVASCULAR: Follow hemodynamics. Titrate vasopressor to keep MAP >65 or systolic blood pressure >95mmHg DIPS: [ Levophed ] GI & NUTRITION: Continue nutritional support Aspirations precautions Prokinetic agents and laxatives as needed KIDNEYS & ELECTROLYTES: Strict monitoring of intake and output Daily weights Avoid nephrotoxic agents Monitor electrolytes and replace as needed Goal urine output of 30mL/hr or 0.5mL/kg/hr ENDOCRINE: Maintain blood glucose between 100-180 at all times. Insulin sliding scale for blood glucose management INFECTIOUS DISEASE: Trend temperature. Pittman-culture if febrile. Micro: [Pending results ] Antibiotics: [ As per I and D] HEMATOLOGY & COAGULATION: Monitor H&H. Keep Hgb > 7 Transfuse 1 unit of PRBC for Hgb < 7 Transfuse 1 pack of platelets of platelets < 20, 000 Watch for any signs and symptoms of bleeding SKIN: Pressure ulcer prevention per facility protocol Rehab: PT/OT Prophylaxis: GI: [ Protonix 40 mg IV b.i.d.] DVT: [SCDs to the lower extremities ] Code Status: Full Resuscitation Disposition: [Continue medical management in the ICU ] Total critical care time 35 minutes Poor prognosis I personally scribed for NINOSKA QUINN MD ([email or web address]) on 04/13/25 at 13:08. Electronically submitted by Jesus Camargo ([email or web address]). NINOSKA QUINN MD Apr 13, 2025 13:08
--- NOTE | 2025-04-13 17:05 | PN ---
INFECTIOUS DISEASE PROGRESS NOTE Date of Service: Apr 13, 2025 SUBJECTIVE: This is an 84-year-old female patient who was seen and examined at bedside in room 218. Patient remains intubated with FiO2 50%. Now off sedation and wakes up and responds to simple questions asked by nodding head. Family member present at bedside. The WBC trended up to 23.0 but no no fever. Currently on Solu-Medrol IV every 6 hours, we will continue to monitor closely. Continues on linezolid IV and Meropenem and doxycycline. PHYSICAL EXAM EYES: Anicteric. Pupils equal and reactive. HENT: No oral thrush seen, moist Oral mucosa NECK: Supple, no JVD or thyromegaly. LUNGS: Mechanical ventilation. CARDIOVASCULAR: S1, S2 regular. No murmur heard. ABDOMEN: Soft, non tender, bowel sounds present, no organomegaly CENTRAL NERVOUS SYSTEM: Intubated and sedated. SKIN: No rashes, no swelling. LYMPHATICS: No peripheral lymphadenopathy MUSCULOSKELETAL: No joint swelling, erythema or tenderness. EXTREMITIES: No cyanosis or clubbing. Generalized edema. BACK: No deformity, no pressure ulcer. GENITOURINARY: No dysuria or hematuria, Mcdowell catheter. Vital Sign (Last 12 Hours) 04/13/25 04/13/25 04/13/25 04/13/25 05:15 05:30 05:45 06:00 Pulse 91 91 91 80 Resp 18 18 18 18 B/P (MAP) 96/47 (63) 93/56 (68) 87/46 (60) 112/69 (83) Pulse Ox 98 99 98 99 04/13/25 04/13/25 04/13/25 04/13/25 06:15 06:18 06:30 07:00 Pulse 86 85 85 81 Resp 18 18 18 B/P (MAP) 121/67 (85) 109/71 (84) Pulse Ox 100 98 FiO2 50 50 04/13/25 04/13/25 04/13/25 04/13/25 07:15 07:30 07:45 08:00 Pulse 86 91 81 Resp 18 18 18 B/P (MAP) 97/67 (77) 105/41 (62) 101/42 (61) Pulse Ox 96 97 100 99 O2 Delivery Ventilator+ FiO2 50 50 50 50 04/13/25 04/13/25 04/13/25 04/13/25 08:00 08:00 08:15 08:16 Temp 97.5 Pulse 91 91 Resp 18 19 B/P (MAP) 116/52 (73) 98/38 (58) Pulse Ox 100 90 FiO2 50 50 50 04/13/25 04/13/25 04/13/25 04/13/25 08:30 08:45 09:00 09:15 Pulse 84 91 92 91 Resp 20 19 19 18 B/P (MAP) 110/43 (65) 140/95 (110) 142/91 (108) 105/77 (86) Pulse Ox 98 99 84 100 FiO2 50 50 50 50 04/13/25 04/13/25 04/13/25 04/13/25 09:30 09:45 09:45 09:55 Pulse 86 92 91 Resp 18 18 B/P (MAP) 152/102 (119) 109/91 (97) 152/102 Pulse Ox 91 87 FiO2 50 50 50 04/13/25 04/13/25 04/13/25 04/13/25 10:00 10:15 10:30 10:45 Pulse 91 91 85 85 Resp 18 18 18 18 B/P (MAP) 112/99 (103) 121/109 (113) 130/120 (123) 121/102 (108) Pulse Ox 89 87 90 99 FiO2 50 50 50 50 04/13/25 04/13/25 04/13/25 04/13/25 11:00 11:00 11:01 11:15 Pulse 85 91 85 Resp 18 18 18 B/P (MAP) 104/60 102/60 (74) 104/60 (75) Pulse Ox 99 100 FiO2 50 50 04/13/25 04/13/25 04/13/25 04/13/25 11:30 11:31 11:35 11:45 Temp 98.2 Pulse 91 86 85 Resp 18 18 B/P (MAP) 98/66 (77) 104/65 (78) Pulse Ox 100 100 FiO2 50 50 50 04/13/25 04/13/25 04/13/25 04/13/25 12:00 12:00 12:15 12:30 Pulse 86 91 85 Resp 18 18 21 B/P (MAP) 108/61 (77) 141/69 (93) 139/61 (87) Pulse Ox 98 95 98 FiO2 50 50 50 50 04/13/25 04/13/25 04/13/25 04/13/25 12:30 12:45 13:00 13:15 Pulse 91 91 85 Resp 18 20 18 B/P (MAP) 134/56 (82) 135/56 (82) 146/77 (100) Pulse Ox 94 96 95 95 O2 Delivery Ventilator+ FiO2 50 50 50 04/13/25 04/13/25 04/13/25 04/13/25 13:30 13:45 14:00 14:05 Pulse 91 91 85 91 Resp 18 18 19 B/P (MAP) 125/61 (82) 115/62 (79) 122/57 (78) Pulse Ox 94 95 98 FiO2 50 50 50 50 04/13/25 04/13/25 04/13/25 14:15 14:30 16:51 Temp 98.4 Pulse 85 81 Resp 18 19 B/P (MAP) 119/56 (77) 119/57 (77) Pulse Ox 98 81 FiO2 50 94 Intake & Output (last 24hrs) 04/12/25 04/12/25 04/13/25 15:00 23:00 07:00 Intake Total 1127.4 ml 1070.4 ml 682.5 ml Output Total 400 ml 150 ml 800 ml Balance 727.4 ml 920.4 ml -117.5 ml LABS: Laboratory: Test 04/13/25 11:33 04/13/25 08:09 04/13/25 04:17 04/13/25 04:04 Range/Units Whole Blood Glucose 192 H 70-110 MG/DL Lactic Acid Level 2.8 H 0.8-2.5 mmol/L Blood Gas Specimen Type Arterial Arterial Blood pH 7.488 H 7.350-7.450 Arterial Blood Partial Pressure CO2 36 32-45 mmHg Arterial Blood Partial Pressure O2 81.9 L 83.0-108.0 mmHg Arterial Blood HCO3 26.8 21.0-28.0 mmol/L Arterial Blood Oxygen Saturation 96.8 94.0-98.0 % Arterial Blood Base Excess 3.6 H -2.0-3.0 mmol/L Blood Gas Temperature 37.0 35.5-37.0 CELSIUS Blood Gas Respiration Rate 18.0 min. Blood Gas Vent Mode AC VC ROOM AIR FiO2 50.0 % Blood Gas Tidal Volume 450 ml Blood Gas PEEP 5 cm H2O Blood Gas Specimen Comment RN,AL White Blood Count 23.0 #H 4.8-10.8 K/uL Red Blood Count 2.36 L 4.00-5.50 MIL/uL Hemoglobin 7.5 L 12.0-16.0 g/dL Hematocrit 23.3 L 36-48 % Mean Corpuscular Volume 98.7 79-99 fL Mean Corpuscular Hemoglobin 31.8 27.0-33.0 pg Mean Corpuscular Hemoglobin Concent 32.2 32.0-36.0 g/dL Red Cell Distribution Width 19.1 H 11.0-15.5 % Platelet Count 111 L 130-400 K/uL Mean Platelet Volume 12.2 H 7.5-10.5 fL Immature Granulocyte % (Auto) 0.8 0-1 % Neutrophils (%) (Auto) 95.6 H 40.0-77.0 % Lymphocytes (%) (Auto) 1.0 L 21.0-51.0 % Monocytes (%) (Auto) 2.3 L 3.0-13.0 % Eosinophils (%) (Auto) 0.0 0.0-8.0 % Basophils (%) (Auto) 0.3 0.0-5.0 % Neutrophils # (Auto) 22.0 H 1.8-7.7 K/uL Lymphocytes # (Auto) 0.2 L 1.0-4.8 K/uL Monocytes # (Auto) 0.5 0.1-1.0 K/uL Eosinophils # (Auto) 0.00 0.00-0.70 K/uL Basophils # (Auto) 0.08 0.00-0.20 K/uL Absolute Immature Granulocyte (auto 0.18 0-1 K/uL Nucleated Red Blood Cells 3.9 H 0.0-0.19 % Prothrombin Time 15.4 H 9.6-11.6 SEC Prothromb Time International Ratio 1.51 H 0.85-1.15 Activated Partial Thromboplast Time 39.3 H 26.3-35.5 SEC Sodium Level 141 136-145 mmol/L Potassium Level 3.9 3.5-5.1 mmol/L Chloride Level 100 L 101-111 mmol/L Carbon Dioxide Level 29 21-32 mmol/L Blood Urea Nitrogen 90 *H 7-18 mg/dL Creatinine 3.2 H 0.5-1.0 mg/dL Glomerular Filtration Rate Calc 14 >90 mL/min Random Glucose 186 H 70-105 mg/dL Total Calcium 7.5 L 8.5-10.1 mg/dL Phosphorus Level 6.9 H 2.5-4.9 mg/dL Magnesium Level 2.00 1.80-2.40 mg/dL Total Bilirubin 1.4 H 0.2-1.0 mg/dL Aspartate Amino Transf (AST/SGOT) 35 10-37 U/L Alanine Aminotransferase (ALT/SGPT) 174 #H 12-78 U/L Alkaline Phosphatase 162 H 50-136 U/L Ammonia 24 11-32 umol/L Total Protein 4.0 L 6.0-8.3 g/dL Albumin 1.7 L 3.5-5.0 g/dL Test 04/12/25 04:11 Range/Units DIAGNOSIS/RADIOLOGY: PATIENT: LORE OCONNELL ACCT: [id number] LOC: [facility] U: [id number] AGE/SX: 84/F ROOM: [facility] RE04/06/[address]: INDERJIT CRISTOBAL MD : 1940 BED: 1 DIS: STATUS: ADM IN TLOC: SPEC: [id number] EKATERINA: 04/08/25-1529 STATUS: COMP REQ: [id number] RECD: 04/08/25-[address]: CASSY BATES MD SOURCE: SPUTUM ENTR: 04/08/25-[address]: INDERJIT CRISTOBAL MD SPDESC: MAIN WEBBER MD, LUIS A MD SCHWARCZ, RICARDO M MD ORDERED: RESP CULTURE -- Procedure Result Bhupinder Date-Time GRAM STAIN Final 04/09/25-1122 MRL GRAM STAIN RESULT: GOOD SPECIMEN [ <10 SEC's/LPF and >25 PMN's/LPF ] 2+ YEAST 1+ GRAM POSITIVE COCCI RESPIRATORY CULTURE Final 04/11/25-1044 MRL COLONY DESCRIPTION: REPORT 1: 2+ YEAST, JOSH [facility]IC[facility] STUDIES TO CONTINUE REPORT 2: NO FURTHER WORK-UP DONE JOSH [facility] ASSESSMENT: Hypoxic respiratory failure, requiring intubation. Pneumonia. Septic shock. Anemia, POA requiring blood transfusion. Right retroperitoneal hematoma. Right hydronephrosis. Acute on chronic renal failure. Elevated liver enzymes, improved. Morbid obesity. Diabetes mellitus. PLAN: Continue on linezolid IV. Continue on Meropenem. Continues on Doxycycline. Continue GI prophylaxis. Continue ventilatory support. Continue diuretics. Continue critical care support. Continues on tube feedings. This case was reviewed and discussed with my supervising physician Dr. Bates and the above assessment and plan was formulated and agreed upon. ATTESTATION BY PHYSICIAN I have seen and examined the patient. I reviewed the documentation, medical decision making, and treatment plan as noted by the mid-level provider above. I agree with the findings and plan of care. CASSY BATES MD, [facility]TA [facility] Apr 13, 2025 17:05
--- NOTE | 2025-04-13 20:11 | PN ---
FOLLOWUP PROGRESS NOTE SUBJECTIVE: An 84-year-old female with a history of diabetes mellitus and hypertension. The patient with a history of known coronary artery disease. The patient initially admitted and found to have respiratory distress, requiring mechanical ventilation. She has had acute on chronic renal failure in the hospital. Creatinine continues to be elevated. She remains on the diuretics. Urine output is noted and she is being seen as a followup visit for all of the above. REVIEW OF SYSTEMS: She is intubated in the ICU. PHYSICAL EXAMINATION: VITAL SIGNS: Blood pressure is 117/74, pulse 80. GENERAL: She is a chronically ill female lying in bed on the medical floor. HEENT: Head is atraumatic. Pupils are equal, round and reactive to light. Oropharynx is without exudate. Nares clear. NECK: There is no JVP. There is no thyromegaly, no mass. CARDIOVASCULAR: Regular. There is no S3 or S4 gallop. LUNGS: Coarse with equal thoracic movement. ABDOMEN: Soft, nondistended, and nontender. EXTREMITIES: No clubbing or cyanosis. NEUROLOGICAL: She is awake. She is alert. LABORATORY DATA: Sodium 141, potassium 3.9, BUN 90, creatinine 3.2. Hemoglobin 7.5, hematocrit 23. IMPRESSION: * Acute on chronic renal failure. * Volume overload. * Respiratory failure. * History of retroperitoneal hemorrhage. PLAN: The patient continues with the diuretics. Urine output is noted. The patient has been a slow wean from the ventilator. There is no acute need for renal replacement therapy at this time. She remains on iron as well as Procrit for the anemia. The patient's family at the bedside. Multiple questions were all answered. TID: [id number] RECEIPT: [id number]
--- NOTE | 2025-04-13 20:26 | PN ---
PROGRESS NOTE PROGRESS NOTE DATE OF PROGRESS NOTE: 04/13/25 SUBJECTIVE: No new complaints VITAL SIGNS Vital Signs Date Time Temp Pulse Resp B/P (MAP) Pulse Ox O2 Delivery O2 Flow Rate FiO2 04/13/25 18:45 91 18 120/54 (76) 65 50 04/13/25 16:51 98.4 04/13/25 16:30 Ventilator+ 04/13/25 04:00 50 PHYSICAL EXAM: PHYSICAL EXAM: GENERAL: 84-year-old female who is intubated. HEENT: ET tube, EOMI, Sclera non icteric, moist mucosa NECK: Supple, no JVD, trachea midline LUNGS: Clear breath sounds bilaterally. No wheezes HEART: Irregular rate. Normal S1 and S2, without murmurs ABD: Abdomen soft, nontender. Bowel sounds present EXT: No clubbing cyanosis or edema NEURO: Patient is sedated LABORATORY: Laboratory Result(s) Test 04/13/25 00:25 04/13/25 04:04 04/13/25 04:17 04/13/25 05:21 Whole Blood Glucose 181 MG/DL (70-110) 173 MG/DL (70-110) White Blood Count 23.0 K/uL (4.8-10.8) Red Blood Count 2.36 MIL/uL (4.00-5.50) Hemoglobin 7.5 g/dL (12.0-16.0) Hematocrit 23.3 % (36-48) Mean Corpuscular Volume 98.7 fL (79-99) Mean Corpuscular Hemoglobin 31.8 pg (27.0-33.0) Mean Corpuscular Hemoglobin Concent 32.2 g/dL (32.0-36.0) Red Cell Distribution Width 19.1 % (11.0-15.5) Platelet Count 111 K/uL (130-400) Mean Platelet Volume 12.2 fL (7.5-10.5) Immature Granulocyte % (Auto) 0.8 % (0-1) Neutrophils (%) (Auto) 95.6 % (40.0-77.0) Lymphocytes (%) (Auto) 1.0 % (21.0-51.0) Monocytes (%) (Auto) 2.3 % (3.0-13.0) Eosinophils (%) (Auto) 0.0 % (0.0-8.0) Basophils (%) (Auto) 0.3 % (0.0-5.0) Neutrophils # (Auto) 22.0 K/uL (1.8-7.7) Lymphocytes # (Auto) 0.2 K/uL (1.0-4.8) Monocytes # (Auto) 0.5 K/uL (0.1-1.0) Eosinophils # (Auto) 0.00 K/uL (0.00-0.70) Basophils # (Auto) 0.08 K/uL (0.00-0.20) Absolute Immature Granulocyte (auto 0.18 K/uL (0-1) Nucleated Red Blood Cells 3.9 % (0.0-0.19) Prothrombin Time 15.4 SEC (9.6-11.6) Prothromb Time International Ratio 1.51 (0.85-1.15) Activated Partial Thromboplast Time 39.3 SEC (26.3-35.5) Sodium Level 141 mmol/L (136-145) Potassium Level 3.9 mmol/L (3.5-5.1) Chloride Level 100 mmol/L (101-111) Carbon Dioxide Level 29 mmol/L (21-32) Blood Urea Nitrogen 90 mg/dL (7-18) Creatinine 3.2 mg/dL (0.5-1.0) Glomerular Filtration Rate Calc 14 mL/min (>90) Random Glucose 186 mg/dL (70-105) Lactic Acid Level 2.7 mmol/L (0.8-2.5) Total Calcium 7.5 mg/dL (8.5-10.1) Phosphorus Level 6.9 mg/dL (2.5-4.9) Magnesium Level 2.00 mg/dL (1.80-2.40) Total Bilirubin 1.4 mg/dL (0.2-1.0) Aspartate Amino Transf (AST/SGOT) 35 U/L (10-37) Alanine Aminotransferase (ALT/SGPT) 174 U/L (12-78) Alkaline Phosphatase 162 U/L (50-136) Ammonia 24 umol/L (11-32) Total Protein 4.0 g/dL (6.0-8.3) Albumin 1.7 g/dL (3.5-5.0) Blood Gas Specimen Type Arterial Arterial Blood pH 7.488 (7.350-7.450) Arterial Blood Partial Pressure CO2 36 mmHg (32-45) Arterial Blood Partial Pressure O2 81.9 mmHg (83.0-108.0) Arterial Blood HCO3 26.8 mmol/L (21.0-28.0) Arterial Blood Oxygen Saturation 96.8 % (94.0-98.0) Arterial Blood Base Excess 3.6 mmol/L (-2.0-3.0) Blood Gas Temperature 37.0 CELSIUS (35.5-37.0) Blood Gas Respiration Rate 18.0 min. Blood Gas Vent Mode AC VC (ROOM AIR) FiO2 50.0 % Blood Gas Tidal Volume 450 ml Blood Gas PEEP 5 cm H2O Blood Gas Specimen Comment RN,AL Test 04/13/25 08:09 04/13/25 11:33 04/13/25 18:28 Lactic Acid Level 2.8 mmol/L (0.8-2.5) Whole Blood Glucose 192 MG/DL (70-110) 176 MG/DL (70-110) INPATIENT MEDS: Current Medications Medications Dose Ordered Sig/Asif Start Time Stop Time Status Last Admin Dextrose 50 ml AD PRN 04/06/25 16:30 05/06/25 16:29 04/07/25 16:56 Glucagon 1 mg AD PRN 04/06/25 16:30 05/06/25 16:29 Pantoprazole Sodium 40 mg BID 04/07/25 09:00 05/07/25 08:59 04/13/25 20:14 Norepinephrine Bitartrate 32 mg/ Sodium Chloride 250 ml @ 0 mls/hr PROTOCOL 04/07/25 08:30 05/07/25 08:29 04/08/25 01:59 Ipratropium [place] 0.5 mg [id number] 04/07/25 12:00 05/07/25 11:59 04/13/25 18:22 Midazolam HCl 2 mg Q2HPRN PRN 04/07/25 16:00 05/07/25 15:59 04/12/25 17:05 Magnesium Sulfate 50 ml @ 0 mls/hr PROTOCOL 04/09/25 05:00 05/09/25 04:59 04/12/25 08:56 Calcium Gluconate 1 gm PROTOCOL 04/09/25 05:00 05/09/25 04:59 04/09/25 05:17 Linezolid 300 ml @ 150 mls/hr Q12H 04/09/25 16:30 04/19/25 16:29 04/13/25 16:53 Furosemide 100 mg/ Sodium Chloride 100 ml @ 15 mls/hr PROTOCOL 04/10/25 11:30 05/10/25 11:29 04/13/25 14:54 Dobutamine HCl/ Dextrose 250 ml @ 42.483 mls/ hr PROTOCOL 04/10/25 11:30 05/10/25 11:29 04/13/25 18:26 Doxycycline Hyclate 250 ml @ 125 mls/hr Q12H 04/10/25 11:30 04/20/25 11:29 04/13/25 10:42 Insulin Human Regular INSULIN SLIDING SCAL... Q6H6 04/10/25 12:00 05/10/25 11:59 04/13/25 18:39 Thiamine HCl 100 mg DAILY 04/11/25 09:00 05/11/25 08:59 04/13/25 08:47 Vitamin B Complex/ Vit C/Folic Acid 1 cap DAILY 04/11/25 09:00 05/11/25 08:59 04/13/25 08:45 Meropenem 1 gm Q24H 04/11/25 02:00 04/21/25 01:59 04/13/25 03:03 Epoetin Prashanth-epbx 10,000 unit QMOWEFRSA 04/12/25 09:00 05/12/25 08:59 04/13/25 08:47 Fentanyl Citrate 25 mcg Q4H PRN 04/12/25 12:30 05/12/25 12:29 04/12/25 17:12 Artificial Tears 2 DROPS Q4H 04/12/25 17:00 05/12/25 16:59 04/13/25 20:18 Dexmedetomidine/ Sodium Chloride 400 mcg PROTOCOL 04/12/25 18:30 05/12/25 18:29 04/12/25 19:00 Methylprednisolone Sodium Succinate 40 mg Q12H9 04/13/25 21:00 05/13/25 20:59 PLAN: Acute hypoxic respiratory failure Severe sepsis with shock Severe metabolic acidosis Hospital-acquired pneumonia Acute complicated cystitis Severe anemia, requiring transfusion Acute on chronic kidney disease Atrial fibrillation on chronic anticoagulation therapy Dilated cardiomyopathy ejection fraction 35-40% with moderate pulmonary hypotension Remote CVA Hx of Right lower extremity DVT Right knee arthroplasty hx. Plan: Continue adjustments to vent, Solu-Medrol 60 q.6 She is on Merrem and vancomycin Continue with Mycafungin Correcting electrolytes Discontinue Precedex Lactic acid level CT of chest w/o contrast, CT of abdomen and pelvis w/o contrast, CT w/o of right knee. INDERJIT CRISTOBAL MD Apr 13, 2025 20:26
[2025-04-13] MEDS: Solu-medROL 40MG VIAL IVP SCH (21:19)
[2025-04-14] VITALS (107 sets, daily range): BP systolic 81–143; BP diastolic 42–97; PULSE 76–104; RESP 15–34; TEMP 97.4–98.6; O2SAT 93–100
[2025-04-14 08:49] LABS: ABG BASE EXCESS 5.4 mmol/L (-2.0-3.0); ABG HCO3 28.1 mmol/L (21.0-28.0); ABG OXYGEN SATURATION 95.0 % (94.0-98.0); ABG PCO2 35 mmHg (32-45); ABG PH 7.521 (7.350-7.450); PO2, ARTERIAL BG 66.3 mmHg (83.0-108.0); TEMPERATURE, CELSIUS BG 37.0 CELSIUS (35.5-37.0); VENT MODE, BG AC (ROOM AIR)
[2025-04-14 08:56] LABS: NUCLEATED RED BLOOD CELLS 0.7 % (0.0-0.19); PLATELET COUNT (AUTO) 121 K/uL (130-400); RED BLOOD CELL COUNT(AUTO) 2.32 MIL/uL (4.00-5.50); RED CELL DISTRIBUTION WIDTH 19.3 % (11.0-15.5)
[2025-04-14 09:01] LABS: WHITE BLOOD COUNT (AUTO) 31.3 K/uL (4.8-10.8)
[2025-04-14 09:07] LABS: CREATININE 3.3 mg/dL (0.5-1.0); GLOMERULAR FILTR. RATE CALC 13.0 mL/min (>90); GLUCOSE,RANDOM 267.0 mg/dL (70-105); SODIUM SERUM 139.0 mmol/L (136-145)
[2025-04-14 09:10] LABS: UREA NITROGEN, BLOOD 96.0 mg/dL (7-18)
[2025-04-14 09:51] LABS: LYMPHOCYTES % (MANUAL) 1 % (22-44); MAN.DIFF COMMENT-IMPRESSION MANUAL DIFFERENTIAL; MONOCYTES % (MANUAL) 1 % (2-9); SEGMENTED NEUTROPHILS % 98 % (40-70)
[2025-04-14 09:52] LABS: PLATELET MORPHOLOGY COMMENT SLIGHTLY DECREASED
--- NOTE | 2025-04-14 11:55 | PN ---
PROGRESS NOTE PROGRESS NOTE DATE OF PROGRESS NOTE: 04/14/25 SUBJECTIVE: gradual improvement VITAL SIGNS Vital Signs Date Time Temp Pulse Resp B/P (MAP) Pulse Ox O2 Delivery O2 Flow Rate FiO2 04/14/25 11:25 81 20 04/14/25 09:06 40 04/14/25 08:00 135/74 (94) 95 04/14/25 07:49 98.1 04/14/25 04:00 Ventilator+ 04/13/25 04:00 50 PHYSICAL EXAM: PHYSICAL EXAM: GENERAL: 84-year-old female who is intubated. HEENT: ET tube, EOMI, Sclera non icteric, moist mucosa NECK: Supple, no JVD, trachea midline LUNGS: Clear breath sounds bilaterally. No wheezes HEART: Irregular rate. Normal S1 and S2, without murmurs ABD: Abdomen soft, nontender. Bowel sounds present EXT: No clubbing cyanosis or edema NEURO: Patient is sedated LABORATORY: Laboratory Result(s) Test 04/13/25 18:28 04/13/25 23:20 04/14/25 05:24 04/14/25 08:38 Whole Blood Glucose 176 MG/DL (70-110) 168 MG/DL (70-110) 173 MG/DL (70-110) White Blood Count 31.3 K/uL (4.8-10.8) Red Blood Count 2.32 MIL/uL (4.00-5.50) Hemoglobin 7.5 g/dL (12.0-16.0) Hematocrit 22.5 % (36-48) Mean Corpuscular Volume 97.0 fL (79-99) Mean Corpuscular Hemoglobin 32.3 pg (27.0-33.0) Mean Corpuscular Hemoglobin Concent 33.3 g/dL (32.0-36.0) Red Cell Distribution Width 19.3 % (11.0-15.5) Platelet Count 121 K/uL (130-400) Mean Platelet Volume 12.1 fL (7.5-10.5) Segmented Neutrophils % 98 % (40-70) Lymphocytes % (Manual) 1 % (22-44) Monocytes % (Manual) 1 % (2-9) Nucleated Red Blood Cells 0.7 % (0.0-0.19) Differential Comment MANUAL DIFFERENTIAL White Cell Morphology Comment Platelet Morphology Comment SLIGHTLY DECREASED Red Blood Cell Morphology ANISO 1+ Sodium Level 139 mmol/L (136-145) Potassium Level 3.7 mmol/L (3.5-5.1) Chloride Level 98 mmol/L (101-111) Carbon Dioxide Level 28 mmol/L (21-32) Blood Urea Nitrogen 96 mg/dL (7-18) Creatinine 3.3 mg/dL (0.5-1.0) Glomerular Filtration Rate Calc 13 mL/min (>90) Random Glucose 267 mg/dL (70-105) Total Calcium 7.4 mg/dL (8.5-10.1) Magnesium Level 2.00 mg/dL (1.80-2.40) Test 04/14/25 08:46 Blood Gas Specimen Type Arterial Arterial Blood pH 7.521 (7.350-7.450) Arterial Blood Partial Pressure CO2 35 mmHg (32-45) Arterial Blood Partial Pressure O2 66.3 mmHg (83.0-108.0) Arterial Blood HCO3 28.1 mmol/L (21.0-28.0) Arterial Blood Oxygen Saturation 95.0 % (94.0-98.0) Arterial Blood Base Excess 5.4 mmol/L (-2.0-3.0) Blood Gas Temperature 37.0 CELSIUS (35.5-37.0) Blood Gas Respiration Rate 18.0 min. Blood Gas Vent Mode AC (ROOM AIR) FiO2 40.0 % Blood Gas Tidal Volume 450 ml Blood Gas PEEP 5 cm H2O Blood Gas Specimen Comment ANA MACKNA INPATIENT MEDS: Current Medications Medications Dose Ordered Sig/Asif Start Time Stop Time Status Last Admin Dextrose 50 ml AD PRN 04/06/25 16:30 05/06/25 16:29 04/07/25 16:56 Glucagon 1 mg AD PRN 04/06/25 16:30 05/06/25 16:29 Pantoprazole Sodium 40 mg BID 04/07/25 09:00 05/07/25 08:59 04/14/25 09:19 Norepinephrine Bitartrate 32 mg/ Sodium Chloride 250 ml @ 0 mls/hr PROTOCOL 04/07/25 08:30 05/07/25 08:29 04/08/25 01:59 Ipratropium [place] 0.5 mg [id number] 04/07/25 12:00 05/07/25 11:59 04/14/25 11:25 Midazolam HCl 2 mg Q2HPRN PRN 04/07/25 16:00 05/07/25 15:59 04/12/25 17:05 Magnesium Sulfate 50 ml @ 0 mls/hr PROTOCOL 04/09/25 05:00 05/09/25 04:59 04/12/25 08:56 Calcium Gluconate 1 gm PROTOCOL 04/09/25 05:00 05/09/25 04:59 04/09/25 05:17 Linezolid 300 ml @ 150 mls/hr Q12H 04/09/25 16:30 04/19/25 16:29 04/14/25 05:15 Furosemide 100 mg/ Sodium Chloride 100 ml @ 15 mls/hr PROTOCOL 04/10/25 11:30 05/10/25 11:29 04/14/25 05:43 Dobutamine HCl/ Dextrose 250 ml @ 42.483 mls/ hr PROTOCOL 04/10/25 11:30 05/10/25 11:29 04/14/25 02:31 Doxycycline Hyclate 250 ml @ 125 mls/hr Q12H 04/10/25 11:30 04/20/25 11:29 04/14/25 10:51 Insulin Human Regular INSULIN SLIDING SCAL... Q6H6 04/10/25 12:00 05/10/25 11:59 04/13/25 18:39 Thiamine HCl 100 mg DAILY 04/11/25 09:00 05/11/25 08:59 04/14/25 09:19 Vitamin B Complex/ Vit C/Folic Acid 1 cap DAILY 04/11/25 09:00 05/11/25 08:59 04/14/25 09:19 Meropenem 1 gm Q24H 04/11/25 02:00 04/21/25 01:59 04/14/25 02:30 Epoetin Prashanth-epbx 10,000 unit [id number] 04/12/25 09:00 05/12/25 08:59 04/13/25 08:47 Fentanyl Citrate 25 mcg Q4H PRN 04/12/25 12:30 05/12/25 12:29 04/12/25 17:12 Artificial Tears 2 DROPS Q4H 04/12/25 17:00 05/12/25 16:59 04/14/25 09:24 Dexmedetomidine/ Sodium Chloride 400 mcg PROTOCOL 04/12/25 18:30 05/12/25 18:29 04/12/25 19:00 Methylprednisolone Sodium Succinate 40 mg Q12H9 04/13/25 21:00 05/13/25 20:59 04/14/25 09:19 Gabapentin 100 mg TID 04/14/25 14:00 05/14/25 13:59 Hydromorphone HCl 0.2 mg Q4H PRN 04/14/25 11:30 04/19/25 11:29 PLAN: Hypoxic respiratory failure, requiring intubation. Pneumonia. Septic shock. Anemia, POA requiring blood transfusion. Right retroperitoneal hematoma. Right hydronephrosis. Acute on chronic renal failure. Elevated liver enzymes, improved. Morbid obesity. Diabetes mellitus. PLAN: Continue on linezolid IV. Continue on Meropenem. Continues on Doxycycline. Continue GI prophylaxis. Vasopressors were stopped today. Continue ventilatory support. Continue diuretics. General surgeon has evaluated patient. INDERJIT CRISTOBAL MD Apr 14, 2025 11:55
--- NOTE | 2025-04-14 12:28 | PN ---
[facility] PROGRESS NOTE Date Patient Seen: Apr 14, 2025 Time of Visit: 12:24 Supervising Physician: NINOSKA WALTON MD Primary Care Physician: JESUS MENDOZA MD Outpatient Specialists: [ ] Inpatient Consults: BIS PROBLEM LIST: Large right retroperitoneal hematoma displacing the right kidney, present on admission Acute hypoxic respiratory failure present on admission currently on mechanical ventilatory support via endotracheal tube Severe sepsis with shock Severe metabolic acidosis Hospital-acquired pneumonia Acute complicated cystitis Severe anemia, requiring transfusion Acute on chronic kidney disease Atrial fibrillation on chronic anticoagulation therapy Dilated cardiomyopathy ejection fraction 35-40% with moderate pulmonary hypotension Remote CVA Hx of Right lower extremity DVT History of right TKA Suspected AICD malfunction Status post AICD INTERVAL HISTORY: Patient is seen and evaluated in the ICU in room 218 Her family at bedside and the events of the last 24 hours noted and discussed with nurse Plan to extubate today, patient is off Precedex and is off pressors. She is awake and alert and following commands Patient has been undergoing spontaneous breathing trials at 40% FiO2 and she has good tidal volumes. I also reviewed her ABG results. Care urine output was 1.4 L in the last 12 [place] [address] and she continues with a creatinine of 3.2. REVIEW OF SYSTEMS: On mechanical ventilator support, non verbal. But she is able to nod yes and no and she is awake and following commands. PHYSICAL EXAM: GENERAL: 84-year-old female who is intubated. ET tube in place. Awake and alert, following commands. HEENT: ET tube, EOMI, Sclera non icteric, moist mucosa NECK: Supple, no JVD, trachea midline LUNGS: Decreased breath sounds, no wheezing. HEART: Irregular rate. Normal S1 and S2, without murmurs ABD: Abdomen soft, nontender. Bowel sounds present large right retroperitoneal hematoma EXT: 3+ edema to the upper extremities bilaterally with some weeping, 4+ edema to the lower extremities bilaterally. NEURO: Not sedated, following commands. Vital Signs (last 8hr) Date Time Temp Pulse Resp B/P (MAP) Pulse Ox O2 Delivery O2 Flow Rate FiO2 04/14/25 11: 81 20 04/14/25 09:06 91 40 04/14/25 08:00 91 22 135/74 (94) 95 40 04/14/25 07:49 98.1 04/14/25 07:45 91 20 143/91 (108) 93 40 04/14/25 07:30 85 19 118/46 (70) 94 40 04/14/25 07:22 40 04/14/25 07:15 91 24 123/47 (72) 91 50 04/14/25 07:00 91 18 127/49 (75) 96 50 04/14/25 06:12 91 18 04/14/25 06:09 91 50 04/14/25 05:30 91 19 116/63 (80) 90 04/14/25 05:30 91 19 116/86 (96) 100 04/14/25 05:15 91 18 114/56 (75) 94 04/14/25 05:00 91 18 114/82 (93) 96 04/14/25 04:45 85 18 116/90 (99) 99 04/14/25 04:30 91 18 117/71 (86) 95 LABS: Hematology Labs: Test 04/14/25 08:38 04/13/25 04:04 Range/Units White Blood Count 31.3 *H 4.8-10.8 K/uL Red Blood Count 2.32 L 4.00-5.50 MIL/uL Hemoglobin 7.5 L 12.0-16.0 g/dL Hematocrit 22.5 L 36-48 % Mean Corpuscular Volume 97.0 79-99 fL Mean Corpuscular Hemoglobin 32.3 27.0-33.0 pg Mean Corpuscular Hemoglobin Concent 33.3 32.0-36.0 g/dL Red Cell Distribution Width 19.3 H 11.0-15.5 % Platelet Count 121 L 130-400 K/uL Mean Platelet Volume 12.1 H 7.5-10.5 fL Segmented Neutrophils % 98 H 40-70 % Lymphocytes % (Manual) 1 L 22-44 % Monocytes % (Manual) 1 L 2-9 % Nucleated Red Blood Cells 0.7 H 0.0-0.19 % Differential Comment MANUAL DIFFERENTIAL White Cell Morphology Comment Platelet Morphology Comment SLIGHTLY DECREASED Red Blood Cell Morphology ANISO 1+ Immature Granulocyte % (Auto) 0.8 0-1 % Neutrophils (%) (Auto) 95.6 H 40.0-77.0 % Lymphocytes (%) (Auto) 1.0 L 21.0-51.0 % Monocytes (%) (Auto) 2.3 L 3.0-13.0 % Eosinophils (%) (Auto) 0.0 0.0-8.0 % Basophils (%) (Auto) 0.3 0.0-5.0 % Neutrophils # (Auto) 22.0 H 1.8-7.7 K/uL Lymphocytes # (Auto) 0.2 L 1.0-4.8 K/uL Monocytes # (Auto) 0.5 0.1-1.0 K/uL Eosinophils # (Auto) 0.00 0.00-0.70 K/uL Basophils # (Auto) 0.08 0.00-0.20 K/uL Absolute Immature Granulocyte (auto 0.18 0-1 K/uL Chemistry Labs: Test 04/14/25 08:38 04/14/25 05:24 04/13/25 08:09 04/13/25 04:04 Range/Units Sodium Level 139 136-145 mmol/L Potassium Level 3.7 3.5-5.1 mmol/L Chloride Level 98 L 101-111 mmol/L Carbon Dioxide Level 28 21-32 mmol/L Blood Urea Nitrogen 96 *H 7-18 mg/dL Creatinine 3.3 H 0.5-1.0 mg/dL Glomerular Filtration Rate Calc 13 >90 mL/min Random Glucose 267 H 70-105 mg/dL Total Calcium 7.4 L 8.5-10.1 mg/dL Magnesium Level 2.00 1.80-2.40 mg/dL Whole Blood Glucose 173 H 70-110 MG/DL Lactic Acid Level 2.8 H 0.8-2.5 mmol/L Phosphorus Level 6.9 H 2.5-4.9 mg/dL Total Bilirubin 1.4 H 0.2-1.0 mg/dL Aspartate Amino Transf (AST/SGOT) 35 10-37 U/L Alanine Aminotransferase (ALT/SGPT) 174 #H 12-78 U/L Alkaline Phosphatase 162 H 50-136 U/L Ammonia 24 11-32 umol/L Total Protein 4.0 L 6.0-8.3 g/dL Albumin 1.7 L 3.5-5.0 g/dL Coagulation Labs: Test 04/13/25 04:04 Range/Units Prothrombin Time 15.4 H 9.6-11.6 SEC Prothromb Time International Ratio 1.51 H 0.85-1.15 Activated Partial Thromboplast Time 39.3 H 26.3-35.5 SEC DIAGNOSTICS / RADIOLOGY RESULTS: [ ] PLAN Plan to extubate today Start gabapentin 100 mg every 8 hours for back pain Dilaudid 0.2 mcg every 4 hours For breakthrough pain Continue dobutamine drip Continue Lasix drip Monitor renal clearance Plan to place the patient on high-flow oxygen after extubation and get chest x- ray NEURO: Minimize central acting medications as possible. Fall Precautions. Well lighted room through the day and minimize interruptions through the night to prevent acute delirium. PULMONARY: On mechanical ventilator support via endotracheal tube at this time CARDIOVASCULAR: Follow hemodynamics. Titrate vasopressor to keep MAP >65 or systolic blood pressure >95mmHg DIPS: [ Levophed ] GI & NUTRITION: Continue nutritional support Aspirations precautions Prokinetic agents and laxatives as needed KIDNEYS & ELECTROLYTES: Strict monitoring of intake and output Daily weights Avoid nephrotoxic agents Monitor electrolytes and replace as needed Goal urine output of 30mL/hr or 0.5mL/kg/hr ENDOCRINE: Maintain blood glucose between 100-180 at all times. Insulin sliding scale for blood glucose management INFECTIOUS DISEASE: Trend temperature. Pittman-culture if febrile. Micro: [Pending results ] Antibiotics: [ As per I and D] HEMATOLOGY & COAGULATION: Monitor H&H. Keep Hgb > 7 Transfuse 1 unit of PRBC for Hgb < 7 Transfuse 1 pack of platelets of platelets < 20, 000 Watch for any signs and symptoms of bleeding SKIN: Pressure ulcer prevention per facility protocol Rehab: PT/OT Prophylaxis: GI: [ Protonix 40 mg IV b.i.d.] DVT: [SCDs to the lower extremities ] Code Status: Full Resuscitation Disposition: [Continue medical management in the ICU ] Total critical care time 35 minutes excluding any procedures I personally scribed for NINOSKA QUINN MD ([email or web address]) on 04/14/25 at 1 2:28. Electronically submitted by Jesus Camargo ([email or web address]). NINOSKA QUINN MD Apr 14, 2025 12:28
--- NOTE | 2025-04-14 15:40 | PN ---
FOLLOWUP PROGRESS NOTE SUBJECTIVE: An 84-year-old female with a history of diabetes mellitus, hypertension, patient with a history of known coronary artery disease. The patient remains intubated in the ICU. The patient is being weaned from the ventilator. She has had acute on chronic renal dysfunction in the hospital. Creatinine has been elevated. She remains on the IV Lasix. The patient is being seen for all of the above. REVIEW OF SYSTEMS: She is intubated in the ICU. PHYSICAL EXAMINATION: VITAL SIGNS: Blood pressure 135/74. Pulse is 90. GENERAL: She is a chronically ill female elderly, lying in bed on the medical floor. HEENT: Head is atraumatic. Pupils equal, round and reactive to light. Oropharynx is without exudate. Nares clear. NECK: There is no JVP. There is no thyromegaly, no mass. CARDIOVASCULAR: Regular. There is no S3 or S4 gallop. LUNGS: Coarse with equal thoracic movement. ABDOMEN: Abdomen is soft, nondistended, nontender. EXTREMITIES: Extremities reveal no clubbing or cyanosis. NEUROLOGICAL: Neurologically, she is much more awake on the ventilator. LABORATORY DATA: Hemoglobin 7.5, hematocrit 22, white cell count is 33,000, BUN 96, creatinine is 3.3. IMPRESSION: Acute on chronic renal failure. Respiratory failure, on the vent. Coronary artery disease. History of the retroperitoneal hematoma. PLAN: The patient is being weaned from the ventilator. Urine output has improved with the diuretics. Creatinine has remained fairly stable. There is no acute need for any form of renal replacement therapy. At this time, I did have a long discussion with the patient's family. Multiple questions were all answered. TID: [id number] RECEIPT: [id number]
[2025-04-14] MEDS: LIDOCAINE 5% TOPICAL PATCH TP ONE (20:57)
--- NOTE | 2025-04-14 22:57 | PN ---
INFECTIOUS DISEASE FOLLOWUP NOTE DATE OF SERVICE: 04/14/2025 SUBJECTIVE: The patient is seen and examined at bedside today. The patient has no fever, afebrile. No rashes or itchiness. She remains intubated and sedated, on ventilatory support. The patient remains on vasopressor and Dobutamine infusion. No family at bedside at this time. PHYSICAL EXAMINATION: VITAL SIGNS: Temperature 98.7. EYES: Nonicteric. Pupils are equal and reactive to light. HENT: Orally intubated, ventilatory support. NECK: Supple. No JVD or thyromegaly. LUNGS: Good air entry. Few crackles. CARDIOVASCULAR: S1 and S2 regular. No murmur .ABDOMEN: Soft. Bowel sound is present. CENTRAL NERVOUS SYSTEM: Awake, alert and oriented x3. No focal deficits. SKIN: No rashes, no itchiness. LYMPHATIC: No peripheral lymphadenopathy. BACK: No deformity, no pressure ulcers. HEMATOLOGIC: No bleeding or petechial lesions seen. MUSCULOSKELETAL: No joint swelling, erythema or tenderness. ASSESSMENT: An 84-year-old female with: * Healthcare associated pneumonia. * Hypoxemic respiratory failure. * Hypertension. * Heart failure. * Anemia. * Obesity. * Diabetes mellitus. PLAN: * Continue ventilator support. * Continue meropenem. * Continue linezolid. * Continue critical care support. * Continue pain management. * Monitor electrolytes. * The patient will be followed up closely. TID: [id number] RECEIPT: [id number] [facility]
[2025-04-15] VITALS (106 sets, daily range): BP systolic 85–158; BP diastolic 34–111; PULSE 85–97; RESP 15–32; TEMP 95.5–98.2; O2SAT 92–100
[2025-04-15 05:26] LABS: NUCLEATED RED BLOOD CELLS 0.3 % (0.0-0.19); PLATELET COUNT (AUTO) 123.0 K/uL (130-400); RED BLOOD CELL COUNT(AUTO) 2.28 MIL/uL (4.00-5.50); RED CELL DISTRIBUTION WIDTH 19.0 % (11.0-15.5)
[2025-04-15 05:27] LABS: WHITE BLOOD COUNT (AUTO) 31.5 K/uL (4.8-10.8)
[2025-04-15 05:40] LABS: ASPARTATE AMINOTRANSFERASE 34.0 U/L (10-37); CREATININE 3.3 mg/dL (0.5-1.0); GLOMERULAR FILTR. RATE CALC 13.0 mL/min (>90); GLUCOSE,RANDOM 153.0 mg/dL (70-105); SODIUM SERUM 140.0 mmol/L (136-145); TOTAL PROTEIN, SERUM 4.0 g/dL (6.0-8.3)
[2025-04-15 05:43] LABS: UREA NITROGEN, BLOOD 106.0 mg/dL (7-18)
[2025-04-15 09:08] LABS: ABG BASE EXCESS 2.8 mmol/L (-2.0-3.0); ABG HCO3 26.8 mmol/L (21.0-28.0); ABG OXYGEN SATURATION 95.7 % (94.0-98.0); ABG PCO2 39 mmHg (32-45); ABG PH 7.460 (7.350-7.450); CARBON MONOXIDE 1.1 % (0.5-1.5); PO2, ARTERIAL BG 82.7 mmHg (83.0-108.0); TEMPERATURE, CELSIUS BG 37.0 CELSIUS (35.5-37.0); VENT MODE, BG BIPAP 10-5 (ROOM AIR)
[2025-04-15] MEDS: LIDOCAINE 5% TOPICAL PATCH TP SCH (09:32)
--- NOTE | 2025-04-15 11:11 | PN ---
[facility] PROGRESS NOTE Date Patient Seen: Apr 15, 2025 Time of Visit: 11:05 Supervising Physician: Dr Angus Herring Primary Care Physician: SAMIA MENDOZA MD Outpatient Specialists: [ ] Inpatient Consults: BIS PROBLEM LIST: Large right retroperitoneal hematoma displacing the right kidney, present on admission Acute hypoxic respiratory failure present on admission currently on mechanical ventilatory support via endotracheal tube Severe sepsis with shock Severe metabolic acidosis Hospital-acquired pneumonia Acute complicated cystitis Severe anemia, requiring transfusion Acute on chronic kidney disease Atrial fibrillation on chronic anticoagulation therapy Dilated cardiomyopathy ejection fraction 35-40% with moderate pulmonary hypotension Remote CVA Hx of Right lower extremity DVT History of right TKA Suspected AICD malfunction Status post AICD INTERVAL HISTORY: Patient was seen and examined, all labs and imaging have been reviewed Patient extubated, currently on BiPAP, satting 82% on ABG 94 pulse ox Awake alert following commands Continues on the Dobutrex in the Lasix, with 1700 out of 24, GFR is 13 Her hemoglobin is 7.4, platelets 123 She has an echo with an EF of 35% and a RVSP of 30 Plan: We are pending a speech eval, for diet Dietary recs Follow nephrology recs, I&Os Trending hemoglobin, Supplemental O2 Continue follow cultures, she is on Merrem, doxy and Zyvox Total critical care time spent 46 minutes, this excludes any procedures performed or any time spent in educational or teaching. REVIEW OF SYSTEMS: On mechanical ventilator support, non verbal. But she is able to nod yes and no and she is awake and following commands. PHYSICAL EXAM: GENERAL: 84-year-old female who is intubated. ET tube in place. Awake and alert, following commands. HEENT: ET tube, EOMI, Sclera non icteric, moist mucosa NECK: Supple, no JVD, trachea midline LUNGS: Decreased breath sounds, no wheezing. HEART: Irregular rate. Normal S1 and S2, without murmurs ABD: Abdomen soft, nontender. Bowel sounds present large right retroperitoneal hematoma EXT: 3+ edema to the upper extremities bilaterally with some weeping, 4+ edema to the lower extremities bilaterally. NEURO: Not sedated, following commands. Vital Signs (last 8hr) Date Time Temp Pulse Resp B/P (MAP) Pulse Ox O2 Delivery O2 Flow Rate FiO2 04/15/25 09:09 91 24 N/Cannula Low lpm 5.0 04/15/25 06:30 91 18 50 04/15/25 06:29 90 20 04/15/25 06:14 122/57 04/15/25 05:45 123/59 04/15/25 05:45 91 19 100 04/15/25 05:37 91 19 122/57 (78) 99 04/15/25 05:30 91 21 100 04/15/25 05:15 91 20 100 04/15/25 05:00 91 16 100 04/15/25 04:45 91 23 100 04/15/25 04:37 91 19 123/59 (80) 100 04/15/25 04:30 91 19 100 04/15/25 04:15 91 18 100 04/15/25 04:07 98.2 04/15/25 04:00 91 17 100 04/15/25 04:00 98 Bi-PAP+ 60 04/15/25 03:45 91 19 127/71 (89) 100 04/15/25 03:37 91 20 114/62 (79) 100 126/87 (100) 04/15/25 03:30 91 15 132/80 (97) 100 04/15/25 03:26 85 31 50 04/15/25 03:15 91 26 110/56 (74) 94 114/87 (96) LABS: Hematology Labs: Test 04/15/25 04:45 04/14/25 08:38 Range/Units White Blood Count 31.5 *H 4.8-10.8 K/uL Red Blood Count 2.28 L 4.00-5.50 MIL/uL Hemoglobin 7.4 L 12.0-16.0 g/dL Hematocrit 22.6 L 36-48 % Mean Corpuscular Volume 99.1 H 79-99 fL Mean Corpuscular Hemoglobin 32.5 27.0-33.0 pg Mean Corpuscular Hemoglobin Concent 32.7 32.0-36.0 g/dL Red Cell Distribution Width 19.0 H 11.0-15.5 % Platelet Count 123 L 130-400 K/uL Mean Platelet Volume 11.6 H 7.5-10.5 fL Nucleated Red Blood Cells 0.3 H 0.0-0.19 % Segmented Neutrophils % 98 H 40-70 % Lymphocytes % (Manual) 1 L 22-44 % Monocytes % (Manual) 1 L 2-9 % Differential Comment MANUAL DIFFERENTIAL White Cell Morphology Comment Platelet Morphology Comment SLIGHTLY DECREASED Red Blood Cell Morphology ANISO 1+ Chemistry Labs: Test 04/15/25 04:45 04/15/25 00:06 04/14/25 08:38 Range/Units Sodium Level 140 136-145 mmol/L Potassium Level 3.6 3.5-5.1 mmol/L Chloride Level 99 L 101-111 mmol/L Carbon Dioxide Level 28 21-32 mmol/L Blood Urea Nitrogen 106 *H 7-18 mg/dL Creatinine 3.3 H 0.5-1.0 mg/dL Glomerular Filtration Rate Calc 13 >90 mL/min Random Glucose 153 H 70-105 mg/dL Total Calcium 7.7 L 8.5-10.1 mg/dL Total Bilirubin 1.6 H 0.2-1.0 mg/dL Aspartate Amino Transf (AST/SGOT) 34 10-37 U/L Alanine Aminotransferase (ALT/SGPT) 106 H 12-78 U/L Alkaline Phosphatase 165 H 50-136 U/L Total Protein 4.0 L 6.0-8.3 g/dL Albumin 1.6 L 3.5-5.0 g/dL Whole Blood Glucose 150 H 70-110 MG/DL Magnesium Level 2.00 1.80-2.40 mg/dL DIAGNOSTICS / RADIOLOGY RESULTS: [ ] PLAN NEURO: Minimize central acting medications as possible. Fall Precautions. Well lighted room through the day and minimize interruptions through the night to prevent acute delirium. PULMONARY: On mechanical ventilator support via endotracheal tube at this time CARDIOVASCULAR: Follow hemodynamics. Titrate vasopressor to keep MAP >65 or systolic blood pressure >95mmHg DIPS: [ Levophed ] GI & NUTRITION: Continue nutritional support Aspirations precautions Prokinetic agents and laxatives as needed KIDNEYS & ELECTROLYTES: Strict monitoring of intake and output Daily weights Avoid nephrotoxic agents Monitor electrolytes and replace as needed Goal urine output of 30mL/hr or 0.5mL/kg/hr ENDOCRINE: Maintain blood glucose between 100-180 at all times. Insulin sliding scale for blood glucose management INFECTIOUS DISEASE: Trend temperature. Pittman-culture if febrile. Micro: [Pending results ] Antibiotics: [ As per I and D] HEMATOLOGY & COAGULATION: Monitor H&H. Keep Hgb > 7 Transfuse 1 unit of PRBC for Hgb < 7 Transfuse 1 pack of platelets of platelets < 20, 000 Watch for any signs and symptoms of bleeding SKIN: Pressure ulcer prevention per facility protocol Rehab: PT/OT Prophylaxis: GI: [ Protonix 40 mg IV b.i.d.] DVT: [SCDs to the lower extremities ] Code Status: Full Resuscitation Disposition: [Continue medical management in the ICU ] BOYD GUERRA PAC Apr 15, 2025 11:11
--- NOTE | 2025-04-15 14:53 | PN ---
NEPHROLOGY PROGRESS NOTE Date/Time Patient Seen: Apr 15, 2025 Reason for Consultation: 14:50 SUBJECTIVE: This is an 84-year-old female who was sent to the Emergency Room from the [facility] and the patient has shortness of breath and chest pain. CT scan showed Large right retroperitoneal hematoma extending along the iliopsoas and into the right iliacus, displacing the right kidney. Continues to require vasopressors to maintain blood pressure She has been in the hospital for several days and was noted with worsening renal failure She was noted to have elevated BUN and creatinine, She has had acute on chronic renal dysfunction while in the hospital Creatinine has been elevated She remains on Lasix drip. She has been extubated The patient has been seen for all of the above Renal function remains elevated Electrolytes are stable. She was seen in the ICU Family at the bedside Condition is critical and guarded REVIEW OF SYSTEMS: Difficult to obtain given status of the patient PHYSICAL EXAM: GENERAL: Pale, acutely ill female, lethargic, no acute distress. Well-nourished. EYES: EOMI. Anicteric. HENT: Moist mucous membranes. No scleral icterus. No cervical lymphadenopathy. LUNGS: Clear to auscultation bilaterally. No accessory muscle use. CARDIOVASCULAR: Regular rate and rhythm. No murmur. No JVD. ABDOMEN: Soft, non-tender and non-distended. No palpable masses. EXTREMITIES: No edema. Non-tender. SKIN: No rashes or lesions. Warm. NEUROLOGIC: No focal neurological deficits. CN II-XII grossly intact, but not individually tested. PSYCHIATRIC: Cooperative. Appropriate mood and affect. LABORATORY: [ ] Hematology Labs: Test 04/15/25 04:45 04/14/25 08:38 Range/Units White Blood Count 31.5 *H 4.8-10.8 K/uL Red Blood Count 2.28 L 4.00-5.50 MIL/uL Hemoglobin 7.4 L 12.0-16.0 g/dL Hematocrit 22.6 L 36-48 % Mean Corpuscular Volume 99.1 H 79-99 fL Mean Corpuscular Hemoglobin 32.5 27.0-33.0 pg Mean Corpuscular Hemoglobin Concent 32.7 32.0-36.0 g/dL Red Cell Distribution Width 19.0 H 11.0-15.5 % Platelet Count 123 L 130-400 K/uL Mean Platelet Volume 11.6 H 7.5-10.5 fL Nucleated Red Blood Cells 0.3 H 0.0-0.19 % Segmented Neutrophils % 98 H 40-70 % Lymphocytes % (Manual) 1 L 22-44 % Monocytes % (Manual) 1 L 2-9 % Differential Comment MANUAL DIFFERENTIAL White Cell Morphology Comment Platelet Morphology Comment SLIGHTLY DECREASED Red Blood Cell Morphology ANISO 1+ Chemistry Labs: Test 04/15/25 11:53 04/15/25 04:45 04/14/25 08:38 Range/Units Whole Blood Glucose 135 H 70-110 MG/DL Sodium Level 140 136-145 mmol/L Potassium Level 3.6 3.5-5.1 mmol/L Chloride Level 99 L 101-111 mmol/L Carbon Dioxide Level 28 21-32 mmol/L Blood Urea Nitrogen 106 *H 7-18 mg/dL Creatinine 3.3 H 0.5-1.0 mg/dL Glomerular Filtration Rate Calc 13 >90 mL/min Random Glucose 153 H 70-105 mg/dL Total Calcium 7.7 L 8.5-10.1 mg/dL Total Bilirubin 1.6 H 0.2-1.0 mg/dL Aspartate Amino Transf (AST/SGOT) 34 10-37 U/L Alanine Aminotransferase (ALT/SGPT) 106 H 12-78 U/L Alkaline Phosphatase 165 H 50-136 U/L Total Protein 4.0 L 6.0-8.3 g/dL Albumin 1.6 L 3.5-5.0 g/dL Magnesium Level 2.00 1.80-2.40 mg/dL DIAGNOSTICS / RADIOLOGY: [address] [address] IMAGING REPORT Signed PATIENT: LORE OCONNELL MR#: [id number] : 1940 SEX: F AGE: 84 LOCATION: [facility] ORDER 2300 STATUS: ADM IN REPORT#: [id number] SERVICE 0600 REASON: chf ORDERING PHYSICIAN: SHADE YOUNGBLOOD MD PROCEDURE: CXR1VW - CHEST 1VW EXAM: CR Chest, 1 View. CLINICAL HISTORY: CHF COMPARISON: 04/12/2025 FINDINGS: The ET tube tip is 4.4 cm away from the juanito. The nasogastric tube is seen below the left hemidiaphragm. LUNGS: Left basilar atelectasis. Otherwise, the lungs are essentially clear. PLEURAL SPACES: No pneumothorax. Stable small left pleural effusion. MEDIASTINUM: Mild cardiomegaly with interval reduction in the central pulmonary venous congestion in both lungs. The pacemaker leads overlie the right atrium and right ventricle. BONES: No acute osseous abnormality. IMPRESSION: 1. Mild cardiomegaly with interval reduction in central pulmonary venous congestion. 2. Stable small left pleural effusion. 3. ET tube tip 4.4 cm from juanito. 4. Nasogastric tube below the left hemidiaphragm. /Lane DICTATED BY: SHAKIR GARCIA Jr., MD DATE: 04/13/251035 ELECTRONICALLY SIGNED BY: SHAKIR GARCIA Jr., MD DATE: 04/13/251035 PATIENT: LORE OCONNELL MR#: [id number] : 1940 SEX: F AGE: 84 LOCATION: [facility] ORDER 2300 STATUS: ADM IN REPORT#: [id number] SERVICE 0600 REASON: PNA ORDERING PHYSICIAN: ZENOBIA PEREZ MD PROCEDURE: CXR1VW - CHEST 1VW CHEST 1VW REASON: PNA COMPARISON: Prior chest radiograph from 04/09/2025 is available. FINDINGS: Single view of the chest was obtained. The study is limited due to poor inspiratory radiograph patient is rotated.. The lung [place] are clear. There is no evidence of any vascular congestion. There is mild cardiomegaly with left ventricular contour. There is a support lines including endotracheal tube and nasogastric tube are in satisfactory position. There is a left-sided pacemaker with lead in right atrium and right ventricle.. Mediastinum and bony thorax appear unremarkable. The bony thorax demonstrate mild osteopenia. IMPRESSION: 1. Mild cardiomegaly 2. Support lines satisfactory position 3. Limited study with no evidence of airspace consolidation or pulmonary venous congestion. DICTATED BY: JADEN CHAVIRA MD DATE: 04/10/251251 ELECTRONICALLY SIGNED BY: JADEN CHAVIRA MD DATE: 04/10/251255 PATIENT: LORE OCONNELL MR#: [id number] : 1940 SEX: F AGE: 84 LOCATION: [facility] ORDER 6 STATUS: ADM IN REPORT#: [id number] SERVICE REASON: septic/SOB ORDERING PHYSICIAN: ZENOBIA PEREZ MD PROCEDURE: CAP WO - CT CHEST/ABD/PELV W/O CONTRAST ADDENDUM REPORT ADDENDUM: Results were shared by telephone at 09:07 PM on 04-08-2025 and acknowledged by the Patient's Nurse Ms. Sue Quinones /[place] EXAM: CT Chest, Abdomen and Pelvis without Intravenous Contrast CLINICAL HISTORY: evaluation of sepsis. TECHNIQUE: Axial computed tomography images of the chest, abdomen and pelvis without intravenous contrast. Dose reduction technique was used including one or more of the following: automated exposure control, adjustment of mA and kV according to patient size, and/or iterative reconstruction. Total exam DLP is 1117 mGy x cm. CONTRAST: None. COMPARISON: Prior chest radiograph dated 04/08/2025, acquired at 04:52 hours. FINDINGS: CHEST: LUNGS: Endotracheal tube with its tip positioned 3.5 cm short of juanito. Moderate sized bilateral pleural effusions with atelectasis/consolidation of the lung bases. Multifocal areas of ground-glass opacities, mosaic attenuation are present in the remainder of the lung parenchyma bilaterally. PLEURAL SPACES: Moderate sized bilateral pleural effusions. No pneumothorax. HEART AND MEDIASTINUM: Left chest wall pacemaker with electrodes terminating in the lumen of the coronary sinus and the right heart chambers. Atheromatous calcification of the aortic arch and the coronary arteries. Right sided PICC line visualized with its tip terminating in the right brachiocephalic vein. Feeding tube visualized with its tip terminating at the gastroesophageal junction. Mild cardiomegaly. Coronary arterial calcifications present. Mitral and aortic valve annulus calcifications. No significant pericardial effusion. LYMPH NODES: No lymphadenopathy. ABDOMEN AND PELVIS: LIVER: Ill-defined hypodense area measuring 2 x 2.1 cm in the segment VII of the subcapsular region of the right hepatic lobe, without areas of calcification or fat in it. GALLBLADDER AND BILE DUCTS: Gallbladder is surgically absent. No biliary ductal dilatation. PANCREAS: Pancreas is atrophic. No pancreatic ductal dilatation or calculi. SPLEEN: Spleen is atrophic and shrunken with areas of capsular calcifications. ADRENAL GLANDS: Unremarkable. KIDNEYS, URETERS, AND BLADDER: Bilateral intrarenal segmental arterial calcifications. Multiple right sided renal calculi, measuring up to 4 mm. A Mcdowell's catheter is appropriately positioned in the bladder lumen. No hydronephrosis. No ureteral or bladder calculi. STOMACH AND BOWEL: Evidence of prior surgical intervention involving the stomach, incompletely evaluated due to lack of optimal luminal distension. Gastric bypass surgery status with appropriate position of the gastrojejunal anastomosis. No obstruction. No wall thickening. No CT evidence of colitis or acute diverticulitis. APPENDIX: No CT evidence for appendicitis. PERITONEUM: No free fluid. No free air. LYMPH NODES: No lymphadenopathy. REPRODUCTIVE: Uterus is not distinctly visualized. VASCULATURE: The abdominal aorta demonstrates atheromatous calcification without aneurysm or dissection. BONES AND SOFT TISSUES: Diffuse body wall edema. Right retroperitoneal space hyperdense collection, measuring approximately 14 x 7 x 25 cm, visualized on the anterior aspect of the iliopsoas. It is extending toward the right groin. The right iliacus muscle also appears bulky with similar hyperdense contents, likely representing hematoma. The collection is visualized in the retroperitoneal compartment and is displacing the right kidney anteriorly. Severe osteopenia. Chronic appearing compression deformities of multiple thoracolumbar vertebrae, including T6, T8, T9, T11, T1. The maximum vertebral height loss is visualized at T11 level with increased thoracolumbar junction kyphosis. Grade I anterolisthesis of L4 over L5 without spondylolysis. Dextroscoliosis of the thoracolumbar spine curvature. IMPRESSION: 1. Findings consistent with aspiration pneumonitis. Compared with the prior chest radiograph dated 04/08/2025, acquired at 04:52 hours, the pulmonary parenchymal findings are stable. Right PICC line and the feeding tube need to be repositioned. 2. Large right retroperitoneal hematoma extending along the iliopsoas and into the right iliacus, displacing the right kidney. 3. Several stable chronic and incidental findings are noted, as detailed in the body of the report. /Lane DICTATED BY: HENRIK FOX MD DATE: 04/08/252128 ELECTRONICALLY SIGNED BY: DATE: EXAM: CT Chest, Abdomen and Pelvis without Intravenous Contrast CLINICAL HISTORY: evaluation of sepsis. TECHNIQUE: Axial computed tomography images of the chest, abdomen and pelvis without intravenous contrast. Dose reduction technique was used including one or more of the following: automated exposure control, adjustment of mA and kV according to patient size, and/or iterative reconstruction. Total exam DLP is 1117 mGy x cm. CONTRAST: None. COMPARISON: Prior chest radiograph dated 04/08/2025, acquired at 04:52 hours. FINDINGS: CHEST: LUNGS: Endotracheal tube with its tip positioned 3.5 cm short of juanito. Moderate sized bilateral pleural effusions with atelectasis/consolidation of the lung bases. Multifocal areas of ground-glass opacities, mosaic attenuation are present in the remainder of the lung parenchyma bilaterally. PLEURAL SPACES: Moderate sized bilateral pleural effusions. No pneumothorax. HEART AND MEDIASTINUM: Left chest wall pacemaker with electrodes terminating in the lumen of the coronary sinus and the right heart chambers. Atheromatous calcification of the aortic arch and the coronary arteries. Right sided PICC line visualized with its tip terminating in the right brachiocephalic vein. Feeding tube visualized with its tip terminating at the gastroesophageal junction. Mild cardiomegaly. Coronary arterial calcifications present. Mitral and aortic valve annulus calcifications. No significant pericardial effusion. LYMPH NODES: No lymphadenopathy. ABDOMEN AND PELVIS: LIVER: Ill-defined hypodense area measuring 2 x 2.1 cm in the segment VII of the subcapsular region of the right hepatic lobe, without areas of calcification or fat in it. GALLBLADDER AND BILE DUCTS: Gallbladder is surgically absent. No biliary ductal dilatation. PANCREAS: Pancreas is atrophic. No pancreatic ductal dilatation or calculi. SPLEEN: Spleen is atrophic and shrunken with areas of capsular calcifications. ADRENAL GLANDS: Unremarkable. KIDNEYS, URETERS, AND BLADDER: Bilateral intrarenal segmental arterial calcifications. Multiple right sided renal calculi, measuring up to 4 mm. A Mcdowell's catheter is appropriately positioned in the bladder lumen. No hydronephrosis. No ureteral or bladder calculi. STOMACH AND BOWEL: Evidence of prior surgical intervention involving the stomach, incompletely evaluated due to lack of optimal luminal distension. Gastric bypass surgery status with appropriate position of the gastrojejunal anastomosis. No obstruction. No wall thickening. No CT evidence of colitis or acute diverticulitis. APPENDIX: No CT evidence for appendicitis. PERITONEUM: No free fluid. No free air. LYMPH NODES: No lymphadenopathy. REPRODUCTIVE: Uterus is not distinctly visualized. VASCULATURE: The abdominal aorta demonstrates atheromatous calcification without aneurysm or dissection. BONES AND SOFT TISSUES: Diffuse body wall edema. Right retroperitoneal space hyperdense collection, measuring approximately 14 x 7 x 25 cm, visualized on the anterior aspect of the iliopsoas. It is extending toward the right groin. The right iliacus muscle also appears bulky with similar hyperdense contents, likely representing hematoma. The collection is visualized in the retroperitoneal compartment and is displacing the right kidney anteriorly. Severe osteopenia. Chronic appearing compression deformities of multiple thoracolumbar vertebrae, including T6, T8, T9, T11, T1. The maximum vertebral height loss is visualized at T11 level with increased thoracolumbar junction kyphosis. Grade I anterolisthesis of L4 over L5 without spondylolysis. Dextroscoliosis of the thoracolumbar spine curvature. IMPRESSION: 1. Findings consistent with aspiration pneumonitis. Compared with the prior chest radiograph dated 04/08/2025, acquired at 04:52 hours, the pulmonary parenchymal findings are stable. Right PICC line and the feeding tube need to be repositioned. 2. Large right retroperitoneal hematoma extending along the iliopsoas and into the right iliacus, displacing the right kidney. 3. Several stable chronic and incidental findings are noted, as detailed in the body of the report. /Lane DICTATED BY: HENRIK FOX MD DATE: 04/08/252056 ELECTRONICALLY SIGNED BY: HENRIK FOX MD DATE: 04/08/252056 PATIENT: LORE OCONNELL MR#: [id number] : 1940 SEX: F AGE: 84 LOCATION: [facility] ORDER 1 STATUS: ADM IN REPORT#: [id number] SERVICE 0921 REASON: HF ORDERING PHYSICIAN: BOYD GUERRA PAC PROCEDURE: ECHO CMP - ECHO 2-D COMPLETE APPROVED REPORT EXAM: Two-dimensional and M-mode echocardiogram with Doppler and color Doppler. INDICATION ICD: Elevated liver enzymes 2D Dimensions RVDd 5.0 cm LVEF(%) 54.9 (>50%) LA ESV INDEX (BP) 85.96 mL/m2 IVSd 0.8 (0.7-1.1cm) FS(%) 29 % LVDd 5.1 (3.8-5.6cm) LA (2D) 6.2 (1.6-4.0cm) PWd 1.2 (0.7-1.1cm) Ao Root(2D) 3.0 (2.0-3.7cm) IVSs 1.0 cm LVOT diam 2.2 (1.8-2.4cm) LVDs 3.6 (2.5-4.0cm) PWs 1.5 cm M-Mode Dimensions EPSS 0.9 cm LA (MM) 7.0 (1.6-4.0cm) Ao Root(MM) 3.4 (2.0-3.7cm) Aortic Valve AoV Vmax 1.7 m/s Ao Peak GR 11.9 mmHg LVOT Vmax 0.8 m/s AoV VTI 0.3 m Ao Mean GR 6.7 mmHg LVOT VTI 0.12 m VERONICA (VMAX) 1.64 cm2 Al P1/2T 575 ms VERONICA (VTI) 1.5 cm2 Mitral Valve MV E Vmax 81.2 cm/s DECEL Time 181 ms MV A Vmax 73.1 cm/s P 1/2 T 42 ms E/A ratio 1.1 MVA (PHT) 5.2 cm2 TDI E/E' Medial 14.3 E/E' Lateral 13.4 Medial E' Peak V 5.67 cm/s Lateral E' Peak V 6.04 cm/s Pulmonary Valve PV Vmax 1.2 m/s PI End Ximena. Jonel 142.2 cm/s PV Mean GR 2.7 mmHg PV Peak GR 5.6 mmHg Tricuspid Valve TR Vmax 2.6 m/s RAP (EST) 3 mmHg RVSP 30.0 mmHg TR Peak GR 27.0 mmHg Left Ventricle The left ventricle is normal size. There is global hypokinesis of the left ventricle. There is normal left ventricular wall thickness. LVEF is 30-35%. E/A flow is fused. Right Ventricle The right ventricle is severely dilated. Right ventricular systolic function is mildly reduced. Device lead is present in the right ventricle. Atria The left atrium is severely dilated. LASVI 86mL/m The interatrial septum is intact with no evidence for an atrial septal defect by color. Evidence of increased left atrial pressure with the atrial septum bowed to the right. The right atrium is severely dilated. Aortic Valve Aortic valve is trileaflet, mildly sclerotic and thickened but opens well. Mild aortic regurgitation is present. There is no aortic valvular stenosis. Mitral Valve The mitral valve is thickened. There is mild mitral valve regurgitation noted. There is no mitral valve stenosis. Tricuspid Valve The tricuspid valve is normal in structure. There is no tricuspid valve regurgitation noted. RVSP 30 mmHg Pulmonic Valve The pulmonary valve is normal in structure. There is trace of pulmonic valvular regurgitation. Great Vessels The aortic root is normal in size. The IVC is normal in size and collapses >50% with inspiration. Pericardium There is small pericardial effusion seen posteriorly. Other Information Quality : Adequate Rhythm : NSR Conclusion There is global hypokinesis of the left ventricle. LVEF is 30-35%. The right ventricle is severely dilated and hypokinetic. Device lead is present in the right ventricle. Left atrium is severely dilated. LASVI 86mL/m. No atrial septal defect by color. Evidence of increased left atrial pressure with the atrial septum bowed to the right. Mild aortic regurgitation. Thckened mitral valve leaflets. Mild mitral valve regurgitation. Small pericardial effusion seen posteriorly. DICTATED BY: KASH DUONG DO DATE: 04/07/25 [id number] ELECTRONICALLY SIGNED BY: KASH DUONG DO DATE: 04/07/25 [id number] ASSESSMENT: Acute on chronic kidney disease Anemia Retroperitoneal hemorrhage newly diagnosed via CT scan of the abdomen Acute hypoxic respiratory failure present on admission currently on mechanical ventilatory support via endotracheal tube Severe sepsis with shock Severe metabolic acidosis Hospital-acquired pneumonia Acute complicated cystitis Atrial fibrillation on chronic anticoagulation therapy Dilated cardiomyopathy ejection fraction 35-40% with moderate pulmonary hypotension Remote CVA Hx of Right lower extremity DVT History of right TKA Suspected AICD malfunction Status post AICD PLAN: Labs, diagnostic, radiologic exams reviewed and interpreted by myself and supervising physician. We have reviewed external records in detail Order repeat UA Require close monitoring of renal function and electrolytes Order CBC, CMP, and electrolytes in am BiPAP, for respiratory distress IV pressors, as needed Continue with antibiotics Monitor blood pressure adjust medication doses as needed Avoid hypotensive episodes May use Dilaudid 0.5 mg IV every 6 hours as needed for severe pain Monitor blood sugars Strict intake, output, and daily weight should be monitored Please renally adjust medications Avoid nephrotoxic and nonsteroidal drugs Avoid contrast if possible Will continue to monitor renal function, anemia, electrolytes Treatment plan discussed with patient Questions were answered We have discussed with the other team physicians in detail about the care plan We will continue to monitor the patient closely Total critical care time spent with patient, nursing staff, critical care team over 35 minutes ATTESTATION BY PHYSICIAN I have seen and examined the patient. I reviewed the documentation, medical decision making, and treatment plan as noted by the mid-level provider above. I agree with the findings and plan of care. BREANA YUSUF MD, [facility] Apr 15, 2025 14:53
--- NOTE | 2025-04-15 15:59 | NUR ---
[facility] Consult: Patient assessed by wound healing team. See wound assessment. Assessment and recommendations provided to primary nurse. Education provided.
--- NOTE | 2025-04-15 17:42 | NUR ---
BEDSIDE SWALLOW EVALUATION: s/s of aspiration with thin liquids and moderately thick liquids. NPO recommendation. RECOMMENDATIONS: NPO pending MBSS. COMPENSATORY STRATEGIES: 1. ALERT FOR FEEDING 2. ALTERNATION OF BITES/SIPS 3. SMALL BITES/SIPS 4. MULTIPLE SWALLOWS RECOMMENDATIONS: Speech therapy 1-3x per week. LTG 1: Tolerate PO diet of least restrictive textures and liquid consistencies. LT. Patient/family education STG1: Complete oral motor exercises with min cues and 80% accuracy. STG2: Complete swallowing maneuvers and strategies with min cues and 80% accuracy. STG3: Tolerate PO trials of pureed textures and milldy thick liquids without s/s of aspiration in 100% of opportunities. STG4: [facility] [facility] reviewed results and recommendations with patient, daughter, and nurse Mario. FACILITY MECHANIC educated patient and family on risks and consequences of aspiration. All questions answered. Addendum: 04/15/[address] [facility] Amended: Links added.
[2025-04-15] MEDS: BACITRACIN 28.4 GM OINT TP SCH (21:00)
--- NOTE | 2025-04-15 21:19 | PN ---
PROGRESS NOTE PROGRESS NOTE DATE OF PROGRESS NOTE: 04/15/25 SUBJECTIVE: No new complaints VITAL SIGNS Vital Signs Date Time Temp Pulse Resp B/P (MAP) Pulse Ox O2 Delivery O2 Flow Rate FiO2 04/15/25 20:28 95.5 04/15/25 20:00 98 Bi-PAP+ 50 04/15/25 19:53 91 25 101/55 (70) 04/15/25 09:09 5.0 PHYSICAL EXAM: PHYSICAL EXAM: GENERAL: 84-year-old female who is intubated. HEENT: ET tube, EOMI, Sclera non icteric, moist mucosa NECK: Supple, no JVD, trachea midline LUNGS: Clear breath sounds bilaterally. No wheezes HEART: Irregular rate. Normal S1 and S2, without murmurs ABD: Abdomen soft, nontender. Bowel sounds present EXT: No clubbing cyanosis or edema NEURO: Patient is sedated LABORATORY: Laboratory Result(s) Test 04/15/25 00:06 04/15/25 04:45 04/15/25 09:07 04/15/25 11:53 Whole Blood Glucose 150 MG/DL (70-110) 135 MG/DL (70-110) White Blood Count 31.5 K/uL (4.8-10.8) Red Blood Count 2.28 MIL/uL (4.00-5.50) Hemoglobin 7.4 g/dL (12.0-16.0) Hematocrit 22.6 % (36-48) Mean Corpuscular Volume 99.1 fL (79-99) Mean Corpuscular Hemoglobin 32.5 pg (27.0-33.0) Mean Corpuscular Hemoglobin Concent 32.7 g/dL (32.0-36.0) Red Cell Distribution Width 19.0 % (11.0-15.5) Platelet Count 123 K/uL (130-400) Mean Platelet Volume 11.6 fL (7.5-10.5) Nucleated Red Blood Cells 0.3 % (0.0-0.19) Sodium Level 140 mmol/L (136-145) Potassium Level 3.6 mmol/L (3.5-5.1) Chloride Level 99 mmol/L (101-111) Carbon Dioxide Level 28 mmol/L (21-32) Blood Urea Nitrogen 106 mg/dL (7-18) Creatinine 3.3 mg/dL (0.5-1.0) Glomerular Filtration Rate Calc 13 mL/min (>90) Random Glucose 153 mg/dL (70-105) Total Calcium 7.7 mg/dL (8.5-10.1) Total Bilirubin 1.6 mg/dL (0.2-1.0) Aspartate Amino Transf (AST/SGOT) 34 U/L (10-37) Alanine Aminotransferase (ALT/SGPT) 106 U/L (12-78) Alkaline Phosphatase 165 U/L (50-136) Total Protein 4.0 g/dL (6.0-8.3) Albumin 1.6 g/dL (3.5-5.0) Blood Gas Specimen Type Arterial Arterial Blood pH 7.460 (7.350-7.450) Arterial Blood Partial Pressure CO2 39 mmHg (32-45) Arterial Blood Partial Pressure O2 82.7 mmHg (83.0-108.0) Arterial Blood HCO3 26.8 mmol/L (21.0-28.0) Arterial Blood Oxygen Saturation 95.7 % (94.0-98.0) Arterial Blood Base Excess 2.8 mmol/L (-2.0-3.0) Hemoglobin (Blood Gas) 8.2 g/dL (12.0-16.0) Sodium (Blood Gas) 137 MMOL/L (136-145) Bedside Potassium (Blood Gas) 3.5 MMOL/L (3.4-4.5) Bedside Chloride (Blood Gas) 100 MMOL/L (98-107) Bedside Glucose (Blood Gas) 168 MG/DL (65-95) Bedside Ionized Calcium (Blood Gas) 1.04 MMOL/L (1.15-1.33) Bedside Lactic Acid (Blood Gas) 2.68 MMOL/L (0.36-0.75) Blood Gas Temperature 37.0 CELSIUS (35.5-37.0) Blood Gas Respiration Rate 12.0 min. Blood Gas Vent Mode BIPAP 10-5 (ROOM AIR) FiO2 50.0 % Blood Gas Specimen Comment JARRED CARRERO Test 04/15/25 14:27 04/15/25 17:24 Urine Random Sodium 79 mmol/l (40-220) Urine Random Potassium 31 mmol/L (25-125) Urine Random Chloride 101 mmol/L (110-250) Whole Blood Glucose 171 MG/DL (70-110) INPATIENT MEDS: Current Medications Medications Dose Ordered Sig/Asif Start Time Stop Time Status Last Admin Dextrose 50 ml AD PRN 04/06/25 16:30 05/06/25 16:29 04/07/25 16:56 Glucagon 1 mg AD PRN 04/06/25 16:30 05/06/25 16:29 Pantoprazole Sodium 40 mg BID 04/07/25 09:00 05/07/25 08:59 04/15/25 20:11 Norepinephrine Bitartrate 32 mg/ Sodium Chloride 250 ml @ 0 mls/hr PROTOCOL 04/07/25 08:30 05/07/25 08:29 04/08/25 01:59 Ipratropium [place] 0.5 mg [id number] 04/07/25 12:00 05/07/25 11:59 04/15/25 19:07 Magnesium Sulfate 50 ml @ 0 mls/hr PROTOCOL 04/09/25 05:00 05/09/25 04:59 04/12/25 08:56 Calcium Gluconate 1 gm PROTOCOL 04/09/25 05:00 05/09/25 04:59 04/09/25 05:17 Linezolid 300 ml @ 150 mls/hr Q12H 04/09/25 16:30 04/19/25 16:29 04/15/25 15:03 Furosemide 100 mg/ Sodium Chloride 100 ml @ 15 mls/hr PROTOCOL 04/10/25 11:30 05/10/25 11:29 04/15/25 19:58 Dobutamine HCl/ Dextrose 250 ml @ 42.483 mls/ hr PROTOCOL 04/10/25 11:30 05/10/25 11:29 04/15/25 15:05 Doxycycline Hyclate 250 ml @ 125 mls/hr Q12H 04/10/25 11:30 04/20/25 11:29 04/15/25 10:40 Insulin Human Regular INSULIN SLIDING SCAL... Q6H6 04/10/25 12:00 05/10/25 11:59 04/14/25 18:30 Thiamine HCl 100 mg DAILY 04/11/25 09:00 05/11/25 08:59 04/15/25 09:31 Vitamin B Complex/ Vit C/Folic Acid 1 cap DAILY 04/11/25 09:00 05/11/25 08:59 04/14/25 09:19 Meropenem 1 gm Q24H 04/11/25 02:00 04/21/25 01:59 04/15/25 01:46 Epoetin Prashanth-epbx 10,000 unit [id number] 04/12/25 09:00 05/12/25 08:59 04/15/25 09:32 Methylprednisolone Sodium Succinate 40 mg Q12H9 04/13/25 21:00 05/13/25 20:59 04/15/25 20:10 Gabapentin 100 mg TID 04/14/25 14:00 05/14/25 13:59 Hydromorphone HCl 0.2 mg Q4H PRN 04/14/25 11:30 04/19/25 11:29 Lidocaine 1 patch DAILY 04/15/25 09:00 05/15/25 08:59 04/15/25 09:32 Acetaminophen 650 mg Q6H PRN 04/14/25 20:30 05/14/25 20:29 Acetaminophen 1,000 mg Q6H6 PRN 04/15/25 12:30 05/15/25 12:29 04/15/25 12:15 Bacitracin apply to right and left thi... BID 04/15/25 21:00 05/15/25 20:59 PLAN: Hypoxic respiratory failure, requiring intubation. Pneumonia. Septic shock. Anemia, POA requiring blood transfusion. Right retroperitoneal hematoma. Right hydronephrosis. Acute on chronic renal failure. Elevated liver enzymes, improved. Morbid obesity. Diabetes mellitus. PLAN: Continue on linezolid IV. Continue on Meropenem. Continues on Doxycycline. Continue GI prophylaxis. Vasopressors were stopped today. Continue ventilatory support. Continue diuretics. General surgeon has evaluated patient. INDERJIT CRISTOBAL MD Apr 15, 2025 21:19
--- NOTE | 2025-04-15 21:40 | PN ---
INFECTIOUS DISEASE PROGRESS NOTE Date of Service: Apr 15, 2025 SUBJECTIVE: This is an 84-year-old female patient who has been extubated and during visit today patient was on oxygen via nasal cannula. Patient is oriented and voicing her needs well. WBC remains elevated at 31.5 but remaining afebrile, temperature is 98.7. Remains on Solu-Medrol IV Q 8 hours. Continues on linezolid IV and Meropenem and doxycycline. Patient is pending a speech therapy evaluation. PHYSICAL EXAM EYES: Anicteric. Pupils equal and reactive. HENT: No oral thrush seen, moist Oral mucosa NECK: Supple, no JVD or thyromegaly. LUNGS: Diminished breath sounds. On oxygen support CARDIOVASCULAR: S1, S2 regular. No murmur heard. ABDOMEN: Soft, non tender, bowel sounds present, no organomegaly CENTRAL NERVOUS SYSTEM: Oriented and alert SKIN: No rashes, no swelling. LYMPHATICS: No peripheral lymphadenopathy MUSCULOSKELETAL: No joint swelling, erythema or tenderness. EXTREMITIES: No cyanosis or clubbing. Generalized edema, improving. BACK: No deformity, no pressure ulcer. GENITOURINARY: No dysuria or hematuria, Mcdowell catheter. Vital Sign (Last 12 Hours) 04/15/25 04/15/25 04/15/25 04/15/25 09:29 09:30 09:45 10:00 Pulse 91 91 91 91 Resp 28 28 21 27 B/P (MAP) 99/43 (61) 99/43 (61) 104/50 (68) 110/68 (82) Pulse Ox 95 95 95 100 04/15/25 04/15/25 04/15/25 04/15/25 10:15 10:30 10:45 11:00 Pulse 91 91 91 91 Resp 20 17 20 24 B/P (MAP) 106/60 (75) 106/54 (71) 93/64 (74) 119/54 (75) Pulse Ox 95 95 95 95 04/15/25 04/15/25 04/15/25 04/15/25 11:15 11:30 11:30 11:45 Pulse 91 91 91 91 Resp 24 24 20 28 B/P (MAP) 89/55 (66) 119/61 (80) 113/62 (79) Pulse Ox 95 95 04/15/25 04/15/25 04/15/25 04/15/25 12:00 12:00 12:00 12:15 Temp 97.9 Pulse 91 91 Resp 24 23 B/P (MAP) 118/53 (74) 106/55 (72) Pulse Ox 94 93 O2 Delivery Bi-PAP+ FiO2 50 04/15/25 04/15/25 04/15/25 04/15/25 12:30 12:45 13:00 13:15 Pulse 91 91 91 91 Resp 18 17 20 20 B/P (MAP) 109/57 (74) 112/53 (72) 131/56 (81) 111/57 (75) Pulse Ox 95 92 90 96 04/15/25 04/15/25 04/15/25 04/15/25 13:30 13:45 14:00 14:30 Pulse 91 91 91 97 Resp 29 23 B/P (MAP) 110/55 (73) 99/53 (68) 126/69 (88) 108/57 (74) Pulse Ox 96 96 92 92 04/15/25 04/15/25 04/15/25 04/15/25 14:45 15:00 15:05 15:15 Pulse 91 91 91 Resp 29 28 30 B/P (MAP) 113/70 (84) 97/58 (71) 113/70 90/34 (52) Pulse Ox 92 94 93 04/15/25 04/15/25 04/15/25 04/15/25 15:45 16:00 16:00 16:00 Temp 97.5 Pulse 91 91 Resp 26 32 B/P (MAP) 120/50 (73) 93/78 (83) Pulse Ox 94 94 94 O2 Delivery Bi-PAP+ FiO2 50 04/15/25 04/15/25 04/15/25 04/15/25 16:05 16:15 16:30 16:45 Pulse 91 91 91 Resp 28 23 28 B/P (MAP) 120/50 105/59 (74) 116/71 (86) 106/82 (90) Pulse Ox 90 94 94 04/15/25 04/15/25 04/15/25 04/15/25 16:56 17:00 17:15 17:30 Pulse 91 91 91 91 Resp 22 24 25 23 B/P (MAP) 102/57 (72) 108/57 (74) 100/56 (71) Pulse Ox 94 98 98 FiO2 50 04/15/25 04/15/25 04/15/25 04/15/25 17:45 18:00 18:15 18:30 Pulse 91 91 91 91 Resp B/P (MAP) 94/59 (71) 104/62 (76) 120/44 (69) 107/46 (66) Pulse Ox 98 98 98 98 04/15/25 04/15/25 04/15/25 04/15/25 18:45 19:07 19:08 19:08 Pulse 91 91 91 91 Resp B/P (MAP) 104/50 (68) 94/55 (68) Pulse Ox 98 98 FiO2 50 04/15/25 04/15/25 04/15/25 04/15/25 19:32 19:37 19:53 20:00 Pulse 91 91 91 Resp B/P (MAP) 100/59 (73) 101/37 (58) 101/55 (70) Pulse Ox 98 98 98 98 O2 Delivery Bi-PAP+ FiO2 50 04/15/25 20:28 Temp 95.5 Intake & Output (last 24hrs) 04/14/25 04/14/25 04/15/25 15:00 23:00 07:00 Intake Total 656.4 ml 936.4 ml 474.3 ml Output Total 900 ml 800 ml Balance 656.4 ml 36.4 ml -325.7 ml LABS: Laboratory: Test 04/15/25 17:24 04/15/25 14:27 04/15/25 09:07 04/15/25 04:45 Range/Units Whole Blood Glucose 171 H 70-110 MG/DL Urine Random Sodium 79 40-220 mmol/l Urine Random Potassium 31 25-125 mmol/L Urine Random Chloride 101 L 110-250 mmol/L Blood Gas Specimen Type Arterial Arterial Blood pH 7.460 H 7.350-7.450 Arterial Blood Partial Pressure CO2 39 32-45 mmHg Arterial Blood Partial Pressure O2 82.7 L 83.0-108.0 mmHg Arterial Blood HCO3 26.8 21.0-28.0 mmol/L Arterial Blood Oxygen Saturation 95.7 94.0-98.0 % Arterial Blood Base Excess 2.8 -2.0-3.0 mmol/L Hemoglobin (Blood Gas) 8.2 L 12.0-16.0 g/dL Sodium (Blood Gas) 137 136-145 MMOL/L Bedside Potassium (Blood Gas) 3.5 3.4-4.5 MMOL/L Bedside Chloride (Blood Gas) 100 98-107 MMOL/L Bedside Glucose (Blood Gas) 168 H 65-95 MG/DL Bedside Ionized Calcium (Blood Gas) 1.04 L 1.15-1.33 MMOL/L Bedside Lactic Acid (Blood Gas) 2.68 H 0.36-0.75 MMOL/L Blood Gas Temperature 37.0 35.5-37.0 CELSIUS Blood Gas Respiration Rate 12.0 min. Blood Gas Vent Mode BIPAP 10-5 ROOM AIR FiO2 50.0 % Blood Gas Specimen Comment LR,JARRED White Blood Count 31.5 *H 4.8-10.8 K/uL Red Blood Count 2.28 L 4.00-5.50 MIL/uL Hemoglobin 7.4 L 12.0-16.0 g/dL Hematocrit 22.6 L 36-48 % Mean Corpuscular Volume 99.1 H 79-99 fL Mean Corpuscular Hemoglobin 32.5 27.0-33.0 pg Mean Corpuscular Hemoglobin Concent 32.7 32.0-36.0 g/dL Red Cell Distribution Width 19.0 H 11.0-15.5 % Platelet Count 123 L 130-400 K/uL Mean Platelet Volume 11.6 H 7.5-10.5 fL Nucleated Red Blood Cells 0.3 H 0.0-0.19 % Sodium Level 140 136-145 mmol/L Potassium Level 3.6 3.5-5.1 mmol/L Chloride Level 99 L 101-111 mmol/L Carbon Dioxide Level 28 21-32 mmol/L Blood Urea Nitrogen 106 *H 7-18 mg/dL Creatinine 3.3 H 0.5-1.0 mg/dL Glomerular Filtration Rate Calc 13 >90 mL/min Random Glucose 153 H 70-105 mg/dL Total Calcium 7.7 L 8.5-10.1 mg/dL Total Bilirubin 1.6 H 0.2-1.0 mg/dL Aspartate Amino Transf (AST/SGOT) 34 10-37 U/L Alanine Aminotransferase (ALT/SGPT) 106 H 12-78 U/L Alkaline Phosphatase 165 H 50-136 U/L Total Protein 4.0 L 6.0-8.3 g/dL Albumin 1.6 L 3.5-5.0 g/dL Test 04/14/25 08:46 04/14/25 08:38 Range/Units Blood Gas Tidal Volume 450 ml Blood Gas PEEP 5 cm H2O Segmented Neutrophils % 98 H 40-70 % Lymphocytes % (Manual) 1 L 22-44 % Monocytes % (Manual) 1 L 2-9 % Differential Comment MANUAL DIFFERENTIAL White Cell Morphology Comment Platelet Morphology Comment SLIGHTLY DECREASED Red Blood Cell Morphology ANISO 1+ Magnesium Level 2.00 1.80-2.40 mg/dL ASSESSMENT: Hypoxic respiratory failure, requiring intubation, s/p extubated. Healthcare associated Pneumonia. Septic shock. Anemia, POA requiring blood transfusion. Acute on chronic renal failure. Heart failure. Elevated liver enzymes, improved. Morbid obesity. Diabetes mellitus. PLAN: Continue on linezolid IV. Continue on Meropenem. Continues on Doxycycline. Continue GI prophylaxis. Continue oxygen support. Continue diuretics. Continue critical care support. Pending speech therapy evaluation. This case was reviewed and discussed with my supervising physician Dr. Rawls and the above assessment and plan was formulated and agreed upon. ATTESTATION BY PHYSICIAN I have seen and examined the patient. I reviewed the documentation, medical decision making, and treatment plan as noted by the mid-level provider above. I agree with the findings and plan of care. CASSY RAWLS MD, [facility] Apr 15, 2025 21:40
--- NOTE | 2025-04-15 21:51 | HMCIMG ---
EXAM: CR CHEST, 1 VIEW CLINICAL HISTORY: bipap support COMPARISON: CR: CHEST 1VW dated 04/13/2025 06:08 AM EST: TECHNIQUE: Single frontal radiograph of the chest was obtained. FINDINGS: Lines/Devices: A pacemaker is seen with intact leads. The previously noted endotracheal tube is not seen, mostly removed. Lungs: stationary course as regards the previously noted central pulmonary congestion seen in both lungs. Blunted left costophrenic angle still noted, suggestive of minimal pleural effusion. There is no pneumothorax. Mediastinum and cardiovascular structures: Still noted mild cardiomegaly. Prominent aortic calcifications with atheromatous calcifications. The central airway and mediastinal contours are unremarkable. Bones and soft tissues: Unremarkable. IMPRESSION: 1. Mild reduction in the previously noted central pulmonary venous congestion. 2. Blunted left costophrenic angle, suggestive of minimal pleural effusion. 3. Mild cardiomegaly. 4. Prominent aortic calcifications with atheromatous calcifications. 5.As compared to the previous CR: CHEST 1VW dated 04/13/2025 06:08 AM EST, stationary course as regards the previously noted central pulmonary congestion as well as mild cardiomegaly, the previously noted endotracheal tube is not seen in today's study, likely surgically removed .No new findings /[place]
[2025-04-16] VITALS (86 sets, daily range): BP systolic 75–164; BP diastolic 31–116; PULSE 31–95; RESP 15–30; TEMP 95.5–98; O2SAT 90–98
[2025-04-16 05:15] LABS: NUCLEATED RED BLOOD CELLS 0.2 % (0.0-0.19); PLATELET COUNT (AUTO) 121 K/uL (130-400); RED BLOOD CELL COUNT(AUTO) 2.26 MIL/uL (4.00-5.50); RED CELL DISTRIBUTION WIDTH 18.9 % (11.0-15.5); WHITE BLOOD COUNT (AUTO) 28.7 K/uL (4.8-10.8)
[2025-04-16 05:33] LABS: BAND NEUTROPHILS % (MANUAL) 3 % (0-2); MAN.DIFF COMMENT-IMPRESSION MANUAL DIFFERENTIAL; SEGMENTED NEUTROPHILS % 97 % (40-70)
[2025-04-16 05:34] LABS: PLATELET MORPHOLOGY COMMENT SLIGHTLY DECREASED
[2025-04-16 05:48] LABS: ASPARTATE AMINOTRANSFERASE 40.0 U/L (10-37); CREATININE 3.3 mg/dL (0.5-1.0); GLOMERULAR FILTR. RATE CALC 13.0 mL/min (>90); GLUCOSE,RANDOM 177.0 mg/dL (70-105); PHOSPHORUS 9.0 mg/dL (2.5-4.9); SODIUM SERUM 144.0 mmol/L (136-145); TOTAL PROTEIN, SERUM 4.0 g/dL (6.0-8.3)
[2025-04-16 05:51] LABS: UREA NITROGEN, BLOOD 111.0 mg/dL (7-18)
[2025-04-16 07:41] LABS: ABG BASE EXCESS 1.9 mmol/L (-2.0-3.0); ABG HCO3 26.1 mmol/L (21.0-28.0); ABG OXYGEN SATURATION 96.8 % (94.0-98.0); ABG PCO2 39 mmHg (32-45); ABG PH 7.444 (7.350-7.450); CARBON MONOXIDE 0.9 % (0.5-1.5); DEVICE COMMENT RR EDDIERN; PO2, ARTERIAL BG 97.6 mmHg (83.0-108.0); TEMPERATURE, CELSIUS BG 37.0 CELSIUS (35.5-37.0); VENT MODE, BG BIPAP 12 6 (ROOM AIR)
--- NOTE | 2025-04-16 08:06 | HMCIMG ---
EXAM: CR Chest, single view. CLINICAL HISTORY: Shortness of breath. COMPARISON: Prior chest radiograph dated April 15, 2025 FINDINGS: Right-sided central venous catheter with tip in the superior vena cava. Mild cardiomegaly with bilateral pulmonary congestion. Mild bilateral pleural effusion is left more than right with adjacent lung atelectasis. Patchy areas of groundglass opacities in the right parahilar region are probable pulmonary edema. A battery pack is in the left anterior chest wall with pacemaker wires in the right atrium and ventricles. No acute osseous abnormality. Degenerative changes in the mid and lower thoracic spine. IMPRESSION: Right-sided central venous catheter with tip in the superior vena cava. Mild cardiomegaly with bilateral pulmonary congestion. Mild bilateral pleural effusion is left more than right with adjacent lung atelectasis. Patchy areas of groundglass opacities in the right parahilar region are probable pulmonary edema. A battery pack is in the left anterior chest wall with pacemaker wires in the right atrium and ventricles. Compared to the prior study, there is an interval progression of bilateral pleural effusion development of groundglass opacities in the right parahilar region. /[place]
--- NOTE | 2025-04-16 14:47 | PN ---
[facility] PROGRESS NOTE Date Patient Seen: Apr 16, 2025 Time of Visit: 14:42 Supervising Physician: Dr Angus Herring Primary Care Physician: SAMIA MENDOZA MD Outpatient Specialists: [ ] Inpatient Consults: BIS PROBLEM LIST: Large right retroperitoneal hematoma displacing the right kidney, present on admission Acute hypoxic respiratory failure present on admission currently on mechanical ventilatory support via endotracheal tube Severe sepsis with shock Severe metabolic acidosis Hospital-acquired pneumonia Acute complicated cystitis Severe anemia, requiring transfusion Acute on chronic kidney disease Atrial fibrillation on chronic anticoagulation therapy Dilated cardiomyopathy ejection fraction 35-40% with moderate pulmonary hypotension Remote CVA Hx of Right lower extremity DVT History of right TKA Suspected AICD malfunction Status post AICD INTERVAL HISTORY: Patient was seen and examined all labs and imaging have been reviewed, nursing reports no acute events overnight, patient afebrile Patient is sitting comfortably in bed, continues to be an edematous, we will continue to diurese but minimal output A little over 1 L output overnight She continues on the Dobutrex and Lasix, we will add metolazone 5 mg b.i.d. She continues on BiPAP, we will try to transitioned to high-flow so we can resume her diet White count is down Hemoglobin 7.4, platelets 121 She has an echo with an EF of 35% and a RVSP of 30 Plan: Continue with supplemental O2, currently on BiPAP, we will transition to high- flow to start diet. Follow nephrology recs, I&Os , metolazone 5 mg b.i.d. Trending hemoglobin, Supplemental O2 Continue follow cultures, she is on Merrem, doxy and Zyvox Total critical care time spent 39 minutes, this excludes any procedures performed or any time spent in educational or teaching. REVIEW OF SYSTEMS: On mechanical ventilator support, non verbal. But she is able to nod yes and no and she is awake and following commands. PHYSICAL EXAM: GENERAL: Patient awake alert and following commands HEENT: , EOMI, Sclera non icteric, moist mucosa NECK: Supple, no JVD, trachea midline LUNGS: Decreased breath sounds, no wheezing. HEART: Irregular rate. Normal S1 and S2, without murmurs ABD: Abdomen soft, nontender. Bowel sounds present large right retroperitoneal hematoma EXT: 3+ edema to the upper extremities bilaterally with some weeping, 4+ edema to the lower extremities bilaterally. NEURO: A&O times1 Vital Signs (last 8hr) Date Time Temp Pulse Resp B/P (MAP) Pulse Ox O2 Delivery O2 Flow Rate FiO2 04/16/25 14:32 54 21 N/Cannula Low lpm 5.0 40 04/16/25 13:30 46 116/59 (78) 81 04/16/25 13:00 44 92/63 (73) 65 04/16/25 12:30 38 77/51 (60) 65 04/16/25 12:00 97.5 BIPAP 75 04/16/25 12:00 84 99/37 (57) 64 04/16/25 11:31 99/37 04/16/25 11:30 90 22 127/51 (76) 70 04/16/25 11:15 75 22 161/94 (116) 83 04/16/25 11:00 31 22 136/53 (80) 68 04/16/25 10:53 31 20 136/53 (80) 68 04/16/25 10:45 90 22 102/74 (83) 88 04/16/25 10:39 53 25 75 04/16/25 10:34 88 25 04/16/25 10:31 96/79 04/16/25 10:30 47 22 124/91 (102) 68 04/16/25 10:15 47 22 124/91 (102) 68 04/16/25 10:00 46 22 96/79 (85) 71 04/16/25 09:45 58 26 100/69 (79) 74 04/16/25 09:30 36 26 108/54 (72) 71 04/16/25 09:15 37 21 95/79 (84) 91 04/16/25 09:00 65 26 101/43 (62) 91 04/16/25 08:45 65 25 114/63 (80) 91 04/16/25 08:15 95 20 85/68 (74) 91 04/16/25 08:00 69 22 76/32 (47) 91 04/16/25 08:00 98.1 BIPAP 75 04/16/25 07:45 59 22 109/67 (81) 91 04/16/25 07:30 52 22 113/51 (71) 91 04/16/25 07:00 52 22 131/59 (83) 91 04/16/25 06:56 52 26 04/16/25 06:46 52 26 75 LABS: Hematology Labs: Test 04/16/25 04:43 Range/Units White Blood Count 28.7 H 4.8-10.8 K/uL Red Blood Count 2.26 L 4.00-5.50 MIL/uL Hemoglobin 7.4 L 12.0-16.0 g/dL Hematocrit 22.2 L 36-48 % Mean Corpuscular Volume 98.2 79-99 fL Mean Corpuscular Hemoglobin 32.7 27.0-33.0 pg Mean Corpuscular Hemoglobin Concent 33.3 32.0-36.0 g/dL Red Cell Distribution Width 18.9 H 11.0-15.5 % Platelet Count 121 L 130-400 K/uL Mean Platelet Volume 12.2 H 7.5-10.5 fL Segmented Neutrophils % 97 H 40-70 % Band Neutrophils % 3 H 0-2 % Nucleated Red Blood Cells 0.2 H 0.0-0.19 % Differential Comment MANUAL DIFFERENTIAL White Cell Morphology Comment Platelet Morphology Comment SLIGHTLY DECREASED Red Blood Cell Morphology See comments Chemistry Labs: Test 04/16/25 12:21 04/16/25 04:43 Range/Units Whole Blood Glucose 152 H 70-110 MG/DL Sodium Level 144 136-145 mmol/L Potassium Level 3.7 3.5-5.1 mmol/L Chloride Level 103 101-111 mmol/L Carbon Dioxide Level 26 21-32 mmol/L Blood Urea Nitrogen 111 *H 7-18 mg/dL Creatinine 3.3 H 0.5-1.0 mg/dL Glomerular Filtration Rate Calc 13 >90 mL/min Random Glucose 177 H 70-105 mg/dL Total Calcium 7.5 L 8.5-10.1 mg/dL Phosphorus Level 9.0 H 2.5-4.9 mg/dL Magnesium Level 2.00 1.80-2.40 mg/dL Total Bilirubin 1.9 H 0.2-1.0 mg/dL Aspartate Amino Transf (AST/SGOT) 40 H 10-37 U/L Alanine Aminotransferase (ALT/SGPT) 103 H 12-78 U/L Alkaline Phosphatase 163 H 50-136 U/L Total Protein 4.0 L 6.0-8.3 g/dL Albumin 1.7 L 3.5-5.0 g/dL DIAGNOSTICS / RADIOLOGY RESULTS: [ ] PLAN NEURO: Minimize central acting medications as possible. Fall Precautions. Well lighted room through the day and minimize interruptions through the night to prevent acute delirium. PULMONARY: On mechanical ventilator support via endotracheal tube at this time CARDIOVASCULAR: Follow hemodynamics. Titrate vasopressor to keep MAP >65 or systolic blood pressure >95mmHg DIPS: [ Levophed ] GI & NUTRITION: Continue nutritional support Aspirations precautions Prokinetic agents and laxatives as needed KIDNEYS & ELECTROLYTES: Strict monitoring of intake and output Daily weights Avoid nephrotoxic agents Monitor electrolytes and replace as needed Goal urine output of 30mL/hr or 0.5mL/kg/hr ENDOCRINE: Maintain blood glucose between 100-180 at all times. Insulin sliding scale for blood glucose management INFECTIOUS DISEASE: Trend temperature. [place]-culture if febrile. Micro: [Pending results ] Antibiotics: [ As per I and D] HEMATOLOGY & COAGULATION: Monitor H&H. Keep Hgb > 7 Transfuse 1 unit of PRBC for Hgb < 7 Transfuse 1 pack of platelets of platelets < 20, 000 Watch for any signs and symptoms of bleeding SKIN: Pressure ulcer prevention per facility protocol Rehab: PT/OT Prophylaxis: GI: [ Protonix 40 mg IV b.i.d.] DVT: [SCDs to the lower extremities ] Code Status: Full Resuscitation Disposition: [Continue medical management in the ICU ] BOYD GUERRA PAC Apr 16, 2025 14:47
--- NOTE | 2025-04-16 15:00 | NUR ---
SPEECH NOTE: Patient scheduled for MBSS; however, transporter was told by nurse patient is not stable at this time to go down to radiology. Pt has been on and off of BiPAP. MBSS will be on hold until patient is stable to participate. Recommend short term alternate means of nutrition/hydration until MBSS. Addendum: 04/16/[address] [facility] Amended: Links added.
--- NOTE | 2025-04-16 15:20 | PN ---
NEPHROLOGY PROGRESS NOTE Date/Time Patient Seen: Apr 16, 2025 SUBJECTIVE: This is an 84-year-old female who was sent to the Emergency Room from the [facility] and the patient has shortness of breath and chest pain. CT scan showed Large right retroperitoneal hematoma extending along the iliopsoas and into the right iliacus, displacing the right kidney. Continues to require vasopressors to maintain blood pressure She has been in the hospital for several days and was noted with worsening renal failure She was noted to have elevated BUN and creatinine, She has had acute on chronic renal dysfunction while in the hospital Creatinine has been elevated She continues on Dobutrex and Lasix She has been started on metolazone5 mg p.o. b.i.d. She has been extubated, continues on BiPAP The patient has been seen for all of the above Renal function remains elevated Electrolytes are stable. She was seen in the ICU Family at the bedside Condition is critical and guarded REVIEW OF SYSTEMS: GENERAL: Negative for any nausea, vomiting, fevers, chills, or weight loss. NEUROLOGIC: Negative for any blurry vision, blind spots, double vision, facial asymmetry, dysphagia, dysarthria, hemiparesis, hemisensory deficits, vertigo, ataxia. HEENT: Negative for any head trauma, neck trauma, neck stiffness, photophobia, phonophobia, sinusitis, rhinitis. CARDIAC: Negative for any chest pain, dyspnea on exertion, paroxysmal nocturnal dyspnea, peripheral edema. PULMONARY: Negative for any shortness of breath, wheezing, COPD, or TB exposure. GASTROINTESTINAL: Negative for any abdominal pain, nausea, vomiting, bright red blood per rectum, melena. GENITOURINARY: Negative for any dysuria, hematuria, incontinence. INTEGUMENTARY: Negative for any rashes, cuts, insect bites. RHEUMATOLOGIC: Negative for any joint pains, photosensitive rashes, history of vasculitis or kidney problems. HEMATOLOGIC: Negative for any abnormal bruising, frequent infections or bleeding. PHYSICAL EXAM: GENERAL: Pale, acutely ill female, lethargic, no acute distress. Well-nourished. EYES: EOMI. Anicteric. HENT: Moist mucous membranes. No scleral icterus. No cervical lymphadenopathy. LUNGS: Clear to auscultation bilaterally. No accessory muscle use. CARDIOVASCULAR: Regular rate and rhythm. No murmur. No JVD. ABDOMEN: Soft, non-tender and non-distended. No palpable masses. EXTREMITIES: No edema. Non-tender. SKIN: No rashes or lesions. Warm. NEUROLOGIC: No focal neurological deficits. CN II-XII grossly intact, but not individually tested. PSYCHIATRIC: Cooperative. Appropriate mood and affect. LABORATORY: [ ] Hematology Labs: Test 04/16/25 04:43 Range/Units White Blood Count 28.7 H 4.8-10.8 K/uL Red Blood Count 2.26 L 4.00-5.50 MIL/uL Hemoglobin 7.4 L 12.0-16.0 g/dL Hematocrit 22.2 L 36-48 % Mean Corpuscular Volume 98.2 79-99 fL Mean Corpuscular Hemoglobin 32.7 27.0-33.0 pg Mean Corpuscular Hemoglobin Concent 33.3 32.0-36.0 g/dL Red Cell Distribution Width 18.9 H 11.0-15.5 % Platelet Count 121 L 130-400 K/uL Mean Platelet Volume 12.2 H 7.5-10.5 fL Segmented Neutrophils % 97 H 40-70 % Band Neutrophils % 3 H 0-2 % Nucleated Red Blood Cells 0.2 H 0.0-0.19 % Differential Comment MANUAL DIFFERENTIAL White Cell Morphology Comment Platelet Morphology Comment SLIGHTLY DECREASED Red Blood Cell Morphology See comments Chemistry Labs: Test 04/16/25 12:21 04/16/25 04:43 Range/Units Whole Blood Glucose 152 H 70-110 MG/DL Sodium Level 144 136-145 mmol/L Potassium Level 3.7 3.5-5.1 mmol/L Chloride Level 103 101-111 mmol/L Carbon Dioxide Level 26 21-32 mmol/L Blood Urea Nitrogen 111 *H 7-18 mg/dL Creatinine 3.3 H 0.5-1.0 mg/dL Glomerular Filtration Rate Calc 13 >90 mL/min Random Glucose 177 H 70-105 mg/dL Total Calcium 7.5 L 8.5-10.1 mg/dL Phosphorus Level 9.0 H 2.5-4.9 mg/dL Magnesium Level 2.00 1.80-2.40 mg/dL Total Bilirubin 1.9 H 0.2-1.0 mg/dL Aspartate Amino Transf (AST/SGOT) 40 H 10-37 U/L Alanine Aminotransferase (ALT/SGPT) 103 H 12-78 U/L Alkaline Phosphatase 163 H 50-136 U/L Total Protein 4.0 L 6.0-8.3 g/dL Albumin 1.7 L 3.5-5.0 g/dL DIAGNOSTICS / RADIOLOGY: [place] [id number] [place] [address] IMAGING REPORT Signed PATIENT: LORE OCONNELL MR#: [id number] : 1940 SEX: F AGE: 84 LOCATION: 2CH ORDER 2 STATUS: ADM IN REPORT#: [id number] SERVICE REASON: SOB ORDERING PHYSICIAN: BOYD GUERRA PAC PROCEDURE: CXR1VW - CHEST 1VW EXAM: CR Chest, single view. CLINICAL HISTORY: Shortness of breath. COMPARISON: Prior chest radiograph dated April 15, 2025 FINDINGS: Right-sided central venous catheter with tip in the superior vena cava. Mild cardiomegaly with bilateral pulmonary congestion. Mild bilateral pleural effusion is left more than right with adjacent lung atelectasis. Patchy areas of groundglass opacities in the right parahilar region are probable pulmonary edema. A battery pack is in the left anterior chest wall with pacemaker wires in the right atrium and ventricles. No acute osseous abnormality. Degenerative changes in the mid and lower thoracic spine. IMPRESSION: Right-sided central venous catheter with tip in the superior vena cava. Mild cardiomegaly with bilateral pulmonary congestion. Mild bilateral pleural effusion is left more than right with adjacent lung atelectasis. Patchy areas of groundglass opacities in the right parahilar region are probable pulmonary edema. A battery pack is in the left anterior chest wall with pacemaker wires in the right atrium and ventricles. Compared to the prior study, there is an interval progression of bilateral pleural effusion development of groundglass opacities in the right parahilar region. /[place] DICTATED BY: SHAKIR GARCIA Jr., MD DATE: 04/16/25904 ELECTRONICALLY SIGNED BY: SHAKIR GARCIA Jr., MD DATE: 04/16/25904 PATIENT: LORE OCONNELL MR#: [id number] : 1940 SEX: F AGE: 84 LOCATION: 2CH ORDER 8 STATUS: ADM IN REPORT#: [id number] SERVICE 6 REASON: bipap support ORDERING PHYSICIAN: BOYD GUERRA PAC PROCEDURE: CXR1VW - CHEST 1VW EXAM: CR CHEST, 1 VIEW CLINICAL HISTORY: bipap support COMPARISON: CR: CHEST 1VW dated 04/13/2025 06:08 AM EST: TECHNIQUE: Single frontal radiograph of the chest was obtained. FINDINGS: Lines/Devices: A pacemaker is seen with intact leads. The previously noted endotracheal tube is not seen, mostly removed. Lungs: stationary course as regards the previously noted central pulmonary congestion seen in both lungs. Blunted left costophrenic angle still noted, suggestive of minimal pleural effusion. There is no pneumothorax. Mediastinum and cardiovascular structures: Still noted mild cardiomegaly. Prominent aortic calcifications with atheromatous calcifications. The central airway and mediastinal contours are unremarkable. Bones and soft tissues: Unremarkable. IMPRESSION: 1. Mild reduction in the previously noted central pulmonary venous congestion. 2. Blunted left costophrenic angle, suggestive of minimal pleural effusion. 3. Mild cardiomegaly. 4. Prominent aortic calcifications with atheromatous calcifications. 5.As compared to the previous CR: CHEST 1VW dated 04/13/2025 06:08 AM EST, stationary course as regards the previously noted central pulmonary congestion as well as mild cardiomegaly, the previously noted endotracheal tube is not seen in today's study, likely surgically removed .No new findings /[place]ren DICTATED BY: HENRIK FOX MD DATE: 04/15/252249 ELECTRONICALLY SIGNED BY: HENRIK FOX MD DATE: 04/15/252249 PATIENT: LORE OCONNELL MR#: [id number] : 1940 SEX: F AGE: 84 LOCATION: 2CH ORDER 99 STATUS: ADM IN REPORT#: [id number] SERVICE 9 REASON: chf ORDERING PHYSICIAN: SHADE YOUNGBLOOD MD PROCEDURE: CXR1VW - CHEST 1VW EXAM: CR Chest, 1 View. CLINICAL HISTORY: CHF COMPARISON: 04/12/2025 FINDINGS: The ET tube tip is 4.4 cm away from the juanito. The nasogastric tube is seen below the left hemidiaphragm. LUNGS: Left basilar atelectasis. Otherwise, the lungs are essentially clear. PLEURAL SPACES: No pneumothorax. Stable small left pleural effusion. MEDIASTINUM: Mild cardiomegaly with interval reduction in the central pulmonary venous congestion in both lungs. The pacemaker leads overlie the right atrium and right ventricle. BONES: No acute osseous abnormality. IMPRESSION: 1. Mild cardiomegaly with interval reduction in central pulmonary venous congestion. 2. Stable small left pleural effusion. 3. ET tube tip 4.4 cm from juanito. 4. Nasogastric tube below the left hemidiaphragm. /[place]ren DICTATED BY: SHAKIR GARCIA Jr., MD DATE: 04/13/251035 ELECTRONICALLY SIGNED BY: SHAKIR GARCIA Jr., MD DATE: 04/13/251035 PATIENT: LORE OCONNELL MR#: [id number] : 1940 SEX: F AGE: 84 LOCATION: [facility] ORDER 99 STATUS: ADM IN REPORT#: [id number] SERVICE 06 REASON: PNA ORDERING PHYSICIAN: ZENOBIA PEREZ MD PROCEDURE: CXR1VW - CHEST 1VW CHEST 1VW REASON: PNA COMPARISON: Prior chest radiograph from 04/09/2025 is available. FINDINGS: Single view of the chest was obtained. The study is limited due to poor inspiratory radiograph patient is rotated.. The lung [place] are clear. There is no evidence of any vascular congestion. There is mild cardiomegaly with left ventricular contour. There is a support lines including endotracheal tube and nasogastric tube are in satisfactory position. There is a left-sided pacemaker with lead in right atrium and right ventricle.. Mediastinum and bony thorax appear unremarkable. The bony thorax demonstrate mild osteopenia. IMPRESSION: 1. Mild cardiomegaly 2. Support lines satisfactory position 3. Limited study with no evidence of airspace consolidation or pulmonary venous congestion. DICTATED BY: JADEN CHAVIRA MD DATE: 04/10/251251 ELECTRONICALLY SIGNED BY: JADEN CHAVIRA MD DATE: 04/10/251255 PATIENT: LORE OCONNELL MR#: [id number] : 1940 SEX: F AGE: 84 LOCATION: [facility] ORDER 6 STATUS: ADM IN REPORT#: [id number] SERVICE 2 REASON: septic/SOB ORDERING PHYSICIAN: ZENOBIA PEREZ MD PROCEDURE: CAP WO - CT CHEST/ABD/PELV W/O CONTRAST ADDENDUM REPORT ADDENDUM: Results were shared by telephone at 09:07 PM on 04-08-2025 and acknowledged by the Patient's Nurse Ms. Sue Quinones /[place] EXAM: CT Chest, Abdomen and Pelvis without Intravenous Contrast CLINICAL HISTORY: evaluation of sepsis. TECHNIQUE: Axial computed tomography images of the chest, abdomen and pelvis without intravenous contrast. Dose reduction technique was used including one or more of the following: automated exposure control, adjustment of mA and kV according to patient size, and/or iterative reconstruction. Total exam DLP is 1117 mGy x cm. CONTRAST: None. COMPARISON: Prior chest radiograph dated 04/08/2025, acquired at 04:52 hours. FINDINGS: CHEST: LUNGS: Endotracheal tube with its tip positioned 3.5 cm short of juanito. Moderate sized bilateral pleural effusions with atelectasis/consolidation of the lung bases. Multifocal areas of ground-glass opacities, mosaic attenuation are present in the remainder of the lung parenchyma bilaterally. PLEURAL SPACES: Moderate sized bilateral pleural effusions. No pneumothorax. HEART AND MEDIASTINUM: Left chest wall pacemaker with electrodes terminating in the lumen of the coronary sinus and the right heart chambers. Atheromatous calcification of the aortic arch and the coronary arteries. Right sided PICC line visualized with its tip terminating in the right brachiocephalic vein. Feeding tube visualized with its tip terminating at the gastroesophageal junction. Mild cardiomegaly. Coronary arterial calcifications present. Mitral and aortic valve annulus calcifications. No significant pericardial effusion. LYMPH NODES: No lymphadenopathy. ABDOMEN AND PELVIS: LIVER: Ill-defined hypodense area measuring 2 x 2.1 cm in the segment VII of the subcapsular region of the right hepatic lobe, without areas of calcification or fat in it. GALLBLADDER AND BILE DUCTS: Gallbladder is surgically absent. No biliary ductal dilatation. PANCREAS: Pancreas is atrophic. No pancreatic ductal dilatation or calculi. SPLEEN: Spleen is atrophic and shrunken with areas of capsular calcifications. ADRENAL GLANDS: Unremarkable. KIDNEYS, URETERS, AND BLADDER: Bilateral intrarenal segmental arterial calcifications. Multiple right sided renal calculi, measuring up to 4 mm. A Mcdowell's catheter is appropriately positioned in the bladder lumen. No hydronephrosis. No ureteral or bladder calculi. STOMACH AND BOWEL: Evidence of prior surgical intervention involving the stomach, incompletely evaluated due to lack of optimal luminal distension. Gastric bypass surgery status with appropriate position of the gastrojejunal anastomosis. No obstruction. No wall thickening. No CT evidence of colitis or acute diverticulitis. APPENDIX: No CT evidence for appendicitis. PERITONEUM: No free fluid. No free air. LYMPH NODES: No lymphadenopathy. REPRODUCTIVE: Uterus is not distinctly visualized. VASCULATURE: The abdominal aorta demonstrates atheromatous calcification without aneurysm or dissection. BONES AND SOFT TISSUES: Diffuse body wall edema. Right retroperitoneal space hyperdense collection, measuring approximately 14 x 7 x 25 cm, visualized on the anterior aspect of the iliopsoas. It is extending toward the right groin. The right iliacus muscle also appears bulky with similar hyperdense contents, likely representing hematoma. The collection is visualized in the retroperitoneal compartment and is displacing the right kidney anteriorly. Severe osteopenia. Chronic appearing compression deformities of multiple thoracolumbar vertebrae, including T6, T8, T9, T11, T1. The maximum vertebral height loss is visualized at T11 level with increased thoracolumbar junction kyphosis. Grade I anterolisthesis of L4 over L5 without spondylolysis. Dextroscoliosis of the thoracolumbar spine curvature. IMPRESSION: 1. Findings consistent with aspiration pneumonitis. Compared with the prior chest radiograph dated 04/08/2025, acquired at 04:52 hours, the pulmonary parenchymal findings are stable. Right PICC line and the feeding tube need to be repositioned. 2. Large right retroperitoneal hematoma extending along the iliopsoas and into the right iliacus, displacing the right kidney. 3. Several stable chronic and incidental findings are noted, as detailed in the body of the report. /[place] DICTATED BY: HENRIK FOX MD DATE: 04/08/252128 ELECTRONICALLY SIGNED BY: DATE: EXAM: CT Chest, Abdomen and Pelvis without Intravenous Contrast CLINICAL HISTORY: evaluation of sepsis. TECHNIQUE: Axial computed tomography images of the chest, abdomen and pelvis without intravenous contrast. Dose reduction technique was used including one or more of the following: automated exposure control, adjustment of mA and kV according to patient size, and/or iterative reconstruction. Total exam DLP is 1117 mGy x cm. CONTRAST: None. COMPARISON: Prior chest radiograph dated 04/08/2025, acquired at 04:52 hours. FINDINGS: CHEST: LUNGS: Endotracheal tube with its tip positioned 3.5 cm short of juanito. Moderate sized bilateral pleural effusions with atelectasis/consolidation of the lung bases. Multifocal areas of ground-glass opacities, mosaic attenuation are present in the remainder of the lung parenchyma bilaterally. PLEURAL SPACES: Moderate sized bilateral pleural effusions. No pneumothorax. HEART AND MEDIASTINUM: Left chest wall pacemaker with electrodes terminating in the lumen of the coronary sinus and the right heart chambers. Atheromatous calcification of the aortic arch and the coronary arteries. Right sided PICC line visualized with its tip terminating in the right brachiocephalic vein. Feeding tube visualized with its tip terminating at the gastroesophageal junction. Mild cardiomegaly. Coronary arterial calcifications present. Mitral and aortic valve annulus calcifications. No significant pericardial effusion. LYMPH NODES: No lymphadenopathy. ABDOMEN AND PELVIS: LIVER: Ill-defined hypodense area measuring 2 x 2.1 cm in the segment VII of the subcapsular region of the right hepatic lobe, without areas of calcification or fat in it. GALLBLADDER AND BILE DUCTS: Gallbladder is surgically absent. No biliary ductal dilatation. PANCREAS: Pancreas is atrophic. No pancreatic ductal dilatation or calculi. SPLEEN: Spleen is atrophic and shrunken with areas of capsular calcifications. ADRENAL GLANDS: Unremarkable. KIDNEYS, URETERS, AND BLADDER: Bilateral intrarenal segmental arterial calcifications. Multiple right sided renal calculi, measuring up to 4 mm. A Mcdowell's catheter is appropriately positioned in the bladder lumen. No hydronephrosis. No ureteral or bladder calculi. STOMACH AND BOWEL: Evidence of prior surgical intervention involving the stomach, incompletely evaluated due to lack of optimal luminal distension. Gastric bypass surgery status with appropriate position of the gastrojejunal anastomosis. No obstruction. No wall thickening. No CT evidence of colitis or acute diverticulitis. APPENDIX: No CT evidence for appendicitis. PERITONEUM: No free fluid. No free air. LYMPH NODES: No lymphadenopathy. REPRODUCTIVE: Uterus is not distinctly visualized. VASCULATURE: The abdominal aorta demonstrates atheromatous calcification without aneurysm or dissection. BONES AND SOFT TISSUES: Diffuse body wall edema. Right retroperitoneal space hyperdense collection, measuring approximately 14 x 7 x 25 cm, visualized on the anterior aspect of the iliopsoas. It is extending toward the right groin. The right iliacus muscle also appears bulky with similar hyperdense contents, likely representing hematoma. The collection is visualized in the retroperitoneal compartment and is displacing the right kidney anteriorly. Severe osteopenia. Chronic appearing compression deformities of multiple thoracolumbar vertebrae, including T6, T8, T9, T11, T1. The maximum vertebral height loss is visualized at T11 level with increased thoracolumbar junction kyphosis. Grade I anterolisthesis of L4 over L5 without spondylolysis. Dextroscoliosis of the thoracolumbar spine curvature. IMPRESSION: 1. Findings consistent with aspiration pneumonitis. Compared with the prior chest radiograph dated 04/08/2025, acquired at 04:52 hours, the pulmonary parenchymal findings are stable. Right PICC line and the feeding tube need to be repositioned. 2. Large right retroperitoneal hematoma extending along the iliopsoas and into the right iliacus, displacing the right kidney. 3. Several stable chronic and incidental findings are noted, as detailed in the body of the report. /[place] DICTATED BY: HENRIK FOX MD DATE: 04/08/252056 ELECTRONICALLY SIGNED BY: HENRIK FOX MD DATE: 04/08/252056 PATIENT: LORE OCONNELL MR#: [id number] : 1940 SEX: F AGE: 84 LOCATION: [facility] ORDER 1 STATUS: ADM IN REPORT#: [id number] SERVICE 0 REASON: HF ORDERING PHYSICIAN: BOYD GUERRA PAC PROCEDURE: ECHO CMP - ECHO 2-D COMPLETE APPROVED REPORT EXAM: Two-dimensional and M-mode echocardiogram with Doppler and color Doppler. INDICATION ICD: Elevated liver enzymes 2D Dimensions RVDd 5.0 cm LVEF(%) 54.9 (>50%) LA ESV INDEX (BP) 85.96 mL/m2 IVSd 0.8 (0.7-1.1cm) FS(%) 29 % LVDd 5.1 (3.8-5.6cm) LA (2D) 6.2 (1.6-4.0cm) PWd 1.2 (0.7-1.1cm) Ao Root(2D) 3.0 (2.0-3.7cm) IVSs 1.0 cm LVOT diam 2.2 (1.8-2.4cm) LVDs 3.6 (2.5-4.0cm) PWs 1.5 cm M-Mode Dimensions EPSS 0.9 cm LA (MM) 7.0 (1.6-4.0cm) Ao Root(MM) 3.4 (2.0-3.7cm) Aortic Valve AoV Vmax 1.7 m/s Ao Peak GR 11.9 mmHg LVOT Vmax 0.8 m/s AoV VTI 0.3 m Ao Mean GR 6.7 mmHg LVOT VTI 0.12 m VERONICA (VMAX) 1.64 cm2 Al P1/2T 575 ms VERONICA (VTI) 1.5 cm2 Mitral Valve MV E Vmax 81.2 cm/s DECEL Time 181 ms MV A Vmax 73.1 cm/s P 1/2 T 42 ms E/A ratio 1.1 MVA (PHT) 5.2 cm2 TDI E/E' Medial 14.3 E/E' Lateral 13.4 Medial E' Peak V 5.67 cm/s Lateral E' Peak V 6.04 cm/s Pulmonary Valve PV Vmax 1.2 m/s PI End Ximena. Jonel 142.2 cm/s PV Mean GR 2.7 mmHg PV Peak GR 5.6 mmHg Tricuspid Valve TR Vmax 2.6 m/s RAP (EST) 3 mmHg RVSP 30.0 mmHg TR Peak GR 27.0 mmHg Left Ventricle The left ventricle is normal size. There is global hypokinesis of the left ventricle. There is normal left ventricular wall thickness. LVEF is 30-35%. E/A flow is fused. Right Ventricle The right ventricle is severely dilated. Right ventricular systolic function is mildly reduced. Device lead is present in the right ventricle. Atria The left atrium is severely dilated. LASVI 86mL/m The interatrial septum is intact with no evidence for an atrial septal defect by color. Evidence of increased left atrial pressure with the atrial septum bowed to the right. The right atrium is severely dilated. Aortic Valve Aortic valve is trileaflet, mildly sclerotic and thickened but opens well. Mild aortic regurgitation is present. There is no aortic valvular stenosis. Mitral Valve The mitral valve is thickened. There is mild mitral valve regurgitation noted. There is no mitral valve stenosis. Tricuspid Valve The tricuspid valve is normal in structure. There is no tricuspid valve regurgitation noted. RVSP 30 mmHg Pulmonic Valve The pulmonary valve is normal in structure. There is trace of pulmonic valvular regurgitation. Great Vessels The aortic root is normal in size. The IVC is normal in size and collapses >50% with inspiration. Pericardium There is small pericardial effusion seen posteriorly. Other Information Quality : Adequate Rhythm : NSR Conclusion There is global hypokinesis of the left ventricle. LVEF is 30-35%. The right ventricle is severely dilated and hypokinetic. Device lead is present in the right ventricle. Left atrium is severely dilated. LASVI 86mL/m. No atrial septal defect by color. Evidence of increased left atrial pressure with the atrial septum bowed to the right. Mild aortic regurgitation. Thckened mitral valve leaflets. Mild mitral valve regurgitation. Small pericardial effusion seen posteriorly. DICTATED BY: KASH DUONG DO DATE: 04/07/25 0950 ELECTRONICALLY SIGNED BY: KASH DUONG DO DATE: 04/07/25 1245 ASSESSMENT: Acute on chronic kidney disease Anemia Retroperitoneal hemorrhage newly diagnosed via CT scan of the abdomen Acute hypoxic respiratory failure present on admission currently on mechanical ventilatory support via endotracheal tube Severe sepsis with shock Severe metabolic acidosis Hospital-acquired pneumonia Acute complicated cystitis Atrial fibrillation on chronic anticoagulation therapy Dilated cardiomyopathy ejection fraction 35-40% with moderate pulmonary hypotension Remote CVA Hx of Right lower extremity DVT History of right TKA Suspected AICD malfunction Status post AICD PLAN: Labs, diagnostic, radiologic exams reviewed and interpreted by myself and supervising physician. We have reviewed external records in detail Pending repeat UA Continue with diuretics Require close monitoring of renal function and electrolytes Order CBC, CMP, and electrolytes in am BiPAP, for respiratory distress IV pressors, as needed Continue with antibiotics Monitor blood pressure adjust medication doses as needed Avoid hypotensive episodes May use Dilaudid 0.5 mg IV every 6 hours as needed for severe pain Monitor blood sugars Strict intake, output, and daily weight should be monitored Please renally adjust medications Avoid nephrotoxic and nonsteroidal drugs Avoid contrast if possible Will continue to monitor renal function, anemia, electrolytes Treatment plan discussed with patient Questions were answered We have discussed with the other team physicians in detail about the care plan We will continue to monitor the patient closely Total critical care time spent with patient, nursing staff, critical care team over 35 minutes ATTESTATION BY PHYSICIAN I have seen and examined the patient. I reviewed the documentation, medical decision making, and treatment plan as noted by the mid-level provider above. I agree with the findings and plan of care. BREANA YUSUF MD, ELIZABETH TAKER AWAY Apr 16, 2025 15:20
[2025-04-16 16:10] LABS: APPEARANCE,URINE CLEAR (CLEAR); GLUCOSE, URINE (UA) NEGATIVE (NEGATIVE); LEUKOCYTE ESTERASE ,URINE TRACE Leu/uL (NEGATIVE); NITRATE,URINE NEGATIVE (NEGATIVE); OCCULT BLOOD,URINE MODERATE (NEGATIVE)
[2025-04-16 16:11] LABS: ADD UA MICROSCOPIC YES
--- NOTE | 2025-04-16 16:26 | CONS ---
CONSULTATION NOTE Date of Service: Apr 16, 2025 Reason for Consultation: [ Ruptured blisters ] Requesting Physician: [Dr. Velasquez ] HISTORY OF PRESENT ILLNESS: Patient is evaluated at bedside in room 218 for wound care evaluation. This is an 84-year-old female patient who has a past medical history of chronic kidney disease, chronic obstructive pulmonary disease, diabetes mellitus, atrial fibrillation, CVA and recently treated urinary tract infection. Patient recently had a right total knee arthroplasty revision on 03/21/2025 secondary to a fall and dislocation of the femur. Patient was sent from [facility] for complaints of sob and chest pain. On admission to the hospital patient was found on renal failure, with elevated liver enzymes, had a WBC of 11.5, no fever but with an elevated lactic acid of 13.3. Hemoglobin was 6.3 for which she was transfused 2 units of PRBC. REVIEW OF SYSTEMS Unable to obtain patient is intubated PAST MEDICAL HISTORY: Recent UTI. Chronic kidney disease. Atrial fibrillation. CVA. Diabetes mellitus. PAST SURGICAL HISTORY: Right total knee arthroplasty revision on 03/21/2025. Pacemaker placement. Bariatric surgery. Cholecystectomy. PAST SOCIAL HISTORY: No current use of tobacco, alcohol or any other illicit drug. FAMILY HISTORY: Noncontributory. Coded Allergies: codeine (Unverified Allergy, Unknown, HALLUCINATION, 03/16/25) PHYSICAL EXAM EYES: Anicteric. Pupils equal and reactive. HENT: No oral thrush seen, moist Oral mucosa NECK: Supple, no JVD or thyromegaly. LUNGS: Mechanical ventilator CARDIOVASCULAR: S1, S2 regular. No murmur heard. ABDOMEN: Soft, non tender, bowel sounds present, no organomegaly CENTRAL NERVOUS SYSTEM: Intubated and sedated SKIN: Generalized edema with open and closed fluid filled blisters to bilateral thighs and knees with serous drainage from open blisters LYMPHATICS: No peripheral lymphadenopathy MUSCULOSKELETAL: No joint swelling, erythema or tenderness. EXTREMITIES: No cyanosis or clubbing BACK: No deformity GENITOURINARY: No dysuria or hematuria Vital Sign (Last 24 Hours) 04/16/25 04/16/25 04/16/25 12:00 14:32 15:30 Temp 97.5 Pulse 91 Resp 24 B/P (MAP) 132/72 (92) Pulse Ox 79 O2 Delivery N/Cannula Low lpm O2 Flow Rate 5.0 FiO2 40 Intake & Output (last 24hrs) 04/15/25 04/15/25 04/16/25 15:00 23:00 07:00 Intake Total 612.4 ml 662.4 ml 778.9 ml Output Total 600 ml 325 ml Balance 612.4 ml 62.4 ml 453.9 ml LABS: Laboratory: Test 04/16/25 15:55 04/16/25 12:21 04/16/25 07:40 04/16/25 04:43 Range/Units Urine Color YELLOW YELLOW Urine Appearance CLEAR CLEAR Urine pH 5.5 5.0-8.0 Urine Specific [place] 1.015 1.001-1.031 Urine Protein TRACE H NEGATIVE mg/dL Urine Glucose (UA) NEGATIVE NEGATIVE mg/dL Urine Ketones NEGATIVE NEGATIVE mg/dL Urine Occult Blood MODERATE H NEGATIVE Urine Nitrate NEGATIVE NEGATIVE Urine Bilirubin NEGATIVE NEGATIVE mg/dL Urine Urobilinogen 0.2 0.2-1.0 mg/dL Urine Leukocyte Esterase TRACE H NEGATIVE Nicole/uL Whole Blood Glucose 152 H 70-110 MG/DL Blood Gas Specimen Type Arterial Arterial Blood pH 7.444 7.350-7.450 Arterial Blood Partial Pressure CO2 39 32-45 mmHg Arterial Blood Partial Pressure O2 97.6 83.0-108.0 mmHg Arterial Blood HCO3 26.1 21.0-28.0 mmol/L Arterial Blood Oxygen Saturation 96.8 94.0-98.0 % Arterial Blood Base Excess 1.9 -2.0-3.0 mmol/L Hemoglobin (Blood Gas) 7.9 L 12.0-16.0 g/dL Sodium (Blood Gas) 136 136-145 MMOL/L Bedside Potassium (Blood Gas) 3.4 3.4-4.5 MMOL/L Bedside Chloride (Blood Gas) 100 98-107 MMOL/L Bedside Glucose (Blood Gas) 186 H 65-95 MG/DL Bedside Ionized Calcium (Blood Gas) 1.06 L 1.15-1.33 MMOL/L Bedside Lactic Acid (Blood Gas) 3.16 *H 0.36-0.75 MMOL/L Blood Gas Temperature 37.0 35.5-37.0 CELSIUS Blood Gas Respiration Rate 12.0 min. Blood Gas Vent Mode BIPAP 12 6 ROOM AIR FiO2 75.0 % Blood Gas PEEP 6 cm H2O Blood Gas Specimen Comment RR EDDIERN White Blood Count 28.7 H 4.8-10.8 K/uL Red Blood Count 2.26 L 4.00-5.50 MIL/uL Hemoglobin 7.4 L 12.0-16.0 g/dL Hematocrit 22.2 L 36-48 % Mean Corpuscular Volume 98.2 79-99 fL Mean Corpuscular Hemoglobin 32.7 27.0-33.0 pg Mean Corpuscular Hemoglobin Concent 33.3 32.0-36.0 g/dL Red Cell Distribution Width 18.9 H 11.0-15.5 % Platelet Count 121 L 130-400 K/uL Mean Platelet Volume 12.2 H 7.5-10.5 fL Segmented Neutrophils % 97 H 40-70 % Band Neutrophils % 3 H 0-2 % Nucleated Red Blood Cells 0.2 H 0.0-0.19 % Differential Comment MANUAL DIFFERENTIAL White Cell Morphology Comment Platelet Morphology Comment SLIGHTLY DECREASED Red Blood Cell Morphology See comments Sodium Level 144 136-145 mmol/L Potassium Level 3.7 3.5-5.1 mmol/L Chloride Level 103 101-111 mmol/L Carbon Dioxide Level 26 21-32 mmol/L Blood Urea Nitrogen 111 *H 7-18 mg/dL Creatinine 3.3 H 0.5-1.0 mg/dL Glomerular Filtration Rate Calc 13 >90 mL/min Random Glucose 177 H 70-105 mg/dL Total Calcium 7.5 L 8.5-10.1 mg/dL Phosphorus Level 9.0 H 2.5-4.9 mg/dL Magnesium Level 2.00 1.80-2.40 mg/dL Total Bilirubin 1.9 H 0.2-1.0 mg/dL Aspartate Amino Transf (AST/SGOT) 40 H 10-37 U/L Alanine Aminotransferase (ALT/SGPT) 103 H 12-78 U/L Alkaline Phosphatase 163 H 50-136 U/L Total Protein 4.0 L 6.0-8.3 g/dL Albumin 1.7 L 3.5-5.0 g/dL Test 04/16/25 01:47 04/15/25 14:27 Range/Units Stool Occult Blood POSITIVE H NEGATIVE Urine Random Sodium 79 40-220 mmol/l Urine Random Potassium 31 25-125 mmol/L Urine Random Chloride 101 L 110-250 mmol/L DIAGNOSTICS / RADIOLOGY: [ ] PROBLEM LIST : Medical Problems: Unspecified open wound, Left thigh, initial encounter Unspecified open wound, Right thigh, initial encounter Unspecified open wound, right knee, initial encounter Unspecified open wound, left knee, initial encounter PLAN: Wound care Right and left thigh/knee closed/intact blisters: Roberta with betadine daily, leave open to air Wound care Right and left thigh/knee open blisters: Cleanse with normal saline, pat dry, apply bacitracin, BID and prn Keep wounds clean and dry Offloading/reposition q 2 hours Continue IV antibiotics per ID Comorbidities per primary care team Further Management per hospital course. Thank You for the consult and allowing us to participate in the care of this patient. ATTESTATION BY PHYSICIAN I have seen and examined the patient. I reviewed the documentation, medical decision making, and treatment plan as noted by the mid-level provider above. I agree with the findings and plan of care. ALEKSANDR ARDON MD, MICHELLE A [employer] Apr 16, 2025 16:26 ALEKSANDR ARDON MD Apr 26, 2025 13:14
[2025-04-16 16:30] LABS: SQUAMOUS EPITHELIAL CELL,UR Rare /HPF (0-2); YEAST,URINE BUDDING Many /HPF (None Seen)
--- NOTE | 2025-04-16 19:45 | PN ---
INFECTIOUS DISEASE PROGRESS NOTE Date of Service: Apr 16, 2025 SUBJECTIVE: This is an 84-year-old female patient who was seen and examined at bedside in room 218. Patient failed a bedside swallow test yesterday and was scheduled for a MBS study for today, patient however will be unable to do the MBS study due to requiring continuous BiPAP support today. Slight improvement on the WBC to 28.7 and remains afebrile, temperature is 98.1. Hemoglobin remains low at 7.4. We will continue on linezolid IV and Meropenem and doxycycline. PHYSICAL EXAM EYES: Anicteric. Pupils equal and reactive. HENT: No oral thrush seen, moist Oral mucosa NECK: Supple, no JVD or thyromegaly. LUNGS: On continuous BiPAP support CARDIOVASCULAR: S1, S2 regular. No murmur heard. ABDOMEN: Soft, non tender, bowel sounds present. CENTRAL NERVOUS SYSTEM: Continuous BiPAP support. SKIN: No rashes, no swelling. LYMPHATICS: No peripheral lymphadenopathy MUSCULOSKELETAL: No joint swelling, erythema or tenderness. EXTREMITIES: No cyanosis or clubbing. Generalized edema, improving. BACK: No deformity, no pressure ulcer. GENITOURINARY: No dysuria or hematuria, Mcdowell catheter. Vital Sign (Last 12 Hours) 04/16/25 04/16/25 04/16/25 04/16/25 07:45 08:00 08:00 08:00 Temp 98.1 Pulse 59 69 Resp 22 22 B/P (MAP) 109/67 (81) 76/32 (47) Pulse Ox 91 91 91 O2 Delivery BIPAP Bi-PAP+ FiO2 75 75 04/16/25 04/16/25 04/16/25 04/16/25 08:15 08:45 09:00 09:15 Pulse 95 65 65 37 Resp 20 25 26 21 B/P (MAP) 85/68 (74) 114/63 (80) 101/43 (62) 95/79 (84) Pulse Ox 91 91 91 91 04/16/25 04/16/25 04/16/25 04/16/25 09:30 09:45 10:00 10:15 Pulse 36 58 46 47 Resp 26 26 22 22 B/P (MAP) 108/54 (72) 100/69 (79) 96/79 (85) 124/91 (102) Pulse Ox 71 74 71 68 04/16/25 04/16/25 04/16/25 04/16/25 10:30 10:31 10:34 10:39 Pulse 47 88 53 Resp 25 B/P (MAP) 124/91 (102) 96/79 Pulse Ox 68 FiO2 75 04/16/25 04/16/25 04/16/25 04/16/25 10:45 10:53 11:00 11:15 Pulse 90 31 31 75 Resp 22 20 22 22 B/P (MAP) 102/74 (83) 136/53 (80) 136/53 (80) 161/94 (116) Pulse Ox 88 68 68 83 04/16/25 04/16/25 04/16/25 04/16/25 11:30 11:31 12:00 12:00 Temp 97.5 Pulse 90 84 Resp 22 B/P (MAP) 127/51 (76) 99/37 99/37 (57) Pulse Ox 70 64 O2 Delivery BIPAP FiO2 75 04/16/25 04/16/25 04/16/25 04/16/25 12:00 12:30 13:00 13:30 Pulse 38 44 46 B/P (MAP) 77/51 (60) 92/63 (73) 116/59 (78) Pulse Ox 65 65 81 O2 Delivery Bi-PAP+ FiO2 75 04/16/25 04/16/25 04/16/25 04/16/25 13:54 14:00 14:14 14:30 Pulse 92 92 91 91 Resp 20 24 20 28 B/P (MAP) 98/52 (67) 98/52 (67) 102/62 (75) 102/62 (75) Pulse Ox 84 84 73 73 04/16/25 04/16/25 04/16/25 04/16/25 14:32 14:45 15:00 15:24 Pulse 54 91 91 82 Resp 21 26 B/P (MAP) 75/44 (54) 108/49 (68) Pulse Ox 74 O2 Delivery N/Cannula Low lpm O2 Flow Rate 5.0 FiO2 40 75 04/16/25 04/16/25 04/16/25 04/16/25 15:30 16:00 16:00 16:00 Temp 97.2 Pulse 91 91 Resp 24 24 B/P (MAP) 132/72 (92) 132/72 (92) Pulse Ox 79 79 92 O2 Delivery Bi-PAP+ BIPAP FiO2 75 75 04/16/25 04/16/25 04/16/25 04/16/25 16:30 17:30 18:44 18:50 Pulse 91 91 82 Resp 24 24 27 B/P (MAP) 94/57 (69) 97/52 (67) 99/43 Pulse Ox 78 92 FiO2 75 04/16/25 04/16/25 18:52 18:53 Pulse 91 91 Resp 27 27 O2 Delivery BIPAP FiO2 75 Intake & Output (last 24hrs) 04/15/25 04/15/25 04/16/25 15:00 23:00 07:00 Intake Total 612.4 ml 662.4 ml 778.9 ml Output Total 600 ml 325 ml Balance 612.4 ml 62.4 ml 453.9 ml LABS: Laboratory: Test 04/16/25 17:29 04/16/25 15:55 04/16/25 07:40 04/16/25 04:43 Range/Units Whole Blood Glucose 161 H 70-110 MG/DL Urine Color YELLOW YELLOW Urine Appearance CLEAR CLEAR Urine pH 5.5 5.0-8.0 Urine Specific [place] 1.015 1.001-1.031 Urine Protein TRACE H NEGATIVE mg/dL Urine Glucose (UA) NEGATIVE NEGATIVE mg/dL Urine Ketones NEGATIVE NEGATIVE mg/dL Urine Occult Blood MODERATE H NEGATIVE Urine Nitrate NEGATIVE NEGATIVE Urine Bilirubin NEGATIVE NEGATIVE mg/dL Urine Urobilinogen 0.2 0.2-1.0 mg/dL Urine Leukocyte Esterase TRACE H NEGATIVE Nicole/uL Urine RBC >100 H 0-1 /HPF Urine WBC 0-1 0-1 /HPF Urine Squamous Epithelial Cells Rare 0-2 /HPF Urine Bacteria None Seen None Seen /HPF Urine Yeast Many H None Seen /HPF Blood Gas Specimen Type Arterial Arterial Blood pH 7.444 7.350-7.450 Arterial Blood Partial Pressure CO2 39 32-45 mmHg Arterial Blood Partial Pressure O2 97.6 83.0-108.0 mmHg Arterial Blood HCO3 26.1 21.0-28.0 mmol/L Arterial Blood Oxygen Saturation 96.8 94.0-98.0 % Arterial Blood Base Excess 1.9 -2.0-3.0 mmol/L Hemoglobin (Blood Gas) 7.9 L 12.0-16.0 g/dL Sodium (Blood Gas) 136 136-145 MMOL/L Bedside Potassium (Blood Gas) 3.4 3.4-4.5 MMOL/L Bedside Chloride (Blood Gas) 100 98-107 MMOL/L Bedside Glucose (Blood Gas) 186 H 65-95 MG/DL Bedside Ionized Calcium (Blood Gas) 1.06 L 1.15-1.33 MMOL/L Bedside Lactic Acid (Blood Gas) 3.16 *H 0.36-0.75 MMOL/L Blood Gas Temperature 37.0 35.5-37.0 CELSIUS Blood Gas Respiration Rate 12.0 min. Blood Gas Vent Mode BIPAP 12 6 ROOM AIR FiO2 75.0 % Blood Gas PEEP 6 cm H2O Blood Gas Specimen Comment RR EDDIERN White Blood Count 28.7 H 4.8-10.8 K/uL Red Blood Count 2.26 L 4.00-5.50 MIL/uL Hemoglobin 7.4 L 12.0-16.0 g/dL Hematocrit 22.2 L 36-48 % Mean Corpuscular Volume 98.2 79-99 fL Mean Corpuscular Hemoglobin 32.7 27.0-33.0 pg Mean Corpuscular Hemoglobin Concent 33.3 32.0-36.0 g/dL Red Cell Distribution Width 18.9 H 11.0-15.5 % Platelet Count 121 L 130-400 K/uL Mean Platelet Volume 12.2 H 7.5-10.5 fL Segmented Neutrophils % 97 H 40-70 % Band Neutrophils % 3 H 0-2 % Nucleated Red Blood Cells 0.2 H 0.0-0.19 % Differential Comment MANUAL DIFFERENTIAL White Cell Morphology Comment Platelet Morphology Comment SLIGHTLY DECREASED Red Blood Cell Morphology See comments Sodium Level 144 136-145 mmol/L Potassium Level 3.7 3.5-5.1 mmol/L Chloride Level 103 101-111 mmol/L Carbon Dioxide Level 26 21-32 mmol/L Blood Urea Nitrogen 111 *H 7-18 mg/dL Creatinine 3.3 H 0.5-1.0 mg/dL Glomerular Filtration Rate Calc 13 >90 mL/min Random Glucose 177 H 70-105 mg/dL Total Calcium 7.5 L 8.5-10.1 mg/dL Phosphorus Level 9.0 H 2.5-4.9 mg/dL Magnesium Level 2.00 1.80-2.40 mg/dL Total Bilirubin 1.9 H 0.2-1.0 mg/dL Aspartate Amino Transf (AST/SGOT) 40 H 10-37 U/L Alanine Aminotransferase (ALT/SGPT) 103 H 12-78 U/L Alkaline Phosphatase 163 H 50-136 U/L Total Protein 4.0 L 6.0-8.3 g/dL Albumin 1.7 L 3.5-5.0 g/dL Test 04/16/25 01:47 04/15/25 14:27 Range/Units Stool Occult Blood POSITIVE H NEGATIVE Urine Random Sodium 79 40-220 mmol/l Urine Random Potassium 31 25-125 mmol/L Urine Random Chloride 101 L 110-250 mmol/L ASSESSMENT: Hypoxic respiratory failure, requiring intubation, s/p extubated, now on continuous BiPAP support Healthcare associated Pneumonia. Septic shock. Anemia, POA requiring blood transfusion. Acute on chronic renal failure. Heart failure. Elevated liver enzymes, improved. Morbid obesity. Diabetes mellitus. PLAN: Continue on linezolid IV. Continue on Meropenem. Continues on Doxycycline. Continue GI prophylaxis. Continue oxygen support. Continue diuretics. Continue critical care support. Pending a MBS study. This case was reviewed and discussed with my supervising physician Dr. Rawls and the above assessment and plan was formulated and agreed upon. ATTESTATION BY PHYSICIAN I have seen and examined the patient. I reviewed the documentation, medical decision making, and treatment plan as noted by the mid-level provider above. I agree with the findings and plan of care. CASSY RAWLS MD, MIRTA L [facility] Apr 16, 2025 19:45
[2025-04-17] VITALS (82 sets, daily range): BP systolic 83–172; BP diastolic 32–119; PULSE 76–92; RESP 21–34; TEMP 95.5–98.9; O2SAT 90–100
[2025-04-17 03:54] LABS: ABG BASE EXCESS 0.1 mmol/L (-2.0-3.0); ABG HCO3 23.1 mmol/L (21.0-28.0); ABG OXYGEN SATURATION 98.1 % (94.0-98.0); ABG PCO2 30 mmHg (32-45); ABG PH 7.498 (7.350-7.450); CARBON MONOXIDE 0.6 % (0.5-1.5); PO2, ARTERIAL BG 123.9 mmHg (83.0-108.0); TEMPERATURE, CELSIUS BG 37.0 CELSIUS (35.5-37.0); VENT MODE, BG BIPAP 12,6 (ROOM AIR)
[2025-04-17 06:05] LABS: ASPARTATE AMINOTRANSFERASE 35.0 U/L (10-37); CREATININE 3.5 mg/dL (0.5-1.0); GLOMERULAR FILTR. RATE CALC 12.0 mL/min (>90); GLUCOSE,RANDOM 171.0 mg/dL (70-105); PHOSPHORUS 9.3 mg/dL (2.5-4.9); SODIUM SERUM 141.0 mmol/L (136-145); TOTAL PROTEIN, SERUM 3.7 g/dL (6.0-8.3)
[2025-04-17 06:11] LABS: UREA NITROGEN, BLOOD 118.0 mg/dL (7-18)
[2025-04-17 06:58] LABS: IMMATURE GRANULOCYTE ABSOLUTE 0.16 K/uL (0-1); NUCLEATED RED BLOOD CELLS 0.6 % (0.0-0.19); PLATELET COUNT (AUTO) 111 K/uL (130-400); RED BLOOD CELL COUNT(AUTO) 2.19 MIL/uL (4.00-5.50); RED CELL DISTRIBUTION WIDTH 19.1 % (11.0-15.5); WHITE BLOOD COUNT (AUTO) 20.7 K/uL (4.8-10.8)
--- NOTE | 2025-04-17 07:39 | PN ---
SUBJECTIVE: The patient was admitted for assessment and treatment of respiratory failure with sepsis, lactic acid greater than 6. The patient was intubated and was started on IV antibiotics. The patient was [facility] from a [facility] from where she was diagnosed with right DVT after right lower extremity edema developed. The patient also had recent left knee hardware replacement secondary to an accidental fall. She was recently diagnosed as well with dilated cardiomyopathy with congestive heart failure, systolic with ejection fraction of 35%. The patient has atrial fibrillation, chronic kidney disease, chronic anemia, hypertension. The patient is intolerant to oral anticoagulants including warfarin, Eliquis, Xarelto, and Pradaxa due to a previous reaction with them similar to protein S and C deficiency. Being followed by Dr. Diaz. OBJECTIVE: GENERAL: The patient has been successfully extubated. She is on BiPAP at this time. Awake, alert and oriented in person in bed. VITAL SIGNS: Vital signs in the chart. HEENT: Normocephalic, atraumatic. LUNGS: Decreased breath sounds bilateral. HEART: S1, S2 are distant. ABDOMEN: Abdomen is soft and nontender. EXTREMITIES: No clubbing or cyanosis. There is no edema. ASSESSMENT AND PLAN: * Respiratory failure with hypoxemia. Continue with BiPAP. * Atrial fibrillation, rate controlled. * Congestive heart failure with recent placement of a biventricular pacemaker and AICD following recommendation by Cardiology. * Anemia, chronic, stable. Transfusion on a p.r.n. basis. * Septic shock. Good response to IV fluids as well as antibiotics. * Acute on chronic kidney disease. The patient might benefit from an infusion with either dolbutamine or milrinone. * Right retroperitoneal hematoma. Continue to monitor. * Anticoagulation will be placed on hold. * Type 2 diabetes. Continue with ICU protocol. * Follow up in a.m. with labs. DOS: 04/16/2025 TID: [id number] RECEIPT: [id number] [facility]
--- NOTE | 2025-04-17 11:05 | CONS ---
LAWRENCE SO Sarah 04/17/25 1105: CONSULT REFERRING PHYSICIAN: Critical Care Team REASON FOR CONSULT: Evaluation and management of anemia in the setting of septic shock, CKD, retroperitoneal hematoma, and intolerance to anticoagulation HISTORY HPI: The patient is an 84-year-old female with a significant medical history of recurrent UTIs, chronic anemia, CKD, atrial fibrillation, dilated cardiomyopathy (EF 35% by echo; prior stress test EF 60%), biventricular pacemaker/AICD, and tolerance to all oral anticoagulants (warfarin, apixaban, rivaroxaban, dabigatran), remote CVA, and recent left knee replacement revision following a fall. She resides in a longterm facility. She presented to the ED with shortness of breaths and chest pain, progressing to acute hypoxic respiratory failure requiring intubation. Workup revealed septic shock with lactic acid greater than 6, suspected urinary source, and Sabrina positive urine. IV fluids, vasopressors (Levophed), and broad-spectrum antibiotics (doxycycline plus linezolid) were started. She was noted to be anemic and required PRBC transfusion. A right retroperitoneal hematoma was later identified; anticoagulation is currently held. The patient is now extubated on on BiPAP 04/20 FiO2 75%, hemodynamically marginal, but improved overall. She remains in rate controlled AFib. Hematology-Oncology is consulted for evaluation of anemia management in the setting of sepsis, CKD, blood loss, and recent hematoma. 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) Dilated cardiomyopathy, EF 35% Remote CVA Recurrent urinary tract infections CHF with recent biventricular pacemaker/AICD Right retroperitoneal hematoma Recent left knee revision (hardware replacement after fall) PSH: As mentioned above SH: Noncontributory FH: Noncontributory ALLERGIES: Coded Allergies: codeine (Unverified Allergy, Unknown, HALLUCINATION, 03/16/25) CURRENT MEDS: Current Medications Medications (Trade) Dose Ordered Sig/Asif Route PRN Reason Start Time Stop Time Status Last Admin Metolazone (zarOXOlyn) 5 mg [id number] PO 04/17/25 06:30 05/17/25 06:29 04/17/25 08:03 REVIEW OF SYSTEMS CONSTITUTIONAL: FEVER HEENT: JAUNDICE; No JAUNDICE; SORE THROAT; No SORE THROAT; SINUS PRESSURE; No SINUS PRESSURE, No VISION CHANGES RESPIRATORY: SHORTNESS OF BREATH CARDIOVASCULAR: PALPATIONS; No PALPATIONS, No DYSPNEA ON EXERTION, No SYNCOPE GASTROINTESTINAL: No NAUSEA, No VOMITING, No DIARRHEA, No DYSPHAGIA, No CONSTIPATION, No ABDOMINAL PAIN, No HEMATEMESIS, No HEMATOCHEZIA, No MELENA GENITOURINARY: No DYSURIA, No HEMATURIA HEMATOLOGIC/LYMPHATIC: No EASY BRUISING, No CERVICAL ADENOPATHY, No AXILLARY ADENOPATHY, No INGUINAL ADENOPATHY MUSCULOSKELETAL: BONE PAIN; No BONE PAIN, No MASS; NORMAL RANGE OF MOTION; No NORMAL RANGE OF MOTION SKIN/BREASTS: BREAST MASS; No BREAST MASS, No NIPPLE INVERSION, No RASH NEUROLOGICAL: No WEAKNESS-EXTREMETIES, No DIPLOPIA, No NUMBNESS, No TINGLING PSYCHOLOGICAL: No SUICIDAL IDEATION PHYSICAL EXAM VITALS: Vital Signs Date Time Temp Pulse Resp B/P (MAP) Pulse Ox O2 Delivery O2 Flow Rate FiO2 04/17/25 09:30 91 28 92/44 (60) 100 04/17/25 08:00 99.0 BIPAP 65 04/16/25 14:32 5.0 Unable to perform physical exam DIAGNOSTIC STUDIES [address] [address] IMAGING REPORT Signed PATIENT: LORE OCONNELL MR#: [id number] : 1940 SEX: F AGE: 84 LOCATION: [facility] ORDER STATUS: ADM IN REPORT#: [id number] SERVICE 0732 REASON: SOB ORDERING PHYSICIAN: BOYD GUERRA PAC PROCEDURE: CXR1VW - CHEST 1VW EXAM: CR Chest, single view. CLINICAL HISTORY: Shortness of breath. COMPARISON: Prior chest radiograph dated April 15, 2025 FINDINGS: Right-sided central venous catheter with tip in the superior vena cava. Mild cardiomegaly with bilateral pulmonary congestion. Mild bilateral pleural effusion is left more than right with adjacent lung atelectasis. Patchy areas of groundglass opacities in the right parahilar region are probable pulmonary edema. A battery pack is in the left anterior chest wall with pacemaker wires in the right atrium and ventricles. No acute osseous abnormality. Degenerative changes in the mid and lower thoracic spine. IMPRESSION: Right-sided central venous catheter with tip in the superior vena cava. Mild cardiomegaly with bilateral pulmonary congestion. Mild bilateral pleural effusion is left more than right with adjacent lung atelectasis. Patchy areas of groundglass opacities in the right parahilar region are probable pulmonary edema. A battery pack is in the left anterior chest wall with pacemaker wires in the right atrium and ventricles. Compared to the prior study, there is an interval progression of bilateral pleural effusion development of groundglass opacities in the right parahilar region. /[place] DICTATED BY: SHAKIR GARCIA Jr., MD DATE: 04/16/25904 ELECTRONICALLY SIGNED BY: SHAKIR GARCIA Jr., MD DATE: 04/16/25904 [place] [id number] IMAGING REPORT Signed PATIENT: LORE OCONNELL MR#: [id number] : 1940 SEX: F AGE: 84 LOCATION: [facility] ORDER 1137 STATUS: ADM IN REPORT#: [id number] SERVICE 1134 REASON: renal failure ORDERING PHYSICIAN: SAMIA HART MD PROCEDURE: RENAL - US RENAL SONOGRAM STUDY: ULTRASOUND OF THE KIDNEYS AND URINARY BLADDER CLINICAL INFORMATION: Renal failure. TECHNIQUE: Real-time grayscale ultrasound of both kidneys and the urinary bladder was performed using a curvilinear transducer, with color Doppler imaging as needed. COMPARISON: None provided. FINDINGS: RIGHT KIDNEY: The right kidney measures approximately 8.2 ??? 3.3 ??? 3.3 cm and appears small in size. Corticomedullary differentiation is preserved. There is minimal right hydronephrosis. No discrete renal mass, shadowing calculus, or perinephric collection is identified. LEFT KIDNEY: The left kidney is not visualized on this examination. URINARY BLADDER: Urinary bladder is decompressed with an indwelling Mcdowell catheter in place. Bladder wall thickness measures approximately 2 mm, within normal limits for the degree of distention. No intraluminal mass or calculus is identified. IMPRESSION: * Small right kidney with minimal right hydronephrosis. In the setting of renal failure, correlation with renal function tests and cross-sectional imaging (CT or MRI urography) is recommended to further evaluate for chronic parenchymal disease or subtle distal obstruction. * Decompressed urinary bladder with Mcdowell catheter in situ and normal bladder wall thickness. No sonographic evidence of intravesical mass or calculus. /[place] DICTATED BY: HENRIK FOX MD DATE: 04/11/252330 ELECTRONICALLY SIGNED BY: HENRIK FOX MD DATE: 04/11/252330 [place] [address] [address] IMAGING REPORT Signed PATIENT: LORE OCONNELL MR#: [id number] : 1940 SEX: F AGE: 84 LOCATION: 2B ORDER 9 STATUS: ADM IN REPORT#: [id number] SERVICE 9 REASON: OGT PLACEMENT ORDERING PHYSICIAN: ZENOBIA PEREZ MD PROCEDURE: ABD 1VW - ABD 1VW EXAM: CR Abdomen, 2 View. CLINICAL HISTORY: OGT PLACEMENT COMPARISON: None provided. FINDINGS: BOWEL: The OGT tube was noted with its distal tip in the stomach. The bowel gas pattern is within normal limits. PERITONEUM/SOFT TISSUES: No free air evident. No pathologic appearing calcification. BONES: No acute osseous abnormality. IMPRESSION: The bowel gas pattern is within normal limits. /[place] DICTATED BY: SHAKIR GARCIA Jr., MD DATE: 04/09/25732 ELECTRONICALLY SIGNED BY: SHAKIR GARCIA Jr., MD DATE: 04/09/25732 [place] [address] [address] IMAGING REPORT Signed PATIENT: LORE OCONNELL MR#: [id number] : 1940 SEX: F AGE: 84 LOCATION: [facility] ORDER 1117 STATUS: ADM IN REPORT#: [id number] SERVICE 15 REASON: bilateral edema ORDERING PHYSICIAN: CASSY BATES MD PROCEDURE: VENOUS CLAUDIA - US VENOUS DOPPLER BILATERAL EXAM: US for Deep Venous Thrombosis, bilateral Lower Extremity. CLINICAL HISTORY: Leg Pain and Swelling TECHNIQUE: Real-time ultrasound scan of the veins of the bilateral lower extremity with color Doppler flow, spectral waveform analysis and compression. COMPARISON: None provided. FINDINGS: DEEP VEINS: The common femoral, superficial femoral, and popliteal veins are echolucent and compressible. There is normal color Doppler flow throughout. The visualized calf veins appear patent. SOFT TISSUES: No popliteal fossa cyst or other abnormalities. IMPRESSION: No deep venous thrombosis evident on bilateral lower extremity examination. /[place] DICTATED BY: ALEKSANDAR PARIS MD DATE: 04/08/251354 ELECTRONICALLY SIGNED BY: ALEKSANDAR PARIS MD DATE: 04/08/251354 [place] [address] IMAGING REPORT Signed PATIENT: LORE OCONNELL MR#: [id number] : 1940 SEX: F AGE: 84 LOCATION: [facility] ORDER 0837 STATUS: ADM IN [facility] REPORT#: [id number] SERVICE 0813 REASON: Right knee ORDERING PHYSICIAN: ZENOBIA PEREZ MD PROCEDURE: LOW EXT WO - CT LOW EXT W/O CONTRAST STUDY CT Right Knee Without IV ContrastHISTORY Right knee pain and swelling.TECHNIQUE Axial CT images of the right knee obtained without intravenous contrast. Multiplanar reformations reviewed. CT dose???length product: 524 mGy???cm.COMPARISON None provided.FINDINGS Bones Beam-hardening artifact from knee arthroplasty hardware limits fine osseous evaluation. At the distal femoral metaphysis, cortical rarefaction with interrupted erosions along the posterior cortex at the prosthesis???bone interface raises concern for particle disease???related osteolysis versus prosthetic joint infection???associated endosteal erosion. No acute fracture is identified. Joints Large knee joint effusion with suprapatellar extension. A medial suprapatellar/prepatellar fluid collection tracks toward the skin surface, suspicious for extra-articular extension or sinus-tract???forming collection. Arthroplasty components in expected position; no gross dislocation. Soft Tissues Extensive myofascial edema and cellulitis involving the distal thigh and proximal leg. No discrete drainable intramuscular or intercompartmental abscess in the visualized field. Multiple punctate radiodense subcutaneous foci in the anterior proximal leg likely represent post-surgical debris or calcified granulomas.IMPRESSION : * Extensive distal thigh/proximal leg myofascial edema and cellulitis without a discrete drainable collection, with a large knee effusion and a medial suprapatellar/prepatellar fluid collection tracking superficially suspicious for extra-articular or sinus-tract???forming extension. * Cortical rarefaction with interrupted erosions at the distal femoral metaphysis along the prosthesis???bone interface concerning for osteolysis versus prosthetic joint infection???associated endosteal erosion; no acute fracture, evaluation limited by hardware artifact. /[place] DICTATED BY: HENRIK FOX MD DATE: 04/09/251635 ELECTRONICALLY SIGNED BY: HENRIK FOX MD DATE: 04/09/251635 [place] [address] IMAGING REPORT Signed PATIENT: LORE OCONNELL MR#: [id number] : 1940 SEX: F AGE: 84 LOCATION: [facility] ORDER 1 STATUS: ADM IN REPORT#: [id number] SERVICE 0 REASON: HF ORDERING PHYSICIAN: BOYD GUERRA PAC PROCEDURE: ECHO CMP - ECHO 2-D COMPLETE APPROVED REPORT EXAM: Two-dimensional and M-mode echocardiogram with Doppler and color Doppler. INDICATION ICD: Elevated liver enzymes 2D Dimensions RVDd 5.0 cm LVEF(%) 54.9 (>50%) LA ESV INDEX (BP) 85.96 mL/m2 IVSd 0.8 (0.7-1.1cm) FS(%) 29 % LVDd 5.1 (3.8-5.6cm) LA (2D) 6.2 (1.6-4.0cm) PWd 1.2 (0.7-1.1cm) Ao Root(2D) 3.0 (2.0-3.7cm) IVSs 1.0 cm LVOT diam 2.2 (1.8-2.4cm) LVDs 3.6 (2.5-4.0cm) PWs 1.5 cm M-Mode Dimensions EPSS 0.9 cm LA (MM) 7.0 (1.6-4.0cm) Ao Root(MM) 3.4 (2.0-3.7cm) Aortic Valve AoV Vmax 1.7 m/s Ao Peak GR 11.9 mmHg LVOT Vmax 0.8 m/s AoV VTI 0.3 m Ao Mean GR 6.7 mmHg LVOT VTI 0.12 m VERONICA (VMAX) 1.64 cm2 Al P1/2T 575 ms VERONICA (VTI) 1.5 cm2 Mitral Valve MV E Vmax 81.2 cm/s DECEL Time 181 ms MV A Vmax 73.1 cm/s P 1/2 T 42 ms E/A ratio 1.1 MVA (PHT) 5.2 cm2 TDI E/E' Medial 14.3 E/E' Lateral 13.4 Medial E' Peak V 5.67 cm/s Lateral E' Peak V 6.04 cm/s Pulmonary Valve PV Vmax 1.2 m/s PI End Ximena. Jonel 142.2 cm/s PV Mean GR 2.7 mmHg PV Peak GR 5.6 mmHg Tricuspid Valve TR Vmax 2.6 m/s RAP (EST) 3 mmHg RVSP 30.0 mmHg TR Peak GR 27.0 mmHg Left Ventricle The left ventricle is normal size. There is global hypokinesis of the left ventricle. There is normal left ventricular wall thickness. LVEF is 30-35%. E/A flow is fused. Right Ventricle The right ventricle is severely dilated. Right ventricular systolic function is mildly reduced. Device lead is present in the right ventricle. Atria The left atrium is severely dilated. LASVI 86mL/m The interatrial septum is intact with no evidence for an atrial septal defect by color. Evidence of increased left atrial pressure with the atrial septum bowed to the right. The right atrium is severely dilated. Aortic Valve Aortic valve is trileaflet, mildly sclerotic and thickened but opens well. Mild aortic regurgitation is present. There is no aortic valvular stenosis. Mitral Valve The mitral valve is thickened. There is mild mitral valve regurgitation noted. There is no mitral valve stenosis. Tricuspid Valve The tricuspid valve is normal in structure. There is no tricuspid valve regu rgitation noted. RVSP 30 mmHg Pulmonic Valve The pulmonary valve is normal in structure. There is trace of pulmonic valvular regurgitation. Great Vessels The aortic root is normal in size. The IVC is normal in size and collapses >50% with inspiration. Pericardium There is small pericardial effusion seen posteriorly. Other Information Quality : Adequate Rhythm : NSR Conclusion There is global hypokinesis of the left ventricle. LVEF is 30-35%. The right ventricle is severely dilated and hypokinetic. Device lead is present in the right ventricle. Left atrium is severely dilated. LASVI 86mL/m. No atrial septal defect by color. Evidence of increased left atrial pressure with the atrial septum bowed to the right. Mild aortic regurgitation. Thckened mitral valve leaflets. Mild mitral valve regurgitation. Small pericardial effusion seen posteriorly. DICTATED BY: KASH DUONG DO DATE: 04/07/25 0997 ELECTRONICALLY SIGNED BY: KASH DUONG DO DATE: 04/07/25 1240 IMPRESSION Chronic anemia Sepsis with lactic acidosis Retroperitoneal hematoma CKD with acute on chronic renal failure Thrombocytopenia AFib with intolerance to all oral anticoagulants Acute hypoxic respiratory failure PLAN 1. Anemia Peripheral smear ordered Continue transfusion of PRBC as needed to maintain hemoglobin > 7 g/dL. (>8 g/dL if cardiology prefers to 2 EF 35%) Recheck CBC every 6-8 hours while and stable Send anemia workup when patient stabilizes Iron panel, ferritin B12, folate Reticulocyte count Avoid anticoagulation due to active bleeding/hematoma Consider epoetin mac only after sepsis resolved not recommended acutely 2. Monitor retroperitoneal hematoma Strict hemoglobin monitoring Serial abdominal exams Hold all anticoagulation Avoid DVT prophylaxis with heparin for now. Use SCDs 3. Thrombocytopenia Monitor platelet count daily No transfusion unless platelets less [place] [address] or active bleeding increases 4. CKD related anemia Renal dosing of medications Avoid nephrotoxins Continue medical management per Nephrology 5. Sepsis/UTI/Sabrina Continue medical management per Infectious Disease recommendation 6. AFib/cardiology considerations Anticoagulation contraindicated currently given hematoma and positive stool occult blood 7. Supportive care Maintain map greater than 65 Continue medical management per ICU in critical Care team TATUM GILLETTE MD 04/17/25 1346: PLAN Peripheral blood smear was done which showed patient to have microcytic hypochromic red blood cell consistent with iron deficiency anemia. I have there was a clumping of the platelet. Manual platelet count within normal. There was increased bands, neutrophil with vacuolation consistent with infection. There was frequent PelgerHuet cell consistent with possible baseline MDS Will check for CBC tomorrow. If CBC below 7 this patient will receive blood product transfusion. We will check INR also. If INR is more than 1.5 this patient to receive fresh frozen plasma LAWRENCE SO Apr 17, 2025 11:05 TATUM GILLETTE MD Apr 17, 2025 13:46
--- NOTE | 2025-04-17 11:23 | PN ---
[facility] PROGRESS NOTE Date Patient Seen: Apr 17, 2025 Time of Visit: 11:14 Supervising Physician: [Dr. Barnett ] Primary Care Physician: SAMIA MENDOZA MD Outpatient Specialists: [ ] Inpatient Consults: BIS PROBLEM LIST: Large right retroperitoneal hematoma displacing the right kidney, present on admission Acute hypoxic respiratory failure present on admission Severe sepsis with shock Severe metabolic acidosis Hospital-acquired pneumonia Acute complicated cystitis Severe anemia, requiring transfusion Acute on chronic kidney disease Atrial fibrillation on chronic anticoagulation therapy Dilated cardiomyopathy ejection fraction 35-40% with moderate pulmonary hypotension Remote CVA Hx of Right lower extremity DVT Suspected AICD malfunction Status post AICD INTERVAL HISTORY: Patient was seen and examined family at bedside Labs and imagining reviewed. Patient is sitting comfortably in bed, continues to be an edematous Patient has had minimal output 500ml in last 24 hours Continues on the Dobutrex, Lasix, and metolazone Patient on BiPAP, we will try to transitioned to high-flow so we can resume her diet White count down 20.7 from 28.7 Hemoglobin 7.0 from 7.4 Plan: Continue with supplemental O2, currently on BiPAP Plan to transition to high-flow and resume Follow nephrology Trending hemoglobin transfuse 1 unit of PRBCs if Hemoglobin drops <[address] Diaz he has been following patient Continue on Merrem, doxy and Zyvox per ID. Total critical care time spent 40 minutes, this excludes any procedures performed or any time spent in educational or teaching. REVIEW OF SYSTEMS: On mechanical ventilator support, non verbal. But she is able to nod yes and no and she is awake and following commands. PHYSICAL EXAM: GENERAL: Patient awake alert and following commands HEENT: , EOMI, Sclera non icteric, moist mucosa NECK: Supple, no JVD, trachea midline LUNGS: Decreased breath sounds, no wheezing. HEART: Irregular rate. Normal S1 and S2, without murmurs ABD: Abdomen soft, nontender. Bowel sounds present large right retroperitoneal hematoma EXT: 3+ edema to the upper extremities bilaterally with some weeping, 4+ edema to the lower extremities bilaterally. NEURO: A&O times1 Vital Signs (last 8hr) Date Time Temp Pulse Resp B/P (MAP) Pulse Ox O2 Delivery O2 Flow Rate FiO2 04/17/25 09:30 91 28 92/44 (60) 100 04/17/25 09:00 91 30 107/48 (67) 100 04/17/25 08:30 91 29 89/43 (58) 100 04/17/25 08:27 90 23 04/17/25 08:00 99.0 BIPAP 65 04/17/25 08:00 91 31 98/43 (61) 100 04/17/25 07:30 91 29 101/50 (67) 99 04/17/25 06:24 91 29 172/86 (114) 99 04/17/25 06:20 90 28 65 04/17/25 06:07 91 27 126/60 (82) 100 04/17/25 05:53 91 30 93/49 (64) 100 04/17/25 05:37 91 29 109/46 (67) 100 04/17/25 05:24 91 29 98/46 (63) 99 04/17/25 05:07 91 29 134/55 (81) 99 04/17/25 04:52 91 32 104/54 (71) 99 04/17/25 04:37 91 26 129/91 (104) 99 04/17/25 04:24 91 27 94/46 (62) 100 04/17/25 04:15 65 04/17/25 04:07 91 28 142/119 (127) 99 04/17/25 04:00 98 Bi-PAP+ 65 04/17/25 03:53 91 22 113/48 (69) 98 04/17/25 03:52 95.5 04/17/25 03:22 91 28 148/107 (121) 100 LABS: Hematology Labs: Test 04/17/25 06:38 04/16/25 04:43 Range/Units White Blood Count 20.7 H 4.8-10.8 K/uL Red Blood Count 2.19 L 4.00-5.50 MIL/uL Hemoglobin 7.0 *L 12.0-16.0 g/dL Hematocrit 21.4 L 36-48 % Mean Corpuscular Volume 97.7 79-99 fL Mean Corpuscular Hemoglobin 32.0 27.0-33.0 pg Mean Corpuscular Hemoglobin Concent 32.7 32.0-36.0 g/dL Red Cell Distribution Width 19.1 H 11.0-15.5 % Platelet Count 111 L 130-400 K/uL Mean Platelet Volume 11.9 H 7.5-10.5 fL Immature Granulocyte % (Auto) 0.8 0-1 % Neutrophils (%) (Auto) 96.4 H 40.0-77.0 % Lymphocytes (%) (Auto) 0.8 L 21.0-51.0 % Monocytes (%) (Auto) 1.5 L 3.0-13.0 % Eosinophils (%) (Auto) 0.3 0.0-8.0 % Basophils (%) (Auto) 0.2 0.0-5.0 % Neutrophils # (Auto) 20.0 H 1.8-7.7 K/uL Lymphocytes # (Auto) 0.2 L 1.0-4.8 K/uL Monocytes # (Auto) 0.3 0.1-1.0 K/uL Eosinophils # (Auto) 0.07 0.00-0.70 K/uL Basophils # (Auto) 0.04 0.00-0.20 K/uL Absolute Immature Granulocyte (auto 0.16 0-1 K/uL Nucleated Red Blood Cells 0.6 H 0.0-0.19 % Segmented Neutrophils % 97 H 40-70 % Band Neutrophils % 3 H 0-2 % Differential Comment MANUAL DIFFERENTIAL White Cell Morphology Comment Platelet Morphology Comment SLIGHTLY DECREASED Red Blood Cell Morphology See comments Chemistry Labs: Test 04/17/25 05:20 04/16/25 17:29 Range/Units Sodium Level 141 136-145 mmol/L Potassium Level 3.6 3.5-5.1 mmol/L Chloride Level 99 L 101-111 mmol/L Carbon Dioxide Level 24 21-32 mmol/L Blood Urea Nitrogen 118 *H 7-18 mg/dL Creatinine 3.5 H 0.5-1.0 mg/dL Glomerular Filtration Rate Calc 12 >90 mL/min Random Glucose 171 H 70-105 mg/dL Total Calcium 7.9 L 8.5-10.1 mg/dL Phosphorus Level 9.3 H 2.5-4.9 mg/dL Magnesium Level 1.90 1.80-2.40 mg/dL Total Bilirubin 1.9 H 0.2-1.0 mg/dL Aspartate Amino Transf (AST/SGOT) 35 10-37 U/L Alanine Aminotransferase (ALT/SGPT) 84 H 12-78 U/L Alkaline Phosphatase 142 H 50-136 U/L B-Type Natriuretic Peptide 45 0-100 pg/mL Total Protein 3.7 L 6.0-8.3 g/dL Albumin 1.6 L 3.5-5.0 g/dL Whole Blood Glucose 161 H 70-110 MG/DL DIAGNOSTICS / RADIOLOGY RESULTS: [ ] PLAN NEURO: Minimize central acting medications as possible. Fall Precautions. Well lighted room through the day and minimize interruptions through the night to prevent acute delirium. PULMONARY: On mechanical ventilator support via endotracheal tube at this time CARDIOVASCULAR: Follow hemodynamics. Titrate vasopressor to keep MAP >65 or systolic blood pressure >95mmHg DIPS: [ Levophed ] GI & NUTRITION: Continue nutritional support Aspirations precautions Prokinetic agents and laxatives as needed KIDNEYS & ELECTROLYTES: Strict monitoring of intake and output Daily weights Avoid nephrotoxic agents Monitor electrolytes and replace as needed Goal urine output of 30mL/hr or 0.5mL/kg/hr ENDOCRINE: Maintain blood glucose between 100-180 at all times. Insulin sliding scale for blood glucose management INFECTIOUS DISEASE: Trend temperature. Pittman-culture if febrile. Micro: [Pending results ] Antibiotics: [ As per I and D] HEMATOLOGY & COAGULATION: Monitor H&H. Keep Hgb > 7 Transfuse 1 unit of PRBC for Hgb < 7 Transfuse 1 pack of platelets of platelets < 20, 000 Watch for any signs and symptoms of bleeding SKIN: Pressure ulcer prevention per facility protocol Rehab: PT/OT Prophylaxis: GI: [ Protonix 40 mg IV b.i.d.] DVT: [SCDs to the lower extremities ] Code Status: Full Resuscitation Disposition: [Continue medical management in the ICU ] PACHECO TOBAR AGACNP Apr 17, 2025 11:23
--- NOTE | 2025-04-17 15:11 | PN ---
NEPHROLOGY PROGRESS NOTE Date/Time Patient Seen: Apr 17, 2025 SUBJECTIVE: This is an 84-year-old female who was sent to the Emergency Room from the [facility] and the patient has shortness of breath and chest pain. CT scan showed Large right retroperitoneal hematoma extending along the iliopsoas and into the right iliacus, displacing the right kidney. Continues to require vasopressors to maintain blood pressure She has been in the hospital for several days and was noted with worsening renal failure She was noted to have elevated BUN and creatinine, She has had acute on chronic renal dysfunction while in the hospital Creatinine has been elevated She continues on Dobutamine, Lasix drip, and metolazone5 mg p.o. b.i.d. She has been extubated, continues on BiPAP The patient has been seen for all of the above Renal function continues to worsen Electrolytes are noted UA was noted She was seen in the ICU Family at the bedside Condition is critical and guarded REVIEW OF SYSTEMS: GENERAL: Negative for any nausea, vomiting, fevers, chills, or weight loss. NEUROLOGIC: Negative for any blurry vision, blind spots, double vision, facial asymmetry, dysphagia, dysarthria, hemiparesis, hemisensory deficits, vertigo, ataxia. HEENT: Negative for any head trauma, neck trauma, neck stiffness, photophobia, phonophobia, sinusitis, rhinitis. CARDIAC: Negative for any chest pain, dyspnea on exertion, paroxysmal nocturnal dyspnea, peripheral edema. PULMONARY: Negative for any shortness of breath, wheezing, COPD, or TB exposure. GASTROINTESTINAL: Negative for any abdominal pain, nausea, vomiting, bright red blood per rectum, melena. GENITOURINARY: Negative for any dysuria, hematuria, incontinence. INTEGUMENTARY: Negative for any rashes, cuts, insect bites. RHEUMATOLOGIC: Negative for any joint pains, photosensitive rashes, history of vasculitis or kidney problems. HEMATOLOGIC: Negative for any abnormal bruising, frequent infections or bleeding. Vital Signs (last 8hr) Date Time Temp Pulse Resp B/P (MAP) Pulse Ox O2 Delivery O2 Flow Rate FiO2 04/17/25 14:21 96/49 04/17/25 14:15 91 30 98/48 (65) 100 04/17/25 14:14 91 29 65 04/17/25 13:45 91 32 96/49 (65) 99 04/17/25 13:21 104/50 04/17/25 13:15 91 32 89/49 (62) 99 04/17/25 12:45 91 34 104/50 (68) 99 04/17/25 12:15 91 29 102/48 (66) 99 04/17/25 12:00 91 29 102/48 (66) 99 04/17/25 12:00 98 Bi-PAP+ 65 04/17/25 12:00 97.5 BIPAP 65 04/17/25 11:15 91 27 135/56 (82) 100 04/17/25 11:12 91 27 65 04/17/25 11:09 91 23 04/17/25 11:00 91 32 93/52 (66) 100 04/17/25 10:45 91 29 85/46 (59) 100 04/17/25 10:30 91 29 101/49 (66) 100 04/17/25 10:15 91 29 101/49 (66) 100 04/17/25 10:00 91 28 94/47 (63) 100 04/17/25 09:45 91 29 101/49 (66) 100 04/17/25 09:30 91 28 92/44 (60) 100 04/17/25 09:00 91 30 107/48 (67) 100 04/17/25 08:30 91 29 89/43 (58) 100 04/17/25 08:00 99.0 BIPAP 65 04/17/25 08:00 99 Bi-PAP+ 65 04/17/25 08:00 91 31 98/43 (61) 100 04/17/25 07:30 91 29 101/50 (67) 99 PHYSICAL EXAM: GENERAL: Pale, acutely ill female, lethargic, no acute distress. Well-nourished. EYES: EOMI. Anicteric. HENT: Moist mucous membranes. No scleral icterus. No cervical lymphadenopathy. LUNGS: Clear to auscultation bilaterally. No accessory muscle use. CARDIOVASCULAR: Regular rate and rhythm. No murmur. No JVD. ABDOMEN: Soft, non-tender and non-distended. No palpable masses. EXTREMITIES: No edema. Non-tender. SKIN: No rashes or lesions. Warm. NEUROLOGIC: No focal neurological deficits. CN II-XII grossly intact, but not individually tested. PSYCHIATRIC: Cooperative. Appropriate mood and affect. Current Medications Medications (Trade) Dose Ordered Sig/Asif Route Start Time Stop Time Status Last Admin Dose Admin Albuterol (DUOneb) 1 UDVIAL [id number] IH 04/06/25 12:00 04/06/25 11:12 DC Artificial Tears (Artificial Tears) 2 DROPS Q4H OU 04/12/25 17:00 04/14/25 13:15 DC 04/14/25 13:14 1 DROP Azithromycin 250 ml @ 250 mls/hr ONCE IVPB 04/06/25 09:00 04/06/25 10:00 DC 04/06/25 10:45 250 MLS/HR Bacitracin (Bacitracin 28.4gm) apply to right and left thi... BID TP 04/15/25 21:00 05/15/25 20:59 04/17/25 10:17 1 GM Calcium Gluconate (Calcium Gluc 1gm Vial) 1 gm ONCE IVPB 04/08/25 17:00 05/08/25 16:59 UNV Calcium Gluconate (Calcium Gluc 1gm Vial) 1 gm PROTOCOL IVPB 04/09/25 05:00 05/09/25 04:59 04/09/25 05:17 1 GM Dexmedetomidine/ Sodium Chloride (PRECEdex 400MCG/ 100ML-NS) 400 mcg PROTOCOL IV 04/06/25 18:30 04/10/25 11:09 DC 04/09/25 09:22 400 MCG Dexmedetomidine/ Sodium Chloride (PRECEdex 400MCG/ 100ML-NS) 400 mcg PROTOCOL IV 04/12/25 18:30 04/14/25 13:15 DC 04/12/25 19:00 400 MCG Dextrose 1,000 ml @ 75 mls/hr [id number] IV 04/06/25 20:30 04/07/25 12:45 DC 04/06/25 20:29 75 MLS/HR Dextrose/Sodium Chloride 1,000 ml @ 75 mls/hr [id number] IV 04/09/25 10:00 04/10/25 21:01 DC 04/09/25 15:00 75 MLS/HR Dobutamine HCl/ Dextrose 250 ml @ 42.483 mls/ hr PROTOCOL IV 04/10/25 11:30 05/10/25 11:29 04/17/25 13:21 42.483 MLS/HR Doxycycline Hyclate 250 ml @ 125 mls/hr Q12H IV 04/10/25 11:30 04/20/25 11:29 04/17/25 12:44 125 MLS/HR Enoxaparin Sodium (Lovenox) 30 mg DAILY SQ 04/07/25 08:00 04/07/25 00:16 DC Epinephrine HCl 10 mg/Sodium Chloride 250 ml @ 0 mls/hr PROTOCOL IV 04/06/25 22:00 04/11/25 11:49 DC Epoetin Prashanth-epbx (Retacrit) 10,000 unit [id number] SQ 04/12/25 09:00 05/12/25 08:59 04/17/25 09:30 10,000 UNIT Fentanyl Citrate 100 ml @ 2.5 mls/hr PROTOCOL IV 04/06/25 09:30 04/08/25 01:51 DC 04/08/25 01:39 2.5 MLS/HR Fentanyl/Sodium Chloride 250 ml @ 0.1 mls/hr PROTOCOL IV 04/08/25 02:00 04/12/25 12:22 DC 04/12/25 01:26 0.1 MLS/HR Fluconazole/ Sodium Chloride 100 ml @ 100 mls/hr DAILY IV 04/17/25 14:00 05/17/25 13:59 04/17/25 14:56 100 MLS/HR Furosemide (LASix 20MG VIAL) 20 mg Q8H IV 04/08/25 15:30 04/10/25 11:09 DC 04/10/25 08:54 20 MG Furosemide 100 mg/ Sodium Chloride 100 ml @ 15 mls/hr PROTOCOL IV 04/10/25 11:30 05/10/25 11:29 04/17/25 10:00 15 MLS/HR Gabapentin (NEURontin 100 mg CAP) 100 mg TID PO 04/14/25 14:00 05/14/25 13:59 04/17/25 13:08 100 MG Insulin Human Regular (humuLIN R 100 UNIT/ML 3ML) INSULIN SLIDING SCAL... Q6H6 SQ 04/10/25 12:00 05/10/25 11:59 04/16/25 07:20 2 UNIT Ipratropium [place] (AtrovENT UD) 0.5 mg [id number] IH 04/07/25 12:00 05/07/25 11:59 04/17/25 11:09 0.5 MG Ipratropium [place] (AtrovENT UD) 0.5 mg [id number] 04/07/25 22:10 04/07/25 11:41 DC Lactated Ringer's (Lactated Ringers 1000ml) 1,000 ml BOLUS IV 04/06/25 16:30 04/08/25 07:52 DC Lidocaine (Lidoderm Patch 5%) 1 patch DAILY TP 04/15/25 09:00 05/15/25 08:59 04/17/25 08:05 1 PATCH Linezolid 300 ml @ 150 mls/hr Q12H IV 04/09/25 14:00 04/09/25 16:14 DC Linezolid 300 ml @ 150 mls/hr Q12H IV 04/09/25 16:30 04/19/25 16:29 04/17/25 03:45 150 MLS/HR Magnesium Sulfate 50 ml @ 0 mls/hr PROTOCOL IV 04/09/25 05:00 05/09/25 04:59 04/12/25 08:56 25 MLS/HR Meropenem (Merrem 1gm) 1 gm Q12H IVPB 04/06/25 11:00 04/08/25 07:56 DC 04/07/25 23:48 1 GM Meropenem (Merrem 1gm) 1 gm Q24H IVPB 04/08/25 23:00 04/10/25 22:53 DC 04/10/25 00:08 1 GM Meropenem (Merrem 1gm) 1 gm Q24H IVPB 04/11/25 02:00 04/21/25 01:59 04/17/25 00:28 1 GM Methylprednisolone Sodium Succinate (Solu-medROL 40MG) 40 mg Q12H9 IVP 04/13/25 21:00 05/13/25 20:59 04/17/25 08:05 40 MG Methylprednisolone Sodium Succinate (Solu-medROL 40MG) 40 mg Q6H IVP 04/11/25 16:00 04/13/25 16:54 DC 04/13/25 10:39 40 MG Methylprednisolone Sodium Succinate (Solu-medROL 40MG) 60 mg Q6H IVP 04/08/25 10:00 04/11/25 11:49 DC 04/11/25 08:48 60 MG Methylprednisolone Sodium Succinate (Solu-medROL 125MG) 60 mg Q6H IVP 04/06/25 22:00 04/08/25 07:50 DC 04/08/25 03:43 60 MG Metolazone (zarOXOlyn) 5 mg [id number] PO 04/17/25 06:30 05/17/25 06:29 04/17/25 12:44 5 MG Micafungin Sodium 100 ml @ 100 mls/hr Q24H IV 04/08/25 10:00 04/09/25 09:59 DC 04/08/25 09:19 100 MLS/HR Norepinephrine 250 ml @ 0 mls/hr PROTOCOL IV 04/06/25 10:30 04/06/25 21:28 DC 04/06/25 21:18 263.253 MLS/HR Norepinephrine Bitartrate 32 mg/ Sodium Chloride 250 ml @ 0 mls/hr PROTOCOL IV 04/07/25 08:30 05/07/25 08:29 04/08/25 01:59 0 MLS/HR Norepinephrine Bitartrate 32 mg/ Sodium Chloride 250 ml @ 0 mls/hr Q0M STAT IV 04/06/25 21:20 04/06/25 21:31 DC 04/06/25 21:50 0 MLS/HR Pantoprazole Sodium (PROTonix 40MG INJ) 40 mg BID IVP 04/07/25 09:00 05/07/25 08:59 04/17/25 08:03 40 MG Pharmacy Profile Note (Pharmacy Communication) 1 each ONCE MISC 04/08/25 08:30 04/08/25 08:51 DC Pharmacy Profile Note (Pharmacy Communication) 1 each ONCE MISC 04/08/25 13:30 04/08/25 11:16 DC Pharmacy Profile Note (Pharmacy Communication) 1 each ONCE MISC 04/09/25 10:00 04/09/25 09:58 DC Pharmacy Profile Note (Pharmacy Communication) 1 each ONCE MISC 04/09/25 13:30 04/09/25 13:37 DC Pharmacy Profile Note (Pharmacy Communication) 1 each Q12H9 MISC 04/06/25 21:00 04/06/25 10:19 DC Sodium Bicarbonate 150 meq/Dextrose 1,000 ml @ 50 mls/hr Q20H IVP 04/07/25 00:30 04/08/25 11:02 DC 04/07/25 01:02 50 MLS/HR Sodium Bicarbonate 150 meq/Dextrose 1,000 ml @ 100 mls/hr Q10H IVP 04/08/25 11:30 04/09/25 09:46 DC 04/08/25 21:59 100 MLS/HR Sodium Bicarbonate 150 meq/Dextrose/Water 1,000 ml @ 100 mls/hr Q10H IVP 04/08/25 11:00 04/08/25 11:07 DC Sodium Chloride 500 ml @ 500 mls/hr Q1H IV 04/06/25 21:00 04/07/25 02:12 DC 04/06/25 21:19 500 MLS/HR Sodium Chloride 500 ml @ 500 mls/hr Q1H IV 04/08/25 08:48 04/08/25 11:04 DC 04/08/25 09:19 500 MLS/HR Sodium Chloride 500 ml @ 0 mls/hr Q0M IV 04/09/25 10:00 04/10/25 11:59 DC 04/09/25 10:04 500 MLS/HR Sodium Chloride 500 ml @ 0 mls/hr Q0M IV 04/09/25 14:00 04/10/25 11:59 DC Sodium Chloride 500 ml @ 0 mls/hr Q0M IV 04/09/25 18:00 04/10/25 11:59 DC Sodium Chloride 500 ml @ 0 mls/hr Q0M IV 04/09/25 22:00 04/10/25 11:59 DC 04/09/25 22:00 999 MLS/HR Sodium Chloride 500 ml @ 0 mls/hr Q0M IV 04/10/25 02:00 04/10/25 11:59 DC 04/10/25 02:00 999 MLS/HR Sodium Chloride 500 ml @ 0 mls/hr Q0M IV 04/10/25 06:00 04/10/25 11:59 DC 04/10/25 06:08 999 MLS/HR Sodium Chloride 1,000 ml @ 100 mls/hr Q10H IV 04/06/25 10:00 04/06/25 11:12 DC 04/06/25 10:51 100 MLS/HR Sodium Chloride 1,000 ml @ 100 mls/hr Q10H IV 04/06/25 11:30 04/07/25 12:44 DC Sodium Chloride 1,000 ml @ 500 mls/hr Q2H IV 04/08/25 08:30 04/08/25 08:51 DC Sodium Chloride (NS 50ml) 50 ml AD IV 04/09/25 05:00 04/09/25 05:12 DC Sodium Chloride 154 meq/Dextrose 1,000 ml @ 50 mls/hr Q20H IV 04/07/25 13:00 04/08/25 07:58 DC 04/07/25 13:10 50 MLS/HR Thiamine HCl (Vitamin B-1) 100 mg DAILY IM 04/11/25 09:00 05/11/25 08:59 04/17/25 08:03 100 MG Vancomycin HCl (Vancomycin 750mg) 750 mg Q24H IVPB 04/07/25 09:00 04/08/25 07:56 DC 04/07/25 08:58 750 MG Vancomycin HCl (Vancomycin 750mg) 750 mg Q48H IVPB 04/09/25 09:00 04/09/25 13:28 DC 04/09/25 09:56 750 MG Vancomycin HCl (Vancomycin Protocol) 1 each AD IV 04/06/25 10:00 04/09/25 13:28 DC Vasopressin 40 units/Sodium Chloride 40 ml @ 0 mls/hr PROTOCOL IV 04/06/25 21:30 04/11/25 11:49 DC 04/07/25 04:33 1.8 MLS/HR Vitamin B Complex/ Vit C/Folic Acid (Nephrovite Tablet) 1 cap DAILY PO 04/11/25 09:00 05/11/25 08:59 04/17/25 08:03 1 CAP LABORATORY: [ ] Hematology Labs: Test 04/17/25 06:38 04/16/25 04:43 Range/Units White Blood Count 20.7 H 4.8-10.8 K/uL Red Blood Count 2.19 L 4.00-5.50 MIL/uL Hemoglobin 7.0 *L 12.0-16.0 g/dL Hematocrit 21.4 L 36-48 % Mean Corpuscular Volume 97.7 79-99 fL Mean Corpuscular Hemoglobin 32.0 27.0-33.0 pg Mean Corpuscular Hemoglobin Concent 32.7 32.0-36.0 g/dL Red Cell Distribution Width 19.1 H 11.0-15.5 % Platelet Count 111 L 130-400 K/uL Mean Platelet Volume 11.9 H 7.5-10.5 fL Immature Granulocyte % (Auto) 0.8 0-1 % Neutrophils (%) (Auto) 96.4 H 40.0-77.0 % Lymphocytes (%) (Auto) 0.8 L 21.0-51.0 % Monocytes (%) (Auto) 1.5 L 3.0-13.0 % Eosinophils (%) (Auto) 0.3 0.0-8.0 % Basophils (%) (Auto) 0.2 0.0-5.0 % Neutrophils # (Auto) 20.0 H 1.8-7.7 K/uL Lymphocytes # (Auto) 0.2 L 1.0-4.8 K/uL Monocytes # (Auto) 0.3 0.1-1.0 K/uL Eosinophils # (Auto) 0.07 0.00-0.70 K/uL Basophils # (Auto) 0.04 0.00-0.20 K/uL Absolute Immature Granulocyte (auto 0.16 0-1 K/uL Nucleated Red Blood Cells 0.6 H 0.0-0.19 % Segmented Neutrophils % 97 H 40-70 % Band Neutrophils % 3 H 0-2 % Differential Comment MANUAL DIFFERENTIAL White Cell Morphology Comment Platelet Morphology Comment SLIGHTLY DECREASED Red Blood Cell Morphology See comments Chemistry Labs: Test 04/17/25 12:31 04/17/25 05:20 Range/Units Whole Blood Glucose 157 H 70-110 MG/DL Sodium Level 141 136-145 mmol/L Potassium Level 3.6 3.5-5.1 mmol/L Chloride Level 99 L 101-111 mmol/L Carbon Dioxide Level 24 21-32 mmol/L Blood Urea Nitrogen 118 *H 7-18 mg/dL Creatinine 3.5 H 0.5-1.0 mg/dL Glomerular Filtration Rate Calc 12 >90 mL/min Random Glucose 171 H 70-105 mg/dL Total Calcium 7.9 L 8.5-10.1 mg/dL Phosphorus Level 9.3 H 2.5-4.9 mg/dL Magnesium Level 1.90 1.80-2.40 mg/dL Total Bilirubin 1.9 H 0.2-1.0 mg/dL Aspartate Amino Transf (AST/SGOT) 35 10-37 U/L Alanine Aminotransferase (ALT/SGPT) 84 H 12-78 U/L Alkaline Phosphatase 142 H 50-136 U/L B-Type Natriuretic Peptide 45 0-100 pg/mL Total Protein 3.7 L 6.0-8.3 g/dL Albumin 1.6 L 3.5-5.0 g/dL DIAGNOSTICS / RADIOLOGY: [facility] [address] [place] [address] IMAGING REPORT Signed PATIENT: LORE OCONNELL MR#: [id number] : 1940 SEX: F AGE: 84 LOCATION: [facility] ORDER 2 STATUS: ADM IN REPORT#: [id number] SERVICE REASON: SOB ORDERING PHYSICIAN: BOYD GUERRA PAC PROCEDURE: CXR1VW - CHEST 1VW EXAM: CR Chest, single view. CLINICAL HISTORY: Shortness of breath. COMPARISON: Prior chest radiograph dated April 15, 2025 FINDINGS: Right-sided central venous catheter with tip in the superior vena cava. Mild cardiomegaly with bilateral pulmonary congestion. Mild bilateral pleural effusion is left more than right with adjacent lung atelectasis. Patchy areas of groundglass opacities in the right parahilar region are probable pulmonary edema. A battery pack is in the left anterior chest wall with pacemaker wires in the right atrium and ventricles. No acute osseous abnormality. Degenerative changes in the mid and lower thoracic spine. IMPRESSION: Right-sided central venous catheter with tip in the superior vena cava. Mild cardiomegaly with bilateral pulmonary congestion. Mild bilateral pleural effusion is left more than right with adjacent lung atelectasis. Patchy areas of groundglass opacities in the right parahilar region are probable pulmonary edema. A battery pack is in the left anterior chest wall with pacemaker wires in the right atrium and ventricles. Compared to the prior study, there is an interval progression of bilateral pleural effusion development of groundglass opacities in the right parahilar region. /[place] DICTATED BY: SHAKIR GARCIA Jr., MD DATE: 04/16/25904 ELECTRONICALLY SIGNED BY: SHAKIR GARCIA Jr., MD DATE: 04/16/25904 PATIENT: LORE OCONNELL MR#: [id number] : 1940 SEX: F AGE: 84 LOCATION: [facility] ORDER 8 STATUS: ADM IN REPORT#: [id number] SERVICE 6 REASON: bipap support ORDERING PHYSICIAN: BOYD GUERRA PAC PROCEDURE: CXR1VW - CHEST 1VW EXAM: CR CHEST, 1 VIEW CLINICAL HISTORY: bipap support COMPARISON: CR: CHEST 1VW dated 04/13/2025 06:08 AM EST: TECHNIQUE: Single frontal radiograph of the chest was obtained. FINDINGS: Lines/Devices: A pacemaker is seen with intact leads. The previously noted endotracheal tube is not seen, mostly removed. Lungs: stationary course as regards the previously noted central pulmonary congestion seen in both lungs. Blunted left costophrenic angle still noted, suggestive of minimal pleural effusion. There is no pneumothorax. Mediastinum and cardiovascular structures: Still noted mild cardiomegaly. Prominent aortic calcifications with atheromatous calcifications. The central airway and mediastinal contours are unremarkable. Bones and soft tissues: Unremarkable. IMPRESSION: 1. Mild reduction in the previously noted central pulmonary venous congestion. 2. Blunted left costophrenic angle, suggestive of minimal pleural effusion. 3. Mild cardiomegaly. 4. Prominent aortic calcifications with atheromatous calcifications. 5.As compared to the previous CR: CHEST 1VW dated 04/13/2025 06:08 AM EST, stationary course as regards the previously noted central pulmonary congestion as well as mild cardiomegaly, the previously noted endotracheal tube is not seen in today's study, likely surgically removed .No new findings /[place] DICTATED BY: HENRIK FOX MD DATE: 04/15/252249 ELECTRONICALLY SIGNED BY: HENRIK FOX MD DATE: 04/15/252249 PATIENT: LORE OCONNELL MR#: [id number] : 1940 SEX: F AGE: 84 LOCATION: [facility] ORDER 99 STATUS: ADM IN REPORT#: [id number] SERVICE 9 REASON: chf ORDERING PHYSICIAN: SHADE YOUNGBLOOD MD PROCEDURE: CXR1VW - CHEST 1VW EXAM: CR Chest, 1 View. CLINICAL HISTORY: CHF COMPARISON: 04/12/2025 FINDINGS: The ET tube tip is 4.4 cm away from the juanito. The nasogastric tube is seen below the left hemidiaphragm. LUNGS: Left basilar atelectasis. Otherwise, the lungs are essentially clear. PLEURAL SPACES: No pneumothorax. Stable small left pleural effusion. MEDIASTINUM: Mild cardiomegaly with interval reduction in the central pulmonary venous congestion in both lungs. The pacemaker leads overlie the right atrium and right ventricle. BONES: No acute osseous abnormality. IMPRESSION: 1. Mild cardiomegaly with interval reduction in central pulmonary venous congestion. 2. Stable small left pleural effusion. 3. ET tube tip 4.4 cm from juanito. 4. Nasogastric tube below the left hemidiaphragm. /[place] DICTATED BY: SHAKIR GARCIA Jr., MD DATE: 04/13/251035 ELECTRONICALLY SIGNED BY: SHAKIR GARCIA Jr., MD DATE: 04/13/25 103 PATIENT: LORE OCONNELL MR#: [id number] : 1940 SEX: F AGE: 84 LOCATION: [facility] ORDER 99 STATUS: ADM IN REPORT#: [id number] SERVICE 9 REASON: PNA ORDERING PHYSICIAN: ZENOBIA PEREZ MD PROCEDURE: CXR1VW - CHEST 1VW CHEST 1VW REASON: PNA COMPARISON: Prior chest radiograph from 04/09/2025 is available. FINDINGS: Single view of the chest was obtained. The study is limited due to poor inspiratory radiograph patient is rotated.. The lung [place] are clear. There is no evidence of any vascular congestion. There is mild cardiomegaly with left ventricular contour. There is a support lines including endotracheal tube and nasogastric tube are in satisfactory position. There is a left-sided pacemaker with lead in right atrium and right ventricle.. Mediastinum and bony thorax appear unremarkable. The bony thorax demonstrate mild osteopenia. IMPRESSION: 1. Mild cardiomegaly 2. Support lines satisfactory position 3. Limited study with no evidence of airspace consolidation or pulmonary venous congestion. DICTATED BY: JADEN CHAVIRA MD DATE: 04/10/251251 ELECTRONICALLY SIGNED BY: JADEN CHAVIRA MD DATE: 04/10/251255 PATIENT: LORE OCONNELL MR#: [id number] : 1940 SEX: F AGE: 84 LOCATION: [facility] ORDER 6 STATUS: ADM IN REPORT#: [id number] SERVICE REASON: septic/SOB ORDERING PHYSICIAN: ZENOBIA PEREZ MD PROCEDURE: CAP WO - CT CHEST/ABD/PELV W/O CONTRAST ADDENDUM REPORT ADDENDUM: Results were shared by telephone at 09:07 PM on 04-08-2025 and acknowledged by the Patient's Nurse Ms. Sue Quinones /[place] EXAM: CT Chest, Abdomen and Pelvis without Intravenous Contrast CLINICAL HISTORY: evaluation of sepsis. TECHNIQUE: Axial computed tomography images of the chest, abdomen and pelvis without intravenous contrast. Dose reduction technique was used including one or more of the following: automated exposure control, adjustment of mA and kV according to patient size, and/or iterative reconstruction. Total exam DLP is 1117 mGy x cm. CONTRAST: None. COMPARISON: Prior chest radiograph dated 04/08/2025, acquired at 04:52 hours. FINDINGS: CHEST: LUNGS: Endotracheal tube with its tip positioned 3.5 cm short of juanito. Moderate sized bilateral pleural effusions with atelectasis/consolidation of the lung bases. Multifocal areas of ground-glass opacities, mosaic attenuation are present in the remainder of the lung parenchyma bilaterally. PLEURAL SPACES: Moderate sized bilateral pleural effusions. No pneumothorax. HEART AND MEDIASTINUM: Left chest wall pacemaker with electrodes terminating in the lumen of the coronary sinus and the right heart chambers. Atheromatous calcification of the aortic arch and the coronary arteries. Right sided PICC line visualized with its tip terminating in the right brachiocephalic vein. Feeding tube visualized with its tip terminating at the gastroesophageal junction. Mild cardiomegaly. Coronary arterial calcifications present. Mitral and aortic valve annulus calcifications. No significant pericardial effusion. LYMPH NODES: No lymphadenopathy. ABDOMEN AND PELVIS: LIVER: Ill-defined hypodense area measuring 2 x 2.1 cm in the segment VII of the subcapsular region of the right hepatic lobe, without areas of calcification or fat in it. GALLBLADDER AND BILE DUCTS: Gallbladder is surgically absent. No biliary ductal dilatation. PANCREAS: Pancreas is atrophic. No pancreatic ductal dilatation or calculi. SPLEEN: Spleen is atrophic and shrunken with areas of capsular calcifications. ADRENAL GLANDS: Unremarkable. KIDNEYS, URETERS, AND BLADDER: Bilateral intrarenal segmental arterial calcifications. Multiple right sided renal calculi, measuring up to 4 mm. A Mcdowell's catheter is appropriately positioned in the bladder lumen. No hydronephrosis. No ureteral or bladder calculi. STOMACH AND BOWEL: Evidence of prior surgical intervention involving the stomach, incompletely evaluated due to lack of optimal luminal distension. Gastric bypass surgery status with appropriate position of the gastrojejunal anastomosis. No obstruction. No wall thickening. No CT evidence of colitis or acute diverticulitis. APPENDIX: No CT evidence for appendicitis. PERITONEUM: No free fluid. No free air. LYMPH NODES: No lymphadenopathy. REPRODUCTIVE: Uterus is not distinctly visualized. VASCULATURE: The abdominal aorta demonstrates atheromatous calcification without aneurysm or dissection. BONES AND SOFT TISSUES: Diffuse body wall edema. Right retroperitoneal space hyperdense collection, measuring approximately 14 x 7 x 25 cm, visualized on the anterior aspect of the iliopsoas. It is extending toward the right groin. The right iliacus muscle also appears bulky with similar hyperdense contents, likely representing hematoma. The collection is visualized in the retroperitoneal compartment and is displacing the right kidney anteriorly. Severe osteopenia. Chronic appearing compression deformities of multiple thoracolumbar vertebrae, including T6, T8, T9, T11, T1. The maximum vertebral height loss is visualized at T11 level with increased thoracolumbar junction kyphosis. Grade I anterolisthesis of L4 over L5 without spondylolysis. Dextroscoliosis of the thoracolumbar spine curvature. IMPRESSION: 1. Findings consistent with aspiration pneumonitis. Compared with the prior chest radiograph dated 04/08/2025, acquired at 04:52 hours, the pulmonary parenchymal findings are stable. Right PICC line and the feeding tube need to be repositioned. 2. Large right retroperitoneal hematoma extending along the iliopsoas and into the right iliacus, displacing the right kidney. 3. Several stable chronic and incidental findings are noted, as detailed in the body of the report. /[place] DICTATED BY: HENRIK FOX MD DATE: 04/08/252128 ELECTRONICALLY SIGNED BY: DATE: EXAM: CT Chest, Abdomen and Pelvis without Intravenous Contrast CLINICAL HISTORY: evaluation of sepsis. TECHNIQUE: Axial computed tomography images of the chest, abdomen and pelvis without intravenous contrast. Dose reduction technique was used including one or more of the following: automated exposure control, adjustment of mA and kV according to patient size, and/or iterative reconstruction. Total exam DLP is 1117 mGy x cm. CONTRAST: None. COMPARISON: Prior chest radiograph dated 04/08/2025, acquired at 04:52 hours. FINDINGS: CHEST: LUNGS: Endotracheal tube with its tip positioned 3.5 cm short of juanito. Moderate sized bilateral pleural effusions with atelectasis/consolidation of the lung bases. Multifocal areas of ground-glass opacities, mosaic attenuation are present in the remainder of the lung parenchyma bilaterally. PLEURAL SPACES: Moderate sized bilateral pleural effusions. No pneumothorax. HEART AND MEDIASTINUM: Left chest wall pacemaker with electrodes terminating in the lumen of the coronary sinus and the right heart chambers. Atheromatous calcification of the aortic arch and the coronary arteries. Right sided PICC line visualized with its tip terminating in the right brachiocephalic vein. Feeding tube visualized with its tip terminating at the gastroesophageal junction. Mild cardiomegaly. Coronary arterial calcifications present. Mitral and aortic valve annulus calcifications. No significant pericardial effusion. LYMPH NODES: No lymphadenopathy. ABDOMEN AND PELVIS: LIVER: Ill-defined hypodense area measuring 2 x 2.1 cm in the segment VII of the subcapsular region of the right hepatic lobe, without areas of calcification or fat in it. GALLBLADDER AND BILE DUCTS: Gallbladder is surgically absent. No biliary ductal dilatation. PANCREAS: Pancreas is atrophic. No pancreatic ductal dilatation or calculi. SPLEEN: Spleen is atrophic and shrunken with areas of capsular calcifications. ADRENAL GLANDS: Unremarkable. KIDNEYS, URETERS, AND BLADDER: Bilateral intrarenal segmental arterial calcifications. Multiple right sided renal calculi, measuring up to 4 mm. A Mcdowell's catheter is appropriately positioned in the bladder lumen. No hydronephrosis. No ureteral or bladder calculi. STOMACH AND BOWEL: Evidence of prior surgical intervention involving the stomach, incompletely evaluated due to lack of optimal luminal distension. Gastric bypass surgery status with appropriate position of the gastrojejunal anastomosis. No obstruction. No wall thickening. No CT evidence of colitis or acute diverticulitis. APPENDIX: No CT evidence for appendicitis. PERITONEUM: No free fluid. No free air. LYMPH NODES: No lymphadenopathy. REPRODUCTIVE: Uterus is not distinctly visualized. VASCULATURE: The abdominal aorta demonstrates atheromatous calcification without aneurysm or dissection. BONES AND SOFT TISSUES: Diffuse body wall edema. Right retroperitoneal space hyperdense collection, measuring approximately 14 x 7 x 25 cm, visualized on the anterior aspect of the iliopsoas. It is extending toward the right groin. The right iliacus muscle also appears bulky with similar hyperdense contents, likely representing hematoma. The collection is visualized in the retroperitoneal compartment and is displacing the right kidney anteriorly. Severe osteopenia. Chronic appearing compression deformities of multiple thoracolumbar vertebrae, including T6, T8, T9, T11, T1. The maximum vertebral height loss is visualized at T11 level with increased thoracolumbar junction kyphosis. Grade I anterolisthesis of L4 over L5 without spondylolysis. Dextroscoliosis of the thoracolumbar spine curvature. IMPRESSION: 1. Findings consistent with aspiration pneumonitis. Compared with the prior chest radiograph dated 04/08/2025, acquired at 04:52 hours, the pulmonary parenchymal findings are stable. Right PICC line and the feeding tube need to be repositioned. 2. Large right retroperitoneal hematoma extending along the iliopsoas and into the right iliacus, displacing the right kidney. 3. Several stable chronic and incidental findings are noted, as detailed in the body of the report. /[place] DICTATED BY: HENRIK FOX MD DATE: 04/08/252056 ELECTRONICALLY SIGNED BY: HENRIK FOX MD DATE: 04/08/252056 PATIENT: LORE OCONNELL MR#: [id number] : 1940 SEX: F AGE: 84 LOCATION: [facility] ORDER 1 STATUS: ADM IN REPORT#: [id number] SERVICE 0 REASON: HF ORDERING PHYSICIAN: BOY[facility] PROCEDURE: ECHO CMP - ECHO 2-D COMPLETE APPROVED REPORT EXAM: Two-dimensional and M-mode echocardiogram with Doppler and color Doppler. INDICATION ICD: Elevated liver enzymes 2D Dimensions RVDd 5.0 cm LVEF(%) 54.9 (>50%) LA ESV INDEX (BP) 85.96 mL/m2 IVSd 0.8 (0.7-1.1cm) FS(%) 29 % LVDd 5.1 (3.8-5.6cm) LA (2D) 6.2 (1.6-4.0cm) PWd 1.2 (0.7-1.1cm) Ao Root(2D) 3.0 (2.0-3.7cm) IVSs 1.0 cm LVOT diam 2.2 (1.8-2.4cm) LVDs 3.6 (2.5-4.0cm) PWs 1.5 cm M-Mode Dimensions EPSS 0.9 cm LA (MM) 7.0 (1.6-4.0cm) Ao Root(MM) 3.4 (2.0-3.7cm) Aortic Valve AoV Vmax 1.7 m/s Ao Peak GR 11.9 mmHg LVOT Vmax 0.8 m/s AoV VTI 0.3 m Ao Mean GR 6.7 mmHg LVOT VTI 0.12 m VERONICA (VMAX) 1.64 cm2 Al P1/2T 575 ms VERONICA (VTI) 1.5 cm2 Mitral Valve MV E Vmax 81.2 cm/s DECEL Time 181 ms MV A Vmax 73.1 cm/s P 1/2 T 42 ms E/A ratio 1.1 MVA (PHT) 5.2 cm2 TDI E/E' Medial 14.3 E/E' Lateral 13.4 Medial E' Peak V 5.67 cm/s Lateral E' Peak V 6.04 cm/s Pulmonary Valve PV Vmax 1.2 m/s PI End Ximena. Jonel 142.2 cm/s PV Mean GR 2.7 mmHg PV Peak GR 5.6 mmHg Tricuspid Valve TR Vmax 2.6 m/s RAP (EST) 3 mmHg RVSP 30.0 mmHg TR Peak GR 27.0 mmHg Left Ventricle The left ventricle is normal size. There is global hypokinesis of the left ventricle. There is normal left ventricular wall thickness. LVEF is 30-35%. E/A flow is fused. Right Ventricle The right ventricle is severely dilated. Right ventricular systolic function is mildly reduced. Device lead is present in the right ventricle. Atria The left atrium is severely dilated. LASVI 86mL/m The interatrial septum is intact with no evidence for an atrial septal defect by color. Evidence of increased left atrial pressure with the atrial septum bowed to the right. The right atrium is severely dilated. Aortic Valve Aortic valve is trileaflet, mildly sclerotic and thickened but opens well. Mild aortic regurgitation is present. There is no aortic valvular stenosis. Mitral Valve The mitral valve is thickened. There is mild mitral valve regurgitation noted. There is no mitral valve stenosis. Tricuspid Valve The tricuspid valve is normal in structure. There is no tricuspid valve regurg itation noted. RVSP 30 mmHg Pulmonic Valve The pulmonary valve is normal in structure. There is trace of pulmonic valvular regurgitation. Great Vessels The aortic root is normal in size. The IVC is normal in size and collapses >50% with inspiration. Pericardium There is small pericardial effusion seen posteriorly. Other Information Quality : Adequate Rhythm : NSR Conclusion There is global hypokinesis of the left ventricle. LVEF is 30-35%. The right ventricle is severely dilated and hypokinetic. Device lead is present in the right ventricle. Left atrium is severely dilated. LASVI 86mL/m. No atrial septal defect by color. Evidence of increased left atrial pressure with the atrial septum bowed to the right. Mild aortic regurgitation. Thckened mitral valve leaflets. Mild mitral valve regurgitation. Small pericardial effusion seen posteriorly. DICTATED BY: KASH DUONG DO DATE: 04/07/25 0950 ELECTRONICALLY SIGNED BY: KASH DUONG DO DATE: 04/07/25 6286 ASSESSMENT: Acute on chronic kidney disease Anemia Retroperitoneal hemorrhage newly diagnosed via CT scan of the abdomen Acute hypoxic respiratory failure present on admission currently on mechanical ventilatory support via endotracheal tube Severe sepsis with shock Severe metabolic acidosis Hospital-acquired pneumonia Acute complicated cystitis Atrial fibrillation on chronic anticoagulation therapy Dilated cardiomyopathy ejection fraction 35-40% with moderate pulmonary hypotension Remote CVA Hx of Right lower extremity DVT History of right TKA Suspected AICD malfunction Status post AICD PLAN: Labs, diagnostic, radiologic exams reviewed and interpreted by myself and supervising physician. We have reviewed external records in detail There is no need for emergent renal replacement therapy at this time However, if renal function continues to worsen then patient may ultimately require dialysis Dialysis remains a high-risk procedure due to patient's underlying condition This is discussed with family at the bedside, multiple questions were answered Pending discussion for goals of care Continue with diuretics Require close monitoring of renal function and electrolytes Order CBC, CMP, and electrolytes in am BiPAP, for respiratory distress IV pressors, as needed Continue with antibiotics Monitor blood pressure adjust medication doses as needed Avoid hypotensive episodes May use Dilaudid 0.5 mg IV every 6 hours as needed for severe pain Monitor blood sugars Strict intake, output, and daily weight should be monitored Please renally adjust medications Avoid nephrotoxic and nonsteroidal drugs Avoid contrast if possible Will continue to monitor renal function, anemia, electrolytes Treatment plan discussed with patient Questions were answered We have discussed with the other team physicians in detail about the care plan We will continue to monitor the patient closely Total critical care time spent with patient, nursing staff, critical care team over 35 minutes ATTESTATION BY PHYSICIAN I have seen and examined the patient. I reviewed the documentation, medical decision making, and treatment plan as noted by the mid-level provider above. I agree with the findings and plan of care. BREANA YUSUF MD, [facility] Apr 17, 2025 15:11
--- NOTE | 2025-04-17 15:27 | NUR ---
PALLIATIVE CARE/HOSPICE/ CODE STATUS sw met wit pt's daughter/PATTIE Lovett and educated on Palliative Care/ Dr Rangel. Daugher sates they can possibly only meet with Dr Rangel today. Sw spoke to Dr Rangel and he can only meet with them at [facility] today. He leaves out of town tomorrow till . Family can't meet at that time. sw spoke to daughter and educated on Inpt hospice, and code status. Daughter wants o speak to her broher, does no wan to make decision on her own.
--- NOTE | 2025-04-17 15:48 | NUR ---
DNR/ DR KATELYNN morris on his way to see pt and speak to family. PATTIE Lovett made aware. per daughter brother was here and are in agreement to make pt DNR. DNR paperwk signed
--- NOTE | 2025-04-17 16:01 | NUR ---
SPEECH NOTE: MBSS order was on hold since yesterday. As per nurse Krueger and attending respiratory therapist, patient on BiPAP at this time. MBSS will be cancelled and re-ordered when patient is appropriate. All questions answered. Addendum: 04/17/[address] [facility] Amended: Links added.
--- NOTE | 2025-04-17 16:57 | PN ---
INFECTIOUS DISEASE PROGRESS NOTE Date of Service: Apr 17, 2025 SUBJECTIVE: This is an 84-year-old female patient who was seen and examined at bedside in room 218. Patient remains on continuous BiPAP support. WBC trended down to 20.7. The hemoglobin however is low at 6.9 and renal function declined with a BUN of 118 and creatinine of 3.5. Patient will be transfused 1 unit of PRBC. Daughter present at bedside and was updated with patient's status. Palliative care was discussed and she is agreeable to obtain information. We will have farmworker fur talk to patient's daughter and provide information. Patient has been started on NG tube feedings with Nepro. Continues on linezolid IV and Meropenem and doxycycline. PHYSICAL EXAM EYES: Anicteric. Pupils equal and reactive. HENT: No oral thrush seen, moist Oral mucosa NECK: Supple, no JVD or thyromegaly. LUNGS: Diminished breath sounds. On oxygen support CARDIOVASCULAR: S1, S2 regular. No murmur heard. ABDOMEN: Soft, non tender, bowel sounds present, no organomegaly CENTRAL NERVOUS SYSTEM: Oriented and alert SKIN: No rashes, no swelling. LYMPHATICS: No peripheral lymphadenopathy MUSCULOSKELETAL: No joint swelling, erythema or tenderness. EXTREMITIES: No cyanosis or clubbing. Generalized edema, improving. BACK: No deformity, no pressure ulcer. GENITOURINARY: No dysuria or hematuria, Mcdowell catheter. Vital Sign (Last 12 Hours) 04/17/25 04/17/25 04/17/25 04/17/25 05:07 05:24 05:37 05:53 Pulse 91 91 91 91 Resp 29 29 29 30 B/P (MAP) 134/55 (81) 98/46 (63) 109/46 (67) 93/49 (64) Pulse Ox 99 99 100 100 04/17/25 04/17/25 04/17/25 04/17/25 06:07 06:19 06:20 06:24 Pulse 91 90 90 91 Resp 27 27 28 29 B/P (MAP) 126/60 (82) 172/86 (114) Pulse Ox 100 99 FiO2 65 04/17/25 04/17/25 04/17/25 04/17/25 07:30 08:00 08:00 08:00 Temp 99.0 Pulse 91 91 Resp 29 31 B/P (MAP) 101/50 (67) 98/43 (61) Pulse Ox 99 100 99 O2 Delivery Bi-PAP+ BIPAP FiO2 65 65 04/17/25 04/17/25 04/17/25 04/17/25 08:30 09:00 09:30 09:45 Pulse 91 91 91 91 Resp 29 30 28 29 B/P (MAP) 89/43 (58) 107/48 (67) 92/44 (60) 101/49 (66) Pulse Ox 100 100 100 100 04/17/25 04/17/25 04/17/25 04/17/25 10:00 10:15 10:30 10:45 Pulse 91 91 91 91 Resp 28 29 29 29 B/P (MAP) 94/47 (63) 101/49 (66) 101/49 (66) 85/46 (59) Pulse Ox 100 100 100 100 04/17/25 04/17/25 04/17/25 04/17/25 11:00 11:09 11:12 11:15 Pulse 91 91 91 91 Resp 32 23 27 27 B/P (MAP) 93/52 (66) 135/56 (82) Pulse Ox 100 100 FiO2 65 04/17/25 04/17/25 04/17/25 04/17/25 12:00 12:00 12:00 12:15 Temp 97.5 Pulse 91 91 Resp 29 29 B/P (MAP) 102/48 (66) 102/48 (66) Pulse Ox 98 99 99 O2 Delivery BIPAP Bi-PAP+ FiO2 65 65 04/17/25 04/17/25 04/17/25 04/17/25 12:45 13:15 13:21 13:45 Pulse 91 91 91 Resp 34 32 32 B/P (MAP) 104/50 (68) 89/49 (62) 104/50 96/49 (65) Pulse Ox 99 99 99 04/17/25 04/17/25 04/17/25 04/17/25 14:14 14:15 14:21 16:00 Temp 98.2 Pulse 91 91 Resp 29 30 B/P (MAP) 98/48 (65) 96/49 Pulse Ox 100 O2 Delivery BIPAP FiO2 65 65 04/17/25 16:00 Pulse Ox 99 O2 Delivery Bi-PAP+ FiO2 65 Intake & Output (last 24hrs) 04/16/25 04/16/25 04/17/25 15:00 23:00 07:00 Intake Total 612.4 ml 915.4 ml 626.5 ml Output Total 300 ml Balance 612.4 ml 615.4 ml 626.5 ml LABS: Laboratory: Test 04/17/25 15:27 04/17/25 12:31 04/17/25 06:38 04/17/25 05:20 Range/Units Hemoglobin 6.9 *L 12.0-16.0 g/dL Hematocrit 20.5 *L 36-48 % Whole Blood Glucose 157 H 70-110 MG/DL White Blood Count 20.7 H 4.8-10.8 K/uL Red Blood Count 2.19 L 4.00-5.50 MIL/uL Mean Corpuscular Volume 97.7 79-99 fL Mean Corpuscular Hemoglobin 32.0 27.0-33.0 pg Mean Corpuscular Hemoglobin Concent 32.7 32.0-36.0 g/dL Red Cell Distribution Width 19.1 H 11.0-15.5 % Platelet Count 111 L 130-400 K/uL Mean Platelet Volume 11.9 H 7.5-10.5 fL Immature Granulocyte % (Auto) 0.8 0-1 % Neutrophils (%) (Auto) 96.4 H 40.0-77.0 % Lymphocytes (%) (Auto) 0.8 L 21.0-51.0 % Monocytes (%) (Auto) 1.5 L 3.0-13.0 % Eosinophils (%) (Auto) 0.3 0.0-8.0 % Basophils (%) (Auto) 0.2 0.0-5.0 % Neutrophils # (Auto) 20.0 H 1.8-7.7 K/uL Lymphocytes # (Auto) 0.2 L 1.0-4.8 K/uL Monocytes # (Auto) 0.3 0.1-1.0 K/uL Eosinophils # (Auto) 0.07 0.00-0.70 K/uL Basophils # (Auto) 0.04 0.00-0.20 K/uL Absolute Immature Granulocyte (auto 0.16 0-1 K/uL Nucleated Red Blood Cells 0.6 H 0.0-0.19 % Sodium Level 141 136-145 mmol/L Potassium Level 3.6 3.5-5.1 mmol/L Chloride Level 99 L 101-111 mmol/L Carbon Dioxide Level 24 21-32 mmol/L Blood Urea Nitrogen 118 *H 7-18 mg/dL Creatinine 3.5 H 0.5-1.0 mg/dL Glomerular Filtration Rate Calc 12 >90 mL/min Random Glucose 171 H 70-105 mg/dL Total Calcium 7.9 L 8.5-10.1 mg/dL Phosphorus Level 9.3 H 2.5-4.9 mg/dL Magnesium Level 1.90 1.80-2.40 mg/dL Total Bilirubin 1.9 H 0.2-1.0 mg/dL Aspartate Amino Transf (AST/SGOT) 35 10-37 U/L Alanine Aminotransferase (ALT/SGPT) 84 H 12-78 U/L Alkaline Phosphatase 142 H 50-136 U/L B-Type Natriuretic Peptide 45 0-100 pg/mL Total Protein 3.7 L 6.0-8.3 g/dL Albumin 1.6 L 3.5-5.0 g/dL Test 04/17/25 03:52 04/16/25 15:55 04/16/25 07:40 04/16/25 04:43 Range/Units Blood Gas Specimen Type Arterial Arterial Blood pH 7.498 H 7.350-7.450 Arterial Blood Partial Pressure CO2 30 L 32-45 mmHg Arterial Blood Partial Pressure O2 123.9 H 83.0-108.0 mmHg Arterial Blood HCO3 23.1 21.0-28.0 mmol/L Arterial Blood Oxygen Saturation 98.1 H 94.0-98.0 % Arterial Blood Base Excess 0.1 -2.0-3.0 mmol/L Hemoglobin (Blood Gas) 7.4 L 12.0-16.0 g/dL Sodium (Blood Gas) 136 136-145 MMOL/L Bedside Potassium (Blood Gas) 3.5 3.4-4.5 MMOL/L Bedside Chloride (Blood Gas) 99 98-107 MMOL/L Bedside Glucose (Blood Gas) 144 H 65-95 MG/DL Bedside Ionized Calcium (Blood Gas) 1.04 L 1.15-1.33 MMOL/L Bedside Lactic Acid (Blood Gas) 4.47 *H 0.36-0.75 MMOL/L Blood Gas Temperature 37.0 35.5-37.0 CELSIUS Blood Gas Respiration Rate 12.0 min. Blood Gas Vent Mode BIPAP 12,6 ROOM AIR FiO2 75.0 % Blood Gas Specimen Comment LR ROBRN Urine Color YELLOW YELLOW Urine Appearance CLEAR CLEAR Urine pH 5.5 5.0-8.0 Urine Specific [place] 1.015 1.001-1.031 Urine Protein TRACE H NEGATIVE mg/dL Urine Glucose (UA) NEGATIVE NEGATIVE mg/dL Urine Ketones NEGATIVE NEGATIVE mg/dL Urine Occult Blood MODERATE H NEGATIVE Urine Nitrate NEGATIVE NEGATIVE Urine Bilirubin NEGATIVE NEGATIVE mg/dL Urine Urobilinogen 0.2 0.2-1.0 mg/dL Urine Leukocyte Esterase TRACE H NEGATIVE Nicole/uL Urine RBC >100 H 0-1 /HPF Urine WBC 0-1 0-1 /HPF Urine Squamous Epithelial Cells Rare 0-2 /HPF Urine Bacteria None Seen None Seen /HPF Urine Yeast Many H None Seen /HPF Blood Gas PEEP 6 cm H2O Segmented Neutrophils % 97 H 40-70 % Band Neutrophils % 3 H 0-2 % Differential Comment MANUAL DIFFERENTIAL White Cell Morphology Comment Platelet Morphology Comment SLIGHTLY DECREASED Red Blood Cell Morphology See comments Test 04/16/25 01:47 Range/Units Stool Occult Blood POSITIVE H NEGATIVE ASSESSMENT: Hypoxic respiratory failure, requiring intubation, s/p extubated, now on continuous BiPAP support.. Healthcare associated Pneumonia. Septic shock. Anemia, POA requiring blood transfusion. Acute on chronic renal failure. Heart failure. Elevated liver enzymes, improved. Morbid obesity. Diabetes mellitus. PLAN: Continue on linezolid IV. Continue on Meropenem. Continues on Doxycycline. Continue GI prophylaxis. Continue on BiPAP support. Continue diuretics. Continue critical care support. Patient has been started on NG tube feedings with Nepro. Avoid nephrotoxic medications. farmworker fur evaluation for palliative care. This case was reviewed and discussed with my supervising physician Dr. Rawls and the above assessment and plan was formulated and agreed upon. ATTESTATION BY PHYSICIAN I have seen and examined the patient. I reviewed the documentation, medical decision making, and treatment plan as noted by the mid-level provider above. I agree with the findings and plan of care. CASSY RAWLS MD, [facility] Apr 17, 2025 16:57
--- NOTE | 2025-04-17 17:17 | CONS ---
CONSULTATION NOTE DATE OF CONSULTATION: 04/17/25 REASON FOR CONSULTATION: Goals of care in a patient with congestive heart failure and acute renal failure HISTORY OF PRESENT ILLNESS: The patient is an 84-year-old woman with a history of atrial fibrillation chronic kidney disease remote history of stroke and intolerance to oral anticoagulation. Last month she had a fall with a prosthesis knee dislocation requiring surgery. She had a prolonged hospitalization and then subsequently went to a alf facility. She developed a deep vein thrombosis to the right leg. She was placed on anticoagulation possibly with Lovenox. Patient was then readmitted with severe sepsis with shock and acute hypoxemic respiratory failure. She required intubation and mechanical ventilator support. She was successfully extubated and seems to be doing well for about 24 hours where she deteriorated again. She has now been dependent on BiPAP. She is being treated for hospital-acquired pneumonia. She has worsening renal failure. She is currently encephalopathic and on BiPAP. She is on dobutamine but is still hypotensive. At the time of my visit the patient is obtunded. She has a nasogastric feeding tube in place. I spoke with the patient's daughter at the bedside. She is the patient's medical power of tax attorney. PAST MEDICAL HISTORY: As noted above ALLERGIES: Coded Allergies: codeine (Unverified Allergy, Unknown, HALLUCINATION, 03/16/25) HOME MEDS: Active Scripts Hydrocodone/Acetaminophen (Hydrocodon-Acetaminophen 5-325) 5 Mg-325 Mg Tablet, 1-2 TAB PO Q8H PRN for ACUTE POST-OP PAIN (G89.18) for 7 Days, #42 TAB 0 Refills Prov:ALEKSANDR GARCIA MD 03/30/25 Dabigatran Etexilate Mesylate (Pradaxa) 75 Mg Cap, 1 CAP PO BID for 30 Days, #60 CAP 0 Refills Prov:BOYD NORIEGA MD 03/30/25 Reported Medications Hydrocodone/Acetaminophen (Hydrocodon-Acetaminophn 10-325) 10 Mg-325 Mg Tablet, 1 EACH PO BID PRN for PAIN LEVEL 4 TO 6, TAB 03/17/25 Metoprolol Tartrate (Metoprolol Tartrate) 25 Mg Tablet, 1 TAB PO TID for 30 Days, #60 TAB 0 Refills 03/17/25 Iron Fum & Ps Cmp/Vit C & B (Integra Capsule) 125 Mg-40 Mg-3 Mg Capsule, 1 CAP PO DAILY for 30 Days, #30 CAP 0 Refills 03/17/25 Aspirin (ASPIRIN 81MG CHEW TAB) 81 Mg Tab.chew, 1 TAB PO DAILY for 30 Days, #30 TAB 0 Refills 03/17/25 Dronedarone Hydrochloride (Multaq) 400 Mg Tablet, 1 TAB PO BID for 30 Days, #60 TAB 0 Refills 03/17/25 Omeprazole (Omeprazole) 40 Mg Capsule.dr, 1 CAP PO DAILY 02/18/24 Biotin/Lutein (Biotin Plus 5,000 Mcg Tablet) 5,000 Mcg-10 Mg Tablet, 1 EACH PO DAILY, TAB 02/18/24 [] No Conflict Check, 1 TAB PO DAILY 02/18/24 Furosemide (Furosemide) 40 Mg Tablet, 40 MG PO QMOWEFR, TAB 02/18/24 Melatonin/Pyridoxine HCl (B6) (Melatonin 10 mg Tablet) 10 Mg-10 Mg Tab.mphase, 1 EACH PO HS 02/17/24 Buspirone HCl (Buspirone HCl) 10 Mg Tablet, 10 MG PO HS, TAB 02/17/24 Cranberry Extract (Cranberry) 500 Mg Tablet, 500 MG PO HS, TAB 02/17/24 Venlafaxine HCl (Venlafaxine HCl ER) 75 Mg Cap.er.24h, 1 CAP PO HS 02/17/24 Sennosides (Senna) 8.6 Mg Tablet, 8.6 MG PO HS, TAB 03/22/23 Acetaminophen (Acetaminophen) 500 Mg Tablet, 500 MG PO BID PRN for PAIN LEVEL 1 TO 3, TAB 03/22/23 Baclofen (Baclofen) 20 Mg Tablet, 20 MG PO HS, TAB 03/22/23 Cyanocobalamin (Vitamin B-12) (Vitamin B-12) 1,000 Mcg Capsule, 1000 MCG PO DAILY, CAP 07/22/20 INPATIENT MEDS: Current Medications Medications Dose Ordered Sig/Asif Start Time Stop Time Status Last Admin Dextrose 50 ml AD PRN 04/06/25 16:30 05/06/25 16:29 04/07/25 16:56 Glucagon 1 mg AD PRN 04/06/25 16:30 05/06/25 16:29 Pantoprazole Sodium 40 mg BID 04/07/25 09:00 05/07/25 08:59 04/17/25 08:03 Norepinephrine Bitartrate 32 mg/ Sodium Chloride 250 ml @ 0 mls/hr PROTOCOL 04/07/25 08:30 05/07/25 08:29 04/08/25 01:59 Ipratropium [place] 0.5 mg [id number] 04/07/25 12:00 05/07/25 11:59 04/17/25 11:09 Magnesium Sulfate 50 ml @ 0 mls/hr PROTOCOL 04/09/25 05:00 05/09/25 04:59 04/12/25 08:56 Calcium Gluconate 1 gm PROTOCOL 04/09/25 05:00 05/09/25 04:59 04/09/25 05:17 Linezolid 300 ml @ 150 mls/hr Q12H 04/09/25 16:30 04/19/25 16:29 04/17/25 15:55 Dobutamine HCl/ Dextrose 250 ml @ 42.483 mls/ hr PROTOCOL 04/10/25 11:30 05/10/25 11:29 04/17/25 13:21 Doxycycline Hyclate 250 ml @ 125 mls/hr Q12H 04/10/25 11:30 04/20/25 11:29 04/17/25 12:44 Insulin Human Regular INSULIN SLIDING SCAL... Q6H6 04/10/25 12:00 05/10/25 11:59 04/16/25 07:20 Thiamine HCl 100 mg DAILY 04/11/25 09:00 05/11/25 08:59 04/17/25 08:03 Vitamin B Complex/ Vit C/Folic Acid 1 cap DAILY 04/11/25 09:00 05/11/25 08:59 04/17/25 08:03 Meropenem 1 gm Q24H 04/11/25 02:00 04/21/25 01:59 04/17/25 00:28 Epoetin Prashanth-epbx 10,000 unit QMOWEFRSA 04/12/25 09:00 05/12/25 08:59 04/17/25 09:30 Methylprednisolone Sodium Succinate 40 mg Q12H9 04/13/25 21:00 05/13/25 20:59 04/17/25 08:05 Gabapentin 100 mg TID 04/14/25 14:00 05/14/25 13:59 04/17/25 13:08 Hydromorphone HCl 0.2 mg Q4H PRN 04/14/25 11:30 04/19/25 11:29 Lidocaine 1 patch DAILY 04/15/25 09:00 05/15/25 08:59 04/17/25 08:05 Acetaminophen 650 mg Q6H PRN 04/14/25 20:30 05/14/25 20:29 Acetaminophen 1,000 mg Q6H6 PRN 04/15/25 12:30 05/15/25 12:29 04/15/25 12:15 Bacitracin apply to right and left thi... BID 04/15/25 21:00 05/15/25 20:59 04/17/25 10:17 Metolazone 5 mg [id number] 04/17/25 06:30 05/17/25 06:29 04/17/25 12:44 Fluconazole/ Sodium Chloride 100 ml @ 100 mls/hr DAILY 04/17/25 14:00 05/17/25 13:59 04/17/25 14:56 Bumetanide 2 mg BID 04/17/25 21:00 05/17/25 20:59 VITAL SIGNS Vital Signs Date Time Temp Pulse Resp B/P (MAP) Pulse Ox O2 Delivery O2 Flow Rate FiO2 04/17/25 16:30 91 29 90/48 (62) 100 04/17/25 16:00 91 30 100/48 (65) 100 04/17/25 16:00 99 Bi-PAP+ 65 04/17/25 16:00 98.2 BIPAP 65 04/17/25 15:30 91 34 83/34 (50) 100 04/17/25 15:00 91 33 88/51 (63) 100 04/17/25 14:30 91 32 88/49 (62) 99 04/17/25 14:21 96/49 04/17/25 14:15 91 30 98/48 (65) 100 04/17/25 14:14 91 29 65 04/17/25 13:45 91 32 96/49 (65) 99 04/17/25 13:21 104/50 04/17/25 13:15 91 32 89/49 (62) 99 04/17/25 12:45 91 34 104/50 (68) 99 04/17/25 12:15 91 29 102/48 (66) 99 04/17/25 12:00 91 29 102/48 (66) 99 04/17/25 12:00 98 Bi-PAP+ 65 04/17/25 12:00 97.5 BIPAP 65 04/17/25 11:15 91 27 135/56 (82) 100 04/17/25 11:12 91 27 65 04/17/25 11:09 91 23 04/17/25 11:00 91 32 93/52 (66) 100 04/17/25 10:45 91 29 85/46 (59) 100 04/17/25 10:30 91 29 101/49 (66) 100 04/17/25 10:15 91 29 101/49 (66) 100 04/17/25 10:00 91 28 94/47 (63) 100 04/17/25 09:45 91 29 101/49 (66) 100 04/17/25 09:30 91 28 92/44 (60) 100 04/17/25 09:00 91 30 107/48 (67) 100 04/17/25 08:30 91 29 89/43 (58) 100 04/17/25 08:00 99.0 BIPAP 65 04/17/25 08:00 99 Bi-PAP+ 65 04/17/25 08:00 91 31 98/43 (61) 100 04/17/25 07:30 91 29 101/50 (67) 99 04/17/25 06:24 91 29 172/86 (114) 99 04/17/25 06:20 90 28 65 04/17/25 06:19 90 27 04/17/25 06:07 91 27 126/60 (82) 100 04/17/25 05:53 91 30 93/49 (64) 100 04/17/25 05:37 91 29 109/46 (67) 100 04/17/25 05:24 91 29 98/46 (63) 99 04/17/25 05:07 91 29 134/55 (81) 99 04/17/25 04:52 91 32 104/54 (71) 99 04/17/25 04:37 91 26 129/91 (104) 99 04/17/25 04:24 91 27 94/46 (62) 100 04/17/25 04:15 65 04/17/25 04:07 91 28 142/119 (127) 99 04/17/25 04:00 98 Bi-PAP+ 65 04/17/25 03:53 91 22 113/48 (69) 98 04/17/25 03:52 95.5 04/17/25 03:22 91 28 148/107 (121) 100 04/17/25 03:07 91 29 115/56 (75) 100 04/17/25 02:54 91 27 131/52 (78) 100 04/17/25 02:52 76 28 75 04/17/25 02:37 91 32 112/52 (72) 100 04/17/25 02:22 91 25 97/48 (64) 99 04/17/25 02:07 91 26 99/47 (64) 100 04/17/25 01:53 91 26 98/47 (64) 99 04/17/25 00:39 91 29 111/48 (69) 96 04/17/25 00:23 91 26 94/45 (61) 98 04/17/25 00:08 91 27 95/49 (64) 04/17/25 00:00 95.5 04/17/25 00:00 96 Bi-PAP+ 75 04/16/25 23:58 91 26 100/47 (64) 93 04/16/25 23:52 91 26 04/16/25 23:37 91 30 147/87 (107) 96 04/16/25 23:08 91 25 164/94 (117) 04/16/25 23:03 78 26 75 04/16/25 22:55 74 27 04/16/25 22:52 91 25 105/54 (71) 100 04/16/25 22:07 91 27 153/92 (112) 04/16/25 21:52 91 26 119/49 (72) 04/16/25 21:22 91 26 99/47 (64) 93 04/16/25 20:53 91 28 92/45 (61) 04/16/25 20:38 91 28 93/31 (51) 04/16/25 20:20 91 19 115/63 (80) 04/16/25 20:07 91 20 114/46 (68) 95 04/16/25 20:00 95 Bi-PAP+ 75 04/16/25 20:00 95.5 BIPAP 75 04/16/25 19:37 91 20 114/46 (68) 95 12/2/25 19:29 91 21 89/46 (60) 92 04/16/25 18:53 91 27 BIPAP 75 04/16/25 18:52 91 27 04/16/25 18:50 99/43 04/16/25 18:44 82 27 75 04/16/25 17:30 91 24 97/52 (67) 92 PHYSICAL EXAM The patient has a palliative performance score of 20%. Her eyes are closed. She is not responding to questions. She has profound anasarca. She has weeping edema. BiPAP mask is in place. Patient is with moderate respiratory distress LABORATORY RESULTS Laboratory Tests 04/14/25 17:59: Whole Blood Glucose 183 04/14/25 20:50: Whole Blood Glucose 196 04/15/25 00:06: Whole Blood Glucose 150 04/15/25 04:45: White Blood Count 31.5, Red Blood Count 2.28, Hemoglobin 7.4, Hematocrit 22.6, Mean Corpuscular Volume 99.1, Mean Corpuscular Hemoglobin 32.5, Mean Corpuscular Hemoglobin Concent 32.7, Red Cell Distribution Width 19.0, Platelet Count 123, Mean Platelet Volume 11.6, Nucleated Red Blood Cells 0.3, Sodium Level 140, Potassium Level 3.6, Chloride Level 99, Carbon Dioxide Level 28, Blood Urea Nitrogen 106, Creatinine 3.3, Glomerular Filtration Rate Calc 13, Random Glucose 153, Total Calcium 7.7, Total Bilirubin 1.6, Aspartate Amino Transf (AST/SGOT) 34, Alanine Aminotransferase (ALT/SGPT) 106, Alkaline Phosphatase 165, Total Protein 4.0, Albumin 1.6 04/15/25 09:07: Blood Gas Specimen Type Arterial, Arterial Blood pH 7.460, Arterial Blood Partial Pressure CO2 39, Arterial Blood Partial Pressure O2 82.7, Arterial Blood HCO3 26.8, Arterial Blood Oxygen Saturation 95.7, Arterial Blood Base Excess 2.8, Hemoglobin (Blood Gas) 8.2, Sodium (Blood Gas) 137, Bedside Potassium (Blood Gas) 3.5, Bedside Chloride (Blood Gas) 100, Bedside Glucose (Blood Gas) 168, Bedside Ionized Calcium (Blood Gas) 1.04, Bedside Lactic Acid (Blood Gas) 2.68, Blood Gas Temperature 37.0, Blood Gas Respiration Rate 12.0, Blood Gas Vent Mode BIPAP 10-5, FiO2 50.0, Blood Gas Specimen Comment MAGANJARRED 04/15/25 11:53: Whole Blood Glucose 135 04/15/25 14:27: Urine Random Sodium 79, Urine Random Potassium 31, Urine Random Chloride 101 04/15/25 17:24: Whole Blood Glucose 171 04/16/25 01:42: Whole Blood Glucose 156 04/16/25 01:47: Stool Occult Blood POSITIVE 04/16/25 04:43: White Blood Count 28.7, Red Blood Count 2.26, Hemoglobin 7.4, Hematocrit 22.2, Mean Corpuscular Volume 98.2, Mean Corpuscular Hemoglobin 32.7, Mean Corpuscular Hemoglobin Concent 33.3, Red Cell Distribution Width 18.9, Platelet Count 121, Mean Platelet Volume 12.2, Segmented Neutrophils % 97, Band Neutrophils % 3, Nucleated Red Blood Cells 0.2, Differential Comment MANUAL DIFFERENTIAL, White Cell Morphology Comment , Platelet Morphology Comment SLIGHTLY DECREASED, Red Blood Cell Morphology See comments, Sodium Level 144, Potassium Level 3.7, Chloride Level 103, Carbon Dioxide Level 26, Blood Urea Nitrogen 111, Creatinine 3.3, Glomerular Filtration Rate Calc 13, Random Glucose 177, Total Calcium 7.5, Phosphorus Level 9.0, Magnesium Level 2.00, Total Bilirubin 1.9, Aspartate Amino Transf (AST/SGOT) 40, Alanine Aminotransferase (ALT/SGPT) 103, Alkaline Phosphatase 163, Total Protein 4.0, Albumin 1.7 04/16/25 07:40: Blood Gas Specimen Type Arterial, Arterial Blood pH 7.444, Arterial Blood Partial Pressure CO2 39, Arterial Blood Partial Pressure O2 97.6, Arterial Blood HCO3 26.1, Arterial Blood Oxygen Saturation 96.8, Arterial Blood Base Excess 1.9, Hemoglobin (Blood Gas) 7.9, Sodium (Blood Gas) 136, Bedside Potassium (Blood Gas) 3.4, Bedside Chloride (Blood Gas) 100, Bedside Glucose (Blood Gas) 186, Bedside Ionized Calcium (Blood Gas) 1.06, Bedside Lactic Acid (Blood Gas) 3.16, Blood Gas Temperature 37.0, Blood Gas Respiration Rate 12.0, Blood Gas V ent Mode BIPAP 12 6, FiO2 75.0, Blood Gas PEEP 6, Blood Gas Specimen Comment KOFFI DC 04/16/25 12:21: Whole Blood Glucose 152 04/16/25 15:55: Urine Color YELLOW, Urine Appearance CLEAR, Urine pH 5.5, Urine Specific [place] 1.015, Urine Protein TRACE, Urine Glucose (UA) NEGATIVE, Urine Ketones NEGATIVE, Urine Occult Blood MODERATE, Urine Nitrate NEGATIVE, Urine Bilirubin NEGATIVE, Urine Urobilinogen 0.2, Urine Leukocyte Esterase TRACE, Urine RBC >100, Urine WBC 0-1, Urine Squamous Epithelial Cells Rare, Urine Bacteria None Seen, Urine Yeast Many 04/16/25 17:29: Whole Blood Glucose 161 04/17/25 03:52: Blood Gas Specimen Type Arterial, Arterial Blood pH 7.498, Arterial Blood Par tial Pressure CO2 30, Arterial Blood Partial Pressure O2 123.9, Arterial Blood HCO3 23.1, Arterial Blood Oxygen Saturation 98.1, Arterial Blood Base Excess 0.1, Hemoglobin (Blood Gas) 7.4, Sodium (Blood Gas) 136, Bedside Potassium (Blood Gas) 3.5, Bedside Chloride (Blood Gas) 99, Bedside Glucose (Blood Gas) 144, Bedside Ionized Calcium (Blood Gas) 1.04, Bedside Lactic Acid (Blood Gas) 4.47, Blood Gas Temperature 37.0, Blood Gas Respiration Rate 12.0, Blood Gas Vent Mode BIPAP 12,6, FiO2 75.0, Blood Gas Specimen Comment LR ROBRN 04/17/25 05:20: Sodium Level 141, Potassium Level 3.6, Chloride Level 99, Carbon Dioxide Level 24, Blood Urea Nitrogen 118, Creatinine 3.5, Glomerular Filtration Rate Calc 12, Random Glucose 171, Total Calcium 7.9, Phosphorus Level 9.3, Magnesium Level 1.90, Total Bilirubin 1.9, Aspartate Amino Transf (AST/SGOT) 35, Alanine Aminotransferase (ALT/SGPT) 84, Alkaline Phosphatase 142, B-Type Natriuretic Peptide 45, Total Protein 3.7, Albumin 1.6 04/17/25 06:38: White Blood Count 20.7, Red Blood Count 2.19, Hemoglobin 7.0, Hematocrit 21.4, Mean Corpuscular Volume 97.7, Mean Corpuscular Hemoglobin 32.0, Mean Corpuscular Hemoglobin Concent 32.7, Red Cell Distribution Width 19.1, Platelet Count 111, Mean Platelet Volume 11.9, Immature Granulocyte % (Auto) 0.8, Neutrophils (%) (Auto) 96.4, Lymphocytes (%) (Auto) 0.8, Monocytes (%) (Auto) 1.5, Eosinophils (%) (Auto) 0.3, Basophils (%) (Auto) 0.2, Neutrophils # (Auto) 20.0, Lymphocytes # (Auto) 0.2, Monocytes # (Auto) 0.3, Eosinophils # (Auto) 0.07, Basophils # (Auto) 0.04, Absolute Immature Granulocyte (auto 0.16, Nucleated Red Blood Cells 0.6 04/17/25 12:31: Whole Blood Glucose 157 04/17/25 15:27: Hemoglobin 6.9, Hematocrit 20.5 Microbiology Date/Time Source Procedure Growth Status 04/16/25 01:47 Stool Stool Culture - Preliminary Sabrina Albicans Resulted PROBLEM LIST Large right retroperitoneal hematoma displacing the right kidney, present on admission Acute hypoxic respiratory failure present on admission Severe sepsis with shock Severe metabolic acidosis Hospital-acquired pneumonia Acute complicated cystitis Severe anemia, requiring transfusion Acute on chronic kidney disease Atrial fibrillation on chronic anticoagulation therapy Dilated cardiomyopathy ejection fraction 35-40% with moderate pulmonary hypote nsion Remote CVA Hx of Right lower extremity DVT PLAN I reviewed the patient's advanced directive. This was signed a few years ago. She appointed her daughter as medical power tax attorney. The patient's has dementia. At the time of this finding of the document according to her daughter the patient had initially wanted to elect to forego life prolonging measures in the event of a terminal or irreversible illness. The patient's daughter convinced her to select the option to continue with life prolonging measures. Neither the patient nor her daughter truly understood the consequences of that decision. In discussing the patient's current condition the patient's daughter doubts the patient would want life prolonging measures if she is not with a reasonable chance to recover or at least stabilized. Certainly the patient would not want life prolonging measures if it meant that her current condition would not improve. The patient also has longstanding wishes against hemodialysis. The patient would be a poor candidate for hemodialysis even emergent hemodialysis in this situation given her hypotension and respiratory failure. The patient's renal failure has been progressively worsening. In the event of a cardiac or respiratory arrest at this point the patient's daughter agrees with a do not resuscitate [id number] order being in place. We discussed the option for comfort measures if the patient fails to improve over the next few days. Certainly if her condition deteriorates further then comfort measures should be considered. We discussed the option for inpatient hospice if the patient is having distressing symptoms requiring intensive symptom management that can only be feasibly done in the hospital setting however the patient's life expectancy off of the current level of support is likely only minutes to hours. I discussed what to expect in a transitioned to comfort measures. I would recommend the use of intravenous hydromorphone to manage respiratory distress and lorazepam to manage anxiety. The plan at this time is to continue with the current level of supportive care. If hemodialysis were to become necessary to prolong the patient's life at that point the option for comfort measures should be brought up. If the patient's respiratory failure fails to improve over the next 24-48 hours the option for comfort measures should be addressed again as well. Complexity high ROBERTA PACE II, MD Apr 17, 2025 17:17
[2025-04-17] MEDS: NOREPINEPHRINE 16MG/NS 250ML PREMIX IV SCH (19:12)
[2025-04-17] MEDS: BUMETANIDE 1MG/4ML VIAL IVP SCH (22:06)
[2025-04-18] VITALS (100 sets, daily range): BP systolic 89–139; BP diastolic 40–91; PULSE 85–91; RESP 13–28; TEMP 97.6–101; O2SAT 98–100
[2025-04-18 04:53] LABS: IMMATURE GRANULOCYTE ABSOLUTE 0.07 K/uL (0-1); NUCLEATED RED BLOOD CELLS 1.1 % (0.0-0.19); PLATELET COUNT (AUTO) 119 K/uL (130-400); RED BLOOD CELL COUNT(AUTO) 2.70 MIL/uL (4.00-5.50); RED CELL DISTRIBUTION WIDTH 18.5 % (11.0-15.5); WHITE BLOOD COUNT (AUTO) 13.6 K/uL (4.8-10.8)
[2025-04-18 05:25] LABS: ASPARTATE AMINOTRANSFERASE 32.0 U/L (10-37); CREATININE 3.9 mg/dL (0.5-1.0); GLOMERULAR FILTR. RATE CALC 11.0 mL/min (>90); GLUCOSE,RANDOM 207.0 mg/dL (70-105); PHOSPHORUS 9.5 mg/dL (2.5-4.9); SODIUM SERUM 139.0 mmol/L (136-145); TOTAL PROTEIN, SERUM 4.1 g/dL (6.0-8.3)
[2025-04-18 05:29] LABS: UREA NITROGEN, BLOOD 121.0 mg/dL (7-18)
--- NOTE | 2025-04-18 08:08 | PN ---
SUBJECTIVE: The patient is in intensive care unit, examined at bedside, continues with BiPAP. The patient is requiring increased concentration of oxygen. Her condition has deteriorated. She is less responsive. Family is at bedside. She is currently with BiPAP in place. OBJECTIVE: GENERAL: Open eye spontaneously. No verbal response. VITAL SIGNS: In the chart. HEENT: Normocephalic, atraumatic. LUNGS: Decreased breath sounds bilaterally. No wheezes, rhonchi. No wet rales. HEART: S1 and S2 are distant. ABDOMEN: Soft and nontender. EXTREMITIES: No clubbing or cyanosis. LABORATORY DATA: WBC count 20,000, hemoglobin 7, and platelets 111. Sodium 141, potassium 3.6, BUN 118, creatinine 3.5, glucose 171, and albumin 1.6. Chest x-ray from yesterday reports right-sided central venous catheter, mild cardiomegaly with bilateral pulmonary congestion, mild bilateral pleural effusion, left more than right, patchy areas of ground glass opacities in the right parahilar region. Stool cultures positive for Sabrina. Sputum cultures positive for Sabrina albicans. Sputum culture from 04/08 positive for Sabrina albicans. ASSESSMENT AND PLAN: * Respiratory failure. Continue with oxygen through BiPAP. The patient might need an intubation. Family will decide later today. * Congestive heart failure. The patient is status post recent biventricular pacemaker placement. Continue current treatment. * Acute kidney injury with uremic syndrome, BUN above 100. Continue supportive care. * Septic shock secondary to urinary tract infection and possible pneumonia with positive culture to sabrina. I am going to start her on Diflucan. * Anemia. Continue to monitor. It is now at 7. Blood transfusion might be needed pending input from Hematology. * Atrial fibrillation, rate controlled. * Congestive heart failure. Recently diagnosed. Continue supportive care. * Type 2 diabetes. Continue ICU protocol. * Metabolic and infectious encephalopathy. Continue current supportive treatment. * The patient's prognosis is poor. * Follow up in a.m. with results. Family was informed. DOS: 04/17/2025 TID: [id number] RECEIPT: [id number] MTD
--- NOTE | 2025-04-18 09:59 | HMCIMG ---
EXAM: CR Chest, 1 View. CLINICAL HISTORY: Resp failure COMPARISON: 04/17/2025 FINDINGS: Right PICC catheter with the tip in the superior vena cava. A nasogastric tube is seen with the tip likely in the gastroesophageal junction; recommend further advancement of the tube for optimal positioning. LUNGS: Interval improvement in bilateral perihilar and basilar airspace disease. PLEURAL SPACES: No pneumothorax. Interval improvement in bilateral pleural effusion, with residual small left pleural effusion with adjacent lung atelectasis. MEDIASTINUM: Mild stable cardiomegaly. Interval reduction in pulmonary vascular congestion. Atherosclerotic aortic arch. Left pacemaker with intact leads in place. BONES: No aggressive appearing osseous lesion seen. IMPRESSION: 1. Interval improvement in bilateral perihilar and basilar airspace disease. 2. Interval improvement in bilateral pleural effusion with residual small left pleural effusion, with adjacent lung atelectasis. 3. Right PICC catheter with tip in the superior vena cava. 4. Nasogastric tube tip likely at the gastroesophageal junction; recommend further advancement for optimal positioning. /[place]
--- NOTE | 2025-04-18 10:12 | HMCIMG ---
EXAM: CR Chest, 1 View. CLINICAL HISTORY: SOB COMPARISON: 04/16/2025 FINDINGS: Right-sided PICC catheter with tip in the superior vena cava. LUNGS: Mild interval increase in right pleural effusion with adjacent lung atelectasis. Stable small left pleural effusion. Persistent patchy areas of ground-glass opacities in the right parahilar region are due to probable pulmonary edema. PLEURAL SPACES: No pneumothorax. MEDIASTINUM: Mild stable cardiomegaly with bilateral pulmonary congestion. A left pacemaker device with intact leads in situ. Atherosclerotic aortic knob. BONES: No acute osseous abnormality. IMPRESSION: 1. Mild interval increase in right pleural effusion with adjacent lung atelectasis. Stable small left pleural effusion. 2. Mild stable cardiomegaly with bilateral pulmonary congestion. Persistent patchy areas of groundglass opacities in the right parahilar region, likely due to pulmonary edema. 3. Right-sided PICC catheter with tip in the superior vena cava. Compared to the prior study, there is an interval progression of right pleural effusion with adjacent lung atelectasis. /[place]
--- NOTE | 2025-04-18 10:18 | PN ---
[facility] PROGRESS NOTE Date Patient Seen: Apr 18, 2025 Time of Visit: 10:05 Supervising Physician: [ Dr. Barnett] Primary Care Physician: SAMIA MENDOZA MD Outpatient Specialists: [ ] Inpatient Consults: BIS PROBLEM LIST: Large right retroperitoneal hematoma displacing the right kidney, present on admission Acute hypoxic respiratory failure present on admission Severe sepsis with shock Severe metabolic acidosis Hospital-acquired pneumonia Acute complicated cystitis Severe anemia, requiring transfusion Acute on chronic kidney disease Atrial fibrillation on chronic anticoagulation therapy Dilated cardiomyopathy ejection fraction 35-40% with moderate pulmonary hypotension Remote CVA Hx of Right lower extremity DVT Suspected AICD malfunction Status post AICD INTERVAL HISTORY: Patient was seen and examined family at bedside. Labs an imaging reviewed. Patient noted edematous. Patient continues on Bipap with increase 02 requirement. Patient has had minimal output 250ml in last 12 hours Continues on the Dobutrex, Bumex,and metolazone White count down 13.6 from 20.7 Patient was transfused over night. hemoglobin 8.5 from 6.9. Patient required Pressors for blood pressure support overnight and has become less responsiv. Plan: Repeat 2D echo Lactic Acid Continue with supplemental O2, currently on BiPAP Follow nephrology recs Continue on Merrem, doxy and Zyvox per ID. Total critical care time spent 50 minutes, this excludes any procedures performed or any time spent in educational or teaching. REVIEW OF SYSTEMS: On bipap and obtunded. PHYSICAL EXAM: GENERAL: obtunded HEENT: , EOMI, Sclera non icteric, moist mucosa NECK: Supple, no JVD, trachea midline LUNGS: Decreased breath sounds, no wheezing. HEART: Irregular rate. Normal S1 and S2, without murmurs ABD: Abdomen soft, nontender. Bowel sounds present large right retroperitoneal hematoma EXT: 3+ edema to the upper extremities bilaterally with some weeping, 4+ edema to the lower extremities bilaterally. NEURO: A&O times1 Vital Signs (last 8hr) Date Time Temp Pulse Resp B/P (MAP) Pulse Ox O2 Delivery O2 Flow Rate FiO2 04/18/25 09:15 91 21 65 04/18/25 08:45 91 17 98/57 (71) 100 04/18/25 08:30 91 18 112/66 (81) 100 04/18/25 08:15 91 22 115/64 (81) 100 04/18/25 08:00 97.9 BIPAP 65 04/18/25 08:00 91 22 115/64 (81) 100 04/18/25 08:00 100 Bi-PAP+ 65 04/18/25 07:45 91 15 100/61 (74) 99 04/18/25 07:30 91 15 100/61 (74) 99 04/18/25 07:15 91 20 110/66 (81) 100 04/18/25 07:00 91 18 94/53 (67) 99 04/18/25 06:45 91 18 111/74 (86) 04/18/25 06:30 91 17 116/65 (82) 100 04/18/25 06:16 91 28 04/18/25 06:15 91 28 65 04/18/25 06:15 91 18 116/48 (70) 100 04/18/25 06:00 91 19 115/61 (79) 100 04/18/25 05:45 91 19 111/62 (78) 100 04/18/25 05:36 104/65 04/18/25 05:30 91 17 107/64 (78) 100 04/18/25 05:15 91 19 104/65 (78) 99 04/18/25 05:00 91 20 133/63 (86) 100 04/18/25 04:45 91 18 114/62 (79) 100 04/18/25 04:36 121/70 04/18/25 04:30 91 20 113/48 (69) 99 04/18/25 04:15 91 21 121/70 (87) 100 04/18/25 04:00 91 21 122/56 (78) 100 04/18/25 04:00 98.1 BIPAP 65 04/18/25 04:00 100 Bi-PAP+ 65 04/18/25 03:30 91 19 104/49 (67) 98 04/18/25 03:15 91 20 114/76 (89) 98 04/18/25 03:00 91 21 103/53 (70) 97 04/18/25 02:45 91 19 120/88 (99) 99 04/18/25 02:34 91 19 65 04/18/25 02:30 91 22 118/47 (70) 98 04/18/25 02:15 91 22 110/53 (72) 98 LABS: Hematology Labs: Test 04/18/25 04:40 Range/Units White Blood Count 13.6 #H 4.8-10.8 K/uL Red Blood Count 2.70 #L 4.00-5.50 MIL/uL Hemoglobin 8.5 L 12.0-16.0 g/dL Hematocrit 25.8 L 36-48 % Mean Corpuscular Volume 95.6 79-99 fL Mean Corpuscular Hemoglobin 31.5 27.0-33.0 pg Mean Corpuscular Hemoglobin Concent 32.9 32.0-36.0 g/dL Red Cell Distribution Width 18.5 H 11.0-15.5 % Platelet Count 119 L 130-400 K/uL Mean Platelet Volume 11.4 H 7.5-10.5 fL Immature Granulocyte % (Auto) 0.5 0-1 % Neutrophils (%) (Auto) 97.7 H 40.0-77.0 % Lymphocytes (%) (Auto) 0.6 L 21.0-51.0 % Monocytes (%) (Auto) 1.0 L 3.0-13.0 % Eosinophils (%) (Auto) 0.0 0.0-8.0 % Basophils (%) (Auto) 0.2 0.0-5.0 % Neutrophils # (Auto) 13.3 H 1.8-7.7 K/uL Lymphocytes # (Auto) 0.1 L 1.0-4.8 K/uL Monocytes # (Auto) 0.1 0.1-1.0 K/uL Eosinophils # (Auto) 0.00 0.00-0.70 K/uL Basophils # (Auto) 0.03 0.00-0.20 K/uL Absolute Immature Granulocyte (auto 0.07 0-1 K/uL Nucleated Red Blood Cells 1.1 H 0.0-0.19 % Chemistry Labs: Test 04/18/25 05:15 04/18/25 04:40 04/17/25 05:20 Range/Units Whole Blood Glucose 170 H 70-110 MG/DL Sodium Level 139 136-145 mmol/L Potassium Level 3.9 3.5-5.1 mmol/L Chloride Level 98 L 101-111 mmol/L Carbon Dioxide Level 22 21-32 mmol/L Blood Urea Nitrogen 121 *H 7-18 mg/dL Creatinine 3.9 H 0.5-1.0 mg/dL Glomerular Filtration Rate Calc 11 >90 mL/min Random Glucose 207 H 70-105 mg/dL Total Calcium 7.8 L 8.5-10.1 mg/dL Phosphorus Level 9.5 H 2.5-4.9 mg/dL Total Bilirubin 1.9 H 0.2-1.0 mg/dL Aspartate Amino Transf (AST/SGOT) 32 10-37 U/L Alanine Aminotransferase (ALT/SGPT) 76 12-78 U/L Alkaline Phosphatase 143 H 50-136 U/L Total Protein 4.1 L 6.0-8.3 g/dL Albumin 1.7 L 3.5-5.0 g/dL Magnesium Level 1.90 1.80-2.40 mg/dL B-Type Natriuretic Peptide 45 0-100 pg/mL DIAGNOSTICS / RADIOLOGY RESULTS: [ ] PLAN NEURO: Minimize central acting medications as possible. Fall Precautions. Well lighted room through the day and minimize interruptions through the night to prevent acute delirium. PULMONARY: On mechanical ventilator support via endotracheal tube at this time CARDIOVASCULAR: Follow hemodynamics. Titrate vasopressor to keep MAP >65 or systolic blood pressure >95mmHg DIPS: [ Levophed ] GI & NUTRITION: Continue nutritional support Aspirations precautions Prokinetic agents and laxatives as needed KIDNEYS & ELECTROLYTES: Strict monitoring of intake and output Daily weights Avoid nephrotoxic agents Monitor electrolytes and replace as needed Goal urine output of 30mL/hr or 0.5mL/kg/hr ENDOCRINE: Maintain blood glucose between 100-180 at all times. Insulin sliding scale for blood glucose management INFECTIOUS DISEASE: Trend temperature. Pittman-culture if febrile. Micro: [Pending results ] Antibiotics: [ As per I and D] HEMATOLOGY & COAGULATION: Monitor H&H. Keep Hgb > 7 Transfuse 1 unit of PRBC for Hgb < 7 Transfuse 1 pack of platelets of platelets < 20, 000 Watch for any signs and symptoms of bleeding SKIN: Pressure ulcer prevention per facility protocol Rehab: PT/OT Prophylaxis: GI: [ Protonix 40 mg IV b.i.d.] DVT: [SCDs to the lower extremities ] Code Status: Full Resuscitation Disposition: [Continue medical management in the ICU ] PACHECO TOBAR AGACNP Apr 18, 2025 10:18
[2025-04-18 10:40] LABS: INR 1.32 (0.85-1.15)
[2025-04-18 11:32] LABS: ABG BASE EXCESS -2.8 mmol/L (-2.0-3.0); ABG HCO3 22.4 mmol/L (21.0-28.0); ABG OXYGEN SATURATION 81.3 % (94.0-98.0); ABG PCO2 41 mmHg (32-45); ABG PH 7.361 (7.350-7.450); CARBON MONOXIDE 0.6 % (0.5-1.5); PO2, ARTERIAL BG 49.5 mmHg (83.0-108.0); TEMPERATURE, CELSIUS BG 37.0 CELSIUS (35.5-37.0); VENT MODE, BG BIPAP 12-6 (ROOM AIR)
--- NOTE | 2025-04-18 11:40 | NUR ---
SS f/u visit Per daughter Rachell, pt had a rough night, but MDs that have rounded stated pt labs are showing some improvement, but her kidney function is the concern. Daughter waiting on critical care and Dr Diaz to round for updates. SW provided emotion support
--- NOTE | 2025-04-18 13:14 | PN ---
NEPHROLOGY PROGRESS NOTE Date/Time Patient Seen: Apr 18, 2025 SUBJECTIVE: This is an 84-year-old female who was sent to the Emergency Room from the [facility] and the patient has shortness of breath and chest pain. CT scan showed Large right retroperitoneal hematoma extending along the iliopsoas and into the right iliacus, displacing the right kidney. Continues to require vasopressors to maintain blood pressure She has been in the hospital for several days and was noted with worsening renal failure She was noted to have elevated BUN and creatinine, She has had acute on chronic renal dysfunction while in the hospital Creatinine has been elevated She continues to require vasopressors to maintain blood pressure. Continues on diuretics She has been extubated, continues on BiPAP The patient has been seen for all of the above Renal function continues to worsen Electrolytes are noted She was seen in the ICU Family at the bedside Condition is critical and guarded REVIEW OF SYSTEMS: GENERAL: Negative for any nausea, vomiting, fevers, chills, or weight loss. NEUROLOGIC: Negative for any blurry vision, blind spots, double vision, facial asymmetry, dysphagia, dysarthria, hemiparesis, hemisensory deficits, vertigo, ataxia. HEENT: Negative for any head trauma, neck trauma, neck stiffness, photophobia, phonophobia, sinusitis, rhinitis. CARDIAC: Negative for any chest pain, dyspnea on exertion, paroxysmal nocturnal dyspnea, peripheral edema. PULMONARY: Negative for any shortness of breath, wheezing, COPD, or TB exposure. GASTROINTESTINAL: Negative for any abdominal pain, nausea, vomiting, bright red blood per rectum, melena. GENITOURINARY: Negative for any dysuria, hematuria, incontinence. INTEGUMENTARY: Negative for any rashes, cuts, insect bites. RHEUMATOLOGIC: Negative for any joint pains, photosensitive rashes, history of vasculitis or kidney problems. HEMATOLOGIC: Negative for any abnormal bruising, frequent infections or bleeding. Vital Signs (last 8hr) Date Time Temp Pulse Resp B/P (MAP) Pulse Ox O2 Delivery O2 Flow Rate FiO2 04/18/25 12:38 110/76 04/18/25 12:00 100 Bi-PAP+ 80 04/18/25 12:00 98.2 BIPAP 80 04/18/25 11:42 91 26 80 04/18/25 11:21 91 20 04/18/25 11:00 91 19 104/49 (67) 100 04/18/25 10:45 91 18 121/71 (88) 100 04/18/25 10:30 91 19 95/72 (80) 100 04/18/25 10:15 91 17 105/65 (78) 100 04/18/25 10:00 91 17 98/65 (76) 100 04/18/25 09:45 91 15 130/55 (80) 91 04/18/25 09:30 91 18 102/58 (73) 98 04/18/25 09:15 91 18 116/43 (67) 95 04/18/25 09:15 91 21 65 04/18/25 09:00 91 15 97/49 (65) 95 04/18/25 08:45 91 17 98/57 (71) 100 04/18/25 08:30 91 18 112/66 (81) 100 04/18/25 08:15 91 22 115/64 (81) 100 04/18/25 08:00 97.9 BIPAP 65 04/18/25 08:00 91 22 115/64 (81) 100 04/18/25 08:00 100 Bi-PAP+ 65 04/18/25 07:45 91 15 100/61 (74) 99 04/18/25 07:30 91 15 100/61 (74) 99 04/18/25 07:15 91 20 110/66 (81) 100 04/18/25 07:00 91 18 94/53 (67) 99 04/18/25 06:45 91 18 111/74 (86) 04/18/25 06:30 91 17 116/65 (82) 100 04/18/25 06:16 91 28 04/18/25 06:15 91 28 65 04/18/25 06:15 91 18 116/48 (70) 100 04/18/25 06:00 91 19 115/61 (79) 100 04/18/25 05:45 91 19 111/62 (78) 100 04/18/25 05:36 104/65 04/18/25 05:30 91 17 107/64 (78) 100 04/18/25 05:15 91 19 104/65 (78) 99 PHYSICAL EXAM: GENERAL: Pale, acutely ill female, lethargic, no acute distress. Well-nourished. EYES: EOMI. Anicteric. HENT: Moist mucous membranes. No scleral icterus. No cervical lymphadenopathy. LUNGS: Clear to auscultation bilaterally. No accessory muscle use. CARDIOVASCULAR: Regular rate and rhythm. No murmur. No JVD. ABDOMEN: Soft, non-tender and non-distended. No palpable masses. EXTREMITIES: No edema. Non-tender. SKIN: No rashes or lesions. Warm. NEUROLOGIC: No focal neurological deficits. CN II-XII grossly intact, but not individually tested. PSYCHIATRIC: Cooperative. Appropriate mood and affect. Current Medications Medications (Trade) Dose Ordered Sig/Asif Route Start Time Stop Time Status Last Admin Dose Admin Albuterol (DUOneb) 1 UDVIAL [id number] IH 04/06/25 12:00 04/06/25 11:12 DC Artificial Tears (Artificial Tears) 2 DROPS Q4H OU 04/12/25 17:00 04/14/25 13:15 DC 04/14/25 13:14 1 DROP Azithromycin 250 ml @ 250 mls/hr ONCE IVPB 04/06/25 09:00 04/06/25 10:00 DC 04/06/25 10:45 250 MLS/HR Bacitracin (Bacitracin 28.4gm) apply to right and left thi... BID TP 04/15/25 21:00 05/15/25 20:59 04/17/25 10:17 1 GM Calcium Gluconate (Calcium Gluc 1gm Vial) 1 gm ONCE IVPB 04/08/25 17:00 05/08/25 16:59 UNV Calcium Gluconate (Calcium Gluc 1gm Vial) 1 gm PROTOCOL IVPB 04/09/25 05:00 05/09/25 04:59 04/09/25 05:17 1 GM Dexmedetomidine/ Sodium Chloride (PRECEdex 400MCG/ 100ML-NS) 400 mcg PROTOCOL IV 04/06/25 18:30 04/10/25 11:09 DC 04/09/25 09:22 400 MCG Dexmedetomidine/ Sodium Chloride (PRECEdex 400MCG/ 100ML-NS) 400 mcg PROTOCOL IV 04/12/25 18:30 04/14/25 13:15 DC 04/12/25 19:00 400 MCG Dextrose 1,000 ml @ 75 mls/hr [id number] IV 04/06/25 20:30 04/07/25 12:45 DC 04/06/25 20:29 75 MLS/HR Dextrose/Sodium Chloride 1,000 ml @ 75 mls/hr [id number] IV 04/09/25 10:00 04/10/25 21:01 DC 04/09/25 15:00 75 MLS/HR Dobutamine HCl/ Dextrose 250 ml @ 42.483 mls/ hr PROTOCOL IV 04/10/25 11:30 05/10/25 11:29 04/17/25 13:21 42.483 MLS/HR Doxycycline Hyclate 250 ml @ 125 mls/hr Q12H IV 04/10/25 11:30 04/20/25 11:29 04/17/25 12:44 125 MLS/HR Enoxaparin Sodium (Lovenox) 30 mg DAILY SQ 04/07/25 08:00 04/07/25 00:16 DC Epinephrine HCl 10 mg/Sodium Chloride 250 ml @ 0 mls/hr PROTOCOL IV 04/06/25 22:00 04/11/25 11:49 DC Epoetin Prashanth-epbx (Retacrit) 10,000 unit [id number] SQ 04/12/25 09:00 05/12/25 08:59 04/17/25 09:30 10,000 UNIT Fentanyl Citrate 100 ml @ 2.5 mls/hr PROTOCOL IV 04/06/25 09:30 04/08/25 01:51 DC 04/08/25 01:39 2.5 MLS/HR Fentanyl/Sodium Chloride 250 ml @ 0.1 mls/hr PROTOCOL IV 04/08/25 02:00 04/12/25 12:22 DC 04/12/25 01:26 0.1 MLS/HR Fluconazole/ Sodium Chloride 100 ml @ 100 mls/hr DAILY IV 04/17/25 14:00 05/17/25 13:59 04/17/25 14:56 100 MLS/HR Furosemide (LASix 20MG VIAL) 20 mg Q8H IV 04/08/25 15:30 04/10/25 11:09 DC 04/10/25 08:54 20 MG Furosemide 100 mg/ Sodium Chloride 100 ml @ 15 mls/hr PROTOCOL IV 04/10/25 11:30 05/10/25 11:29 04/17/25 10:00 15 MLS/HR Gabapentin (NEURontin 100 mg CAP) 100 mg TID PO 04/14/25 14:00 05/14/25 13:59 04/17/25 13:08 100 MG Insulin Human Regular (humuLIN R 100 UNIT/ML 3ML) INSULIN SLIDING SCAL... Q6H6 SQ 04/10/25 12:00 05/10/25 11:59 04/16/25 07:20 2 UNIT Ipratropium [place] (AtrovENT UD) 0.5 mg [id number] IH 04/07/25 12:00 05/07/25 11:59 04/17/25 11:09 0.5 MG Ipratropium [place] (AtrovENT UD) 0.5 mg [id number] IH 04/07/25 22:10 04/07/25 11:41 DC Lactated Ringer's (Lactated Ringers 1000ml) 1,000 ml BOLUS IV 04/06/25 16:30 04/08/25 07:52 DC Lidocaine (Lidoderm Patch 5%) 1 patch DAILY TP 04/15/25 09:00 05/15/25 08:59 04/17/25 08:05 1 PATCH Linezolid 300 ml @ 150 mls/hr Q12H IV 04/09/25 14:00 04/09/25 16:14 DC Linezolid 300 ml @ 150 mls/hr Q12H IV 04/09/25 16:30 04/19/25 16:29 04/17/25 03:45 150 MLS/HR Magnesium Sulfate 50 ml @ 0 mls/hr PROTOCOL IV 04/09/25 05:00 05/09/25 04:59 04/12/25 08:56 25 MLS/HR Meropenem (Merrem 1gm) 1 gm Q12H IVPB 04/06/25 11:00 04/08/25 07:56 DC 04/07/25 23:48 1 GM Meropenem (Merrem 1gm) 1 gm Q24H IVPB 04/08/25 23:00 04/10/25 22:53 DC 04/10/25 00:08 1 GM Meropenem (Merrem 1gm) 1 gm Q24H IVPB 04/11/25 02:00 04/21/25 01:59 04/17/25 00:28 1 GM Methylprednisolone Sodium Succinate (Solu-medROL 40MG) 40 mg Q12H9 IVP 04/13/25 21:00 05/13/25 20:59 04/17/25 08:05 40 MG Methylprednisolone Sodium Succinate (Solu-medROL 40MG) 40 mg Q6H IVP 04/11/25 16:00 04/13/25 16:54 DC 04/13/25 10:39 40 MG Methylprednisolone Sodium Succinate (Solu-medROL 40MG) 60 mg Q6H IVP 04/08/25 10:00 04/11/25 11:49 DC 04/11/25 08:48 60 MG Methylprednisolone Sodium Succinate (Solu-medROL 125MG) 60 mg Q6H IVP 04/06/25 22:00 04/08/25 07:50 DC 04/08/25 03:43 60 MG Metolazone (zarOXOlyn) 5 mg [id number] PO 04/17/25 06:30 05/17/25 06:29 04/17/25 12:44 5 MG Micafungin Sodium 100 ml @ 100 mls/hr Q24H IV 04/08/25 10:00 04/09/25 09:59 DC 04/08/25 09:19 100 MLS/HR Norepinephrine 250 ml @ 0 mls/hr PROTOCOL IV 04/06/25 10:30 04/06/25 21:28 DC 04/06/25 21:18 263.253 MLS/HR Norepinephrine Bitartrate 32 mg/ Sodium Chloride 250 ml @ 0 mls/hr PROTOCOL IV 04/07/25 08:30 05/07/25 08:29 04/08/25 01:59 0 MLS/HR Norepinephrine Bitartrate 32 mg/ Sodium Chloride 250 ml @ 0 mls/hr Q0M STAT IV 04/06/25 21:20 04/06/25 21:31 DC 04/06/25 21:50 0 MLS/HR Pantoprazole Sodium (PROTonix 40MG INJ) 40 mg BID IVP 04/07/25 09:00 05/07/25 08:59 04/17/25 08:03 40 MG Pharmacy Profile Note (Pharmacy Communication) 1 each ONCE MISC 04/08/25 08:30 04/08/25 08:51 DC Pharmacy Profile Note (Pharmacy Communication) 1 each ONCE MISC 04/08/25 13:30 04/08/25 11:16 DC Pharmacy Profile Note (Pharmacy Communication) 1 each ONCE MISC 04/09/25 10:00 04/09/25 09:58 DC Pharmacy Profile Note (Pharmacy Communication) 1 each ONCE MISC 04/09/25 13:30 04/09/25 13:37 DC Pharmacy Profile Note (Pharmacy Communication) 1 each Q12H9 MISC 04/06/25 21:00 04/06/25 10:19 DC Sodium Bicarbonate 150 meq/Dextrose 1,000 ml @ 50 mls/hr Q20H IVP 04/07/25 00:30 04/08/25 11:02 DC 04/07/25 01:02 50 MLS/HR Sodium Bicarbonate 150 meq/Dextrose 1,000 ml @ 100 mls/hr Q10H IVP 04/08/25 11:30 04/09/25 09:46 DC 04/08/25 21:59 100 MLS/HR Sodium Bicarbonate 150 meq/Dextrose/Water 1,000 ml @ 100 mls/hr Q10H IVP 04/08/25 11:00 04/08/25 11:07 DC Sodium Chloride 500 ml @ 500 mls/hr Q1H IV 04/06/25 21:00 04/07/25 02:12 DC 04/06/25 21:19 500 MLS/HR Sodium Chloride 500 ml @ 500 mls/hr Q1H IV 04/08/25 08:48 04/08/25 11:04 DC 04/08/25 09:19 500 MLS/HR Sodium Chloride 500 ml @ 0 mls/hr Q0M IV 04/09/25 10:00 04/10/25 11:59 DC 04/09/25 10:04 500 MLS/HR Sodium Chloride 500 ml @ 0 mls/hr Q0M IV 04/09/25 14:00 04/10/25 11:59 DC Sodium Chloride 500 ml @ 0 mls/hr Q0M IV 04/09/25 18:00 04/10/25 11:59 DC Sodium Chloride 500 ml @ 0 mls/hr Q0M IV 04/09/25 22:00 04/10/25 11:59 DC 04/09/25 22:00 999 MLS/HR Sodium Chloride 500 ml @ 0 mls/hr Q0M IV 04/10/25 02:00 04/10/25 11:59 DC 04/10/25 02:00 999 MLS/HR Sodium Chloride 500 ml @ 0 mls/hr Q0M IV 04/10/25 06:00 04/10/25 11:59 DC 04/10/25 06:08 999 MLS/HR Sodium Chloride 1,000 ml @ 100 mls/hr Q10H IV 04/06/25 10:00 04/06/25 11:12 DC 04/06/25 10:51 100 MLS/HR Sodium Chloride 1,000 ml @ 100 mls/hr Q10H IV 04/06/25 11:30 04/07/25 12:44 DC Sodium Chloride 1,000 ml @ 500 mls/hr Q2H IV 04/08/25 08:30 04/08/25 08:51 DC Sodium Chloride (NS 50ml) 50 ml AD IV 04/09/25 05:00 04/09/25 05:12 DC Sodium Chloride 154 meq/Dextrose 1,000 ml @ 50 mls/hr Q20H IV 04/07/25 13:00 04/08/25 07:58 DC 04/07/25 13:10 50 MLS/HR Thiamine HCl (Vitamin B-1) 100 mg DAILY IM 04/11/25 09:00 05/11/25 08:59 04/17/25 08:03 100 MG Vancomycin HCl (Vancomycin 750mg) 750 mg Q24H IVPB 04/07/25 09:00 04/08/25 07:56 DC 04/07/25 08:58 750 MG Vancomycin HCl (Vancomycin 750mg) 750 mg Q48H IVPB 04/09/25 09:00 04/09/25 13:28 DC 04/09/25 09:56 750 MG Vancomycin HCl (Vancomycin Protocol) 1 each AD IV 04/06/25 10:00 04/09/25 13:28 DC Vasopressin 40 units/Sodium Chloride 40 ml @ 0 mls/hr PROTOCOL IV 04/06/25 21:30 04/11/25 11:49 DC 04/07/25 04:33 1.8 MLS/HR Vitamin B Complex/ Vit C/Folic Acid (Nephrovite Tablet) 1 cap DAILY PO 04/11/25 09:00 05/11/25 08:59 04/17/25 08:03 1 CAP LABORATORY: [ ] Hematology Labs: Test 04/18/25 04:40 Range/Units White Blood Count 13.6 #H 4.8-10.8 K/uL Red Blood Count 2.70 #L 4.00-5.50 MIL/uL Hemoglobin 8.5 L 12.0-16.0 g/dL Hematocrit 25.8 L 36-48 % Mean Corpuscular Volume 95.6 79-99 fL Mean Corpuscular Hemoglobin 31.5 27.0-33.0 pg Mean Corpuscular Hemoglobin Concent 32.9 32.0-36.0 g/dL Red Cell Distribution Width 18.5 H 11.0-15.5 % Platelet Count 119 L 130-400 K/uL Mean Platelet Volume 11.4 H 7.5-10.5 fL Immature Granulocyte % (Auto) 0.5 0-1 % Neutrophils (%) (Auto) 97.7 H 40.0-77.0 % Lymphocytes (%) (Auto) 0.6 L 21.0-51.0 % Monocytes (%) (Auto) 1.0 L 3.0-13.0 % Eosinophils (%) (Auto) 0.0 0.0-8.0 % Basophils (%) (Auto) 0.2 0.0-5.0 % Neutrophils # (Auto) 13.3 H 1.8-7.7 K/uL Lymphocytes # (Auto) 0.1 L 1.0-4.8 K/uL Monocytes # (Auto) 0.1 0.1-1.0 K/uL Eosinophils # (Auto) 0.00 0.00-0.70 K/uL Basophils # (Auto) 0.03 0.00-0.20 K/uL Absolute Immature Granulocyte (auto 0.07 0-1 K/uL Nucleated Red Blood Cells 1.1 H 0.0-0.19 % Chemistry Labs: Test 04/18/25 10:02 04/18/25 05:15 04/18/25 04:40 04/17/25 05:20 Range/Units Lactic Acid Level 4.8 H 0.8-2.5 mmol/L Ammonia < 10 L 11-32 umol/L Whole Blood Glucose 170 H 70-110 MG/DL Sodium Level 139 136-145 mmol/L Potassium Level 3.9 3.5-5.1 mmol/L Chloride Level 98 L 101-111 mmol/L Carbon Dioxide Level 22 21-32 mmol/L Blood Urea Nitrogen 121 *H 7-18 mg/dL Creatinine 3.9 H 0.5-1.0 mg/dL Glomerular Filtration Rate Calc 11 >90 mL/min Random Glucose 207 H 70-105 mg/dL Total Calcium 7.8 L 8.5-10.1 mg/dL Phosphorus Level 9.5 H 2.5-4.9 mg/dL Total Bilirubin 1.9 H 0.2-1.0 mg/dL Aspartate Amino Transf (AST/SGOT) 32 10-37 U/L Alanine Aminotransferase (ALT/SGPT) 76 12-78 U/L Alkaline Phosphatase 143 H 50-136 U/L Total Protein 4.1 L 6.0-8.3 g/dL Albumin 1.7 L 3.5-5.0 g/dL Magnesium Level 1.90 1.80-2.40 mg/dL B-Type Natriuretic Peptide 45 0-100 pg/mL Coagulation Labs: Test 04/18/25 04:00 Range/Units Prothrombin Time 13.6 H 9.6-11.6 SEC Prothromb Time International Ratio 1.32 H 0.85-1.15 DIAGNOSTICS / RADIOLOGY: [place] [address] IMAGING REPORT Signed PATIENT: LORE OCONNELL MR#: [id number] : 1940 SEX: F AGE: 84 LOCATION: [facility] ORDER 2300 STATUS: ADM IN REPORT#: [id number] SERVICE 0600 REASON: Resp failure ORDERING PHYSICIAN: PACHECO TOBAR PROCEDURE: CXR1VW - CHEST 1VW EXAM: CR Chest, 1 View. CLINICAL HISTORY: Resp failure COMPARISON: 04/17/2025 FINDINGS: Right PICC catheter with the tip in the superior vena cava. A nasogastric tube is seen with the tip likely in the gastroesophageal junction; recommend further advancement of the tube for optimal positioning. LUNGS: Interval improvement in bilateral perihilar and basilar airspace disease. PLEURAL SPACES: No pneumothorax. Interval improvement in bilateral pleural effusion, with residual small left pleural effusion with adjacent lung atelectasis. MEDIASTINUM: Mild stable cardiomegaly. Interval reduction in pulmonary vascular congestion. Atherosclerotic aortic arch. Left pacemaker with intact leads in place. BONES: No aggressive appearing osseous lesion seen. IMPRESSION: 1. Interval improvement in bilateral perihilar and basilar airspace disease. 2. Interval improvement in bilateral pleural effusion with residual small left pleural effusion, with adjacent lung atelectasis. 3. Right PICC catheter with tip in the superior vena cava. 4. Nasogastric tube tip likely at the gastroesophageal junction; recommend further advancement for optimal positioning. /[place] DICTATED BY: SHAKIR GARCIA Jr., MD DATE: 04/18/251058 ELECTRONICALLY SIGNED BY: SHAKIR GARCIA Jr., MD DATE: 04/18/251058 PATIENT: LORE OCONNELL MR#: [id number] : 1940 SEX: F AGE: 84 LOCATION: [facility] ORDER 2300 STATUS: ADM IN REPORT#: [id number] SERVICE 0600 REASON: SOB ORDERING PHYSICIAN: BOYD GUERRA PAC PROCEDURE: CXR1VW - CHEST 1VW EXAM: CR Chest, 1 View. CLINICAL HISTORY: SOB COMPARISON: 04/16/2025 FINDINGS: Right-sided PICC catheter with tip in the superior vena cava. LUNGS: Mild interval increase in right pleural effusion with adjacent lung atelectasis. Stable small left pleural effusion. Persistent patchy areas of ground-glass opacities in the right parahilar region are due to probable pulmonary edema. PLEURAL SPACES: No pneumothorax. MEDIASTINUM: Mild stable cardiomegaly with bilateral pulmonary congestion. A left pacemaker device with intact leads in situ. Atherosclerotic aortic knob. BONES: No acute osseous abnormality. IMPRESSION: 1. Mild interval increase in right pleural effusion with adjacent lung atelectasis. Stable small left pleural effusion. 2. Mild stable cardiomegaly with bilateral pulmonary congestion. Persistent patchy areas of groundglass opacities in the right parahilar region, likely due to pulmonary edema. 3. Right-sided PICC catheter with tip in the superior vena cava. Compared to the prior study, there is an interval progression of right pleural effusion with adjacent lung atelectasis. /[place] DICTATED BY: SHAKIR GARCIA Jr., MD DATE: 04/18/251109 ELECTRONICALLY SIGNED BY: SHAKIR GARCIA Jr., MD DATE: 04/18/251109 PATIENT: LORE OCONNELL MR#: [id number] : 1940 SEX: F AGE: 84 LOCATION: [facility] ORDER 2 STATUS: ADM IN REPORT#: [id number] SERVICE REASON: SOB ORDERING PHYSICIAN: BOYD GUERRA PAC PROCEDURE: CXR1VW - CHEST 1VW EXAM: CR Chest, single view. CLINICAL HISTORY: Shortness of breath. COMPARISON: Prior chest radiograph dated April 15, 2025 FINDINGS: Right-sided central venous catheter with tip in the superior vena cava. Mild cardiomegaly with bilateral pulmonary congestion. Mild bilateral pleural effusion is left more than right with adjacent lung atelectasis. Patchy areas of groundglass opacities in the right parahilar region are probable pulmonary edema. A battery pack is in the left anterior chest wall with pacemaker wires in the right atrium and ventricles. No acute osseous abnormality. Degenerative changes in the mid and lower thoracic spine. IMPRESSION: Right-sided central venous catheter with tip in the superior vena cava. Mild cardiomegaly with bilateral pulmonary congestion. Mild bilateral pleural effusion is left more than right with adjacent lung atelectasis. Patchy areas of groundglass opacities in the right parahilar region are probable pulmonary edema. A battery pack is in the left anterior chest wall with pacemaker wires in the right atrium and ventricles. Compared to the prior study, there is an interval progression of bilateral pleural effusion development of groundglass opacities in the right parahilar region. /[place] DICTATED BY: SHAKIR GARCIA Jr., MD DATE: 04/16/25904 ELECTRONICALLY SIGNED BY: SHAKIR GARCIA Jr., MD DATE: 04/16/25904 PATIENT: LORE OCONNELL MR#: [id number] : 1940 SEX: F AGE: 84 LOCATION: [facility] ORDER 8 STATUS: ADM IN REPORT#: [id number] SERVICE REASON: bipap support ORDERING PHYSICIAN: BOYD GUERRA PAC PROCEDURE: CXR1VW - CHEST 1VW EXAM: CR CHEST, 1 VIEW CLINICAL HISTORY: bipap support COMPARISON: CR: CHEST 1VW dated 04/13/2025 06:08 AM EST: TECHNIQUE: Single frontal radiograph of the chest was obtained. FINDINGS: Lines/Devices: A pacemaker is seen with intact leads. The previously noted endotracheal tube is not seen, mostly removed. Lungs: stationary course as regards the previously noted central pulmonary congestion seen in both lungs. Blunted left costophrenic angle still noted, suggestive of minimal pleural effusion. There is no pneumothorax. Mediastinum and cardiovascular structures: Still noted mild cardiomegaly. Prominent aortic calcifications with atheromatous calcifications. The central airway and mediastinal contours are unremarkable. Bones and soft tissues: Unremarkable. IMPRESSION: 1. Mild reduction in the previously noted central pulmonary venous congestion. 2. Blunted left costophrenic angle, suggestive of minimal pleural effusion. 3. Mild cardiomegaly. 4. Prominent aortic calcifications with atheromatous calcifications. 5.As compared to the previous CR: CHEST 1VW dated 04/13/2025 06:08 AM EST, stationary course as regards the previously noted central pulmonary congestion as well as mild cardiomegaly, the previously noted endotracheal tube is not seen in today's study, likely surgically removed .No new findings /[place] DICTATED BY: HENRIK FOX MD DATE: 04/15/252249 ELECTRONICALLY SIGNED BY: HENRIK FOX MD DATE: 04/15/252249 PATIENT: LORE OCONNELL MR#: [id number] : 1940 SEX: F AGE: 84 LOCATION: [facility] ORDER 99 STATUS: ADM IN REPORT#: [id number] SERVICE 9 REASON: chf ORDERING PHYSICIAN: SHADE YOUNGBLOOD MD PROCEDURE: CXR1VW - CHEST 1VW EXAM: CR Chest, 1 View. CLINICAL HISTORY: CHF COMPARISON: 04/12/2025 FINDINGS: The ET tube tip is 4.4 cm away from the juanito. The nasogastric tube is seen below the left hemidiaphragm. LUNGS: Left basilar atelectasis. Otherwise, the lungs are essentially clear. PLEURAL SPACES: No pneumothorax. Stable small left pleural effusion. MEDIASTINUM: Mild cardiomegaly with interval reduction in the central pulmonary venous congestion in both lungs. The pacemaker leads overlie the right atrium and right ventricle. BONES: No acute osseous abnormality. IMPRESSION: 1. Mild cardiomegaly with interval reduction in central pulmonary venous congestion. 2. Stable small left pleural effusion. 3. ET tube tip 4.4 cm from juanito. 4. Nasogastric tube below the left hemidiaphragm. /[place] DICTATED BY: SHAKIR GARCIA Jr., MD DATE: 04/13/251035 ELECTRONICALLY SIGNED BY: SHAKIR GARCIA Jr., MD DATE: 04/13/251035 PATIENT: LORE OCONNELL MR#: [id number] : 1940 SEX: F AGE: 84 LOCATION: [facility] ORDER 99 STATUS: ADM IN REPORT#: [id number] SERVICE 9 REASON: PNA ORDERING PHYSICIAN: ZENOBIA PEREZ MD PROCEDURE: CXR1VW - CHEST 1VW CHEST 1VW REASON: PNA COMPARISON: Prior chest radiograph from 04/09/2025 is available. FINDINGS: Single view of the chest was obtained. The study is limited due to poor inspiratory radiograph patient is rotated.. The lung [place] are clear. There is no evidence of any vascular congestion. There is mild cardiomegaly with left ventricular contour. There is a support lines including endotracheal tube and nasogastric tube are in satisfactory position. There is a left-sided pacemaker with lead in right atrium and right ventricle.. Mediastinum and bony thorax appear unremarkable. The bony thorax demonstrate mild osteopenia. IMPRESSION: 1. Mild cardiomegaly 2. Support lines satisfactory position 3. Limited study with no evidence of airspace consolidation or pulmonary venous congestion. DICTATED BY: JADEN CHAVIRA MD DATE: 04/10/251251 ELECTRONICALLY SIGNED BY: JADEN CHAVIRA MD DATE: 04/10/251255 PATIENT: LORE OCONNELL MR#: [id number] : 1940 SEX: F AGE: 84 LOCATION: [facility] ORDER 6 STATUS: ADM IN REPORT#: [id number] SERVICE 2 REASON: septic/SOB ORDERING PHYSICIAN: ZENOBIA PEREZ MD PROCEDURE: CAP WO - CT CHEST/ABD/PELV W/O CONTRAST ADDENDUM REPORT ADDENDUM: Results were shared by telephone at 09:07 PM on 04-08-2025 and acknowledged by the Patient's Nurse Ms. Sue Quinones /[place] EXAM: CT Chest, Abdomen and Pelvis without Intravenous Contrast CLINICAL HISTORY: evaluation of sepsis. TECHNIQUE: Axial computed tomography images of the chest, abdomen and pelvis without intravenous contrast. Dose reduction technique was used including one or more of the following: automated exposure control, adjustment of mA and kV according to patient size, and/or iterative reconstruction. Total exam DLP is 1117 mGy x cm. CONTRAST: None. COMPARISON: Prior chest radiograph dated 04/08/2025, acquired at 04:52 hours. FINDINGS: CHEST: LUNGS: Endotracheal tube with its tip positioned 3.5 cm short of juanito. Moderate sized bilateral pleural effusions with atelectasis/consolidation of the lung bases. Multifocal areas of ground-glass opacities, mosaic attenuation are present in the remainder of the lung parenchyma bilaterally. PLEURAL SPACES: Moderate sized bilateral pleural effusions. No pneumothorax. HEART AND MEDIASTINUM: Left chest wall pacemaker with electrodes terminating in the lumen of the coronary sinus and the right heart chambers. Atheromatous calcification of the aortic arch and the coronary arteries. Right sided PICC line visualized with its tip terminating in the right brachiocephalic vein. Feeding tube visualized with its tip terminating at the gastroesophageal junction. Mild cardiomegaly. Coronary arterial calcifications present. Mitral and aortic valve annulus calcifications. No significant pericardial effusion. LYMPH NODES: No lymphadenopathy. ABDOMEN AND PELVIS: LIVER: Ill-defined hypodense area measuring 2 x 2.1 cm in the segment VII of the subcapsular region of the right hepatic lobe, without areas of calcification or fat in it. GALLBLADDER AND BILE DUCTS: Gallbladder is surgically absent. No biliary ductal dilatation. PANCREAS: Pancreas is atrophic. No pancreatic ductal dilatation or calculi. SPLEEN: Spleen is atrophic and shrunken with areas of capsular calcifications. ADRENAL GLANDS: Unremarkable. KIDNEYS, URETERS, AND BLADDER: Bilateral intrarenal segmental arterial calcifications. Multiple right sided renal calculi, measuring up to 4 mm. A Mcdowell's catheter is appropriately positioned in the bladder lumen. No hydronephrosis. No ureteral or bladder calculi. STOMACH AND BOWEL: Evidence of prior surgical intervention involving the stomach, incompletely evaluated due to lack of optimal luminal distension. Gastric bypass surgery status with appropriate position of the gastrojejunal anastomosis. No obstruction. No wall thickening. No CT evidence of colitis or acute diverticulitis. APPENDIX: No CT evidence for appendicitis. PERITONEUM: No free fluid. No free air. LYMPH NODES: No lymphadenopathy. REPRODUCTIVE: Uterus is not distinctly visualized. VASCULATURE: The abdominal aorta demonstrates atheromatous calcification without aneurysm or dissection. BONES AND SOFT TISSUES: Diffuse body wall edema. Right retroperitoneal space hyperdense collection, measuring approximately 14 x 7 x 25 cm, visualized on the anterior aspect of the iliopsoas. It is extending toward the right groin. The right iliacus muscle also appears bulky with similar hyperdense contents, likely representing hematoma. The collection is visualized in the retroperitoneal compartment and is displacing the right kidney anteriorly. Severe osteopenia. Chronic appearing compression deformities of multiple thoracolumbar vertebrae, including T6, T8, T9, T11, T1. The maximum vertebral height loss is visualized at T11 level with increased thoracolumbar junction kyphosis. Grade I anterolisthesis of L4 over L5 without spondylolysis. Dextroscoliosis of the thoracolumbar spine curvature. IMPRESSION: 1. Findings consistent with aspiration pneumonitis. Compared with the prior chest radiograph dated 04/08/2025, acquired at 04:52 hours, the pulmonary parenchymal findings are stable. Right PICC line and the feeding tube need to be repositioned. 2. Large right retroperitoneal hematoma extending along the iliopsoas and into the right iliacus, displacing the right kidney. 3. Several stable chronic and incidental findings are noted, as detailed in the body of the report. /[place] DICTATED BY: HENRIK FOX MD DATE: 04/08/252128 ELECTRONICALLY SIGNED BY: DATE: EXAM: CT Chest, Abdomen and Pelvis without Intravenous Contrast CLINICAL HISTORY: evaluation of sepsis. TECHNIQUE: Axial computed tomography images of the chest, abdomen and pelvis without intravenous contrast. Dose reduction technique was used including one or more of the following: automated exposure control, adjustment of mA and kV according to patient size, and/or iterative reconstruction. Total exam DLP is 1117 mGy x cm. CONTRAST: None. COMPARISON: Prior chest radiograph dated 04/08/2025, acquired at 04:52 hours. FINDINGS: CHEST: LUNGS: Endotracheal tube with its tip positioned 3.5 cm short of juanito. Moderate sized bilateral pleural effusions with atelectasis/consolidation of the lung bases. Multifocal areas of ground-glass opacities, mosaic attenuation are present in the remainder of the lung parenchyma bilaterally. PLEURAL SPACES: Moderate sized bilateral pleural effusions. No pneumothorax. HEART AND MEDIASTINUM: Left chest wall pacemaker with electrodes terminating in the lumen of the coronary sinus and the right heart chambers. Atheromatous calcification of the aortic arch and the coronary arteries. Right sided PICC line visualized with its tip terminating in the right brachiocephalic vein. Feeding tube visualized with its tip terminating at the gastroesophageal junction. Mild cardiomegaly. Coronary arterial calcifications present. Mitral and aortic valve annulus calcifications. No significant pericardial effusion. LYMPH NODES: No lymphadenopathy. ABDOMEN AND PELVIS: LIVER: Ill-defined hypodense area measuring 2 x 2.1 cm in the segment VII of the subcapsular region of the right hepatic lobe, without areas of calcification or fat in it. GALLBLADDER AND BILE DUCTS: Gallbladder is surgically absent. No biliary ductal dilatation. PANCREAS: Pancreas is atrophic. No pancreatic ductal dilatation or calculi. SPLEEN: Spleen is atrophic and shrunken with areas of capsular calcifications. ADRENAL GLANDS: Unremarkable. KIDNEYS, URETERS, AND BLADDER: Bilateral intrarenal segmental arterial calcifications. Multiple right sided renal calculi, measuring up to 4 mm. A Mcdowell's catheter is appropriately positioned in the bladder lumen. No hydronephrosis. No ureteral or bladder calculi. STOMACH AND BOWEL: Evidence of prior surgical intervention involving the stomach, incompletely evaluated due to lack of optimal luminal distension. Gastric bypass surgery status with appropriate position of the gastrojejunal anastomosis. No obstruction. No wall thickening. No CT evidence of colitis or acute diverticulitis. APPENDIX: No CT evidence for appendicitis. PERITONEUM: No free fluid. No free air. LYMPH NODES: No lymphadenopathy. REPRODUCTIVE: Uterus is not distinctly visualized. VASCULATURE: The abdominal aorta demonstrates atheromatous calcification without aneurysm or dissection. BONES AND SOFT TISSUES: Diffuse body wall edema. Right retroperitoneal space hyperdense collection, measuring approximately 14 x 7 x 25 cm, visualized on the anterior aspect of the iliopsoas. It is extending toward the right groin. The right iliacus muscle also appears bulky with similar hyperdense contents, likely representing hematoma. The collection is visualized in the retroperitoneal compartment and is displacing the right kidney anteriorly. Severe osteopenia. Chronic appearing compression deformities of multiple thoracolumbar vertebrae, including T6, T8, T9, T11, T1. The maximum vertebral height loss is visualized at T11 level with increased thoracolumbar junction kyphosis. Grade I anterolisthesis of L4 over L5 without spondylolysis. Dextroscoliosis of the thoracolumbar spine curvature. IMPRESSION: 1. Findings consistent with aspiration pneumonitis. Compared with the prior chest radiograph dated 04/08/2025, acquired at 04:52 hours, the pulmonary parenchymal findings are stable. Right PICC line and the feeding tube need to be repositioned. 2. Large right retroperitoneal hematoma extending along the iliopsoas and into the right iliacus, displacing the right kidney. 3. Several stable chronic and incidental findings are noted, as detailed in the body of the report. /[place] DICTATED BY: HENRIK FOX MD DATE: 04/08/252056 ELECTRONICALLY SIGNED BY: HENRIK FOX MD DATE: 04/08/252056 PATIENT: LORE OCONNELL MR#: [id number] : 1940 SEX: F AGE: 84 LOCATION: [facility] ORDER 1 STATUS: ADM IN REPORT#: [id number] SERVICE 0 REASON: HF ORDERING PHYSICIAN: BOYD GUERRA PROCEDURE: ECHO CMP - ECHO 2-D COMPLETE APPROVED REPORT EXAM: Two-dimensional and M-mode echocardiogram with Doppler and color Doppler. INDICATION ICD: Elevated liver enzymes 2D Dimensions RVDd 5.0 cm LVEF(%) 54.9 (>50%) LA ESV INDEX (BP) 85.96 mL/m2 IVSd 0.8 (0.7-1.1cm) FS(%) 29 % LVDd 5.1 (3.8-5.6cm) LA (2D) 6.2 (1.6-4.0cm) PWd 1.2 (0.7-1.1cm) Ao Root(2D) 3.0 (2.0-3.7cm) IVSs 1.0 cm LVOT diam 2.2 (1.8-2.4cm) LVDs 3.6 (2.5-4.0cm) PWs 1.5 cm M-Mode Dimensions EPSS 0.9 cm LA (MM) 7.0 (1.6-4.0cm) Ao Root(MM) 3.4 (2.0-3.7cm) Aortic Valve AoV Vmax 1.7 m/s Ao Peak GR 11.9 mmHg LVOT Vmax 0.8 m/s AoV VTI 0.3 m Ao Mean GR 6.7 mmHg LVOT VTI 0.12 m VERONICA (VMAX) 1.64 cm2 Al P1/2T 575 ms VERONICA (VTI) 1.5 cm2 Mitral Valve MV E Vmax 81.2 cm/s DECEL Time 181 ms MV A Vmax 73.1 cm/s P 1/2 T 42 ms E/A ratio 1.1 MVA (PHT) 5.2 cm2 TDI E/E' Medial 14.3 E/E' Lateral 13.4 Medial E' Peak V 5.67 cm/s Lateral E' Peak V 6.04 cm/s Pulmonary Valve PV Vmax 1.2 m/s PI End Ximena. Jonel 142.2 cm/s PV Mean GR 2.7 mmHg PV Peak GR 5.6 mmHg Tricuspid Valve TR Vmax 2.6 m/s RAP (EST) 3 mmHg RVSP 30.0 mmHg TR Peak GR 27.0 mmHg Left Ventricle The left ventricle is normal size. There is global hypokinesis of the left ventricle. There is normal left ventricular wall thickness. LVEF is 30-35%. E/A flow is fused. Right Ventricle The right ventricle is severely dilated. Right ventricular systolic function is mildly reduced. Device lead is present in the right ventricle. Atria The left atrium is severely dilated. LASVI 86mL/m The interatrial septum is intact with no evidence for an atrial septal defect by color. Evidence of increased left atrial pressure with the atrial septum bowed to the right. The right atrium is severely dilated. Aortic Valve Aortic valve is trileaflet, mildly sclerotic and thickened but opens well. Mild aortic regurgitation is present. There is no aortic valvular stenosis. Mitral Valve The mitral valve is thickened. There is mild mitral valve regurgitation noted. There is no mitral valve stenosis. Tricuspid Valve The tricuspid valve is normal in structure. There is no tricuspid valve regurgitation noted. RVSP 30 mmHg Pulmonic Valve The pulmonary valve is normal in structure. There is trace of pulmonic valvular regurgitation. Great Vessels The aortic root is normal in size. The IVC is normal in size and collapses >50% with inspiration. Pericardium There is small pericardial effusion seen posteriorly. Other Information Quality : Adequate Rhythm : NSR Conclusion There is global hypokinesis of the left ventricle. LVEF is 30-35%. The right ventricle is severely dilated and hypokinetic. Device lead is present in the right ventricle. Left atrium is severely dilated. LASVI 86mL/m. No atrial septal defect by color. Evidence of increased left atrial pressure with the atrial septum bowed to the right. Mild aortic regurgitation. Thckened mitral valve leaflets. Mild mitral valve regurgitation. Small pericardial effusion seen posteriorly. DICTATED BY: KASH DUONG DO DATE: 04/07/25 0950 ELECTRONICALLY SIGNED BY: KASH DUONG DO DATE: 04/07/25 1672 ASSESSMENT: Acute on chronic kidney disease Anemia Retroperitoneal hemorrhage newly diagnosed via CT scan of the abdomen Acute hypoxic respiratory failure present on admission currently on mechanical ventilatory support via endotracheal tube Severe sepsis with shock Severe metabolic acidosis Hospital-acquired pneumonia Acute complicated cystitis Atrial fibrillation on chronic anticoagulation therapy Dilated cardiomyopathy ejection fraction 35-40% with moderate pulmonary hypotension Remote CVA Hx of Right lower extremity DVT History of right TKA Suspected AICD malfunction Status post AICD PLAN: Labs, diagnostic, radiologic exams reviewed and interpreted by myself and supervising physician. We have reviewed external records in detail There is no need for emergent renal replacement therapy at this time However, if renal function continues to worsen, patient may ultimately require dialysis Dialysis remains a high-risk procedure due to patient's underlying condition This is discussed with family at the bedside, multiple questions were answered Continue with diuretics Require close monitoring of renal function and electrolytes Order CBC, CMP, and electrolytes in am BiPAP, for respiratory distress Continue with IV pressors, Continue with antibiotics Monitor blood pressure adjust medication doses as needed Avoid hypotensive episodes May use Dilaudid 0.5 mg IV every 6 hours as needed for severe pain Monitor blood sugars Strict intake, output, and daily weight should be monitored Please renally adjust medications Avoid nephrotoxic and nonsteroidal drugs Avoid contrast if possible Will continue to monitor renal function, anemia, electrolytes Treatment plan discussed with patient Questions were answered We have discussed with the other team physicians in detail about the care plan We will continue to monitor the patient closely Total critical care time spent with patient, nursing staff, critical care team over 35 minutes ATTESTATION BY PHYSICIAN I have seen and examined the patient. I reviewed the documentation, medical decision making, and treatment plan as noted by the mid-level provider above. I agree with the findings and plan of care. BREANA UYSUF MD, [facility] Apr 18, 2025 13:14
--- NOTE | 2025-04-18 17:00 | PN ---
The patient is an 84-year-old female with a significant medical history of recurrent UTIs, chronic anemia, CKD, atrial fibrillation, dilated cardiomyopathy (EF 35% by echo; prior stress test EF 60%), biventricular pacemaker/AICD, and tolerance to all oral anticoagulants (warfarin, apixaban, rivaroxaban, dabigatran), remote CVA, and recent left knee replacement revision following a fall. She resides in a longterm facility. She presented to the ED with shortness of breaths and chest pain, progressing to acute hypoxic respiratory failure requiring intubation. Workup revealed septic shock with lactic acid greater than 6, suspected urinary source, and Sabrina positive urine. IV fluids, vasopressors (Levophed), and broad-spectrum antibiotics (doxycycline plus linezolid) were started. She was noted to be anemic and required PRBC transfusion. A right retroperitoneal hematoma was later identified; anticoagulation is currently held. The patient is now extubated on on BiPAP 04/20 FiO2 75%, hemodynamically marginal, but improved overall. She remains in rate controlled AFib. Hematology-Oncology is consulted for evaluation of anemia management in the setting of sepsis, CKD, blood loss, and recent hematoma. 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) Dilated cardiomyopathy, EF 35% Remote CVA Recurrent urinary tract infections CHF with recent biventricular pacemaker/AICD Right retroperitoneal hematoma Recent left knee revision (hardware replacement after fall) PSH: As mentioned above SH: Noncontributory FH: Noncontributory ALLERGIES: Coded Allergies: codeine (Unverified Allergy, Unknown, HALLUCINATION, 03/16/25) CURRENT MEDS: Current Medications Medications (Trade) Dose Ordered Sig/Asif Route PRN Reason Start Time Stop Time Status Last Admin Metolazone (zarOXOlyn) 5 mg [id number] PO 04/17/25 06:30 05/17/25 06:29 04/17/25 08:03 REVIEW OF SYSTEMS CONSTITUTIONAL: FEVER HEENT: JAUNDICE; No JAUNDICE; SORE THROAT; No SORE THROAT; SINUS PRESSURE; No S INUS PRESSURE, No VISION CHANGES RESPIRATORY: SHORTNESS OF BREATH CARDIOVASCULAR: PALPATIONS; No PALPATIONS, No DYSPNEA ON EXERTION, No SYNCOPE GASTROINTESTINAL: No NAUSEA, No VOMITING, No DIARRHEA, No DYSPHAGIA, No CONSTIPATION, No ABDOMINAL PAIN, No HEMATEMESIS, No HEMATOCHEZIA, No MELENA GENITOURINARY: No DYSURIA, No HEMATURIA HEMATOLOGIC/LYMPHATIC: No EASY BRUISING, No CERVICAL ADENOPATHY, No AXILLARY ADENOPATHY, No INGUINAL ADENOPATHY MUSCULOSKELETAL: BONE PAIN; No BONE PAIN, No MASS; NORMAL RANGE OF MOTION; No N ORMAL RANGE OF MOTION SKIN/BREASTS: BREAST MASS; No BREAST MASS, No NIPPLE INVERSION, No RASH NEUROLOGICAL: No WEAKNESS-EXTREMETIES, No DIPLOPIA, No NUMBNESS, No TINGLING PSYCHOLOGICAL: No SUICIDAL IDEATION PHYSICAL EXAM GENERAL: acute respiratory distress. VITAL SIGNS: Reviewed HEENT: The sclerae are clear. The pupils are equal and reactive to light. The oropharyngeal cavity is within normal limits. NECK: Supple without lymphadenopathy. CHEST: Crackles to the lung bilaterally HEART: Sounds are regular and rhythmic. ABDOMEN: No guarding or rigidity. Bowel sounds positive. EXTREMITIES: pitting edema. No petechial lesions or bruises. SKIN: No bruises, rash, or petechial lesions. NEUROLOGICAL: Patient is not alert nor oriented. IMPRESSION Chronic anemia. Hemoglobin level is stable at 8.5 g/deciliter. Sepsis with lactic acidosis Retroperitoneal hematoma CKD with acute on chronic renal failure Thrombocytopenia AFib with intolerance to all oral anticoagulants Acute hypoxic respiratory failure PLAN 1. Patient with severe failure to thrive. Change the family make the patient DNR/DNI. 2. Hemoglobin level is 8.5 g/deciliter. 3. Patient with manual platelet count within normal. 4. Continue care as per merchandising specialist 5. Will follow-up with results of CBC in the morning. Vitals/Labs Vital Signs Date Time Temp Pulse Resp B/P (MAP) Pulse Ox O2 Delivery O2 Flow Rate FiO2 04/18/25 16:00 98 Bi-PAP+ 80 04/18/25 16:00 91 18 111/59 (76) 04/18/25 12:00 98.2 04/16/25 14:32 5.0 Laboratory Tests 04/17/25 22:28 04/18/25 04:40 Medications Current Medications Ceftriaxone Sodium 1 gm ONCE ONCE IVPB Last administered on 04/06/25at 10:33; Start 04/06/25 at 08:30; Stop 04/06/25 at 08:32; Status DC Azithromycin 250 ml @ 250 mls/hr ONCE IVPB Last administered on 04/06/25at 10:45; Start 04/06/25 at 09:00; Stop 04/06/25 at 10:00; Status DC Albuterol 2 udvial ONCE ONCE IH Last administered on 04/06/25at 10:26; Start 04/06/25 at 08:30; Stop 04/06/25 at 08:32; Status DC Methylprednisolone Sodium Succinate 125 mg ONCE ONCE IVP Last administered on 04/06/25at 10:48; Start 04/06/25 at 08:30; Stop 04/06/25 at 08:32; Status DC Sodium Chloride 1,000 ml @ 0 mls/hr ONCE ONCE IV Last administered on 04/06/25at 08:30; Start 04/06/25 at 08:30; Stop 04/06/25 at 08:32; Status DC Diazepam 5 mg Q4H PRN IV Last administered on 04/07/25at 15:28; Start 04/06/25 at 09:00; Stop 04/12/25 at 16:50; Status DC Diazepam 10 mg STK-MED ONCE .ROUTE; Start 04/06/25 at 08:35; Stop 04/06/25 at 08:35; Status DC Ketamine HCl 50 mg STK-MED ONCE .ROUTE; Start 04/06/25 at 08:47; Stop 04/06/25 at 08:47; Status DC Norepinephrine 250 ml @ As Directed STK-MED ONCE IV; Start 04/06/25 at 08:59; Stop 04/06/25 at 08:59; Status DC Fentanyl Citrate 100 ml @ 2.5 mls/hr PROTOCOL IV Last administered on 04/08/25at 01:39; Start 04/06/25 at 09:30; Stop 04/08/25 at 01:51; Status DC Midazolam HCl 100 ml ONCE ONCE IV Last administered on 04/06/25at 09:31; Start 04/06/25 at 09:30; Stop 04/06/25 at 09:31; Status DC Vancomycin HCl 1 each AD IV; Start 04/06/25 at 10:00; Stop 04/09/25 at 13:28; Status DC Albuterol 1 UDVIAL [id number] IH; Start 04/06/25 at 12:00; Stop 04/06/25 at 11:12; Status DC Pharmacy Profile Note 1 each Q12H9 [facility] [place] Start 04/06/25 at 21:00; Stop 04/06/25 at 10:19; Status DC Sodium Chloride 1,000 ml @ 100 mls/hr Q10H IV Last administered on 04/06/25at 10:51; Start 04/06/25 at 10:00; Stop 04/06/25 at 11:12; Status DC Norepinephrine 250 ml @ 0 mls/hr PROTOCOL IV Last administered on 04/06/25at 21:18; Start 04/06/25 at 10:30; Stop 04/06/25 at 21:28; Status DC Vancomycin HCl 250 ml @ 125 mls/hr ONCE ONCE IV Last administered on 04/06/25at 14:30; Start 04/06/25 at 10:30; Stop 04/06/25 at 12:29; Status DC Meropenem 1 gm Q12H IVPB Last administered on 04/07/25at 23:48; Start 04/06/25 at 11:00; Stop 04/08/25 at 07:56; Status DC Ketamine HCl 100 mg ONCE ONCE IV Last administered on 04/06/25at 10:28; Start 04/06/25 at 08:50; Stop 04/06/25 at 10:19; Status DC Vancomycin HCl 750 mg Q24H IVPB Last administered on 04/07/25at 08:58; Start 04/07/25 at 09:00; Stop 04/08/25 at 07:56; Status DC Sodium Chloride 1,000 ml @ 100 mls/hr Q10H IV; Start 04/06/25 at 11:30; Stop 04/07/25 at 12:44; Status DC Dextrose 50 ml STK-MED ONCE IV Last administered on 04/06/25at 16:24; Start 04/06/25 at 16:22; Stop 04/06/25 at 16:22; Status DC Dextrose 50 ml AD PRN IV Last administered on 04/07/25at 16:56; Start 04/06/25 at 16:30; Stop 05/06/25 at 16:29 Glucagon 1 mg AD PRN IM; Start 04/06/25 at 16:30; Stop 05/06/25 at 16:29 Lactated Ringer's 1,000 ml BOLUS IV; Start 04/06/25 at 16:30; Stop 04/08/25 at 07:52; Status DC Enoxaparin Sodium 30 mg DAILY SQ; Start 04/07/25 at 08:00; Stop 04/07/25 at 00:16; Status DC Sodium Bicarbonate 100 meq ONCE ONCE IV Last administered on 04/06/25at 17:57; Start 04/06/25 at 18:00; Stop 04/06/25 at 18:01; Status DC Dexmedetomidine/ Sodium Chloride 400 mcg PROTOCOL IV Last administered on 04/09/25at 09:22; Start 04/06/25 at 18:30; Stop 04/10/25 at 11:09; Status DC Dexmedetomidine/ Sodium Chloride 400 mcg STK-MED ONCE IV Last administered on 04/06/25at 18:20; Start 04/06/25 at 18:06; Stop 04/06/25 at 18:07; Status DC Dextrose 1,000 ml @ 75 mls/hr [id number] IV Last administered on 04/06/25at 20:29; Start 04/06/25 at 20:30; Stop 04/07/25 at 12:45; Status DC Sodium Chloride 500 ml @ 500 mls/hr Q1H IV Last administered on 04/06/25at 21:19; Start 04/06/25 at 21:00; Stop 04/07/25 at 02:12; Status DC Vasopressin 40 units/Sodium Chloride 40 ml @ 0 mls/hr PROTOCOL IV Last administered on 04/07/25at 04:33; Start 04/06/25 at 21:30; Stop 04/11/25 at 11:49; Status DC Norepinephrine Bitartrate 32 mg/ Sodium Chloride 250 ml @ 0 mls/hr Q0M STAT IV Last administered on 04/06/25at 21:50; Start 04/06/25 at 21:20; Stop 04/06/25 at 21:31; Status DC Phenylephrine HCl 100 mg/Sodium Chloride 250 ml @ 0 mls/hr AD PRN IV; Start 04/06/25 at 22:00; Stop 04/11/25 at 11:49; Status DC Epinephrine HCl 10 mg/Sodium Chloride 250 ml @ 0 mls/hr PROTOCOL IV; Start 04/06/25 at 22:00; Stop 04/11/25 at 11:49; Status DC Ipratropium [place] 0.5 mg [id number] IH; Start 04/07/25 at 22:10; Stop 04/07/25 at 11:41; Status DC Methylprednisolone Sodium Succinate 60 mg Q6H IVP Last administered on 04/08/25at 03:43; Start 04/06/25 at 22:00; Stop 04/08/25 at 07:50; Status DC Albumin Human 50 ml @ 0 mls/hr ONCE ONCE IV Last administered on 04/06/25at 23:13; Start 04/06/25 at 22:30; Stop 04/06/25 at 22:31; Status DC Sodium Bicarbonate 150 meq ONCE ONCE IV Last administered on 04/06/25at 23:13; Start 04/06/25 at 23:00; Stop 04/06/25 at 23:07; Status DC Calcium Gluconate 1 gm ONCE ONCE IV Last administered on 04/06/25at 23:14; Start 04/06/25 at 23:00; Stop 04/06/25 at 23:06; Status DC Ipratropium [place] 0.5 mg STK-MED ONCE IH Last administered on 04/06/25at 23:39; Start 04/06/25 at 22:49; Stop 04/06/25 at 22:49; Status DC Pantoprazole Sodium 40 mg ONCE ONCE IVP Last administered on 04/07/25at 01:02; Start 04/07/25 at 00:30; Stop 04/07/25 at 00:31; Status DC Pantoprazole Sodium 40 mg BID IVP Last administered on 04/18/25at 09:13; Start 04/07/25 at 09:00; Stop 05/07/25 at 08:59 Sodium Bicarbonate 150 meq/Dextrose 1,000 ml @ 50 mls/hr Q20H IVP Last administered on 04/07/25at 01:02; Start 04/07/25 at 00:30; Stop 04/08/25 at 11:02; Status DC Norepinephrine Bitartrate 32 mg/ Sodium Chloride 250 ml @ 0 mls/hr PROTOCOL IV Last administered on 04/08/25at 01:59; Start 04/07/25 at 08:30; Stop 04/18/25 at 09:14; Status DC Sodium Bicarbonate 200 meq ONCE ONCE IV Last administered on 04/07/25at 08:56; Start 04/07/25 at 08:30; Stop 04/07/25 at 08:34; Status DC Sodium Bicarbonate 50 ml @ As Directed STK-MED ONCE .ROUTE; Start 04/07/25 at 08:30; Stop 04/07/25 at 08:30; Status DC Sodium Bicarbonate 100 meq ONCE ONCE IV Last administered on 04/07/25at 08:57; Start 04/07/25 at 09:00; Stop 04/07/25 at 09:01; Status DC Sodium Bicarbonate 50 ml @ As Directed STK-MED ONCE .ROUTE; Start 04/07/25 at 09:04; Stop 04/07/25 at 09:04; Status DC Ipratropium [place] 0.5 mg [id number] IH Last administered on 04/18/25at 11:20; Start 04/07/25 at 12:00; Stop 05/07/25 at 11:59 Sodium Chloride 154 meq/Dextrose 1,000 ml @ 50 mls/hr Q20H IV Last administered on 04/07/25at 13:10; Start 04/07/25 at 13:00; Stop 04/08/25 at 07:58; Status DC Sodium Bicarbonate 200 meq STAT ONCE IV Last administered on 04/07/25at 16:02; Start 04/07/25 at 16:00; Stop 04/07/25 at 16:01; Status DC Midazolam HCl 2 mg Q2HPRN PRN IVP Last administered on 04/12/25at 17:05; Start 04/07/25 at 16:00; Stop 04/14/25 at 13:15; Status DC Sodium Bicarbonate 100 meq ONCE ONCE IV Last administered on 04/07/25at 18:47; Start 04/07/25 at 18:30; Stop 04/07/25 at 18:37; Status DC Calcium Gluconate 1 gm ONCE ONCE IV; Start 04/07/25 at 18:35; Stop 04/07/25 at 18:36; Status UNV Calcium Gluconate 1 gm/Sodium Chloride 100 ml @ 0 mls/hr ONCE ONCE IV Last administered on 04/07/25at 18:53; Start 04/07/25 at 19:00; Stop 04/07/25 at 19:01; Status DC Sodium Bicarbonate 50 meq ONCE ONCE IV Last administered on 04/07/25at 20:57; Start 04/07/25 at 20:00; Stop 04/07/25 at 20:01; Status DC Calcium Gluconate 1 gm ONCE ONCE IV; Start 04/07/25 at 20:00; Stop 04/07/25 at 20:01; Status UNV Calcium Gluconate 1 gm/Sodium Chloride 100 ml @ 100 mls/hr ONCE ONCE IV Last administered on 04/07/25at 20:58; Start 04/07/25 at 20:30; Stop 04/07/25 at 21:29; Status DC Fentanyl/Sodium Chloride 250 ml @ 0.1 mls/hr PROTOCOL IV Last administered on 04/12/25at 01:26; Start 04/08/25 at 02:00; Stop 04/12/25 at 12:22; Status DC Methylprednisolone Sodium Succinate 60 mg Q6H IVP Last administered on 04/11/25at 08:48; Start 04/08/25 at 10:00; Stop 04/11/25 at 11:49; Status DC Vancomycin HCl 750 mg Q48H IVPB Last administered on 04/09/25at 09:56; Start 04/09/25 at 09:00; Stop 04/09/25 at 13:28; Status DC Meropenem 1 gm Q24H IVPB Last administered on 04/10/25at 00:08; Start 04/08/25 at 23:00; Stop 04/10/25 at 22:53; Status DC Pharmacy Profile Note 1 each ONCE MISC; Start 04/08/25 at 08:30; Stop 04/08/25 at 08:51; Status DC Sodium Chloride 1,000 ml @ 500 mls/hr Q2H IV; Start 04/08/25 at 08:30; Stop 04/08/25 at 08:51; Status DC Micafungin Sodium 100 ml @ 100 mls/hr Q24H IV Last administered on 04/08/25at 09:19; Start 04/08/25 at 10:00; Stop 04/09/25 at 09:59; Status DC Sodium Chloride 500 ml @ 500 mls/hr Q1H IV Last administered on 04/08/25at 09:19; Start 04/08/25 at 08:48; Stop 04/08/25 at 11:04; Status DC Rocuronium [place] 50 mg STK-MED ONCE IV; Start 04/06/25 at 10:04; Stop 04/08/25 at 10:05; Status DC Sodium Bicarbonate 150 meq/Dextrose/Water 1,000 ml @ 100 mls/hr Q10H IVP; Start 04/08/25 at 11:00; Stop 04/08/25 at 11:07; Status DC Sodium Bicarbonate 150 meq/Dextrose 1,000 ml @ 100 mls/hr Q10H IVP Last administered on 04/08/25at 21:59; Start 04/08/25 at 11:30; Stop 04/09/25 at 09:46; Status DC Pharmacy Profile Note 1 each ONCE MISC; Start 04/08/25 at 13:30; Stop 04/08/25 at 11:16; Status DC Sodium Chloride 500 ml @ 500 mls/hr Q1H ONCE IV Last administered on 04/08/25at 13:56; Start 04/08/25 at 14:30; Stop 04/08/25 at 15:29; Status DC Sodium Chloride 500 ml @ 500 mls/hr Q1H ONCE IV Last administered on 04/08/25at 18:30; Start 04/08/25 at 19:30; Stop 04/08/25 at 20:29; Status DC Sodium Chloride 500 ml @ 500 mls/hr Q1H ONCE IV Last administered on 04/09/25at 00:43; Start 04/09/25 at 00:30; Stop 04/09/25 at 01:29; Status DC Furosemide 20 mg Q8H IV Last administered on 04/10/25at 08:54; Start 04/08/25 at 15:30; Stop 04/10/25 at 11:09; Status DC Calcium Gluconate 1 gm ONCE IVPB; Start 04/08/25 at 17:00; Stop 05/08/25 at 16:59; Status UNV Calcium Gluconate 1 gm/Sodium Chloride 100 ml @ 0 mls/hr ONCE ONCE IV Last administered on 04/08/25at 17:12; Start 04/08/25 at 17:00; Stop 04/08/25 at 17:01; Status DC Magnesium Sulfate 50 ml @ 0 mls/hr PROTOCOL IV Last administered on 04/12/25at 08:56; Start 04/09/25 at 05:00; Stop 05/09/25 at 04:59 Calcium Gluconate 1 gm PROTOCOL IVPB Last administered on 04/09/25at 05:17; Start 04/09/25 at 05:00; Stop 05/09/25 at 04:59 Sodium Chloride 50 ml AD IV; Start 04/09/25 at 05:00; Stop 04/09/25 at 05:12; Status DC Pharmacy Profile Note 1 each ONCE MISC; Start 04/09/25 at 10:00; Stop 04/09/25 at 09:58; Status DC Dextrose/Sodium Chloride 1,000 ml @ 75 mls/hr [id number] IV Last administered on 04/09/25at 15:00; Start 04/09/25 at 10:00; Stop 04/10/25 at 21:01; Status DC Sodium Chloride 500 ml @ 0 mls/hr Q0M IV Last administered on 04/09/25at 10:04; Start 04/09/25 at 10:00; Stop 04/10/25 at 11:59; Status DC Sodium Chloride 500 ml @ 0 mls/hr Q0M IV; Start 04/09/25 at 14:00; Stop 04/10/25 at 11:59; Status DC Sodium Chloride 500 ml @ 0 mls/hr Q0M IV; Start 04/09/25 at 18:00; Stop 04/10/25 at 11:59; Status DC Sodium Chloride 500 ml @ 0 mls/hr Q0M IV Last administered on 04/09/25at 22:00; Start 04/09/25 at 22:00; Stop 04/10/25 at 11:59; Status DC Sodium Chloride 500 ml @ 0 mls/hr Q0M IV Last administered on 04/10/25at 02:00; Start 04/10/25 at 02:00; Stop 04/10/25 at 11:59; Status DC Sodium Chloride 500 ml @ 0 mls/hr Q0M IV Last administered on 04/10/25at 06:08; Start 04/10/25 at 06:00; Stop 04/10/25 at 11:59; Status DC Pharmacy Profile Note 1 each ONCE MISC; Start 04/09/25 at 13:30; Stop 04/09/25 at 13:37; Status DC Linezolid 300 ml @ 150 mls/hr Q12H IV; Start 04/09/25 at 14:00; Stop 04/09/25 at 16:14; Status DC Linezolid 300 ml @ 150 mls/hr Q12H IV Last administered on 04/18/25at 15:33; Start 04/09/25 at 16:30; Stop 04/19/25 at 16:29 Furosemide 100 mg/ Sodium Chloride 100 ml @ 15 mls/hr PROTOCOL IV Last administered on 04/17/25at 10:00; Start 04/10/25 at 11:30; Stop 04/17/25 at 15:49; Status DC Dobutamine HCl/ Dextrose 250 ml @ 45.518 mls/ hr PROTOCOL IV Last administered on 04/18/25at 12:38; Start 04/10/25 at 11:30; Stop 05/10/25 at 11:29 Doxycycline Hyclate 250 ml @ 125 mls/hr Q12H IV Last administered on 04/18/25at 11:14; Start 04/10/25 at 11:30; Stop 04/20/25 at 11:29 Insulin Human Regular INSULIN SLIDING SCAL... Q6H6 SQ Last administered on 04/16/25at 07:20; Start 04/10/25 at 12:00; Stop 05/10/25 at 11:59 Thiamine HCl 100 mg DAILY IM Last administered on 04/18/25at 09:13; Start 04/11/25 at 09:00; Stop 05/11/25 at 08:59 Vitamin B Complex/ Vit C/Folic Acid 1 cap DAILY PO Last administered on 04/18/25at 09:13; Start 04/11/25 at 09:00; Stop 05/11/25 at 08:59 Meropenem 1 gm Q24H IVPB Last administered on 04/18/25at 02:13; Start 04/11/25 at 02:00; Stop 04/21/25 at 01:59 Iron Sucrose 300 mg/Sodium Chloride 250 ml @ 83 mls/hr ONCE ONCE IV Last administered on 04/11/25at 21:31; Start 04/11/25 at 21:00; Stop 04/12/25 at 00:00; Status DC Epoetin Prashanth-epbx 10,000 unit [id number] SQ Last administered on 04/17/25at 09:30; Start 04/12/25 at 09:00; Stop 05/12/25 at 08:59 Methylprednisolone Sodium Succinate 40 mg Q6H IVP Last administered on 04/13/25at 10:39; Start 04/11/25 at 16:00; Stop 04/13/25 at 16:54; Status DC Fentanyl Citrate 25 mcg Q4H PRN IVP Last administered on 04/12/25at 17:12; Start 04/12/25 at 12:30; Stop 04/14/25 at 13:15; Status DC Artificial Tears 2 DROPS Q4H OU Last administered on 04/14/25at 13:14; Start 04/12/25 at 17:00; Stop 04/14/25 at 13:15; Status DC Ziprasidone 10 mg ONCE ONCE IM; Start 04/12/25 at 17:30; Stop 04/12/25 at 17:19; Status DC Dexmedetomidine/ Sodium Chloride 400 mcg PROTOCOL IV Last administered on 04/12/25at 19:00; Start 04/12/25 at 18:30; Stop 04/14/25 at 13:15; Status DC Methylprednisolone Sodium Succinate 40 mg Q12H9 IVP Last administered on 04/18/25at 09:12; Start 04/13/25 at 21:00; Stop 05/13/25 at 20:59 Gabapentin 100 mg TID PO Last administered on 04/18/25at 09:13; Start 04/14/25 at 14:00; Stop 04/18/25 at 12:07; Status DC Hydromorphone HCl 0.2 mg Q4H PRN IVP; Start 04/14/25 at 11:30; Stop 04/19/25 at 11:29 Lidocaine 1 patch DAILY TP Last administered on 04/18/25at 09:13; Start 04/15/25 at 09:00; Stop 05/15/25 at 08:59 Acetaminophen 650 mg Q6H PRN RC; Start 04/14/25 at 20:30; Stop 05/14/25 at 20:29 Lidocaine 1 patch STK-MED ONCE TP Last administered on 04/14/25at 20:57; Start 04/14/25 at 20:55; Stop 04/14/25 at 20:56; Status DC Acetaminophen 1,000 mg Q6H6 PRN IVPB Last administered on 04/15/25at 12:15; Start 04/15/25 at 12:30; Stop 05/15/25 at 12:29 Bacitracin apply to right and left thi... BID TP Last administered on 04/18/25at 11:15; Start 04/15/25 at 21:00; Stop 05/15/25 at 20:59 Metolazone 5 mg [id number] PO Last administered on 04/18/25at 11:14; Start 04/17/25 at 06:30; Stop 05/17/25 at 06:29 Fluconazole/ Sodium Chloride 100 ml @ 100 mls/hr DAILY IV Last administered on 04/18/25at 09:12; Start 04/17/25 at 14:00; Stop 05/17/25 at 13:59 Bumetanide 2 mg BID IVP Last administered on 04/18/25at 09:13; Start 04/17/25 at 21:00; Stop 05/17/25 at 20:59 Norepinephrine Bitartrate Protocol PROTOCOL IV Last administered on 04/18/25at 15:35; Start 04/17/25 at 19:00; Stop 05/17/25 at 18:59 Gabapentin 100 mg BID PO; Start 04/18/25 at 21:00; Stop 05/14/25 at 20:59 TATUM GILLETTE MD Apr 18, 2025 17:00
--- NOTE | 2025-04-18 19:27 | PN ---
INFECTIOUS DISEASE PROGRESS NOTE Date of Service: Apr 18, 2025 SUBJECTIVE: This is an 84-year-old female patient who was seen and examined at bedside in room 218. Patient remains on continuous BiPAP support but today she is awake and responding to simple questions. WBC this morning has trended down to 13.6 and the hemoglobin is more stable at 8.5 after the 1 unit of PRBC transfused yesterday. Platelets level improved to 119. Continues on linezolid IV, Meropenem and doxycycline. Per report Dr. Rangel from palliative care was able to meet with patient's family. PHYSICAL EXAM EYES: Anicteric. Pupils equal and reactive. HENT: No oral thrush seen, moist Oral mucosa NECK: Supple, no JVD or thyromegaly. LUNGS: On continuous BiPAP support CARDIOVASCULAR: S1, S2 regular. No murmur heard. ABDOMEN: Soft, non tender, bowel sounds present. CENTRAL NERVOUS SYSTEM: Continuous BiPAP support. SKIN: No rashes, no swelling. LYMPHATICS: No peripheral lymphadenopathy MUSCULOSKELETAL: No joint swelling, erythema or tenderness. EXTREMITIES: No cyanosis or clubbing. Generalized edema, improving. BACK: No deformity, no pressure ulcer. GENITOURINARY: No dysuria or hematuria, Mcdowell catheter. Vital Sign (Last 12 Hours) 04/18/25 04/18/25 04/18/25 04/18/25 07:30 07:45 08:00 08:00 Pulse 91 91 91 Resp 15 15 22 B/P (MAP) 100/61 (74) 100/61 (74) 115/64 (81) Pulse Ox 99 99 100 100 O2 Delivery Bi-PAP+ FiO2 65 04/18/25 04/18/25 04/18/25 04/18/25 08:00 08:15 08:30 08:45 Temp 97.9 Pulse 91 91 91 Resp 22 18 17 B/P (MAP) 115/64 (81) 112/66 (81) 98/57 (71) Pulse Ox 100 100 100 O2 Delivery BIPAP FiO2 65 04/18/25 04/18/25 04/18/25 04/18/25 09:00 09:15 09:15 09:30 Pulse 91 91 91 91 Resp 15 21 18 18 B/P (MAP) 97/49 (65) 116/43 (67) 102/58 (73) Pulse Ox 95 95 98 FiO2 65 04/18/25 04/18/25 04/18/25 04/18/25 09:45 10:00 10:15 10:30 Pulse 91 91 91 91 Resp 15 17 17 19 B/P (MAP) 130/55 (80) 98/65 (76) 105/65 (78) 95/72 (80) Pulse Ox 91 100 100 100 04/18/25 04/18/25 04/18/25 04/18/25 10:45 11:00 11:15 11:21 Pulse 91 91 91 91 Resp 18 19 21 20 B/P (MAP) 121/71 (88) 104/49 (67) 109/64 (79) Pulse Ox 100 100 100 04/18/25 04/18/25 04/18/25 04/18/25 11:30 11:42 11:45 12:00 Pulse 91 91 91 91 Resp 14 26 21 19 B/P (MAP) 106/46 (66) 112/60 (77) 110/76 (87) Pulse Ox 100 100 100 FiO2 80 04/18/25 04/18/25 04/18/25 04/18/25 12:00 12:00 12:15 12:30 Temp 98.2 Pulse 91 91 Resp 22 18 B/P (MAP) 110/64 (79) 103/56 (72) Pulse Ox 100 100 100 O2 Delivery BIPAP Bi-PAP+ FiO2 80 80 04/18/25 04/18/25 04/18/25 04/18/25 12:38 12:45 13:00 13:15 Pulse 91 91 91 Resp 18 17 18 B/P (MAP) 110/76 100/64 (76) 108/70 (83) 104/57 (73) Pulse Ox 100 100 100 04/18/25 04/18/25 04/18/25 04/18/25 13:30 13:38 13:45 14:00 Pulse 91 91 91 Resp 18 17 16 B/P (MAP) 130/50 (76) 122/90 105/60 (75) 89/54 (66) Pulse Ox 100 100 99 04/18/25 04/18/25 04/18/25 04/18/25 14:15 14:30 14:45 15:00 Pulse 91 91 91 91 Resp 17 14 17 16 B/P (MAP) 100/52 (68) 122/90 (101) 92/72 (79) 105/60 (75) Pulse Ox 99 99 98 04/18/25 04/18/25 04/18/25 04/18/25 15:13 15:15 15:30 15:35 Pulse 91 91 91 Resp 14 17 18 B/P (MAP) 123/83 (96) 105/42 (63) 123/83 Pulse Ox 98 98 FiO2 80 04/18/25 04/18/25 04/18/25 04/18/25 15:45 16:00 16:00 16:00 Temp 97.9 Pulse 91 91 Resp 17 18 B/P (MAP) 111/62 (78) 111/59 (76) Pulse Ox 98 98 98 O2 Delivery BIPAP Bi-PAP+ FiO2 80 80 04/18/25 04/18/25 04/18/25 04/18/25 16:15 16:30 16:45 17:00 Pulse 91 91 85 85 Resp 18 17 19 19 B/P (MAP) 114/53 (73) 104/62 (76) 121/46 (71) 99/66 (77) Pulse Ox 100 100 100 100 04/18/25 04/18/25 04/18/25 04/18/25 17:15 17:30 17:45 17:52 Pulse 91 91 91 Resp 20 18 20 B/P (MAP) 104/50 (68) 106/78 (87) 106/78 Pulse Ox 99 100 100 04/18/25 04/18/25 04/18/25 04/18/25 18:00 18:34 18:35 19:21 Pulse 91 91 91 Resp 18 15 15 B/P (MAP) 102/70 (81) 100/54 Pulse Ox 100 FiO2 80 Intake & Output (last 24hrs) 04/17/25 04/17/25 04/18/25 15:00 23:00 07:00 Intake Total 1272.4 ml 1339.9 ml 1256.3 ml Output Total 100 ml 250 ml Balance 1272.4 ml 1239.9 ml 1006.3 ml LABS: Laboratory: Test 04/18/25 18:17 04/18/25 14:29 04/18/25 11:30 04/18/25 10:02 Range/Units Whole Blood Glucose 90 # 70-110 MG/DL Lactic Acid Level 4.9 H 0.8-2.5 mmol/L Blood Gas Specimen Type Arterial Arterial Blood pH 7.361 7.350-7.450 Arterial Blood Partial Pressure CO2 41 32-45 mmHg Arterial Blood Partial Pressure O2 49.5 *L 83.0-108.0 mmHg Arterial Blood HCO3 22.4 21.0-28.0 mmol/L Arterial Blood Oxygen Saturation 81.3 L 94.0-98.0 % Arterial Blood Base Excess -2.8 L -2.0-3.0 mmol/L Hemoglobin (Blood Gas) 9.6 L 12.0-16.0 g/dL Sodium (Blood Gas) 133 L 136-145 MMOL/L Bedside Potassium (Blood Gas) 3.8 3.4-4.5 MMOL/L Bedside Chloride (Blood Gas) 97 L 98-107 MMOL/L Bedside Glucose (Blood Gas) 220 H 65-95 MG/DL Bedside Ionized Calcium (Blood Gas) 1.02 L 1.15-1.33 MMOL/L Bedside Lactic Acid (Blood Gas) 4.77 *H 0.36-0.75 MMOL/L Blood Gas Temperature 37.0 35.5-37.0 CELSIUS Blood Gas Respiration Rate 12.0 min. Blood Gas Vent Mode BIPAP 12-6 ROOM AIR FiO2 65.0 % Blood Gas Specimen Comment RR DAYANARA Ammonia < 10 L 11-32 umol/L Test 04/18/25 04:40 04/18/25 04:00 04/17/25 05:20 Range/Units White Blood Count 13.6 #H 4.8-10.8 K/uL Red Blood Count 2.70 #L 4.00-5.50 MIL/uL Hemoglobin 8.5 L 12.0-16.0 g/dL Hematocrit 25.8 L 36-48 % Mean Corpuscular Volume 95.6 79-99 fL Mean Corpuscular Hemoglobin 31.5 27.0-33.0 pg Mean Corpuscular Hemoglobin Concent 32.9 32.0-36.0 g/dL Red Cell Distribution Width 18.5 H 11.0-15.5 % Platelet Count 119 L 130-400 K/uL Mean Platelet Volume 11.4 H 7.5-10.5 fL Immature Granulocyte % (Auto) 0.5 0-1 % Neutrophils (%) (Auto) 97.7 H 40.0-77.0 % Lymphocytes (%) (Auto) 0.6 L 21.0-51.0 % Monocytes (%) (Auto) 1.0 L 3.0-13.0 % Eosinophils (%) (Auto) 0.0 0.0-8.0 % Basophils (%) (Auto) 0.2 0.0-5.0 % Neutrophils # (Auto) 13.3 H 1.8-7.7 K/uL Lymphocytes # (Auto) 0.1 L 1.0-4.8 K/uL Monocytes # (Auto) 0.1 0.1-1.0 K/uL Eosinophils # (Auto) 0.00 0.00-0.70 K/uL Basophils # (Auto) 0.03 0.00-0.20 K/uL Absolute Immature Granulocyte (auto 0.07 0-1 K/uL Nucleated Red Blood Cells 1.1 H 0.0-0.19 % Sodium Level 139 136-145 mmol/L Potassium Level 3.9 3.5-5.1 mmol/L Chloride Level 98 L 101-111 mmol/L Carbon Dioxide Level 22 21-32 mmol/L Blood Urea Nitrogen 121 *H 7-18 mg/dL Creatinine 3.9 H 0.5-1.0 mg/dL Glomerular Filtration Rate Calc 11 >90 mL/min Random Glucose 207 H 70-105 mg/dL Total Calcium 7.8 L 8.5-10.1 mg/dL Phosphorus Level 9.5 H 2.5-4.9 mg/dL Total Bilirubin 1.9 H 0.2-1.0 mg/dL Aspartate Amino Transf (AST/SGOT) 32 10-37 U/L Alanine Aminotransferase (ALT/SGPT) 76 12-78 U/L Alkaline Phosphatase 143 H 50-136 U/L Total Protein 4.1 L 6.0-8.3 g/dL Albumin 1.7 L 3.5-5.0 g/dL Prothrombin Time 13.6 H 9.6-11.6 SEC Prothromb Time International Ratio 1.32 H 0.85-1.15 Magnesium Level 1.90 1.80-2.40 mg/dL B-Type Natriuretic Peptide 45 0-100 pg/mL ASSESSMENT: Hypoxic respiratory failure, requiring intubation, s/p extubated, now on continuous BiPAP support.. Healthcare associated Pneumonia. Septic shock. Anemia, POA requiring blood transfusion. Acute on chronic renal failure. Heart failure. Elevated liver enzymes, improved. Morbid obesity. Diabetes mellitus. PLAN: Continue on linezolid IV. Continue on Meropenem. Continues on Doxycycline. Continue GI prophylaxis. Continue on BiPAP support. Continue diuretics. Continue critical care support. Continues on NG tube feedings with Nepro. Avoid nephrotoxic medications. flume worker has been consulted and following patient.. This case was reviewed and discussed with my supervising physician Dr. Rawls and the above assessment and plan was formulated and agreed upon. ATTESTATION BY PHYSICIAN I have seen and examined the patient. I reviewed the documentation, medical decision making, and treatment plan as noted by the mid-level provider above. I agree with the findings and plan of care. CASSY RAWLS MD, [facility] Apr 18, 2025 19:27
--- NOTE | 2025-04-18 20:30 | HMCSR ---
APPROVED REPORT EXAM: Two-dimensional and M-mode echocardiogram with Doppler and color Doppler. INDICATION ICD: Assess LV Function 2D Dimensions RVDd 4.7 cm LVED Vol(simp.) 78.4 mL LVES Vol(simp.) 43.9 mL LVEF(%, simp.) 44 % LA ESV INDEX (BP) 67.90 mL/m2 Deformation Strain Apical 4 -10.9 % Apical 2 -11.3 % Apical 3 -14.6 % Global Strain -12.3 % Mitral Valve MV E Vmax 98.0 cm/s DECEL Time 272 ms MV A Vmax 31.0 cm/s P 1/2 T 51 ms E/A ratio 3.2 MVA (PHT) 4.3 cm2 TDI E/E' Medial 18.7 E/E' Lateral 10.6 Medial E' Peak V 5.23 cm/s Lateral E' Peak V 9.27 cm/s Left Ventricle The left ventricle is normal size. There is normal left ventricular wall thickness. LVEF is 40-45%. Stage III diastolic dysfunction. Right Ventricle The right ventricle is mildly dilated. The right ventricular systolic function is normal. Device lead is present in the right ventricle. Atria The left atrium is severely dilated. The right atrium is severely dilated. Aortic Valve The aortic valve is trileaflet, mildly thickened but opens well. Trace aortic regurgitation by color doppler. There is no aortic valvular stenosis. Mitral Valve Mitral valve leaflets open well. Mitral valve leaflets are mildly thickened. Mitral regurgitation is mild. There is no mitral valve stenosis. Tricuspid Valve The tricuspid valve is normal in structure and function. There is no tricuspid valve regurgitation noted. Pulmonic Valve The pulmonary valve is normal in structure and function. Great Vessels The aortic root is normal in size. The IVC was not visualized. Pericardium Trace pericardial effusion. Other Information Quality : Limited/Follow-up Rhythm : NSR Conclusion LVEF is 40-45%. Stage III diastolic dysfunction. Severe biatrial enlargement Device lead is present in the right ventricle.
[2025-04-19] VITALS (103 sets, daily range): BP systolic 80–148; BP diastolic 32–118; PULSE 16–97; RESP 11–30; TEMP 97–97.4; O2SAT 73–100
--- NOTE | 2025-04-19 02:13 | PN ---
SUBJECTIVE: The patient is continuing in the Intensive Care Unit. Family has requested DNR/DNI. Continue with IV antibiotics. Continue with BiPAP and vasopressors. OBJECTIVE: GENERAL: The patient is currently comfortable in bed with BiPAP in place. VITAL SIGNS: Vital signs in the chart. HEENT: Normocephalic, atraumatic. LUNGS: Decreased breath sounds bilaterally. HEART: S1, S2 are distant. ABDOMEN: Soft, nontender. EXTREMITIES: No clubbing or cyanosis. LABORATORY DATA: WBC count 13.6, hemoglobin 8.5, platelets 119, sodium 139, potassium 3.9, BUN 121, creatinine 3.9, glucose 207, phosphorus 9.5, calcium 7.8, alkaline phosphatase 143, albumin 1.7. Chest x-ray reports some interval improvement in bilateral perihilar and vascular airspace disease. Interval improvement of bilateral pleural effusion with residual small left pleural effusion. Right PICC catheter with tip in the superior vena cava. Left pacemaker with intact leads in place. ASSESSMENT AND PLAN: * Respiratory failure. Continue with BiPAP. Family has requested DNR/DNI. * Congestive heart failure. The patient is status post a recent biventricular pacemaker placement. Continue with dobutamine infusion. * Prerenal azotemia secondary to congestive heart failure as well as some aggressive diuresis. Continue to monitor. * Septic shock with positive cultures for Sabrina. Leukocytosis has improved. Continue with Diflucan. * Anemia: Continue to monitor. Transfuse on a p.r.n. basis. * Atrial fibrillation, rate controlled. * Type 2 diabetes. Continue with ICU protocol. * Large right retroperitoneal hematoma. Continue to monitor. * Urinary tract infection with positive cultures for Sabrina. Continue with Diflucan. 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 The patient is unable to tolerate Xarelto, Eliquis, nor Pradaxa, nor warfarin. * The patient's prognosis is poor. Continue to follow up. DOS: 04/18/2025 TID: [id number] RECEIPT: [id number] [facility]
[2025-04-19 05:14] LABS: IMMATURE GRANULOCYTE ABSOLUTE 0.05 K/uL (0-1); NUCLEATED RED BLOOD CELLS 0.9 % (0.0-0.19); PLATELET COUNT (AUTO) 95 K/uL (130-400); RED BLOOD CELL COUNT(AUTO) 2.77 MIL/uL (4.00-5.50); RED CELL DISTRIBUTION WIDTH 17.9 % (11.0-15.5); WHITE BLOOD COUNT (AUTO) 11.6 K/uL (4.8-10.8)
[2025-04-19 05:43] LABS: ASPARTATE AMINOTRANSFERASE 32.0 U/L (10-37); CREATININE 3.9 mg/dL (0.5-1.0); GLOMERULAR FILTR. RATE CALC 11.0 mL/min (>90); GLUCOSE,RANDOM 147.0 mg/dL (70-105); PHOSPHORUS 9.8 mg/dL (2.5-4.9); SODIUM SERUM 136.0 mmol/L (136-145); TOTAL PROTEIN, SERUM 3.9 g/dL (6.0-8.3)
[2025-04-19 05:50] LABS: UREA NITROGEN, BLOOD 132.0 mg/dL (7-18)
--- NOTE | 2025-04-19 09:15 | PN ---
NEPHROLOGY PROGRESS NOTE Date/Time Patient Seen: Apr 19, 2025 SUBJECTIVE: This is an 84-year-old female who was sent to the Emergency Room from the [facility] and the patient has shortness of breath and chest pain. CT scan showed Large right retroperitoneal hematoma extending along the iliopsoas and into the right iliacus, displacing the right kidney. Continues to require vasopressors to maintain blood pressure She has been in the hospital for several days and was noted with worsening renal failure She was noted to have elevated BUN and creatinine, She has had acute on chronic renal dysfunction while in the hospital Continues on diuretics The patient has been seen for all of the above Renal function continues to worsen Electrolytes are noted She was seen in the ICU Family at the bedside Condition is critical and guarded REVIEW OF SYSTEMS: GENERAL: Negative for any nausea, vomiting, fevers, chills, or weight loss. NEUROLOGIC: Negative for any blurry vision, blind spots, double vision, facial asymmetry, dysphagia, dysarthria, hemiparesis, hemisensory deficits, vertigo, ataxia. HEENT: Negative for any head trauma, neck trauma, neck stiffness, photophobia, phonophobia, sinusitis, rhinitis. CARDIAC: Negative for any chest pain, dyspnea on exertion, paroxysmal nocturnal dyspnea, peripheral edema. PULMONARY: Negative for any shortness of breath, wheezing, COPD, or TB exposure. GASTROINTESTINAL: Negative for any abdominal pain, nausea, vomiting, bright red blood per rectum, melena. GENITOURINARY: Negative for any dysuria, hematuria, incontinence. INTEGUMENTARY: Negative for any rashes, cuts, insect bites. RHEUMATOLOGIC: Negative for any joint pains, photosensitive rashes, history of vasculitis or kidney problems. HEMATOLOGIC: Negative for any abnormal bruising, frequent infections or bleeding. Vital Signs (last 8hr) Date Time Temp Pulse Resp B/P (MAP) Pulse Ox O2 Delivery O2 Flow Rate FiO2 04/19/25 06:45 91 15 144/109 (121) 100 04/19/25 06:30 91 18 122/82 (95) 100 04/19/25 06:20 16 16 04/19/25 06:18 91 25 65 04/19/25 06:00 91 18 99/60 (73) 100 04/19/25 05:45 91 17 134/88 (103) 100 04/19/25 05:30 91 17 93/52 (66) 100 04/19/25 05:18 108/60 04/19/25 05:15 91 14 94/40 (58) 99 04/19/25 05:00 91 19 108/60 (76) 100 04/19/25 04:45 91 17 94/57 (69) 100 04/19/25 04:30 91 16 94/38 (56) 100 04/19/25 04:15 91 18 98/51 (67) 100 04/19/25 04:00 97.3 BIPAP 80 04/19/25 04:00 91 16 98/57 (71) 100 04/19/25 04:00 98 Bi-PAP+ 80 04/19/25 03:45 91 16 92/50 (64) 100 04/19/25 03:30 91 16 95/58 (70) 100 04/19/25 03:15 91 15 93/52 (66) 100 04/19/25 03:00 91 17 93/62 (72) 100 04/19/25 02:50 91 12 80 04/19/25 02:45 91 13 86/52 (63) 100 04/19/25 02:30 85 13 91/54 (66) 100 04/19/25 02:15 91 15 94/40 (58) 100 04/19/25 02:00 91 12 91/56 (68) 100 04/19/25 01:45 91 13 95/56 (69) 100 04/19/25 01:30 91 13 80/48 (59) 100 04/19/25 01:15 91 13 147/67 (93) 100 PHYSICAL EXAM: GENERAL: Pale, acutely ill female, lethargic, no acute distress. Well-nourished. EYES: EOMI. Anicteric. HENT: Moist mucous membranes. No scleral icterus. No cervical lymphadenopathy. LUNGS: Clear to auscultation bilaterally. No accessory muscle use. CARDIOVASCULAR: Regular rate and rhythm. No murmur. No JVD. ABDOMEN: Soft, non-tender and non-distended. No palpable masses. EXTREMITIES: No edema. Non-tender. SKIN: No rashes or lesions. Warm. NEUROLOGIC: No focal neurological deficits. CN II-XII grossly intact, but not individually tested. PSYCHIATRIC: Cooperative. Appropriate mood and affect. Current Medications Medications (Trade) Dose Ordered Sig/Asif Route Start Time Stop Time Status Last Admin Dose Admin Albuterol (DUOneb) 1 UDVIAL [id number] IH 04/06/25 12:00 04/06/25 11:12 DC Artificial Tears (Artificial Tears) 2 DROPS Q4H OU 04/12/25 17:00 04/14/25 13:15 DC 04/14/25 13:14 1 DROP Azithromycin 250 ml @ 250 mls/hr ONCE IVPB 04/06/25 09:00 04/06/25 10:00 DC 04/06/25 10:45 250 MLS/HR Bacitracin (Bacitracin 28.4gm) apply to right and left thi... BID TP 04/15/25 21:00 05/15/25 20:59 04/17/25 10:17 1 GM Calcium Gluconate (Calcium Gluc 1gm Vial) 1 gm ONCE IVPB 04/08/25 17:00 05/08/25 16:59 UNV Calcium Gluconate (Calcium Gluc 1gm Vial) 1 gm PROTOCOL IVPB 04/09/25 05:00 05/09/25 04:59 04/09/25 05:17 1 GM Dexmedetomidine/ Sodium Chloride (PRECEdex 400MCG/ 100ML-NS) 400 mcg PROTOCOL IV 04/06/25 18:30 04/10/25 11:09 DC 04/09/25 09:22 400 MCG Dexmedetomidine/ Sodium Chloride (PRECEdex 400MCG/ 100ML-NS) 400 mcg PROTOCOL IV 04/12/25 18:30 04/14/25 13:15 DC 04/12/25 19:00 400 MCG Dextrose 1,000 ml @ 75 mls/hr [id number] IV 04/06/25 20:30 04/07/25 12:45 DC 04/06/25 20:29 75 MLS/HR Dextrose/Sodium Chloride 1,000 ml @ 75 mls/hr [id number] IV 04/09/25 10:00 04/10/25 21:01 DC 04/09/25 15:00 75 MLS/HR Dobutamine HCl/ Dextrose 250 ml @ 42.483 mls/ hr PROTOCOL IV 04/10/25 11:30 05/10/25 11:29 04/17/25 13:21 42.483 MLS/HR Doxycycline Hyclate 250 ml @ 125 mls/hr Q12H IV 04/10/25 11:30 04/20/25 11:29 04/17/25 12:44 125 MLS/HR Enoxaparin Sodium (Lovenox) 30 mg DAILY SQ 04/07/25 08:00 04/07/25 00:16 DC Epinephrine HCl 10 mg/Sodium Chloride 250 ml @ 0 mls/hr PROTOCOL IV 04/06/25 22:00 04/11/25 11:49 DC Epoetin Prashanth-epbx (Retacrit) 10,000 unit [id number] SQ 04/12/25 09:00 05/12/25 08:59 04/17/25 09:30 10,000 UNIT Fentanyl Citrate 100 ml @ 2.5 mls/hr PROTOCOL IV 04/06/25 09:30 04/08/25 01:51 DC 04/08/25 01:39 2.5 MLS/HR Fentanyl/Sodium Chloride 250 ml @ 0.1 mls/hr PROTOCOL IV 04/08/25 02:00 04/12/25 12:22 DC 04/12/25 01:26 0.1 MLS/HR Fluconazole/ Sodium Chloride 100 ml @ 100 mls/hr DAILY IV 04/17/25 14:00 05/17/25 13:59 04/17/25 14:56 100 MLS/HR Furosemide (LASix 20MG VIAL) 20 mg Q8H IV 04/08/25 15:30 04/10/25 11:09 DC 04/10/25 08:54 20 MG Furosemide 100 mg/ Sodium Chloride 100 ml @ 15 mls/hr PROTOCOL IV 04/10/25 11:30 05/10/25 11:29 04/17/25 10:00 15 MLS/HR Gabapentin (NEURontin 100 mg CAP) 100 mg TID PO 04/14/25 14:00 05/14/25 13:59 04/17/25 13:08 100 MG Insulin Human Regular (humuLIN R 100 UNIT/ML 3ML) INSULIN SLIDING SCAL... Q6H6 SQ 04/10/25 12:00 05/10/25 11:59 04/16/25 07:20 2 UNIT Ipratropium Ferris (AtrovENT UD) 0.5 mg [id number] IH 04/07/25 12:00 05/07/25 11:59 04/17/25 11:09 0.5 MG Ipratropium Ferris (AtrovENT UD) 0.5 mg [id number] IH 04/07/25 22:10 04/07/25 11:41 DC Lactated Ringer's (Lactated Ringers 1000ml) 1,000 ml BOLUS IV 04/06/25 16:30 04/08/25 07:52 DC Lidocaine (Lidoderm Patch 5%) 1 patch DAILY TP 04/15/25 09:00 05/15/25 08:59 04/17/25 08:05 1 PATCH Linezolid 300 ml @ 150 mls/hr Q12H IV 04/09/25 14:00 04/09/25 16:14 DC Linezolid 300 ml @ 150 mls/hr Q12H IV 04/09/25 16:30 04/19/25 16:29 04/17/25 03:45 150 MLS/HR Magnesium Sulfate 50 ml @ 0 mls/hr PROTOCOL IV 04/09/25 05:00 05/09/25 04:59 04/12/25 08:56 25 MLS/HR Meropenem (Merrem 1gm) 1 gm Q12H IVPB 04/06/25 11:00 04/08/25 07:56 DC 04/07/25 23:48 1 GM Meropenem (Merrem 1gm) 1 gm Q24H IVPB 04/08/25 23:00 04/10/25 22:53 DC 04/10/25 00:08 1 GM Meropenem (Merrem 1gm) 1 gm Q24H IVPB 04/11/25 02:00 04/21/25 01:59 04/17/25 00:28 1 GM Methylprednisolone Sodium Succinate (Solu-medROL 40MG) 40 mg Q12H9 IVP 04/13/25 21:00 05/13/25 20:59 04/17/25 08:05 40 MG Methylprednisolone Sodium Succinate (Solu-medROL 40MG) 40 mg Q6H IVP 04/11/25 16:00 04/13/25 16:54 DC 04/13/25 10:39 40 MG Methylprednisolone Sodium Succinate (Solu-medROL 40MG) 60 mg Q6H IVP 04/08/25 10:00 04/11/25 11:49 DC 04/11/25 08:48 60 MG Methylprednisolone Sodium Succinate (Solu-medROL 125MG) 60 mg Q6H IVP 04/06/25 22:00 04/08/25 07:50 DC 04/08/25 03:43 60 MG Metolazone (zarOXOlyn) 5 mg [id number] PO 04/17/25 06:30 05/17/25 06:29 04/17/25 12:44 5 MG Micafungin Sodium 100 ml @ 100 mls/hr Q24H IV 04/08/25 10:00 04/09/25 09:59 DC 04/08/25 09:19 100 MLS/HR Norepinephrine 250 ml @ 0 mls/hr PROTOCOL IV 04/06/25 10:30 04/06/25 21:28 DC 04/06/25 21:18 263.253 MLS/HR Norepinephrine Bitartrate 32 mg/ Sodium Chloride 250 ml @ 0 mls/hr PROTOCOL IV 04/07/25 08:30 05/07/25 08:29 04/08/25 01:59 0 MLS/HR Norepinephrine Bitartrate 32 mg/ Sodium Chloride 250 ml @ 0 mls/hr Q0M STAT IV 04/06/25 21:20 04/06/25 21:31 DC 04/06/25 21:50 0 MLS/HR Pantoprazole Sodium (PROTonix 40MG INJ) 40 mg BID IVP 04/07/25 09:00 05/07/25 08:59 04/17/25 08:03 40 MG Pharmacy Profile Note (Pharmacy Communication) 1 each ONCE MISC 04/08/25 08:30 04/08/25 08:51 DC Pharmacy Profile Note (Pharmacy Communication) 1 each ONCE MISC 04/08/25 13:30 04/08/25 11:16 DC Pharmacy Profile Note (Pharmacy Communication) 1 each ONCE MISC 04/09/25 10:00 04/09/25 09:58 DC Pharmacy Profile Note (Pharmacy Communication) 1 each ONCE MISC 04/09/25 13:30 04/09/25 13:37 DC Pharmacy Profile Note (Pharmacy Communication) 1 each Q12H9 MISC 04/06/25 21:00 04/06/25 10:19 DC Sodium Bicarbonate 150 meq/Dextrose 1,000 ml @ 50 mls/hr Q20H IVP 04/07/25 00:30 04/08/25 11:02 DC 04/07/25 01:02 50 MLS/HR Sodium Bicarbonate 150 meq/Dextrose 1,000 ml @ 100 mls/hr Q10H IVP 04/08/25 11:30 04/09/25 09:46 DC 04/08/25 21:59 100 MLS/HR Sodium Bicarbonate 150 meq/Dextrose/Water 1,000 ml @ 100 mls/hr Q10H IVP 04/08/25 11:00 04/08/25 11:07 DC Sodium Chloride 500 ml @ 500 mls/hr Q1H IV 04/06/25 21:00 04/07/25 02:12 DC 04/06/25 21:19 500 MLS/HR Sodium Chloride 500 ml @ 500 mls/hr Q1H IV 04/08/25 08:48 04/08/25 11:04 DC 04/08/25 09:19 500 MLS/HR Sodium Chloride 500 ml @ 0 mls/hr Q0M IV 04/09/25 10:00 04/10/25 11:59 DC 04/09/25 10:04 500 MLS/HR Sodium Chloride 500 ml @ 0 mls/hr Q0M IV 04/09/25 14:00 04/10/25 11:59 DC Sodium Chloride 500 ml @ 0 mls/hr Q0M IV 04/09/25 18:00 04/10/25 11:59 DC Sodium Chloride 500 ml @ 0 mls/hr Q0M IV 04/09/25 22:00 04/10/25 11:59 DC 04/09/25 22:00 999 MLS/HR Sodium Chloride 500 ml @ 0 mls/hr Q0M IV 04/10/25 02:00 04/10/25 11:59 DC 04/10/25 02:00 999 MLS/HR Sodium Chloride 500 ml @ 0 mls/hr Q0M IV 04/10/25 06:00 04/10/25 11:59 DC 04/10/25 06:08 999 MLS/HR Sodium Chloride 1,000 ml @ 100 mls/hr Q10H IV 04/06/25 10:00 04/06/25 11:12 DC 04/06/25 10:51 100 MLS/HR Sodium Chloride 1,000 ml @ 100 mls/hr Q10H IV 04/06/25 11:30 04/07/25 12:44 DC Sodium Chloride 1,000 ml @ 500 mls/hr Q2H IV 04/08/25 08:30 04/08/25 08:51 DC Sodium Chloride (NS 50ml) 50 ml AD IV 04/09/25 05:00 04/09/25 05:12 DC Sodium Chloride 154 meq/Dextrose 1,000 ml @ 50 mls/hr Q20H IV 04/07/25 13:00 04/08/25 07:58 DC 04/07/25 13:10 50 MLS/HR Thiamine HCl (Vitamin B-1) 100 mg DAILY IM 04/11/25 09:00 05/11/25 08:59 04/17/25 08:03 100 MG Vancomycin HCl (Vancomycin 750mg) 750 mg Q24H IVPB 04/07/25 09:00 04/08/25 07:56 DC 04/07/25 08:58 750 MG Vancomycin HCl (Vancomycin 750mg) 750 mg Q48H IVPB 04/09/25 09:00 04/09/25 13:28 DC 04/09/25 09:56 750 MG Vancomycin HCl (Vancomycin Protocol) 1 each AD IV 04/06/25 10:00 04/09/25 13:28 DC Vasopressin 40 units/Sodium Chloride 40 ml @ 0 mls/hr PROTOCOL IV 04/06/25 21:30 04/11/25 11:49 DC 04/07/25 04:33 1.8 MLS/HR Vitamin B Complex/ Vit C/Folic Acid (Nephrovite Tablet) 1 cap DAILY PO 04/11/25 09:00 05/11/25 08:59 04/17/25 08:03 1 CAP LABORATORY: [ ] Hematology Labs: Test 04/19/25 05:05 Range/Units White Blood Count 11.6 H 4.8-10.8 K/uL Red Blood Count 2.77 L 4.00-5.50 MIL/uL Hemoglobin 8.7 L 12.0-16.0 g/dL Hematocrit 26.0 L 36-48 % Mean Corpuscular Volume 93.9 79-99 fL Mean Corpuscular Hemoglobin 31.4 27.0-33.0 pg Mean Corpuscular Hemoglobin Concent 33.5 32.0-36.0 g/dL Red Cell Distribution Width 17.9 H 11.0-15.5 % Platelet Count 95 L 130-400 K/uL Mean Platelet Volume 11.5 H 7.5-10.5 fL Immature Granulocyte % (Auto) 0.4 0-1 % Neutrophils (%) (Auto) 96.4 H 40.0-77.0 % Lymphocytes (%) (Auto) 1.5 L 21.0-51.0 % Monocytes (%) (Auto) 1.5 L 3.0-13.0 % Eosinophils (%) (Auto) 0.0 0.0-8.0 % Basophils (%) (Auto) 0.2 0.0-5.0 % Neutrophils # (Auto) 11.2 H 1.8-7.7 K/uL Lymphocytes # (Auto) 0.2 L 1.0-4.8 K/uL Monocytes # (Auto) 0.2 0.1-1.0 K/uL Eosinophils # (Auto) 0.00 0.00-0.70 K/uL Basophils # (Auto) 0.02 0.00-0.20 K/uL Absolute Immature Granulocyte (auto 0.05 0-1 K/uL Nucleated Red Blood Cells 0.9 H 0.0-0.19 % Chemistry Labs: Test 04/19/25 05:06 04/19/25 05:05 04/18/25 10:02 Range/Units Whole Blood Glucose 143 H 70-110 MG/DL Sodium Level 136 136-145 mmol/L Potassium Level 3.7 3.5-5.1 mmol/L Chloride Level 97 L 101-111 mmol/L Carbon Dioxide Level 22 21-32 mmol/L Blood Urea Nitrogen 132 *H 7-18 mg/dL Creatinine 3.9 H 0.5-1.0 mg/dL Glomerular Filtration Rate Calc 11 >90 mL/min Random Glucose 147 H 70-105 mg/dL Lactic Acid Level 3.6 H 0.8-2.5 mmol/L Total Calcium 7.6 L 8.5-10.1 mg/dL Phosphorus Level 9.8 H 2.5-4.9 mg/dL Magnesium Level 1.90 1.80-2.40 mg/dL Total Bilirubin 1.5 H 0.2-1.0 mg/dL Aspartate Amino Transf (AST/SGOT) 32 10-37 U/L Alanine Aminotransferase (ALT/SGPT) 67 12-78 U/L Alkaline Phosphatase 142 H 50-136 U/L Total Protein 3.9 L 6.0-8.3 g/dL Albumin 1.5 L 3.5-5.0 g/dL Ammonia < 10 L 11-32 umol/L Coagulation Labs: Test 04/18/25 04:00 Range/Units Prothrombin Time 13.6 H 9.6-11.6 SEC Prothromb Time International Ratio 1.32 H 0.85-1.15 DIAGNOSTICS / RADIOLOGY: [facility] [address] [place] [address] IMAGING REPORT Signed PATIENT: LORE OCONNELL MR#: [id number] : 1940 SEX: F AGE: 84 LOCATION: [facility] ORDER 0932 STATUS: ADM IN REPORT#: [id number] SERVICE REASON: EF ORDERING PHYSICIAN: PACHECO TOBAR PROCEDURE: ECHO FU LD - ECHO 2-D F/U-LTD APPROVED REPORT EXAM: Two-dimensional and M-mode echocardiogram with Doppler and color Doppler. INDICATION ICD: Assess LV Function 2D Dimensions RVDd 4.7 cm LVED Vol(simp.) 78.4 mL LVES Vol(simp.) 43.9 mL LVEF(%, simp.) 44 % LA ESV INDEX (BP) 67.90 mL/m2 Deformation Strain Apical 4 -10.9 % Apical 2 -11.3 % Apical 3 -14.6 % Global Strain -12.3 % Mitral Valve MV E Vmax 98.0 cm/s DECEL Time 272 ms MV A Vmax 31.0 cm/s P 1/2 T 51 ms E/A ratio 3.2 MVA (PHT) 4.3 cm2 TDI E/E' Medial 18.7 E/E' Lateral 10.6 Medial E' Peak V 5.23 cm/s Lateral E' Peak V 9.27 cm/s Left Ventricle The left ventricle is normal size. There is normal left ventricular wall thickness. LVEF is 40-45%. Stage III diastolic dysfunction. Right Ventricle The right ventricle is mildly dilated. The right ventricular systolic function is normal. Device lead is present in the right ventricle. Atria The left atrium is severely dilated. The right atrium is severely dilated. Aortic Valve The aortic valve is trileaflet, mildly thickened but opens well. Trace aortic regurgitation by color doppler. There is no aortic valvular stenosis. Mitral Valve Mitral valve leaflets open well. Mitral valve leaflets are mildly thickened. Mitral regurgitation is mild. There is no mitral valve stenosis. Tricuspid Valve The tricuspid valve is normal in structure and function. There is no tricuspid valve regurgitation noted. Pulmonic Valve The pulmonary valve is normal in structure and function. Great Vessels The aortic root is normal in size. The IVC was not visualized. Pericardium Trace pericardial effusion. Other Information Quality : Limited/Follow-up Rhythm : NSR Conclusion LVEF is 40-45%. Stage III diastolic dysfunction. Severe biatrial enlargement Device lead is present in the right ventricle. DICTATED BY: KASH DUONG DO DATE: 04/18/25939 ELECTRONICALLY SIGNED BY: KASH DUONG DO DATE: 04/18/252029 PATIENT: LORE OCONNELL MR#: [id number] : 1940 SEX: F AGE: 84 LOCATION: [facility] ORDER 2300 STATUS: ADM IN REPORT#: [id number] SERVICE 0600 REASON: Resp failure ORDERING PHYSICIAN: PACHECO TOBAR PROCEDURE: CXR1VW - CHEST 1VW EXAM: CR Chest, 1 View. CLINICAL HISTORY: Resp failure COMPARISON: 04/17/2025 FINDINGS: Right PICC catheter with the tip in the superior vena cava. A nasogastric tube is seen with the tip likely in the gastroesophageal junction; recommend further advancement of the tube for optimal positioning. LUNGS: Interval improvement in bilateral perihilar and basilar airspace disease. PLEURAL SPACES: No pneumothorax. Interval improvement in bilateral pleural effusion, with residual small left pleural effusion with adjacent lung atelectasis. MEDIASTINUM: Mild stable cardiomegaly. Interval reduction in pulmonary vascular congestion. Atherosclerotic aortic arch. Left pacemaker with intact leads in place. BONES: No aggressive appearing osseous lesion seen. IMPRESSION: 1. Interval improvement in bilateral perihilar and basilar airspace disease. 2. Interval improvement in bilateral pleural effusion with residual small left pleural effusion, with adjacent lung atelectasis. 3. Right PICC catheter with tip in the superior vena cava. 4. Nasogastric tube tip likely at the gastroesophageal junction; recommend further advancement for optimal positioning. /[place] DICTATED BY: SHAKIR GARCIA Jr., MD DATE: 04/18/25 105 ELECTRONICALLY SIGNED BY: SHAKIR GARCIA Jr., MD DATE: 04/18/251058 PATIENT: LORE OCONNELL MR#: [id number] : 1940 SEX: F AGE: 84 LOCATION: [facility] ORDER 2300 STATUS: ADM IN REPORT#: [id number] SERVICE 0600 REASON: SOB ORDERING PHYSICIAN: BOYD GUERRA PAC PROCEDURE: CXR1VW - CHEST 1VW EXAM: CR Chest, 1 View. CLINICAL HISTORY: SOB COMPARISON: 04/16/2025 FINDINGS: Right-sided PICC catheter with tip in the superior vena cava. LUNGS: Mild interval increase in right pleural effusion with adjacent lung atelectasis. Stable small left pleural effusion. Persistent patchy areas of ground-glass opacities in the right parahilar region are due to probable pulmonary edema. PLEURAL SPACES: No pneumothorax. MEDIASTINUM: Mild stable cardiomegaly with bilateral pulmonary congestion. A left pacemaker device with intact leads in situ. Atherosclerotic aortic knob. BONES: No acute osseous abnormality. IMPRESSION: 1. Mild interval increase in right pleural effusion with adjacent lung atelectasis. Stable small left pleural effusion. 2. Mild stable cardiomegaly with bilateral pulmonary congestion. Persistent patchy areas of groundglass opacities in the right parahilar region, likely due to pulmonary edema. 3. Right-sided PICC catheter with tip in the superior vena cava. Compared to the prior study, there is an interval progression of right pleural effusion with adjacent lung atelectasis. /[place] DICTATED BY: SHAKIR GARCIA Jr., MD DATE: 04/18/251109 ELECTRONICALLY SIGNED BY: SHAKIR GARCIA Jr., MD DATE: 04/18/251109 PATIENT: LORE OCONNELL MR#: [id number] : 1940 SEX: F AGE: 84 LOCATION: [facility] ORDER 2 STATUS: ADM IN REPORT#: [id number] SERVICE REASON: SOB ORDERING PHYSICIAN: BOYD GUERRA PAC PROCEDURE: CXR1VW - CHEST 1VW EXAM: CR Chest, single view. CLINICAL HISTORY: Shortness of breath. COMPARISON: Prior chest radiograph dated April 15, 2025 FINDINGS: Right-sided central venous catheter with tip in the superior vena cava. Mild cardiomegaly with bilateral pulmonary congestion. Mild bilateral pleural effusion is left more than right with adjacent lung atelectasis. Patchy areas of groundglass opacities in the right parahilar region are probable pulmonary edema. A battery pack is in the left anterior chest wall with pacemaker wires in the right atrium and ventricles. No acute osseous abnormality. Degenerative changes in the mid and lower thoracic spine. IMPRESSION: Right-sided central venous catheter with tip in the superior vena cava. Mild cardiomegaly with bilateral pulmonary congestion. Mild bilateral pleural effusion is left more than right with adjacent lung atelectasis. Patchy areas of groundglass opacities in the right parahilar region are probable pulmonary edema. A battery pack is in the left anterior chest wall with pacemaker wires in the right atrium and ventricles. Compared to the prior study, there is an interval progression of bilateral pleural effusion development of groundglass opacities in the right parahilar region. /[place] DICTATED BY: SHAKIR GARCIA Jr., MD DATE: 04/16/25904 ELECTRONICALLY SIGNED BY: SHAKIR GARCIA Jr., MD DATE: 04/16/25904 PATIENT: LORE OCONNELL MR#: [id number] : 1940 SEX: F AGE: 84 LOCATION: [facility] ORDER 8 STATUS: ADM IN REPORT#: [id number] SERVICE REASON: bipap support ORDERING PHYSICIAN: BOYD GUERRA PAC PROCEDURE: CXR1VW - CHEST 1VW EXAM: CR CHEST, 1 VIEW CLINICAL HISTORY: bipap support COMPARISON: CR: CHEST 1VW dated 04/13/2025 06:08 AM EST: TECHNIQUE: Single frontal radiograph of the chest was obtained. FINDINGS: Lines/Devices: A pacemaker is seen with intact leads. The previously noted endotracheal tube is not seen, mostly removed. Lungs: stationary course as regards the previously noted central pulmonary congestion seen in both lungs. Blunted left costophrenic angle still noted, suggestive of minimal pleural effusion. There is no pneumothorax. Mediastinum and cardiovascular structures: Still noted mild cardiomegaly. Prominent aortic calcifications with atheromatous calcifications. The central airway and mediastinal contours are unremarkable. Bones and soft tissues: Unremarkable. IMPRESSION: 1. Mild reduction in the previously noted central pulmonary venous congestion. 2. Blunted left costophrenic angle, suggestive of minimal pleural effusion. 3. Mild cardiomegaly. 4. Prominent aortic calcifications with atheromatous calcifications. 5.As compared to the previous CR: CHEST 1VW dated 04/13/2025 06:08 AM EST, stationary course as regards the previously noted central pulmonary congestion as well as mild cardiomegaly, the previously noted endotracheal tube is not seen in today's study, likely surgically removed .No new findings /[place] DICTATED BY: HENRIK FOX MD DATE: 04/15/252249 ELECTRONICALLY SIGNED BY: HENRIK FOX MD DATE: 04/15/252249 PATIENT: LORE OCONNELL MR#: [id number] : 1940 SEX: F AGE: 84 LOCATION: [facility] ORDER 99 STATUS: ADM IN REPORT#: [id number] SERVICE 9 REASON: chf ORDERING PHYSICIAN: SHADE YOUNGBLOOD MD PROCEDURE: CXR1VW - CHEST 1VW EXAM: CR Chest, 1 View. CLINICAL HISTORY: CHF COMPARISON: 04/12/2025 FINDINGS: The ET tube tip is 4.4 cm away from the juanito. The nasogastric tube is seen below the left hemidiaphragm. LUNGS: Left basilar atelectasis. Otherwise, the lungs are essentially clear. PLEURAL SPACES: No pneumothorax. Stable small left pleural effusion. MEDIASTINUM: Mild cardiomegaly with interval reduction in the central pulmonary venous congestion in both lungs. The pacemaker leads overlie the right atrium and right ventricle. BONES: No acute osseous abnormality. IMPRESSION: 1. Mild cardiomegaly with interval reduction in central pulmonary venous congestion. 2. Stable small left pleural effusion. 3. ET tube tip 4.4 cm from juanito. 4. Nasogastric tube below the left hemidiaphragm. /[place] DICTATED BY: SHAKIR GARCIA Jr., MD DATE: 04/13/251035 ELECTRONICALLY SIGNED BY: SHAKIR GARCIA Jr., MD DATE: 04/13/251035 PATIENT: LORE OCONNELL MR#: [id number] : 1940 SEX: F AGE: 84 LOCATION: [facility] ORDER 99 STATUS: ADM IN REPORT#: [id number] SERVICE 9 REASON: PNA ORDERING PHYSICIAN: ZENOBIA PEREZ MD PROCEDURE: CXR1VW - CHEST 1VW CHEST 1VW REASON: PNA COMPARISON: Prior chest radiograph from 04/09/2025 is available. FINDINGS: Single view of the chest was obtained. The study is limited due to poor inspiratory radiograph patient is rotated.. The lung [place] are clear. There is no evidence of any vascular congestion. There is mild cardiomegaly with left ventricular contour. There is a support lines including endotracheal tube and nasogastric tube are in satisfactory position. There is a left-sided pacemaker with lead in right atrium and right ventricle.. Mediastinum and bony thorax appear unremarkable. The bony thorax demonstrate mild osteopenia. IMPRESSION: 1. Mild cardiomegaly 2. Support lines satisfactory position 3. Limited study with no evidence of airspace consolidation or pulmonary venous congestion. DICTATED BY: JADEN CHAVIRA MD DATE: 04/10/251251 ELECTRONICALLY SIGNED BY: JADEN CHAVIRA MD DATE: 04/10/251255 PATIENT: LORE OCONNELL MR#: [id number] : 1940 SEX: F AGE: 84 LOCATION: [facility] ORDER 6 STATUS: ADM IN REPORT#: [id number] SERVICE 2 REASON: septic/SOB ORDERING PHYSICIAN: ZENOBIA PEREZ MD PROCEDURE: CAP WO - CT CHEST/ABD/PELV W/O CONTRAST ADDENDUM REPORT ADDENDUM: Results were shared by telephone at 09:07 PM on 04-08-2025 and acknowledged by the Patient's Nurse Zainab Suebrina Quinones /[place] EXAM: CT Chest, Abdomen and Pelvis without Intravenous Contrast CLINICAL HISTORY: evaluation of sepsis. TECHNIQUE: Axial computed tomography images of the chest, abdomen and pelvis without intravenous contrast. Dose reduction technique was used including one or more of the following: automated exposure control, adjustment of mA and kV according to patient size, and/or iterative reconstruction. Total exam DLP is 1117 mGy x cm. CONTRAST: None. COMPARISON: Prior chest radiograph dated 04/08/2025, acquired at 04:52 hours. FINDINGS: CHEST: LUNGS: Endotracheal tube with its tip positioned 3.5 cm short of juanito. Moderate sized bilateral pleural effusions with atelectasis/consolidation of the lung bases. Multifocal areas of ground-glass opacities, mosaic attenuation are present in the remainder of the lung parenchyma bilaterally. PLEURAL SPACES: Moderate sized bilateral pleural effusions. No pneumothorax. HEART AND MEDIASTINUM: Left chest wall pacemaker with electrodes terminating in the lumen of the coronary sinus and the right heart chambers. Atheromatous calcification of the aortic arch and the coronary arteries. Right sided PICC line visualized with its tip terminating in the right brachiocephalic vein. Feeding tube visualized with its tip terminating at the gastroesophageal junction. Mild cardiomegaly. Coronary arterial calcifications present. Mitral and aortic valve annulus calcifications. No significant pericardial effusion. LYMPH NODES: No lymphadenopathy. ABDOMEN AND PELVIS: LIVER: Ill-defined hypodense area measuring 2 x 2.1 cm in the segment VII of the subcapsular region of the right hepatic lobe, without areas of calcification or fat in it. GALLBLADDER AND BILE DUCTS: Gallbladder is surgically absent. No biliary ductal dilatation. PANCREAS: Pancreas is atrophic. No pancreatic ductal dilatation or calculi. SPLEEN: Spleen is atrophic and shrunken with areas of capsular calcifications. ADRENAL GLANDS: Unremarkable. KIDNEYS, URETERS, AND BLADDER: Bilateral intrarenal segmental arterial calcifications. Multiple right sided renal calculi, measuring up to 4 mm. A Mcdowell's catheter is appropriately positioned in the bladder lumen. No hydronephrosis. No ureteral or bladder calculi. STOMACH AND BOWEL: Evidence of prior surgical intervention involving the stomach, incompletely evaluated due to lack of optimal luminal distension. Gastric bypass surgery status with appropriate position of the gastrojejunal anastomosis. No obstruction. No wall thickening. No CT evidence of colitis or acute diverticulitis. APPENDIX: No CT evidence for appendicitis. PERITONEUM: No free fluid. No free air. LYMPH NODES: No lymphadenopathy. REPRODUCTIVE: Uterus is not distinctly visualized. VASCULATURE: The abdominal aorta demonstrates atheromatous calcification without aneurysm or dissection. BONES AND SOFT TISSUES: Diffuse body wall edema. Right retroperitoneal space hyperdense collection, measuring approximately 14 x 7 x 25 cm, visualized on the anterior aspect of the iliopsoas. It is extending toward the right groin. The right iliacus muscle also appears bulky with similar hyperdense contents, likely representing hematoma. The collection is visualized in the retroperitoneal compartment and is displacing the right kidney anteriorly. Severe osteopenia. Chronic appearing compression deformities of multiple thoracolumbar vertebrae, including T6, T8, T9, T11, T1. The maximum vertebral height loss is visualized at T11 level with increased thoracolumbar junction kyphosis. Grade I anterolisthesis of L4 over L5 without spondylolysis. Dextroscoliosis of the thoracolumbar spine curvature. IMPRESSION: 1. Findings consistent with aspiration pneumonitis. Compared with the prior chest radiograph dated 04/08/2025, acquired at 04:52 hours, the pulmonary parenchymal findings are stable. Right PICC line and the feeding tube need to be repositioned. 2. Large right retroperitoneal hematoma extending along the iliopsoas and into the right iliacus, displacing the right kidney. 3. Several stable chronic and incidental findings are noted, as detailed in the body of the report. /[place]utton DICTATED BY: HENRIK FOX MD DATE: 04/08/252128 ELECTRONICALLY SIGNED BY: DATE: EXAM: CT Chest, Abdomen and Pelvis without Intravenous Contrast CLINICAL HISTORY: evaluation of sepsis. TECHNIQUE: Axial computed tomography images of the chest, abdomen and pelvis without intravenous contrast. Dose reduction technique was used including one or more of the following: automated exposure control, adjustment of mA and kV according to patient size, and/or iterative reconstruction. Total exam DLP is 1117 mGy x cm. CONTRAST: None. COMPARISON: Prior chest radiograph dated 04/08/2025, acquired at 04:52 hours. FINDINGS: CHEST: LUNGS: Endotracheal tube with its tip positioned 3.5 cm short of juanito. Moderate sized bilateral pleural effusions with atelectasis/consolidation of the lung bases. Multifocal areas of ground-glass opacities, mosaic attenuation are present in the remainder of the lung parenchyma bilaterally. PLEURAL SPACES: Moderate sized bilateral pleural effusions. No pneumothorax. HEART AND MEDIASTINUM: Left chest wall pacemaker with electrodes terminating in the lumen of the coronary sinus and the right heart chambers. Atheromatous calcification of the aortic arch and the coronary arteries. Right sided PICC line visualized with its tip terminating in the right brachiocephalic vein. Feeding tube visualized with its tip terminating at the gastroesophageal junction. Mild cardiomegaly. Coronary arterial calcifications present. Mitral and aortic valve annulus calcifications. No significant pericardial effusion. LYMPH NODES: No lymphadenopathy. ABDOMEN AND PELVIS: LIVER: Ill-defined hypodense area measuring 2 x 2.1 cm in the segment VII of the subcapsular region of the right hepatic lobe, without areas of calcification or fat in it. GALLBLADDER AND BILE DUCTS: Gallbladder is surgically absent. No biliary ductal dilatation. PANCREAS: Pancreas is atrophic. No pancreatic ductal dilatation or calculi. SPLEEN: Spleen is atrophic and shrunken with areas of capsular calcifications. ADRENAL GLANDS: Unremarkable. KIDNEYS, URETERS, AND BLADDER: Bilateral intrarenal segmental arterial calcifications. Multiple right sided renal calculi, measuring up to 4 mm. A Mcdowell's catheter is appropriately positioned in the bladder lumen. No hydronephrosis. No ureteral or bladder calculi. STOMACH AND BOWEL: Evidence of prior surgical intervention involving the stomach, incompletely evaluated due to lack of optimal luminal distension. Gastric bypass surgery status with appropriate position of the gastrojejunal anastomosis. No obstruction. No wall thickening. No CT evidence of colitis or acute diverticulitis. APPENDIX: No CT evidence for appendicitis. PERITONEUM: No free fluid. No free air. LYMPH NODES: No lymphadenopathy. REPRODUCTIVE: Uterus is not distinctly visualized. VASCULATURE: The abdominal aorta demonstrates atheromatous calcification without aneurysm or dissection. BONES AND SOFT TISSUES: Diffuse body wall edema. Right retroperitoneal space hyperdense collection, measuring approximately 14 x 7 x 25 cm, visualized on the anterior aspect of the iliopsoas. It is extending toward the right groin. The right iliacus muscle also appears bulky with similar hyperdense contents, likely representing hematoma. The collection is visualized in the retroperitoneal compartment and is displacing the right kidney anteriorly. Severe osteopenia. Chronic appearing compression deformities of multiple thoracolumbar vertebrae, including T6, T8, T9, T11, T1. The maximum vertebral height loss is visualized at T11 level with increased thoracolumbar junction kyphosis. Grade I anterolisthesis of L4 over L5 without spondylolysis. Dextroscoliosis of the thoracolumbar spine curvature. IMPRESSION: 1. Findings consistent with aspiration pneumonitis. Compared with the prior chest radiograph dated 04/08/2025, acquired at 04:52 hours, the pulmonary parenchymal findings are stable. Right PICC line and the feeding tube need to be repositioned. 2. Large right retroperitoneal hematoma extending along the iliopsoas and into the right iliacus, displacing the right kidney. 3. Several stable chronic and incidental findings are noted, as detailed in the body of the report. /[place] DICTATED BY: HENRIK FOX MD DATE: 04/08/252056 ELECTRONICALLY SIGNED BY: HENRIK FOX MD DATE: 04/08/252056 PATIENT: LORE OCONNELL MR#: [id number] : 1940 SEX: F AGE: 84 LOCATION: [facility] ORDER 1 STATUS: ADM IN REPORT#: [id number] SERVICE 0 REASON: HF ORDERING PHYSICIAN: BOYD GUERRA PAC PROCEDURE: ECHO CMP - ECHO 2-D COMPLETE APPROVED REPORT EXAM: Two-dimensional and M-mode echocardiogram with Doppler and color Doppler. INDICATION ICD: Elevated liver enzymes 2D Dimensions RVDd 5.0 cm LVEF(%) 54.9 (>50%) LA ESV INDEX (BP) 85.96 mL/m2 IVSd 0.8 (0.7-1.1cm) FS(%) 29 % LVDd 5.1 (3.8-5.6cm) LA (2D) 6.2 (1.6-4.0cm) PWd 1.2 (0.7-1.1cm) Ao Root(2D) 3.0 (2.0-3.7cm) IVSs 1.0 cm LVOT diam 2.2 (1.8-2.4cm) LVDs 3.6 (2.5-4.0cm) PWs 1.5 cm M-Mode Dimensions EPSS 0.9 cm LA (MM) 7.0 (1.6-4.0cm) Ao Root(MM) 3.4 (2.0-3.7cm) Aortic Valve AoV Vmax 1.7 m/s Ao Peak GR 11.9 mmHg LVOT Vmax 0.8 m/s AoV VTI 0.3 m Ao Mean GR 6.7 mmHg LVOT VTI 0.12 m VERONICA (VMAX) 1.64 cm2 Al P1/2T 575 ms VERONICA (VTI) 1.5 cm2 Mitral Valve MV E Vmax 81.2 cm/s DECEL Time 181 ms MV A Vmax 73.1 cm/s P 1/2 T 42 ms E/A ratio 1.1 MVA (PHT) 5.2 cm2 TDI E/E' Medial 14.3 E/E' Lateral 13.4 Medial E' Peak V 5.67 cm/s Lateral E' Peak V 6.04 cm/s Pulmonary Valve PV Vmax 1.2 m/s PI End Ximena. Jonel 142.2 cm/s PV Mean GR 2.7 mmHg PV Peak GR 5.6 mmHg Tricuspid Valve TR Vmax 2.6 m/s RAP (EST) 3 mmHg RVSP 30.0 mmHg TR Peak GR 27.0 mmHg Left Ventricle The left ventricle is normal size. There is global hypokinesis of the left ventricle. There is normal left ventricular wall thickness. LVEF is 30-35%. E/A flow is fused. Right Ventricle The right ventricle is severely dilated. Right ventricular systolic function is mildly reduced. Device lead is present in the right ventricle. Atria The left atrium is severely dilated. LASVI 86mL/m The interatrial septum is intact with no evidence for an atrial septal defect by color. Evidence of increased left atrial pressure with the atrial septum bowed to the right. The right atrium is severely dilated. Aortic Valve Aortic valve is trileaflet, mildly sclerotic and thickened but opens well. Mild aortic regurgitation is present. There is no aortic valvular stenosis. Mitral Valve The mitral valve is thickened. There is mild mitral valve regurgitation noted. There is no mitral valve stenosis. Tricuspid Valve The tricuspid valve is normal in structure. There is no tricuspid valve regurgitation noted. RVSP 30 mmHg Pulmonic Valve The pulmonary valve is normal in structure. There is trace of pulmonic valvular regurgitation. Great Vessels The aortic root is normal in size. The IVC is normal in size and collapses >50% with inspiration. Pericardium There is small pericardial effusion seen posteriorly. Other Information Quality : Adequate Rhythm : NSR Conclusion There is global hypokinesis of the left ventricle. LVEF is 30-35%. The right ventricle is severely dilated and hypokinetic. Device lead is present in the right ventricle. Left atrium is severely dilated. LASVI 86mL/m. No atrial septal defect by color. Evidence of increased left atrial pressure with the atrial septum bowed to the right. Mild aortic regurgitation. Thckened mitral valve leaflets. Mild mitral valve regurgitation. Small pericardial effusion seen posteriorly. DICTATED BY: KASH DUONG DO DATE: 04/07/25 0950 ELECTRONICALLY SIGNED BY: KASH DUONG DO DATE: 04/07/25 1247 ASSESSMENT: Acute on chronic kidney disease Anemia Retroperitoneal hemorrhage newly diagnosed via CT scan of the abdomen Acute hypoxic respiratory failure present on admission currently on mechanical ventilatory support via endotracheal tube Severe sepsis with shock Severe metabolic acidosis Hospital-acquired pneumonia Acute complicated cystitis Atrial fibrillation on chronic anticoagulation therapy Dilated cardiomyopathy ejection fraction 35-40% with moderate pulmonary hypotension Remote CVA Hx of Right lower extremity DVT History of right TKA Suspected AICD malfunction Status post AICD PLAN: Labs, diagnostic, radiologic exams reviewed and interpreted by myself and supervising physician. We have reviewed external records in detail Require close monitoring of renal function and electrolytes Order CBC, CMP, and electrolytes in am BiPAP, for respiratory distress Continue with IV pressors, Continue with antibiotics Monitor blood pressure adjust medication doses as needed Avoid hypotensive episodes May use Dilaudid 0.5 mg IV every 6 hours as needed for severe pain Monitor blood sugars Strict intake, output, and daily weight should be monitored Please renally adjust medications Avoid nephrotoxic and nonsteroidal drugs Avoid contrast if possible Will continue to monitor renal function, anemia, electrolytes Treatment plan discussed with patient Questions were answered We have discussed with the other team physicians in detail about the care plan We will continue to monitor the patient closely Total critical care time spent with patient, nursing staff, critical care team over 35 minutes ATTESTATION BY PHYSICIAN I have seen and examined the patient. I reviewed the documentation, medical decision making, and treatment plan as noted by the mid-level provider above. I agree with the findings and plan of care. BREANA YUSUF MD, [facility] Apr 19, 2025 09:15
--- NOTE | 2025-04-19 11:21 | PN ---
The patient is an 84-year-old female with a significant medical history of recurrent UTIs, chronic anemia, CKD, atrial fibrillation, dilated cardiomyopathy (EF 35% by echo; prior stress test EF 60%), biventricular pacemaker/AICD, and tolerance to all oral anticoagulants (warfarin, apixaban, rivaroxaban, dabigatran), remote CVA, and recent left knee replacement revision following a fall. She resides in a senior care facility. She presented to the ED with shortness of breaths and chest pain, progressing to acute hypoxic respiratory failure requiring intubation. Workup revealed septic shock with lactic acid greater than 6, suspected urinary source, and Sabrina positive urine. IV fluids, vasopressors (Levophed), and broad-spectrum antibiotics (doxycycline plus linezolid) were started. She was noted to be anemic and required PRBC transfusion. A right retroperitoneal hematoma was later identified; anticoagulation is currently held. The patient is now extubated on on BiPAP 12/6 FiO2 75%, hemodynamically marginal, but improved overall. She remains in rate controlled AFib. Hematology-Oncology is consulted for evaluation of anemia management in the setting of sepsis, CKD, blood loss, and recent hematoma. 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) Dilated cardiomyopathy, EF 35% Remote CVA Recurrent urinary tract infections CHF with recent biventricular pacemaker/AICD Right retroperitoneal hematoma Recent left knee revision (hardware replacement after fall) PSH: As mentioned above SH: Noncontributory FH: Noncontributory ALLERGIES: Coded Allergies: codeine (Unverified Allergy, Unknown, HALLUCINATION, 03/16/25) REVIEW OF SYSTEMS CONSTITUTIONAL: FEVER HEENT: JAUNDICE; No JAUNDICE; SORE THROAT; No SORE THROAT; SINUS PRESSURE; No S INUS PRESSURE, No VISION CHANGES RESPIRATORY: SHORTNESS OF BREATH CARDIOVASCULAR: PALPATIONS; No PALPATIONS, No DYSPNEA ON EXERTION, No SYNCOPE GASTROINTESTINAL: No NAUSEA, No VOMITING, No DIARRHEA, No DYSPHAGIA, No CONSTIPATION, No ABDOMINAL PAIN, No HEMATEMESIS, No HEMATOCHEZIA, No MELENA GENITOURINARY: No DYSURIA, No HEMATURIA HEMATOLOGIC/LYMPHATIC: No EASY BRUISING, No CERVICAL ADENOPATHY, No AXILLARY ADENOPATHY, No INGUINAL ADENOPATHY MUSCULOSKELETAL: BONE PAIN; No BONE PAIN, No MASS; NORMAL RANGE OF MOTION; No N ORMAL RANGE OF MOTION SKIN/BREASTS: BREAST MASS; No BREAST MASS, No NIPPLE INVERSION, No RASH NEUROLOGICAL: No WEAKNESS-EXTREMETIES, No DIPLOPIA, No NUMBNESS, No TINGLING PSYCHOLOGICAL: No SUICIDAL IDEATION PHYSICAL EXAM GENERAL: acute respiratory distress. VITAL SIGNS: Reviewed HEENT: The sclerae are clear. The pupils are equal and reactive to light. The oropharyngeal cavity is within normal limits. NECK: Supple without lymphadenopathy. CHEST: Crackles to the lung bilaterally HEART: Sounds are regular and rhythmic. ABDOMEN: No guarding or rigidity. Bowel sounds positive. EXTREMITIES: pitting edema. No petechial lesions or bruises. SKIN: No bruises, rash, or petechial lesions. NEUROLOGICAL: Patient is not alert nor oriented. IMPRESSION Chronic anemia. Hemoglobin level is stable at 8.5 g/deciliter. Sepsis with lactic acidosis Retroperitoneal hematoma CKD with acute on chronic renal failure Thrombocytopenia AFib with intolerance to all oral anticoagulants Acute hypoxic respiratory failure PLAN 1. Patient with severe failure to thrive. Change the family make the patient DNR/DNI. 2. Hemoglobin level is 8.7 g/deciliter. 3. Patient with manual platelet count within normal. 4. Continue care as per cell technician 5. We will sign off on this patient at this time. Please reconsult if new concerns arise. Vitals/Labs Vital Signs Date Time Temp Pulse Resp B/P (MAP) Pulse Ox O2 Delivery O2 Flow Rate FiO2 04/19/25 09:39 144/109 04/19/25 06:45 91 15 100 04/19/25 06:18 65 04/19/25 04:00 97.3 BIPAP 04/16/25 14:32 5.0 Laboratory Tests 04/19/25 05:05 Medications Current Medications Ceftriaxone Sodium 1 gm ONCE ONCE IVPB Last administered on 04/06/25at 10:33; Start 04/06/25 at 08:30; Stop 04/06/25 at 08:32; Status DC Azithromycin 250 ml @ 250 mls/hr ONCE IVPB Last administered on 04/06/25at 10:45; Start 04/06/25 at 09:00; Stop 04/06/25 at 10:00; Status DC Albuterol 2 udvial ONCE ONCE IH Last administered on 04/06/25at 10:26; Start 04/06/25 at 08:30; Stop 04/06/25 at 08:32; Status DC Methylprednisolone Sodium Succinate 125 mg ONCE ONCE IVP Last administered on 04/06/25at 10:48; Start 04/06/25 at 08:30; Stop 04/06/25 at 08:32; Status DC Sodium Chloride 1,000 ml @ 0 mls/hr ONCE ONCE IV Last administered on 04/06/25at 08:30; Start 04/06/25 at 08:30; Stop 04/06/25 at 08:32; Status DC Diazepam 5 mg Q4H PRN IV Last administered on 04/07/25at 15:28; Start 04/06/25 at 09:00; Stop 04/12/25 at 16:50; Status DC Diazepam 10 mg STK-MED ONCE .ROUTE; Start 04/06/25 at 08:35; Stop 04/06/25 at 08:35; Status DC Ketamine HCl 50 mg STK-MED ONCE .ROUTE; Start 04/06/25 at 08:47; Stop 04/06/25 at 08:47; Status DC Norepinephrine 250 ml @ As Directed STK-MED ONCE IV; Start 04/06/25 at 08:59; Stop 04/06/25 at 08:59; Status DC Fentanyl Citrate 100 ml @ 2.5 mls/hr PROTOCOL IV Last administered on 04/08/25at 01:39; Start 04/06/25 at 09:30; Stop 04/08/25 at 01:51; Status DC Midazolam HCl 100 ml ONCE ONCE IV Last administered on 04/06/25at 09:31; Start 04/06/25 at 09:30; Stop 04/06/25 at 09:31; Status DC Vancomycin HCl 1 each AD IV; Start 04/06/25 at 10:00; Stop 04/09/25 at 13:28; Status DC Albuterol 1 UDVIAL [id number] IH; Start 04/06/25 at 12:00; Stop 04/06/25 at 11:12; Status DC Pharmacy Profile Note 1 each Q12H9 MISC; Start 04/06/25 at 21:00; Stop 04/06/25 at 10:19; Status DC Sodium Chloride 1,000 ml @ 100 mls/hr Q10H IV Last administered on 04/06/25at 10:51; Start 04/06/25 at 10:00; Stop 04/06/25 at 11:12; Status DC Norepinephrine 250 ml @ 0 mls/hr PROTOCOL IV Last administered on 04/06/25at 21:18; Start 04/06/25 at 10:30; Stop 04/06/25 at 21:28; Status DC Vancomycin HCl 250 ml @ 125 mls/hr ONCE ONCE IV Last administered on 04/06/25at 14:30; Start 04/06/25 at 10:30; Stop 04/06/25 at 12:29; Status DC Meropenem 1 gm Q12H IVPB Last administered on 04/07/25at 23:48; Start 04/06/25 at 11:00; Stop 04/08/25 at 07:56; Status DC Ketamine HCl 100 mg ONCE ONCE IV Last administered on 04/06/25at 10:28; Start 04/06/25 at 08:50; Stop 04/06/25 at 10:19; Status DC Vancomycin HCl 750 mg Q24H IVPB Last administered on 04/07/25at 08:58; Start 04/07/25 at 09:00; Stop 04/08/25 at 07:56; Status DC Sodium Chloride 1,000 ml @ 100 mls/hr Q10H IV; Start 04/06/25 at 11:30; Stop 04/07/25 at 12:44; Status DC Dextrose 50 ml STK-MED ONCE IV Last administered on 04/06/25at 16:24; Start 04/06/25 at 16:22; Stop 04/06/25 at 16:22; Status DC Dextrose 50 ml AD PRN IV Last administered on 04/07/25at 16:56; Start 04/06/25 at 16:30; Stop 05/06/25 at 16:29 Glucagon 1 mg AD PRN IM; Start 04/06/25 at 16:30; Stop 05/06/25 at 16:29 Lactated Ringer's 1,000 ml BOLUS IV; Start 04/06/25 at 16:30; Stop 04/08/25 at 07:52; Status DC Enoxaparin Sodium 30 mg DAILY SQ; Start 04/07/25 at 08:00; Stop 04/07/25 at 00:16; Status DC Sodium Bicarbonate 100 meq ONCE ONCE IV Last administered on 04/06/25at 17:57; Start 04/06/25 at 18:00; Stop 04/06/25 at 18:01; Status DC Dexmedetomidine/ Sodium Chloride 400 mcg PROTOCOL IV Last administered on 04/09/25at 09:22; Start 04/06/25 at 18:30; Stop 04/10/25 at 11:09; Status DC Dexmedetomidine/ Sodium Chloride 400 mcg STK-MED ONCE IV Last administered on 04/06/25at 18:20; Start 04/06/25 at 18:06; Stop 04/06/25 at 18:07; Status DC Dextrose 1,000 ml @ 75 mls/hr [id number] IV Last administered on 04/06/25at 20:29; Start 04/06/25 at 20:30; Stop 04/07/25 at 12:45; Status DC Sodium Chloride 500 ml @ 500 mls/hr Q1H IV Last administered on 04/06/25at 21:19; Start 04/06/25 at 21:00; Stop 04/07/25 at 02:12; Status DC Vasopressin 40 units/Sodium Chloride 40 ml @ 0 mls/hr PROTOCOL IV Last administered on 04/07/25at 04:33; Start 04/06/25 at 21:30; Stop 04/11/25 at 11:49; Status DC Norepinephrine Bitartrate 32 mg/ Sodium Chloride 250 ml @ 0 mls/hr Q0M STAT IV Last administered on 04/06/25at 21:50; Start 04/06/25 at 21:20; Stop 04/06/25 at 21:31; Status DC Phenylephrine HCl 100 mg/Sodium Chloride 250 ml @ 0 mls/hr AD PRN IV; Start 04/06/25 at 22:00; Stop 04/11/25 at 11:49; Status DC Epinephrine HCl 10 mg/Sodium Chloride 250 ml @ 0 mls/hr PROTOCOL IV; Start 04/06/25 at 22:00; Stop 04/11/25 at 11:49; Status DC Ipratropium [place] 0.5 mg [id number] IH; Start 04/07/25 at 22:10; Stop 04/07/25 at 11:41; Status DC Methylprednisolone Sodium Succinate 60 mg Q6H IVP Last administered on 04/08/25at 03:43; Start 04/06/25 at 22:00; Stop 04/08/25 at 07:50; Status DC Albumin Human 50 ml @ 0 mls/hr ONCE ONCE IV Last administered on 04/06/25at 23:13; Start 04/06/25 at 22:30; Stop 04/06/25 at 22:31; Status DC Sodium Bicarbonate 150 meq ONCE ONCE IV Last administered on 04/06/25at 23:13; Start 04/06/25 at 23:00; Stop 04/06/25 at 23:07; Status DC Calcium Gluconate 1 gm ONCE ONCE IV Last administered on 04/06/25at 23:14; Start 04/06/25 at 23:00; Stop 04/06/25 at 23:06; Status DC Ipratropium [place] 0.5 mg STK-MED ONCE IH Last administered on 04/06/25at 23:39; Start 04/06/25 at 22:49; Stop 04/06/25 at 22:49; Status DC Pantoprazole Sodium 40 mg ONCE ONCE IVP Last administered on 04/07/25at 01:02; Start 04/07/25 at 00:30; Stop 04/07/25 at 00:31; Status DC Pantoprazole Sodium 40 mg BID IVP Last administered on 04/19/25at 09:43; Start 04/07/25 at 09:00; Stop 05/07/25 at 08:59 Sodium Bicarbonate 150 meq/Dextrose 1,000 ml @ 50 mls/hr Q20H IVP Last administered on 04/07/25at 01:02; Start 04/07/25 at 00:30; Stop 04/08/25 at 11:02; Status DC Norepinephrine Bitartrate 32 mg/ Sodium Chloride 250 ml @ 0 mls/hr PROTOCOL IV Last administered on 04/08/25at 01:59; Start 04/07/25 at 08:30; Stop 04/18/25 at 09:14; Status DC Sodium Bicarbonate 200 meq ONCE ONCE IV Last administered on 04/07/25at 08:56; Start 04/07/25 at 08:30; Stop 04/07/25 at 08:34; Status DC Sodium Bicarbonate 50 ml @ As Directed STK-MED ONCE .ROUTE; Start 04/07/25 at 08:30; Stop 04/07/25 at 08:30; Status DC Sodium Bicarbonate 100 meq ONCE ONCE IV Last administered on 04/07/25at 08:57; Start 04/07/25 at 09:00; Stop 04/07/25 at 09:01; Status DC Sodium Bicarbonate 50 ml @ As Directed STK-MED ONCE .ROUTE; Start 04/07/25 at 09:04; Stop 04/07/25 at 09:04; Status DC Ipratropium [place] 0.5 mg [id number] IH Last administered on 04/19/25at 06:22; Start 04/07/25 at 12:00; Stop 05/07/25 at 11:59 Sodium Chloride 154 meq/Dextrose 1,000 ml @ 50 mls/hr Q20H IV Last administered on 04/07/25at 13:10; Start 04/07/25 at 13:00; Stop 04/08/25 at 07:58; Status DC Sodium Bicarbonate 200 meq STAT ONCE IV Last administered on 04/07/25at 16:02; Start 04/07/25 at 16:00; Stop 04/07/25 at 16:01; Status DC Midazolam HCl 2 mg Q2HPRN PRN IVP Last administered on 04/12/25at 17:05; Start 04/07/25 at 16:00; Stop 04/14/25 at 13:15; Status DC Sodium Bicarbonate 100 meq ONCE ONCE IV Last administered on 04/07/25at 18:47; Start 04/07/25 at 18:30; Stop 04/07/25 at 18:37; Status DC Calcium Gluconate 1 gm ONCE ONCE IV; Start 04/07/25 at 18:35; Stop 04/07/25 at 18:36; Status UNV Calcium Gluconate 1 gm/Sodium Chloride 100 ml @ 0 mls/hr ONCE ONCE IV Last administered on 04/07/25at 18:53; Start 04/07/25 at 19:00; Stop 04/07/25 at 19:01; Status DC Sodium Bicarbonate 50 meq ONCE ONCE IV Last administered on 04/07/25at 20:57; Start 04/07/25 at 20:00; Stop 04/07/25 at 20:01; Status DC Calcium Gluconate 1 gm ONCE ONCE IV; Start 04/07/25 at 20:00; Stop 04/07/25 at 20:01; Status UNV Calcium Gluconate 1 gm/Sodium Chloride 100 ml @ 100 mls/hr ONCE ONCE IV Last administered on 04/07/25at 20:58; Start 04/07/25 at 20:30; Stop 04/07/25 at 21:29; Status DC Fentanyl/Sodium Chloride 250 ml @ 0.1 mls/hr PROTOCOL IV Last administered on 04/12/25at 01:26; Start 04/08/25 at 02:00; Stop 04/12/25 at 12:22; Status DC Methylprednisolone Sodium Succinate 60 mg Q6H IVP Last administered on 04/11/25at 08:48; Start 04/08/25 at 10:00; Stop 04/11/25 at 11:49; Status DC Vancomycin HCl 750 mg Q48H IVPB Last administered on 04/09/25at 09:56; Start 04/09/25 at 09:00; Stop 04/09/25 at 13:28; Status DC Meropenem 1 gm Q24H IVPB Last administered on 04/10/25at 00:08; Start 04/08/25 at 23:00; Stop 04/10/25 at 22:53; Status DC Pharmacy Profile Note 1 each ONCE MISC; Start 04/08/25 at 08:30; Stop 04/08/25 at 08:51; Status DC Sodium Chloride 1,000 ml @ 500 mls/hr Q2H IV; Start 04/08/25 at 08:30; Stop 04/08/25 at 08:51; Status DC Micafungin Sodium 100 ml @ 100 mls/hr Q24H IV Last administered on 04/08/25at 09:19; Start 04/08/25 at 10:00; Stop 04/09/25 at 09:59; Status DC Sodium Chloride 500 ml @ 500 mls/hr Q1H IV Last administered on 04/08/25at 09:19; Start 04/08/25 at 08:48; Stop 04/08/25 at 11:04; Status DC Rocuronium [place] 50 mg STK-MED ONCE IV; Start 04/06/25 at 10:04; Stop 04/08/25 at 10:05; Status DC Sodium Bicarbonate 150 meq/Dextrose/Water 1,000 ml @ 100 mls/hr Q10H IVP; Start 04/08/25 at 11:00; Stop 04/08/25 at 11:07; Status DC Sodium Bicarbonate 150 meq/Dextrose 1,000 ml @ 100 mls/hr Q10H IVP Last administered on 04/08/25at 21:59; Start 04/08/25 at 11:30; Stop 04/09/25 at 09:46; Status DC Pharmacy Profile Note 1 each ONCE MISC; Start 04/08/25 at 13:30; Stop 04/08/25 at 11:16; Status DC Sodium Chloride 500 ml @ 500 mls/hr Q1H ONCE IV Last administered on 04/08/25at 13:56; Start 04/08/25 at 14:30; Stop 04/08/25 at 15:29; Status DC Sodium Chloride 500 ml @ 500 mls/hr Q1H ONCE IV Last administered on 04/08/25at 18:30; Start 04/08/25 at 19:30; Stop 04/08/25 at 20:29; Status DC Sodium Chloride 500 ml @ 500 mls/hr Q1H ONCE IV Last administered on 04/09/25at 00:43; Start 04/09/25 at 00:30; Stop 04/09/25 at 01:29; Status DC Furosemide 20 mg Q8H IV Last administered on 04/10/25at 08:54; Start 04/08/25 at 15:30; Stop 04/10/25 at 11:09; Status DC Calcium Gluconate 1 gm ONCE IVPB; Start 04/08/25 at 17:00; Stop 05/08/25 at 16:59; Status UNV Calcium Gluconate 1 gm/Sodium Chloride 100 ml @ 0 mls/hr ONCE ONCE IV Last administered on 04/08/25at 17:12; Start 04/08/25 at 17:00; Stop 04/08/25 at 17:01; Status DC Magnesium Sulfate 50 ml @ 0 mls/hr PROTOCOL IV Last administered on 04/12/25at 08:56; Start 04/09/25 at 05:00; Stop 05/09/25 at 04:59 Calcium Gluconate 1 gm PROTOCOL IVPB Last administered on 04/09/25at 05:17; Start 04/09/25 at 05:00; Stop 05/09/25 at 04:59 Sodium Chloride 50 ml AD IV; Start 04/09/25 at 05:00; Stop 04/09/25 at 05:12; Status DC Pharmacy Profile Note 1 each ONCE MISC; Start 04/09/25 at 10:00; Stop 04/09/25 at 09:58; Status DC Dextrose/Sodium Chloride 1,000 ml @ 75 mls/hr [id number] IV Last administered on 04/09/25at 15:00; Start 04/09/25 at 10:00; Stop 04/10/25 at 21:01; Status DC Sodium Chloride 500 ml @ 0 mls/hr Q0M IV Last administered on 04/09/25at 10:04; Start 04/09/25 at 10:00; Stop 04/10/25 at 11:59; Status DC Sodium Chloride 500 ml @ 0 mls/hr Q0M IV; Start 04/09/25 at 14:00; Stop 04/10/25 at 11:59; Status DC Sodium Chloride 500 ml @ 0 mls/hr Q0M IV; Start 04/09/25 at 18:00; Stop 04/10/25 at 11:59; Status DC Sodium Chloride 500 ml @ 0 mls/hr Q0M IV Last administered on 04/09/25at 22:00; Start 04/09/25 at 22:00; Stop 04/10/25 at 11:59; Status DC Sodium Chloride 500 ml @ 0 mls/hr Q0M IV Last administered on 04/10/25at 02:00; Start 04/10/25 at 02:00; Stop 04/10/25 at 11:59; Status DC Sodium Chloride 500 ml @ 0 mls/hr Q0M IV Last administered on 04/10/25at 06:08; Start 04/10/25 at 06:00; Stop 04/10/25 at 11:59; Status DC Pharmacy Profile Note 1 each ONCE MISC; Start 04/09/25 at 13:30; Stop 04/09/25 at 13:37; Status DC Linezolid 300 ml @ 150 mls/hr Q12H IV; Start 04/09/25 at 14:00; Stop 04/09/25 at 16:14; Status DC Linezolid 300 ml @ 150 mls/hr Q12H IV Last administered on 04/18/25at 15:33; Start 04/09/25 at 16:30; Stop 04/18/25 at 19:29; Status DC Furosemide 100 mg/ Sodium Chloride 100 ml @ 15 mls/hr PROTOCOL IV Last administered on 04/17/25at 10:00; Start 04/10/25 at 11:30; Stop 04/17/25 at 15:49; Status DC Dobutamine HCl/ Dextrose 250 ml @ 45.518 mls/ hr PROTOCOL IV Last administered on 04/19/25at 05:18; Start 04/10/25 at 11:30; Stop 05/10/25 at 11:29 Doxycycline Hyclate 250 ml @ 125 mls/hr Q12H IV Last administered on 04/18/25at 23:14; Start 04/10/25 at 11:30; Stop 04/20/25 at 11:29 Insulin Human Regular INSULIN SLIDING SCAL... Q6H6 SQ Last administered on 04/18/25at 17:52; Start 04/10/25 at 12:00; Stop 05/10/25 at 11:59 Thiamine HCl 100 mg DAILY IM Last administered on 04/19/25at 09:41; Start 04/11/25 at 09:00; Stop 05/11/25 at 08:59 Vitamin B Complex/ Vit C/Folic Acid 1 cap DAILY PO Last administered on 04/19/25at 09:43; Start 04/11/25 at 09:00; Stop 05/11/25 at 08:59 Meropenem 1 gm Q24H IVPB Last administered on 04/19/25at 03:16; Start 04/11/25 at 02:00; Stop 04/21/25 at 01:59 Iron Sucrose 300 mg/Sodium Chloride 250 ml @ 83 mls/hr ONCE ONCE IV Last administered on 04/11/25at 21:31; Start 04/11/25 at 21:00; Stop 04/12/25 at 00:00; Status DC Epoetin Prashanth-epbx 10,000 unit [id number] SQ Last administered on 04/19/25at 09:44; Start 04/12/25 at 09:00; Stop 05/12/25 at 08:59 Methylprednisolone Sodium Succinate 40 mg Q6H IVP Last administered on 04/13/25at 10:39; Start 04/11/25 at 16:00; Stop 04/13/25 at 16:54; Status DC Fentanyl Citrate 25 mcg Q4H PRN IVP Last administered on 04/12/25at 17:12; Start 04/12/25 at 12:30; Stop 04/14/25 at 13:15; Status DC Artificial Tears 2 DROPS Q4H OU Last administered on 04/14/25at 13:14; Start 04/12/25 at 17:00; Stop 04/14/25 at 13:15; Status DC Ziprasidone 10 mg ONCE ONCE IM; Start 04/12/25 at 17:30; Stop 04/12/25 at 17:19; Status DC Dexmedetomidine/ Sodium Chloride 400 mcg PROTOCOL IV Last administered on 04/12/25at 19:00; Start 04/12/25 at 18:30; Stop 04/14/25 at 13:15; Status DC Methylprednisolone Sodium Succinate 40 mg Q12H9 IVP Last administered on 04/19/25at 09:43; Start 04/13/25 at 21:00; Stop 05/13/25 at 20:59 Gabapentin 100 mg TID PO Last administered on 04/18/25at 09:13; Start 04/14/25 at 14:00; Stop 04/18/25 at 12:07; Status DC Hydromorphone HCl 0.2 mg Q4H PRN IVP; Start 04/14/25 at 11:30; Stop 04/19/25 at 11:29 Lidocaine 1 patch DAILY TP Last administered on 04/19/25at 09:44; Start 04/15/25 at 09:00; Stop 05/15/25 at 08:59 Acetaminophen 650 mg Q6H PRN RC; Start 04/14/25 at 20:30; Stop 05/14/25 at 20:29 Lidocaine 1 patch STK-MED ONCE TP Last administered on 04/14/25at 20:57; Start 04/14/25 at 20:55; Stop 04/14/25 at 20:56; Status DC Acetaminophen 1,000 mg Q6H6 PRN IVPB Last administered on 04/15/25at 12:15; Start 04/15/25 at 12:30; Stop 05/15/25 at 12:29 Bacitracin apply to right and left thi... BID TP Last administered on 04/19/25at 09:45; Start 04/15/25 at 21:00; Stop 05/15/25 at 20:59 Metolazone 5 mg [id number] PO Last administered on 04/19/25at 05:22; Start 04/17/25 at 06:30; Stop 05/17/25 at 06:29 Fluconazole/ Sodium Chloride 100 ml @ 100 mls/hr DAILY IV Last administered on 04/19/25at 09:42; Start 04/17/25 at 14:00; Stop 05/17/25 at 13:59 Bumetanide 2 mg BID IVP Last administered on 04/19/25at 09:43; Start 04/17/25 at 21:00; Stop 05/17/25 at 20:59 Norepinephrine Bitartrate Protocol PROTOCOL IV Last administered on 04/18/25at 15:35; Start 04/17/25 at 19:00; Stop 05/17/25 at 18:59 Gabapentin 100 mg BID PO Last administered on 04/19/25at 09:40; Start 04/18/25 at 21:00; Stop 05/14/25 at 20:59 LAWR[place] SO Apr 19, 2025 11:21
--- NOTE | 2025-04-19 11:29 | PN ---
[facility] PROGRESS NOTE Date Patient Seen: Apr 19, 2025 Time of Visit: 11:28 Supervising Physician: [ Dr. Manrique] Primary Care Physician: SMAIA MENDOZA MD Outpatient Specialists: [ ] Inpatient Consults: BIS PROBLEM LIST: Large right retroperitoneal hematoma displacing the right kidney, present on admission Acute hypoxic respiratory failure present on admission Severe sepsis with shock Severe metabolic acidosis Hospital-acquired pneumonia Acute complicated cystitis Severe anemia, requiring transfusion Acute on chronic kidney disease Atrial fibrillation on chronic anticoagulation therapy Dilated cardiomyopathy ejection fraction 35-40% with moderate pulmonary hypotension Remote CVA Hx of Right lower extremity DVT Suspected AICD malfunction Status post AICD INTERVAL HISTORY: Patient was seen and examined family at bedside. Labs an imaging reviewed. Family at bedside, cased discussed with daughter in length. Patient requiring vasopressors to maintain blood pressure. Patient continues on Bipap with increase 02 requirement, 80% FiO2. Patient decreased urine output, 100 ml in last 24 hours. BUN and creatinine continue to climb. Continues on the Dobutrex, Bumex,and metolazone Plan: Continue on Merrem, doxy and Zyvox per ID. Continue with BiPAP. Family has requested DNR/DNI. Continue to monitor H&H. Transfuse on a p.r.n. basis. 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 The patient is unable to tolerate Xarelto, Eliquis, nor Pradaxa, nor warfarin. We will continue to follow hematology recs. Prognosis is poor. We will monitor closely. Family thinking about possible comfort measures. Total critical care time spent 55 minutes, this excludes any procedures performed or any time spent in educational or teaching. REVIEW OF SYSTEMS: On bipap and obtunded. PHYSICAL EXAM: GENERAL: obtunded HEENT: , EOMI, Sclera non icteric, moist mucosa NECK: Supple, no JVD, trachea midline LUNGS: Decreased breath sounds, no wheezing. HEART: Irregular rate. Normal S1 and S2, without murmurs ABD: Abdomen soft, nontender. Bowel sounds present large right retroperitoneal hematoma EXT: 3+ edema to the upper extremities bilaterally with some weeping, 4+ edema to the lower extremities bilaterally. NEURO: A&O times1 Vital Signs (last 8hr) Date Time Temp Pulse Resp B/P (MAP) Pulse Ox O2 Delivery O2 Flow Rate FiO2 04/19/25 09:39 144/109 04/19/25 06:45 91 15 144/109 (121) 100 04/19/25 06:30 91 18 122/82 (95) 100 04/19/25 06:20 16 16 04/19/25 06:18 91 25 65 04/19/25 06:00 91 18 99/60 (73) 100 04/19/25 05:45 91 17 134/88 (103) 100 04/19/25 05:30 91 17 93/52 (66) 100 04/19/25 05:18 108/60 04/19/25 05:15 91 14 94/40 (58) 99 04/19/25 05:00 91 19 108/60 (76) 100 04/19/25 04:45 91 17 94/57 (69) 100 04/19/25 04:30 91 16 94/38 (56) 100 04/19/25 04:15 91 18 98/51 (67) 100 04/19/25 04:00 97.3 BIPAP 80 04/19/25 04:00 91 16 98/57 (71) 100 04/19/25 04:00 98 Bi-PAP+ 80 04/19/25 03:45 91 16 92/50 (64) 100 04/19/25 03:30 91 16 95/58 (70) 100 LABS: Hematology Labs: Test 04/19/25 05:05 Range/Units White Blood Count 11.6 H 4.8-10.8 K/uL Red Blood Count 2.77 L 4.00-5.50 MIL/uL Hemoglobin 8.7 L 12.0-16.0 g/dL Hematocrit 26.0 L 36-48 % Mean Corpuscular Volume 93.9 79-99 fL Mean Corpuscular Hemoglobin 31.4 27.0-33.0 pg Mean Corpuscular Hemoglobin Concent 33.5 32.0-36.0 g/dL Red Cell Distribution Width 17.9 H 11.0-15.5 % Platelet Count 95 L 130-400 K/uL Mean Platelet Volume 11.5 H 7.5-10.5 fL Immature Granulocyte % (Auto) 0.4 0-1 % Neutrophils (%) (Auto) 96.4 H 40.0-77.0 % Lymphocytes (%) (Auto) 1.5 L 21.0-51.0 % Monocytes (%) (Auto) 1.5 L 3.0-13.0 % Eosinophils (%) (Auto) 0.0 0.0-8.0 % Basophils (%) (Auto) 0.2 0.0-5.0 % Neutrophils # (Auto) 11.2 H 1.8-7.7 K/uL Lymphocytes # (Auto) 0.2 L 1.0-4.8 K/uL Monocytes # (Auto) 0.2 0.1-1.0 K/uL Eosinophils # (Auto) 0.00 0.00-0.70 K/uL Basophils # (Auto) 0.02 0.00-0.20 K/uL Absolute Immature Granulocyte (auto 0.05 0-1 K/uL Nucleated Red Blood Cells 0.9 H 0.0-0.19 % Chemistry Labs: Test 04/19/25 05:06 04/19/25 05:05 04/18/25 10:02 Range/Units Whole Blood Glucose 143 H 70-110 MG/DL Sodium Level 136 136-145 mmol/L Potassium Level 3.7 3.5-5.1 mmol/L Chloride Level 97 L 101-111 mmol/L Carbon Dioxide Level 22 21-32 mmol/L Blood Urea Nitrogen 132 *H 7-18 mg/dL Creatinine 3.9 H 0.5-1.0 mg/dL Glomerular Filtration Rate Calc 11 >90 mL/min Random Glucose 147 H 70-105 mg/dL Lactic Acid Level 3.6 H 0.8-2.5 mmol/L Total Calcium 7.6 L 8.5-10.1 mg/dL Phosphorus Level 9.8 H 2.5-4.9 mg/dL Magnesium Level 1.90 1.80-2.40 mg/dL Total Bilirubin 1.5 H 0.2-1.0 mg/dL Aspartate Amino Transf (AST/SGOT) 32 10-37 U/L Alanine Aminotransferase (ALT/SGPT) 67 12-78 U/L Alkaline Phosphatase 142 H 50-136 U/L Total Protein 3.9 L 6.0-8.3 g/dL Albumin 1.5 L 3.5-5.0 g/dL Ammonia < 10 L 11-32 umol/L Coagulation Labs: Test 04/18/25 04:00 Range/Units Prothrombin Time 13.6 H 9.6-11.6 SEC Prothromb Time International Ratio 1.32 H 0.85-1.15 DIAGNOSTICS / RADIOLOGY RESULTS: [ ] PLAN NEURO: Minimize central acting medications as possible. Fall Precautions. Well lighted room through the day and minimize interruptions through the night to prevent acute delirium. PULMONARY: On mechanical ventilator support via endotracheal tube at this time CARDIOVASCULAR: Follow hemodynamics. Titrate vasopressor to keep MAP >65 or systolic blood pressure >95mmHg DIPS: [ Levophed ] GI & NUTRITION: Continue nutritional support Aspirations precautions Prokinetic agents and laxatives as needed KIDNEYS & ELECTROLYTES: Strict monitoring of intake and output Daily weights Avoid nephrotoxic agents Monitor electrolytes and replace as needed Goal urine output of 30mL/hr or 0.5mL/kg/hr ENDOCRINE: Maintain blood glucose between 100-180 at all times. Insulin sliding scale for blood glucose management INFECTIOUS DISEASE: Trend temperature. Pittman-culture if febrile. Micro: [Pending results ] Antibiotics: [ As per I and D] HEMATOLOGY & COAGULATION: Monitor H&H. Keep Hgb > 7 Transfuse 1 unit of PRBC for Hgb < 7 Transfuse 1 pack of platelets of platelets < 20, 000 Watch for any signs and symptoms of bleeding SKIN: Pressure ulcer prevention per facility protocol Rehab: PT/OT Prophylaxis: GI: [ Protonix 40 mg IV b.i.d.] DVT: [SCDs to the lower extremities ] Code Status: Full Resuscitation Disposition: [Continue medical management in the ICU ] PACHECO TOBAR AGACN Apr 19, 2025 11:29
[2025-04-19 11:55] LABS: ABG BASE EXCESS -2.9 mmol/L (-2.0-3.0); ABG HCO3 21.5 mmol/L (21.0-28.0); ABG OXYGEN SATURATION 98.1 % (94.0-98.0); ABG PCO2 37 mmHg (32-45); ABG PH 7.387 (7.350-7.450); PO2, ARTERIAL BG 113.8 mmHg (83.0-108.0); TEMPERATURE, CELSIUS BG 37.0 CELSIUS (35.5-37.0); VENT MODE, BG BIPAP 12-6 (ROOM AIR)
--- NOTE | 2025-04-19 14:11 | HMCIMG ---
EXAM: CR Chest, 1 View. CLINICAL HISTORY: HF COMPARISON: 04/18/2025 FINDINGS: The nasogastric tube tip is seen below the left hemidiaphragm. Right PICC catheter with the tip in the superior vena cava. LUNGS: Slight interval worsening of the bilateral perihilar and basilar airspace disease. PLEURAL SPACES: No pneumothorax. Interval worsening of the right pleural effusion, with a stable small left pleural effusion. MEDIASTINUM: Mild stable cardiomegaly with mild pulmonary vascular congestion. Atherosclerotic aortic arch. Left pacemaker with intact leads in place. BONES: No aggressive appearing osseous lesion seen. IMPRESSION: 1. Interval worsening of bilateral perihilar and basilar airspace disease may represent pulmonary edema. 2. Worsening right pleural effusion; stable small left pleural effusion. 3. Mild cardiomegaly with pulmonary vascular congestion, unchanged. 4. The nasogastric tube tip is seen below the left hemidiaphragm. 5. Right PICC catheter with the tip in the superior vena cava. /[place]
--- NOTE | 2025-04-19 14:36 | NUR ---
Patient placed on comfort measures at this time. All medications to be discontinued except for PRN Ativan and Morphine. Patient's daughter stated to the TITLE OFFICER that she wants to continue with Levophed and Dobutamine drips until her brother arrives. Patient currently on Levophed and Dobutamine. I will turn off the medications once the brother arrives.
--- NOTE | 2025-04-19 15:22 | PN ---
INFECTIOUS DISEASE PROGRESS NOTE Date of Service: Apr 19, 2025 SUBJECTIVE: This 84-year-old female patient is being seen in the ICU. Patient remains afebrile. Patient remains on BiPAP. Continues on Merrem, doxycycline, and fluconazole. WBCs are slowly trending down 11.6. Hemoglobin of 8.7. Cre atinine of 3.9 [id number] BUN. Daughters at bedside stating they have decided to place patient and comfort measures. PHYSICAL EXAM EYES: Anicteric. Pupils equal and reactive. HENT: No oral thrush seen, moist Oral mucosa NECK: Supple, no JVD or thyromegaly. LUNGS: On continuous BiPAP support CARDIOVASCULAR: S1, S2 regular. No murmur heard. ABDOMEN: Soft, non tender, bowel sounds present. CENTRAL NERVOUS SYSTEM: Continuous BiPAP support. SKIN: No rashes, no swelling. LYMPHATICS: No peripheral lymphadenopathy MUSCULOSKELETAL: No joint swelling, erythema or tenderness. EXTREMITIES: No cyanosis or clubbing. Generalized edema, improving. BACK: No deformity, no pressure ulcer. GENITOURINARY: No dysuria or hematuria, Mcdowell catheter. Vital Sign (Last 12 Hours) 04/19/25 04/19/25 04/19/25 04/19/25 03:30 03:45 04:00 04:00 Pulse 91 91 91 Resp 16 16 16 B/P (MAP) 95/58 (70) 92/50 (64) 98/57 (71) Pulse Ox 100 100 98 100 O2 Delivery Bi-PAP+ FiO2 80 04/19/25 04/19/25 04/19/25 04/19/25 04:00 04:15 04:30 04:45 Temp 97.3 Pulse 91 91 91 Resp 18 16 17 B/P (MAP) 98/51 (67) 94/38 (56) 94/57 (69) Pulse Ox 100 100 100 O2 Delivery BIPAP FiO2 80 04/19/25 04/19/25 04/19/25 04/19/25 05:00 05:15 05:18 05:30 Pulse 91 91 91 Resp 19 14 17 B/P (MAP) 108/60 (76) 94/40 (58) 108/60 93/52 (66) Pulse Ox 100 99 100 04/19/25 04/19/25 04/19/25 04/19/25 05:45 06:00 06:18 06:20 Pulse 91 91 91 92 Resp 17 18 25 16 B/P (MAP) 134/88 (103) 99/60 (73) Pulse Ox 100 100 FiO2 65 04/19/25 04/19/25 04/19/25 04/19/25 06:30 06:45 07:00 07:07 Pulse 91 91 91 91 Resp 18 15 19 17 B/P (MAP) 122/82 (95) 144/109 (121) 80/55 (63) 90/50 (63) Pulse Ox 100 100 100 100 04/19/25 04/19/25 04/19/25 04/19/25 07:15 07:30 07:45 08:00 Pulse 91 91 91 Resp 19 17 15 B/P (MAP) 80/55 (63) 96/50 (65) 93/47 (62) Pulse Ox 100 100 99 100 O2 Delivery Bi-PAP+ FiO2 80 04/19/25 04/19/25 04/19/25 04/19/25 08:00 08:00 08:15 08:30 Temp 97.3 Pulse 90 91 91 Resp 15 16 16 B/P (MAP) 102/50 (67) 101/48 (65) 103/43 (63) Pulse Ox 100 100 100 O2 Delivery BIPAP FiO2 80 04/19/25 04/19/25 04/19/25 04/19/25 08:45 09:00 09:15 09:30 Pulse 91 89 91 91 Resp 12 15 15 14 B/P (MAP) 115/47 (69) 95/51 (66) 93/51 (65) 101/48 (65) Pulse Ox 97 100 97 100 04/19/25 04/19/25 04/19/25 04/19/25 09:39 09:45 10:00 10:15 Pulse 91 85 91 Resp 14 18 15 B/P (MAP) 144/109 133/71 (91) 119/58 (78) 97/48 (64) Pulse Ox 100 100 100 04/19/25 04/19/25 04/19/25 04/19/25 10:30 10:45 11:00 11:15 Pulse 91 85 91 91 Resp 14 14 16 12 B/P (MAP) 95/47 (63) 120/50 (73) 104/69 (81) 103/47 (65) Pulse Ox 100 99 100 100 04/19/25 04/19/25 04/19/25 04/19/25 11:23 11:24 11:30 11:45 Pulse 91 93 85 91 Resp 25 16 14 17 B/P (MAP) 125/55 (78) 94/49 (64) Pulse Ox 99 99 FiO2 55 04/19/25 04/19/25 04/19/25 04/19/25 11:57 12:00 12:00 12:00 Temp 97.3 Pulse 91 Resp 13 B/P (MAP) 101/58 (72) Pulse Ox 100 100 O2 Delivery BIPAP Bi-PAP+ FiO2 40 40 80 04/19/25 04/19/25 04/19/25 12:15 12:30 12:45 Pulse 91 91 91 Resp 13 17 13 B/P (MAP) 106/68 (81) 141/56 (84) 107/71 (83) Pulse Ox 100 100 97 Intake & Output (last 24hrs) 04/18/25 04/18/25 04/19/25 15:00 23:00 07:00 Intake Total 1252.8 ml 1154.0 ml 952.9 ml Output Total 100 ml Balance 1252.8 ml 1054.0 ml 952.9 ml LABS: Laboratory: Test 04/19/25 11:53 04/19/25 11:37 04/19/25 05:05 04/18/25 11:30 Range/Units Blood Gas Specimen Type Arterial Arterial Blood pH 7.387 7.350-7.450 Arterial Blood Partial Pressure CO2 37 32-45 mmHg Arterial Blood Partial Pressure O2 113.8 H 83.0-108.0 mmHg Arterial Blood HCO3 21.5 21.0-28.0 mmol/L Arterial Blood Oxygen Saturation 98.1 H 94.0-98.0 % Arterial Blood Base Excess -2.9 L -2.0-3.0 mmol/L Blood Gas Temperature 37.0 35.5-37.0 CELSIUS Blood Gas Respiration Rate 12.0 min. Blood Gas Vent Mode BIPAP 12-6 ROOM AIR FiO2 55.0 % Blood Gas Specimen Comment [facility] Whole Blood Glucose 127 H 70-110 MG/DL White Blood Count 11.6 H 4.8-10.8 K/uL Red Blood Count 2.77 L 4.00-5.50 MIL/uL Hemoglobin 8.7 L 12.0-16.0 g/dL Hematocrit 26.0 L 36-48 % Mean Corpuscular Volume 93.9 79-99 fL Mean Corpuscular Hemoglobin 31.4 27.0-33.0 pg Mean Corpuscular Hemoglobin Concent 33.5 32.0-36.0 g/dL Red Cell Distribution Width 17.9 H 11.0-15.5 % Platelet Count 95 L 130-400 K/uL Mean Platelet Volume 11.5 H 7.5-10.5 fL Immature Granulocyte % (Auto) 0.4 0-1 % Neutrophils (%) (Auto) 96.4 H 40.0-77.0 % Lymphocytes (%) (Auto) 1.5 L 21.0-51.0 % Monocytes (%) (Auto) 1.5 L 3.0-13.0 % Eosinophils (%) (Auto) 0.0 0.0-8.0 % Basophils (%) (Auto) 0.2 0.0-5.0 % Neutrophils # (Auto) 11.2 H 1.8-7.7 K/uL Lymphocytes # (Auto) 0.2 L 1.0-4.8 K/uL Monocytes # (Auto) 0.2 0.1-1.0 K/uL Eosinophils # (Auto) 0.00 0.00-0.70 K/uL Basophils # (Auto) 0.02 0.00-0.20 K/uL Absolute Immature Granulocyte (auto 0.05 0-1 K/uL Nucleated Red Blood Cells 0.9 H 0.0-0.19 % Sodium Level 136 136-145 mmol/L Potassium Level 3.7 3.5-5.1 mmol/L Chloride Level 97 L 101-111 mmol/L Carbon Dioxide Level 22 21-32 mmol/L Blood Urea Nitrogen 132 *H 7-18 mg/dL Creatinine 3.9 H 0.5-1.0 mg/dL Glomerular Filtration Rate Calc 11 >90 mL/min Random Glucose 147 H 70-105 mg/dL Lactic Acid Level 3.6 H 0.8-2.5 mmol/L Total Calcium 7.6 L 8.5-10.1 mg/dL Phosphorus Level 9.8 H 2.5-4.9 mg/dL Magnesium Level 1.90 1.80-2.40 mg/dL Total Bilirubin 1.5 H 0.2-1.0 mg/dL Aspartate Amino Transf (AST/SGOT) 32 10-37 U/L Alanine Aminotransferase (ALT/SGPT) 67 12-78 U/L Alkaline Phosphatase 142 H 50-136 U/L Total Protein 3.9 L 6.0-8.3 g/dL Albumin 1.5 L 3.5-5.0 g/dL Hemoglobin (Blood Gas) 9.6 L 12.0-16.0 g/dL Sodium (Blood Gas) 133 L 136-145 MMOL/L Bedside Potassium (Blood Gas) 3.8 3.4-4.5 MMOL/L Bedside Chloride (Blood Gas) 97 L 98-107 MMOL/L Bedside Glucose (Blood Gas) 220 H 65-95 MG/DL Bedside Ionized Calcium (Blood Gas) 1.02 L 1.15-1.33 MMOL/L Bedside Lactic Acid (Blood Gas) 4.77 *H 0.36-0.75 MMOL/L Test 04/18/25 10:02 04/18/25 04:00 Range/Units Ammonia < 10 L 11-32 umol/L Prothrombin Time 13.6 H 9.6-11.6 SEC Prothromb Time International Ratio 1.32 H 0.85-1.15 ASSESSMENT: Hypoxic respiratory failure, requiring intubation, s/p extubated, now on continuous BiPAP support.. Healthcare associated Pneumonia. Septic shock. Anemia, POA requiring blood transfusion. Acute on chronic renal failure. Heart failure. Elevated liver enzymes, improved. Morbid obesity. Diabetes mellitus. Thrombocytopenia Leukocytosis, improving PLAN: Continue on Meropenem. Continues on Doxycycline. Continue GI prophylaxis. Continue on BiPAP support. Continue diuretics. Continue critical care support. Continues on NG tube feedings with Nepro. Avoid nephrotoxic medications. dimension mill worker has been consulted and following patient.. This case was reviewed and discussed with my supervising physician Dr. Rawls and the above assessment and plan was formulated and agreed upon. [facility] Apr 19, 2025 15:22
--- NOTE | 2025-04-19 20:30 | NUR ---
1914- REPORT FOR PATIENT RECEIVED, PER DAY SHIFT NURSE PATIENT WAS TO BE PUT ON COMFORT MEASURES AT TIME PATIENTS SON ARRIVES. PATIENT IS CURRENTLY STILL ON DOBUTAMINE DRIP AND LEVOPHED DRIP AT THIS TIME, AND ON A HIGH FLOW. PATIENTS OXYGEN SATURATIONS ARE AT 80'S DECREASING TO 70'S. I FOLLOWED UP WITH PATIENTS DAUGHTER AT BEDSIDE ABOUT PATIENT BEING PLACED ON COMFORT MEASURES EARLIER AND MEDICATIONS WERE TO BE STOPPED. PATIENTS DAUGHTER DISAGREES AND STATES SHE WAS NOT AWARE THAT PLACING PATIENT ON COMFORT MEASURES MEANT DISCONTINUING ALL MEDICATIONS TO INCLUDE DRIPS, ANTIBIOTICS AND MAINTAIN PATIENT COMFORTABLE WITH MORPHINE AND ATIVAN. PATIENTS DAUGHTER DISAGREES AND STATES WANTS EVERYTHIG TO BE CONTINUED FOR HER MOTHER. I NOTIFIED DAUGHTER OF PATIENTS OXYGEN LEVELS BEING LOW AND I NEEDED CLARITY ON WHETHER THEY WANTED TO PROCEED WITH COMFORT MEASURES AND DAUGHTER STATED NO. DAUGHTER STATES SHE DOES NOT UNDERSTAND WHY PATIENT NEEDS TO BE ON BIPAP SHE WAS TOLD IT WAS ONLY NEEDED FOR NIGHTTIME WHEN PATIENT IS ASLEEP. I EXPLAINED THAT SINCE SHE WAS DENYING COMFORT MEASURES, PATIENT NEEDED TO BE STABILIZED AND PLACED BACK ON BIPAP. DAUGHTER STATED UNDERSTANDING OF ALL TEACHINGS AND EDUCATED THOROUGHLY ON A CLEAR PLAN OF CARE. PATIENT PLACED ON BIPAP, OXYGEN LEVELS SLOWLY IMPROVING, UPDATED CHARGE NURSE YESI NEGRON AND INVESTIGATED PATIENTS CHART FOR CLARITY OF ORDERS. UNABLE TO IDENTIFY CLARITY OF PLAN OF CARE, NO ORDERS FOR COMFORT MEASURES SEEN, HOWEVER ALL MEDICATIONS HAVE BEEN DISCONTINUED AND ACKNOWLEDGED SINCE ABOUT 2 30 PM TODAY, BUT NEVER REMOVED PER FAMILIES REQUEST NOTED BY DAY SHIFT NURSING NOTE. [id number] STABILIZED OXYGEN LEVELS AT 99% ON BIPAP, BREATHING EFFORTS ARE NON LABORED AND PATIENT IS RESTING. 2029-CONTACT MADE WITH MIRELLA JASMINE NP WHO WAS EXPLAINED THE SITUATION AND WAS ALSO UNABLE TO DETERMINE THE PROCESS OF PATIENTS PLAN OF CARE. PER MIRELLA, RESUME ALL PREVIOUS ANTIBIOTICS, KEEP DRIPS ON, BIPAP SUPPORT, AND NEBULIZER TREATMENTS WHAT THEY PREVIOUSLY WERE UNTIL FURTHER NOTICE AND CLARIFICATION.
[2025-04-19] MEDS ORDERED: DEXTROSE 50%-WATER 50 ML DISP.SYRIN IV PRN (22:30)
[2025-04-19] MEDS ORDERED: GLUCAGON 1MG KIT 1 MG ML IM PRN (22:30)
[2025-04-19] MEDS ORDERED: MAGNESIUM 2GM PREMIX 50ML 50 ML IV PRN (22:30)
[2025-04-20] VITALS (115 sets, daily range): BP systolic 79–153; BP diastolic 33–115; PULSE 85–99; RESP 14–27; TEMP 96.3–97.6; O2SAT 94–100
[2025-04-20] MEDS: DOXYCYCLINE 100MG+NS 250ML 250 ML IV SCH (00:04)
[2025-04-20 04:45] LABS: IMMATURE GRANULOCYTE ABSOLUTE 0.03 K/uL (0-1); NUCLEATED RED BLOOD CELLS 0.7 % (0.0-0.19); PLATELET COUNT (AUTO) 87 K/uL (130-400); RED BLOOD CELL COUNT(AUTO) 2.68 MIL/uL (4.00-5.50); RED CELL DISTRIBUTION WIDTH 17.9 % (11.0-15.5); WHITE BLOOD COUNT (AUTO) 9.8 K/uL (4.8-10.8)
[2025-04-20 05:09] LABS: ASPARTATE AMINOTRANSFERASE 35.0 U/L (10-37); CREATININE 4.1 mg/dL (0.5-1.0); GLOMERULAR FILTR. RATE CALC 10.0 mL/min (>90); GLUCOSE,RANDOM 169.0 mg/dL (70-105); SODIUM SERUM 135.0 mmol/L (136-145); TOTAL PROTEIN, SERUM 3.8 g/dL (6.0-8.3)
[2025-04-20] MEDS: MEROPENEM 1GM 1 GM VIAL IVPB SCH (05:22)
[2025-04-20 05:25] LABS: UREA NITROGEN, BLOOD 140.0 mg/dL (7-18)
[2025-04-20] MEDS: BACITRACIN 28.4 GM OINT TP SCH (09:00)
[2025-04-20] MEDS: BUMETANIDE 1MG/4ML VIAL IVP SCH (09:12)
[2025-04-20] MEDS: Solu-medROL 40MG VIAL IVP SCH (09:12)
[2025-04-20] MEDS: THIAMINE HCL 100 MG TABLET PO SCH (09:12)
[2025-04-20] MEDS: Vitamin B Complex/Vit C/Folic Acid PO SCH (09:13)
--- NOTE | 2025-04-20 10:08 | NUR ---
Lactic acid 4.8. Results reported to Ron GONG. No further orders initiated at this time.
--- NOTE | 2025-04-20 10:50 | PN ---
[facility] PROGRESS NOTE Date Patient Seen: Apr 20, 2025 Time of Visit: 10:43 Supervising Physician: [ Dr. Ruggiero] Primary Care Physician: SAMIA MENDOZA MD Outpatient Specialists: [ ] Inpatient Consults: BIS PROBLEM LIST: Large right retroperitoneal hematoma displacing the right kidney, present on admission Acute hypoxic respiratory failure present on admission Severe sepsis with shock Severe metabolic acidosis Hospital-acquired pneumonia Acute complicated cystitis Severe anemia, requiring transfusion Acute on chronic kidney disease Atrial fibrillation on chronic anticoagulation therapy Dilated cardiomyopathy ejection fraction 35-40% with moderate pulmonary hypotension Remote CVA Hx of Right lower extremity DVT Suspected AICD malfunction Status post AICD INTERVAL HISTORY: Patient was seen and examined family at bedside. Labs an imaging reviewed. Had extensive conversation with Daughter (POA). Yesterday afternoon daughter requested comfort measures. Once initiated daughter decided to hold back. Patient was then restarted on all prior medical treatment. Patient requiring vasopressors to maintain blood pressure. Patient continues on Bipap with increase 02 requirement, 100% FiO2. Decreased urine output, 100 ml in last 24 hours. BUN and creatinine continue to climb. Continues on the Dobutrex, Bumex,and metolazone Plan: Continue on Merrem, doxy and Zyvox per ID. Continue with BiPAP. Family has requested DNR/DNI. 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 The patient is unable to tolerate Xarelto, Eliquis, nor Pradaxa, nor warfarin. We will continue to follow hematology recs. Prognosis is poor. We will monitor closely. Family will continue to discuss Comfort measures. Daughter verbalizes understanding of prognosis and comfort measures. Total critical care time spent 60 minutes, this excludes any procedures performed or any time spent in educational or teaching. REVIEW OF SYSTEMS: On bipap and obtunded. PHYSICAL EXAM: GENERAL: obtunded HEENT: , EOMI, Sclera non icteric, moist mucosa NECK: Supple, no JVD, trachea midline LUNGS: Decreased breath sounds, no wheezing. HEART: Irregular rate. Normal S1 and S2, without murmurs ABD: Abdomen soft, nontender. Bowel sounds present large right retroperitoneal hematoma EXT: 3+ edema to the upper extremities bilaterally with some weeping, 4+ edema to the lower extremities bilaterally. NEURO: A&O times1 Vital Signs (last 8hr) Date Time Temp Pulse Resp B/P (MAP) Pulse Ox O2 Delivery O2 Flow Rate FiO2 04/20/25 07:10 92 19 04/20/25 07:06 91 19 100 04/20/25 06:45 91 17 93/37 (55) 100 04/20/25 06:30 91 16 84/57 (66) 100 04/20/25 06:21 84/57 04/20/25 06:15 91 18 106/46 (66) 100 04/20/25 06:00 91 16 84/33 (50) 96 04/20/25 05:45 91 17 120/67 (84) 100 04/20/25 05:21 98/53 04/20/25 05:15 91 16 83/54 (64) 100 04/20/25 05:00 90 19 98/53 (68) 100 04/20/25 04:45 90 20 97/59 (72) 100 04/20/25 04:30 90 18 92/49 (63) 100 04/20/25 04:00 91 17 114/68 (83) 100 04/20/25 04:00 97.5 BIPAP 40 04/20/25 03:45 94 18 100/54 (69) 100 04/20/25 03:30 87 20 112/61 (78) 100 04/20/25 03:24 92 19 100 04/20/25 03:15 94 19 130/115 (120) 100 04/20/25 03:00 91 16 87/57 (67) 100 04/20/25 02:45 91 20 92/62 (72) 100 LABS: Hematology Labs: Test 04/20/25 04:28 Range/Units White Blood Count 9.8 4.8-10.8 K/uL Red Blood Count 2.68 L 4.00-5.50 MIL/uL Hemoglobin 8.5 L 12.0-16.0 g/dL Hematocrit 25.0 L 36-48 % Mean Corpuscular Volume 93.3 79-99 fL Mean Corpuscular Hemoglobin 31.7 27.0-33.0 pg Mean Corpuscular Hemoglobin Concent 34.0 32.0-36.0 g/dL Red Cell Distribution Width 17.9 H 11.0-15.5 % Platelet Count 87 L 130-400 K/uL Mean Platelet Volume 11.8 H 7.5-10.5 fL Immature Granulocyte % (Auto) 0.3 0-1 % Neutrophils (%) (Auto) 96.3 H 40.0-77.0 % Lymphocytes (%) (Auto) 1.6 L 21.0-51.0 % Monocytes (%) (Auto) 1.7 L 3.0-13.0 % Eosinophils (%) (Auto) 0.0 0.0-8.0 % Basophils (%) (Auto) 0.1 0.0-5.0 % Neutrophils # (Auto) 9.4 H 1.8-7.7 K/uL Lymphocytes # (Auto) 0.2 L 1.0-4.8 K/uL Monocytes # (Auto) 0.2 0.1-1.0 K/uL Eosinophils # (Auto) 0.00 0.00-0.70 K/uL Basophils # (Auto) 0.01 0.00-0.20 K/uL Absolute Immature Granulocyte (auto 0.03 0-1 K/uL Nucleated Red Blood Cells 0.7 H 0.0-0.19 % Chemistry Labs: Test 04/20/25 09:39 04/20/25 08:01 04/20/25 04:28 04/19/25 05:05 Range/Units Lactic Acid Level 4.8 H 0.8-2.5 mmol/L Whole Blood Glucose 149 H 70-110 MG/DL Sodium Level 135 L 136-145 mmol/L Potassium Level 3.7 3.5-5.1 mmol/L Chloride Level 96 L 101-111 mmol/L Carbon Dioxide Level 22 21-32 mmol/L Blood Urea Nitrogen 140 *H 7-18 mg/dL Creatinine 4.1 H 0.5-1.0 mg/dL Glomerular Filtration Rate Calc 10 >90 mL/min Random Glucose 169 H 70-105 mg/dL Total Calcium 7.4 L 8.5-10.1 mg/dL Total Bilirubin 1.8 H 0.2-1.0 mg/dL Aspartate Amino Transf (AST/SGOT) 35 10-37 U/L Alanine Aminotransferase (ALT/SGPT) 72 12-78 U/L Alkaline Phosphatase 153 H 50-136 U/L Total Protein 3.8 L 6.0-8.3 g/dL Albumin 1.6 L 3.5-5.0 g/dL Phosphorus Level 9.8 H 2.5-4.9 mg/dL Magnesium Level 1.90 1.80-2.40 mg/dL DIAGNOSTICS / RADIOLOGY RESULTS: [ ] PLAN NEURO: Minimize central acting medications as possible. Fall Precautions. Well lighted room through the day and minimize interruptions through the night to prevent acute delirium. PULMONARY: On mechanical ventilator support via endotracheal tube at this time CARDIOVASCULAR: Follow hemodynamics. Titrate vasopressor to keep MAP >65 or systolic blood pressure >95mmHg DIPS: [ Levophed ] GI & NUTRITION: Continue nutritional support Aspirations precautions Prokinetic agents and laxatives as needed KIDNEYS & ELECTROLYTES: Strict monitoring of intake and output Daily weights Avoid nephrotoxic agents Monitor electrolytes and replace as needed Goal urine output of 30mL/hr or 0.5mL/kg/hr ENDOCRINE: Maintain blood glucose between 100-180 at all times. Insulin sliding scale for blood glucose management INFECTIOUS DISEASE: Trend temperature. Pittman-culture if febrile. Micro: [Pending results ] Antibiotics: [ As per I and D] HEMATOLOGY & COAGULATION: Monitor H&H. Keep Hgb > 7 Transfuse 1 unit of PRBC for Hgb < 7 Transfuse 1 pack of platelets of platelets < 20, 000 Watch for any signs and symptoms of bleeding SKIN: Pressure ulcer prevention per facility protocol Rehab: PT/OT Prophylaxis: GI: [ Protonix 40 mg IV b.i.d.] DVT: [SCDs to the lower extremities ] Code Status: Full Resuscitation Disposition: [Continue medical management in the ICU ] [facility] Apr 20, 2025 10:50
[2025-04-20 12:10] LABS: ABG BASE EXCESS -6.0 mmol/L (-2.0-3.0); ABG HCO3 18.2 mmol/L (21.0-28.0); ABG OXYGEN SATURATION 98.4 % (94.0-98.0); ABG PCO2 31 mmHg (32-45); ABG PH 7.390 (7.350-7.450); CARBON MONOXIDE 0.3 % (0.5-1.5); CPAP, BG 12 cm H2O; PO2, ARTERIAL BG 150.0 mmHg (83.0-108.0); TEMPERATURE, CELSIUS BG 37.0 CELSIUS (35.5-37.0)
--- NOTE | 2025-04-20 13:28 | PN ---
INFECTIOUS DISEASE PROGRESS NOTE Date of Service: Apr 20, 2025 SUBJECTIVE: This is a 84-year-old female patient who remains in critical condition. A chest x-ray obtained yesterday showed worsening bilateral perihilar and basilar airspace disease and right pleural effusion. Still on the BiPAP. No fever and the WBC has trended down to 9.8. Patient is thrombocytopenic with platelet level of 87. Currently on Meropenem and doxycycline. Per report patient' s daughter's has not fully decided on the comfort measures and patient continues on dobutamine drip. We will continue to follow patient's care. PHYSICAL EXAM EYES: Anicteric. Pupils equal and reactive. HENT: No oral thrush seen, moist Oral mucosa NECK: Supple, no JVD or thyromegaly. LUNGS: On continuous BiPAP support CARDIOVASCULAR: S1, S2 regular. No murmur heard. ABDOMEN: Soft, non tender, bowel sounds present. CENTRAL NERVOUS SYSTEM: Continuous BiPAP support. SKIN: No rashes, no swelling. LYMPHATICS: No peripheral lymphadenopathy MUSCULOSKELETAL: No joint swelling, erythema or tenderness. EXTREMITIES: No cyanosis or clubbing. Generalized edema, improved. BACK: No deformity, no pressure ulcer. GENITOURINARY: No dysuria or hematuria, Mcdowell catheter. Vital Sign (Last 12 Hours) 04/20/25 04/20/25 04/20/25 04/20/25 01:30 01:45 02:00 02:15 Pulse 91 91 91 91 Resp 21 18 22 21 B/P (MAP) 113/63 (80) 151/93 (112) 94/65 (75) 84/58 (67) Pulse Ox 100 100 100 100 04/20/25 04/20/25 04/20/25 04/20/25 02:30 02:45 03:00 03:15 Pulse 91 91 91 94 Resp 20 20 16 19 B/P (MAP) 85/62 (70) 92/62 (72) 87/57 (67) 130/115 (120) Pulse Ox 100 100 100 100 04/20/25 04/20/25 04/20/25 04/20/25 03:24 03:30 03:45 04:00 Temp 97.5 Pulse 92 87 94 Resp 19 20 18 B/P (MAP) 112/61 (78) 100/54 (69) Pulse Ox 100 100 O2 Delivery BIPAP FiO2 100 40 04/20/25 04/20/25 04/20/25 04/20/25 04:00 04:30 04:45 05:00 Pulse 91 90 90 90 Resp 17 18 20 19 B/P (MAP) 114/68 (83) 92/49 (63) 97/59 (72) 98/53 (68) Pulse Ox 100 100 100 100 04/20/25 04/20/25 04/20/25 04/20/25 05:15 05:21 05:45 06:00 Pulse 91 91 91 Resp 16 17 16 B/P (MAP) 83/54 (64) 98/53 120/67 (84) 84/33 (50) Pulse Ox 100 100 96 04/20/25 04/20/25 04/20/25 04/20/25 06:15 06:21 06:30 06:45 Pulse 91 91 91 Resp 18 16 17 B/P (MAP) 106/46 (66) 84/57 84/57 (66) 93/37 (55) Pulse Ox 100 100 100 04/20/25 04/20/25 04/20/25 04/20/25 07:00 07:06 07:10 07:15 Pulse 91 91 92 91 Resp 17 19 19 16 B/P (MAP) 93/51 (65) 136/53 (80) Pulse Ox 100 100 FiO2 100 04/20/25 04/20/25 04/20/25 04/20/25 07:30 07:45 08:00 08:00 Temp 97.2 Pulse 91 91 Resp 17 18 B/P (MAP) 143/79 (100) 94/48 (63) Pulse Ox 100 100 100 O2 Delivery BIPAP Bi-PAP+ FiO2 100 100 04/20/25 04/20/25 04/20/25 04/20/25 08:00 08:15 08:30 08:38 Pulse 94 91 94 91 Resp 21 18 20 18 B/P (MAP) 89/52 (64) 101/51 (68) 90/53 (65) 93/47 (62) Pulse Ox 99 100 100 100 04/20/25 04/20/25 04/20/25 04/20/25 08:45 09:00 09:15 09:30 Pulse 91 90 91 91 Resp 20 18 21 16 B/P (MAP) 100/53 (69) 129/90 (103) 89/49 (62) 120/70 (87) Pulse Ox 100 100 100 100 04/20/25 04/20/25 04/20/25 04/20/25 09:32 09:45 10:00 10:15 Pulse 91 91 95 91 Resp 20 22 18 20 B/P (MAP) 105/54 (71) 110/80 (90) 115/53 (73) 133/55 (81) Pulse Ox 100 100 100 100 04/20/25 04/20/25 04/20/25 04/20/25 10:30 10:45 11:00 11:15 Pulse 90 93 90 94 Resp 18 16 16 18 B/P (MAP) 110/57 (74) 153/56 (88) 108/53 (71) 96/62 (73) Pulse Ox 100 100 100 100 04/20/25 04/20/25 04/20/25 04/20/25 11:19 11:19 12:00 12:00 Temp 97.3 Pulse 95 93 Resp 22 22 Pulse Ox 100 O2 Delivery Bi-PAP+ BIPAP FiO2 100 65 65 Intake & Output (last 24hrs) 04/19/25 04/19/25 04/20/25 15:00 23:00 07:00 Intake Total 1078.0 ml 1053.0 ml 952.9 ml Output Total 250 ml Balance 1078.0 ml 803.0 ml 952.9 ml LABS: Laboratory: Test 04/20/25 12:09 04/20/25 11:59 04/20/25 09:39 04/20/25 04:28 Range/Units Blood Gas Specimen Type Arterial Arterial Blood pH 7.390 7.350-7.450 Arterial Blood Partial Pressure CO2 31 L 32-45 mmHg Arterial Blood Partial Pressure O2 150.0 H 83.0-108.0 mmHg Arterial Blood HCO3 18.2 L 21.0-28.0 mmol/L Arterial Blood Oxygen Saturation 98.4 H 94.0-98.0 % Arterial Blood Base Excess -6.0 L -2.0-3.0 mmol/L Hemoglobin (Blood Gas) 8.9 L 12.0-16.0 g/dL Sodium (Blood Gas) 130 L 136-145 MMOL/L Bedside Potassium (Blood Gas) 3.6 3.4-4.5 MMOL/L Bedside Chloride (Blood Gas) 97 L 98-107 MMOL/L Bedside Glucose (Blood Gas) 160 H 65-95 MG/DL Bedside Ionized Calcium (Blood Gas) 0.97 L 1.15-1.33 MMOL/L Bedside Lactic Acid (Blood Gas) 4.43 *H 0.36-0.75 MMOL/L Blood Gas Temperature 37.0 35.5-37.0 CELSIUS Blood Gas Respiration Rate 12.0 min. Blood Gas Vent Mode BIPAP12,6 ROOM AIR FiO2 85.0 % Blood Gas PEEP 5 cm H2O Blood Gas CPAP 12 cm H2O Blood Gas Specimen Comment ERINN RN Whole Blood Glucose 158 H 70-110 MG/DL Lactic Acid Level 4.8 H 0.8-2.5 mmol/L White Blood Count 9.8 4.8-10.8 K/uL Red Blood Count 2.68 L 4.00-5.50 MIL/uL Hemoglobin 8.5 L 12.0-16.0 g/dL Hematocrit 25.0 L 36-48 % Mean Corpuscular Volume 93.3 79-99 fL Mean Corpuscular Hemoglobin 31.7 27.0-33.0 pg Mean Corpuscular Hemoglobin Concent 34.0 32.0-36.0 g/dL Red Cell Distribution Width 17.9 H 11.0-15.5 % Platelet Count 87 L 130-400 K/uL Mean Platelet Volume 11.8 H 7.5-10.5 fL Immature Granulocyte % (Auto) 0.3 0-1 % Neutrophils (%) (Auto) 96.3 H 40.0-77.0 % Lymphocytes (%) (Auto) 1.6 L 21.0-51.0 % Monocytes (%) (Auto) 1.7 L 3.0-13.0 % Eosinophils (%) (Auto) 0.0 0.0-8.0 % Basophils (%) (Auto) 0.1 0.0-5.0 % Neutrophils # (Auto) 9.4 H 1.8-7.7 K/uL Lymphocytes # (Auto) 0.2 L 1.0-4.8 K/uL Monocytes # (Auto) 0.2 0.1-1.0 K/uL Eosinophils # (Auto) 0.00 0.00-0.70 K/uL Basophils # (Auto) 0.01 0.00-0.20 K/uL Absolute Immature Granulocyte (auto 0.03 0-1 K/uL Nucleated Red Blood Cells 0.7 H 0.0-0.19 % Sodium Level 135 L 136-145 mmol/L Potassium Level 3.7 3.5-5.1 mmol/L Chloride Level 96 L 101-111 mmol/L Carbon Dioxide Level 22 21-32 mmol/L Blood Urea Nitrogen 140 *H 7-18 mg/dL Creatinine 4.1 H 0.5-1.0 mg/dL Glomerular Filtration Rate Calc 10 >90 mL/min Random Glucose 169 H 70-105 mg/dL Total Calcium 7.4 L 8.5-10.1 mg/dL Total Bilirubin 1.8 H 0.2-1.0 mg/dL Aspartate Amino Transf (AST/SGOT) 35 10-37 U/L Alanine Aminotransferase (ALT/SGPT) 72 12-78 U/L Alkaline Phosphatase 153 H 50-136 U/L Total Protein 3.8 L 6.0-8.3 g/dL Albumin 1.6 L 3.5-5.0 g/dL Test 04/19/25 05:05 Range/Units Phosphorus Level 9.8 H 2.5-4.9 mg/dL Magnesium Level 1.90 1.80-2.40 mg/dL ASSESSMENT: Hypoxic respiratory failure, requiring intubation, s/p extubated, now on continuous BiPAP support.. Healthcare associated Pneumonia. Septic shock. Anemia, POA requiring blood transfusion. Acute on chronic renal failure. Heart failure. Elevated liver enzymes, improved. Morbid obesity. Diabetes mellitus. Thrombocytopenia Leukocytosis, improving PLAN: Continue on Meropenem. Continues on Doxycycline. Continue GI prophylaxis. Continue on BiPAP support. Currently on dobutamine drip. Continue diuretics. Continue critical care support. Continues on NG tube feedings with Nepro. Avoid nephrotoxic medications. ground worker has been consulted and following patient.. This case was reviewed and discussed with my supervising physician Dr. Rawls and the above assessment and plan was formulated and agreed upon. ATTESTATION BY PHYSICIAN I have seen and examined the patient. I reviewed the documentation, medical decision making, and treatment plan as noted by the mid-level provider above. I agree with the findings and plan of care. CASSY RAWLS MD, [facility] Apr 20, 2025 13:28
[2025-04-20] MEDS ORDERED: furoSEMIDE 100MG VIAL 10 MG/ML VIAL IVP ONE (14:30)
--- NOTE | 2025-04-20 14:35 | PN ---
NEPHROLOGY PROGRESS NOTE Date/Time Patient Seen: Apr 20, 2025 SUBJECTIVE: This is an 84-year-old female who was sent to the Emergency Room from the [facility] and the patient has shortness of breath and chest pain. CT scan showed Large right retroperitoneal hematoma extending along the iliopsoas and into the right iliacus, displacing the right kidney. Continues to require vasopressors to maintain blood pressure She has been in the hospital for several days and was noted with worsening renal failure She was noted to have elevated BUN and creatinine, She has had acute on chronic renal dysfunction while in the hospital Continues on diuretics Yesterday afternoon POA decided to place patient on comfort measures then later withdrew decision She has been placed on prior medical treatment Continues to require vasopressors to maintain blood pressure Continues on BiPAP. The patient has been seen for all of the above Renal function continues to worsen Electrolytes are noted She was seen in the ICU Family at the bedside Condition is critical and guarded REVIEW OF SYSTEMS: GENERAL: Negative for any nausea, vomiting, fevers, chills, or weight loss. NEUROLOGIC: Negative for any blurry vision, blind spots, double vision, facial asymmetry, dysphagia, dysarthria, hemiparesis, hemisensory deficits, vertigo, ataxia. HEENT: Negative for any head trauma, neck trauma, neck stiffness, photophobia, phonophobia, sinusitis, rhinitis. CARDIAC: Negative for any chest pain, dyspnea on exertion, paroxysmal nocturnal dyspnea, peripheral edema. PULMONARY: Negative for any shortness of breath, wheezing, COPD, or TB exposure. GASTROINTESTINAL: Negative for any abdominal pain, nausea, vomiting, bright red blood per rectum, melena. GENITOURINARY: Negative for any dysuria, hematuria, incontinence. INTEGUMENTARY: Negative for any rashes, cuts, insect bites. RHEUMATOLOGIC: Negative for any joint pains, photosensitive rashes, history of vasculitis or kidney problems. HEMATOLOGIC: Negative for any abnormal bruising, frequent infections or bleeding. Vital Signs (last 8hr) Date Time Temp Pulse Resp B/P (MAP) Pulse Ox O2 Delivery O2 Flow Rate FiO2 04/20/25 12:45 94 18 123/63 (83) 100 04/20/25 12:30 92 18 113/60 (77) 100 04/20/25 12:15 92 16 84/57 (66) 100 04/20/25 12:00 97.3 BIPAP 65 04/20/25 12:00 100 Bi-PAP+ 65 04/20/25 12:00 97 16 95/57 (70) 100 04/20/25 11:45 94 16 123/72 (89) 100 04/20/25 11:30 94 18 95/60 (72) 100 04/20/25 11:19 93 22 100 04/20/25 11:19 95 22 04/20/25 11:15 94 18 96/62 (73) 100 04/20/25 11:00 90 16 108/53 (71) 100 04/20/25 10:45 93 16 153/56 (88) 100 04/20/25 10:30 90 18 110/57 (74) 100 04/20/25 10:15 91 20 133/55 (81) 100 04/20/25 10:00 95 18 115/53 (73) 100 04/20/25 09:45 91 22 110/80 (90) 100 04/20/25 09:32 91 20 105/54 (71) 100 04/20/25 09:30 91 16 120/70 (87) 100 04/20/25 09:15 91 21 89/49 (62) 100 04/20/25 09:00 90 18 129/90 (103) 100 04/20/25 08:45 91 20 100/53 (69) 100 04/20/25 08:38 91 18 93/47 (62) 100 04/20/25 08:30 94 20 90/53 (65) 100 04/20/25 08:15 91 18 101/51 (68) 100 04/20/25 08:00 94 21 89/52 (64) 99 04/20/25 08:00 100 Bi-PAP+ 100 04/20/25 08:00 97.2 BIPAP 100 04/20/25 07:45 91 18 94/48 (63) 100 04/20/25 07:30 91 17 143/79 (100) 100 04/20/25 07:15 91 16 136/53 (80) 100 04/20/25 07:10 92 19 04/20/25 07:06 91 19 100 04/20/25 07:00 91 17 93/51 (65) 100 04/20/25 06:45 91 17 93/37 (55) 100 PHYSICAL EXAM: GENERAL: Pale, acutely ill female, lethargic, no acute distress. Well-nourished. EYES: EOMI. Anicteric. HENT: Moist mucous membranes. No scleral icterus. No cervical lymphadenopathy. LUNGS: Clear to auscultation bilaterally. No accessory muscle use. CARDIOVASCULAR: Regular rate and rhythm. No murmur. No JVD. ABDOMEN: Soft, non-tender and non-distended. No palpable masses. EXTREMITIES: No edema. Non-tender. SKIN: No rashes or lesions. Warm. NEUROLOGIC: No focal neurological deficits. CN II-XII grossly intact, but not individually tested. PSYCHIATRIC: Cooperative. Appropriate mood and affect. Current Medications Medications (Trade) Dose Ordered Sig/Asif Route Start Time Stop Time Status Last Admin Dose Admin Albuterol (DUOneb) 1 UDVIAL [id number] IH 04/06/25 12:00 04/06/25 11:12 DC Artificial Tears (Artificial Tears) 2 DROPS Q4H OU 04/12/25 17:00 04/14/25 13:15 DC 04/14/25 13:14 1 DROP Azithromycin 250 ml @ 250 mls/hr ONCE IVPB 04/06/25 09:00 04/06/25 10:00 DC 04/06/25 10:45 250 MLS/HR Bacitracin (Bacitracin 28.4gm) 1 ALY AD BID TP 04/20/25 09:00 05/20/25 08:59 Bacitracin (Bacitracin 28.4gm) apply to right and left thi... BID TP 04/15/25 21:00 04/19/25 14:52 DC 04/20/25 09:35 1 GM Bumetanide (Bumex 1mg Vial) 2 mg BID IVP 04/17/25 21:00 04/19/25 14:52 DC 04/19/25 09:43 2 MG Bumetanide (Bumex 1mg Vial) 2 mg BID IVP 04/20/25 09:00 05/20/25 08:59 04/20/25 09:12 2 MG Calcium Gluconate (Calcium Gluc 1gm Vial) 1 gm ONCE IVPB 04/08/25 17:00 05/08/25 16:59 UNV Calcium Gluconate (Calcium Gluc 1gm Vial) 1 gm PROTOCOL IVPB 04/09/25 05:00 04/19/25 14:52 DC 04/09/25 05:17 1 GM Dexmedetomidine/ Sodium Chloride (PRECEdex 400MCG/ 100ML-NS) 400 mcg PROTOCOL IV 04/06/25 18:30 04/10/25 11:09 DC 04/09/25 09:22 400 MCG Dexmedetomidine/ Sodium Chloride (PRECEdex 400MCG/ 100ML-NS) 400 mcg PROTOCOL IV 04/12/25 18:30 04/14/25 13:15 DC 04/12/25 19:00 400 MCG Dextrose 1,000 ml @ 75 mls/hr [id number] IV 04/06/25 20:30 04/07/25 12:45 DC 04/06/25 20:29 75 MLS/HR Dextrose/Sodium Chloride 1,000 ml @ 75 mls/hr [id number] IV 04/09/25 10:00 04/10/25 21:01 DC 04/09/25 15:00 75 MLS/HR Dobutamine HCl/ Dextrose 250 ml @ 45.518 mls/ hr PROTOCOL IV 04/10/25 11:30 04/19/25 14:52 DC 04/19/25 05:18 45.518 MLS/HR Dobutamine HCl/ Dextrose 250 ml @ 0 mls/hr PROTOCOL IV 04/19/25 22:00 05/19/25 21:59 04/20/25 05:21 45.49 MLS/HR Doxycycline Hyclate 250 ml @ 125 mls/hr DAILY IV 04/19/25 22:30 04/29/25 22:29 04/20/25 09:11 125 MLS/HR Doxycycline Hyclate 250 ml @ 125 mls/hr Q12H IV 04/10/25 11:30 04/19/25 14:52 DC 04/19/25 11:51 125 MLS/HR Enoxaparin Sodium (Lovenox) 30 mg DAILY SQ 04/07/25 08:00 04/07/25 00:16 DC Epinephrine HCl 10 mg/Sodium Chloride 250 ml @ 0 mls/hr PROTOCOL IV 04/06/25 22:00 04/11/25 11:49 DC Epoetin Prashanth-epbx (Retacrit) 10,000 unit [id number] SQ 04/12/25 09:00 04/19/25 14:52 DC 04/19/25 09:44 10,000 UNIT Fentanyl Citrate 100 ml @ 2.5 mls/hr PROTOCOL IV 04/06/25 09:30 04/08/25 01:51 DC 04/08/25 01:39 2.5 MLS/HR Fentanyl/Sodium Chloride 250 ml @ 0.1 mls/hr PROTOCOL IV 04/08/25 02:00 04/12/25 12:22 DC 04/12/25 01:26 0.1 MLS/HR Fluconazole/ Sodium Chloride 100 ml @ 100 mls/hr DAILY IV 04/17/25 14:00 04/19/25 14:52 DC 04/19/25 09:42 100 MLS/HR Furosemide (LASix 20MG VIAL) 20 mg Q8H IV 04/08/25 15:30 04/10/25 11:09 DC 04/10/25 08:54 20 MG Furosemide 100 mg/ Sodium Chloride 100 ml @ 15 mls/hr PROTOCOL IV 04/10/25 11:30 04/17/25 15:49 DC 04/17/25 10:00 15 MLS/HR Gabapentin (NEURontin 100 mg CAP) 100 mg BID PO 04/18/25 21:00 04/19/25 14:52 DC 04/19/25 09:40 100 MG Gabapentin (NEURontin 100 mg CAP) 100 mg BID PO 04/20/25 09:00 05/20/25 08:59 04/20/25 09:14 100 MG Gabapentin (NEURontin 100 mg CAP) 100 mg TID PO 04/14/25 14:00 04/18/25 12:07 DC 04/18/25 09:13 100 MG Insulin Human Regular (humuLIN R 100 UNIT/ML 3ML) INSULIN SLIDING SCAL... Q6H6 SQ 04/10/25 12:00 04/19/25 14:52 DC 04/18/25 17:52 8 UNIT Insulin Human Regular (humuLIN R 100 UNIT/ML 3ML) INSULIN SLIDING SCAL... Q6H6 SQ 04/20/25 00:00 05/20/25 00:00 Ipratropium [place] (AtrovENT UD) 0.5 MG [id number] IH 04/20/25 00:00 05/20/25 00:00 04/20/25 11:15 0.5 MG Ipratropium [place] (AtrovENT UD) 0.5 mg [id number] IH 04/07/25 12:00 04/19/25 14:52 DC 04/19/25 11:20 0.5 MG Ipratropium [place] (AtrovENT UD) 0.5 mg [id number] IH 04/07/25 22:10 04/07/25 11:41 DC Lactated Ringer's (Lactated Ringers 1000ml) 1,000 ml BOLUS IV 04/06/25 16:30 04/08/25 07:52 DC Lidocaine (Lidoderm Patch 5%) 1 patch DAILY TP 04/15/25 09:00 04/19/25 14:52 DC 04/19/25 09:44 1 PATCH Linezolid 300 ml @ 150 mls/hr Q12H IV 04/09/25 14:00 04/09/25 16:14 DC Linezolid 300 ml @ 150 mls/hr Q12H IV 04/09/25 16:30 04/18/25 19:29 DC 04/18/25 15:33 150 MLS/HR Magnesium Sulfate 50 ml @ 0 mls/hr PROTOCOL IV 04/09/25 05:00 04/19/25 14:52 DC 04/12/25 08:56 25 MLS/HR Meropenem (Merrem 1gm) 1 gm Q12H IVPB 04/06/25 11:00 04/08/25 07:56 DC 04/07/25 23:48 1 GM Meropenem (Merrem 1gm) 1 gm Q24H IVPB 04/08/25 23:00 04/10/25 22:53 DC 04/10/25 00:08 1 GM Meropenem (Merrem 1gm) 1 gm Q24H IVPB 04/11/25 02:00 04/19/25 14:52 DC 04/19/25 03:16 1 GM Meropenem (Merrem 1gm) 1 gm Q24H IVPB 04/20/25 04:00 04/30/25 03:59 04/20/25 05:22 1 GM Methylprednisolone Sodium Succinate (Solu-medROL 40MG) 40 mg Q12H9 IVP 04/13/25 21:00 04/19/25 14:52 DC 04/19/25 09:43 40 MG Methylprednisolone Sodium Succinate (Solu-medROL 40MG) 40 mg Q12H9 IVP 04/20/25 09:00 05/20/25 08:59 04/20/25 09:12 40 MG Methylprednisolone Sodium Succinate (Solu-medROL 40MG) 40 mg Q6H IVP 04/11/25 16:00 04/13/25 16:54 DC 04/13/25 10:39 40 MG Methylprednisolone Sodium Succinate (Solu-medROL 40MG) 60 mg Q6H IVP 04/08/25 10:00 04/11/25 11:49 DC 04/11/25 08:48 60 MG Methylprednisolone Sodium Succinate (Solu-medROL 125MG) 60 mg Q6H IVP 04/06/25 22:00 04/08/25 07:50 DC 04/08/25 03:43 60 MG Metolazone (zarOXOlyn) 5 mg BID PO 04/20/25 09:00 05/20/25 08:59 04/20/25 09:13 5 MG Metolazone (zarOXOlyn) 5 mg [id number] PO 04/17/25 06:30 04/19/25 14:52 DC 04/19/25 12:04 5 MG Micafungin Sodium 100 ml @ 100 mls/hr Q24H IV 04/08/25 10:00 04/09/25 09:59 DC 04/08/25 09:19 100 MLS/HR Norepinephrine 250 ml @ 0 mls/hr PROTOCOL IV 04/06/25 10:30 04/06/25 21:28 DC 04/06/25 21:18 263.253 MLS/HR Norepinephrine Bitartrate (Norepineph 16 Mg/250ml NS Premix) Protocol PROTOCOL IV 04/17/25 19:00 04/19/25 14:52 DC 04/18/25 15:35 16 MG Norepinephrine Bitartrate (Norepineph 16 Mg/250ml NS Premix) per protocol PROTOCOL IV 04/19/25 22:00 05/19/25 21:59 Norepinephrine Bitartrate 32 mg/ Sodium Chloride 250 ml @ 0 mls/hr PROTOCOL IV 04/07/25 08:30 04/18/25 09:14 DC 04/08/25 01:59 0 MLS/HR Norepinephrine Bitartrate 32 mg/ Sodium Chloride 250 ml @ 0 mls/hr Q0M STAT IV 04/06/25 21:20 04/06/25 21:31 DC 04/06/25 21:50 0 MLS/HR Pantoprazole Sodium (PROTonix 40MG INJ) 40 mg BID IVP 04/07/25 09:00 04/19/25 14:52 DC 04/19/25 09:43 40 MG Pantoprazole Sodium (PROTonix 40MG INJ) 40 mg BID IVP 04/20/25 09:00 05/20/25 08:59 04/20/25 09:12 40 MG Pharmacy Profile Note (Pharmacy Communication) 1 each ONCE MISC 04/08/25 08:30 04/08/25 08:51 DC Pharmacy Profile Note (Pharmacy Communication) 1 each ONCE MISC 04/08/25 13:30 04/08/25 11:16 DC Pharmacy Profile Note (Pharmacy Communication) 1 each ONCE MISC 04/09/25 10:00 04/09/25 09:58 DC Pharmacy Profile Note (Pharmacy Communication) 1 each ONCE MISC 04/09/25 13:30 04/09/25 13:37 DC Pharmacy Profile Note (Pharmacy Communication) 1 each Q12H9 MISC 04/06/25 21:00 04/06/25 10:19 DC Sodium Bicarbonate 150 meq/Dextrose 1,000 ml @ 50 mls/hr Q20H IVP 04/07/25 00:30 04/08/25 11:02 DC 04/07/25 01:02 50 MLS/HR Sodium Bicarbonate 150 meq/Dextrose 1,000 ml @ 100 mls/hr Q10H IVP 04/08/25 11:30 04/09/25 09:46 DC 04/08/25 21:59 100 MLS/HR Sodium Bicarbonate 150 meq/Dextrose/Water 1,000 ml @ 100 mls/hr Q10H IVP 04/08/25 11:00 04/08/25 11:07 DC Sodium Chloride 500 ml @ 500 mls/hr Q1H IV 04/06/25 21:00 04/07/25 02:12 DC 04/06/25 21:19 500 MLS/HR Sodium Chloride 500 ml @ 500 mls/hr Q1H IV 04/08/25 08:48 04/08/25 11:04 DC 04/08/25 09:19 500 MLS/HR Sodium Chloride 500 ml @ 0 mls/hr Q0M IV 04/09/25 10:00 04/10/25 11:59 DC 04/09/25 10:04 500 MLS/HR Sodium Chloride 500 ml @ 0 mls/hr Q0M IV 04/09/25 14:00 04/10/25 11:59 DC Sodium Chloride 500 ml @ 0 mls/hr Q0M IV 04/09/25 18:00 04/10/25 11:59 DC Sodium Chloride 500 ml @ 0 mls/hr Q0M IV 04/09/25 22:00 04/10/25 11:59 DC 04/09/25 22:00 999 MLS/HR Sodium Chloride 500 ml @ 0 mls/hr Q0M IV 04/10/25 02:00 04/10/25 11:59 DC 04/10/25 02:00 999 MLS/HR Sodium Chloride 500 ml @ 0 mls/hr Q0M IV 04/10/25 06:00 04/10/25 11:59 DC 04/10/25 06:08 999 MLS/HR Sodium Chloride 1,000 ml @ 100 mls/hr Q10H IV 04/06/25 10:00 04/06/25 11:12 DC 04/06/25 10:51 100 MLS/HR Sodium Chloride 1,000 ml @ 100 mls/hr Q10H IV 04/06/25 11:30 04/07/25 12:44 DC Sodium Chloride 1,000 ml @ 500 mls/hr Q2H IV 04/08/25 08:30 04/08/25 08:51 DC Sodium Chloride (NS 50ml) 50 ml AD IV 04/09/25 05:00 04/09/25 05:12 DC Sodium Chloride 154 meq/Dextrose 1,000 ml @ 50 mls/hr Q20H IV 04/07/25 13:00 04/08/25 07:58 DC 04/07/25 13:10 50 MLS/HR Thiamine HCl (Vitamin B-1) 100 mg DAILY IM 04/11/25 09:00 04/19/25 14:52 DC 04/19/25 09:41 100 MG Thiamine HCl (Vitamin B-1) 100 mg DAILY PO 04/20/25 09:00 05/20/25 08:59 04/20/25 09:12 100 MG Vancomycin HCl (Vancomycin 750mg) 750 mg Q24H IVPB 04/07/25 09:00 04/08/25 07:56 DC 04/07/25 08:58 750 MG Vancomycin HCl (Vancomycin 750mg) 750 mg Q48H IVPB 04/09/25 09:00 04/09/25 13:28 DC 04/09/25 09:56 750 MG Vancomycin HCl (Vancomycin Protocol) 1 each AD IV 04/06/25 10:00 04/09/25 13:28 DC Vasopressin 40 units/Sodium Chloride 40 ml @ 0 mls/hr PROTOCOL IV 04/06/25 21:30 04/11/25 11:49 DC 04/07/25 04:33 1.8 MLS/HR Vitamin B Complex/ Vit C/Folic Acid (Nephrovite Tablet) 1 cap DAILY PO 04/11/25 09:00 04/19/25 14:52 DC 04/19/25 09:43 1 CAP Vitamin B Complex/ Vit C/Folic Acid (Nephrovite Tablet) 1 cap DAILY PO 04/20/25 09:00 05/20/25 08:59 04/20/25 09:13 1 CAP LABORATORY: [ ] Hematology Labs: Test 04/20/25 04:28 Range/Units White Blood Count 9.8 4.8-10.8 K/uL Red Blood Count 2.68 L 4.00-5.50 MIL/uL Hemoglobin 8.5 L 12.0-16.0 g/dL Hematocrit 25.0 L 36-48 % Mean Corpuscular Volume 93.3 79-99 fL Mean Corpuscular Hemoglobin 31.7 27.0-33.0 pg Mean Corpuscular Hemoglobin Concent 34.0 32.0-36.0 g/dL Red Cell Distribution Width 17.9 H 11.0-15.5 % Platelet Count 87 L 130-400 K/uL Mean Platelet Volume 11.8 H 7.5-10.5 fL Immature Granulocyte % (Auto) 0.3 0-1 % Neutrophils (%) (Auto) 96.3 H 40.0-77.0 % Lymphocytes (%) (Auto) 1.6 L 21.0-51.0 % Monocytes (%) (Auto) 1.7 L 3.0-13.0 % Eosinophils (%) (Auto) 0.0 0.0-8.0 % Basophils (%) (Auto) 0.1 0.0-5.0 % Neutrophils # (Auto) 9.4 H 1.8-7.7 K/uL Lymphocytes # (Auto) 0.2 L 1.0-4.8 K/uL Monocytes # (Auto) 0.2 0.1-1.0 K/uL Eosinophils # (Auto) 0.00 0.00-0.70 K/uL Basophils # (Auto) 0.01 0.00-0.20 K/uL Absolute Immature Granulocyte (auto 0.03 0-1 K/uL Nucleated Red Blood Cells 0.7 H 0.0-0.19 % Chemistry Labs: Test 04/20/25 11:59 04/20/25 09:39 04/20/25 04:28 04/19/25 05:05 Range/Units Whole Blood Glucose 158 H 70-110 MG/DL Lactic Acid Level 4.8 H 0.8-2.5 mmol/L Sodium Level 135 L 136-145 mmol/L Potassium Level 3.7 3.5-5.1 mmol/L Chloride Level 96 L 101-111 mmol/L Carbon Dioxide Level 22 21-32 mmol/L Blood Urea Nitrogen 140 *H 7-18 mg/dL Creatinine 4.1 H 0.5-1.0 mg/dL Glomerular Filtration Rate Calc 10 >90 mL/min Random Glucose 169 H 70-105 mg/dL Total Calcium 7.4 L 8.5-10.1 mg/dL Total Bilirubin 1.8 H 0.2-1.0 mg/dL Aspartate Amino Transf (AST/SGOT) 35 10-37 U/L Alanine Aminotransferase (ALT/SGPT) 72 12-78 U/L Alkaline Phosphatase 153 H 50-136 U/L Total Protein 3.8 L 6.0-8.3 g/dL Albumin 1.6 L 3.5-5.0 g/dL Phosphorus Level 9.8 H 2.5-4.9 mg/dL Magnesium Level 1.90 1.80-2.40 mg/dL DIAGNOSTICS / RADIOLOGY: [address] [address] IMAGING REPORT Signed PATIENT: LORE OCONNELL MR#: [id number] : 1940 SEX: F AGE: 84 LOCATION: [facility] ORDER 0932 STATUS: ADM IN REPORT#: [id number] SERVICE REASON: EF ORDERING PHYSICIAN: PACHECO TOBAR PROCEDURE: ECHO FU LD - ECHO 2-D F/U-LTD APPROVED REPORT EXAM: Two-dimensional and M-mode echocardiogram with Doppler and color Doppler. INDICATION ICD: Assess LV Function 2D Dimensions RVDd 4.7 cm LVED Vol(simp.) 78.4 mL LVES Vol(simp.) 43.9 mL LVEF(%, simp.) 44 % LA ESV INDEX (BP) 67.90 mL/m2 Deformation Strain Apical 4 -10.9 % Apical 2 -11.3 % Apical 3 -14.6 % Global Strain -12.3 % Mitral Valve MV E Vmax 98.0 cm/s DECEL Time 272 ms MV A Vmax 31.0 cm/s P 1/2 T 51 ms E/A ratio 3.2 MVA (PHT) 4.3 cm2 TDI E/E' Medial 18.7 E/E' Lateral 10.6 Medial E' Peak V 5.23 cm/s Lateral E' Peak V 9.27 cm/s Left Ventricle The left ventricle is normal size. There is normal left ventricular wall thickness. LVEF is 40-45%. Stage III diastolic dysfunction. Right Ventricle The right ventricle is mildly dilated. The right ventricular systolic function is normal. Device lead is present in the right ventricle. Atria The left atrium is severely dilated. The right atrium is severely dilated. Aortic Valve The aortic valve is trileaflet, mildly thickened but opens well. Trace aortic regurgitation by color doppler. There is no aortic valvular stenosis. Mitral Valve Mitral valve leaflets open well. Mitral valve leaflets are mildly thickened. Mitral regurgitation is mild. There is no mitral valve stenosis. Tricuspid Valve The tricuspid valve is normal in structure and function. There is no tricuspid valve regurgitation noted. Pulmonic Valve The pulmonary valve is normal in structure and function. Great Vessels The aortic root is normal in size. The IVC was not visualized. Pericardium Trace pericardial effusion. Other Information Quality : Limited/Follow-up Rhythm : NSR Conclusion LVEF is 40-45%. Stage III diastolic dysfunction. Severe biatrial enlargement Device lead is present in the right ventricle. DICTATED BY: KASH DUONG DO DATE: 04/18/25939 ELECTRONICALLY SIGNED BY: KASH DUONG DO DATE: 04/18/252029 PATIENT: LORE OCONNELL MR#: [id number] : 1940 SEX: F AGE: 84 LOCATION: [facility] ORDER 99 STATUS: ADM IN REPORT#: [id number] SERVICE 06 REASON: Resp failure ORDERING PHYSICIAN: PACHECO TOBAR PROCEDURE: CXR1VW - CHEST 1VW EXAM: CR Chest, 1 View. CLINICAL HISTORY: Resp failure COMPARISON: 04/17/2025 FINDINGS: Right PICC catheter with the tip in the superior vena cava. A nasogastric tube is seen with the tip likely in the gastroesophageal junction; recommend further advancement of the tube for optimal positioning. LUNGS: Interval improvement in bilateral perihilar and basilar airspace disease. PLEURAL SPACES: No pneumothorax. Interval improvement in bilateral pleural effusion, with residual small left pleural effusion with adjacent lung atelectasis. MEDIASTINUM: Mild stable cardiomegaly. Interval reduction in pulmonary vascular congestion. Atherosclerotic aortic arch. Left pacemaker with intact leads in place. BONES: No aggressive appearing osseous lesion seen. IMPRESSION: 1. Interval improvement in bilateral perihilar and basilar airspace disease. 2. Interval improvement in bilateral pleural effusion with residual small left pleural effusion, with adjacent lung atelectasis. 3. Right PICC catheter with tip in the superior vena cava. 4. Nasogastric tube tip likely at the gastroesophageal junction; recommend further advancement for optimal positioning. /[place] DICTATED BY: SHAKIR GARCIA Jr., MD DATE: 04/18/251058 ELECTRONICALLY SIGNED BY: SHAKIR GARCIA Jr., MD DATE: 12/04/25 1059 PATIENT: LORE OCONNELL MR#: [id number] : 1940 SEX: F AGE: 84 LOCATION: [facility] ORDER 2300 STATUS: ADM IN REPORT#: [id number] SERVICE 0600 REASON: SOB ORDERING PHYSICIAN: BOYD GUERRA PAC PROCEDURE: CXR1VW - CHEST 1VW EXAM: CR Chest, 1 View. CLINICAL HISTORY: SOB COMPARISON: 04/16/2025 FINDINGS: Right-sided PICC catheter with tip in the superior vena cava. LUNGS: Mild interval increase in right pleural effusion with adjacent lung atelectasis. Stable small left pleural effusion. Persistent patchy areas of ground-glass opacities in the right parahilar region are due to probable pulmonary edema. PLEURAL SPACES: No pneumothorax. MEDIASTINUM: Mild stable cardiomegaly with bilateral pulmonary congestion. A left pacemaker device with intact leads in situ. Atherosclerotic aortic knob. BONES: No acute osseous abnormality. IMPRESSION: 1. Mild interval increase in right pleural effusion with adjacent lung atelectasis. Stable small left pleural effusion. 2. Mild stable cardiomegaly with bilateral pulmonary congestion. Persistent patchy areas of groundglass opacities in the right parahilar region, likely due to pulmonary edema. 3. Right-sided PICC catheter with tip in the superior vena cava. Compared to the prior study, there is an interval progression of right pleural effusion with adjacent lung atelectasis. /[place] DICTATED BY: SHAKIR GARCIA Jr., MD DATE: 04/18/25 111 ELECTRONICALLY SIGNED BY: SHAKIR GARCIA Jr., MD DATE: 04/18/25 111 PATIENT: LORE OCONNELL MR#: [id number] : 1940 SEX: F AGE: 84 LOCATION: [facility] ORDER 0733 STATUS: ADM IN REPORT#: [id number] SERVICE 0732 REASON: SOB ORDERING PHYSICIAN: BOYD GUERRA PAC PROCEDURE: CXR1VW - CHEST 1VW EXAM: CR Chest, single view. CLINICAL HISTORY: Shortness of breath. COMPARISON: Prior chest radiograph dated April 15, 2025 FINDINGS: Right-sided central venous catheter with tip in the superior vena cava. Mild cardiomegaly with bilateral pulmonary congestion. Mild bilateral pleural effusion is left more than right with adjacent lung atelectasis. Patchy areas of groundglass opacities in the right parahilar region are probable pulmonary edema. A battery pack is in the left anterior chest wall with pacemaker wires in the right atrium and ventricles. No acute osseous abnormality. Degenerative changes in the mid and lower thoracic spine. IMPRESSION: Right-sided central venous catheter with tip in the superior vena cava. Mild cardiomegaly with bilateral pulmonary congestion. Mild bilateral pleural effusion is left more than right with adjacent lung atelectasis. Patchy areas of groundglass opacities in the right parahilar region are probable pulmonary edema. A battery pack is in the left anterior chest wall with pacemaker wires in the right atrium and ventricles. Compared to the prior study, there is an interval progression of bilateral pleural effusion development of groundglass opacities in the right parahilar region. /[place] DICTATED BY: SHAKIR GARCIA Jr., MD DATE: 04/16/25904 ELECTRONICALLY SIGNED BY: SHAKIR GARCIA Jr., MD DATE: 04/16/25904 PATIENT: LORE OCONNELL MR#: [id number] : 1940 SEX: F AGE: 84 LOCATION: [facility] ORDER 8 STATUS: ADM IN REPORT#: [id number] SERVICE REASON: bipap support ORDERING PHYSICIAN: BOYD GUERRA PAC PROCEDURE: CXR1VW - CHEST 1VW EXAM: CR CHEST, 1 VIEW CLINICAL HISTORY: bipap support COMPARISON: CR: CHEST 1VW dated 04/13/2025 06:08 AM EST: TECHNIQUE: Single frontal radiograph of the chest was obtained. FINDINGS: Lines/Devices: A pacemaker is seen with intact leads. The previously noted endotracheal tube is not seen, mostly removed. Lungs: stationary course as regards the previously noted central pulmonary congestion seen in both lungs. Blunted left costophrenic angle still noted, suggestive of minimal pleural effusion. There is no pneumothorax. Mediastinum and cardiovascular structures: Still noted mild cardiomegaly. Prominent aortic calcifications with atheromatous calcifications. The central airway and mediastinal contours are unremarkable. Bones and soft tissues: Unremarkable. IMPRESSION: 1. Mild reduction in the previously noted central pulmonary venous congestion. 2. Blunted left costophrenic angle, suggestive of minimal pleural effusion. 3. Mild cardiomegaly. 4. Prominent aortic calcifications with atheromatous calcifications. 5.As compared to the previous CR: CHEST 1VW dated 04/13/2025 06:08 AM EST, stationary course as regards the previously noted central pulmonary congestion as well as mild cardiomegaly, the previously noted endotracheal tube is not seen in today's study, likely surgically removed .No new findings /[place] DICTATED BY: HENRIK FOX MD DATE: 04/15/252249 ELECTRONICALLY SIGNED BY: HENRIK FOX MD DATE: 04/15/252249 PATIENT: LORE OCONNELL MR#: [id number] : 1940 SEX: F AGE: 84 LOCATION: [facility] ORDER 99 STATUS: ADM IN REPORT#: [id number] SERVICE 0600 REASON: chf ORDERING PHYSICIAN: SHADE YOUNGBLOOD MD PROCEDURE: CXR1VW - CHEST 1VW EXAM: CR Chest, 1 View. CLINICAL HISTORY: CHF COMPARISON: 04/12/2025 FINDINGS: The ET tube tip is 4.4 cm away from the juanito. The nasogastric tube is seen below the left hemidiaphragm. LUNGS: Left basilar atelectasis. Otherwise, the lungs are essentially clear. PLEURAL SPACES: No pneumothorax. Stable small left pleural effusion. MEDIASTINUM: Mild cardiomegaly with interval reduction in the central pulmonary venous congestion in both lungs. The pacemaker leads overlie the right atrium and right ventricle. BONES: No acute osseous abnormality. IMPRESSION: 1. Mild cardiomegaly with interval reduction in central pulmonary venous congestion. 2. Stable small left pleural effusion. 3. ET tube tip 4.4 cm from juanito. 4. Nasogastric tube below the left hemidiaphragm. /[place] DICTATED BY: SHAKIR GARCIA Jr., MD DATE: 04/13/251035 ELECTRONICALLY SIGNED BY: SHAKIR GARCIA Jr., MD DATE: 04/13/251035 PATIENT: LORE OCONNELL MR#: [id number] : 1940 SEX: F AGE: 84 LOCATION: 2BH ORDER 2300 STATUS: ADM IN REPORT#: [id number] SERVICE 0600 REASON: PNA ORDERING PHYSICIAN: ZENOBIA PEREZ MD PROCEDURE: CXR1VW - CHEST 1VW CHEST 1VW REASON: PNA COMPARISON: Prior chest radiograph from 04/09/2025 is available. FINDINGS: Single view of the chest was obtained. The study is limited due to poor inspiratory radiograph patient is rotated.. The lung [place] are clear. There is no evidence of any vascular congestion. There is mild cardiomegaly with left ventricular contour. There is a support lines including endotracheal tube and nasogastric tube are in satisfactory position. There is a left-sided pacemaker with lead in right atrium and right ventricle.. Mediastinum and bony thorax appear unremarkable. The bony thorax demonstrate mild osteopenia. IMPRESSION: 1. Mild cardiomegaly 2. Support lines satisfactory position 3. Limited study with no evidence of airspace consolidation or pulmonary venous congestion. DICTATED BY: JADEN CHAVIRA MD DATE: 04/10/251251 ELECTRONICALLY SIGNED BY: JADEN CHAVIRA MD DATE: 04/10/251255 PATIENT: LORE OCONNELL MR#: [id number] : 1940 SEX: F AGE: 84 LOCATION: 2BH ORDER 0837 STATUS: ADM IN REPORT#: [id number] SERVICE REASON: septic/SOB ORDERING PHYSICIAN: ZENOBIA PEREZ MD PROCEDURE: CAP WO - CT CHEST/ABD/PELV W/O CONTRAST ADDENDUM REPORT ADDENDUM: Results were shared by telephone at 09:07 PM on 04-08-2025 and acknowledged by the Patient's Nurse Ms. Sue Quinones /[place] EXAM: CT Chest, Abdomen and Pelvis without Intravenous Contrast CLINICAL HISTORY: evaluation of sepsis. TECHNIQUE: Axial computed tomography images of the chest, abdomen and pelvis without intravenous contrast. Dose reduction technique was used including one or more of the following: automated exposure control, adjustment of mA and kV according to patient size, and/or iterative reconstruction. Total exam DLP is 1117 mGy x cm. CONTRAST: None. COMPARISON: Prior chest radiograph dated 04/08/2025, acquired at 04:52 hours. FINDINGS: CHEST: LUNGS: Endotracheal tube with its tip positioned 3.5 cm short of juanito. Moderate sized bilateral pleural effusions with atelectasis/consolidation of the lung bases. Multifocal areas of ground-glass opacities, mosaic attenuation are present in the remainder of the lung parenchyma bilaterally. PLEURAL SPACES: Moderate sized bilateral pleural effusions. No pneumothorax. HEART AND MEDIASTINUM: Left chest wall pacemaker with electrodes terminating in the lumen of the coronary sinus and the right heart chambers. Atheromatous calcification of the aortic arch and the coronary arteries. Right sided PICC line visualized with its tip terminating in the right brachiocephalic vein. Feeding tube visualized with its tip terminating at the gastroesophageal junction. Mild cardiomegaly. Coronary arterial calcifications present. Mitral and aortic valve annulus calcifications. No significant pericardial effusion. LYMPH NODES: No lymphadenopathy. ABDOMEN AND PELVIS: LIVER: Ill-defined hypodense area measuring 2 x 2.1 cm in the segment VII of the subcapsular region of the right hepatic lobe, without areas of calcification or fat in it. GALLBLADDER AND BILE DUCTS: Gallbladder is surgically absent. No biliary ductal dilatation. PANCREAS: Pancreas is atrophic. No pancreatic ductal dilatation or calculi. SPLEEN: Spleen is atrophic and shrunken with areas of capsular calcifications. ADRENAL GLANDS: Unremarkable. KIDNEYS, URETERS, AND BLADDER: Bilateral intrarenal segmental arterial calcifications. Multiple right sided renal calculi, measuring up to 4 mm. A Mcdowell's catheter is appropriately positioned in the bladder lumen. No hydronephrosis. No ureteral or bladder calculi. STOMACH AND BOWEL: Evidence of prior surgical intervention involving the stomach, incompletely evaluated due to lack of optimal luminal distension. Gastric bypass surgery status with appropriate position of the gastrojejunal anastomosis. No obstruction. No wall thickening. No CT evidence of colitis or acute diverticulitis. APPENDIX: No CT evidence for appendicitis. PERITONEUM: No free fluid. No free air. LYMPH NODES: No lymphadenopathy. REPRODUCTIVE: Uterus is not distinctly visualized. VASCULATURE: The abdominal aorta demonstrates atheromatous calcification without aneurysm or dissection. BONES AND SOFT TISSUES: Diffuse body wall edema. Right retroperitoneal space hyperdense collection, measuring approximately 14 x 7 x 25 cm, visualized on the anterior aspect of the iliopsoas. It is extending toward the right groin. The right iliacus muscle also appears bulky with similar hyperdense contents, likely representing hematoma. The collection is visualized in the retroperitoneal compartment and is displacing the right kidney anteriorly. Severe osteopenia. Chronic appearing compression deformities of multiple thoracolumbar vertebrae, including T6, T8, T9, T11, T1. The maximum vertebral height loss is visualized at T11 level with increased thoracolumbar junction kyphosis. Grade I anterolisthesis of L4 over L5 without spondylolysis. Dextroscoliosis of the thoracolumbar spine curvature. IMPRESSION: 1. Findings consistent with aspiration pneumonitis. Compared with the prior chest radiograph dated 04/08/2025, acquired at 04:52 hours, the pulmonary parenchymal findings are stable. Right PICC line and the feeding tube need to be repositioned. 2. Large right retroperitoneal hematoma extending along the iliopsoas and into the right iliacus, displacing the right kidney. 3. Several stable chronic and incidental findings are noted, as detailed in the body of the report. /[place] DICTATED BY: HENRIK FOX MD DATE: 04/08/252128 ELECTRONICALLY SIGNED BY: DATE: EXAM: CT Chest, Abdomen and Pelvis without Intravenous Contrast CLINICAL HISTORY: evaluation of sepsis. TECHNIQUE: Axial computed tomography images of the chest, abdomen and pelvis without intravenous contrast. Dose reduction technique was used including one or more of the following: automated exposure control, adjustment of mA and kV according to patient size, and/or iterative reconstruction. Total exam DLP is 1117 mGy x cm. CONTRAST: None. COMPARISON: Prior chest radiograph dated 04/08/2025, acquired at 04:52 hours. FINDINGS: CHEST: LUNGS: Endotracheal tube with its tip positioned 3.5 cm short of juanito. Moderate sized bilateral pleural effusions with atelectasis/consolidation of the lung bases. Multifocal areas of ground-glass opacities, mosaic attenuation are present in the remainder of the lung parenchyma bilaterally. PLEURAL SPACES: Moderate sized bilateral pleural effusions. No pneumothorax. HEART AND MEDIASTINUM: Left chest wall pacemaker with electrodes terminating in the lumen of the coronary sinus and the right heart chambers. Atheromatous calcification of the aortic arch and the coronary arteries. Right sided PICC line visualized with its tip terminating in the right brachiocephalic vein. Feeding tube visualized with its tip terminating at the gastroesophageal junction. Mild cardiomegaly. Coronary arterial calcifications present. Mitral and aortic valve annulus calcifications. No significant pericardial effusion. LYMPH NODES: No lymphadenopathy. ABDOMEN AND PELVIS: LIVER: Ill-defined hypodense area measuring 2 x 2.1 cm in the segment VII of the subcapsular region of the right hepatic lobe, without areas of calcification or fat in it. GALLBLADDER AND BILE DUCTS: Gallbladder is surgically absent. No biliary ductal dilatation. PANCREAS: Pancreas is atrophic. No pancreatic ductal dilatation or calculi. SPLEEN: Spleen is atrophic and shrunken with areas of capsular calcifications. ADRENAL GLANDS: Unremarkable. KIDNEYS, URETERS, AND BLADDER: Bilateral intrarenal segmental arterial calcifications. Multiple right sided renal calculi, measuring up to 4 mm. A Mcdowell's catheter is appropriately positioned in the bladder lumen. No hydronephrosis. No ureteral or bladder calculi. STOMACH AND BOWEL: Evidence of prior surgical intervention involving the stomach, incompletely evaluated due to lack of optimal luminal distension. Gastric bypass surgery status with appropriate position of the gastrojejunal anastomosis. No obstruction. No wall thickening. No CT evidence of colitis or acute diverticulitis. APPENDIX: No CT evidence for appendicitis. PERITONEUM: No free fluid. No free air. LYMPH NODES: No lymphadenopathy. REPRODUCTIVE: Uterus is not distinctly visualized. VASCULATURE: The abdominal aorta demonstrates atheromatous calcification without aneurysm or dissection. BONES AND SOFT TISSUES: Diffuse body wall edema. Right retroperitoneal space hyperdense collection, measuring approximately 14 x 7 x 25 cm, visualized on the anterior aspect of the iliopsoas. It is extending toward the right groin. The right iliacus muscle also appears bulky with similar hyperdense contents, likely representing hematoma. The collection is visualized in the retroperitoneal compartment and is displacing the right kidney anteriorly. Severe osteopenia. Chronic appearing compression deformities of multiple thoracolumbar vertebrae, including T6, T8, T9, T11, T1. The maximum vertebral height loss is visualized at T11 level with increased thoracolumbar junction kyphosis. Grade I anterolisthesis of L4 over L5 without spondylolysis. Dextroscoliosis of the thoracolumbar spine curvature. IMPRESSION: 1. Findings consistent with aspiration pneumonitis. Compared with the prior chest radiograph dated 04/08/2025, acquired at 04:52 hours, the pulmonary parenchymal findings are stable. Right PICC line and the feeding tube need to be repositioned. 2. Large right retroperitoneal hematoma extending along the iliopsoas and into the right iliacus, displacing the right kidney. 3. Several stable chronic and incidental findings are noted, as detailed in the body of the report. /[place] DICTATED BY: HENRIK FOX MD DATE: 04/08/252056 ELECTRONICALLY SIGNED BY: HENRIK FOX MD DATE: 04/08/252056 PATIENT: LORE OCONNELL MR#: [id number] : 1940 SEX: F AGE: 84 LOCATION: 2BH ORDER 1 STATUS: ADM IN REPORT#: [id number] SERVICE 0 REASON: HF ORDERING PHYSICIAN: BOYD GUERRA PAC PROCEDURE: ECHO CMP - ECHO 2-D COMPLETE APPROVED REPORT EXAM: Two-dimensional and M-mode echocardiogram with Doppler and color Doppler. INDICATION ICD: Elevated liver enzymes 2D Dimensions RVDd 5.0 cm LVEF(%) 54.9 (>50%) LA ESV INDEX (BP) 85.96 mL/m2 IVSd 0.8 (0.7-1.1cm) FS(%) 29 % LVDd 5.1 (3.8-5.6cm) LA (2D) 6.2 (1.6-4.0cm) PWd 1.2 (0.7-1.1cm) Ao Root(2D) 3.0 (2.0-3.7cm) IVSs 1.0 cm LVOT diam 2.2 (1.8-2.4cm) LVDs 3.6 (2.5-4.0cm) PWs 1.5 cm M-Mode Dimensions EPSS 0.9 cm LA (MM) 7.0 (1.6-4.0cm) Ao Root(MM) 3.4 (2.0-3.7cm) Aortic Valve AoV Vmax 1.7 m/s Ao Peak GR 11.9 mmHg LVOT Vmax 0.8 m/s AoV VTI 0.3 m Ao Mean GR 6.7 mmHg LVOT VTI 0.12 m VERONICA (VMAX) 1.64 cm2 Al P1/2T 575 ms VERONICA (VTI) 1.5 cm2 Mitral Valve MV E Vmax 81.2 cm/s DECEL Time 181 ms MV A Vmax 73.1 cm/s P 1/2 T 42 ms E/A ratio 1.1 MVA (PHT) 5.2 cm2 TDI E/E' Medial 14.3 E/E' Lateral 13.4 Medial E' Peak V 5.67 cm/s Lateral E' Peak V 6.04 cm/s Pulmonary Valve PV Vmax 1.2 m/s PI End Ximena. Jonel 142.2 cm/s PV Mean GR 2.7 mmHg PV Peak GR 5.6 mmHg Tricuspid Valve TR Vmax 2.6 m/s RAP (EST) 3 mmHg RVSP 30.0 mmHg TR Peak GR 27.0 mmHg Left Ventricle The left ventricle is normal size. There is global hypokinesis of the left ventricle. There is normal left ventricular wall thickness. LVEF is 30-35%. E/A flow is fused. Right Ventricle The right ventricle is severely dilated. Right ventricular systolic function is mildly reduced. Device lead is present in the right ventricle. Atria The left atrium is severely dilated. LASVI 86mL/m The interatrial septum is intact with no evidence for an atrial septal defect by color. Evidence of increased left atrial pressure with the atrial septum bowed to the right. The right atrium is severely dilated. Aortic Valve Aortic valve is trileaflet, mildly sclerotic and thickened but opens well. Mild aortic regurgitation is present. There is no aortic valvular stenosis. Mitral Valve The mitral valve is thickened. There is mild mitral valve regurgitation noted. There is no mitral valve stenosis. Tricuspid Valve The tricuspid valve is normal in structure. There is no tricuspid valve regurgitation noted. RVSP 30 mmHg Pulmonic Valve The pulmonary valve is normal in structure. There is trace of pulmonic valvular regurgitation. Great Vessels The aortic root is normal in size. The IVC is normal in size and collapses >50% with inspiration. Pericardium There is small pericardial effusion seen posteriorly. Other Information Quality : Adequate Rhythm : NSR Conclusion There is global hypokinesis of the left ventricle. LVEF is 30-35%. The right ventricle is severely dilated and hypokinetic. Device lead is present in the right ventricle. Left atrium is severely dilated. LASVI 86mL/m. No atrial septal defect by color. Evidence of increased left atrial pressure with the atrial septum bowed to the right. Mild aortic regurgitation. Thckened mitral valve leaflets. Mild mitral valve regurgitation. Small pericardial effusion seen posteriorly. DICTATED BY: KASH DUONG DO DATE: 04/07/25 5772 ELECTRONICALLY SIGNED BY: KASH DUONG DO DATE: 04/07/25 5801 ASSESSMENT: Acute on chronic kidney disease Anemia Retroperitoneal hemorrhage newly diagnosed via CT scan of the abdomen Acute hypoxic respiratory failure present on admission currently on mechanical ventilatory support via endotracheal tube Severe sepsis with shock Severe metabolic acidosis Hospital-acquired pneumonia Acute complicated cystitis Atrial fibrillation on chronic anticoagulation therapy Dilated cardiomyopathy ejection fraction 35-40% with moderate pulmonary hypotension Remote CVA Hx of Right lower extremity DVT History of right TKA Suspected AICD malfunction Status post AICD PLAN: Labs, diagnostic, radiologic exams reviewed and interpreted by myself and supervising physician. We have reviewed external records in detail Continue with diuretics Require close monitoring of renal function and electrolytes Order CBC, CMP, and electrolytes in am BiPAP, for respiratory distress Continue with IV pressors Continue with antibiotics Monitor blood pressure adjust medication doses as needed Avoid hypotensive episodes May use Dilaudid 0.5 mg IV every 6 hours as needed for severe pain Monitor blood sugars Strict intake, output, and daily weight should be monitored Please renally adjust medications Avoid nephrotoxic and nonsteroidal drugs Avoid contrast if possible Will continue to monitor renal function, anemia, electrolytes Treatment plan discussed with patient Questions were answered We have discussed with the other team physicians in detail about the care plan We will continue to monitor the patient closely Total critical care time spent with patient, nursing staff, critical care team over 35 minutes ATTESTATION BY PHYSICIAN I have seen and examined the patient. I reviewed the documentation, medical decision making, and treatment plan as noted by the mid-level provider above. I agree with the findings and plan of care. BREANA YUSUF MD, [facility] Apr 20, 2025 14:35
--- NOTE | 2025-04-20 21:25 | PN ---
SUBJECTIVE: Presently, the patient's family made the patient's DNR/DNI not comfort care. The patient's orders were resumed completely and the patient's daughter informed that we are resuming all orders and the patient's daughter is also requesting some medication for the pain and discomfort, which we are going to start on Dilaudid 0.25 mg very low dose as it can make hypotensive and sometimes respiratory depression. The patient is on BiPAP at this time. The patient is on vasopressors for the hypertension. OBJECTIVE: VITAL SIGNS: Blood pressure is between 84/57 to 120/63, pulse is 90, respirations are 22. LUNGS: The patient has decreased breath sounds. Rhonchi noted in the lung lebron. HEART: Irregularly irregular. ABDOMEN: Soft and nontender. EXTREMITIES: No edema noted. ASSESSMENT AND PLAN: * Respiratory failure. The patient is back on BiPAP at this time. * History of congestive heart failure and the patient is on dobutamine at this time. * Anemia with hemoglobin of 8.5, stable and [id number] renal insufficiency with creatinine of 4.1 will be monitored closely. The patient has a lactic acidosis of 4.8 also. * The patient's overall condition is regarded. Prognosis is guarded at this time. TID: [id number] RECEIPT: [id number]
[2025-04-21] VITALS (48 sets, daily range): BP systolic 64–137; BP diastolic 23–92; PULSE 39–97; RESP 14–31; TEMP 96.1–97; O2SAT 91–100
[2025-04-21] MEDS: NOREPINEPHRINE 16MG/NS 250ML PREMIX IV SCH (03:05)
--- NOTE | 2025-04-21 03:39 | HMCIMG ---
EXAM: CR CHEST, 1 VIEW CLINICAL HISTORY: Heart failure. COMPARISON: Prior chest radiograph dated 04/19/2025. TECHNIQUE: Single frontal radiograph of the chest was obtained. FINDINGS: Lines/Devices: Again seen is a left chest wall pacemaker with its electrodes overlying the right heart Chambers. Again seen is a nasogastric catheter overlying the central chest with its tip at the level of the thoracoabdominal junction, likely in the region of the gastro-oesophageal junction. Again seen is a right sided PICC line with its tip in the superior vena cava. Lungs: The pulmonary parenchyma and the chyna are congested, stable since the prior examination. Again seen are bilateral pleural effusions, right greater than left. There is no pneumothorax. Mediastinum and cardiovascular structures: Again seen is large cardiomegaly with splaying of the juanito. The central airway and mediastinal contours are unremarkable except for splaying of the juanito. Bones and soft tissues: There are degenerative changes in the spine, stable. There is no chest wall emphysema. The remaining visualized bones and soft tissues are unremarkable. IMPRESSION: 1. Stable cardiomegaly with congestive cardiac failure causing interstitial pulmonary edema, bilateral pleural effusions. No interval changes since the prior chest x-ray dated April 19, 2025. 2. Stable lines and tubes. /[place]
[2025-04-21 06:06] LABS: IMMATURE GRANULOCYTE ABSOLUTE 0.04 K/uL (0-1); NUCLEATED RED BLOOD CELLS 0.5 % (0.0-0.19); PLATELET COUNT (AUTO) 72 K/uL (130-400); RED BLOOD CELL COUNT(AUTO) 2.63 MIL/uL (4.00-5.50); RED CELL DISTRIBUTION WIDTH 17.7 % (11.0-15.5); WHITE BLOOD COUNT (AUTO) 11.0 K/uL (4.8-10.8)
[2025-04-21 06:19] LABS: ASPARTATE AMINOTRANSFERASE 39.0 U/L (10-37); CREATININE 4.2 mg/dL (0.5-1.0); GLOMERULAR FILTR. RATE CALC 10.0 mL/min (>90); GLUCOSE,RANDOM 168.0 mg/dL (70-105); SODIUM SERUM 134.0 mmol/L (136-145); TOTAL PROTEIN, SERUM 3.9 g/dL (6.0-8.3)
[2025-04-21 06:34] LABS: UREA NITROGEN, BLOOD 138.0 mg/dL (7-18)
--- NOTE | 2025-04-21 10:04 | PN ---
[facility] PROGRESS NOTE Date Patient Seen: Apr 21, 2025 Time of Visit: 09:59 Supervising Physician: [ De. Ruggiero] Primary Care Physician: SAMIA MENDOZA MD Outpatient Specialists: [ ] Inpatient Consults: [place] PROBLEM LIST: Large right retroperitoneal hematoma displacing the right kidney, present on admission Acute hypoxic respiratory failure present on admission Severe sepsis with shock Severe metabolic acidosis Hospital-acquired pneumonia Acute complicated cystitis Severe anemia, requiring transfusion Acute on chronic kidney disease Atrial fibrillation on chronic anticoagulation therapy Dilated cardiomyopathy ejection fraction 35-40% with moderate pulmonary hypotension Remote CVA Hx of Right lower extremity DVT Suspected AICD malfunction Status post AICD INTERVAL HISTORY: Patient was seen and examined family at bedside. Had extensive conversation with Daughter and son who have opted for comfort measures Plan: Start comfort measures per family request (Daughter POA, son and ) Ativan and morphine Plan to transfer to medical unit Total critical care time spent 40 minutes, this excludes any procedures performed or any time spent in educational or teaching. REVIEW OF SYSTEMS: On bipap and obtunded. PHYSICAL EXAM: GENERAL: obtunded HEENT: , EOMI, Sclera non icteric, moist mucosa NECK: Supple, no JVD, trachea midline LUNGS: Decreased breath sounds, no wheezing. HEART: Irregular rate. Normal S1 and S2, without murmurs ABD: Abdomen soft, nontender. Bowel sounds present large right retroperitoneal hematoma EXT: 3+ edema to the upper extremities bilaterally with some weeping, 4+ edema to the lower extremities bilaterally. NEURO: A&O times1 Vital Signs (last 8hr) Date Time Temp Pulse Resp B/P (MAP) Pulse Ox O2 Delivery O2 Flow Rate FiO2 04/21/25 08:34 97/52 04/21/25 06:42 92 28 04/21/25 06:40 92 29 65 04/21/25 06:00 91 30 93/64 (74) 100 04/21/25 05:37 91 28 98/65 (76) 100 04/21/25 05:22 91 29 96/57 (70) 100 04/21/25 05:00 91 28 94/58 (70) 100 04/21/25 04:52 91 25 113/61 (78) 100 04/21/25 04:22 91 31 97/81 (86) 100 04/21/25 04:00 96.1 91 25 98/58 (71) 100 04/21/25 04:00 100 Bi-PAP+ 65 04/21/25 03:48 91 28 65 04/21/25 03:37 91 31 84/61 (69) 100 04/21/25 03:22 91 27 100/64 (76) 100 04/21/25 03:08 91 28 91/55 (67) 100 04/21/25 03:00 91 27 107/47 (67) 100 04/21/25 02:37 91 26 91/55 (67) 100 04/21/25 02:28 95/55 04/21/25 02:22 91 28 101/57 (72) 100 04/21/25 02:07 91 29 88/56 (67) 100 04/21/25 02:00 91 25 95/55 (68) 100 LABS: Hematology Labs: Test 04/21/25 05:40 Range/Units White Blood Count 11.0 H 4.8-10.8 K/uL Red Blood Count 2.63 L 4.00-5.50 MIL/uL Hemoglobin 8.5 L 12.0-16.0 g/dL Hematocrit 24.7 L 36-48 % Mean Corpuscular Volume 93.9 79-99 fL Mean Corpuscular Hemoglobin 32.3 27.0-33.0 pg Mean Corpuscular Hemoglobin Concent 34.4 32.0-36.0 g/dL Red Cell Distribution Width 17.7 H 11.0-15.5 % Platelet Count 72 L 130-400 K/uL Mean Platelet Volume 12.1 H 7.5-10.5 fL Immature Granulocyte % (Auto) 0.4 0-1 % Neutrophils (%) (Auto) 96.8 H 40.0-77.0 % Lymphocytes (%) (Auto) 1.3 L 21.0-51.0 % Monocytes (%) (Auto) 1.1 L 3.0-13.0 % Eosinophils (%) (Auto) 0.0 0.0-8.0 % Basophils (%) (Auto) 0.4 0.0-5.0 % Neutrophils # (Auto) 10.7 H 1.8-7.7 K/uL Lymphocytes # (Auto) 0.1 L 1.0-4.8 K/uL Monocytes # (Auto) 0.1 0.1-1.0 K/uL Eosinophils # (Auto) 0.00 0.00-0.70 K/uL Basophils # (Auto) 0.04 0.00-0.20 K/uL Absolute Immature Granulocyte (auto 0.04 0-1 K/uL Nucleated Red Blood Cells 0.5 H 0.0-0.19 % Chemistry Labs: Test 04/21/25 05:43 04/21/25 05:40 04/20/25 09:39 Range/Units Whole Blood Glucose 162 H 70-110 MG/DL Sodium Level 134 L 136-145 mmol/L Potassium Level 4.0 3.5-5.1 mmol/L Chloride Level 95 L 101-111 mmol/L Carbon Dioxide Level 18 L 21-32 mmol/L Blood Urea Nitrogen 138 *H 7-18 mg/dL Creatinine 4.2 H 0.5-1.0 mg/dL Glomerular Filtration Rate Calc 10 >90 mL/min Random Glucose 168 H 70-105 mg/dL Total Calcium 7.3 L 8.5-10.1 mg/dL Total Bilirubin 2.0 H 0.2-1.0 mg/dL Aspartate Amino Transf (AST/SGOT) 39 H 10-37 U/L Alanine Aminotransferase (ALT/SGPT) 71 12-78 U/L Alkaline Phosphatase 160 H 50-136 U/L Total Protein 3.9 L 6.0-8.3 g/dL Albumin 1.5 L 3.5-5.0 g/dL Lactic Acid Level 4.8 H 0.8-2.5 mmol/L DIAGNOSTICS / RADIOLOGY RESULTS: [ ] PLAN NEURO: Minimize central acting medications as possible. Fall Precautions. Well lighted room through the day and minimize interruptions through the night to prevent acute delirium. PULMONARY: On mechanical ventilator support via endotracheal tube at this time CARDIOVASCULAR: Follow hemodynamics. Titrate vasopressor to keep MAP >65 or systolic blood pressure >95mmHg DIPS: [ Levophed ] GI & NUTRITION: Continue nutritional support Aspirations precautions Prokinetic agents and laxatives as needed KIDNEYS & ELECTROLYTES: Strict monitoring of intake and output Daily weights Avoid nephrotoxic agents Monitor electrolytes and replace as needed Goal urine output of 30mL/hr or 0.5mL/kg/hr ENDOCRINE: Maintain blood glucose between 100-180 at all times. Insulin sliding scale for blood glucose management INFECTIOUS DISEASE: Trend temperature. Pittman-culture if febrile. Micro: [Pending results ] Antibiotics: [ As per I and D] HEMATOLOGY & COAGULATION: Monitor H&H. Keep Hgb > 7 Transfuse 1 unit of PRBC for Hgb < 7 Transfuse 1 pack of platelets of platelets < 20, 000 Watch for any signs and symptoms of bleeding SKIN: Pressure ulcer prevention per facility protocol Rehab: PT/OT Prophylaxis: GI: [ Protonix 40 mg IV b.i.d.] DVT: [SCDs to the lower extremities ] Code Status: Full Resuscitation Disposition: [Continue medical management in the ICU ] PACHECO TOBAR [facility] Apr 21, 2025 10:04
--- NOTE | 2025-04-21 10:46 | NUR ---
HANDOFF REPORT GIVEN TO NURSE MARKEL AT #1001 IN 4TH FLOOR. PATIENT BEING TRANSFERRED TO ROOM 416 FOR CONTINUITY OF COMFORT MEASURES CARE. ALL QUESTIONS ANSWERED FOR MARKEL.
--- NOTE | 2025-04-21 14:35 | NUR ---
PT lying in bed family @ bedside. upon assessment heart beat and resp absent verified by RN Sawyer and YESI Parikh. notified, NATALYA notified.
--- NOTE | 2025-04-21 14:54 | PN ---
NEPHROLOGY PROGRESS NOTE Date/Time Patient Seen: Apr 21, 2025 SUBJECTIVE: This is an 84-year-old female who was sent to the Emergency Room from the [facility] and the patient has shortness of breath and chest pain. CT scan showed Large right retroperitoneal hematoma extending along the iliopsoas and into the right iliacus, displacing the right kidney. Continues to require vasopressors to maintain blood pressure She has been in the hospital for several days and was noted with worsening renal failure She was noted to have elevated BUN and creatinine, She has had acute on chronic renal dysfunction while in the hospital Continues on diuretics Yesterday afternoon POA decided to place patient on comfort measures then later withdrew decision The patient has been seen for all of the above Renal function continues to worsen Electrolytes are noted Family wishes to proceed with comfort measures, she has been transferred to the medical Family at the bedside Condition is critical and guarded REVIEW OF SYSTEMS: GENERAL: Negative for any nausea, vomiting, fevers, chills, or weight loss. NEUROLOGIC: Negative for any blurry vision, blind spots, double vision, facial asymmetry, dysphagia, dysarthria, hemiparesis, hemisensory deficits, vertigo, ataxia. HEENT: Negative for any head trauma, neck trauma, neck stiffness, photophobia, phonophobia, sinusitis, rhinitis. CARDIAC: Negative for any chest pain, dyspnea on exertion, paroxysmal nocturnal dyspnea, peripheral edema. PULMONARY: Negative for any shortness of breath, wheezing, COPD, or TB exposure. GASTROINTESTINAL: Negative for any abdominal pain, nausea, vomiting, bright red blood per rectum, melena. GENITOURINARY: Negative for any dysuria, hematuria, incontinence. INTEGUMENTARY: Negative for any rashes, cuts, insect bites. RHEUMATOLOGIC: Negative for any joint pains, photosensitive rashes, history of vasculitis or kidney problems. HEMATOLOGIC: Negative for any abnormal bruising, frequent infections or bleeding. Vital Signs (last 8hr) Date Time Temp Pulse Resp B/P (MAP) Pulse Ox O2 Delivery O2 Flow Rate FiO2 04/20/25 12:45 94 18 123/63 (83) 100 04/20/25 12:30 92 18 113/60 (77) 100 04/20/25 12:15 92 16 84/57 (66) 100 04/20/25 12:00 97.3 BIPAP 65 04/20/25 12:00 100 Bi-PAP+ 65 04/20/25 12:00 97 16 95/57 (70) 100 04/20/25 11:45 94 16 123/72 (89) 100 04/20/25 11:30 94 18 95/60 (72) 100 04/20/25 11:19 93 22 100 04/20/25 11:19 95 22 04/20/25 11:15 94 18 96/62 (73) 100 04/20/25 11:00 90 16 108/53 (71) 100 04/20/25 10:45 93 16 153/56 (88) 100 04/20/25 10:30 90 18 110/57 (74) 100 04/20/25 10:15 91 20 133/55 (81) 100 04/20/25 10:00 95 18 115/53 (73) 100 04/20/25 09:45 91 22 110/80 (90) 100 04/20/25 09:32 91 20 105/54 (71) 100 04/20/25 09:30 91 16 120/70 (87) 100 04/20/25 09:15 91 21 89/49 (62) 100 04/20/25 09:00 90 18 129/90 (103) 100 04/20/25 08:45 91 20 100/53 (69) 100 04/20/25 08:38 91 18 93/47 (62) 100 04/20/25 08:30 94 20 90/53 (65) 100 04/20/25 08:15 91 18 101/51 (68) 100 04/20/25 08:00 94 21 89/52 (64) 99 04/20/25 08:00 100 Bi-PAP+ 100 04/20/25 08:00 97.2 BIPAP 100 04/20/25 07:45 91 18 94/48 (63) 100 04/20/25 07:30 91 17 143/79 (100) 100 04/20/25 07:15 91 16 136/53 (80) 100 04/20/25 07:10 92 19 04/20/25 07:06 91 19 100 04/20/25 07:00 91 17 93/51 (65) 100 04/20/25 06:45 91 17 93/37 (55) 100 PHYSICAL EXAM: GENERAL: Pale, acutely ill female, lethargic, no acute distress. Well-nourished. EYES: EOMI. Anicteric. HENT: Moist mucous membranes. No scleral icterus. No cervical lymphadenopathy. LUNGS: Clear to auscultation bilaterally. No accessory muscle use. CARDIOVASCULAR: Regular rate and rhythm. No murmur. No JVD. ABDOMEN: Soft, non-tender and non-distended. No palpable masses. EXTREMITIES: No edema. Non-tender. SKIN: No rashes or lesions. Warm. NEUROLOGIC: No focal neurological deficits. CN II-XII grossly intact, but not individually tested. PSYCHIATRIC: Cooperative. Appropriate mood and affect. Current Medications Medications (Trade) Dose Ordered Sig/Asif Route Start Time Stop Time Status Last Admin Dose Admin Albuterol (DUOneb) 1 UDVIAL [id number] IH 04/06/25 12:00 04/06/25 11:12 DC Artificial Tears (Artificial Tears) 2 DROPS Q4H OU 04/12/25 17:00 04/14/25 13:15 DC 04/14/25 13:14 1 DROP Azithromycin 250 ml @ 250 mls/hr ONCE IVPB 04/06/25 09:00 04/06/25 10:00 DC 04/06/25 10:45 250 MLS/HR Bacitracin (Bacitracin 28.4gm) 1 ALY AD BID TP 04/20/25 09:00 05/20/25 08:59 Bacitracin (Bacitracin 28.4gm) apply to right and left thi... BID TP 04/15/25 21:00 04/19/25 14:52 DC 04/20/25 09:35 1 GM Bumetanide (Bumex 1mg Vial) 2 mg BID IVP 04/17/25 21:00 04/19/25 14:52 DC 04/19/25 09:43 2 MG Bumetanide (Bumex 1mg Vial) 2 mg BID IVP 04/20/25 09:00 05/20/25 08:59 04/20/25 09:12 2 MG Calcium Gluconate (Calcium Gluc 1gm Vial) 1 gm ONCE IVPB 04/08/25 17:00 05/08/25 16:59 UNV Calcium Gluconate (Calcium Gluc 1gm Vial) 1 gm PROTOCOL IVPB 04/09/25 05:00 04/19/25 14:52 DC 04/09/25 05:17 1 GM Dexmedetomidine/ Sodium Chloride (PRECEdex 400MCG/ 100ML-NS) 400 mcg PROTOCOL IV 04/06/25 18:30 04/10/25 11:09 DC 04/09/25 09:22 400 MCG Dexmedetomidine/ Sodium Chloride (PRECEdex 400MCG/ 100ML-NS) 400 mcg PROTOCOL IV 04/12/25 18:30 04/14/25 13:15 DC 04/12/25 19:00 400 MCG Dextrose 1,000 ml @ 75 mls/hr [id number] IV 04/06/25 20:30 04/07/25 12:45 DC 04/06/25 20:29 75 MLS/HR Dextrose/Sodium Chloride 1,000 ml @ 75 mls/hr [id number] IV 04/09/25 10:00 04/10/25 21:01 DC 04/09/25 15:00 75 MLS/HR Dobutamine HCl/ Dextrose 250 ml @ 45.518 mls/ hr PROTOCOL IV 04/10/25 11:30 04/19/25 14:52 DC 04/19/25 05:18 45.518 MLS/HR Dobutamine HCl/ Dextrose 250 ml @ 0 mls/hr PROTOCOL IV 04/19/25 22:00 05/19/25 21:59 04/20/25 05:21 45.49 MLS/HR Doxycycline Hyclate 250 ml @ 125 mls/hr DAILY IV 04/19/25 22:30 04/29/25 22:29 04/20/25 09:11 125 MLS/HR Doxycycline Hyclate 250 ml @ 125 mls/hr Q12H IV 04/10/25 11:30 04/19/25 14:52 DC 04/19/25 11:51 125 MLS/HR Enoxaparin Sodium (Lovenox) 30 mg DAILY SQ 04/07/25 08:00 04/07/25 00:16 DC Epinephrine HCl 10 mg/Sodium Chloride 250 ml @ 0 mls/hr PROTOCOL IV 04/06/25 22:00 04/11/25 11:49 DC Epoetin Prashanth-epbx (Retacrit) 10,000 unit [id number] SQ 04/12/25 09:00 04/19/25 14:52 DC 04/19/25 09:44 10,000 UNIT Fentanyl Citrate 100 ml @ 2.5 mls/hr PROTOCOL IV 04/06/25 09:30 04/08/25 01:51 DC 04/08/25 01:39 2.5 MLS/HR Fentanyl/Sodium Chloride 250 ml @ 0.1 mls/hr PROTOCOL IV 04/08/25 02:00 04/12/25 12:22 DC 04/12/25 01:26 0.1 MLS/HR Fluconazole/ Sodium Chloride 100 ml @ 100 mls/hr DAILY IV 04/17/25 14:00 04/19/25 14:52 DC 04/19/25 09:42 100 MLS/HR Furosemide (LASix 20MG VIAL) 20 mg Q8H IV 04/08/25 15:30 04/10/25 11:09 DC 04/10/25 08:54 20 MG Furosemide 100 mg/ Sodium Chloride 100 ml @ 15 mls/hr PROTOCOL IV 04/10/25 11:30 04/17/25 15:49 DC 04/17/25 10:00 15 MLS/HR Gabapentin (NEURontin 100 mg CAP) 100 mg BID PO 04/18/25 21:00 04/19/25 14:52 TX 04/19/25 09:40 100 MG Gabapentin (NEURontin 100 mg CAP) 100 mg BID PO 04/20/25 09:00 05/20/25 08:59 04/20/25 09:14 100 MG Gabapentin (NEURontin 100 mg CAP) 100 mg TID PO 04/14/25 14:00 04/18/25 12:07 TX 04/18/25 09:13 100 MG Insulin Human Regular (humuLIN R 100 UNIT/ML 3ML) INSULIN SLIDING SCAL... Q6H6 SQ 04/10/25 12:00 04/19/25 14:52 TX 04/18/25 17:52 8 UNIT Insulin Human Regular (humuLIN R 100 UNIT/ML 3ML) INSULIN SLIDING SCAL... Q6H6 SQ 04/20/25 00:00 05/20/25 00:00 Ipratropium [place] (AtrovENT UD) 0.5 MG [id number] IH 04/20/25 00:00 05/20/25 00:00 04/20/25 11:15 0.5 MG Ipratropium [place] (AtrovENT UD) 0.5 mg [id number] IH 04/07/25 12:00 04/19/25 14:52 DC 04/19/25 11:20 0.5 MG Ipratropium [place] (AtrovENT UD) 0.5 mg [id number] IH 04/07/25 22:10 04/07/25 11:41 DC Lactated Ringer's (Lactated Ringers 1000ml) 1,000 ml BOLUS IV 04/06/25 16:30 04/08/25 07:52 DC Lidocaine (Lidoderm Patch 5%) 1 patch DAILY TP 04/15/25 09:00 04/19/25 14:52 DC 04/19/25 09:44 1 PATCH Linezolid 300 ml @ 150 mls/hr Q12H IV 04/09/25 14:00 04/09/25 16:14 DC Linezolid 300 ml @ 150 mls/hr Q12H IV 04/09/25 16:30 04/18/25 19:29 DC 04/18/25 15:33 150 MLS/HR Magnesium Sulfate 50 ml @ 0 mls/hr PROTOCOL IV 04/09/25 05:00 04/19/25 14:52 DC 04/12/25 08:56 25 MLS/HR Meropenem (Merrem 1gm) 1 gm Q12H IVPB 04/06/25 11:00 04/08/25 07:56 DC 04/07/25 23:48 1 GM Meropenem (Merrem 1gm) 1 gm Q24H IVPB 04/08/25 23:00 04/10/25 22:53 DC 04/10/25 00:08 1 GM Meropenem (Merrem 1gm) 1 gm Q24H IVPB 04/11/25 02:00 04/19/25 14:52 DC 04/19/25 03:16 1 GM Meropenem (Merrem 1gm) 1 gm Q24H IVPB 04/20/25 04:00 04/30/25 03:59 04/20/25 05:22 1 GM Methylprednisolone Sodium Succinate (Solu-medROL 40MG) 40 mg Q12H9 IVP 04/13/25 21:00 04/19/25 14:52 DC 04/19/25 09:43 40 MG Methylprednisolone Sodium Succinate (Solu-medROL 40MG) 40 mg Q12H9 IVP 04/20/25 09:00 05/20/25 08:59 04/20/25 09:12 40 MG Methylprednisolone Sodium Succinate (Solu-medROL 40MG) 40 mg Q6H IVP 04/11/25 16:00 04/13/25 16:54 DC 04/13/25 10:39 40 MG Methylprednisolone Sodium Succinate (Solu-medROL 40MG) 60 mg Q6H IVP 04/08/25 10:00 04/11/25 11:49 DC 04/11/25 08:48 60 MG Methylprednisolone Sodium Succinate (Solu-medROL 125MG) 60 mg Q6H IVP 04/06/25 22:00 04/08/25 07:50 DC 04/08/25 03:43 60 MG Metolazone (zarOXOlyn) 5 mg BID PO 04/20/25 09:00 05/20/25 08:59 04/20/25 09:13 5 MG Metolazone (zarOXOlyn) 5 mg [id number] PO 04/17/25 06:30 04/19/25 14:52 DC 04/19/25 12:04 5 MG Micafungin Sodium 100 ml @ 100 mls/hr Q24H IV 04/08/25 10:00 04/09/25 09:59 DC 04/08/25 09:19 100 MLS/HR Norepinephrine 250 ml @ 0 mls/hr PROTOCOL IV 04/06/25 10:30 04/06/25 21:28 DC 04/06/25 21:18 263.253 MLS/HR Norepinephrine Bitartrate (Norepineph 16 Mg/250ml NS Premix) Protocol PROTOCOL IV 04/17/25 19:00 04/19/25 14:52 DC 04/18/25 15:35 16 MG Norepinephrine Bitartrate (Norepineph 16 Mg/250ml NS Premix) per protocol PROTOCOL IV 04/19/25 22:00 05/19/25 21:59 Norepinephrine Bitartrate 32 mg/ Sodium Chloride 250 ml @ 0 mls/hr PROTOCOL IV 04/07/25 08:30 04/18/25 09:14 DC 04/08/25 01:59 0 MLS/HR Norepinephrine Bitartrate 32 mg/ Sodium Chloride 250 ml @ 0 mls/hr Q0M STAT IV 04/06/25 21:20 04/06/25 21:31 DC 04/06/25 21:50 0 MLS/HR Pantoprazole Sodium (PROTonix 40MG INJ) 40 mg BID IVP 04/07/25 09:00 04/19/25 14:52 DC 04/19/25 09:43 40 MG Pantoprazole Sodium (PROTonix 40MG INJ) 40 mg BID IVP 04/20/25 09:00 05/20/25 08:59 04/20/25 09:12 40 MG Pharmacy Profile Note (Pharmacy Communication) 1 each ONCE MISC 04/08/25 08:30 04/08/25 08:51 DC Pharmacy Profile Note (Pharmacy Communication) 1 each ONCE MISC 04/08/25 13:30 04/08/25 11:16 DC Pharmacy Profile Note (Pharmacy Communication) 1 each ONCE MISC 04/09/25 10:00 04/09/25 09:58 DC Pharmacy Profile Note (Pharmacy Communication) 1 each ONCE MISC 04/09/25 13:30 04/09/25 13:37 DC Pharmacy Profile Note (Pharmacy Communication) 1 each Q12H9 MISC 04/06/25 21:00 04/06/25 10:19 DC Sodium Bicarbonate 150 meq/Dextrose 1,000 ml @ 50 mls/hr Q20H IVP 04/07/25 00:30 04/08/25 11:02 DC 04/07/25 01:02 50 MLS/HR Sodium Bicarbonate 150 meq/Dextrose 1,000 ml @ 100 mls/hr Q10H IVP 04/08/25 11:30 04/09/25 09:46 DC 04/08/25 21:59 100 MLS/HR Sodium Bicarbonate 150 meq/Dextrose/Water 1,000 ml @ 100 mls/hr Q10H IVP 04/08/25 11:00 04/08/25 11:07 DC Sodium Chloride 500 ml @ 500 mls/hr Q1H IV 04/06/25 21:00 04/07/25 02:12 DC 04/06/25 21:19 500 MLS/HR Sodium Chloride 500 ml @ 500 mls/hr Q1H IV 04/08/25 08:48 04/08/25 11:04 DC 04/08/25 09:19 500 MLS/HR Sodium Chloride 500 ml @ 0 mls/hr Q0M IV 04/09/25 10:00 04/10/25 11:59 DC 04/09/25 10:04 500 MLS/HR Sodium Chloride 500 ml @ 0 mls/hr Q0M IV 04/09/25 14:00 04/10/25 11:59 DC Sodium Chloride 500 ml @ 0 mls/hr Q0M IV 04/09/25 18:00 04/10/25 11:59 DC Sodium Chloride 500 ml @ 0 mls/hr Q0M IV 04/09/25 22:00 04/10/25 11:59 DC 04/09/25 22:00 999 MLS/HR Sodium Chloride 500 ml @ 0 mls/hr Q0M IV 04/10/25 02:00 04/10/25 11:59 DC 04/10/25 02:00 999 MLS/HR Sodium Chloride 500 ml @ 0 mls/hr Q0M IV 04/10/25 06:00 04/10/25 11:59 DC 04/10/25 06:08 999 MLS/HR Sodium Chloride 1,000 ml @ 100 mls/hr Q10H IV 04/06/25 10:00 04/06/25 11:12 DC 04/06/25 10:51 100 MLS/HR Sodium Chloride 1,000 ml @ 100 mls/hr Q10H IV 04/06/25 11:30 04/07/25 12:44 DC Sodium Chloride 1,000 ml @ 500 mls/hr Q2H IV 04/08/25 08:30 04/08/25 08:51 DC Sodium Chloride (NS 50ml) 50 ml AD IV 04/09/25 05:00 04/09/25 05:12 DC Sodium Chloride 154 meq/Dextrose 1,000 ml @ 50 mls/hr Q20H IV 04/07/25 13:00 04/08/25 07:58 DC 04/07/25 13:10 50 MLS/HR Thiamine HCl (Vitamin B-1) 100 mg DAILY IM 04/11/25 09:00 04/19/25 14:52 DC 04/19/25 09:41 100 MG Thiamine HCl (Vitamin B-1) 100 mg DAILY PO 04/20/25 09:00 05/20/25 08:59 04/20/25 09:12 100 MG Vancomycin HCl (Vancomycin 750mg) 750 mg Q24H IVPB 04/07/25 09:00 04/08/25 07:56 DC 04/07/25 08:58 750 MG Vancomycin HCl (Vancomycin 750mg) 750 mg Q48H IVPB 04/09/25 09:00 04/09/25 13:28 DC 04/09/25 09:56 750 MG Vancomycin HCl (Vancomycin Protocol) 1 each AD IV 04/06/25 10:00 04/09/25 13:28 DC Vasopressin 40 units/Sodium Chloride 40 ml @ 0 mls/hr PROTOCOL IV 04/06/25 21:30 04/11/25 11:49 DC 04/07/25 04:33 1.8 MLS/HR Vitamin B Complex/ Vit C/Folic Acid (Nephrovite Tablet) 1 cap DAILY PO 04/11/25 09:00 04/19/25 14:52 DC 04/19/25 09:43 1 CAP Vitamin B Complex/ Vit C/Folic Acid (Nephrovite Tablet) 1 cap DAILY PO 04/20/25 09:00 05/20/25 08:59 04/20/25 09:13 1 CAP LABORATORY: [ ] Hematology Labs: Test 04/21/25 05:40 Range/Units White Blood Count 11.0 H 4.8-10.8 K/uL Red Blood Count 2.63 L 4.00-5.50 MIL/uL Hemoglobin 8.5 L 12.0-16.0 g/dL Hematocrit 24.7 L 36-48 % Mean Corpuscular Volume 93.9 79-99 fL Mean Corpuscular Hemoglobin 32.3 27.0-33.0 pg Mean Corpuscular Hemoglobin Concent 34.4 32.0-36.0 g/dL Red Cell Distribution Width 17.7 H 11.0-15.5 % Platelet Count 72 L 130-400 K/uL Mean Platelet Volume 12.1 H 7.5-10.5 fL Immature Granulocyte % (Auto) 0.4 0-1 % Neutrophils (%) (Auto) 96.8 H 40.0-77.0 % Lymphocytes (%) (Auto) 1.3 L 21.0-51.0 % Monocytes (%) (Auto) 1.1 L 3.0-13.0 % Eosinophils (%) (Auto) 0.0 0.0-8.0 % Basophils (%) (Auto) 0.4 0.0-5.0 % Neutrophils # (Auto) 10.7 H 1.8-7.7 K/uL Lymphocytes # (Auto) 0.1 L 1.0-4.8 K/uL Monocytes # (Auto) 0.1 0.1-1.0 K/uL Eosinophils # (Auto) 0.00 0.00-0.70 K/uL Basophils # (Auto) 0.04 0.00-0.20 K/uL Absolute Immature Granulocyte (auto 0.04 0-1 K/uL Nucleated Red Blood Cells 0.5 H 0.0-0.19 % Chemistry Labs: Test 04/21/25 05:43 04/21/25 05:40 04/20/25 09:39 Range/Units Whole Blood Glucose 162 H 70-110 MG/DL Sodium Level 134 L 136-145 mmol/L Potassium Level 4.0 3.5-5.1 mmol/L Chloride Level 95 L 101-111 mmol/L Carbon Dioxide Level 18 L 21-32 mmol/L Blood Urea Nitrogen 138 *H 7-18 mg/dL Creatinine 4.2 H 0.5-1.0 mg/dL Glomerular Filtration Rate Calc 10 >90 mL/min Random Glucose 168 H 70-105 mg/dL Total Calcium 7.3 L 8.5-10.1 mg/dL Total Bilirubin 2.0 H 0.2-1.0 mg/dL Aspartate Amino Transf (AST/SGOT) 39 H 10-37 U/L Alanine Aminotransferase (ALT/SGPT) 71 12-78 U/L Alkaline Phosphatase 160 H 50-136 U/L Total Protein 3.9 L 6.0-8.3 g/dL Albumin 1.5 L 3.5-5.0 g/dL Lactic Acid Level 4.8 H 0.8-2.5 mmol/L DIAGNOSTICS / RADIOLOGY: [address] [address] IMAGING REPORT Signed PATIENT: LORE OCONNELL MR#: [id number] : 1940 SEX: F AGE: 84 LOCATION: [facility] ORDER 0932 STATUS: ADM IN REPORT#: [id number] SERVICE REASON: EF ORDERING PHYSICIAN: PACHECO TOBAR PROCEDURE: ECHO FU LD - ECHO 2-D F/U-LTD APPROVED REPORT EXAM: Two-dimensional and M-mode echocardiogram with Doppler and color Doppler. INDICATION ICD: Assess LV Function 2D Dimensions RVDd 4.7 cm LVED Vol(simp.) 78.4 mL LVES Vol(simp.) 43.9 mL LVEF(%, simp.) 44 % LA ESV INDEX (BP) 67.90 mL/m2 Deformation Strain Apical 4 -10.9 % Apical 2 -11.3 % Apical 3 -14.6 % Global Strain -12.3 % Mitral Valve MV E Vmax 98.0 cm/s DECEL Time 272 ms MV A Vmax 31.0 cm/s P 1/2 T 51 ms E/A ratio 3.2 MVA (PHT) 4.3 cm2 TDI E/E' Medial 18.7 E/E' Lateral 10.6 Medial E' Peak V 5.23 cm/s Lateral E' Peak V 9.27 cm/s Left Ventricle The left ventricle is normal size. There is normal left ventricular wall thickness. LVEF is 40-45%. Stage III diastolic dysfunction. Right Ventricle The right ventricle is mildly dilated. The right ventricular systolic function is normal. Device lead is present in the right ventricle. Atria The left atrium is severely dilated. The right atrium is severely dilated. Aortic Valve The aortic valve is trileaflet, mildly thickened but opens well. Trace aortic regurgitation by color doppler. There is no aortic valvular stenosis. Mitral Valve Mitral valve leaflets open well. Mitral valve leaflets are mildly thickened. Mitral regurgitation is mild. There is no mitral valve stenosis. Tricuspid Valve The tricuspid valve is normal in structure and function. There is no tricuspid valve regurgitation noted. Pulmonic Valve The pulmonary valve is normal in structure and function. Great Vessels The aortic root is normal in size. The IVC was not visualized. Pericardium Trace pericardial effusion. Other Information Quality : Limited/Follow-up Rhythm : NSR Conclusion LVEF is 40-45%. Stage III diastolic dysfunction. Severe biatrial enlargement Device lead is present in the right ventricle. DICTATED BY: KASH DUONG DO DATE: 04/18/25939 ELECTRONICALLY SIGNED BY: KASH DUONG DO DATE: 04/18/252029 PATIENT: LORE OCONNELL MR#: [id number] : 1940 SEX: F AGE: 84 LOCATION: [facility] ORDER 2300 STATUS: ADM IN REPORT#: [id number] SERVICE 0600 REASON: Resp failure ORDERING PHYSICIAN: PACHECO TOBAR PROCEDURE: CXR1VW - CHEST 1VW EXAM: CR Chest, 1 View. CLINICAL HISTORY: Resp failure COMPARISON: 04/17/2025 FINDINGS: Right PICC catheter with the tip in the superior vena cava. A nasogastric tube is seen with the tip likely in the gastroesophageal junction; recommend further advancement of the tube for optimal positioning. LUNGS: Interval improvement in bilateral perihilar and basilar airspace disease. PLEURAL SPACES: No pneumothorax. Interval improvement in bilateral pleural effusion, with residual small left pleural effusion with adjacent lung atelectasis. MEDIASTINUM: Mild stable cardiomegaly. Interval reduction in pulmonary vascular congestion. Atherosclerotic aortic arch. Left pacemaker with intact leads in place. BONES: No aggressive appearing osseous lesion seen. IMPRESSION: 1. Interval improvement in bilateral perihilar and basilar airspace disease. 2. Interval improvement in bilateral pleural effusion with residual small left pleural effusion, with adjacent lung atelectasis. 3. Right PICC catheter with tip in the superior vena cava. 4. Nasogastric tube tip likely at the gastroesophageal junction; recommend further advancement for optimal positioning. /[place] DICTATED BY: SHAKIR GARCIA Jr., MD DATE: 04/18/251058 ELECTRONICALLY SIGNED BY: SHAKIR GARCIA Jr., MD DATE: 04/18/251058 PATIENT: LORE OCONNELL MR#: [id number] : 1940 SEX: F AGE: 84 LOCATION: [facility] ORDER 2300 STATUS: ADM IN REPORT#: [id number] SERVICE 0600 REASON: SOB ORDERING PHYSICIAN: BOYD GUERRA PAC PROCEDURE: CXR1VW - CHEST 1VW EXAM: CR Chest, 1 View. CLINICAL HISTORY: SOB COMPARISON: 04/16/2025 FINDINGS: Right-sided PICC catheter with tip in the superior vena cava. LUNGS: Mild interval increase in right pleural effusion with adjacent lung atelectasis. Stable small left pleural effusion. Persistent patchy areas of ground-glass opacities in the right parahilar region are due to probable pulmonary edema. PLEURAL SPACES: No pneumothorax. MEDIASTINUM: Mild stable cardiomegaly with bilateral pulmonary congestion. A left pacemaker device with intact leads in situ. Atherosclerotic aortic knob. BONES: No acute osseous abnormality. IMPRESSION: 1. Mild interval increase in right pleural effusion with adjacent lung atelectasis. Stable small left pleural effusion. 2. Mild stable cardiomegaly with bilateral pulmonary congestion. Persistent patchy areas of groundglass opacities in the right parahilar region, likely due to pulmonary edema. 3. Right-sided PICC catheter with tip in the superior vena cava. Compared to the prior study, there is an interval progression of right pleural effusion with adjacent lung atelectasis. /[place] DICTATED BY: SHAKIR GARCIA Jr., MD DATE: 04/18/251109 ELECTRONICALLY SIGNED BY: SHAKIR GARCIA Jr., MD DATE: 04/18/251109 PATIENT: LORE OCONNELL MR#: [id number] : 1940 SEX: F AGE: 84 LOCATION: [facility] ORDER 0733 STATUS: ADM IN REPORT#: [id number] SERVICE 0732 REASON: SOB ORDERING PHYSICIAN: BOYD GUERRA PAC PROCEDURE: CXR1VW - CHEST 1VW EXAM: CR Chest, single view. CLINICAL HISTORY: Shortness of breath. COMPARISON: Prior chest radiograph dated April 15, 2025 FINDINGS: Right-sided central venous catheter with tip in the superior vena cava. Mild cardiomegaly with bilateral pulmonary congestion. Mild bilateral pleural effusion is left more than right with adjacent lung atelectasis. Patchy areas of groundglass opacities in the right parahilar region are probable pulmonary edema. A battery pack is in the left anterior chest wall with pacemaker wires in the right atrium and ventricles. No acute osseous abnormality. Degenerative changes in the mid and lower thoracic spine. IMPRESSION: Right-sided central venous catheter with tip in the superior vena cava. Mild cardiomegaly with bilateral pulmonary congestion. Mild bilateral pleural effusion is left more than right with adjacent lung atelectasis. Patchy areas of groundglass opacities in the right parahilar region are probable pulmonary edema. A battery pack is in the left anterior chest wall with pacemaker wires in the right atrium and ventricles. Compared to the prior study, there is an interval progression of bilateral pleural effusion development of groundglass opacities in the right parahilar region. /[place] DICTATED BY: SHAKIR GARCIA Jr., MD DATE: 04/16/25904 ELECTRONICALLY SIGNED BY: SHAKIR GARCIA Jr., MD DATE: 04/16/25904 PATIENT: LORE OCONNELL MR#: [id number] : 1940 SEX: F AGE: 84 LOCATION: [facility] ORDER STATUS: ADM IN REPORT#: [id number] SERVICE 0847 REASON: bipap support ORDERING PHYSICIAN: BOYD GUERRA PAC PROCEDURE: CXR1VW - CHEST 1VW EXAM: CR CHEST, 1 VIEW CLINICAL HISTORY: bipap support COMPARISON: CR: CHEST 1VW dated 04/13/2025 06:08 AM EST: TECHNIQUE: Single frontal radiograph of the chest was obtained. FINDINGS: Lines/Devices: A pacemaker is seen with intact leads. The previously noted endotracheal tube is not seen, mostly removed. Lungs: stationary course as regards the previously noted central pulmonary congestion seen in both lungs. Blunted left costophrenic angle still noted, suggestive of minimal pleural effusion. There is no pneumothorax. Mediastinum and cardiovascular structures: Still noted mild cardiomegaly. Prominent aortic calcifications with atheromatous calcifications. The central airway and mediastinal contours are unremarkable. Bones and soft tissues: Unremarkable. IMPRESSION: 1. Mild reduction in the previously noted central pulmonary venous congestion. 2. Blunted left costophrenic angle, suggestive of minimal pleural effusion. 3. Mild cardiomegaly. 4. Prominent aortic calcifications with atheromatous calcifications. 5.As compared to the previous CR: CHEST 1VW dated 04/13/2025 06:08 AM EST, stationary course as regards the previously noted central pulmonary congestion as well as mild cardiomegaly, the previously noted endotracheal tube is not seen in today's study, likely surgically removed .No new findings /[place] DICTATED BY: HENRIK FOX MD DATE: 04/15/252249 ELECTRONICALLY SIGNED BY: HENRIK FOX MD DATE: 04/15/252249 PATIENT: LORE OCONNELL MR#: [id number] : 1940 SEX: F AGE: 84 LOCATION: [facility] ORDER 99 STATUS: ADM IN REPORT#: [id number] SERVICE 06 REASON: chf ORDERING PHYSICIAN: SHADE YOUNGBLOOD MD PROCEDURE: CXR1VW - CHEST 1VW EXAM: CR Chest, 1 View. CLINICAL HISTORY: CHF COMPARISON: 04/12/2025 FINDINGS: The ET tube tip is 4.4 cm away from the juanito. The nasogastric tube is seen below the left hemidiaphragm. LUNGS: Left basilar atelectasis. Otherwise, the lungs are essentially clear. PLEURAL SPACES: No pneumothorax. Stable small left pleural effusion. MEDIASTINUM: Mild cardiomegaly with interval reduction in the central pulmonary venous congestion in both lungs. The pacemaker leads overlie the right atrium and right ventricle. BONES: No acute osseous abnormality. IMPRESSION: 1. Mild cardiomegaly with interval reduction in central pulmonary venous congestion. 2. Stable small left pleural effusion. 3. ET tube tip 4.4 cm from juanito. 4. Nasogastric tube below the left hemidiaphragm. /[place] DICTATED BY: SHAKIR GARCIA Jr., MD DATE: 04/13/251035 ELECTRONICALLY SIGNED BY: SHAKIR GARCIA Jr., MD DATE: 04/13/251035 PATIENT: LORE OCONNELL MR#: [id number] : 1940 SEX: F AGE: 84 LOCATION: 2BH ORDER 2300 STATUS: ADM IN REPORT#: [id number] SERVICE 0600 REASON: PNA ORDERING PHYSICIAN: ZENOBIA PEREZ MD PROCEDURE: CXR1VW - CHEST 1VW CHEST 1VW REASON: PNA COMPARISON: Prior chest radiograph from 04/09/2025 is available. FINDINGS: Single view of the chest was obtained. The study is limited due to poor inspiratory radiograph patient is rotated.. The lung [place] are clear. There is no evidence of any vascular congestion. There is mild cardiomegaly with left ventricular contour. There is a support lines including endotracheal tube and nasogastric tube are in satisfactory position. There is a left-sided pacemaker with lead in right atrium and right ventricle.. Mediastinum and bony thorax appear unremarkable. The bony thorax demonstrate mild osteopenia. IMPRESSION: 1. Mild cardiomegaly 2. Support lines satisfactory position 3. Limited study with no evidence of airspace consolidation or pulmonary venous congestion. DICTATED BY: JADEN CHAVIRA MD DATE: 04/10/251251 ELECTRONICALLY SIGNED BY: JADEN CHAVIRA MD DATE: 04/10/251255 PATIENT: LORE OCONNELL MR#: [id number] : 1940 SEX: F AGE: 84 LOCATION: 2BH ORDER 0837 STATUS: ADM IN REPORT#: [id number] SERVICE 0813 REASON: septic/SOB ORDERING PHYSICIAN: ZENOBIA PEREZ MD PROCEDURE: CAP WO - CT CHEST/ABD/PELV W/O CONTRAST ADDENDUM REPORT ADDENDUM: Results were shared by telephone at 09:07 PM on 04-08-2025 and acknowledged by the Patient's Nurse Ms. Sue Quinones /[place] EXAM: CT Chest, Abdomen and Pelvis without Intravenous Contrast CLINICAL HISTORY: evaluation of sepsis. TECHNIQUE: Axial computed tomography images of the chest, abdomen and pelvis without intravenous contrast. Dose reduction technique was used including one or more of the following: automated exposure control, adjustment of mA and kV according to patient size, and/or iterative reconstruction. Total exam DLP is 1117 mGy x cm. CONTRAST: None. COMPARISON: Prior chest radiograph dated 04/08/2025, acquired at 04:52 hours. FINDINGS: CHEST: LUNGS: Endotracheal tube with its tip positioned 3.5 cm short of juanito. Moderate sized bilateral pleural effusions with atelectasis/consolidation of the lung bases. Multifocal areas of ground-glass opacities, mosaic attenuation are present in the remainder of the lung parenchyma bilaterally. PLEURAL SPACES: Moderate sized bilateral pleural effusions. No pneumothorax. HEART AND MEDIASTINUM: Left chest wall pacemaker with electrodes terminating in the lumen of the coronary sinus and the right heart chambers. Atheromatous calcification of the aortic arch and the coronary arteries. Right sided PICC line visualized with its tip terminating in the right brachiocephalic vein. Feeding tube visualized with its tip terminating at the gastroesophageal junction. Mild cardiomegaly. Coronary arterial calcifications present. Mitral and aortic valve annulus calcifications. No significant pericardial effusion. LYMPH NODES: No lymphadenopathy. ABDOMEN AND PELVIS: LIVER: Ill-defined hypodense area measuring 2 x 2.1 cm in the segment VII of the subcapsular region of the right hepatic lobe, without areas of calcification or fat in it. GALLBLADDER AND BILE DUCTS: Gallbladder is surgically absent. No biliary ductal dilatation. PANCREAS: Pancreas is atrophic. No pancreatic ductal dilatation or calculi. SPLEEN: Spleen is atrophic and shrunken with areas of capsular calcifications. ADRENAL GLANDS: Unremarkable. KIDNEYS, URETERS, AND BLADDER: Bilateral intrarenal segmental arterial calcifications. Multiple right sided renal calculi, measuring up to 4 mm. A Mcdowell's catheter is appropriately positioned in the bladder lumen. No hydronephrosis. No ureteral or bladder calculi. STOMACH AND BOWEL: Evidence of prior surgical intervention involving the stomach, incompletely evaluated due to lack of optimal luminal distension. Gastric bypass surgery status with appropriate position of the gastrojejunal anastomosis. No obstruction. No wall thickening. No CT evidence of colitis or acute diverticulitis. APPENDIX: No CT evidence for appendicitis. PERITONEUM: No free fluid. No free air. LYMPH NODES: No lymphadenopathy. REPRODUCTIVE: Uterus is not distinctly visualized. VASCULATURE: The abdominal aorta demonstrates atheromatous calcification without aneurysm or dissection. BONES AND SOFT TISSUES: Diffuse body wall edema. Right retroperitoneal space hyperdense collection, measuring approximately 14 x 7 x 25 cm, visualized on the anterior aspect of the iliopsoas. It is extending toward the right groin. The right iliacus muscle also appears bulky with similar hyperdense contents, likely representing hematoma. The collection is visualized in the retroperitoneal compartment and is displacing the right kidney anteriorly. Severe osteopenia. Chronic appearing compression deformities of multiple thoracolumbar vertebrae, including T6, T8, T9, T11, T1. The maximum vertebral height loss is visualized at T11 level with increased thoracolumbar junction kyphosis. Grade I anterolisthesis of L4 over L5 without spondylolysis. Dextroscoliosis of the thoracolumbar spine curvature. IMPRESSION: 1. Findings consistent with aspiration pneumonitis. Compared with the prior chest radiograph dated 04/08/2025, acquired at 04:52 hours, the pulmonary parenchymal findings are stable. Right PICC line and the feeding tube need to be repositioned. 2. Large right retroperitoneal hematoma extending along the iliopsoas and into the right iliacus, displacing the right kidney. 3. Several stable chronic and incidental findings are noted, as detailed in the body of the report. /[place] DICTATED BY: HENRIK FOX MD DATE: 04/08/252128 ELECTRONICALLY SIGNED BY: DATE: EXAM: CT Chest, Abdomen and Pelvis without Intravenous Contrast CLINICAL HISTORY: evaluation of sepsis. TECHNIQUE: Axial computed tomography images of the chest, abdomen and pelvis without intravenous contrast. Dose reduction technique was used including one or more of the following: automated exposure control, adjustment of mA and kV according to patient size, and/or iterative reconstruction. Total exam DLP is 1117 mGy x cm. CONTRAST: None. COMPARISON: Prior chest radiograph dated 04/08/2025, acquired at 04:52 hours. FINDINGS: CHEST: LUNGS: Endotracheal tube with its tip positioned 3.5 cm short of juanito. Moderate sized bilateral pleural effusions with atelectasis/consolidation of the lung bases. Multifocal areas of ground-glass opacities, mosaic attenuation are present in the remainder of the lung parenchyma bilaterally. PLEURAL SPACES: Moderate sized bilateral pleural effusions. No pneumothorax. HEART AND MEDIASTINUM: Left chest wall pacemaker with electrodes terminating in the lumen of the coronary sinus and the right heart chambers. Atheromatous calcification of the aortic arch and the coronary arteries. Right sided PICC line visualized with its tip terminating in the right brachiocephalic vein. Feeding tube visualized with its tip terminating at the gastroesophageal junction. Mild cardiomegaly. Coronary arterial calcifications present. Mitral and aortic valve annulus calcifications. No significant pericardial effusion. LYMPH NODES: No lymphadenopathy. ABDOMEN AND PELVIS: LIVER: Ill-defined hypodense area measuring 2 x 2.1 cm in the segment VII of the subcapsular region of the right hepatic lobe, without areas of calcification or fat in it. GALLBLADDER AND BILE DUCTS: Gallbladder is surgically absent. No biliary ductal dilatation. PANCREAS: Pancreas is atrophic. No pancreatic ductal dilatation or calculi. SPLEEN: Spleen is atrophic and shrunken with areas of capsular calcifications. ADRENAL GLANDS: Unremarkable. KIDNEYS, URETERS, AND BLADDER: Bilateral intrarenal segmental arterial calcifications. Multiple right sided renal calculi, measuring up to 4 mm. A Mcdowell's catheter is appropriately positioned in the bladder lumen. No hydronephrosis. No ureteral or bladder calculi. STOMACH AND BOWEL: Evidence of prior surgical intervention involving the stomach, incompletely evaluated due to lack of optimal luminal distension. Gastric bypass surgery status with appropriate position of the gastrojejunal anastomosis. No obstruction. No wall thickening. No CT evidence of colitis or acute diverticulitis. APPENDIX: No CT evidence for appendicitis. PERITONEUM: No free fluid. No free air. LYMPH NODES: No lymphadenopathy. REPRODUCTIVE: Uterus is not distinctly visualized. VASCULATURE: The abdominal aorta demonstrates atheromatous calcification without aneurysm or dissection. BONES AND SOFT TISSUES: Diffuse body wall edema. Right retroperitoneal space hyperdense collection, measuring approximately 14 x 7 x 25 cm, visualized on the anterior aspect of the iliopsoas. It is extending toward the right groin. The right iliacus muscle also appears bulky with similar hyperdense contents, likely representing hematoma. The collection is visualized in the retroperitoneal compartment and is displacing the right kidney anteriorly. Severe osteopenia. Chronic appearing compression deformities of multiple thoracolumbar vertebrae, including T6, T8, T9, T11, T1. The maximum vertebral height loss is visualized at T11 level with increased thoracolumbar junction kyphosis. Grade I anterolisthesis of L4 over L5 without spondylolysis. Dextroscoliosis of the thoracolumbar spine curvature. IMPRESSION: 1. Findings consistent with aspiration pneumonitis. Compared with the prior chest radiograph dated 04/08/2025, acquired at 04:52 hours, the pulmonary parenchymal findings are stable. Right PICC line and the feeding tube need to be repositioned. 2. Large right retroperitoneal hematoma extending along the iliopsoas and into the right iliacus, displacing the right kidney. 3. Several stable chronic and incidental findings are noted, as detailed in the body of the report. /[place] DICTATED BY: HENRIK FOX MD DATE: 04/08/252056 ELECTRONICALLY SIGNED BY: HENRIK FOX MD DATE: 04/08/252056 PATIENT: LORE OCONNELL MR#: [id number] : 1940 SEX: F AGE: 84 LOCATION: [facility] ORDER 1 STATUS: ADM IN REPORT#: [id number] SERVICE 0 REASON: HF ORDERING PHYSICIAN: BOYD GUERRA PAC PROCEDURE: ECHO CMP - ECHO 2-D COMPLETE APPROVED REPORT EXAM: Two-dimensional and M-mode echocardiogram with Doppler and color Doppler. INDICATION ICD: Elevated liver enzymes 2D Dimensions RVDd 5.0 cm LVEF(%) 54.9 (>50%) LA ESV INDEX (BP) 85.96 mL/m2 IVSd 0.8 (0.7-1.1cm) FS(%) 29 % LVDd 5.1 (3.8-5.6cm) LA (2D) 6.2 (1.6-4.0cm) PWd 1.2 (0.7-1.1cm) Ao Root(2D) 3.0 (2.0-3.7cm) IVSs 1.0 cm LVOT diam 2.2 (1.8-2.4cm) LVDs 3.6 (2.5-4.0cm) PWs 1.5 cm M-Mode Dimensions EPSS 0.9 cm LA (MM) 7.0 (1.6-4.0cm) Ao Root(MM) 3.4 (2.0-3.7cm) Aortic Valve AoV Vmax 1.7 m/s Ao Peak GR 11.9 mmHg LVOT Vmax 0.8 m/s AoV VTI 0.3 m Ao Mean GR 6.7 mmHg LVOT VTI 0.12 m VERONICA (VMAX) 1.64 cm2 Al P1/2T 575 ms VERONICA (VTI) 1.5 cm2 Mitral Valve MV E Vmax 81.2 cm/s DECEL Time 181 ms MV A Vmax 73.1 cm/s P 1/2 T 42 ms E/A ratio 1.1 MVA (PHT) 5.2 cm2 TDI E/E' Medial 14.3 E/E' Lateral 13.4 Medial E' Peak V 5.67 cm/s Lateral E' Peak V 6.04 cm/s Pulmonary Valve PV Vmax 1.2 m/s PI End Ximena. Jonel 142.2 cm/s PV Mean GR 2.7 mmHg PV Peak GR 5.6 mmHg Tricuspid Valve TR Vmax 2.6 m/s RAP (EST) 3 mmHg RVSP 30.0 mmHg TR Peak GR 27.0 mmHg Left Ventricle The left ventricle is normal size. There is global hypokinesis of the left ventricle. There is normal left ventricular wall thickness. LVEF is 30-35%. E/A flow is fused. Right Ventricle The right ventricle is severely dilated. Right ventricular systolic function is mildly reduced. Device lead is present in the right ventricle. Atria The left atrium is severely dilated. LASVI 86mL/m The interatrial septum is intact with no evidence for an atrial septal defect by color. Evidence of increased left atrial pressure with the atrial septum bowed to the right. The right atrium is severely dilated. Aortic Valve Aortic valve is trileaflet, mildly sclerotic and thickened but opens well. Mild aortic regurgitation is present. There is no aortic valvular stenosis. Mitral Valve The mitral valve is thickened. There is mild mitral valve regurgitation noted. There is no mitral valve stenosis. Tricuspid Valve The tricuspid valve is normal in structure. There is no tricuspid valve regurgitation noted. RVSP 30 mmHg Pulmonic Valve The pulmonary valve is normal in structure. There is trace of pulmonic valvular regurgitation. Great Vessels The aortic root is normal in size. The IVC is normal in size and collapses >50% with inspiration. Pericardium There is small pericardial effusion seen posteriorly. Other Information Quality : Adequate Rhythm : NSR Conclusion There is global hypokinesis of the left ventricle. LVEF is 30-35%. The right ventricle is severely dilated and hypokinetic. Device lead is present in the right ventricle. Left atrium is severely dilated. LASVI 86mL/m. No atrial septal defect by color. Evidence of increased left atrial pressure with the atrial septum bowed to the right. Mild aortic regurgitation. Thckened mitral valve leaflets. Mild mitral valve regurgitation. Small pericardial effusion seen posteriorly. DICTATED BY: KASH DUONG DO DATE: 04/07/25 6620 ELECTRONICALLY SIGNED BY: KASH DUONG DO DATE: 04/07/25 1562 ASSESSMENT: Acute on chronic kidney disease Anemia Retroperitoneal hemorrhage newly diagnosed via CT scan of the abdomen Acute hypoxic respiratory failure present on admission currently on mechanical ventilatory support via endotracheal tube Severe sepsis with shock Severe metabolic acidosis Hospital-acquired pneumonia Acute complicated cystitis Atrial fibrillation on chronic anticoagulation therapy Dilated cardiomyopathy ejection fraction 35-40% with moderate pulmonary hypotension Remote CVA Hx of Right lower extremity DVT History of right TKA Suspected AICD malfunction Status post AICD PLAN: Labs, diagnostic, radiologic exams reviewed and interpreted by myself and supervising physician Family has wishes to proceed with comfort measures, which we are in agreement with. Discontinue all lab work as per family wishes May use Dilaudid 0.5 mg IV every 6 hours as needed for severe pain Will continue to monitor renal function, anemia, electrolytes Treatment plan discussed with patient Questions were answered We have discussed with the other team physicians in detail about the care plan We will continue to monitor the patient closely ATTESTATION BY PHYSICIAN I have seen and examined the patient. I reviewed the documentation, medical decision making, and treatment plan as noted by the mid-level provider above. I agree with the findings and plan of care. BREANA YUSUF MD, [facility] Apr 21, 2025 14:53
--- NOTE | 2025-04-21 14:56 | NUR ---
called [employer] to [employer] representative for AICD to turn off
--- NOTE | 2025-04-21 17:06 | DS ---
SUMMARY ADMITTING DIAGNOSES: Respiratory failure, pneumonia, acute kidney failure, hypertension, hypertensive shock, acidosis. HOSPITAL COURSE: An 84-year-old patient was admitted with above. The patient was admitted DNR/DNI, and then as the patient is not improving, patient's family decided her to be at comfort care and patient changed to comfort care and patient on 04/21/2025. TID: [id number] RECEIPT: [id number]
--- NOTE | 2025-04-22 00:15 | HMCIMG ---
EXAM: CR CHEST, 1 VIEW CLINICAL HISTORY: Heart failure. Fluid overload. COMPARISON: Prior chest radiograph dated 04/20/2025. TECHNIQUE: Single frontal radiograph of the chest was obtained. FINDINGS: Lines/Devices: Again seen is a left chest wall pacemaker with its electrodes overlying the right heart Chambers. Again seen is a nasogastric catheter overlying the central chest with its tip, likely within the stomach. Again seen is a right sided PICC line with its tip in the superior vena cava. Lungs: The pulmonary parenchyma and the chyna are congested, stable since the prior examination. Again seen are bilateral pleural effusions, right greater than left. There is no pneumothorax. Mediastinum and cardiovascular structures: Again seen is large cardiomegaly with splaying of the juanito. The central airway and mediastinal contours are unremarkable except for splaying of the juanito. Calcifications of the aortic arch noted. Bones and soft tissues: There are degenerative changes in the spine, stable. There is no chest wall emphysema. The remaining visualized bones and soft tissues are unremarkable. IMPRESSION: 1. Stable cardiomegaly with congestive cardiac failure causing interstitial pulmonary edema, bilateral pleural effusions. No interval changes since the prior chest x-ray dated April 20, 2025. 2. Stable lines and tubes. /[place]
--- NOTE | 2025-04-22 22:18 | PN ---
SUBJECTIVE: The patient continues with antibiotics, BiPAP, inotropics, diuretics. No fever or chills. OBJECTIVE: GENERAL: The patient currently with a BiPAP machine in place. Better response to call. Minimal movement of upper and lower extremities. VITAL SIGNS: Blood pressure 105/45, pulse 90, respiratory rate 16. HEENT: Normocephalic, atraumatic. LUNGS: Decreased breath sounds bilaterally. HEART: S1, S2 are distant. ABDOMEN: Prominence, soft, nontender. EXTREMITIES: No clubbing or cyanosis. 1+ pitting edema. NEUROLOGIC: Open eyes to call. Minimal verbal response. LABORATORY DATA: WBC count down to 11.6, hemoglobin 8.7, platelets 95,000. Sodium 136, potassium 3.7, BUN 132, creatinine 3.9, glucose 147, lactic acid 3.6, total calcium 7.6, albumin 1.5. ASSESSMENT: * Sepsis, improving. Continue with Diflucan and meropenem. Followup recommendations by ICU team. Family has decided for DNR/DNI. Have not decided yet regarding comfort care. * Acute kidney injury with uremic syndrome. Continue to monitor. The patient is not a candidate for hemodialysis. * Anemia. Continue to monitor. * Congestive heart failure, status post biventricular pacemaker placement and AICD. Continue supportive care. * Atrial fibrillation, rate controlled. * Type 2 diabetes. Continue ICU protocol. * Respiratory failure with hypoxemia. Continue with BiPAP. * Urinary tract infection. Positive cultures with Sabrina. Continue with Diflucan. PLAN: The patient's condition is critical. We will continue with ICU recommendations. It might be better to continue with comfort treatment. DOS: 04/19/2025 TID: [id number] RECEIPT: [id number] [facility]
== END 2025-04-21 16:40 | DRG 870 ==
LOC: EDH 07:12 → EDHIP 09:20 → 2BH 13:29 → 2CH 04-11 16:18 → 4CH 04-21 11:11
PROVIDERS: ADMIT Internal Medicine; ATTEND Internal Medicine
PROC: 5A1955Z Respiratory Ventilation, Greater than 96 Consecutive Hours (ICD-10-PCS; principal; 2025-04-06)
PROC: 0BH17EZ Insertion of Endotracheal Airway into Trachea, Via Natural or Artificial Opening (ICD-10-PCS; 2025-04-06)
PROC: 02HV33Z Insertion of Infusion Device into Superior Vena Cava, Percutaneous Approach (ICD-10-PCS; 2025-04-06)
PROC: 30233N1 Transfusion of Nonautologous Red Blood Cells into Peripheral Vein, Percutaneous Approach (ICD-10-PCS; 2025-04-07)
PROC: 02HV33Z Insertion of Infusion Device into Superior Vena Cava, Percutaneous Approach (ICD-10-PCS; 2025-04-08)
PROC: 30233K1 Transfusion of Nonautologous Frozen Plasma into Peripheral Vein, Percutaneous Approach (ICD-10-PCS; 2025-04-09)
PROC: 5A09357 Assistance with Respiratory Ventilation, Less than 24 Consecutive Hours, Continuous Positive Airway Pressure (ICD-10-PCS; 2025-04-14)
PROC: 5A09357 Assistance with Respiratory Ventilation, Less than 24 Consecutive Hours, Continuous Positive Airway Pressure (ICD-10-PCS; 2025-04-15)
PROC: 5A09357 Assistance with Respiratory Ventilation, Less than 24 Consecutive Hours, Continuous Positive Airway Pressure (ICD-10-PCS; 2025-04-16)
PROC: 5A09357 Assistance with Respiratory Ventilation, Less than 24 Consecutive Hours, Continuous Positive Airway Pressure (ICD-10-PCS; 2025-04-17)
PROC: 5A09357 Assistance with Respiratory Ventilation, Less than 24 Consecutive Hours, Continuous Positive Airway Pressure (ICD-10-PCS; 2025-04-18)
PROC: 5A09357 Assistance with Respiratory Ventilation, Less than 24 Consecutive Hours, Continuous Positive Airway Pressure (ICD-10-PCS; 2025-04-19)
PROC: 5A09357 Assistance with Respiratory Ventilation, Less than 24 Consecutive Hours, Continuous Positive Airway Pressure (ICD-10-PCS; 2025-04-20)
PROC: 5A09357 Assistance with Respiratory Ventilation, Less than 24 Consecutive Hours, Continuous Positive Airway Pressure (ICD-10-PCS; 2025-04-21)
DX: A41.9 Sepsis, unspecified organism (principal); J18.9 Pneumonia, unspecified organism; J96.01 Acute respiratory failure with hypoxia; R65.21 Severe sepsis with septic shock; K68.3 Retroperitoneal hematoma; K72.00 Acute and subacute hepatic failure without coma; G93.41 Metabolic encephalopathy; J69.0 Pneumonitis due to inhalation of food and vomit; E87.20 Acidosis, unspecified; I31.39 Other pericardial effusion (noninflammatory); J44.0 Chronic obstructive pulmonary disease with (acute) lower respiratory infection; N13.6 Pyonephrosis; Z99.11 Dependence on respirator [ventilator] status; N17.9 Acute kidney failure, unspecified; D69.6 Thrombocytopenia, unspecified; Z79.01 Long term (current) use of anticoagulants; I13.0 Hypertensive heart and chronic kidney disease with heart failure and stage 1 through stage 4 chronic kidney disease, or unspecified chronic kidney disease; D64.9 Anemia, unspecified; E11.22 Type 2 diabetes mellitus with diabetic chronic kidney disease; N18.9 Chronic kidney disease, unspecified; E66.01 Morbid (severe) obesity due to excess calories; I27.20 Pulmonary hypertension, unspecified; I42.0 Dilated cardiomyopathy; I48.20 Chronic atrial fibrillation, unspecified; J98.11 Atelectasis; Z66 Do not resuscitate; Z96.653 Presence of artificial knee joint, bilateral; I50.9 Heart failure, unspecified; I25.10 Atherosclerotic heart disease of native coronary artery without angina pectoris; F41.9 Anxiety disorder, unspecified; N27.0 Small kidney, unilateral; Z51.5 Encounter for palliative care; I48.91 Unspecified atrial fibrillation; Y95 Nosocomial condition; Z86.718 Personal history of other venous thrombosis and embolism; Z86.73 Personal history of transient ischemic attack (TIA), and cerebral infarction without residual deficits; Z95.810 Presence of automatic (implantable) cardiac defibrillator
CPT/HCPCS: 31500; 36415; 36430; 36569; 36600; 70450; 71045; 71250; 73700; 74018; 74176; 76700; 76770; 80048; 80051; 80053; 80202; 81001; 82140; 82270; 82435; 82728; 82803; 82947; 82948; 83540; 83550; 83605; 83735; 83880; 83935; 84100; 84132; 84295; 84443; 84484; 84550; 85014; 85018; 85025; 85027; 85378; 85384; 85610; 85730; 86850; 86900; 86901; 86923; 86927; 87040; 87046; 87071; 87086; 87205; 87635; 87804; 87880; 92610; 93005; 93306; 93308; 93356; 93970; 94002; 94003; 94640; 94660; 94664; 96360; 97161; 99291; C1894; G0378; J0169; J0456; J0612; J0696; J1250; J1450; J1756; J1815; J1938; J2020; J2060; J2185; J2248; J2250; J2270; J2371; J2470; J2919; J3010; J3360; J3373; J3411; J3475; J3490; J7030; J7050; J7070; J7131; P9016; P9017; P9047; A9900; C1751; J3370; Q5106